=== PATIENT | female | born 1930 | race American Indian/Alaskan Native ===

== ENCOUNTER 2017-07-16 08:28 | Observation (INO) | payer OTHER ==
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
[2017-07-16] MEDS ORDERED: KETOROLAC TROMETHAMINE 30 MG/1 ML VIAL IVPUSH ONE (09:09)
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
[2017-07-16] MEDS ORDERED: ACETAMINOPHEN 1000 MG/100 ML VIAL (NON FORMULARY) IVPB ONE (09:43)
[2017-07-16] MEDS ORDERED: ACETAMINOPHEN INJECTION 100 ML IVPB ONE (09:51)
[2017-07-16 10:13] LABS: BASO % 0.8 % (0-2.0); EOS % 2.8 % (0-4.5); HEMOGLOBIN 12.3 GM/dL (10.7-15.3); LYMPH % 12.8 % (8-40); MCH 29.1 pg (25.7-33.7); MCHC 34.1 g/dl (32.0-36.0); MEAN CELL VOLUME 85.4 fl (80-96); MEAN PLT VOLUME 7.6 fl (7.5-11.1); MONO % 12.2 % (3.8-10.2); NEUT % 71.4 % (42.8-82.8); PLATELET COUNT 333 K/MM3 (134-434); RBC 4.21 M/mm3 (3.60-5.2); RDW 12.9 % (11.6-15.6); WHITE BLOOD COUNT 10.4 K/mm3 (4.0-10.0)
[2017-07-16 10:14] LABS: INR 1.06 (0.82-1.09)
[2017-07-16 10:33] LABS: N-TERMINAL BNP 2325.02 pg/ml (5-450)
[2017-07-16] MEDS ORDERED: traMADol HCL 50 MG TABLET PO ONE (10:34)
[2017-07-16 10:54] LABS: ALK PHOS 57 U/L (45-117); ANION GAP 12 (8-16); BILIRUBIN,TOTAL 0.7 mg/dL (0.2-1.0); BLOOD UREA NITROGEN 29 mg/dL (7-18); CALCIUM 9.7 mg/dL (8.5-10.1); CHLORIDE 92 mmol/L (98-107); CO2 24 mmol/L (21-32); CREATININE 1.7 mg/dL (0.55-1.02); GLUCOSE,RANDOM 174 mg/dL (74-106); POTASSIUM 4.4 mmol/L (3.5-5.1); SGOT/AST 12 U/L (15-37); SGPT/ALT 13 U/L (12-78); SODIUM 128 mmol/L (136-145); TOT PROT 7.1 g/dl (6.4-8.2); URIC ACID 6.3 mg/dL (2.6-7.2)
[2017-07-16] MEDS ORDERED: traMADol HCL 50 MG TABLET ONE (11:18)
[2017-07-16 13:09] VITALS: BMI 29.2
--- NOTE | 2017-07-16 16:19 | CON.ORTH ---
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: CVA (Residual rt sided weakness) Cardio/Vascular: Yes: CAD, CHF, HTN, Hyperlipdemia Musculoskeletal: Yes: Osteoarthritis Endocrine: Yes: Diabetes Mellitus - Alcohol/Substance Use Hx Alcohol Use: No - Smoking History Smoking history: Never smoked Have you smoked in the past 12 months: No Aproximately how many cigarettes per day: 0 - Social History Usual Living Arrangement: With Child ADL: Independent History of Recent Travel: No Home Medications - Allergies Allergies/Adverse Reactions: Allergies Allergy/AdvReac Type Severity Reaction Status Date / Time No Known Allergies Allergy Verified 07/16/17 08:34 - Home Medications Home Medications: Ambulatory Orders Linagliptin [Tradjenta] 5 mg PO DAILY 04/14/16 Metoprolol Succinate [Toprol XL -] 25 mg PO DAILY 04/14/16 Nifedipine ER [Procardia XL -] 30 mg PO DAILY 04/14/16 Olmesartan Medoxomil [Benicar -] 20 mg PO DAILY 04/14/16 Clopidogrel Bisulfate [Plavix -] 75 mg PO DAILY tablet 04/24/16 Rosuvastatin [Crestor -] 10 mg PO HS tablet 04/24/16 Physical Exam for Ortho Vital Signs: Vital Signs Temperature 98.2 F 07/16/17 08:35 Pulse Rate 81 07/16/17 13:03 Respiratory Rate 18 07/16/17 13:03 Blood Pressure 142/92 07/16/17 13:03 O2 Sat by Pulse Oximetry (%) 97 07/16/17 13:03 Labs: CBC, BMP 07/16/17 09:42 07/16/17 10:34 INR, PTT INR 1.06 (0.82-1.09) 07/16/17 09:42 - Lower Extremity Knee: Yes: Right, Limited ROM, Pain, Swelling, Tenderness, Other (2+ effusion, + ttp, ROM 0-70, able to SLR, nvi) Imaging - Results X-ray: Report Reviewed, Image Reviewed Assessment/Plan 87 YOF with h/o osteoarthritis (states [id number] right knee), CHF, CKD, DM, CVA with residual deficits, HTN, HLD, and CAD who c/o right knee pain. No specific injury or trauma. a/p- right knee djd- medial and PF Risks and benefits were d/w pt and family in detail Will aspirate and inject depo-medrol tomorrow am Family agrees will obtain consent and perform tomorrow d/w Dr. Fontana
--- NOTE | 2017-07-16 16:31 | EKG ---
Test Reason : Blood Pressure : / mmHG Vent. Rate : 086 BPM Atrial Rate : 086 BPM P-R Int : 168 ms QRS Dur : 108 ms QT Int : 380 ms P-R-T Axes : 062 -20 066 degrees QTc Int : 454 ms SINUS RHYTHM WITH FREQUENT PREMATURE VENTRICULAR COMPLEXES LOW VOLTAGE QRS BORDERLINE ECG WHEN COMPARED WITH ECG OF 14-APR-2016 11:02, VENT. RATE HAS DECREASED BY 48 BPM Confirmed by MD SARTHAK, FORREST ([id number]) on 07/16/2017 4:31:06 PM Referred By: Confirmed By:FORREST DE LEÓN MD
[2017-07-16] MEDS ORDERED: methylPREDNISolone ACET (DEPO) 80 MG/1 ML VIAL IAR ONE (17:15)
[2017-07-16] MEDS ORDERED: KETOROLAC TROMETHAMINE 15 MG/ML VIAL IVPB ONE (20:30)
[2017-07-17] MEDS: INSULIN SLIDING SCALE (NOVOLOG) 1 VIAL SQ SCH ×4 (06:07→21:13)
[2017-07-17 08:06] LABS: ALK PHOS 53 U/L (45-117); ANION GAP 9 (8-16); BILIRUBIN,TOTAL 0.4 mg/dL (0.2-1.0); BLOOD UREA NITROGEN 27 mg/dL (7-18); CALCIUM 9.1 mg/dL (8.5-10.1); CHLORIDE 95 mmol/L (98-107); CO2 25 mmol/L (21-32); CREATININE 1.6 mg/dL (0.55-1.02); GLUCOSE,RANDOM 118 mg/dL (74-106); POTASSIUM 4.7 mmol/L (3.5-5.1); SGOT/AST 10 U/L (15-37); SGPT/ALT 11 U/L (12-78); SODIUM 129 mmol/L (136-145); TOT PROT 6.5 g/dl (6.4-8.2)
[2017-07-17] MEDS ORDERED: LIDOCAINE HCL 1%, 10 MG/ML (20ML VIAL) ONE (09:31)
[2017-07-17] MEDS ORDERED: PT OWN MED DRAWER 7, Y5N ONE (09:33)
[2017-07-17] MEDS: HEPARIN NA (PORCINE) 5,000 UNITS/ML 1ML VIAL SQ SCH ×3 (09:42→21:06)
[2017-07-17] MEDS: CELECOXIB 200 MG CAPSULE PO SCH ×2 (09:42→21:06)
[2017-07-17] MEDS: metoPROLOL SUCCINATE 25 MG TAB.SR.24H (FP) PO SCH (09:42)
[2017-07-17] MEDS: VALSARTAN 160 MG TABLET (UD) PO SCH (09:42)
[2017-07-17] MEDS: PANTOPRAZOLE 40 MG TABLET (FP) PO SCH (09:42)
[2017-07-17] MEDS: NIFEdipine E.R. 30 MG TABLET (FP) PO SCH (09:42)
[2017-07-17] MEDS: CLOPIDOGREL BISULFATE 75 MG TABLET (FP) PO SCH (09:42)
[2017-07-17] MEDS ORDERED: methylPREDNISolone ACET (DEPO) 80 MG/1 ML VIAL IAR ONE (09:45)
[2017-07-17 11:28] LABS: HEMATOCRIT 33.9 % (32.4-45.2); MCH 30.3 pg (25.7-33.7); MCHC 35.3 g/dl (32.0-36.0); MEAN CELL VOLUME 85.9 fl (80-96); MEAN PLT VOLUME 7.5 fl (7.5-11.1); PLATELET COUNT 328 K/MM3 (134-434); RBC 3.95 M/mm3 (3.60-5.2); RDW 13.1 % (11.6-15.6); WHITE BLOOD COUNT 10.4 K/mm3 (4.0-10.0)
--- NOTE | 2017-07-17 11:50 | PN ---
Progress Note (short form) - Note Progress Note: I aspirated the knee and got 80cc of clear fluid. I injected 80mg depomedrol and 10cc lidocaine into the knee.
[2017-07-17 12:41] LABS: ANISOCYTOSIS 0; MACROCYTOSIS 0; PLATELET ESTIMATE NORMAL
--- NOTE | 2017-07-17 13:40 | HP ---
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: CVA (Residual rt sided weakness) Cardiovascular: Yes: CAD, CHF, HTN, Hyperlipdemia Musculoskeletal: Yes: Osteoarthritis Endocrine: Yes: Diabetes Mellitus - Smoking History Smoking history: Never smoked Have you smoked in the past 12 months: No Aproximately how many cigarettes per day: 0 - Alcohol/Substance Use Hx Alcohol Use: No - Social History ADL: Independent History of Recent Travel: No Home Medications - Allergies Allergies/Adverse Reactions: Allergies Allergy/AdvReac Type Severity Reaction Status Date / Time No Known Allergies Allergy Verified 07/16/17 08:34 - Home Medications Home Medications: Ambulatory Orders Linagliptin [Tradjenta] 5 mg PO DAILY 04/14/16 Metoprolol Succinate [Toprol XL -] 25 mg PO DAILY 04/14/16 Nifedipine ER [Procardia XL -] 30 mg PO DAILY 04/14/16 Olmesartan Medoxomil [Benicar -] 20 mg PO DAILY 04/14/16 Clopidogrel Bisulfate [Plavix -] 75 mg PO DAILY tablet 04/24/16 Rosuvastatin [Crestor -] 10 mg PO HS tablet 04/24/16 Physical Examination Vital Signs: Vital Signs Temperature 98.5 F 07/17/17 09:00 Pulse Rate 95 H 07/17/17 09:00 Respiratory Rate 18 07/17/17 09:00 Blood Pressure 157/104 07/17/17 09:00 O2 Sat by Pulse Oximetry (%) 96 07/16/17 23:30 Labs: CBC, BMP 07/17/17 07:06 07/17/17 07:06
[2017-07-17] MEDS ORDERED: INSULIN (NOVOLOG) ASPART 100 UNITS/ML 10ML VIAL ONE (21:12)
[2017-07-17] MEDS ORDERED: ROSUVASTATIN CA 10 MG TABLET (FP) PO SCH (22:00)
[2017-07-18] MEDS: INSULIN SLIDING SCALE (NOVOLOG) 1 VIAL SQ SCH ×2 (06:00→10:08)
[2017-07-18] MEDS ORDERED: PT OWN MED DRAWER 7, Y5N ONE (09:40)
[2017-07-18] MEDS: VALSARTAN 160 MG TABLET (UD) PO SCH (09:56)
[2017-07-18] MEDS: NIFEdipine E.R. 30 MG TABLET (FP) PO SCH (09:56)
[2017-07-18] MEDS: PANTOPRAZOLE 40 MG TABLET (FP) PO SCH (09:57)
[2017-07-18] MEDS: CELECOXIB 200 MG CAPSULE PO SCH (09:57)
[2017-07-18] MEDS: metoPROLOL SUCCINATE 25 MG TAB.SR.24H (FP) PO SCH (09:57)
[2017-07-18] MEDS: HEPARIN NA (PORCINE) 5,000 UNITS/ML 1ML VIAL SQ SCH (09:57)
[2017-07-18] MEDS: CLOPIDOGREL BISULFATE 75 MG TABLET (FP) PO SCH (09:57)
[2017-07-18] MEDS ORDERED: INSULIN (NOVOLOG) ASPART 100 UNITS/ML 10ML VIAL ONE (10:07)
--- NOTE | 2017-07-18 10:19 | PN ---
Progress Note (short form) - Note Progress Note: Pt's right knee doing much better after aspiration of fluid. Pt's daughter states she can walk, put some weight on her right leg. Decreased joint effusion. Right knee not hot, no erythema, no signs of infection. Good ROM Imp Pt doing well, much better. Rec WBAT, ambulate, P.T. if necessary Can DC from an ortho pov
[2017-07-18 15:31] VITALS: BP 126/65; PULSE 79; TEMP 98
== END 2017-07-18 15:55 | disposition home or self-care (01) ==
LOC: JER 08:28 → UNDOADMOB 11:56 → INTOOBSV 11:56 → JERBED 11:56 → J6S 14:59
PROVIDERS: ADMIT Internal Medicine; ATTEND Internal Medicine
PROC: 0S9C3ZZ Drainage of Right Knee Joint, Percutaneous Approach (ICD-10-PCS; principal; 2017-07-16)
PROC: 3E013VG Introduction of Insulin into Subcutaneous Tissue, Percutaneous Approach (ICD-10-PCS; 2017-07-16)
PROC: 3E013GC Introduction of Other Therapeutic Substance into Subcutaneous Tissue, Percutaneous Approach (ICD-10-PCS; 2017-07-16)
DX: M25.461 Effusion, right knee (principal); R79.82 Elevated C-reactive protein (CRP); M17.11 Unilateral primary osteoarthritis, right knee; I50.9 Heart failure, unspecified; I12.9 Hypertensive chronic kidney disease with stage 1 through stage 4 chronic kidney disease, or unspecified chronic kidney disease; E11.22 Type 2 diabetes mellitus with diabetic chronic kidney disease; N18.9 Chronic kidney disease, unspecified; E78.5 Hyperlipidemia, unspecified; I25.10 Atherosclerotic heart disease of native coronary artery without angina pectoris; Z79.01 Long term (current) use of anticoagulants; I69.351 Hemiplegia and hemiparesis following cerebral infarction affecting right dominant side
CPT/HCPCS: 36415; 73562-TC-RT-FY; 73700-TC-RT; 80053; 82962; 83880; 84550; 85025; 85610; 85651; 86140; 93005; 93010; 96372; 97116-GP; 97161-GP; 99285-25; G0378; J0131; J1644

== ENCOUNTER 2018-04-20 11:52 | Inpatient (IN) | payer OTHER ==
--- NOTE | 2018-04-20 12:08 | PDOC ---
History of Present Illness - General Stated Complaint: KNEE PAIN Time Seen by Provider: 04/20/18 11:59 - History of Present Illness Initial Comments: 04/20/18 12:01 88 yo F with h/o right knee OA, DM, HTN, CKD, CVA ( residual R sided weakness) who p/w Rt. knee pain and swelling. Patient with acute right knee pain, and swelling x 2 days. Denies trauma to knee. Typically ambulates with cane , but has been unable to bear weight on right knee beginning yesterday. Denies fall , LOC, head trauma. Seen by Dr. Fontana and admitted to [facility] ( 07/2017) with similar R knee complaint, and inability to ambulate, with R knee aspiration, and depo-solumedrol injection. CT RLE with degenerative R knee arthritis, and mod suprapatellar effusion. Has attempted Celecoxib 200 mg with no relief. Patient denies Palpitations, cough, wheezing, N/V, F/C, CP, SOB, urinary complaints, hematuira, BPR, abdominal pain, diarrhea, constipation, lightheadedness, weakness, sensory changes. PMHx: as noted above ROS: as noted SHx: Denies tobacco, Etoh, IVDA Allergies: NKDA Past History - Past Medical History Allergies/Adverse Reactions: Allergies Allergy/AdvReac Type Severity Reaction Status Date / Time No Known Allergies Allergy Verified 04/20/18 12:09 Home Medications: Ambulatory Orders Celecoxib [Celebrex] 200 mg PO BID 04/20/18 Clopidogrel Bisulfate [Plavix] 75 mg PO DAILY 04/20/18 Linagliptin [Tradjenta] 5 mg PO DAILY 04/20/18 Metoprolol Succinate [Toprol Xl] 25 mg PO DAILY 04/20/18 Nifedipine ER [Procardia Xl -] 30 mg PO DAILY 04/20/18 Olmesartan Medoxomil [Benicar] 20 mg PO DAILY 04/20/18 Rosuvastatin [Crestor -] 10 mg PO DAILY 04/20/18 Anemia: No Asthma: No Cancer: No Cardiac Disorders: Yes CVA: Yes (Pt notes balance deficit) COPD: No CHF: No Diabetes: Yes Dialysis: No (CKD) GI Disorders: Yes Disorders: Yes HTN: Yes Hypercholesterolemia: Yes Liver Disease: No Thyroid Disease: No - Surgical History Abdominal Surgery: Yes Appendectomy: No Cardiac Surgery: No Cholecystectomy: No Lung Surgery: No Neurologic Surgery: No Orthopedic Surgery: No - Suicide/Smoking/Psychosocial Hx Smoking Status: No Smoking History: Never smoked Have you smoked in the past 12 months: No Number of Cigarettes Smoked Daily: 0 Hx Alcohol Use: No Drug/Substance Use Hx: No Substance Use Type: None Hx Substance Use Treatment: No Review of Systems - Review of Systems Comments:: 04/20/18 12:09 GENERAL/CONSTITUTIONAL: No fever or chills. No weakness. HEAD, EYES, EARS, NOSE AND THROAT: No change in vision. No ear pain or discharge. No sore throat. CARDIOVASCULAR: No chest pain or shortness of breath RESPIRATORY: No cough, wheezing, or hemoptysis. GASTROINTESTINAL: No nausea, vomiting, diarrhea or constipation. GENITOURINARY: No dysuria, frequency, or change in urination. MUSCULOSKELETAL: + R knee pain and swelling. No joint or muscle swelling or pain. No neck or back pain. SKIN: No rash NEUROLOGIC: No headache, vertigo, loss of consciousness, or change in strength/ sensation. ENDOCRINE: No increased thirst. No abnormal weight change HEMATOLOGIC/LYMPHATIC: No anemia, easy bleeding, or history of blood clots. ALLERGIC/IMMUNOLOGIC: No hives or skin allergy. *Physical Exam - Physical Exam Comments: 04/20/18 12:09 GENERAL: Awake, alert, and fully oriented, in no acute distress HEAD: No signs of trauma, normocephalic, atraumatic EYES: PERRLA, EOMI, sclera anicteric, conjunctiva clear ENT: Hearing grossly normal, nares patent, oropharynx clear without exudates. Moist mucosa NECK: Normal ROM, supple, no lymphadenopathy, JVD, or masses LUNGS: No distress, speaks full sentences, clear to auscultation bilaterally HEART: Regular rate and rhythm, normal S1 and S2, no murmurs, rubs or gallops, peripheral pulses normal and equal bilaterally. ABDOMEN: Soft, nontender, normoactive bowel sounds. No guarding, no rebound. No masses EXTREMITIES : Normal inspection, Normal range of motion, no edema. No clubbing or cyanosis. R KNEE: + effusion. Neg warmth, erythema. Palpable popliteal pulse. Limited ROM/ Knee flexion d/t pain. NEUROLOGICAL: Cranial nerves II through XII grossly intact. Normal speech, normal gait, no focal sensorimotor deficits SKIN: Warm, Dry, normal turgor, no rashes or lesions noted Procedures - Arthrocentesis Indication: Septic Joint Arthrocentesis Site: right: knee Flexion: 20-30 degree Betadine Prep: Yes Sterile Dressing Applied: Yes Dry Tap: No Fluid Color: Yellow Fluid Amount mL: 15 (70 ml aspirated) Anesthesia: 1% Lidocaine Needle Size (guage): 18g Complications: No ED Treatment Course - LABORATORY CBC & Chemistry Diagram: 04/20/18 12:26 04/20/18 12:26 Medical Decision Making - Medical Decision Making 04/20/18 12:10 88 yo F with h/o right knee OA, DM, HTN, CKD, CVA ( residual R sided weakness) who p/w atraumatic right knee pain and swelling. Rectal temp 100.9, HR 109, vitals otherwise wnl. + Right knee effusion, with absent warmth or erythema. RLE neurovascularly intact. Possible d/t OA. vs. septic arthritis/bursitis. will consider osteomyelitis. No evidence of overlying cellulites. . Will provide analgesia and reassess. ED Course: 04/20/18 12:24 CBC, CMP, CARDIAC, LA, VBG, ESR, CRP, RLE U/S NS 20 CC/KG 04/20/18 13:09 EKG: Sinus tach 110, with PVCs. Absent MAN, STD. Nml interval and axis duration. Absent Q waves. Nml R wave progression. 04/20/18 15:02 BUN/Cr: 33/1.8 CRP: 18.9 Na: 128 04/20/18 15:03 R KNEE RAD: Increased R knee effusion (07/16/17), with degenerative arthritis, chondrocalcinosis 04/20/18 15:08 Joint aspirated with yellow, slightly cloudy fluid. 70 ml Sent to lab for further testing, Cell count with dif, crystals, culture. Anand/Kinjal 04/20/18 15:[address] Whitaker and admitted to med/surg. *DC/Admit/Observation/Transfer Diagnosis at time of Disposition: Swelling of knee joint, right - Discharge Dispostion Condition at time of disposition: Stable Decision to Admit order: Yes - Referrals Referrals: Rayo Alberts MD [Primary Care Provider] - - Patient Instructions Printed Discharge Instructions: DI for Knee Effusion Additional Instructions: Please return to the emergency department with any new or worsening symptoms or concerns. Please follow up with your primary care physician within 72 hours. - Post Discharge Activity - Attestations Physician Attestion: 04/20/18 12:12 I attest to the information provided in this note.
--- NOTE | 2018-04-20 12:52 | PDOC ---
Attending Attestation - Resident Resident Name: Bernard Owens - ED Attending Attestation I have performed the following: I have examined & evaluated the patient, The case was reviewed & discussed with the resident, I agree w/resident's findings & plan, Exceptions are as noted - HPI HPI: 04/20/18 12:53 The patient is a 88 year old female with a past medical history significant for OA (right knee), CHF, CKD, DM, CVA (w/ right side weakness), HTN, HLD, and CAD on plavix presents to the emergency department with right knee pain. The patient presents with progressive 2 days of right knee pain and swelling, with 1 -day difficulty bearing weight and ambulating. The patient reports the symptoms worsened today. The patient had a similar visit in July 2017, the patient presented with right knee pain with difficulty bearing weight and ambulating. The patients CT of the lower extremity showed effusion, that was drained by Dr. Sumner (ortho), then injected 80 mg of Depo-Medrol Denies recent trauma or injury to the knee, fever, chills, chest pain, SOB, recent falls, LOC, nausea, vomiting. Allergies: NKDA Social history: No tobacco, alcohol or drug use reported Surgical history: abdominal surgery. PCP: Dr. Jane Alberts - Physicial Exam PE: 04/20/18 12:54 agree with resident exam - Medical Decision Making 04/20/18 12:54 88yo F with MMP including OA presents to the ED with atraumatic progressive R sided knee pain. Vitals remarkable for tachycardia to 109, low grade temp to 100.1. DDx includes septic joint vs inflammatory effusion vs bakers cyst vs DVT. Plan: -labs -XR -US -tap -anticipate admission 04/20/18 15:49 Labs with WBC 17, elevated ESR/CRP XR with large effusion US neg for DVT/cyst Tap done with 70cc of cloudy yellow fluid. Pt covered with Vanc/Ceftriaxone Case discussed with Dr Whitaker, accepts pt for admission Case discussed in detail with admitting physician including history, physical exam and ancillary studies. Admitting physician has assumed care for the patient, will follow all pending diagnostics and will complete the evaluation and treatment. *DC/Admit/Observation/Transfer Diagnosis at time of Disposition: Swelling of knee joint, right - Discharge Dispostion Condition at time of disposition: Stable Decision to Admit order: Yes Decision to Admit order Date/Time: Decision to Admit Order Category Date Time Status Decision to Admit to Hospital Routine Admission 04/20/18 15:26 Active - Referrals Referrals: Rayo Alberts MD [Primary Care Provider] - - Patient Instructions Printed Discharge Instructions: DI for Knee Effusion Additional Instructions: Please return to the emergency department with any new or worsening symptoms or concerns. Please follow up with your primary care physician within 72 hours. - Post Discharge Activity - Attestations Physician Attestion: 04/20/18 15:52 I, Dr. Cam Hancock MD, attest that this document has been prepared under my direction and personally reviewed by me in its entirety. I further attest, that it accurately reflects all work, treatment, procedures and medical decision -making performed by me. Heart Score/ECG Review #1 04/20/18 13:37 Twelve-lead EKG was performed and reviewed by me. Sinus tachycardia, rate 110. Frequent PVCs. Normal axis. No ST elevations.
[2018-04-20 12:53] LABS: VENOUS PC02 43.2 mmHg (38-52); VENOUS PH 7.38 (7.32-7.42); VENOUS PO2 31.2 mmHg (28-48)
[2018-04-20 12:54] LABS: BASO % 0.6 % (0-2.0); EOS % 0.3 % (0-4.5); HEMATOCRIT 40.7 % (32.4-45.2); LYMPH % 5.2 % (8-40); MCH 28.8 pg (25.7-33.7); MCHC 34.5 g/dl (32.0-36.0); MEAN CELL VOLUME 83.4 fl (80-96); MEAN PLT VOLUME 7.8 fl (7.5-11.1); MONO % 10.4 % (3.8-10.2); NEUT % 83.5 % (42.8-82.8); PLATELET COUNT 371 K/MM3 (134-434); RBC 4.88 M/mm3 (3.60-5.2); RDW 13.9 % (11.6-15.6)
[2018-04-20 13:10] LABS: INR 1.14 (0.83-1.09); PROTHROMBIN TIME (PATIENT) 13.5 SEC (9.7-13.0)
[2018-04-20 13:12] LABS: ALBUMIN 2.9 g/dl (3.4-5.0); ALK PHOS 86 U/L (45-117); ANION GAP 8 MMOL/L (8-16); BILIRUBIN,TOTAL 0.8 mg/dL (0.2-1); BLOOD UREA NITROGEN 33 mg/dL (7-18); CALCIUM 9.5 mg/dL (8.5-10.1); CHLORIDE 95 mmol/L (98-107); CO2 25 mmol/L (21-32); CREATININE 1.9 mg/dL (0.55-1.3); GLUCOSE,RANDOM 205 mg/dL (74-106); POTASSIUM 4.1 mmol/L (3.5-5.1); SGOT/AST 13 U/L (15-37); SGPT/ALT 13 U/L (13-61); SODIUM 128 mmol/L (136-145); TOT PROT 7.4 g/dl (6.4-8.2)
[2018-04-20 13:13] LABS: ACTIVATED PTT 28.3 SECONDS (25.2-36.5)
[2018-04-20] MEDS ORDERED: LIDOCAINE HCL 1%, 10 MG/ML (50 mL VIAL) IO ONE (14:02)
[2018-04-20] MEDS ORDERED: LIDOCAINE HCL 1%, 10 MG/ML (20ML VIAL) ONE (14:17)
[2018-04-20] MEDS ORDERED: VANCOMYCIN 1,000 MG in DEXTROSE 5%-WATER - 250 ML IVPB ONE (15:50)
[2018-04-20] MEDS ORDERED: CEFTRIAXONE 2,000 MG in DEXTROSE 5%-WATER - 50 ML IVPB ONE (15:51)
[2018-04-20] MEDS ORDERED: CEFTRIAXONE 2 GM/100 ML BAG IVPB ONE ×2 (16:09)
[2018-04-20] MEDS ORDERED: VANCOMYCIN 1 GRAM (PRE-DOCKED) 1,000 MG/250 ML BAG IVPB ONE (16:09)
[2018-04-20 17:04] LABS: SYNOVIAL FLUID SOURCE SYNOVIAL
[2018-04-20 17:05] LABS: SYNOVIAL FLUID RBC 7720 /mm3
[2018-04-20 17:31] LABS: SYNOVIAL FLUID LYMPHOCYTES 4 %; SYNOVIAL FLUID MACROPHAGES 2 %; SYNOVIAL FLUID MONOCYTES 9 %; SYNOVIAL FLUID NEUTROPHILS 85 %
[2018-04-20 18:04] VITALS: BMI 29.0
[2018-04-20] MEDS: HEPARIN NA (PORCINE) 5,000 UNITS/ML 1ML VIAL SQ SCH (22:45)
[2018-04-20] MEDS: PIPERACILLIN/TAZOB 3.375 GM 3.375 GM in DEXTROSE 5%-WATER - 50 ML IVPB SCH (23:45)
[2018-04-21] MEDS ORDERED: DEXTROSE 5%-WATER - 50 ML IVPB ONE ×2 (03:58→11:44)
[2018-04-21] MEDS ORDERED: PIPERACILLIN/TAZOBACTAM 3.375 GM VIAL IVPB ONE (03:58)
[2018-04-21] MEDS ORDERED: VANCOMYCIN 1 GRAM (PRE-DOCKED) 1,000 MG/250 ML BAG IVPB ONE (04:00)
[2018-04-21] MEDS: PIPERACILLIN/TAZOB 3.375 GM 3.375 GM in DEXTROSE 5%-WATER - 50 ML IVPB SCH (04:07)
[2018-04-21] MEDS: sitaGLIPtin PHOSPHATE 25 MG TABLET (FP) PO SCH (06:07)
[2018-04-21] MEDS: HEPARIN NA (PORCINE) 5,000 UNITS/ML 1ML VIAL SQ SCH ×3 (06:07→21:49)
[2018-04-21] MEDS: INSULIN SLIDING SCALE (NOVOLOG) 1 VIAL SQ SCH ×4 (06:08→21:49)
[2018-04-21 07:15] LABS: BASO % 0.6 % (0-2.0); EOS % 1.5 % (0-4.5); HEMATOCRIT 37.9 % (32.4-45.2); HEMOGLOBIN 12.4 GM/dL (10.7-15.3); LYMPH % 9.2 % (8-40); MCH 27.4 pg (25.7-33.7); MCHC 32.7 g/dl (32.0-36.0); MEAN CELL VOLUME 83.6 fl (80-96); MONO % 12.2 % (3.8-10.2); NEUT % 76.5 % (42.8-82.8); PLATELET COUNT 346 K/MM3 (134-434); RBC 4.54 M/mm3 (3.60-5.2); RDW 13.7 % (11.6-15.6); WHITE BLOOD COUNT 14.8 K/mm3 (4.0-10.0)
[2018-04-21 07:34] LABS: ALBUMIN 2.3 g/dl (3.4-5.0); ALK PHOS 82 U/L (45-117); ANION GAP 7 MMOL/L (8-16); BILIRUBIN,TOTAL 0.5 mg/dL (0.2-1); BLOOD UREA NITROGEN 29 mg/dL (7-18); CALCIUM 9.2 mg/dL (8.5-10.1); CHLORIDE 95 mmol/L (98-107); CO2 23 mmol/L (21-32); CREATININE 1.9 mg/dL (0.55-1.3); GLUCOSE,RANDOM 166 mg/dL (74-106); POTASSIUM 4.2 mmol/L (3.5-5.1); SGOT/AST 15 U/L (15-37); SGPT/ALT 14 U/L (13-61); SODIUM 126 mmol/L (136-145); TOT PROT 6.2 g/dl (6.4-8.2)
--- NOTE | 2018-04-21 09:55 | EKG ---
Test Reason : Blood Pressure : / mmHG Vent. Rate : 110 BPM Atrial Rate : 110 BPM P-R Int : 160 ms QRS Dur : 106 ms QT Int : 356 ms P-R-T Axes : 056 -10 072 degrees QTc Int : 481 ms SINUS TACHYCARDIA WITH FREQUENT PREMATURE VENTRICULAR COMPLEXES OTHERWISE NORMAL ECG WHEN COMPARED WITH ECG OF 16-JUL-2017 10:14, VENT. RATE HAS INCREASED Confirmed by AINSLEY BRUNO MD ([id number]) on 04/21/2018 9:54:21 AM Referred By: Confirmed By:AINSLEY BRUNO MD
[2018-04-21] MEDS ORDERED: PATIENT'S OWN MEDICATION (NON-FORMULARY) (Olmesartan Medoxomil [Benicar] 20 MG) PO SCH (10:00)
[2018-04-21] MEDS ORDERED: PIPERACILLIN/TAZOB 3.375 GM 3.375 GM in DEXTROSE 5%-WATER - 50 ML IVPB SCH (10:00)
[2018-04-21] MEDS ORDERED: PATIENT'S OWN MEDICATION (NON-FORMULARY) (Linagliptin [Tradjenta] 5 MG) PO SCH (10:00)
[2018-04-21] MEDS: CELECOXIB 200 MG CAPSULE PO SCH ×2 (10:11→21:49)
[2018-04-21] MEDS: NIFEdipine E.R. 30 MG TABLET (FP) PO SCH (10:11)
[2018-04-21] MEDS: VALSARTAN 160 MG TABLET (UD) PO SCH (10:11)
[2018-04-21] MEDS: metoPROLOL SUCCINATE 25 MG TAB.SR.24H (FP) PO SCH (10:11)
[2018-04-21] MEDS: CLOPIDOGREL BISULFATE 75 MG TABLET (FP) PO SCH (10:11)
--- NOTE | 2018-04-21 11:24 | CON.ID ---
Consult Consult Specialty:: infectious diseases Referred by:: Reason for Consultation:: swelling of the knee joint,pain knee joint - History of Present Illness Chief Complaint: pain and swelling of the rt knee joint History of Present Illness: 88 year old female with a past medical history significant for OA , CHF, CKD, DM , CVA , HTN, HLD, and CAD on plavix presents to the emergency department with right knee pain. The patient presents with progressive 2 days of right knee pain and swelling, with 1-day difficulty bearing weight and ambulating. The patient reports the symptoms worsened today. her daughter in the room and mentions that this is the second time that the patient has had this swelling and fluid in the knee joint and also had it aspirated last time. Patient was seen by ortho and the knee joint was aspirated Denies recent trauma or injury to the knee, fever, chills, chest pain, SOB, recent falls, LOC, nausea, vomiting. 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: CVA (Residual rt sided weakness) Cardio/Vascular: Yes: CAD, CHF, HTN, Hyperlipdemia Musculoskeletal: Yes: Osteoarthritis Endocrine: Yes: Diabetes Mellitus - Alcohol/Substance Use Hx Alcohol Use: No - Smoking History Smoking history: Never smoked Have you smoked in the past 12 months: No Aproximately how many cigarettes per day: 0 - Social History Usual Living Arrangement: With Child ADL: Independent History of Recent Travel: No Home Medications - Allergies Allergies/Adverse Reactions: Allergies Allergy/AdvReac Type Severity Reaction Status Date / Time No Known Allergies Allergy Verified 04/20/18 12:09 - Home Medications Home Medications: Ambulatory Orders Celecoxib [Celebrex] 200 mg PO BID 04/20/18 Clopidogrel Bisulfate [Plavix] 75 mg PO DAILY 04/20/18 Linagliptin [Tradjenta] 5 mg PO DAILY 04/20/18 Metoprolol Succinate [Toprol Xl] 25 mg PO DAILY 04/20/18 Nifedipine ER [Procardia Xl -] 30 mg PO DAILY 04/20/18 Olmesartan Medoxomil [Benicar] 20 mg PO DAILY 04/20/18 Rosuvastatin [Crestor -] 10 mg PO DAILY 04/20/18 Review of Systems - Review of Systems Constitutional: reports: Fever Eyes: reports: No Symptoms HENT: reports: No Symptoms Neck: reports: No Symptoms Cardiovascular: reports: No Symptoms Respiratory: reports: No Symptoms Gastrointestinal: reports: No Symptoms Genitourinary: reports: No Symptoms Musculoskeletal: reports: Joint Pain, Joint Swelling Integumentary: reports: Erythema (of the rt knee joint) Neurological: reports: No Symptoms Endocrine: reports: No Symptoms Hematology/Lymphatic: reports: No Symptoms Psychiatric: reports: No Symptoms Physical Exam Vital Signs: Vital Signs Temperature 98.3 F 04/21/18 10:10 Pulse Rate 102 H 04/21/18 10:10 Respiratory Rate 20 04/21/18 10:10 Blood Pressure 138/67 04/21/18 10:10 O2 Sat by Pulse Oximetry (%) 98 04/21/18 09:00 Constitutional: Yes: Well Nourished, Calm, Mild Distress Eyes: Yes: Conjunctiva Clear HENT: Yes: Atraumatic Neck: Yes: Supple, Trachea Midline Cardiovascular: Yes: Regular Rate and Rhythm Respiratory: Yes: Regular, CTA Bilaterally Gastrointestinal: Yes: Normal Bowel Sounds, Soft Musculoskeletal: Yes: Joint Swelling (rt knee) Extremities: Yes: Other Integumentary: Yes: Erythema (rt knee) Neurological: Yes: Alert, Oriented Psychiatric: Yes: Alert, Oriented Labs: CBC, BMP 04/21/18 06:30 04/21/18 06:30
[2018-04-21] MEDS ORDERED: cefTRIAXone SODIUM 1 GM VIAL ONE (11:44)
[2018-04-21] MEDS: CEFTRIAXONE 1 GM in DEXTROSE 5%-WATER - 50 ML IVPB SCH (11:46)
--- NOTE | 2018-04-21 13:04 | HP ---
Admitting History and Physical - Admission History of Present Illness: Pt is a 88 y/o female W/ PMH significant for OA, DM, HTN, CKD and CVA ( residual R sided weakness). Pt presented to the ER w/ Rt. knee pain and swelling wc began acutely 2 days ago. Pt denies any trauma to knee. Typically ambulates with cane , but has been unable to bear weight on right knee beginning yesterday. CT RLE with degenerative R knee arthritis, and mod suprapatellar effusion. Has attempted Celecoxib 200 mg with no relief. RT knee was aspirated in ER. 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: CVA (Residual rt sided weakness) Cardiovascular: Yes: CAD, CHF, HTN, Hyperlipdemia Musculoskeletal: Yes: Osteoarthritis Rheumatology: Yes: Other (OA) Endocrine: Yes: Diabetes Mellitus - Smoking History Smoking history: Never smoked Have you smoked in the past 12 months: No Aproximately how many cigarettes per day: 0 - Alcohol/Substance Use Hx Alcohol Use: No - Social History ADL: Independent History of Recent Travel: No Home Medications - Allergies Allergies/Adverse Reactions: Allergies Allergy/AdvReac Type Severity Reaction Status Date / Time No Known Allergies Allergy Verified 04/20/18 12:09 - Home Medications Home Medications: Ambulatory Orders Celecoxib [Celebrex] 200 mg PO BID 04/20/18 Clopidogrel Bisulfate [Plavix] 75 mg PO DAILY 04/20/18 Linagliptin [Tradjenta] 5 mg PO DAILY 04/20/18 Metoprolol Succinate [Toprol Xl] 25 mg PO DAILY 04/20/18 Nifedipine ER [Procardia Xl -] 30 mg PO DAILY 04/20/18 Olmesartan Medoxomil [Benicar] 20 mg PO DAILY 04/20/18 Rosuvastatin [Crestor -] 10 mg PO DAILY 04/20/18 Family Disease History - Family Disease History Family History: Unremarkable Review of Systems - Review of Systems Constitutional: reports: No Symptoms Eyes: reports: No Symptoms HENT: reports: No Symptoms Neck: reports: No Symptoms Cardiovascular: reports: No Symptoms Respiratory: reports: No Symptoms Gastrointestinal: reports: No Symptoms Physical Examination Vital Signs: Vital Signs Temperature 98.3 F 04/21/18 10:10 Pulse Rate 102 H 04/21/18 10:10 Respiratory Rate 20 04/21/18 10:10 Blood Pressure 138/67 04/21/18 10:10 O2 Sat by Pulse Oximetry (%) 98 04/21/18 09:00 Constitutional: Yes: Well Nourished Neck: Yes: WNL, Supple Cardiovascular: Yes: WNL, Regular Rate and Rhythm Respiratory: Yes: WNL, Regular, CTA Bilaterally Gastrointestinal: Yes: WNL, Normal Bowel Sounds, Soft Musculoskeletal: Yes: Other ((+) RT knee swelling) Labs: CBC, BMP 04/21/18 06:30 04/21/18 06:30 Problem List - Problems (1) Swelling of knee joint, right Assessment/Plan: Due to degenerative changes Cont IV antibxs Follow cultures WBC is decreasing Cont celebrex As per ortho/ID Code(s): M25.461 - EFFUSION, RIGHT KNEE (2) CAD (coronary artery disease) Assessment/Plan: Pt is on plavix? Will get cardio consult to determine need for plavix Code(s): I25.10 - ATHSCL HEART DISEASE OF [place] CORONARY ARTERY W/O ANG PCTRS (3) HTN (hypertension) Assessment/Plan: Cont nifedipine/metoprolol/diovan Code(s): I10 - ESSENTIAL (PRIMARY) HYPERTENSION (4) Chronic kidney disease Assessment/Plan: Pt also w/ hyponatremia Will get renal consult Check renal US Code(s): N18.9 - CHRONIC KIDNEY DISEASE, UNSPECIFIED Qualifiers: Chronic kidney disease stage: unspecified stage Qualified Code(s): N18.9 - Chronic kidney disease, unspecified (5) Diabetes Assessment/Plan: Cont sliding scale w/ coverage Code(s): E11.9 - TYPE 2 DIABETES MELLITUS WITHOUT COMPLICATIONS (6) HLD (hyperlipidemia) Code(s): E78.5 - HYPERLIPIDEMIA, UNSPECIFIED (7) Osteoarthritis Code(s): M19.90 - UNSPECIFIED OSTEOARTHRITIS, UNSPECIFIED SITE Qualifiers: Osteoarthritis location: knee Osteoarthritis type: unspecified Laterality : right Qualified Code(s): M17.11 - Unilateral primary osteoarthritis, right knee (8) CHF (congestive heart failure) Code(s): I50.9 - HEART FAILURE, UNSPECIFIED Qualifiers: Heart failure type: unspecified Heart failure chronicity: unspecified Qualified Code(s): I50.9 - Heart failure, unspecified
--- NOTE | 2018-04-21 15:28 | PN ---
Progress Note (short form) - Note Progress Note: Ortho Full consult dictated by Dr. Marshall right knee djd
[2018-04-21] MEDS ORDERED: VANCOMYCIN 1 GRAM (PRE-DOCKED) 1,000 MG/250 ML BAG IVPB SCH (16:00)
--- NOTE | 2018-04-21 17:22 | CONS ---
DATE OF CONSULTATION: 04/21/2018 ORTHOPEDIC CONSULTATION HISTORY OF PRESENT ILLNESS: Patient is well known to our service. I have seen her in the past for severe DJD in her right knee. I have aspirated it in the past and injected cortisone. Patient has responded well in the past. Patient now presents to the hospital again with an atraumatic right knee effusion, no specific fall or trauma, no history of fever or chills. In the emergency room, they tapped her knee. The tap revealed clear yellow fluid with a cell count of approximately 13,000. She had a normal white count on her CBC and had no fever. Patient is feeling somewhat better in the bed and now orthopedic consultation has been called. PHYSICAL EXAMINATION: She has no effusion at this time. She has no ecchymosis or edema. She has a great deal of crepitus with a range of motion at the right knee, significant tenderness both medially and laterally and patellofemoral joint. Range of motion about 3 degrees to 95 degrees. Good stability. Good motion right hip ankle and toes. X-rays show severe DJD of her right knee. IMPRESSION: Severe degenerative joint disease right knee with effusion, no evidence of any septic arthritis at this time. Patient can be treated with nonsteroidals. If her pain comes back, we can give her a cortisone injection into her knee. Patient would need a knee replacement, but currently is not scheduled for that and not indicated for that. Patient can be discharged when medically cleared to follow up in my office to discuss options on an outpatient basis. BRAYAN STEWART M.D. [id number]
[2018-04-21] MEDS ORDERED: PT OWN MED DRAWER 7, Y5N ONE (21:12)
[2018-04-21] MEDS: ROSUVASTATIN CA 10 MG TABLET (FP) PO SCH (21:49)
[2018-04-22] MEDS: HEPARIN NA (PORCINE) 5,000 UNITS/ML 1ML VIAL SQ SCH ×3 (05:52→21:21)
[2018-04-22] MEDS: sitaGLIPtin PHOSPHATE 25 MG TABLET (FP) PO SCH (06:00)
[2018-04-22] MEDS: INSULIN SLIDING SCALE (NOVOLOG) 1 VIAL SQ SCH ×4 (06:00→21:21)
[2018-04-22 06:05] LABS: BASO % 0.7 % (0-2.0); HEMATOCRIT 35.8 % (32.4-45.2); HEMOGLOBIN 11.6 GM/dL (10.7-15.3); MCH 27.1 pg (25.7-33.7); MCHC 32.4 g/dl (32.0-36.0); MEAN CELL VOLUME 83.5 fl (80-96); MEAN PLT VOLUME 7.9 fl (7.5-11.1); MONO % 12.7 % (3.8-10.2); NEUT % 70.6 % (42.8-82.8); PLATELET COUNT 350 K/MM3 (134-434); RBC 4.28 M/mm3 (3.60-5.2); RDW 13.7 % (11.6-15.6); WHITE BLOOD COUNT 11.3 K/mm3 (4.0-10.0)
[2018-04-22] MEDS ORDERED: PT OWN MED DRAWER 7, Y5N ONE ×3 (06:26→21:03)
[2018-04-22] MEDS ORDERED: INSULIN (NOVOLOG) ASPART 100 UNITS/ML 10ML VIAL ONE ×2 (06:26→21:03)
[2018-04-22 07:08] LABS: ALBUMIN 2.1 g/dl (3.4-5.0); ALK PHOS 85 U/L (45-117); ANION GAP 7 MMOL/L (8-16); BILIRUBIN,TOTAL 0.3 mg/dL (0.2-1); BLOOD UREA NITROGEN 39 mg/dL (7-18); CALCIUM 8.9 mg/dL (8.5-10.1); CHLORIDE 97 mmol/L (98-107); CO2 23 mmol/L (21-32); CREATININE 2.2 mg/dL (0.55-1.3); GLUCOSE,RANDOM 110 mg/dL (74-106); POTASSIUM 4.5 mmol/L (3.5-5.1); SGOT/AST 15 U/L (15-37); SGPT/ALT 16 U/L (13-61); SODIUM 128 mmol/L (136-145); TOT PROT 5.9 g/dl (6.4-8.2)
--- NOTE | 2018-04-22 08:57 | CON.CARD ---
Consult Consult Specialty:: Cardiology Referred by:: Dr. Whitaker Reason for Consultation:: To determine need for Clopidogrel - History of Present Illness Chief Complaint: Right knee swelling History of Present Illness: 88F year-old woman with a history of hypertension, diabetes hyperlipidemia, CVA , carotid artery disease ,chronic kidney disease, peptic ulcer disease , cardiomyopathy ,history of NSVT presents to the emergency department with right knee pain. The patient presents with progressive 2 days of right knee pain and swelling, with 1-day difficulty bearing weight and ambulating. The patient reports the symptoms worsened yesterday. Her daughter in the room and mentions that this is the second time that the patient has had this swelling and fluid in the knee joint and also had it aspirated last time. Patient was seen by ortho and the knee joint was aspirated- felt to be due to chronic arthritis not septic joint. Denies recent trauma or injury to the knee, fever, chills, chest pain, SOB, recent falls, LOC, nausea, vomiting. Did have low grade fever in ER. Daughter at bedside. Further hx obtained from daughter: Amanda had a stroke years ago and is on Plavix for this; taken off ASA due to hx of bleeding peptic ulcer. No hx of Coronary or peripheral PCI. 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 sided weakness) Cardio/Vascular: Yes: CAD, CHF (chronic diastolic ), HTN, Hyperlipdemia, Other ( Carotid atheromatous disease) Gastrointestinal: Yes: Peptic Ulcer Disease Renal/: Yes: Renal Inusuff Musculoskeletal: Yes: Osteoarthritis Rheumatology: Yes: Other (OA) Endocrine: Yes: Diabetes Mellitus - Alcohol/Substance Use Hx Alcohol Use: No - Smoking History Smoking history: Never smoked Have you smoked in the past 12 months: No Aproximately how many cigarettes per day: 0 - Social History Usual Living Arrangement: With Child ADL: Independent History of Recent Travel: No Home Medications - Allergies Allergies/Adverse Reactions: Allergies Allergy/AdvReac Type Severity Reaction Status Date / Time No Known Allergies Allergy Verified 04/20/18 12:09 - Home Medications Home Medications: Ambulatory Orders Celecoxib [Celebrex] 200 mg PO BID 04/20/18 Clopidogrel Bisulfate [Plavix] 75 mg PO DAILY 04/20/18 Linagliptin [Tradjenta] 5 mg PO DAILY 04/20/18 Metoprolol Succinate [Toprol Xl] 25 mg PO DAILY 04/20/18 Nifedipine ER [Procardia Xl -] 30 mg PO DAILY 04/20/18 Olmesartan Medoxomil [Benicar] 20 mg PO DAILY 04/20/18 Rosuvastatin [Crestor -] 10 mg PO DAILY 04/20/18 Family Disease History - Family Disease History Family History: Unremarkable (not pertinent to this presentation) Review of Systems Findings/Remarks: see HPI - Review of Systems Constitutional: reports: No Symptoms Eyes: reports: No Symptoms HENT: reports: No Symptoms Neck: reports: No Symptoms Cardiovascular: reports: No Symptoms Respiratory: reports: No Symptoms Gastrointestinal: reports: No Symptoms Genitourinary: reports: No Symptoms Musculoskeletal: reports: Other (right knee swelling and pain) Integumentary: reports: No Symptoms Neurological: reports: No Symptoms Endocrine: reports: No Symptoms Hematology/Lymphatic: reports: No Symptoms Psychiatric: reports: No Symptoms - Risk Factors Known Risk Factors: Yes: Hypercholesterolemia, Hypertension, Prior CA /Emb Stroke, Other Vital Signs: Vital Signs Temperature 98.2 F 04/22/18 06:24 Pulse Rate 86 04/22/18 06:24 Respiratory Rate 20 04/22/18 06:24 Blood Pressure 146/84 04/22/18 06:24 O2 Sat by Pulse Oximetry (%) 98 04/21/18 22:00 Constitutional: Yes: Calm Eyes: Yes: Conjunctiva Clear Respiratory: Yes: CTA Bilaterally (no wheezing or rales.) Gastrointestinal: Yes: Soft JVD: No Carotid Bruit: No PMI: Non-Displaced Heart Sounds: Yes: S1, S2 (RRR, no murmurs) Edema: Yes (right knee effusion) Peripheral Pulses WNL: Yes Neurological: Yes: Alert, Oriented - Other Data Labs, Other Data: CBC, BMP 04/22/18 05:30 04/22/18 05:30 INR, PTT INR 1.14 (0.83-1.09) H 04/20/18 12:26 Microbiology 04/20/18 15:03 Aspirate Gram Stain - Final 04/20/18 15:03 Aspirate Body Fluid Culture - Preliminary NO AEROBIC GROWTH, 24 HRS 04/20/18 12:26 Blood - Peripheral Venous Blood Culture - Preliminary NO GROWTH OBTAINED AFTER 24 HOURS, INCUBATION TO CONTINUE FOR 4 DAYS. 04/20/18 12:26 Blood - Peripheral Venous Blood Culture - Preliminary NO GROWTH OBTAINED AFTER 24 HOURS, INCUBATION TO CONTINUE FOR 4 DAYS. Laboratory Tests 04/20/18 04/20/18 04/20/18 12:26 12:26 12:26 WBC 17.0 H Hgb 14.0 Plt Count 371 ESR 75 H INR 1.14 H Sodium Potassium BUN Creatinine AST ALT Alkaline Phosphatase Synovial Source Synovial WBC Synovial RBC Synovial Neutrophils Synovial Crystals 04/20/18 04/20/18 04/22/18 15:03 15:03 05:30 WBC 11.3 H Hgb 11.6 Plt Count 350 ESR INR Sodium Potassium BUN Creatinine AST ALT Alkaline Phosphatase Synovial Source Synovial Synovial WBC 77571 Synovial RBC 7720 Synovial Neutrophils 85 Synovial Crystals Negative 04/22/18 05:30 WBC Hgb Plt Count ESR INR Sodium 128 L Potassium 4.5 BUN 39 H Creatinine 2.2 H AST 15 ALT 16 Alkaline Phosphatase 85 Synovial Source Synovial WBC Synovial RBC Synovial Neutrophils Synovial Crystals Sinus tach 110bpm, VPC, IVCD Echo: Pending Imaging - Results Chest X-ray: Image Reviewed EKG: Image Reviewed (Mild sinus tach 110bpm; VPC; IVCD.) Problem List - Problems (1) Swelling of knee joint, right Code(s): M25.461 - EFFUSION, RIGHT KNEE (2) History of stroke Code(s): Z86.73 - PRSNL HX OF TIA (TIA), AND CEREB INFRC W/O RESID DEFICITS (3) Carotid artery disease Code(s): I77.9 - DISORDER OF ARTERIES AND ARTERIOLES, UNSPECIFIED Qualifiers: Laterality: unspecified laterality (4) Cardiomyopathy Code(s): I42.9 - CARDIOMYOPATHY, UNSPECIFIED Qualifiers: Cardiomyopathy type: unspecified Qualified Code(s): I42.9 - Cardiomyopathy , unspecified (5) Peptic ulcer disease Code(s): K27.9 - PEPTIC ULC, SITE UNSP, UNSP AC OR CHR, W/O HEMOR OR PERF (6) CKD (chronic kidney disease) Code(s): N18.9 - CHRONIC KIDNEY DISEASE, UNSPECIFIED Qualifiers: Chronic kidney disease stage: stage 3 (moderate) Qualified Code(s): N18.3 - Chronic kidney disease, stage 3 (moderate) (7) Diabetes Code(s): E11.9 - TYPE 2 DIABETES MELLITUS WITHOUT COMPLICATIONS Qualifiers: Diabetes mellitus type: type 2 (8) Hyponatremia Code(s): E87.1 - HYPO-OSMOLALITY AND HYPONATREMIA (9) Platelet inhibition due to Plavix Code(s): Z79.02 - MELTER CASTER (CURRENT) USE OF ANTITHROMBOTICS/ANTIPLATELETS Assessment/Plan IMP: Right knee effusion Prior CVA with hx of carotid disease on Clopidogrel Cardiomyopathy, unspecified CKD Hyponatremia REC: 1. Patient seems to be on Clopidogrel for hx CVA and carotid disease- apparently taken off ASA therapy due to hx of bleeding peptic ulcer. Clopidogrel considered less "irritating" to gastric mucosa when used in conjunction w/ PPI. 2. Add PPI 3. Obtain Carotid US to clarify degree carotid disease 4. Echo to clarify LVEF: there is hx of "cardiomyopathy" in prior office notes. 5. Further w/u and rx of knee effusion as per PMD, ID and ortho. 6. Further w/u hyponatremia as per PMD. Thank you.
[2018-04-22] MEDS ORDERED: cefTRIAXone SODIUM 1 GM VIAL ONE (09:49)
[2018-04-22] MEDS ORDERED: DEXTROSE 5%-WATER - 50 ML IVPB ONE (09:49)
[2018-04-22] MEDS: CELECOXIB 200 MG CAPSULE PO SCH ×2 (09:51→21:21)
[2018-04-22] MEDS: NIFEdipine E.R. 30 MG TABLET (FP) PO SCH (09:51)
[2018-04-22] MEDS: metoPROLOL SUCCINATE 25 MG TAB.SR.24H (FP) PO SCH (09:51)
[2018-04-22] MEDS: CLOPIDOGREL BISULFATE 75 MG TABLET (FP) PO SCH (09:51)
[2018-04-22] MEDS: PANTOPRAZOLE 40 MG TABLET (FP) PO SCH (09:51)
[2018-04-22] MEDS: VALSARTAN 160 MG TABLET (UD) PO SCH (09:51)
[2018-04-22] MEDS: CEFTRIAXONE 1 GM in DEXTROSE 5%-WATER - 50 ML IVPB SCH (09:51)
--- NOTE | 2018-04-22 14:57 | PN ---
Progress Note (short form) - Note Progress Note: Ortho Pt seen and examined- right knee djd s/p aspiration Selected Entries 04/22/18 09:00 Temperature 98.3 F Pulse Rate 90 Respiratory 20 Rate Blood Pressure 158/78 + effusion, + ttp, decr rom, nvi a/p PT eval wbat NSAIDs elevation If no improvement, cortisone inj d/w Dr. Marshall
--- NOTE | 2018-04-22 15:59 | ECHO ---
Name: ELI CIELO Exam:Adult Echocardiogram Study Date: 04/22/2018 10:57 AM Age: 88 yrs Reason For Study: HX Cardiomyopathy, EF Assessment Height: 62 in Weight: 159 lb BSA: 1.7 m2 MMode/2D Measurements & Calculations IVSd: 1.0 cm Ao root diam: 2.2 cm LVIDd: 3.1 cm ACS: 1.9 cm LVIDs: 2.8 cm LVPWd: 1.3 cm EDV(Teich): 36.9 ml LVOT diam: 1.9 cm ESV(Teich): 28.8 ml Procedure The study was technically difficult with many images being suboptimal in quality. Images were not obt ained from all of the standard acoustic windows due to the limited scope of the study. Left Ventricle The left ventricular cavity is small. Left ventricular systolic function is low normal. Due to the po or quality of the echocardiogram, an assessment of left ventricular ejection fraction cannot be made. Right Ventricle The right ventricle is not well visualized. Atria Normal left and right atrial size and function. Mitral Valve There is mild mitral annular calcification. Aortic Valve There is mild to moderate aortic sclerosis.;. Interpretation Summary The study was technically difficult with many images being suboptimal in quality. Images were not obt ained from all of the standard acoustic windows due to the limited scope of the study. The left ventricular cavity is small. Left ventricular systolic function is low normal. Due to the poor quality of the echocardiogram, an assessment of left ventricular ejection fraction ca nnot be made. The right ventricle is not well visualized. There is mild mitral annular calcification. There is mild to moderate aortic sclerosis.; MD Ciara Siddiqui 04/22/2018 03:59 PM
--- NOTE | 2018-04-22 18:02 | PN ---
Progress Note, Physician History of Present Illness: doing well swelling much better daughter in room - Current Medication List Current Medications: Active Medications Celecoxib (Celebrex -) 200 mg PO BID [facility] Last Admin: 04/22/18 09:51 Dose: 200 mg Clopidogrel Bisulfate (Plavix -) 75 mg PO DAILY [facility] Last Admin: 04/22/18 09:51 Dose: 75 mg Heparin Sodium (Porcine) (Heparin -) 5,000 unit SQ TID [facility] Last Admin: 04/22/18 14:27 Dose: 5,000 unit Ceftriaxone Sodium 1 gm/ (Dextrose) 50 mls @ 100 mls/hr IVPB DAILY [facility]; Protocol Last Admin: 04/22/18 09:51 Dose: 100 mls/hr Insulin Aspart (Novolog Vial Sliding Scale -) 1 vial SQ ACHS [facility]; Protocol Last Admin: 04/22/18 16:30 Dose: 2 units Metoprolol Succinate (Toprol Xl -) 25 mg PO DAILY [facility] Last Admin: 04/22/18 09:51 Dose: 25 mg Nifedipine (Procardia Xl -) 30 mg PO DAILY [facility] Last Admin: 04/22/18 09:51 Dose: 30 mg Pantoprazole Sodium (Protonix -) 40 mg PO DAILY [facility] Last Admin: 04/22/18 09:51 Dose: 40 mg Rosuvastatin Calcium (Crestor -) 10 mg PO HS [facility] Last Admin: 04/21/18 21:49 Dose: 10 mg Sitagliptin Phosphate (Januvia -) 25 mg PO DAILY@0700 [facility] Last Admin: 04/22/18 06:00 Dose: 25 mg Valsartan (Diovan -) 160 mg PO DAILY [facility] Last Admin: 04/22/18 09:51 Dose: 160 mg - Objective Vital Signs: Vital Signs Temperature 98.3 F 04/22/18 09:00 Pulse Rate 90 04/22/18 09:00 Respiratory Rate 20 04/22/18 09:00 Blood Pressure 158/78 04/22/18 09:00 O2 Sat by Pulse Oximetry (%) 98 04/21/18 22:00 Constitutional: Yes: No Distress, Calm Cardiovascular: Yes: Regular Rate and Rhythm Respiratory: Yes: Regular, CTA Bilaterally Gastrointestinal: Yes: Normal Bowel Sounds, Soft Musculoskeletal: Yes: Other (rt knee joint swelling) Neurological: Yes: Alert, Oriented Psychiatric: Yes: Alert, Oriented Labs: CBC, BMP 04/22/18 05:30 04/22/18 05:30 INR, PTT INR 1.14 (0.83-1.09) H 04/20/18 12:26 Assessment/Plan Problem List - Problems (1) Swelling of knee joint, right Code(s): M25.461 - EFFUSION, RIGHT KNEE (2) CAD (coronary artery disease) Code(s): I25.10 - ATHSCL HEART DISEASE OF [place] CORONARY ARTERY W/O ANG PCTRS (3) HTN (hypertension) Code(s): I10 - ESSENTIAL (PRIMARY) HYPERTENSION (4) Chronic kidney disease Code(s): N18.9 - CHRONIC KIDNEY DISEASE, UNSPECIFIED Qualifiers: Chronic kidney disease stage: unspecified stage Qualified Code(s): N18.9 - Chronic kidney disease, unspecified (5) Diabetes Code(s): E11.9 - TYPE 2 DIABETES MELLITUS WITHOUT COMPLICATIONS (6) HLD (hyperlipidemia) Code(s): E78.5 - HYPERLIPIDEMIA, UNSPECIFIED (7) Osteoarthritis Code(s): M19.90 - UNSPECIFIED OSTEOARTHRITIS, UNSPECIFIED SITE Qualifiers: Osteoarthritis location: knee Osteoarthritis type: unspecified Laterality : right Qualified Code(s): M17.11 - Unilateral primary osteoarthritis, right knee (8) CHF (congestive heart failure) Code(s): I50.9 - HEART FAILURE, UNSPECIFIED Qualifiers: Heart failure type: unspecified Heart failure chronicity: unspecified Qualified Code(s): I50.9 - Heart failure, unspecified plan continue ceftriaxone wbc decreasing swellig improved rest as per the ortho and the team
--- NOTE | 2018-04-22 20:27 | PN ---
Progress Note, Physician - Current Medication List Current Medications: Active Medications Celecoxib (Celebrex -) 200 mg PO BID [facility] Last Admin: 04/22/18 09:51 Dose: 200 mg Clopidogrel Bisulfate (Plavix -) 75 mg PO DAILY [facility] Last Admin: 04/22/18 09:51 Dose: 75 mg Heparin Sodium (Porcine) (Heparin -) 5,000 unit SQ TID [facility] Last Admin: 04/22/18 14:27 Dose: 5,000 unit Ceftriaxone Sodium 1 gm/ (Dextrose) 50 mls @ 100 mls/hr IVPB DAILY [facility]; Protocol Last Admin: 04/22/18 09:51 Dose: 100 mls/hr Insulin Aspart (Novolog Vial Sliding Scale -) 1 vial SQ ACHS [facility]; Protocol Last Admin: 04/22/18 16:30 Dose: 2 units Metoprolol Succinate (Toprol Xl -) 25 mg PO DAILY [facility] Last Admin: 04/22/18 09:51 Dose: 25 mg Nifedipine (Procardia Xl -) 30 mg PO DAILY [facility] Last Admin: 04/22/18 09:51 Dose: 30 mg Pantoprazole Sodium (Protonix -) 40 mg PO DAILY [facility] Last Admin: 04/22/18 09:51 Dose: 40 mg Rosuvastatin Calcium (Crestor -) 10 mg PO HS [facility] Last Admin: 04/21/18 21:49 Dose: 10 mg Sitagliptin Phosphate (Januvia -) 25 mg PO DAILY@0700 [facility] Last Admin: 04/22/18 06:00 Dose: 25 mg Valsartan (Diovan -) 160 mg PO DAILY [facility] Last Admin: 04/22/18 09:51 Dose: 160 mg - Objective Vital Signs: Vital Signs Temperature 98.3 F 04/22/18 09:00 Pulse Rate 90 04/22/18 09:00 Respiratory Rate 20 04/22/18 09:00 Blood Pressure 158/78 04/22/18 09:00 O2 Sat by Pulse Oximetry (%) 98 04/21/18 22:00 Labs: CBC, BMP 04/22/18 05:30 04/22/18 05:30 INR, PTT INR 1.14 (0.83-1.09) H 04/20/18 12:26 Problem List - Problems (1) Swelling of knee joint, right Code(s): M25.461 - EFFUSION, RIGHT KNEE (2) CAD (coronary artery disease) Code(s): I25.10 - ATHSCL HEART DISEASE OF [place] CORONARY ARTERY W/O ANG PCTRS (3) HTN (hypertension) Code(s): I10 - ESSENTIAL (PRIMARY) HYPERTENSION (4) Chronic kidney disease Code(s): N18.9 - CHRONIC KIDNEY DISEASE, UNSPECIFIED Qualifiers: Chronic kidney disease stage: unspecified stage Qualified Code(s): N18.9 - Chronic kidney disease, unspecified (5) Diabetes Code(s): E11.9 - TYPE 2 DIABETES MELLITUS WITHOUT COMPLICATIONS Qualifiers: Diabetes mellitus type: type 2 (6) HLD (hyperlipidemia) Code(s): E78.5 - HYPERLIPIDEMIA, UNSPECIFIED (7) Osteoarthritis Code(s): M19.90 - UNSPECIFIED OSTEOARTHRITIS, UNSPECIFIED SITE Qualifiers: Osteoarthritis location: knee Osteoarthritis type: unspecified Laterality : right Qualified Code(s): M17.11 - Unilateral primary osteoarthritis, right knee (8) CHF (congestive heart failure) Code(s): I50.9 - HEART FAILURE, UNSPECIFIED Qualifiers: Heart failure type: unspecified Heart failure chronicity: unspecified Qualified Code(s): I50.9 - Heart failure, unspecified
[2018-04-22] MEDS: ROSUVASTATIN CA 10 MG TABLET (FP) PO SCH (21:21)
[2018-04-23] MEDS: HEPARIN NA (PORCINE) 5,000 UNITS/ML 1ML VIAL SQ SCH ×3 (06:01→22:03)
[2018-04-23] MEDS: sitaGLIPtin PHOSPHATE 25 MG TABLET (FP) PO SCH (06:01)
[2018-04-23] MEDS: INSULIN SLIDING SCALE (NOVOLOG) 1 VIAL SQ SCH ×4 (06:01→22:08)
--- NOTE | 2018-04-23 09:06 | PN ---
Progress Note, Physician Chief Complaint: feeling well - Current Medication List Current Medications: Active Medications Celecoxib (Celebrex -) 200 mg PO BID [facility] Last Admin: 04/22/18 21:21 Dose: 200 mg Clopidogrel Bisulfate (Plavix -) 75 mg PO DAILY [facility] Last Admin: 04/22/18 09:51 Dose: 75 mg Heparin Sodium (Porcine) (Heparin -) 5,000 unit SQ TID [facility] Last Admin: 04/23/18 06:01 Dose: 5,000 unit Ceftriaxone Sodium 1 gm/ (Dextrose) 50 mls @ 100 mls/hr IVPB DAILY [facility]; Protocol Last Admin: 04/22/18 09:51 Dose: 100 mls/hr Insulin Aspart (Novolog Vial Sliding Scale -) 1 vial SQ ACHS [facility]; Protocol Last Admin: 04/23/18 06:01 Dose: Not Given Metoprolol Succinate (Toprol Xl -) 25 mg PO DAILY [facility] Last Admin: 04/22/18 09:51 Dose: 25 mg Nifedipine (Procardia Xl -) 30 mg PO DAILY [facility] Last Admin: 04/22/18 09:51 Dose: 30 mg Pantoprazole Sodium (Protonix -) 40 mg PO DAILY [facility] Last Admin: 04/22/18 09:51 Dose: 40 mg Rosuvastatin Calcium (Crestor -) 10 mg PO HS [facility] Last Admin: 04/22/18 21:21 Dose: 10 mg Sitagliptin Phosphate (Januvia -) 25 mg PO DAILY@0700 [facility] Last Admin: 04/23/18 06:01 Dose: 25 mg Valsartan (Diovan -) 160 mg PO DAILY [facility] Last Admin: 04/22/18 09:51 Dose: 160 mg - Objective Vital Signs: Vital Signs Temperature 98.6 F 04/23/18 07:02 Pulse Rate 84 04/23/18 07:02 Respiratory Rate 20 04/23/18 07:02 Blood Pressure 148/90 04/23/18 07:02 O2 Sat by Pulse Oximetry (%) 97 04/22/18 21:00 Constitutional: Yes: No Distress, Calm Cardiovascular: Yes: Regular Rate and Rhythm Respiratory: Yes: CTA Bilaterally Gastrointestinal: Yes: Soft Edema: No Neurological: Yes: Alert, Oriented ...Motor Strength: WNL Labs: CBC, BMP 04/22/18 05:30 04/22/18 05:30 INR, PTT INR 1.14 (0.83-1.09) H 04/20/18 12:26 Problem List - Problems (1) Swelling of knee joint, right Code(s): M25.461 - EFFUSION, RIGHT KNEE (2) History of stroke Code(s): Z86.73 - PRSNL HX OF TIA (TIA), AND CEREB INFRC W/O RESID DEFICITS (3) Carotid artery disease Code(s): I77.9 - DISORDER OF ARTERIES AND ARTERIOLES, UNSPECIFIED Qualifiers: Laterality: unspecified laterality (4) Cardiomyopathy Code(s): I42.9 - CARDIOMYOPATHY, UNSPECIFIED Qualifiers: Cardiomyopathy type: unspecified Qualified Code(s): I42.9 - Cardiomyopathy , unspecified (5) Peptic ulcer disease Code(s): K27.9 - PEPTIC ULC, SITE UNSP, UNSP AC OR CHR, W/O HEMOR OR PERF (6) CKD (chronic kidney disease) Code(s): N18.9 - CHRONIC KIDNEY DISEASE, UNSPECIFIED Qualifiers: Chronic kidney disease stage: stage 3 (moderate) Qualified Code(s): N18.3 - Chronic kidney disease, stage 3 (moderate) (7) Diabetes Code(s): E11.9 - TYPE 2 DIABETES MELLITUS WITHOUT COMPLICATIONS Qualifiers: Diabetes mellitus type: type 2 (8) Hyponatremia Code(s): E87.1 - HYPO-OSMOLALITY AND HYPONATREMIA (9) Platelet inhibition due to Plavix Code(s): Z79.02 - SENIOR LIVING (CURRENT) USE OF ANTITHROMBOTICS/ANTIPLATELETS Assessment/Plan IMP: Right knee effusion Prior CVA with hx of carotid disease on Clopidogrel Cardiomyopathy, unspecified CKD Hyponatremia REC: 1. Patient seems to be on Clopidogrel for hx CVA and carotid disease- apparently taken off ASA therapy due to hx of bleeding peptic ulcer. Clopidogrel considered less "irritating" to gastric mucosa when used in conjunction w/ PPI. 2. Add PPI 3. Carotid US mild disease/plaque 4. Echo TDS, low normal/mildly reduced LV function- outpatient f/u. On ARB- will need to follow renal fxn. 5. Further w/u and rx of knee effusion as per PMD, ID and ortho. 6. Further w/u hyponatremia as per PMD.
--- NOTE | 2018-04-23 09:22 | CON.NEP ---
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 (Residual rt sided weakness) Cardio/Vascular: Yes: CAD, CHF (chronic diastolic ), HTN, Hyperlipdemia, Other ( Carotid atheromatous disease) Gastrointestinal: Yes: Peptic Ulcer Disease Renal/: Yes: Renal Inusuff Musculoskeletal: Yes: Osteoarthritis Rheumatology: Yes: Other (OA) Endocrine: Yes: Diabetes Mellitus - Alcohol/Substance Use Hx Alcohol Use: No - Smoking History Smoking history: Never smoked Have you smoked in the past 12 months: No Aproximately how many cigarettes per day: 0 - Social History Usual Living Arrangement: With Child ADL: Independent History of Recent Travel: No Home Medications - Allergies Allergies/Adverse Reactions: Allergies Allergy/AdvReac Type Severity Reaction Status Date / Time No Known Allergies Allergy Verified 04/20/18 12:09 - Home Medications Home Medications: Ambulatory Orders Celecoxib [Celebrex] 200 mg PO BID 04/20/18 Clopidogrel Bisulfate [Plavix] 75 mg PO DAILY 04/20/18 Linagliptin [Tradjenta] 5 mg PO DAILY 04/20/18 Metoprolol Succinate [Toprol Xl] 25 mg PO DAILY 04/20/18 Nifedipine ER [Procardia Xl -] 30 mg PO DAILY 04/20/18 Olmesartan Medoxomil [Benicar] 20 mg PO DAILY 04/20/18 Rosuvastatin [Crestor -] 10 mg PO DAILY 04/20/18 Review of Systems Unable to obtain ROS, reason: rt knee pain Nephrology Consult - Height Height: 5 ft 2 in - Weight Weight: 159 lb - BMI Body Mass Index (BMI): 29.0 - Lab Results CBC,BMP: CBC, BMP 04/22/18 05:30 04/22/18 05:30 Anion Gap: Anion Gap Anion Gap 7 MMOL/L (8-16) L 04/22/18 05:30 - Physical Examination Vital Signs: Vital Signs Temperature 98.6 F 04/23/18 07:02 Pulse Rate 84 04/23/18 07:02 Respiratory Rate 20 04/23/18 07:02 Blood Pressure 148/90 04/23/18 07:02 O2 Sat by Pulse Oximetry (%) 97 04/22/18 21:00 Extremities: Yes: Other (rt knee effusion tender) Edema: No Assessment/Plan 88 with DM HTn EF mildly reduced on trajenta at home Check A1c Cr 2 CrCl 22 stage 4 CKD Sono normal sized kidneys no hydro Suggest avoid celebrex for more than a week May need a Intraarticular steroid shot so can weight bear Message sent to DR Marshall [facility] HTN BP is well controlled Check UA H/o proteinurea Na 128 Eats ok as per nurse Check TSH 8 am cortisol Fluid restrict to 1500 cc a day case d/w nurse Pt will need close out pt fup at discharge
[2018-04-23] MEDS ORDERED: methylPREDNISolone ACET (DEPO) 80 MG/1 ML VIAL IAR ONE (09:50)
[2018-04-23] MEDS ORDERED: PT OWN MED DRAWER 7, Y5N ONE ×2 (10:00→21:26)
[2018-04-23] MEDS ORDERED: cefTRIAXone SODIUM 1 GM VIAL ONE (10:01)
[2018-04-23] MEDS ORDERED: DEXTROSE 5%-WATER - 50 ML IVPB ONE (10:01)
[2018-04-23] MEDS: metoPROLOL SUCCINATE 25 MG TAB.SR.24H (FP) PO SCH (10:03)
[2018-04-23] MEDS: CEFTRIAXONE 1 GM in DEXTROSE 5%-WATER - 50 ML IVPB SCH (10:03)
[2018-04-23] MEDS: NIFEdipine E.R. 30 MG TABLET (FP) PO SCH (10:03)
[2018-04-23] MEDS: CLOPIDOGREL BISULFATE 75 MG TABLET (FP) PO SCH (10:03)
[2018-04-23] MEDS: PANTOPRAZOLE 40 MG TABLET (FP) PO SCH (10:03)
[2018-04-23] MEDS: CELECOXIB 200 MG CAPSULE PO SCH ×2 (10:03→22:03)
[2018-04-23] MEDS: VALSARTAN 160 MG TABLET (UD) PO SCH (10:03)
--- NOTE | 2018-04-23 10:28 | PN ---
Progress Note (short form) - Note Progress Note: STILL C/O SIGNIFICANT PAIN R KNEE DEPOMEDROL ORDRED TO FLOOR FOR INTRAARTICULAR INJECTION
[2018-04-23] MEDS ORDERED: LIDOCAINE HCL 1%, 10 MG/ML (20ML VIAL) ONE (13:05)
--- NOTE | 2018-04-23 13:18 | PROC ---
Arthrocentesis - Arthrocentesis Indication: Steriod Injection Arthrocentesis Site: right: knee Skin prep: Betadine Drainage, Color/Appearance: Serous Tube Drainage(ml): 70 Joint Injection of: Depo Medrol, Lidocaine 1% Remarks: consent obtained, time-out performed, right knee aspirated under sterile technique, aspiration/injection tolerated well
--- NOTE | 2018-04-23 14:06 | PN ---
Progress Note, Physician History of Present Illness: knee joint aspirated again injected with steroids comfortable - Current Medication List Current Medications: Active Medications Celecoxib (Celebrex -) 200 mg PO BID [facility] Last Admin: 04/23/18 10:03 Dose: 200 mg Clopidogrel Bisulfate (Plavix -) 75 mg PO DAILY [facility] Last Admin: 04/23/18 10:03 Dose: 75 mg Heparin Sodium (Porcine) (Heparin -) 5,000 unit SQ TID [facility] Last Admin: 04/23/18 06:01 Dose: 5,000 unit Ceftriaxone Sodium 1 gm/ (Dextrose) 50 mls @ 100 mls/hr IVPB DAILY [facility]; Protocol Last Admin: 04/23/18 10:03 Dose: 100 mls/hr Insulin Aspart (Novolog Vial Sliding Scale -) 1 vial SQ ACHS [facility]; Protocol Last Admin: 04/23/18 12:10 Dose: 2 units Metoprolol Succinate (Toprol Xl -) 25 mg PO DAILY [facility] Last Admin: 04/23/18 10:03 Dose: 25 mg Nifedipine (Procardia Xl -) 30 mg PO DAILY [facility] Last Admin: 04/23/18 10:03 Dose: 30 mg Pantoprazole Sodium (Protonix -) 40 mg PO DAILY [facility] Last Admin: 04/23/18 10:03 Dose: 40 mg Rosuvastatin Calcium (Crestor -) 10 mg PO HS [facility] Last Admin: 04/22/18 21:21 Dose: 10 mg Sitagliptin Phosphate (Januvia -) 25 mg PO DAILY@0700 [facility] Last Admin: 04/23/18 06:01 Dose: 25 mg Valsartan (Diovan -) 160 mg PO DAILY [facility] Last Admin: 04/23/18 10:03 Dose: 160 mg - Objective Vital Signs: Vital Signs Temperature 98.6 F 04/23/18 07:02 Pulse Rate 84 04/23/18 07:02 Respiratory Rate 20 04/23/18 07:02 Blood Pressure 148/90 04/23/18 07:02 O2 Sat by Pulse Oximetry (%) 95 04/23/18 10:00 Constitutional: Yes: No Distress, Calm Cardiovascular: Yes: Regular Rate and Rhythm Respiratory: Yes: Regular, CTA Bilaterally Gastrointestinal: Yes: Normal Bowel Sounds, Soft Musculoskeletal: Yes: WNL Extremities: Yes: Other Integumentary: Yes: Erythema (improved) Neurological: Yes: Alert, Oriented Psychiatric: Yes: Alert, Oriented Labs: CBC, BMP 04/22/18 05:30 04/22/18 05:30 INR, PTT INR 1.14 (0.83-1.09) H 04/20/18 12:26 Assessment/Plan Problem List - Problems (1) Swelling of knee joint, right Code(s): M25.461 - EFFUSION, RIGHT KNEE (2) CAD (coronary artery disease) Code(s): I25.10 - ATHSCL HEART DISEASE OF [place] CORONARY ARTERY W/O ANG PCTRS (3) HTN (hypertension) Code(s): I10 - ESSENTIAL (PRIMARY) HYPERTENSION (4) Chronic kidney disease Code(s): N18.9 - CHRONIC KIDNEY DISEASE, UNSPECIFIED Qualifiers: Chronic kidney disease stage: unspecified stage Qualified Code(s): N18.9 - Chronic kidney disease, unspecified (5) Diabetes Code(s): E11.9 - TYPE 2 DIABETES MELLITUS WITHOUT COMPLICATIONS (6) HLD (hyperlipidemia) Code(s): E78.5 - HYPERLIPIDEMIA, UNSPECIFIED (7) Osteoarthritis Code(s): M19.90 - UNSPECIFIED OSTEOARTHRITIS, UNSPECIFIED SITE Qualifiers: Osteoarthritis location: knee Osteoarthritis type: unspecified Laterality : right Qualified Code(s): M17.11 - Unilateral primary osteoarthritis, right knee (8) CHF (congestive heart failure) Code(s): I50.9 - HEART FAILURE, UNSPECIFIED Qualifiers: Heart failure type: unspecified Heart failure chronicity: unspecified Qualified Code(s): I50.9 - Heart failure, unspecified plan continue ceftriaxone wbc decreasing probably will deescalte abx tomorrow rest as per the team
[2018-04-23 17:46] LABS: URINE APPEARANCE SLCLOUDY; URINE BILIRUBIN NEGATIVE (<2.0 mg/dL); URINE COLOR STRAW; URINE GLUCOSE (UA) 1+ (NEGATIVE); URINE KETONE NEGATIVE (NEGATIVE); URINE LEUK ESTERASE NEGATIVE (NEGATIVE); URINE NITRITE NEGATIVE (NEGATIVE); URINE PROTEIN 2+ (NEGATIVE); URINE UROBILINOGEN NEGATIVE mg/dL (0.2-1.0)
[2018-04-23 17:54] LABS: EPI CELLS RARE /HPF (FEW)
--- NOTE | 2018-04-23 18:19 | PN ---
Progress Note (short form) - Note Progress Note: Patient seen and examined- still complains of pain on flexion of RLE and weight bearing. Screams out in pain with palpation and flexion of knee. No fever/chills/erythema/nausea/vomiting. Afebrile/Hemodynamically Stable Last Vital Signs Temp Pulse Resp BP Pulse Ox 97.9 F 90 20 147/83 95 04/23/18 10:00 04/23/18 10:00 04/23/18 10:00 04/23/18 10:00 04/23/18 10:00 HEENT -Atraumatic, Normocephalic. No pharyngeal erythema/exudate Heart - S1, S2, RRR Lungs - clear to auscultation Abdomen - soft, non-tender. Bowel Sounds normal. Extremities - R knee swelling/tenderness/decreased ROM due to pain. No calf tenderness. Laboratory Results - last 24 hr 04/22/18 04/23/18 04/23/18 21:20 05:57 10:30 POC Glucometer 165 116 163 Urine Color Urine Appearance Urine pH Ur Specific [place] Urine Protein Urine Glucose (UA) Urine Ketones Urine Blood Urine Nitrite Urine Bilirubin Urine Urobilinogen Ur Leukocyte Esterase Urine WBC (Auto) Urine RBC (Auto) Ur Epithelial Cells 04/23/18 04/23/18 15:00 16:47 POC Glucometer 142 Urine Color Straw Urine Appearance Slcloudy Urine pH 6.0 Ur Specific [place] 1.010 Urine Protein 2+ H Urine Glucose (UA) 1+ H Urine Ketones Negative Urine Blood Negative Urine Nitrite Negative Urine Bilirubin Negative Urine Urobilinogen Negative Ur Leukocyte Esterase Negative Urine WBC (Auto) 2 Urine RBC (Auto) 12 Ur Epithelial Cells Rare Current Medications Generic Name Dose Route Start Last Admin Trade Name Freq PRN Reason Stop Dose Admin Celecoxib 200 mg 04/21/18 10:00 04/23/18 10:03 Celebrex - PO 200 mg BID [facility] Administration Clopidogrel Bisulfate 75 mg 04/21/18 10:00 04/23/18 10:03 Plavix - PO 75 mg DAILY [facility] Administration Heparin Sodium (Porcine) 5,000 unit 04/20/18 22:30 04/23/18 14:10 Heparin - SQ 5,000 unit TID [facility] Administration Ceftriaxone Sodium 1 gm/ 50 mls @ 100 mls/hr 04/21/18 11:50 04/23/18 10:03 Dextrose IVPB 100 mls/hr DAILY [facility] Administration Protocol Insulin Aspart 1 vial 04/21/18 07:00 04/23/18 16:49 Novolog Vial Sliding Scale - SQ Not Given ACHS [facility] Protocol Metoprolol Succinate 25 mg 04/21/18 10:00 04/23/18 10:03 Toprol Xl - PO 25 mg DAILY [facility] Administration Nifedipine 30 mg 04/21/18 10:00 04/23/18 10:03 Procardia Xl - PO 30 mg DAILY [facility] Administration Pantoprazole Sodium 40 mg 04/22/18 10:00 04/23/18 10:03 Protonix - PO 40 mg DAILY [facility] Administration Rosuvastatin Calcium 10 mg 04/21/18 22:00 04/22/18 21:21 Crestor - PO 10 mg HS [facility] Administration Sitagliptin Phosphate 25 mg 04/21/18 07:00 04/23/18 06:01 Januvia - PO 25 mg DAILY@0700 [facility] Administration Valsartan 160 mg 04/21/18 10:00 04/23/18 10:03 Diovan - PO 160 mg DAILY [facility] Administration ASSESSMENT/PLAN 88 year old female with DM 2, HTN, Chronic Diastolic CHF, Cerebrovascular Disease, PUD, CKD, Hyponatremia, admitted with R knee swelling/tenderness/pain/ inability to weight bear. 1. R knee swelling - acute No erythema/fever/chills Aspirate s/p Arthrocentesis - negative Culture Empirically on Ceftriaxone - ID following. Underwent further arthrocentesis and Steroid injection 04/23 Will request PT 2. CKD 4 - Stable. Renal US normal. 3. Hyponatremia, appears chronic. Nephrology evaluated - continue fluid restriction. Further work up as per Nephrology. 4. HTN - Controlled on Diovan, Procardia, Metoprolol 5. CVD with some Carotid artery deposits but not hemodynamically significant - on clopidogrel and crestor. 6. DM 2 - On Januvia, SSI. DVT Px - Heparin SQ GI Px - Protonix Visit type - Emergency Visit Emergency Visit: Yes ED Registration Date: 04/20/18 Care time: The patient presented to the Emergency Department on the above date and was hospitalized for further evaluation of their emergent condition. - New Patient This patient is new to me today: Yes Date on this admission: 04/23/18 - Critical Care Critical Care patient: No - Discharge Referral Referred to [facility] Med P.C.: No
[2018-04-23] MEDS: ROSUVASTATIN CA 10 MG TABLET (FP) PO SCH (22:03)
[2018-04-24] MEDS: HEPARIN NA (PORCINE) 5,000 UNITS/ML 1ML VIAL SQ SCH ×3 (06:20→22:05)
[2018-04-24] MEDS: sitaGLIPtin PHOSPHATE 25 MG TABLET (FP) PO SCH (06:23)
[2018-04-24] MEDS: INSULIN SLIDING SCALE (NOVOLOG) 1 VIAL SQ SCH ×4 (06:24→22:05)
[2018-04-24] MEDS: CELECOXIB 200 MG CAPSULE PO SCH ×2 (10:00→22:06)
[2018-04-24] MEDS ORDERED: DEXTROSE 5%-WATER - 50 ML IVPB ONE (10:43)
[2018-04-24] MEDS ORDERED: cefTRIAXone SODIUM 1 GM VIAL ONE (10:43)
[2018-04-24] MEDS: NIFEdipine E.R. 30 MG TABLET (FP) PO SCH (10:48)
[2018-04-24] MEDS: metoPROLOL SUCCINATE 25 MG TAB.SR.24H (FP) PO SCH (10:48)
[2018-04-24] MEDS: VALSARTAN 160 MG TABLET (UD) PO SCH (10:48)
[2018-04-24] MEDS: PANTOPRAZOLE 40 MG TABLET (FP) PO SCH (10:48)
[2018-04-24] MEDS: CLOPIDOGREL BISULFATE 75 MG TABLET (FP) PO SCH (10:49)
[2018-04-24] MEDS: CEFTRIAXONE 1 GM in DEXTROSE 5%-WATER - 50 ML IVPB SCH (10:49)
--- NOTE | 2018-04-24 14:11 | PN ---
Progress Note, Physician History of Present Illness: stable doing well no issues - Current Medication List Current Medications: Active Medications Celecoxib (Celebrex -) 200 mg PO BID [facility] Last Admin: 04/24/18 10:00 Dose: Not Given Clopidogrel Bisulfate (Plavix -) 75 mg PO DAILY [facility] Last Admin: 04/24/18 10:49 Dose: 75 mg Heparin Sodium (Porcine) (Heparin -) 5,000 unit SQ TID [facility] Last Admin: 04/24/18 14:06 Dose: 5,000 unit Ceftriaxone Sodium 1 gm/ (Dextrose) 50 mls @ 100 mls/hr IVPB DAILY [facility]; Protocol Last Admin: 04/24/18 10:49 Dose: 100 mls/hr Insulin Aspart (Novolog Vial Sliding Scale -) 1 vial SQ ACHS [facility]; Protocol Last Admin: 04/24/18 12:00 Dose: Not Given Metoprolol Succinate (Toprol Xl -) 25 mg PO DAILY [facility] Last Admin: 04/24/18 10:48 Dose: 25 mg Nifedipine (Procardia Xl -) 30 mg PO DAILY [facility] Last Admin: 04/24/18 10:48 Dose: 30 mg Pantoprazole Sodium (Protonix -) 40 mg PO DAILY [facility] Last Admin: 04/24/18 10:48 Dose: 40 mg Rosuvastatin Calcium (Crestor -) 10 mg PO HS [facility] Last Admin: 04/23/18 22:03 Dose: 10 mg Sitagliptin Phosphate (Januvia -) 25 mg PO DAILY@0700 [facility] Last Admin: 04/24/18 06:23 Dose: 25 mg Valsartan (Diovan -) 160 mg PO DAILY [facility] Last Admin: 04/24/18 10:48 Dose: 160 mg - Objective Vital Signs: Vital Signs Temperature 98.6 F 04/24/18 07:10 Pulse Rate 84 04/24/18 07:10 Respiratory Rate 20 04/24/18 07:10 Blood Pressure 146/84 04/24/18 07:10 O2 Sat by Pulse Oximetry (%) 95 04/23/18 21:00 Constitutional: Yes: No Distress, Calm Cardiovascular: Yes: Regular Rate and Rhythm Respiratory: Yes: Regular, CTA Bilaterally Gastrointestinal: Yes: Normal Bowel Sounds, Soft Musculoskeletal: Yes: WNL Extremities: Yes: Other Neurological: Yes: Alert, Oriented Psychiatric: Yes: Alert, Oriented Labs: CBC, BMP 04/22/18 05:30 04/22/18 05:30 INR, PTT INR 1.14 (0.83-1.09) H 04/20/18 12:26 Assessment/Plan Problem List - Problems (1) Swelling of knee joint, right Code(s): M25.461 - EFFUSION, RIGHT KNEE (2) CAD (coronary artery disease) Code(s): I25.10 - ATHSCL HEART DISEASE OF [place] CORONARY ARTERY W/O ANG PCTRS (3) HTN (hypertension) Code(s): I10 - ESSENTIAL (PRIMARY) HYPERTENSION (4) Chronic kidney disease Code(s): N18.9 - CHRONIC KIDNEY DISEASE, UNSPECIFIED Qualifiers: Chronic kidney disease stage: unspecified stage Qualified Code(s): N18.9 - Chronic kidney disease, unspecified (5) Diabetes Code(s): E11.9 - TYPE 2 DIABETES [place]LL[place] WITHOUT COMPLICATIONS (6) HLD (hyperlipidemia) Code(s): E78.5 - HYPERLIPIDEMIA, UNSPECIFIED (7) Osteoarthritis Code(s): M19.90 - UNSPECIFIED OSTEOARTHRITIS, UNSPECIFIED SITE Qualifiers: Osteoarthritis location: knee Osteoarthritis type: unspecified Laterality : right Qualified Code(s): M17.11 - Unilateral primary osteoarthritis, right knee (8) CHF (congestive heart failure) Code(s): I50.9 - HEART FAILURE, UNSPECIFIED Qualifiers: Heart failure type: unspecified Heart failure chronicity: unspecified Qualified Code(s): I50.9 - Heart failure, unspecified plan can change to augmentin 500 mg po bid for 3 more days leg looks much better
[2018-04-24] MEDS ORDERED: INSULIN (NOVOLOG) ASPART 100 UNITS/ML 10ML VIAL ONE (21:35)
[2018-04-24] MEDS ORDERED: PT OWN MED DRAWER 7, Y5N ONE (21:35)
[2018-04-24] MEDS: ROSUVASTATIN CA 10 MG TABLET (FP) PO SCH (22:05)
--- NOTE | 2018-04-24 23:50 | PN ---
Progress Note, Physician - Current Medication List Current Medications: Active Medications Celecoxib (Celebrex -) 200 mg PO BID [facility] Last Admin: 04/24/18 22:06 Dose: Not Given Clopidogrel Bisulfate (Plavix -) 75 mg PO DAILY [facility] Last Admin: 04/24/18 10:49 Dose: 75 mg Heparin Sodium (Porcine) (Heparin -) 5,000 unit SQ TID [facility] Last Admin: 04/24/18 22:05 Dose: 5,000 unit Ceftriaxone Sodium 1 gm/ (Dextrose) 50 mls @ 100 mls/hr IVPB DAILY [facility]; Protocol Last Admin: 04/24/18 10:49 Dose: 100 mls/hr Insulin Aspart (Novolog Vial Sliding Scale -) 1 vial SQ ACHS [facility]; Protocol Last Admin: 04/24/18 22:05 Dose: 2 units Metoprolol Succinate (Toprol Xl -) 25 mg PO DAILY [facility] Last Admin: 04/24/18 10:48 Dose: 25 mg Nifedipine (Procardia Xl -) 30 mg PO DAILY [facility] Last Admin: 04/24/18 10:48 Dose: 30 mg Pantoprazole Sodium (Protonix -) 40 mg PO DAILY [facility] Last Admin: 04/24/18 10:48 Dose: 40 mg Rosuvastatin Calcium (Crestor -) 10 mg PO HS [facility] Last Admin: 04/24/18 22:05 Dose: 10 mg Sitagliptin Phosphate (Januvia -) 25 mg PO DAILY@0700 [facility] Last Admin: 04/24/18 06:23 Dose: 25 mg Valsartan (Diovan -) 160 mg PO DAILY [facility] Last Admin: 04/24/18 10:48 Dose: 160 mg - Objective Vital Signs: Vital Signs Temperature 98.6 F 04/24/18 23:23 Pulse Rate 88 04/24/18 23:23 Respiratory Rate 20 04/24/18 23:23 Blood Pressure 162/91 04/24/18 23:23 O2 Sat by Pulse Oximetry (%) 95 04/24/18 21:00 Labs: CBC, BMP 04/22/18 05:30 04/22/18 05:30 INR, PTT INR 1.14 (0.83-1.09) H 04/20/18 12:26 Problem List - Problems (1) Swelling of knee joint, right Code(s): M25.461 - EFFUSION, RIGHT KNEE (2) CAD (coronary artery disease) Code(s): I25.10 - ATHSCL HEART DISEASE OF [place] CORONARY ARTERY W/O ANG PCTRS (3) HTN (hypertension) Code(s): I10 - ESSENTIAL (PRIMARY) HYPERTENSION (4) Chronic kidney disease Code(s): N18.9 - CHRONIC KIDNEY DISEASE, UNSPECIFIED Qualifiers: Chronic kidney disease stage: unspecified stage Qualified Code(s): N18.9 - Chronic kidney disease, unspecified (5) Diabetes Code(s): E11.9 - TYPE 2 DIABETES MELLITUS WITHOUT COMPLICATIONS Qualifiers: Diabetes mellitus type: type 2 (6) HLD (hyperlipidemia) Code(s): E78.5 - HYPERLIPIDEMIA, UNSPECIFIED (7) Osteoarthritis Code(s): M19.90 - UNSPECIFIED OSTEOARTHRITIS, UNSPECIFIED SITE Qualifiers: Osteoarthritis location: knee Osteoarthritis type: unspecified Laterality : right Qualified Code(s): M17.11 - Unilateral primary osteoarthritis, right knee (8) CHF (congestive heart failure) Code(s): I50.9 - HEART FAILURE, UNSPECIFIED Qualifiers: Heart failure type: unspecified Heart failure chronicity: unspecified Qualified Code(s): I50.9 - Heart failure, unspecified
[2018-04-25] MEDS: INSULIN SLIDING SCALE (NOVOLOG) 1 VIAL SQ SCH ×4 (06:02→21:48)
[2018-04-25] MEDS: sitaGLIPtin PHOSPHATE 25 MG TABLET (FP) PO SCH (06:02)
[2018-04-25] MEDS: HEPARIN NA (PORCINE) 5,000 UNITS/ML 1ML VIAL SQ SCH ×3 (06:02→21:48)
[2018-04-25] MEDS: metoPROLOL SUCCINATE 25 MG TAB.SR.24H (FP) PO SCH (08:39)
[2018-04-25] MEDS: AMOX TR/POT CLAV 875MG/125MG TABLETS (FP) PO SCH (08:39)
[2018-04-25] MEDS: CLOPIDOGREL BISULFATE 75 MG TABLET (FP) PO SCH (08:39)
[2018-04-25] MEDS: PANTOPRAZOLE 40 MG TABLET (FP) PO SCH (08:39)
[2018-04-25] MEDS: NIFEdipine E.R. 30 MG TABLET (FP) PO SCH (08:40)
[2018-04-25] MEDS: VALSARTAN 160 MG TABLET (UD) PO SCH (08:43)
--- NOTE | 2018-04-25 10:01 | PN ---
Progress Note (short form) - Note Progress Note: Ortho Pt seen and examined- improving Selected Entries 04/24/18 04/25/18 23:23 06:00 Temperature 98.2 F Pulse Rate 84 Respiratory 20 Rate Blood Pressure 145/74 decr pain ,incr rom nvi a/p PT wbat NSAIDs elevation ok to d/c from ortho pov d/w Dr. Marshall
--- NOTE | 2018-04-25 14:25 | PN ---
Progress Note, Physician History of Present Illness: patient stable events noted from yesterday bp stabilized now - Current Medication List Current Medications: Active Medications Amoxicillin/Clavulanate Potassium (Augmentin - 875mg Tablet) 1 tab PO BID@0800, 1730 [facility] Last Admin: 04/25/18 08:39 Dose: 1 tab Clopidogrel Bisulfate (Plavix -) 75 mg PO DAILY [facility] Last Admin: 04/25/18 08:39 Dose: 75 mg Heparin Sodium (Porcine) (Heparin -) 5,000 unit SQ TID [facility] Last Admin: 04/25/18 06:02 Dose: 5,000 unit Insulin Aspart (Novolog Vial Sliding Scale -) 1 vial SQ ACHS [facility]; Protocol Last Admin: 04/25/18 11:30 Dose: Not Given Metoprolol Succinate (Toprol Xl -) 25 mg PO DAILY [facility] Last Admin: 04/25/18 08:39 Dose: 25 mg Nifedipine (Procardia Xl -) 30 mg PO DAILY [facility] Last Admin: 04/25/18 08:40 Dose: 30 mg Pantoprazole Sodium (Protonix -) 40 mg PO DAILY [facility] Last Admin: 04/25/18 08:39 Dose: 40 mg Rosuvastatin Calcium (Crestor -) 10 mg PO HS [facility] Last Admin: 04/24/18 22:05 Dose: 10 mg Sitagliptin Phosphate (Januvia -) 25 mg PO DAILY@0700 [facility] Last Admin: 04/25/18 06:02 Dose: 25 mg Valsartan (Diovan -) 160 mg PO DAILY [facility] Last Admin: 04/25/18 08:43 Dose: 160 mg - Objective Vital Signs: Vital Signs Temperature 98.2 F 04/25/18 06:00 Pulse Rate 84 04/25/18 06:00 Respiratory Rate 20 04/24/18 23:23 Blood Pressure 151/116 H 04/25/18 10:53 O2 Sat by Pulse Oximetry (%) 95 04/24/18 21:00 Constitutional: Yes: No Distress, Calm Cardiovascular: Yes: S1, S2 Respiratory: Yes: Regular, CTA Bilaterally Gastrointestinal: Yes: Normal Bowel Sounds, Soft Musculoskeletal: Yes: WNL Extremities: Yes: Other Neurological: Yes: Alert, Oriented Psychiatric: Yes: Alert, Oriented Labs: CBC, BMP 04/22/18 05:30 04/22/18 05:30 INR, PTT INR 1.14 (0.83-1.09) H 04/20/18 12:26 Assessment/Plan Problem List - Problems (1) Swelling of knee joint, right Code(s): M25.461 - EFFUSION, RIGHT KNEE (2) CAD (coronary artery disease) Code(s): I25.10 - ATHSCL HEART DISEASE OF [place] CORONARY ARTERY W/O ANG PCTRS (3) HTN (hypertension) Code(s): I10 - ESSENTIAL (PRIMARY) HYPERTENSION (4) Chronic kidney disease Code(s): N18.9 - CHRONIC KIDNEY DISEASE, UNSPECIFIED Qualifiers: Chronic kidney disease stage: unspecified stage Qualified Code(s): N18.9 - Chronic kidney disease, unspecified (5) Diabetes Code(s): E11.9 - TYPE 2 DIABETES MELLITUS WITHOUT COMPLICATIONS (6) HLD (hyperlipidemia) Code(s): E78.5 - HYPERLIPIDEMIA, UNSPECIFIED (7) Osteoarthritis Code(s): M19.90 - UNSPECIFIED OSTEOARTHRITIS, UNSPECIFIED SITE Qualifiers: Osteoarthritis location: knee Osteoarthritis type: unspecified Laterality : right Qualified Code(s): M17.11 - Unilateral primary osteoarthritis, right knee (8) CHF (congestive heart failure) Code(s): I50.9 - HEART FAILURE, UNSPECIFIED Qualifiers: Heart failure type: unspecified Heart failure chronicity: unspecified Qualified Code(s): I50.9 - Heart failure, unspecified plan continue abx for couple of days physio rest as per the team
[2018-04-25] MEDS ORDERED: amLODIPine BESYLATE 2.5 MG TABLET (FP) PO ONE (15:00)
[2018-04-25] MEDS ORDERED: INSULIN (NOVOLOG) ASPART 100 UNITS/ML 10ML VIAL ONE (21:24)
[2018-04-25] MEDS: ROSUVASTATIN CA 10 MG TABLET (FP) PO SCH (21:48)
--- NOTE | 2018-04-25 23:59 | PN ---
Progress Note, Physician - Current Medication List Current Medications: Active Medications Amoxicillin/Clavulanate Potassium (Augmentin - 875mg Tablet) 1 tab PO BID@0800, 1730 [facility] Last Admin: 04/25/18 08:39 Dose: 1 tab Clopidogrel Bisulfate (Plavix -) 75 mg PO DAILY [facility] Last Admin: 04/25/18 08:39 Dose: 75 mg Heparin Sodium (Porcine) (Heparin -) 5,000 unit SQ TID [facility] Last Admin: 04/25/18 21:48 Dose: 5,000 unit Insulin Aspart (Novolog Vial Sliding Scale -) 1 vial SQ ACHS [facility]; Protocol Last Admin: 04/25/18 21:48 Dose: 2 units Metoprolol Succinate (Toprol Xl -) 25 mg PO DAILY [facility] Last Admin: 04/25/18 08:39 Dose: 25 mg Nifedipine (Procardia Xl -) 30 mg PO DAILY [facility] Last Admin: 04/25/18 08:40 Dose: 30 mg Pantoprazole Sodium (Protonix -) 40 mg PO DAILY [facility] Last Admin: 04/25/18 08:39 Dose: 40 mg Rosuvastatin Calcium (Crestor -) 10 mg PO HS [facility] Last Admin: 04/25/18 21:48 Dose: 10 mg Sitagliptin Phosphate (Januvia -) 25 mg PO DAILY@0700 [facility] Last Admin: 04/25/18 06:02 Dose: 25 mg Valsartan (Diovan -) 160 mg PO DAILY [facility] Last Admin: 04/25/18 08:43 Dose: 160 mg - Objective Vital Signs: Vital Signs Temperature 98.2 F 04/25/18 18:00 Pulse Rate 80 04/25/18 18:00 Respiratory Rate 20 04/25/18 18:00 Blood Pressure 178/92 H 04/25/18 18:00 O2 Sat by Pulse Oximetry (%) 95 04/25/18 21:00 Labs: CBC, BMP 04/22/18 05:30 04/22/18 05:30 INR, PTT INR 1.14 (0.83-1.09) H 18 12:26 Problem List - Problems (1) Swelling of knee joint, right Code(s): M25.461 - EFFUSION, RIGHT KNEE (2) CAD (coronary artery disease) Code(s): I25.10 - ATHSCL HEART DISEASE OF [place] CORONARY ARTERY W/O ANG PCTRS (3) HTN (hypertension) Code(s): I10 - ESSENTIAL (PRIMARY) HYPERTENSION (4) Chronic kidney disease Code(s): N18.9 - CHRONIC KIDNEY DISEASE, UNSPECIFIED Qualifiers: Chronic kidney disease stage: unspecified stage Qualified Code(s): N18.9 - Chronic kidney disease, unspecified (5) Diabetes Code(s): E11.9 - TYPE 2 DIABETES MELLITUS WITHOUT COMPLICATIONS Qualifiers: Diabetes mellitus type: type 2 (6) HLD (hyperlipidemia) Code(s): E78.5 - HYPERLIPIDEMIA, UNSPECIFIED (7) Osteoarthritis Code(s): M19.90 - UNSPECIFIED OSTEOARTHRITIS, UNSPECIFIED SITE Qualifiers: Osteoarthritis location: knee Osteoarthritis type: unspecified Laterality : right Qualified Code(s): M17.11 - Unilateral primary osteoarthritis, right knee (8) CHF (congestive heart failure) Code(s): I50.9 - HEART FAILURE, UNSPECIFIED Qualifiers: Heart failure type: unspecified Heart failure chronicity: unspecified Qualified Code(s): I50.9 - Heart failure, unspecified
[2018-04-26] MEDS ORDERED: INSULIN (NOVOLOG) ASPART 100 UNITS/ML 10ML VIAL ONE ×2 (06:09→21:38)
[2018-04-26] MEDS: INSULIN SLIDING SCALE (NOVOLOG) 1 VIAL SQ SCH ×4 (06:33→22:34)
[2018-04-26] MEDS: HEPARIN NA (PORCINE) 5,000 UNITS/ML 1ML VIAL SQ SCH ×3 (06:36→22:31)
[2018-04-26] MEDS: sitaGLIPtin PHOSPHATE 25 MG TABLET (FP) PO SCH (06:36)
[2018-04-26 08:31] LABS: BASO % 1.5 % (0-2.0); EOS % 1.8 % (0-4.5); HEMATOCRIT 40.6 % (32.4-45.2); HEMOGLOBIN 13.4 GM/dL (10.7-15.3); LYMPH % 14.8 % (8-40); MCH 27.4 pg (25.7-33.7); MEAN PLT VOLUME 7.8 fl (7.5-11.1); NEUT % 70.9 % (42.8-82.8); PLATELET COUNT 462 K/MM3 (134-434); RBC 4.89 M/mm3 (3.60-5.2); RDW 13.9 % (11.6-15.6); WHITE BLOOD COUNT 15.4 K/mm3 (4.0-10.0)
[2018-04-26] MEDS: VALSARTAN 160 MG TABLET (UD) PO SCH ×2 (09:11→14:25)
[2018-04-26] MEDS: PANTOPRAZOLE 40 MG TABLET (FP) PO SCH ×2 (09:11→14:25)
[2018-04-26] MEDS: AMOX TR/POT CLAV 875MG/125MG TABLETS (FP) PO SCH ×2 (09:12→14:25)
[2018-04-26] MEDS: NIFEdipine E.R. 30 MG TABLET (FP) PO SCH (09:12)
[2018-04-26] MEDS: CLOPIDOGREL BISULFATE 75 MG TABLET (FP) PO SCH ×2 (09:12→14:25)
[2018-04-26 09:29] LABS: ALBUMIN 2.7 g/dl (3.4-5.0); ALK PHOS 92 U/L (45-117); ANION GAP 11 MMOL/L (8-16); BILIRUBIN,TOTAL 0.4 mg/dL (0.2-1); BLOOD UREA NITROGEN 46 mg/dL (7-18); CALCIUM 9.6 mg/dL (8.5-10.1); CHLORIDE 94 mmol/L (98-107); CO2 22 mmol/L (21-32); CREATININE 1.8 mg/dL (0.55-1.3); GLUCOSE,RANDOM 117 mg/dL (74-106); POTASSIUM 5.2 mmol/L (3.5-5.1); SGOT/AST 37 U/L (15-37); SGPT/ALT 37 U/L (13-61); SODIUM 126 mmol/L (136-145); TOT PROT 7.2 g/dl (6.4-8.2)
[2018-04-26 12:08] LABS: ANISOCYTOSIS 0; MACROCYTOSIS 0; PLATELET ESTIMATE NORMAL; ROULEAU 2+
--- NOTE | 2018-04-26 12:41 | CON.CARD ---
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: CVA (Residual rt sided weakness) Cardio/Vascular: Yes: CAD, CHF (chronic diastolic ), HTN, Hyperlipdemia, Other ( Carotid atheromatous disease) Gastrointestinal: Yes: Peptic Ulcer Disease Renal/: Yes: Renal Inusuff Musculoskeletal: Yes: Osteoarthritis Rheumatology: Yes: Other (OA) Endocrine: Yes: Diabetes Mellitus - Alcohol/Substance Use Hx Alcohol Use: No - Smoking History Smoking history: Never smoked Have you smoked in the past 12 months: No Aproximately how many cigarettes per day: 0 - Social History Usual Living Arrangement: With Child ADL: Independent History of Recent Travel: No Home Medications - Allergies Allergies/Adverse Reactions: Allergies Allergy/AdvReac Type Severity Reaction Status Date / Time No Known Allergies Allergy Verified 04/20/18 12:09 - Home Medications Home Medications: Ambulatory Orders Clopidogrel Bisulfate [Plavix] 75 mg PO DAILY 04/20/18 Linagliptin [Tradjenta] 5 mg PO DAILY 04/20/18 Metoprolol Succinate [Toprol Xl] 25 mg PO DAILY 04/20/18 Nifedipine ER [Procardia XL -] 30 mg PO DAILY 04/20/18 Olmesartan Medoxomil [Benicar] 20 mg PO DAILY 04/20/18 Rosuvastatin [Crestor -] 10 mg PO DAILY 04/20/18 Amoxicillin/Potassium Clav [Augmentin 875-125 Tablet] 1 each PO BID #10 tablet 04/24/18 Pantoprazole Sodium [Protonix -] 40 mg PO DAILY #30 tablet.ec 04/24/18 Vital Signs: Vital Signs Temperature 98.2 F 04/26/18 08:46 Pulse Rate 75 04/26/18 08:46 Respiratory Rate 16 04/26/18 08:46 Blood Pressure 155/95 04/26/18 08:46 O2 Sat by Pulse Oximetry (%) 95 04/26/18 08:47 - Other Data Labs, Other Data: CBC, BMP 04/26/18 07:00 04/26/18 07:00 INR, PTT INR 1.14 (0.83-1.09) H 04/20/18 12:26
[2018-04-26] MEDS ORDERED: metoPROLOL SUCCINATE 25 MG TAB.SR.24H (FP) PO ONE (12:45)
--- NOTE | 2018-04-26 12:49 | PN ---
Progress Note, Physician Chief Complaint: Pt A&Ox3; daughters at bedside. She walked slowly today; no knee pain ("better after injection"); no chest pain; easily fatigued (chronic, per daughters); sedentary at home. History of Present Illness: 88 yo woman with h/o right knee OA, DM, HTN, CKD, CVA ( residual R sided weakness) who p/w Rt. knee pain and swelling. Patient with acute right knee pain , and swelling x 2 days. Denies trauma to knee. Typically ambulates with cane , but has been unable to bear weight on right knee beginning yesterday. Denies fall ,LOC, head trauma. Seen by Dr. Fontana and admitted to [facility] ( 07/2017) with similar R knee complaint, and inability to ambulate, with R knee aspiration , and depo-solumedrol injection. CT RLE with degenerative R knee arthritis, and mod suprapatellar effusion. Has attempted Celecoxib 200 mg with no relief. - Current Medication List Current Medications: Active Medications Albuterol/Ipratropium (Duoneb -) 1 amp NEB RQID [facility] Amoxicillin/Clavulanate Potassium (Augmentin - 875mg Tablet) 1 tab PO BID@0800, 1730 [facility] Last Admin: 04/26/18 09:12 Dose: 1 tab Clopidogrel Bisulfate (Plavix -) 75 mg PO DAILY [facility] Last Admin: 04/26/18 09:12 Dose: 75 mg Heparin Sodium (Porcine) (Heparin -) 5,000 unit SQ TID [facility] Last Admin: 04/26/18 06:36 Dose: 5,000 unit Insulin Aspart (Novolog Vial Sliding Scale -) 1 vial SQ ACHS [facility]; Protocol Last Admin: 04/26/18 11:27 Dose: Not Given Metoprolol Succinate (Toprol Xl -) 25 mg PO ONCE ONE Stop: 04/26/18 12:46 Metoprolol Succinate (Toprol Xl -) 75 mg PO DAILY [facility] Nifedipine (Procardia Xl -) 60 mg PO DAILY [facility] Last Admin: 04/26/18 09:12 Dose: 60 mg Pantoprazole Sodium (Protonix -) 40 mg PO DAILY [facility] Last Admin: 04/26/18 09:11 Dose: 40 mg Rosuvastatin Calcium (Crestor -) 10 mg PO HS [facility] Last Admin: 04/25/18 21:48 Dose: 10 mg Sitagliptin Phosphate (Januvia -) 25 mg PO DAILY@0700 [facility] Last Admin: 04/26/18 06:36 Dose: 25 mg Valsartan (Diovan -) 160 mg PO DAILY [facility] Last Admin: 04/26/18 09:11 Dose: 160 mg - Objective Vital Signs: Vital Signs Temperature 98.2 F 04/26/18 08:46 Pulse Rate 75 04/26/18 08:46 Respiratory Rate 16 04/26/18 08:46 Blood Pressure 155/95 04/26/18 08:46 O2 Sat by Pulse Oximetry (%) 95 04/26/18 08:47 Constitutional: Yes: Calm Eyes: Yes: WNL HENT: Yes: WNL Neck: Yes: WNL Cardiovascular: Yes: Regular Rate and Rhythm, S1, S2 Respiratory: Yes: WNL Gastrointestinal: Yes: Soft ...Rectal Exam: Yes: Deferred Genitourinary: No: Anuria Breast(s): Yes: WNL Musculoskeletal: Yes: Joint Stiffness, Muscle Weakness Extremities: Yes: Cool Edema: No Peripheral Pulses WNL: Yes Integumentary: Yes: WNL Neurological: Yes: WNL Psychiatric: Yes: WNL Labs: CBC, BMP 04/26/18 07:00 04/26/18 07:00 INR, PTT INR 1.14 (0.83-1.09) H 04/20/18 12:26 Problem List - Problems (1) Cardiomyopathy Code(s): I42.9 - CARDIOMYOPATHY, UNSPECIFIED Qualifiers: Cardiomyopathy type: unspecified Qualified Code(s): I42.9 - Cardiomyopathy , unspecified (2) Swelling of knee joint, right Assessment/Plan: s/p aspiration. F/u pain managment, physical rehabilitation. Code(s): M25.461 - EFFUSION, RIGHT KNEE (3) CAD (coronary artery disease) Code(s): I25.10 - ATHSCL HEART DISEASE OF [place] CORONARY ARTERY W/O ANG PCTRS (4) CHF (congestive heart failure) Assessment/Plan: limited ECHO made evaluation for LVEF difficult. Code(s): I50.9 - HEART FAILURE, UNSPECIFIED Qualifiers: Heart failure type: unspecified Heart failure chronicity: unspecified Qualified Code(s): I50.9 - Heart failure, unspecified (5) CKD (chronic kidney disease) Code(s): N18.9 - CHRONIC KIDNEY DISEASE, UNSPECIFIED Qualifiers: Chronic kidney disease stage: stage 3 (moderate) Qualified Code(s): N18.3 - Chronic kidney disease, stage 3 (moderate) (6) Diabetes Code(s): E11.9 - TYPE 2 DIABETES MELLITUS WITHOUT COMPLICATIONS Qualifiers: Diabetes mellitus type: type 2 (7) HLD (hyperlipidemia) Assessment/Plan: f/u lipid panel On rosuvastatin. Code(s): E78.5 - HYPERLIPIDEMIA, UNSPECIFIED (8) HTN (hypertension) Code(s): I10 - ESSENTIAL (PRIMARY) HYPERTENSION (9) Knee effusion, right Assessment/Plan: reduced after procedure Code(s): M25.461 - EFFUSION, RIGHT KNEE (10) Hyperkalemia Assessment/Plan: 5.2 on 04/26/18; f/u level. Hold ARB until level is checked. Code(s): E87.5 - HYPERKALEMIA
[2018-04-26] MEDS: ALBUTEROL SO4 2.5/IPRATROPIUM 0.5 INH SOL 3 ML VIAL.NEB. NEB SCH ×2 (16:30→20:10)
--- NOTE | 2018-04-26 16:52 | PN ---
Progress Note, Physician History of Present Illness: Pt seen and examined. Daughter at bedside. States she is feeling better, improved knee pain. Remains afebrile but wbc increased. No shortness of breath/ cough, no chills, no dysuria, no abd pain/n/v/d. Mild rash noted on upper chest. - Current Medication List Current Medications: Active Medications Albuterol/Ipratropium (Duoneb -) 1 amp NEB RQID [facility] Last Admin: 04/26/18 16:30 Dose: 1 amp Amoxicillin/Clavulanate Potassium (Augmentin - 875mg Tablet) 1 tab PO BID@0800, 1730 [facility] Last Admin: 04/26/18 14:25 Dose: Not Given Clopidogrel Bisulfate (Plavix -) 75 mg PO DAILY [facility] Last Admin: 04/26/18 14:25 Dose: Not Given Heparin Sodium (Porcine) (Heparin -) 5,000 unit SQ TID [facility] Last Admin: 04/26/18 14:46 Dose: 5,000 unit Insulin Aspart (Novolog Vial Sliding Scale -) 1 vial SQ ACHS [facility]; Protocol Last Admin: 04/26/18 16:22 Dose: Not Given Metoprolol Succinate (Toprol Xl -) 75 mg PO DAILY [facility] Nifedipine (Procardia Xl -) 60 mg PO DAILY [facility] Last Admin: 04/26/18 09:12 Dose: 60 mg Pantoprazole Sodium (Protonix -) 40 mg PO DAILY [facility] Last Admin: 04/26/18 14:25 Dose: Not Given Rosuvastatin Calcium (Crestor -) 10 mg PO HS [facility] Last Admin: 04/25/18 21:48 Dose: 10 mg Sitagliptin Phosphate (Januvia -) 25 mg PO DAILY@0700 [facility] Last Admin: 04/26/18 06:36 Dose: 25 mg Valsartan (Diovan -) 160 mg PO DAILY [facility] Last Admin: 04/26/18 14:25 Dose: Not Given - Objective Vital Signs: Vital Signs Temperature 97.6 F 04/26/18 14:12 Pulse Rate 81 04/26/18 14:12 Respiratory Rate 16 04/26/18 08:46 Blood Pressure 159/81 04/26/18 14:12 O2 Sat by Pulse Oximetry (%) 95 04/26/18 08:47 Constitutional: Yes: No Distress, Calm Cardiovascular: Yes: Regular Rate and Rhythm Respiratory: Yes: Regular Gastrointestinal: Yes: Normal Bowel Sounds, Soft Musculoskeletal: Yes: Joint Swelling (minimal Rt knee edema, no erythema, no warmth, no tenderness) Integumentary: Yes: Rash (mild erythema upper chest, no pruritis) Neurological: Yes: Alert Labs: CBC, BMP 04/26/18 07:00 04/26/18 07:00 INR, PTT INR 1.14 (0.83-1.09) H 04/20/18 12:26 Microbiology 04/20/18 12:26 Blood - Peripheral Venous Blood Culture - Final NO GROWTH AFTER 5 DAYS INCUBATION 04/20/18 12:26 Blood - Peripheral Venous Blood Culture - Final NO GROWTH AFTER 5 DAYS INCUBATION 04/20/18 15:03 Aspirate Gram Stain - Final 04/20/18 15:03 Aspirate Body Fluid Culture - Final NO GROWTH OF AEROBIC ORGANISMS AFTER 48 HOURS INCUBATION 04/20/18 15:03 Aspirate Anaerobic Culture - Final NO ANAEROBES WERE ISOLATED 04/20/18 15:03 Knee - Right Gram Stain - Final Problem List - Problems (1) History of stroke Code(s): Z86.73 - PRSNL HX OF TIA (TIA), AND CEREB INFRC W/O RESID DEFICITS (2) Swelling of knee joint, right Code(s): M25.461 - EFFUSION, RIGHT KNEE (3) CAD (coronary artery disease) Code(s): I25.10 - ATHSCL HEART DISEASE OF [place] CORONARY ARTERY W/O ANG PCTRS (4) Diabetes Code(s): E11.9 - TYPE 2 DIABETES MELLITUS WITHOUT COMPLICATIONS Qualifiers: Diabetes mellitus type: type 2 (5) HLD (hyperlipidemia) Code(s): E78.5 - HYPERLIPIDEMIA, UNSPECIFIED (6) HTN (hypertension) Code(s): I10 - ESSENTIAL (PRIMARY) HYPERTENSION (7) Osteoarthritis Code(s): M19.90 - UNSPECIFIED OSTEOARTHRITIS, UNSPECIFIED SITE Qualifiers: Osteoarthritis location: knee Osteoarthritis type: unspecified Laterality : right Qualified Code(s): M17.11 - Unilateral primary osteoarthritis, right knee Assessment/Plan Rt knee Edema Leukocytosis DM Hx of CVA OA CAD -- Rt knee edema improved -- wbc elevated from previous, fever resolved -- mild rash noted, possibly due to Augmentin -- will switch to keflex, repeat cbc, monitor vitals closely pt appears stable at this time
[2018-04-26] MEDS: ROSUVASTATIN CA 10 MG TABLET (FP) PO SCH (22:32)
[2018-04-26] MEDS: CEPHALEXIN MONOHYDRATE 500 MG CAPSULE (UD) PO SCH (22:32)
--- NOTE | 2018-04-27 00:22 | PN ---
Progress Note (short form) - Note Progress Note: patient seen in room daughter at bedside breathing improved / cough persist Vital Signs Period Temp Pulse Resp BP Sys/Vasquez Pulse Ox Last 24 Hr 97.6 F-976 F 69-81 16-20 147-159/61-96 95-97 sitting up in bed neck supple heart s1/S2 lungs coarse wheezing abd benign CBC, BMP 04/26/18 07:00 04/26/18 07:00 Microbiology 04/20/18 12:26 Blood - Peripheral Venous Blood Culture - Final NO GROWTH AFTER 5 DAYS INCUBATION 04/20/18 12:26 Blood - Peripheral Venous Blood Culture - Final NO GROWTH AFTER 5 DAYS INCUBATION 04/20/18 15:03 Aspirate Gram Stain - Final 04/20/18 15:03 Aspirate Body Fluid Culture - Final NO GROWTH OF AEROBIC ORGANISMS AFTER 48 HOURS INCUBATION 04/20/18 15:03 Aspirate Anaerobic Culture - Final NO ANAEROBES WERE ISOLATED 04/20/18 15:03 Knee - Right Gram Stain - Final Active Medications Albuterol/Ipratropium (Duoneb -) 1 amp NEB RQID [facility] Last Admin: 04/26/18 20:10 Dose: 1 amp Cephalexin HCl (Keflex -) 500 mg PO BID [facility] Last Admin: 04/26/18 22:32 Dose: 500 mg Clopidogrel Bisulfate (Plavix -) 75 mg PO DAILY [facility] Last Admin: 04/26/18 14:25 Dose: Not Given Heparin Sodium (Porcine) (Heparin -) 5,000 unit SQ TID [facility] Last Admin: 04/26/18 22:31 Dose: 5,000 unit Insulin Aspart (Novolog Vial Sliding Scale -) 1 vial SQ ACHS [facility]; Protocol Last Admin: 04/26/18 22:34 Dose: 2 units Metoprolol Succinate (Toprol Xl -) 75 mg PO DAILY [facility] Nifedipine (Procardia Xl -) 60 mg PO DAILY [facility] Last Admin: 04/26/18 09:12 Dose: 60 mg Pantoprazole Sodium (Protonix -) 40 mg PO DAILY [facility] Last Admin: 04/26/18 14:25 Dose: Not Given Rosuvastatin Calcium (Crestor -) 10 mg PO HS [facility] Last Admin: 04/26/18 22:32 Dose: 10 mg Sitagliptin Phosphate (Januvia -) 25 mg PO DAILY@0700 [facility] Last Admin: 04/26/18 06:36 Dose: 25 mg Valsartan (Diovan -) 160 mg PO DAILY [facility] Last Admin: 04/26/18 14:25 Dose: Not Given 88 year old female with DM 2, HTN, Chronic Diastolic CHF, Cerebrovascular Disease, PUD, CKD, Hyponatremia, admitted with R knee swelling/tenderness/pain/ inability to weight bear. #R knee swelling - acute No erythema/fever/chills Aspirate s/p Arthrocentesis - negative Culture Empirically on Ceftriaxone - ID following. Underwent further arthrocentesis and Steroid injection 04/23 #hyponatremia fluid restrict # CKD4 stable #DM continue Januvia / statins sliding scale ada diet # HTN continue home meds # CAD HFpEF stable # coughing CXR nebulizer tx
[2018-04-27] MEDS: INSULIN SLIDING SCALE (NOVOLOG) 1 VIAL SQ SCH ×4 (06:12→21:01)
[2018-04-27] MEDS: HEPARIN NA (PORCINE) 5,000 UNITS/ML 1ML VIAL SQ SCH ×3 (06:13→21:01)
[2018-04-27] MEDS: sitaGLIPtin PHOSPHATE 25 MG TABLET (FP) PO SCH (06:13)
[2018-04-27] MEDS: ALBUTEROL SO4 2.5/IPRATROPIUM 0.5 INH SOL 3 ML VIAL.NEB. NEB SCH ×4 (08:15→19:40)
[2018-04-27 08:29] LABS: BASO % 0.8 % (0-2.0); EOS % 3.1 % (0-4.5); HEMATOCRIT 42.4 % (32.4-45.2); HEMOGLOBIN 13.9 GM/dL (10.7-15.3); LYMPH % 15.8 % (8-40); MCH 27.2 pg (25.7-33.7); MCHC 32.8 g/dl (32.0-36.0); MEAN PLT VOLUME 7.6 fl (7.5-11.1); MONO % 12.9 % (3.8-10.2); NEUT % 67.4 % (42.8-82.8); PLATELET COUNT 453 K/MM3 (134-434); RBC 5.11 M/mm3 (3.60-5.2)
[2018-04-27] MEDS ORDERED: PT OWN MED DRAWER 7, Y5N ONE (09:37)
[2018-04-27] MEDS: PANTOPRAZOLE 40 MG TABLET (FP) PO SCH ×2 (09:42→09:44)
[2018-04-27] MEDS: CLOPIDOGREL BISULFATE 75 MG TABLET (FP) PO SCH (09:42)
[2018-04-27] MEDS: CEPHALEXIN MONOHYDRATE 500 MG CAPSULE (UD) PO SCH ×2 (09:44→21:01)
[2018-04-27] MEDS: VALSARTAN 160 MG TABLET (UD) PO SCH (09:44)
[2018-04-27] MEDS: NIFEdipine E.R. 30 MG TABLET (FP) PO SCH (09:44)
[2018-04-27 11:18] LABS: ANISOCYTOSIS 0; MACROCYTOSIS 0; PLATELET ESTIMATE INCREASED
--- NOTE | 2018-04-27 13:36 | PN ---
Progress Note, Physician History of Present Illness: No new events. Pt had PT today. Rt knee less edematous/less pain. Rash on chest resolved. - Current Medication List Current Medications: Active Medications Albuterol/Ipratropium (Duoneb -) 1 amp NEB RQID [facility] Last Admin: 04/27/18 12:25 Dose: 1 amp Cephalexin HCl (Keflex -) 500 mg PO BID [facility] Last Admin: 04/27/18 09:44 Dose: 500 mg Clopidogrel Bisulfate (Plavix -) 75 mg PO DAILY [facility] Last Admin: 04/27/18 09:42 Dose: 75 mg Heparin Sodium (Porcine) (Heparin -) 5,000 unit SQ TID [facility] Last Admin: 04/27/18 06:13 Dose: 5,000 unit Insulin Aspart (Novolog Vial Sliding Scale -) 1 vial SQ ACHS [facility]; Protocol Last Admin: 04/27/18 11:27 Dose: Not Given Metoprolol Succinate (Toprol Xl -) 75 mg PO DAILY [facility] Last Admin: 04/27/18 09:43 Dose: 75 mg Nifedipine (Procardia Xl -) 60 mg PO DAILY [facility] Last Admin: 04/27/18 09:44 Dose: 60 mg Pantoprazole Sodium (Protonix -) 40 mg PO DAILY [facility] Last Admin: 04/27/18 09:44 Dose: 40 mg Rosuvastatin Calcium (Crestor -) 10 mg PO HS [facility] Last Admin: 04/26/18 22:32 Dose: 10 mg Sitagliptin Phosphate (Januvia -) 25 mg PO DAILY@0700 [facility] Last Admin: 04/27/18 06:13 Dose: 25 mg Valsartan (Diovan -) 160 mg PO DAILY [facility] Last Admin: 04/27/18 09:44 Dose: 160 mg - Objective Vital Signs: Vital Signs Temperature 98.4 F 04/27/18 06:57 Pulse Rate 65 04/27/18 06:57 Respiratory Rate 20 04/27/18 06:57 Blood Pressure 132/76 04/27/18 06:57 O2 Sat by Pulse Oximetry (%) 97 04/26/18 21:00 Constitutional: Yes: No Distress, Calm Cardiovascular: Yes: Regular Rate and Rhythm Respiratory: Yes: Regular Gastrointestinal: Yes: Normal Bowel Sounds, Soft Musculoskeletal: Yes: Joint Swelling (mild Rt edema) Integumentary: Yes: WNL Neurological: Yes: Alert Labs: CBC, BMP 04/27/18 07:45 04/26/18 07:00 INR, PTT INR 1.14 (0.83-1.09) H 04/20/18 12:26 Problem List - Problems (1) History of stroke Code(s): Z86.73 - PRSNL HX OF TIA (TIA), AND CEREB INFRC W/O RESID DEFICITS (2) Swelling of knee joint, right Code(s): M25.461 - EFFUSION, RIGHT KNEE (3) CAD (coronary artery disease) Code(s): I25.10 - ATHSCL HEART DISEASE OF [place] CORONARY ARTERY W/O ANG PCTRS (4) Diabetes Code(s): E11.9 - TYPE 2 DIABETES MELLITUS WITHOUT COMPLICATIONS Qualifiers: Diabetes mellitus type: type 2 (5) HLD (hyperlipidemia) Code(s): E78.5 - HYPERLIPIDEMIA, UNSPECIFIED (6) HTN (hypertension) Code(s): I10 - ESSENTIAL (PRIMARY) HYPERTENSION (7) Osteoarthritis Code(s): M19.90 - UNSPECIFIED OSTEOARTHRITIS, UNSPECIFIED SITE Qualifiers: Osteoarthritis location: knee Osteoarthritis type: unspecified Laterality : right Qualified Code(s): M17.11 - Unilateral primary osteoarthritis, right knee Assessment/Plan Rt knee Edema Leukocytosis- improved since yesterday DM Hx of CVA OA CAD Rash- antibiotics switched to keflex, resolved -- Rt knee edema improved -- continue antibiotics -- monitor wbc pt appears stable at this time
[2018-04-27] MEDS ORDERED: SODIUM CHLORIDE 1 GM TABLET PO ONE (14:23)
--- NOTE | 2018-04-27 15:41 | PN ---
Progress Note (short form) - Note Progress Note: patient seen in room daughter at bedside breathing improved / cough persist daughter report chronic hyponatremia , which has resulted in re admission in the past awaiting for tramsfere to [facility] in am was able to participate with PT earlier in the day Vital Signs Period Temp Pulse Resp BP Sys/Vasquez Pulse Ox Last 24 Hr 97.6 F-976 F 69-81 16-20 147-159/61-96 95-97 sitting up in bed neck supple heart s1/S2 lungs scatterred wheezing / improved bs abd benign ext no edema CBC, BMP 04/27/18 07:45 04/26/18 07:00 Microbiology 04/20/18 12:26 Blood - Peripheral Venous Blood Culture - Final NO GROWTH AFTER 5 DAYS INCUBATION 04/20/18 12:26 Blood - Peripheral Venous Blood Culture - Final NO GROWTH AFTER 5 DAYS INCUBATION 04/20/18 15:03 Aspirate Gram Stain - Final 04/20/18 15:03 Aspirate Body Fluid Culture - Final NO GROWTH OF AEROBIC ORGANISMS AFTER 48 HOURS INCUBATION 04/20/18 15:03 Aspirate Anaerobic Culture - Final NO ANAEROBES WERE ISOLATED 04/20/18 15:03 Knee - Right Gram Stain - Final Active Medications Albuterol/Ipratropium (Duoneb -) 1 amp NEB RQID [facility] Last Admin: 04/27/18 12:25 Dose: 1 amp Cephalexin HCl (Keflex -) 500 mg PO BID [facility] Last Admin: 04/27/18 09:44 Dose: 500 mg Clopidogrel Bisulfate (Plavix -) 75 mg PO DAILY [facility] Last Admin: 04/27/18 09:42 Dose: 75 mg Heparin Sodium (Porcine) (Heparin -) 5,000 unit SQ TID [facility] Last Admin: 04/27/18 14:14 Dose: 5,000 unit Insulin Aspart (Novolog Vial Sliding Scale -) 1 vial SQ ACHS [facility]; Protocol Last Admin: 04/27/18 11:27 Dose: Not Given Metoprolol Succinate (Toprol Xl -) 75 mg PO DAILY [facility] Last Admin: 04/27/18 09:43 Dose: 75 mg Nifedipine (Procardia Xl -) 60 mg PO DAILY [facility] Last Admin: 04/27/18 09:44 Dose: 60 mg Pantoprazole Sodium (Protonix -) 40 mg PO DAILY [facility] Last Admin: 04/27/18 09:44 Dose: 40 mg Rosuvastatin Calcium (Crestor -) 10 mg PO HS [facility] Last Admin: 04/26/18 22:32 Dose: 10 mg Sitagliptin Phosphate (Januvia -) 25 mg PO DAILY@0700 [facility] Last Admin: 04/27/18 06:13 Dose: 25 mg Sodium Chloride (Sodium Chloride Tablet -) 1 gm PO BID [facility] Valsartan (Diovan -) 160 mg PO DAILY [facility] Last Admin: 04/27/18 09:44 Dose: 160 mg 88 year old female with DM 2, HTN, Chronic Diastolic CHF, Cerebrovascular Disease, PUD, CKD, Hyponatremia, admitted with R knee swelling/tenderness/pain/ inability to weight bear. #R knee swelling - acute No erythema/fever/chills Aspirate s/p Arthrocentesis - negative Culture Empirically on Ceftriaxone - ID following. Underwent further arthrocentesis and Steroid injection 04/23 #hyponatremia fluid restrict start Na Cl tab follow up labs in am # CKD4 stable #DM continue Januvia / statins sliding scale ada diet # HTN continue home meds # CAD HFpEF stable # coughing CXR nebulizer tx
[2018-04-27] MEDS ORDERED: INSULIN (NOVOLOG) ASPART 100 UNITS/ML 10ML VIAL ONE (20:52)
[2018-04-27] MEDS: ROSUVASTATIN CA 10 MG TABLET (FP) PO SCH (21:01)
[2018-04-27] MEDS: SODIUM CHLORIDE 1 GM TABLET PO SCH (21:01)
[2018-04-28] MEDS: HEPARIN NA (PORCINE) 5,000 UNITS/ML 1ML VIAL SQ SCH (06:03)
[2018-04-28] MEDS: sitaGLIPtin PHOSPHATE 25 MG TABLET (FP) PO SCH (06:03)
[2018-04-28] MEDS: INSULIN SLIDING SCALE (NOVOLOG) 1 VIAL SQ SCH ×2 (06:05→11:21)
[2018-04-28] MEDS: ALBUTEROL SO4 2.5/IPRATROPIUM 0.5 INH SOL 3 ML VIAL.NEB. NEB SCH ×3 (07:33→15:55)
[2018-04-28 08:01] LABS: BASO % 1.3 % (0-2.0); EOS % 3.8 % (0-4.5); HEMATOCRIT 39.6 % (32.4-45.2); HEMOGLOBIN 12.8 GM/dL (10.7-15.3); LYMPH % 19.2 % (8-40); MCH 27.1 pg (25.7-33.7); MCHC 32.4 g/dl (32.0-36.0); MEAN CELL VOLUME 83.9 fl (80-96); MEAN PLT VOLUME 7.9 fl (7.5-11.1); MONO % 11.6 % (3.8-10.2); NEUT % 64.1 % (42.8-82.8); PLATELET COUNT 455 K/MM3 (134-434); RBC 4.72 M/mm3 (3.60-5.2); RDW 14.2 % (11.6-15.6); WHITE BLOOD COUNT 14.2 K/mm3 (4.0-10.0)
[2018-04-28 08:32] LABS: ANION GAP 7 MMOL/L (8-16); BLOOD UREA NITROGEN 54 mg/dL (7-18); CALCIUM 9.6 mg/dL (8.5-10.1); CHLORIDE 98 mmol/L (98-107); CO2 23 mmol/L (21-32); CREATININE 1.9 mg/dL (0.55-1.3); GLUCOSE,RANDOM 106 mg/dL (74-106); POTASSIUM 5.6 mmol/L (3.5-5.1); SODIUM 128 mmol/L (136-145)
[2018-04-28 10:42] LABS: ANISOCYTOSIS 1+; MACROCYTOSIS 0; PLATELET ESTIMATE NORMAL
[2018-04-28] MEDS ORDERED: INSULIN (NOVOLOG) ASPART 100 UNITS/ML 10ML VIAL ONE (11:06)
[2018-04-28] MEDS ORDERED: PT OWN MED DRAWER 7, Y5N ONE (11:07)
[2018-04-28] MEDS: CEPHALEXIN MONOHYDRATE 500 MG CAPSULE (UD) PO SCH (11:11)
[2018-04-28] MEDS: VALSARTAN 160 MG TABLET (UD) PO SCH ×2 (11:11→11:13)
[2018-04-28] MEDS: PANTOPRAZOLE 40 MG TABLET (FP) PO SCH (11:11)
[2018-04-28] MEDS: SODIUM CHLORIDE 1 GM TABLET PO SCH (11:12)
[2018-04-28] MEDS: CLOPIDOGREL BISULFATE 75 MG TABLET (FP) PO SCH (11:13)
[2018-04-28] MEDS: NIFEdipine E.R. 30 MG TABLET (FP) PO SCH (11:14)
[2018-04-28 13:06] LABS: CHOLESTEROL 142 mg/dL (50-200); HDL CHOLESTEROL 48 mg/dL (40-60); TRIGLYCERIDES 154 mg/dL (0-150)
--- NOTE | 2018-04-28 15:04 | PN ---
Progress Note (short form) - Note Progress Note: MUCH IMPROVED LESS PAIN AND MORE ROM INCREASED ABILITY TO AMBULATE PLAN: OK FOR DC TO SNF TODAY
--- NOTE | 2018-04-28 15:37 | PN ---
Progress Note, Physician History of Present Illness: doing well no new issues - Current Medication List Current Medications: Active Medications Albuterol/Ipratropium (Duoneb -) 1 amp NEB RQID [facility] Last Admin: 04/28/18 11:04 Dose: 1 amp Cephalexin HCl (Keflex -) 500 mg PO BID [facility] Last Admin: 04/28/18 11:11 Dose: 500 mg Clopidogrel Bisulfate (Plavix -) 75 mg PO DAILY [facility] Last Admin: 04/28/18 11:13 Dose: 75 mg Heparin Sodium (Porcine) (Heparin -) 5,000 unit SQ TID [facility] Last Admin: 04/28/18 06:03 Dose: 5,000 unit Insulin Aspart (Novolog Vial Sliding Scale -) 1 vial SQ ACHS [facility]; Protocol Last Admin: 04/28/18 11:21 Dose: Not Given Metoprolol Succinate (Toprol Xl -) 75 mg PO DAILY [facility] Last Admin: 04/28/18 11:11 Dose: 75 mg Nifedipine (Procardia Xl -) 60 mg PO DAILY [facility] Last Admin: 04/28/18 11:14 Dose: 60 mg Pantoprazole Sodium (Protonix -) 40 mg PO DAILY [facility] Last Admin: 04/28/18 11:11 Dose: 40 mg Rosuvastatin Calcium (Crestor -) 10 mg PO HS [facility] Last Admin: 04/27/18 21:01 Dose: 10 mg Sitagliptin Phosphate (Januvia -) 25 mg PO DAILY@0700 [facility] Last Admin: 04/28/18 06:03 Dose: 25 mg Sodium Chloride (Sodium Chloride Tablet -) 1 gm PO BID [facility] Last Admin: 04/28/18 11:12 Dose: 1 gm Valsartan (Diovan -) 160 mg PO DAILY [facility] Last Admin: 04/28/18 11:13 Dose: 160 mg - Objective Vital Signs: Vital Signs Temperature 98.5 F 04/28/18 06:37 Pulse Rate 67 04/28/18 06:37 Respiratory Rate 20 04/27/18 21:27 Blood Pressure 129/74 04/28/18 06:37 O2 Sat by Pulse Oximetry (%) 97 04/27/18 09:00 Constitutional: Yes: No Distress, Calm Respiratory: Yes: Regular, CTA Bilaterally Gastrointestinal: Yes: Normal Bowel Sounds, Soft Musculoskeletal: Yes: WNL Extremities: Yes: Other Neurological: Yes: Alert, Oriented Psychiatric: Yes: Alert, Oriented Labs: CBC, BMP 04/28/18 07:00 04/28/18 07:00 INR, PTT INR 1.14 (0.83-1.09) H 04/20/18 12:26 Assessment/Plan Problem List - Problems (1) Swelling of knee joint, right Code(s): M25.461 - EFFUSION, RIGHT KNEE (2) CAD (coronary artery disease) Code(s): I25.10 - ATHSCL HEART DISEASE OF [place] CORONARY ARTERY W/O ANG PCTRS (3) HTN (hypertension) Code(s): I10 - ESSENTIAL (PRIMARY) HYPERTENSION (4) Chronic kidney disease Code(s): N18.9 - CHRONIC KIDNEY DISEASE, UNSPECIFIED Qualifiers: Chronic kidney disease stage: unspecified stage Qualified Code(s): N18.9 - Chronic kidney disease, unspecified (5) Diabetes Code(s): E11.9 - TYPE 2 DIABETES MELLITUS WITHOUT COMPLICATIONS (6) HLD (hyperlipidemia) Code(s): E78.5 - HYPERLIPIDEMIA, UNSPECIFIED (7) Osteoarthritis Code(s): M19.90 - UNSPECIFIED OSTEOARTHRITIS, UNSPECIFIED SITE Qualifiers: Osteoarthritis location: knee Osteoarthritis type: unspecified Laterality : right Qualified Code(s): M17.11 - Unilateral primary osteoarthritis, right knee (8) CHF (congestive heart failure) Code(s): I50.9 - HEART FAILURE, UNSPECIFIED Qualifiers: Heart failure type: unspecified Heart failure chronicity: unspecified Qualified Code(s): I50.9 - Heart failure, unspecified plan continue current mgmt physio rest as per the team monitor bp
[2018-04-28 15:49] VITALS: BP 137/77; PULSE 73; TEMP 98.2
== END 2018-04-28 16:36 | disposition home health service (06) | DRG 565 ==
LOC: JER 11:52 → JERBED 15:52 → J6S 17:34
PROVIDERS: ADMIT Internal Medicine; ATTEND Internal Medicine
PROC: 0S9C3ZX Drainage of Right Knee Joint, Percutaneous Approach, Diagnostic (ICD-10-PCS; principal; 2018-04-20)
PROC: 3E0U33Z Introduction of Anti-inflammatory into Joints, Percutaneous Approach (ICD-10-PCS; 2018-04-23)
PROC: 3E0U3BZ Introduction of Anesthetic Agent into Joints, Percutaneous Approach (ICD-10-PCS; 2018-04-23)
DX: M25.461 Effusion, right knee (principal); I69.351 Hemiplegia and hemiparesis following cerebral infarction affecting right dominant side; I13.0 Hypertensive heart and chronic kidney disease with heart failure and stage 1 through stage 4 chronic kidney disease, or unspecified chronic kidney disease; I42.8 Other cardiomyopathies; E87.1 Hypo-osmolality and hyponatremia; N18.4 Chronic kidney disease, stage 4 (severe); M17.11 Unilateral primary osteoarthritis, right knee; E11.22 Type 2 diabetes mellitus with diabetic chronic kidney disease; E78.00 Pure hypercholesterolemia, unspecified; E87.5 Hyperkalemia; D72.829 Elevated white blood cell count, unspecified; I25.10 Atherosclerotic heart disease of native coronary artery without angina pectoris; I50.9 Heart failure, unspecified; R21 Rash and other nonspecific skin eruption; R05 Cough; Z87.11 Personal history of peptic ulcer disease; Z79.02 Long term (current) use of antithrombotics/antiplatelets
CPT/HCPCS: 36415; 71045-TC-FY; 73562-TC-RT-FY; 76775-TC; 80048; 80053; 80061; 81003; 81015; 82533; 82803; 82962; 83036; 83605; 83721; 83735; 84443; 84484; 85025; 85610; 85651; 85730; 86140; 87040; 87070; 87075; 87205; 89051; 89060; 93005; 93010; 93306-TC; 93880-TC; 93971-TC; 94640; 97116-GP; 97161-GP; 99282-25; J1644

== ENCOUNTER 2018-05-03 12:11 | Inpatient (IN) | payer OTHER ==
[2018-05-03 13:13] VITALS: BMI 27.8
--- NOTE | 2018-05-03 13:23 | PDOC ---
*Physical Exam - Vital Signs Last Vital Signs Temp Pulse Resp BP Pulse Ox 98.2 F 73 16 145/78 100 05/03/18 12:30 05/03/18 12:30 05/03/18 12:30 05/03/18 12:30 05/03/18 12:30 ED Treatment Course - LABORATORY CBC & Chemistry Diagram: 05/07/18 05:30 05/07/18 05:30 Medical Decision Making - Medical Decision Making 05/03/18 14:10 Ms Colby is an 88 yo F who presents to the ER from the custodial with two of her daughters she is s/p a fall from her bed today at 3am Pt was placed back in bed by the custodial staff Reported right side pain No nausea or vomiting Pt has severe pain with movement of any kind Will do: Labs EKG IV pain medications CT head/neck/chest/abd/pelvis Will re assess 05/03/18 14:14 Laboratory Tests 05/03/18 05/03/18 13:38 13:38 WBC 15.0 H Hgb 12.4 Hct 37.8 Plt Count 458 H INR 1.05 05/03/18 14:18 EKG - Twelve-lead EKG was performed and reviewed by me. There is normal sinus rhythm with a normal rate. The axis is normal. The intervals are normal. There are no ST or T wave abnormalities. Impression: Normal twelve-lead EKG CT pending Pt signed out to Dr Young Will admit *DC/Admit/Observation/Transfer Diagnosis at time of Disposition: Acute renal failure (ARF), Hyperkalemia, Hyponatremia, Chronic kidney disease - Discharge Dispostion Condition at time of disposition: Fair - Referrals - Patient Instructions - Post Discharge Activity
[2018-05-03] MEDS ORDERED: MORPHINE SULFATE 2 MG/ML VIAL ONE (13:47)
[2018-05-03 13:50] LABS: EOS % 2.2 % (0-4.5); HEMATOCRIT 37.8 % (32.4-45.2); HEMOGLOBIN 12.4 GM/dL (10.7-15.3); LYMPH % 14.5 % (8-40); MCH 27.6 pg (25.7-33.7); MCHC 32.8 g/dl (32.0-36.0); MONO % 11.9 % (3.8-10.2); NEUT % 70.4 % (42.8-82.8); PLATELET COUNT 458 K/MM3 (134-434); RDW 14.2 % (11.6-15.6)
[2018-05-03] MEDS ORDERED: morphine CARPU-JECT 4 MG/1 ML DISP.SYRIN IVPUSH ONE (13:59)
[2018-05-03 14:06] LABS: INR 1.05 (0.83-1.09); PROTHROMBIN TIME (PATIENT) 12.4 SEC (9.7-13.0)
[2018-05-03 14:34] LABS: ANISOCYTOSIS 0; MACROCYTOSIS 0; PLATELET ESTIMATE NORMAL
--- NOTE | 2018-05-03 15:39 | PDOC ---
History of Present Illness - General Chief Complaint: Injury Stated Complaint: FALL Time Seen by Provider: 05/03/18 12:44 History Source: Patient Exam Limitations: No Limitations - History of Present Illness Initial Comments: 05/03/18 19:03 Patient is a 88-year-old female past medical history of non-insulin dependent diabetes, hypertension, hyperlipidemia, CVA with residual right-sided weakness, coronary artery disease, who presents to the emergency department today for right hip pain that is post fall. Patient states she is getting changed at the long-term at 3 AM this morning when the nurse told her to foreign she fell out of bed. She states that on her right hip. Denies hitting her head or blacking out. She currently endorses right hip and leg pain. Denies fevers, chills, neck pain, recent illness, nausea, vomiting, diarrhea, difficulty, urgency, hematuria, weakness and lightheadedness. Past History - Travel Traveled outside of the country in the last 30 days: No Close contact w/someone who was outside of country & ill: No - Past Medical History Allergies/Adverse Reactions: Allergies Allergy/AdvReac Type Severity Reaction Status Date / Time No Known Allergies Allergy Verified 05/03/18 13:15 Home Medications: Ambulatory Orders Clopidogrel Bisulfate [Plavix] 75 mg PO DAILY 04/20/18 Linagliptin [Tradjenta] 5 mg PO DAILY 04/20/18 Metoprolol Succinate [Toprol Xl] 25 mg PO DAILY 04/20/18 Nifedipine ER [Procardia XL -] 30 mg PO DAILY 04/20/18 Olmesartan Medoxomil [Benicar] 20 mg PO DAILY 04/20/18 Rosuvastatin [Crestor -] 10 mg PO DAILY 04/20/18 Amoxicillin/Potassium Clav [Augmentin 875-125 Tablet] 1 each PO BID #10 tablet 04/24/18 Pantoprazole Sodium [Protonix -] 40 mg PO DAILY #30 tablet.ec 04/24/18 Anemia: No Asthma: No Cancer: No Cardiac Disorders: Yes CVA: Yes (right sided weakness-) COPD: No CHF: No Diabetes: Yes Dialysis: No (CKD) GI Disorders: Yes (BLEEDING GASTRIC ULCER) Disorders: Yes (CKD) HTN: Yes Hypercholesterolemia: Yes Liver Disease: No Thyroid Disease: No - Surgical History Abdominal Surgery: Yes (FOR ULCER- GASTRIC) Appendectomy: No Cardiac Surgery: No Cholecystectomy: No Lung Surgery: No Neurologic Surgery: No Orthopedic Surgery: No - Suicide/Smoking/Psychosocial Hx Smoking Status: No Smoking History: Never smoked Have you smoked in the past 12 months: No Number of Cigarettes Smoked Daily: 0 Information on smoking cessation initiated: No Hx Alcohol Use: No Drug/Substance Use Hx: No Substance Use Type: None Hx Substance Use Treatment: No Review of Systems - Review of Systems Able to Perform ROS?: Yes Comments:: 05/03/18 19:04 CONSTITUTIONAL: Absent: fever, chills, diaphoresis, generalized weakness, malaise, loss of appetite HEENT: Absent: rhinorrhea, nasal congestion, throat pain, throat swelling, difficulty swallowing, mouth swelling, ear pain, eye pain, visual Changes CARDIOVASCULAR: Absent: chest pain, loss of consciousness, palpitations, irregular heart rate, peripheral edema RESPIRATORY: Absent: cough, shortness of breath, dyspnea with exertion, orthopnea, wheezing, stridor, hemoptysis GASTROINTESTINAL: Absent: abdominal pain, abdominal distension, nausea, vomiting, diarrhea, constipation, melena, hematochezia GENITOURINARY: Absent: dysuria, frequency, urgency, hesitancy, hematuria, flank pain, genital pain MUSCULOSKELETAL: Present: R leg pain. R rib pain Absent: myalgia, arthralgia, joint swelling SKIN: Absent: rash, itching, pallor HEMATOLOGIC/IMMUNOLOGIC: Absent: easy bleeding, easy bruising, lymphadenopathy, frequent infections ENDOCRINE: Absent: unexplained weight gain, unexplained weight loss, heat intolerance, cold intolerance NEUROLOGIC: Absent: headache, focal weakness or paresthesias, dizziness, unsteady gait, seizure, mental status changes, bladder or bowel incontinence PSYCHIATRIC: Absent: anxiety, depression, suicidal or homicidal ideation, hallucinations. Is the patient limited Gambian proficient: No *Physical Exam - Vital Signs Last Vital Signs Temp Pulse Resp BP Pulse Ox 98.3 F 80 20 140/85 98 05/03/18 15:18 05/03/18 15:18 05/03/18 15:18 05/03/18 15:18 05/03/18 15:18 - Physical Exam Comments: 05/03/18 19:05 GENERAL: Well developed, well nourished. Awake and alert. No acute distress. HEENT: Normocephalic, atraumatic. PERRLA, EOMI. No conjunctival pallor. Sclera are non- icteric. Moist mucous membranes. Oropharynx is clear. NECK: Supple. Full ROM. No JVD. Carotid pulses 2+ and symmetric, without bruits. No thyromegaly. No lymphadenopathy. CARDIOVASCULAR: Regular rate and rhythm. No murmurs, rubs, or gallops. Distal pulses are 2+ and symmetric. PULMONARY: No evidence of respiratory distress. Lungs clear to auscultation bilaterally. No wheezing, rales or rhonchi. ABDOMINAL: Soft. Non-tender. Non-distended. No rebound or guarding. No organomegaly. Normoactive bowel sounds. MUSCULOSKELETAL R leg appears shortened and externally rotated. TTP of the R pelvis and R lower rips. Strength decreased 4/5 on the R side. No bony deformities or tenderness. No CVA tenderness. EXTREMITIES: No cyanosis. No clubbing. No edema. No calf tenderness. SKIN: Warm and dry. Normal capillary refill. No rashes. No jaundice. NEUROLOGICAL: Alert, awake, appropriate. Cranial nerves 2-12 intact. No deficits to light touch and temperature in face, upper extremities and lower extremities. No motor deficits in the in face, upper extremities and lower extremities. Normoreflexic in the upper and lower extremities. Normal speech. Toes are down- going bilaterally. Gait is normal without ataxia. PSYCHIATRIC: Cooperative. Good eye contact. Appropriate mood and affect. Moderate Sedation - Procedure Monitoring Vital Signs: Procedure Monitoring Vital Signs Temperature 98.3 F 05/03/18 15:18 Pulse Rate 80 05/03/18 15:18 Respiratory Rate 20 05/03/18 15:18 Blood Pressure 140/85 05/03/18 15:18 O2 Sat by Pulse Oximetry (%) 98 05/03/18 15:18 ED Treatment Course - LABORATORY CBC & Chemistry Diagram: 05/05/18 05:35 05/05/18 05:35 - ADDITIONAL ORDERS Additional order review: Laboratory Results 05/03/18 05/03/18 05/03/18 13:38 13:38 13:38 PT with INR 12.40 INR 1.05 Sodium Cancelled Potassium Cancelled Chloride Cancelled Carbon Dioxide Cancelled Anion Gap Cancelled BUN Cancelled Creatinine Cancelled Creat Clearance w eGFR Cancelled Random Glucose Cancelled Calcium Cancelled Total Bilirubin Cancelled AST Cancelled ALT Cancelled Alkaline Phosphatase Cancelled Creatine Kinase Cancelled Troponin I Cancelled Total Protein Cancelled Albumin Cancelled Blood Type Cancelled Antibody Screen Cancelled 05/03/18 13:38 RBC 4.50 MCV 84.0 MCHC 32.8 RDW 14.2 MPV 8.0 Neutrophils % 70.4 Lymphocytes % 14.5 D Monocytes % 11.9 H Eosinophils % 2.2 Basophils % 1.0 - Medications Given in the ED: ED Medications Discontinued Medications Generic Name Dose Route Start Last Admin Trade Name Jeannette PRN Reason Stop Dose Admin Morphine Sulfate 2 mg 05/03/18 13:59 05/03/18 14:00 Morphine Injection - IVPUSH 05/03/18 14:00 2 mg ONCE ONE Administration Medical Decision Making - Medical Decision Making 05/03/18 19:11 Patient is an 88-year-old female past medical history of CVA with residual right -sided weakness, hypertension, hyperlipidemia, CAD who presents to the emergency department today for a fall out of bed at the long-term. On exam patient tenderness to the right hip. Trauma panel ordered. Head CT, neck CT, abdomen and pelvis CT and chest CT showed no fractures at this time. Hip x-ray is also negative for fracture. Hip pain may be due to osteoarthritis. Reduce strength on exam may be due to old residual weakness from her CVA. Lab work is notable for hyponatremia at 125, a K I at 2.6 creatinine. Baseline creatinine 1.8. Potassium 5.9. Pending urine. Call placed to Dr. Alberts for admission. Currently pending call back. Sign out given to JAKOB Johnson. *DC/Admit/Observation/Transfer Diagnosis at time of Disposition: Hyperkalemia, Hyponatremia, Chronic kidney disease Acute renal failure (ARF) Qualifiers: Acute renal failure type: unspecified Qualified Code(s): N17.9 - Acute kidney failure, unspecified - Discharge Dispostion Condition at time of disposition: Fair - Referrals - Patient Instructions - Post Discharge Activity
[2018-05-03 16:25] LABS: ALBUMIN 2.8 g/dl (3.4-5.0); ALK PHOS 76 U/L (45-117); ANION GAP 9 MMOL/L (8-16); BILIRUBIN,TOTAL 0.5 mg/dL (0.2-1); BLOOD UREA NITROGEN 61 mg/dL (7-18); CALCIUM 9.5 mg/dL (8.5-10.1); CHLORIDE 94 mmol/L (98-107); CO2 22 mmol/L (21-32); CREATININE 2.6 mg/dL (0.55-1.3); GLUCOSE,RANDOM 107 mg/dL (74-106); POTASSIUM 5.9 mmol/L (3.5-5.1); SGOT/AST 17 U/L (15-37); SGPT/ALT 28 U/L (13-61); SODIUM 125 mmol/L (136-145); TOT PROT 6.5 g/dl (6.4-8.2)
--- NOTE | 2018-05-03 20:39 | PDOC ---
*Physical Exam - Vital Signs Last Vital Signs Temp Pulse Resp BP Pulse Ox 98.3 F 80 20 140/85 98 05/03/18 15:18 05/03/18 15:18 05/03/18 15:18 05/03/18 15:18 05/03/18 15:18 - Physical Exam Respiratory/Chest: positive: Lungs Clear, Normal Breath Sounds. negative: Respiratory Distress, Accessory Muscle Use Cardiovascular: positive: Regular Rhythm, Regular Rate, S1, S2. negative: Murmur Extremity: positive: Normal Inspection, Tender (over right hip) ED Treatment Course - LABORATORY CBC & Chemistry Diagram: 05/04/18 15:34 05/04/18 15:34 - ADDITIONAL ORDERS Additional order review: Laboratory Results 05/03/18 05/03/18 05/03/18 15:50 15:50 13:38 PT with INR INR Sodium 125 L Potassium 5.9 H Chloride 94 L Carbon Dioxide 22 Anion Gap 9 BUN 61 H Creatinine 2.6 H Creat Clearance w eGFR 17.45 Random Glucose 107 H Calcium 9.5 Total Bilirubin 0.5 AST 17 ALT 28 Alkaline Phosphatase 76 Creatine Kinase 50 Troponin I 0.04 Total Protein 6.5 Albumin 2.8 L Blood Type Cancelled Antibody Screen Cancelled 05/03/18 05/03/18 13:38 13:38 PT with INR 12.40 INR 1.05 Sodium Cancelled Potassium Cancelled Chloride Cancelled Carbon Dioxide Cancelled Anion Gap Cancelled BUN Cancelled Creatinine Cancelled Creat Clearance w eGFR Cancelled Random Glucose Cancelled Calcium Cancelled Total Bilirubin Cancelled AST Cancelled ALT Cancelled Alkaline Phosphatase Cancelled Creatine Kinase Cancelled Troponin I Cancelled Total Protein Cancelled Albumin Cancelled Blood Type Antibody Screen 05/03/18 13:38 RBC 4.50 MCV 84.0 MCHC 32.8 RDW 14.2 MPV 8.0 Neutrophils % 70.4 Lymphocytes % 14.5 D Monocytes % 11.9 H Eosinophils % 2.2 Basophils % 1.0 - Medications Given in the ED: ED Medications Discontinued Medications Generic Name Dose Route Start Last Admin Trade Name Freq PRN Reason Stop Dose Admin Morphine Sulfate 2 mg 05/03/18 13:59 05/03/18 14:00 Morphine Injection - IVPUSH 05/03/18 14:00 2 mg ONCE ONE Administration Medical Decision Making - Medical Decision Making 05/03/18 20:42 Received sign out from FRED nichols no. Briefly this is an 88-year-old woman past medical history of NIDDM, hypertension , hyperlipidemia, CAD, CVA with right-sided residual weakness was sent to the emergency department from care home facility status post fall from her bed while being changed this morning. Patient with right hip pain at time of presentation. CAT scans and x-rays revealed no acute fractures to the hip or lower extremity. Laboratory testing was notable for sodium of 125, creatinine 2.6 up from a baseline of 1.8- 6 weeks ago and potassium of 5.9. Patient is pending return call from Dr. Alberts. No return call from Dr. Alberts. Dr. Whitaker contacted for admission. Dr. Whitaker accepts patient for inpatient admission to medical surgical. *DC/Admit/Observation/Transfer Diagnosis at time of Disposition: Hyperkalemia, Hyponatremia, Chronic kidney disease Acute renal failure (ARF) Qualifiers: Acute renal failure type: unspecified Qualified Code(s): N17.9 - Acute kidney failure, unspecified - Discharge Dispostion Condition at time of disposition: Fair Decision to Admit order: Yes - Referrals - Patient Instructions - Post Discharge Activity
[2018-05-04] MEDS ORDERED: morphine CARPU-JECT 2 MG/1 ML DISP.SYRIN IVPUSH ONE (04:15)
[2018-05-04] MEDS ORDERED: MORPHINE SULFATE 2 MG/ML VIAL ONE (04:35)
--- NOTE | 2018-05-04 11:27 | EKG ---
Test Reason : Blood Pressure : / mmHG Vent. Rate : 073 BPM Atrial Rate : 073 BPM P-R Int : 162 ms QRS Dur : 100 ms QT Int : 396 ms P-R-T Axes : 059 -11 075 degrees QTc Int : 436 ms NORMAL SINUS RHYTHM NORMAL ECG WHEN COMPARED WITH ECG OF 20-APR-2018 13:06, PREMATURE VENTRICULAR COMPLEXES ARE NO LONGER PRESENT VENT. RATE HAS DECREASED BY 37 BPM Confirmed by NISA OLSON, REBECA ([id number]) on 05/04/2018 11:27:17 AM Referred By: Confirmed By:REBECA PAULA MD
[2018-05-04] MEDS ORDERED: NIFEdipine E.R. 30 MG TABLET (FP) PO SCH (14:45)
[2018-05-04] MEDS: CEFTRIAXONE 1 GM in DEXTROSE 5%-WATER - 50 ML IVPB SCH (15:05)
[2018-05-04] MEDS ORDERED: cefTRIAXone SODIUM 1 GM VIAL ONE (15:30)
[2018-05-04] MEDS ORDERED: DEXTROSE 5%-WATER - 50 ML IVPB ONE (15:30)
[2018-05-04 15:50] LABS: BASO % 0.7 % (0-2.0); HEMATOCRIT 37.7 % (32.4-45.2); HEMOGLOBIN 12.2 GM/dL (10.7-15.3); LYMPH % 12.5 % (8-40); MCH 27.2 pg (25.7-33.7); MCHC 32.3 g/dl (32.0-36.0); MEAN CELL VOLUME 84.1 fl (80-96); MEAN PLT VOLUME 7.8 fl (7.5-11.1); MONO % 10.9 % (3.8-10.2); NEUT % 72.9 % (42.8-82.8); PLATELET COUNT 437 K/MM3 (134-434); RBC 4.48 M/mm3 (3.60-5.2); RDW 14.5 % (11.6-15.6); WHITE BLOOD COUNT 13.1 K/mm3 (4.0-10.0)
[2018-05-04 16:09] LABS: ALBUMIN 2.9 g/dl (3.4-5.0); ALK PHOS 75 U/L (45-117); ANION GAP 8 MMOL/L (8-16); BILIRUBIN,TOTAL 0.7 mg/dL (0.2-1); BLOOD UREA NITROGEN 59 mg/dL (7-18); CALCIUM 9.6 mg/dL (8.5-10.1); CHLORIDE 96 mmol/L (98-107); CO2 22 mmol/L (21-32); CREATININE 2.8 mg/dL (0.55-1.3); GLUCOSE,RANDOM 149 mg/dL (74-106); POTASSIUM 5.7 mmol/L (3.5-5.1); SGOT/AST 16 U/L (15-37); SGPT/ALT 26 U/L (13-61); SODIUM 127 mmol/L (136-145); TOT PROT 6.6 g/dl (6.4-8.2)
--- NOTE | 2018-05-04 16:33 | CON.ID ---
Consult Consult Specialty:: infectious diseases Referred by:: Reason for Consultation:: r/o uti,fall,leukocytosis - History of Present Illness Chief Complaint: fall and shaking History of Present Illness: 88-year-old woman past medical history of NIDDM, hypertension, hyperlipidemia, CAD, CVA with right-sided residual weakness was sent to the emergency department from longterm facility status post fall from her bed while being changed this morning. Patient with right hip pain at time of presentation. CAT scans and x-rays revealed no acute fractures to the hip or lower extremity. 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: CVA (Residual rt sided weakness) Cardio/Vascular: Yes: CAD, CHF (chronic diastolic ), HTN, Hyperlipdemia, Other ( Carotid atheromatous disease) Gastrointestinal: Yes: Peptic Ulcer Disease Renal/: Yes: Renal Inusuff Musculoskeletal: Yes: Osteoarthritis Rheumatology: Yes: Other (OA) Endocrine: Yes: Diabetes Mellitus - Alcohol/Substance Use Hx Alcohol Use: No - Smoking History Smoking history: Never smoked Have you smoked in the past 12 months: No Aproximately how many cigarettes per day: 0 - Social History Usual Living Arrangement: With Child ADL: Independent History of Recent Travel: No Home Medications - Allergies Allergies/Adverse Reactions: Allergies Allergy/AdvReac Type Severity Reaction Status Date / Time No Known Allergies Allergy Verified 05/03/18 13:15 - Home Medications Home Medications: Ambulatory Orders Clopidogrel Bisulfate [Plavix] 75 mg PO DAILY 04/20/18 Linagliptin [Tradjenta] 5 mg PO DAILY 04/20/18 Metoprolol Succinate [Toprol Xl] 25 mg PO DAILY 04/20/18 Nifedipine ER [Procardia XL -] 30 mg PO DAILY 04/20/18 Olmesartan Medoxomil [Benicar] 20 mg PO DAILY 04/20/18 Rosuvastatin [Crestor -] 10 mg PO DAILY 04/20/18 Amoxicillin/Potassium Clav [Augmentin 875-125 Tablet] 1 each PO BID #10 tablet 04/24/18 Pantoprazole Sodium [Protonix -] 40 mg PO DAILY #30 tablet.ec 04/24/18 Review of Systems - Review of Systems Constitutional: reports: No Symptoms Eyes: reports: No Symptoms HENT: reports: No Symptoms Neck: reports: No Symptoms Cardiovascular: reports: No Symptoms Respiratory: reports: No Symptoms Gastrointestinal: reports: No Symptoms Genitourinary: reports: No Symptoms Musculoskeletal: reports: No Symptoms Integumentary: reports: No Symptoms Neurological: reports: No Symptoms Endocrine: reports: No Symptoms Hematology/Lymphatic: reports: No Symptoms Psychiatric: reports: No Symptoms Physical Exam Vital Signs: Vital Signs Temperature 97.9 F 05/04/18 11:31 Pulse Rate 81 05/04/18 11:31 Respiratory Rate 20 05/04/18 11:31 Blood Pressure 106/59 L 05/04/18 11:31 O2 Sat by Pulse Oximetry (%) 100 05/04/18 11:31 Constitutional: Yes: Well Nourished, No Distress, Calm Eyes: Yes: Conjunctiva Clear HENT: Yes: Atraumatic, Normocephalic Cardiovascular: Yes: Regular Rate and Rhythm Respiratory: Yes: Regular, CTA Bilaterally Gastrointestinal: Yes: Normal Bowel Sounds, Soft Musculoskeletal: Yes: WNL Extremities: Yes: Other Neurological: Yes: Alert, Oriented Psychiatric: Yes: Alert, Oriented Labs: CBC, BMP 05/04/18 15:34 05/04/18 15:34 Imaging - Results X-ray: Report Reviewed, Image Reviewed Cat Scan: Report Reviewed, Image Reviewed Assessment/Plan Assessment/Plan Problem List - Problems (1) leukocytosis (2) CAD (coronary artery disease) Code(s): I25.10 - ATHSCL HEART DISEASE OF [place] CORONARY ARTERY W/O ANG PCTRS (3) HTN (hypertension) Code(s): I10 - ESSENTIAL (PRIMARY) HYPERTENSION (4) Chronic kidney disease Code(s): N18.9 - CHRONIC KIDNEY DISEASE, UNSPECIFIED Qualifiers: Chronic kidney disease stage: unspecified stage Qualified Code(s): N18.9 - Chronic kidney disease, unspecified (5) Diabetes Code(s): E11.9 - TYPE 2 DIABETES MELLITUS WITHOUT COMPLICATIONS (6) HLD (hyperlipidemia) Code(s): E78.5 - HYPERLIPIDEMIA, UNSPECIFIED (7) Osteoarthritis Code(s): M19.90 - UNSPECIFIED OSTEOARTHRITIS, UNSPECIFIED SITE Qualifiers: Osteoarthritis location: knee Osteoarthritis type: unspecified Laterality : right Qualified Code(s): M17.11 - Unilateral primary osteoarthritis, right knee (8) CHF (congestive heart failure) Code(s): I50.9 - HEART FAILURE, UNSPECIFIED Qualifiers: Heart failure type: unspecified Heart failure chronicity: unspecified Qualified Code(s): I50.9 - Heart failure, unspecified 9 uti plan will await for cx results to be back patient started on ceftriaxone will continue the same monitor wbc rest as per the team
[2018-05-04] MEDS: CLOPIDOGREL BISULFATE 75 MG TABLET (FP) PO SCH (16:45)
[2018-05-04] MEDS: metoPROLOL SUCCINATE 25 MG TAB.SR.24H (FP) PO SCH (17:05)
[2018-05-04] MEDS: sitaGLIPtin PHOSPHATE 25 MG TABLET (FP) PO SCH (17:13)
[2018-05-04 17:30] LABS: URINE APPEARANCE CLEAR; URINE BILIRUBIN NEGATIVE (<2.0 mg/dL); URINE COLOR LTYELLOW; URINE GLUCOSE (UA) 1+ (NEGATIVE); URINE KETONE NEGATIVE (NEGATIVE); URINE LEUK ESTERASE NEGATIVE (NEGATIVE); URINE NITRITE NEGATIVE (NEGATIVE); URINE PROTEIN 2+ (NEGATIVE); URINE UROBILINOGEN NEGATIVE mg/dL (0.2-1.0)
[2018-05-04 17:38] LABS: EPI CELLS RARE /HPF (FEW)
--- NOTE | 2018-05-04 19:37 | HP ---
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 (Residual rt sided weakness) Cardiovascular: Yes: CAD, CHF (chronic diastolic ), HTN, Hyperlipdemia, Other ( Carotid atheromatous disease) Gastrointestinal: Yes: Peptic Ulcer Disease Renal/: Yes: Renal Inusuff Musculoskeletal: Yes: Osteoarthritis Rheumatology: Yes: Other (OA) Endocrine: Yes: Diabetes Mellitus - Smoking History Smoking history: Never smoked Have you smoked in the past 12 months: No Aproximately how many cigarettes per day: 0 - Alcohol/Substance Use Hx Alcohol Use: No - Social History ADL: Independent History of Recent Travel: No Home Medications - Allergies Allergies/Adverse Reactions: Allergies Allergy/AdvReac Type Severity Reaction Status Date / Time No Known Allergies Allergy Verified 05/03/18 13:15 - Home Medications Home Medications: Ambulatory Orders Clopidogrel Bisulfate [Plavix] 75 mg PO DAILY 04/20/18 Linagliptin [Tradjenta] 5 mg PO DAILY 04/20/18 Metoprolol Succinate [Toprol Xl] 25 mg PO DAILY 04/20/18 Nifedipine ER [Procardia XL -] 30 mg PO DAILY 04/20/18 Olmesartan Medoxomil [Benicar] 20 mg PO DAILY 04/20/18 Rosuvastatin [Crestor -] 10 mg PO DAILY 04/20/18 Amoxicillin/Potassium Clav [Augmentin 875-125 Tablet] 1 each PO BID #10 tablet 04/24/18 Pantoprazole Sodium [Protonix -] 40 mg PO DAILY #30 tablet.ec 04/24/18 Physical Examination Vital Signs: Vital Signs Temperature 97.9 F 05/04/18 15:45 Pulse Rate 96 H 05/04/18 16:05 Respiratory Rate 18 05/04/18 16:00 Blood Pressure 99/54 L 05/04/18 16:05 O2 Sat by Pulse Oximetry (%) 100 05/04/18 11:31 Labs: CBC, BMP 05/04/18 15:34 05/04/18 15:34
[2018-05-04] MEDS: ROSUVASTATIN CA 10 MG TABLET (FP) PO SCH (21:05)
[2018-05-04] MEDS: HEPARIN NA (PORCINE) 5,000 UNITS/ML 1ML VIAL SQ SCH (22:00)
[2018-05-05 06:26] LABS: BASO % 0.6 % (0-2.0); EOS % 3.5 % (0-4.5); HEMATOCRIT 36.4 % (32.4-45.2); HEMOGLOBIN 11.8 GM/dL (10.7-15.3); LYMPH % 13.2 % (8-40); MCH 27.3 pg (25.7-33.7); MCHC 32.5 g/dl (32.0-36.0); MEAN PLT VOLUME 8.2 fl (7.5-11.1); MONO % 11.7 % (3.8-10.2); PLATELET COUNT 403 K/MM3 (134-434); RBC 4.33 M/mm3 (3.60-5.2); WHITE BLOOD COUNT 11.7 K/mm3 (4.0-10.0)
[2018-05-05] MEDS: HEPARIN NA (PORCINE) 5,000 UNITS/ML 1ML VIAL SQ SCH ×3 (06:40→21:46)
[2018-05-05] MEDS: sitaGLIPtin PHOSPHATE 25 MG TABLET (FP) PO SCH (06:40)
[2018-05-05 07:08] LABS: ALBUMIN 2.7 g/dl (3.4-5.0); ALK PHOS 66 U/L (45-117); ANION GAP 8 MMOL/L (8-16); BILIRUBIN,TOTAL 0.7 mg/dL (0.2-1); BLOOD UREA NITROGEN 59 mg/dL (7-18); CHLORIDE 97 mmol/L (98-107); CO2 22 mmol/L (21-32); CREATININE 2.7 mg/dL (0.55-1.3); GLUCOSE,RANDOM 119 mg/dL (74-106); SGOT/AST 15 U/L (15-37); SGPT/ALT 23 U/L (13-61); SODIUM 127 mmol/L (136-145); TOT PROT 6.4 g/dl (6.4-8.2)
[2018-05-05] MEDS ORDERED: DEXTROSE 5%-WATER - 50 ML IVPB ONE (08:59)
[2018-05-05] MEDS ORDERED: cefTRIAXone SODIUM 1 GM VIAL ONE (08:59)
[2018-05-05] MEDS ORDERED: CALCIUM GLUCONATE 10% - 1,000 MG/10 ML VIAL IVPB ONE (09:10)
[2018-05-05] MEDS ORDERED: SODIUM POLYSTYRENE SULFONATE 15 GM/60 ML BOTTLE PO ONE (09:15)
[2018-05-05] MEDS: metoPROLOL SUCCINATE 25 MG TAB.SR.24H (FP) PO SCH (09:31)
[2018-05-05] MEDS: PANTOPRAZOLE 40 MG TABLET (FP) PO SCH (09:31)
[2018-05-05] MEDS: CEFTRIAXONE 1 GM in DEXTROSE 5%-WATER - 50 ML IVPB SCH (09:31)
[2018-05-05] MEDS: CLOPIDOGREL BISULFATE 75 MG TABLET (FP) PO SCH (09:31)
[2018-05-05] MEDS ORDERED: VALSARTAN 80 MG TABLET (UD) PO SCH (10:00)
--- NOTE | 2018-05-05 10:13 | CONSULT ---
Consult - text type - Consultation Consultation Note: Renal Consult for JACK on CKD, Hyperkalemia, Hyponatremia This is a 88 year old woman with hx of CKD (baseline Cr ~1.6), Hypertension, DM type 2, CAD, CVA who presented [facility] the [facility] with [facility] and found to have JACK with hyperkalemia and hyponatremia. Son was the bedside and provided the history. Pt had a fall from bed in the NH when she was being turned. No acute complaints today. Denies any pain, sob, abd pain, fever, chills. Reports good appetite, denies any N/V/D. Pt was on ARB as an outpatient. No flank pain. No dysuria, hematuria. Denies any NSAID use. PMhx: as above Allergies: NKDA Family Hx: NC Social Hx: No T/A/D ROS: as per HPI, all other pertinent ros negative Home Medications Medication Instructions Recorded Clopidogrel Bisulfate [Plavix] 75 mg PO DAILY 04/20/18 Linagliptin [Tradjenta] 5 mg PO DAILY 04/20/18 Metoprolol Succinate [Toprol Xl] 25 mg PO DAILY 04/20/18 Nifedipine ER [Procardia XL -] 30 mg PO DAILY 04/20/18 Olmesartan Medoxomil [Benicar] 20 mg PO DAILY 04/20/18 Rosuvastatin [Crestor -] 10 mg PO DAILY 04/20/18 Amoxicillin/Potassium Clav 1 each PO BID #10 tablet 04/24/18 [Augmentin 875-125 Tablet] Pantoprazole Sodium [Protonix -] 40 mg PO DAILY #30 tablet.ec 04/24/18 Vital Signs Temperature 98 F 05/05/18 06:39 Pulse Rate 89 05/05/18 06:39 Respiratory Rate 20 05/05/18 06:39 Blood Pressure 121/54 L 05/05/18 06:39 O2 Sat by Pulse Oximetry (%) 100 05/04/18 11:31 Intake & Output 05/02/18 05/03/18 05/04/18 05/05/18 23:59 23:59 23:59 23:59 Intake Total 300 Balance 300 Weight 68.946 kg 68.946 kg NAD awake and alert neck supple, no JVD RRR, No M/R CTA, no rales or wheeze soft NT/ND no Le edema, clubbing or cyanosis CBC, BMP 12/31/18 05:35 05/05/18 05:35 Current Medications Clopidogrel Bisulfate (Plavix -) 75 mg PO DAILY [facility] Last Admin: 05/05/18 09:31 Dose: 75 mg Heparin Sodium (Porcine) (Heparin -) 5,000 unit SQ TID [facility] Last Admin: 05/05/18 06:40 Dose: 5,000 unit Ceftriaxone Sodium 1 gm/ (Dextrose) 50 mls @ 100 mls/hr IVPB DAILY [facility]; Protocol Last Admin: 05/05/18 09:31 Dose: 100 mls/hr Metoprolol Succinate (Toprol Xl -) 25 mg PO DAILY [facility] Last Admin: 05/05/18 09:31 Dose: 25 mg Nifedipine (Procardia Xl -) 30 mg PO DAILY [facility] Last Admin: 05/04/18 17:05 Dose: Not Given Pantoprazole Sodium (Protonix -) 40 mg PO DAILY [facility] Last Admin: 05/05/18 09:31 Dose: 40 mg Rosuvastatin Calcium (Crestor -) 10 mg PO HS [facility] Last Admin: 05/04/18 21:05 Dose: 10 mg Sitagliptin Phosphate (Januvia -) 25 mg PO DAILY@0700 [facility] Last Admin: 05/05/18 06:40 Dose: 25 mg 88 year old woman with hx of CKD (baseline Cr ~1.6), Hypertension, DM type 2, CAD, CVA who presented from the [facility] with fall and found to have JACK with hyperkalemia and hyponatremia. #JACK on CKD likely due to renal hypoprofusion in setting from hypovolemia +/- ARB vs. AIN (less likely) #Hyperkalemia in setting of JACK #Susepcted Hypovolemic Hyponatremia #s/p Fall #Hypertension #DM Type 2 Check urine studies for FeNa, FeUrea Renal US to r/o obstruction in urine flow check EKG this am to access for T - wave changes Kayexlate 30g PO x 1, Calcium gluconate 1g IVPB Start NS at 100cc per hour x 24 hours hold ARB, hold CCB for now CK is WNL so unlikely rhabdomyolysis Trend BP closely continue oral DM meds Thank you will follow Javon Cota DO
[2018-05-05] MEDS ORDERED: SODIUM CHLORIDE 1,000 ML IV SCH (10:30)
[2018-05-05 10:50] LABS: ANISOCYTOSIS 2+; MACROCYTOSIS 0; PLATELET ESTIMATE NORMAL
--- NOTE | 2018-05-05 12:17 | EKG ---
Test Reason : Blood Pressure : / mmHG Vent. Rate : 092 BPM Atrial Rate : 092 BPM P-R Int : 172 ms QRS Dur : 104 ms QT Int : 362 ms P-R-T Axes : 054 -06 080 degrees QTc Int : 447 ms SINUS RHYTHM WITH OCCASIONAL PREMATURE VENTRICULAR COMPLEXES OTHERWISE NORMAL ECG WHEN COMPARED WITH ECG OF 03-MAY-2018 13:34, PREMATURE VENTRICULAR COMPLEXES ARE NOW PRESENT Confirmed by DAMION OLSON, AINSLEY ([id number]) on 05/05/2018 12:16:55 PM Referred By: Confirmed By:AINSLEY BRUNO MD
[2018-05-05 12:26] LABS: OSMOLALITY,SERUM 283 mosm/kg (278-305)
--- NOTE | 2018-05-05 17:23 | PN ---
Progress Note, Physician History of Present Illness: improving family in room shaking has stopped - Current Medication List Current Medications: Active Medications Clopidogrel Bisulfate (Plavix -) 75 mg PO DAILY [facility] Last Admin: 05/05/18 09:31 Dose: 75 mg Heparin Sodium (Porcine) (Heparin -) 5,000 unit SQ TID [facility] Last Admin: 05/05/18 14:35 Dose: 5,000 unit Ceftriaxone Sodium 1 gm/ (Dextrose) 50 mls @ 100 mls/hr IVPB DAILY [facility]; Protocol Last Admin: 05/05/18 09:31 Dose: 100 mls/hr Sodium Chloride (Normal Saline -) 1,000 mls @ 100 mls/hr IV ASDIR [facility] Stop: 05/06/18 10:29 Last Admin: 05/05/18 11:16 Dose: 100 mls/hr Metoprolol Succinate (Toprol Xl -) 25 mg PO DAILY [facility] Last Admin: 05/05/18 09:31 Dose: 25 mg Nifedipine (Procardia Xl -) 30 mg PO DAILY [facility] Last Admin: 05/04/18 17:05 Dose: Not Given Pantoprazole Sodium (Protonix -) 40 mg PO DAILY [facility] Last Admin: 05/05/18 09:31 Dose: 40 mg Rosuvastatin Calcium (Crestor -) 10 mg PO HS [facility] Last Admin: 05/04/18 21:05 Dose: 10 mg Sitagliptin Phosphate (Januvia -) 25 mg PO DAILY@0700 [facility] Last Admin: 05/05/18 06:40 Dose: 25 mg - Objective Vital Signs: Vital Signs Temperature 97.9 F 05/05/18 17:00 Pulse Rate 87 05/05/18 17:00 Respiratory Rate 20 05/05/18 17:00 Blood Pressure 158/71 05/05/18 17:00 O2 Sat by Pulse Oximetry (%) 100 05/04/18 11:31 Constitutional: Yes: No Distress, Calm, Obese Cardiovascular: Yes: S1, S2 Respiratory: Yes: Regular, CTA Bilaterally Gastrointestinal: Yes: Normal Bowel Sounds, Soft Musculoskeletal: Yes: WNL Extremities: Yes: WNL Neurological: Yes: Alert, Oriented Psychiatric: Yes: Alert, Oriented Labs: CBC, BMP 05/05/18 05:35 05/05/18 15:05 INR, PTT INR 1.05 (0.83-1.09) 12/29/18 13:38 Assessment/Plan Assessment/Plan Problem List - Problems (1) leukocytosis (2) CAD (coronary artery disease) Code(s): I25.10 - ATHSCL HEART DISEASE OF [place] CORONARY ARTERY W/O ANG PCTRS (3) HTN (hypertension) Code(s): I10 - ESSENTIAL (PRIMARY) HYPERTENSION (4) Chronic kidney disease Code(s): N18.9 - CHRONIC KIDNEY DISEASE, UNSPECIFIED Qualifiers: Chronic kidney disease stage: unspecified stage Qualified Code(s): N18.9 - Chronic kidney disease, unspecified (5) Diabetes Code(s): E11.9 - TYPE 2 DIABETES MELLITUS WITHOUT COMPLICATIONS (6) HLD (hyperlipidemia) Code(s): E78.5 - HYPERLIPIDEMIA, UNSPECIFIED (7) Osteoarthritis Code(s): M19.90 - UNSPECIFIED OSTEOARTHRITIS, UNSPECIFIED SITE Qualifiers: Osteoarthritis location: knee Osteoarthritis type: unspecified Laterality : right Qualified Code(s): M17.11 - Unilateral primary osteoarthritis, right knee (8) CHF (congestive heart failure) Code(s): I50.9 - HEART FAILURE, UNSPECIFIED Qualifiers: Heart failure type: unspecified Heart failure chronicity: unspecified Qualified Code(s): I50.9 - Heart failure, unspecified 9 uti plan awaiting for cx to be back wbc trending down monitor rest as per the team nephro on case
--- NOTE | 2018-05-05 18:01 | PN ---
Progress Note, Physician - Current Medication List Current Medications: Active Medications Clopidogrel Bisulfate (Plavix -) 75 mg PO DAILY [facility] Last Admin: 05/05/18 09:31 Dose: 75 mg Heparin Sodium (Porcine) (Heparin -) 5,000 unit SQ TID [facility] Last Admin: 05/05/18 14:35 Dose: 5,000 unit Ceftriaxone Sodium 1 gm/ (Dextrose) 50 mls @ 100 mls/hr IVPB DAILY [facility]; Protocol Last Admin: 05/05/18 09:31 Dose: 100 mls/hr Sodium Chloride (Normal Saline -) 1,000 mls @ 100 mls/hr IV ASDIR [facility] Stop: 05/06/18 10:29 Last Admin: 05/05/18 11:16 Dose: 100 mls/hr Metoprolol Succinate (Toprol Xl -) 25 mg PO DAILY [facility] Last Admin: 05/05/18 09:31 Dose: 25 mg Nifedipine (Procardia Xl -) 30 mg PO DAILY [facility] Last Admin: 05/04/18 17:05 Dose: Not Given Pantoprazole Sodium (Protonix -) 40 mg PO DAILY [facility] Last Admin: 05/05/18 09:31 Dose: 40 mg Rosuvastatin Calcium (Crestor -) 10 mg PO HS [facility] Last Admin: 05/04/18 21:05 Dose: 10 mg Sitagliptin Phosphate (Januvia -) 25 mg PO DAILY@0700 [facility] Last Admin: 05/05/18 06:40 Dose: 25 mg - Objective Vital Signs: Vital Signs Temperature 97.9 F 05/05/18 17:00 Pulse Rate 87 05/05/18 17:00 Respiratory Rate 20 05/05/18 17:00 Blood Pressure 158/71 05/05/18 17:00 O2 Sat by Pulse Oximetry (%) 100 05/05/18 09:00 Labs: CBC, BMP 05/05/18 05:35 05/05/18 15:05 INR, PTT INR 1.05 (0.83-1.09) 05/03/18 13:38
[2018-05-05 20:43] LABS: ANION GAP 9 MMOL/L (8-16); BLOOD UREA NITROGEN 54 mg/dL (7-18); CHLORIDE 98 mmol/L (98-107); CO2 20 mmol/L (21-32); CREATININE 2.5 mg/dL (0.55-1.3); GLUCOSE,RANDOM 156 mg/dL (74-106); POTASSIUM 5.2 mmol/L (3.5-5.1); SODIUM 128 mmol/L (136-145)
[2018-05-05] MEDS: ROSUVASTATIN CA 10 MG TABLET (FP) PO SCH (21:46)
[2018-05-06] MEDS: HEPARIN NA (PORCINE) 5,000 UNITS/ML 1ML VIAL SQ SCH ×3 (05:54→22:41)
[2018-05-06] MEDS: sitaGLIPtin PHOSPHATE 25 MG TABLET (FP) PO SCH (06:30)
[2018-05-06 08:30] LABS: BASO % 0.6 % (0-2.0); EOS % 5.1 % (0-4.5); HEMATOCRIT 36.4 % (32.4-45.2); HEMOGLOBIN 11.7 GM/dL (10.7-15.3); LYMPH % 13.2 % (8-40); MCHC 32.1 g/dl (32.0-36.0); MEAN CELL VOLUME 84.1 fl (80-96); MEAN PLT VOLUME 8.8 fl (7.5-11.1); MONO % 10.6 % (3.8-10.2); NEUT % 70.5 % (42.8-82.8); PLATELET COUNT 373 K/MM3 (134-434); RBC 4.33 M/mm3 (3.60-5.2); RDW 14.1 % (11.6-15.6); WHITE BLOOD COUNT 11.3 K/mm3 (4.0-10.0)
[2018-05-06 08:57] LABS: ALBUMIN 2.7 g/dl (3.4-5.0); ALK PHOS 65 U/L (45-117); ANION GAP 8 MMOL/L (8-16); BILIRUBIN,TOTAL 0.4 mg/dL (0.2-1); BLOOD UREA NITROGEN 45 mg/dL (7-18); CALCIUM 9.3 mg/dL (8.5-10.1); CHLORIDE 101 mmol/L (98-107); CO2 21 mmol/L (21-32); CREATININE 2.1 mg/dL (0.55-1.3); GLUCOSE,RANDOM 112 mg/dL (74-106); MAGNESIUM 1.5 mg/dL (1.8-2.4); PHOSPHOROUS 3.8 mg/dL (2.5-4.9); POTASSIUM 5.1 mmol/L (3.5-5.1); SGOT/AST 16 U/L (15-37); SGPT/ALT 19 U/L (13-61); SODIUM 131 mmol/L (136-145); TOT PROT 6.2 g/dl (6.4-8.2)
[2018-05-06] MEDS ORDERED: cefTRIAXone SODIUM 1 GM VIAL ONE (10:00)
[2018-05-06] MEDS ORDERED: DEXTROSE 5%-WATER - 50 ML IVPB ONE ×3 (10:01→18:15)
[2018-05-06] MEDS: metoPROLOL SUCCINATE 25 MG TAB.SR.24H (FP) PO SCH (10:35)
[2018-05-06] MEDS: PANTOPRAZOLE 40 MG TABLET (FP) PO SCH (10:36)
[2018-05-06] MEDS: CLOPIDOGREL BISULFATE 75 MG TABLET (FP) PO SCH (10:36)
[2018-05-06] MEDS: CEFTRIAXONE 1 GM in DEXTROSE 5%-WATER - 50 ML IVPB SCH (10:37)
[2018-05-06 11:12] LABS: ANISOCYTOSIS 0; MACROCYTOSIS 0; PLATELET ESTIMATE NORMAL
[2018-05-06] MEDS ORDERED: amLODIPine BESYLATE 5 MG TABLET (FP) PO SCH (11:30)
--- NOTE | 2018-05-06 11:31 | PN ---
Progress Note (short form) - Note Progress Note: Renal follow up for JACK on CKD Pt seen and examined at the bedside no acute complaints no sob, cp, abd pain son at the bedside making urine Vital Signs Temperature 98.3 F 05/06/18 06:00 Pulse Rate 90 05/06/18 06:00 Respiratory Rate 20 05/06/18 06:00 Blood Pressure 162/77 05/06/18 06:00 O2 Sat by Pulse Oximetry (%) 100 05/05/18 21:00 Intake & Output 05/03/18 05/04/18 05/05/18 05/06/18 23:59 23:59 23:59 23:59 Intake Total 300 1400 Output Total 250 Balance 300 1150 Weight 68.946 kg 68.946 kg NAD awake and alert no LE edema CBC, BMP 05/06/18 06:23 05/06/18 06:23 Current Medications Amlodipine Besylate (Norvasc -) 5 mg PO DAILY [facility] Clopidogrel Bisulfate (Plavix -) 75 mg PO DAILY [facility] Last Admin: 05/06/18 10:36 Dose: 75 mg Heparin Sodium (Porcine) (Heparin -) 5,000 unit SQ TID [facility] Last Admin: 05/06/18 05:54 Dose: 5,000 unit Piperacillin Sod/Tazobactam (Sod 2.25 gm/ Dextrose) 50 mls @ 100 mls/hr IVPB Q8H-[facility]; Protocol Sodium Chloride (Normal Saline -) 1,000 mls @ 75 mls/hr IV ASDIR [facility] Stop: 05/07/18 11:29 Metoprolol Succinate (Toprol Xl -) 25 mg PO DAILY [facility] Last Admin: 05/06/18 10:35 Dose: 25 mg Pantoprazole Sodium (Protonix -) 40 mg PO DAILY [facility] Last Admin: 05/06/18 10:36 Dose: 40 mg Rosuvastatin Calcium (Crestor -) 10 mg PO HS [facility] Last Admin: 05/05/18 21:46 Dose: 10 mg Sitagliptin Phosphate (Januvia -) 25 mg PO DAILY@0700 [facility] Last Admin: 05/06/18 06:30 Dose: 25 mg 88 year old woman with hx of CKD (baseline Cr ~1.6), Hypertension, DM type 2, CAD, CVA who presented from the [place] with fall and found to have JACK with hyperkalemia and hyponatremia. #JACK on CKD likely due to renal hypoprofusion in setting from hypovolemia +/- ARB vs. AIN (less likely) #Hyperkalemia in setting of JACK #Susepcted Hypovolemic Hyponatremia #s/p Fall #Hypertension #DM Type 2 Urine studies consistent with volume depletion renal function improving with IVF will continue NS at 75cc per hour restart nifedpine ER 30mg Daily for BP control continue low K diet supplament Mg levels Javon Cota DO
[2018-05-06] MEDS ORDERED: MAGNESIUM SULF 50% (8.12 MEQ/2 ML-1 GM VIAL) IVPB ONE (11:35)
--- NOTE | 2018-05-06 11:38 | PN ---
Progress Note, Physician History of Present Illness: patient doing well wbc trending down urine cx noted awaiting for sensitivities and identification of one organism - Current Medication List Current Medications: Active Medications Clopidogrel Bisulfate (Plavix -) 75 mg PO DAILY [facility] Last Admin: 05/06/18 10:36 Dose: 75 mg Heparin Sodium (Porcine) (Heparin -) 5,000 unit SQ TID [facility] Last Admin: 05/06/18 05:54 Dose: 5,000 unit Piperacillin Sod/Tazobactam (Sod 2.25 gm/ Dextrose) 50 mls @ 100 mls/hr IVPB Q8H-IV [facility]; Protocol Sodium Chloride (Normal Saline -) 1,000 mls @ 75 mls/hr IV ASDIR [facility] Stop: 05/07/18 11:29 Magnesium Sulfate (Magnesium Sulfate) 2 gm IVPB ONCE ONE Stop: 05/06/18 11:36 Metoprolol Succinate (Toprol Xl -) 25 mg PO DAILY [facility] Last Admin: 05/06/18 10:35 Dose: 25 mg Nifedipine (Procardia Xl -) 30 mg PO DAILY [facility] Pantoprazole Sodium (Protonix -) 40 mg PO DAILY [facility] Last Admin: 05/06/18 10:36 Dose: 40 mg Rosuvastatin Calcium (Crestor -) 10 mg PO HS [facility] Last Admin: 05/05/18 21:46 Dose: 10 mg Sitagliptin Phosphate (Januvia -) 25 mg PO DAILY@0700 [facility] Last Admin: 05/06/18 06:30 Dose: 25 mg - Objective Vital Signs: Vital Signs Temperature 98.3 F 05/06/18 06:00 Pulse Rate 90 05/06/18 06:00 Respiratory Rate 20 05/06/18 06:00 Blood Pressure 162/77 05/06/18 06:00 O2 Sat by Pulse Oximetry (%) 100 05/05/18 21:00 Constitutional: Yes: No Distress, Calm Cardiovascular: Yes: S1, S2 Respiratory: Yes: Regular, CTA Bilaterally Gastrointestinal: Yes: Normal Bowel Sounds, Soft Musculoskeletal: Yes: WNL Extremities: Yes: WNL Neurological: Yes: Alert, Oriented Psychiatric: Yes: Alert, Oriented Labs: CBC, BMP 05/06/18 06:23 05/06/18 06:23 INR, PTT INR 1.05 (0.83-1.09) 05/03/18 13:38 Assessment/Plan Assessment/Plan Problem List - Problems (1) leukocytosis (2) CAD (coronary artery disease) Code(s): I25.10 - ATHSCL HEART DISEASE OF [place] CORONARY ARTERY W/O ANG PCTRS (3) HTN (hypertension) Code(s): I10 - ESSENTIAL (PRIMARY) HYPERTENSION (4) Chronic kidney disease Code(s): N18.9 - CHRONIC KIDNEY DISEASE, UNSPECIFIED Qualifiers: Chronic kidney disease stage: unspecified stage Qualified Code(s): N18.9 - Chronic kidney disease, unspecified (5) Diabetes Code(s): E11.9 - TYPE 2 DIABETES MELLITUS WITHOUT COMPLICATIONS (6) HLD (hyperlipidemia) Code(s): E78.5 - HYPERLIPIDEMIA, UNSPECIFIED (7) Osteoarthritis Code(s): M19.90 - UNSPECIFIED OSTEOARTHRITIS, UNSPECIFIED SITE Qualifiers: Osteoarthritis location: knee Osteoarthritis type: unspecified Laterality : right Qualified Code(s): M17.11 - Unilateral primary osteoarthritis, right knee (8) CHF (congestive heart failure) Code(s): I50.9 - HEART FAILURE, UNSPECIFIED Qualifiers: Heart failure type: unspecified Heart failure chronicity: unspecified Qualified Code(s): I50.9 - Heart failure, unspecified 9 uti plan still awaiting for one cx to be back will switch abx to zosyn await for sensitivities rest as per the team wbc trending down
[2018-05-06] MEDS ORDERED: PIPERACILLIN/TAZOBACTAM 2.25 GM VIAL IVPB ONE ×2 (12:03→18:15)
[2018-05-06] MEDS: PIPERACILLIN/TAZOB 2.25 GM 2.25 GM in DEXTROSE 5%-WATER - 50 ML IVPB SCH ×2 (12:13→18:29)
[2018-05-06] MEDS: NIFEdipine E.R. 30 MG TABLET (FP) PO SCH (12:13)
[2018-05-06] MEDS: SODIUM CHLORIDE 1,000 ML IV SCH (12:14)
[2018-05-06] MEDS: ROSUVASTATIN CA 10 MG TABLET (FP) PO SCH (22:41)
--- NOTE | 2018-05-06 22:59 | PN ---
Progress Note, Physician - Current Medication List Current Medications: Active Medications Clopidogrel Bisulfate (Plavix -) 75 mg PO DAILY [facility] Last Admin: 05/06/18 10:36 Dose: 75 mg Heparin Sodium (Porcine) (Heparin -) 5,000 unit SQ TID [facility] Last Admin: 05/06/18 22:41 Dose: 5,000 unit Piperacillin Sod/Tazobactam (Sod 2.25 gm/ Dextrose) 50 mls @ 100 mls/hr IVPB Q8H-[facility]; Protocol Last Admin: 05/06/18 18:29 Dose: 100 mls/hr Sodium Chloride (Normal Saline -) 1,000 mls @ 75 mls/hr IV ASDIR [facility] Stop: 05/07/18 11:29 Last Admin: 05/06/18 12:14 Dose: 75 mls/hr Metoprolol Succinate (Toprol Xl -) 25 mg PO DAILY [facility] Last Admin: 05/06/18 10:35 Dose: 25 mg Nifedipine (Procardia Xl -) 30 mg PO DAILY [facility] Last Admin: 05/06/18 12:13 Dose: 30 mg Pantoprazole Sodium (Protonix -) 40 mg PO DAILY [facility] Last Admin: 05/06/18 10:36 Dose: 40 mg Rosuvastatin Calcium (Crestor -) 10 mg PO HS [facility] Last Admin: 05/06/18 22:41 Dose: 10 mg Sitagliptin Phosphate (Januvia -) 25 mg PO DAILY@0700 [facility] Last Admin: 05/06/18 06:30 Dose: 25 mg - Objective Vital Signs: Vital Signs Temperature 97.9 F 05/06/18 22:00 Pulse Rate 75 05/06/18 22:00 Respiratory Rate 20 05/06/18 22:00 Blood Pressure 133/67 05/06/18 22:00 O2 Sat by Pulse Oximetry (%) 100 05/06/18 09:00 Labs: CBC, BMP 05/06/18 06:23 05/06/18 06:23 INR, PTT INR 1.05 (0.83-1.09) 05/03/18 13:38
[2018-05-07] MEDS ORDERED: DEXTROSE 5%-WATER - 50 ML IVPB ONE (02:08)
[2018-05-07] MEDS ORDERED: PIPERACILLIN/TAZOBACTAM 2.25 GM VIAL IVPB ONE (02:08)
[2018-05-07] MEDS: SODIUM CHLORIDE 1,000 ML IV SCH (02:30)
[2018-05-07] MEDS: PIPERACILLIN/TAZOB 2.25 GM 2.25 GM in DEXTROSE 5%-WATER - 50 ML IVPB SCH (02:30)
[2018-05-07] MEDS: HEPARIN NA (PORCINE) 5,000 UNITS/ML 1ML VIAL SQ SCH ×3 (06:14→21:28)
[2018-05-07] MEDS: sitaGLIPtin PHOSPHATE 25 MG TABLET (FP) PO SCH (06:14)
[2018-05-07 06:19] LABS: BASO % 0.7 % (0-2.0); EOS % 5.5 % (0-4.5); HEMATOCRIT 35.4 % (32.4-45.2); HEMOGLOBIN 11.6 GM/dL (10.7-15.3); LYMPH % 13.1 % (8-40); MCH 27.6 pg (25.7-33.7); MCHC 32.8 g/dl (32.0-36.0); MEAN CELL VOLUME 84.1 fl (80-96); MEAN PLT VOLUME 8.2 fl (7.5-11.1); MONO % 10.4 % (3.8-10.2); NEUT % 70.3 % (42.8-82.8); PLATELET COUNT 369 K/MM3 (134-434); RDW 14.2 % (11.6-15.6); WHITE BLOOD COUNT 10.8 K/mm3 (4.0-10.0)
[2018-05-07 06:50] LABS: ALBUMIN 2.6 g/dl (3.4-5.0); ALK PHOS 63 U/L (45-117); ANION GAP 7 MMOL/L (8-16); BILIRUBIN,TOTAL 0.4 mg/dL (0.2-1); BLOOD UREA NITROGEN 35 mg/dL (7-18); CALCIUM 8.9 mg/dL (8.5-10.1); CHLORIDE 101 mmol/L (98-107); CO2 22 mmol/L (21-32); CREATININE 1.8 mg/dL (0.55-1.3); GLUCOSE,RANDOM 114 mg/dL (74-106); POTASSIUM 4.6 mmol/L (3.5-5.1); SGOT/AST 16 U/L (15-37); SGPT/ALT 18 U/L (13-61); SODIUM 130 mmol/L (136-145)
[2018-05-07] MEDS ORDERED: MEROPENEM 1 GM in DEXTROSE 5%-WATER 100 ML IVPB ONE (09:45)
[2018-05-07] MEDS: CLOPIDOGREL BISULFATE 75 MG TABLET (FP) PO SCH (09:45)
[2018-05-07] MEDS: metoPROLOL SUCCINATE 25 MG TAB.SR.24H (FP) PO SCH (09:45)
[2018-05-07] MEDS: PANTOPRAZOLE 40 MG TABLET (FP) PO SCH (09:45)
[2018-05-07] MEDS: NIFEdipine E.R. 30 MG TABLET (FP) PO SCH (09:45)
[2018-05-07] MEDS ORDERED: PT OWN MED DRAWER 7, Y5N ONE (10:42)
--- NOTE | 2018-05-07 12:19 | PN ---
Progress Note (short form) - Note Progress Note: Renal follow up for JACK on CKD Pt seen and examined at the bedside no acute complaints no sob, cp, abd pain son at the bedside making urine on IVF Vital Signs Temperature 98.1 F 05/07/18 06:25 Pulse Rate 78 05/07/18 06:25 Respiratory Rate 20 05/07/18 06:25 Blood Pressure 155/88 05/07/18 06:25 O2 Sat by Pulse Oximetry (%) 98 05/06/18 21:00 Intake & Output 05/04/18 05/05/18 05/06/18 05/07/18 23:59 23:59 23:59 23:59 Intake Total 300 1400 1350 1040 Output Total 250 Balance 300 1150 1350 1040 Weight 68.946 kg NAD awake and alert trace LE edema CBC, BMP 05/07/18 05:30 05/07/18 05:30 Current Medications Clopidogrel Bisulfate (Plavix -) 75 mg PO DAILY [facility] Last Admin: 05/07/18 09:45 Dose: 75 mg Heparin Sodium (Porcine) (Heparin -) 5,000 unit SQ TID [facility] Last Admin: 05/07/18 06:14 Dose: 5,000 unit Metoprolol Succinate (Toprol Xl -) 25 mg PO DAILY [facility] Last Admin: 05/07/18 09:45 Dose: 25 mg Nifedipine (Procardia Xl -) 30 mg PO DAILY [facility] Last Admin: 05/07/18 09:45 Dose: 30 mg Pantoprazole Sodium (Protonix -) 40 mg PO DAILY [facility] Last Admin: 05/07/18 09:45 Dose: 40 mg Rosuvastatin Calcium (Crestor -) 10 mg PO HS [facility] Last Admin: 05/06/18 22:41 Dose: 10 mg Sitagliptin Phosphate (Januvia -) 25 mg PO DAILY@0700 [facility] Last Admin: 05/07/18 06:14 Dose: 25 mg 88 year old woman with hx of CKD (baseline Cr ~1.6), Hypertension, DM type 2, CAD, CVA who [place] the [place] with [place] and found to have JACK with hyperkalemia and hyponatremia. #JACK on CKD likely due to renal hypoprofusion in setting from hypovolemia +/- ARB vs. AIN (less likely) #Hyperkalemia in setting of JACK #Susepcted Hypovolemic Hyponatremia #s/p Fall #Hypertension #DM Type 2 Urine studies consistent with volume depletion renal function improved to near baseline with IVF, can discontinue fluids today restart nifedpine ER 30mg Daily for BP control hold PRISCILLA/ARB for now continue low K diet serum Na stable, pt known to have chronic hyponatremia (CT of Chest and Abd negative for malignancy on prior admissions) Javon Cota DO
--- NOTE | 2018-05-07 12:25 | PN ---
Progress Note, Physician History of Present Illness: patient doing well no complaints has esbl in urine very low quantities asymptomatic - Current Medication List Current Medications: Active Medications Clopidogrel Bisulfate (Plavix -) 75 mg PO DAILY [facility] Last Admin: 05/07/18 09:45 Dose: 75 mg Heparin Sodium (Porcine) (Heparin -) 5,000 unit SQ TID [facility] Last Admin: 05/07/18 06:14 Dose: 5,000 unit Metoprolol Succinate (Toprol Xl -) 25 mg PO DAILY [facility] Last Admin: 05/07/18 09:45 Dose: 25 mg Nifedipine (Procardia Xl -) 30 mg PO DAILY [facility] Last Admin: 05/07/18 09:45 Dose: 30 mg Pantoprazole Sodium (Protonix -) 40 mg PO DAILY [facility] Last Admin: 05/07/18 09:45 Dose: 40 mg Rosuvastatin Calcium (Crestor -) 10 mg PO HS [facility] Last Admin: 05/06/18 22:41 Dose: 10 mg Sitagliptin Phosphate (Januvia -) 25 mg PO DAILY@0700 [facility] Last Admin: 05/07/18 06:14 Dose: 25 mg - Objective Vital Signs: Vital Signs Temperature 98.1 F 05/07/18 06:25 Pulse Rate 78 05/07/18 06:25 Respiratory Rate 20 05/07/18 09:00 Blood Pressure 155/88 05/07/18 06:25 O2 Sat by Pulse Oximetry (%) 98 05/07/18 09:00 Constitutional: Yes: No Distress, Calm Cardiovascular: Yes: Regular Rate and Rhythm Respiratory: Yes: Regular, CTA Bilaterally Gastrointestinal: Yes: Normal Bowel Sounds, Soft Musculoskeletal: Yes: WNL Extremities: Yes: WNL Neurological: Yes: Alert, Oriented Psychiatric: Yes: Alert, Oriented Labs: CBC, BMP 05/07/18 05:30 05/07/18 05:30 INR, PTT INR 1.05 (0.83-1.09) 05/03/18 13:38 Assessment/Plan Assessment/Plan Problem List - Problems (1) leukocytosis (2) CAD (coronary artery disease) Code(s): I25.10 - ATHSCL HEART DISEASE OF [place] CORONARY ARTERY W/O ANG PCTRS (3) HTN (hypertension) Code(s): I10 - ESSENTIAL (PRIMARY) HYPERTENSION (4) Chronic kidney disease Code(s): N18.9 - CHRONIC KIDNEY DISEASE, UNSPECIFIED Qualifiers: Chronic kidney disease stage: unspecified stage Qualified Code(s): N18.9 - Chronic kidney disease, unspecified (5) Diabetes Code(s): E11.9 - TYPE 2 DIABETES MELLITUS WITHOUT COMPLICATIONS (6) HLD (hyperlipidemia) Code(s): E78.5 - HYPERLIPIDEMIA, UNSPECIFIED (7) Osteoarthritis Code(s): M19.90 - UNSPECIFIED OSTEOARTHRITIS, UNSPECIFIED SITE Qualifiers: Osteoarthritis location: knee Osteoarthritis type: unspecified Laterality : right Qualified Code(s): M17.11 - Unilateral primary osteoarthritis, right knee (8) CHF (congestive heart failure) Code(s): I50.9 - HEART FAILURE, UNSPECIFIED Qualifiers: Heart failure type: unspecified Heart failure chronicity: unspecified Qualified Code(s): I50.9 - Heart failure, unspecified 9 uti plan all cx result noted counts low will stop all abx and monitor rest as per the team
--- NOTE | 2018-05-07 19:29 | PN ---
Progress Note, Physician History of Present Illness: No new complaints - Current Medication List Current Medications: Active Medications Clopidogrel Bisulfate (Plavix -) 75 mg PO DAILY [facility] Last Admin: 05/07/18 09:45 Dose: 75 mg Heparin Sodium (Porcine) (Heparin -) 5,000 unit SQ TID [facility] Last Admin: 05/07/18 15:04 Dose: 5,000 unit Metoprolol Succinate (Toprol Xl -) 25 mg PO DAILY [facility] Last Admin: 05/07/18 09:45 Dose: 25 mg Nifedipine (Procardia Xl -) 30 mg PO DAILY [facility] Last Admin: 05/07/18 09:45 Dose: 30 mg Pantoprazole Sodium (Protonix -) 40 mg PO DAILY [facility] Last Admin: 05/07/18 09:45 Dose: 40 mg Rosuvastatin Calcium (Crestor -) 10 mg PO HS [facility] Last Admin: 05/06/18 22:41 Dose: 10 mg Sitagliptin Phosphate (Januvia -) 25 mg PO DAILY@0700 [facility] Last Admin: 05/07/18 06:14 Dose: 25 mg - Objective Vital Signs: Vital Signs Temperature 98 F 05/07/18 16:15 Pulse Rate 86 05/07/18 16:15 Respiratory Rate 18 05/07/18 16:15 Blood Pressure 152/99 05/07/18 16:15 O2 Sat by Pulse Oximetry (%) 98 05/07/18 13:33 Neck: Yes: WNL, Supple Cardiovascular: Yes: WNL, Regular Rate and Rhythm Respiratory: Yes: WNL, Regular, CTA Bilaterally Gastrointestinal: Yes: WNL, Normal Bowel Sounds, Soft Labs: CBC, BMP 05/07/18 05:30 05/07/18 05:30 INR, PTT INR 1.05 (0.83-1.09) 05/03/18 13:38 Problem List - Problems (1) Weakness Assessment/Plan: Multifactorial Electrolyte imbalance Urine culture only showed 20,000-30,000 and 10,000 counts No antibxs needed Code(s): R53.1 - WEAKNESS (2) Acute renal failure (ARF) Assessment/Plan: BUN/creatinine improved Renal US showed atrophied kidneys Code(s): N17.9 - ACUTE KIDNEY FAILURE, UNSPECIFIED Qualifiers: Acute renal failure type: unspecified Qualified Code(s): N17.9 - Acute kidney failure, unspecified (3) Hyperkalemia Assessment/Plan: Resolved Code(s): E87.5 - HYPERKALEMIA (4) Hyponatremia Assessment/Plan: Improved Code(s): E87.1 - HYPO-OSMOLALITY AND HYPONATREMIA (5) CHF (congestive heart failure) Code(s): I50.9 - HEART FAILURE, UNSPECIFIED Qualifiers: Heart failure type: unspecified Heart failure chronicity: unspecified Qualified Code(s): I50.9 - Heart failure, unspecified (6) Diabetes Assessment/Plan: Cont sliding scale w/ coverage/januvia Code(s): E11.9 - TYPE 2 DIABETES MELLITUS WITHOUT COMPLICATIONS Qualifiers: Diabetes mellitus type: type 2 (7) HLD (hyperlipidemia) Code(s): E78.5 - HYPERLIPIDEMIA, UNSPECIFIED (8) HTN (hypertension) Assessment/Plan: Cont nifedipine/metoprolol BP stable Code(s): I10 - ESSENTIAL (PRIMARY) HYPERTENSION (9) Osteoarthritis Assessment/Plan: Start PT evall Code(s): M19.90 - UNSPECIFIED OSTEOARTHRITIS, UNSPECIFIED SITE Qualifiers: Osteoarthritis location: knee Osteoarthritis type: unspecified Laterality : right Qualified Code(s): M17.11 - Unilateral primary osteoarthritis, right knee (10) Carotid artery disease Code(s): I77.9 - DISORDER OF ARTERIES AND ARTERIOLES, UNSPECIFIED Qualifiers: Laterality: unspecified laterality (11) CAD (coronary artery disease) Assessment/Plan: Cont plavix Code(s): I25.10 - ATHSCL HEART DISEASE OF [place] CORONARY ARTERY W/O ANG PCTRS
[2018-05-07] MEDS: ROSUVASTATIN CA 10 MG TABLET (FP) PO SCH (21:27)
[2018-05-08] MEDS: HEPARIN NA (PORCINE) 5,000 UNITS/ML 1ML VIAL SQ SCH ×3 (06:16→22:05)
[2018-05-08] MEDS: sitaGLIPtin PHOSPHATE 25 MG TABLET (FP) PO SCH (06:16)
[2018-05-08 06:37] LABS: BASO % 1.1 % (0-2.0); EOS % 5.8 % (0-4.5); HEMATOCRIT 36.3 % (32.4-45.2); HEMOGLOBIN 12.1 GM/dL (10.7-15.3); LYMPH % 15.2 % (8-40); MCH 27.8 pg (25.7-33.7); MCHC 33.2 g/dl (32.0-36.0); MEAN CELL VOLUME 83.6 fl (80-96); MEAN PLT VOLUME 8.5 fl (7.5-11.1); MONO % 10.1 % (3.8-10.2); NEUT % 67.8 % (42.8-82.8); PLATELET COUNT 359 K/MM3 (134-434); RBC 4.34 M/mm3 (3.60-5.2); RDW 14.5 % (11.6-15.6); WHITE BLOOD COUNT 10.4 K/mm3 (4.0-10.0)
[2018-05-08 07:04] LABS: ANION GAP 8 MMOL/L (8-16); BLOOD UREA NITROGEN 27 mg/dL (7-18); CALCIUM 9.1 mg/dL (8.5-10.1); CHLORIDE 100 mmol/L (98-107); CO2 21 mmol/L (21-32); CREATININE 1.6 mg/dL (0.55-1.3); GLUCOSE,RANDOM 115 mg/dL (74-106); MAGNESIUM 1.7 mg/dL (1.8-2.4); PHOSPHOROUS 2.8 mg/dL (2.5-4.9); POTASSIUM 4.7 mmol/L (3.5-5.1); SODIUM 129 mmol/L (136-145)
[2018-05-08] MEDS ORDERED: PT OWN MED DRAWER 7, Y5N ONE ×2 (09:27→21:55)
[2018-05-08] MEDS: NIFEdipine E.R. 30 MG TABLET (FP) PO SCH (09:39)
[2018-05-08] MEDS: PANTOPRAZOLE 40 MG TABLET (FP) PO SCH (09:39)
[2018-05-08] MEDS: CLOPIDOGREL BISULFATE 75 MG TABLET (FP) PO SCH (09:39)
[2018-05-08] MEDS: metoPROLOL SUCCINATE 25 MG TAB.SR.24H (FP) PO SCH (09:39)
[2018-05-08] MEDS ORDERED: MAGNESIUM SULF 50% (8.12 MEQ/2 ML-1 GM VIAL) IVPB ONE (12:18)
--- NOTE | 2018-05-08 12:29 | PN ---
Progress Note (short form) - Note Progress Note: Renal follow up for JACK on CKD Pt seen and examined at the bedside no acute complaints tolerating oral diet well making urine no sob, cp, confusion or lethargy Vital Signs Temperature 97.9 F 05/08/18 10:00 Pulse Rate 88 05/08/18 10:00 Respiratory Rate 20 05/08/18 10:00 Blood Pressure 149/73 05/08/18 10:00 O2 Sat by Pulse Oximetry (%) 97 05/08/18 09:00 Intake & Output 05/05/18 05/06/18 05/07/18 05/08/18 23:59 23:59 23:59 23:59 Intake Total 1400 1350 1989 Output Total 250 Balance 1150 1350 1989 NAD awake and alert trace LE edema CBC, BMP 05/08/18 06:00 05/08/18 06:00 Current Medications Clopidogrel Bisulfate (Plavix -) 75 mg PO DAILY [facility] Last Admin: 05/08/18 09:39 Dose: 75 mg Heparin Sodium (Porcine) (Heparin -) 5,000 unit SQ TID [facility] Last Admin: 05/08/18 06:16 Dose: 5,000 unit Magnesium Chloride (Slow-Mag -) 64 mg PO DAILY [facility] Metoprolol Succinate (Toprol Xl -) 25 mg PO DAILY [facility] Last Admin: 05/08/18 09:39 Dose: 25 mg Nifedipine (Procardia Xl -) 30 mg PO DAILY [facility] Last Admin: 05/08/18 09:39 Dose: 30 mg Pantoprazole Sodium (Protonix -) 40 mg PO DAILY [facility] Last Admin: 05/08/18 09:39 Dose: 40 mg Rosuvastatin Calcium (Crestor -) 10 mg PO HS [facility] Last Admin: 05/07/18 21:27 Dose: 10 mg Sitagliptin Phosphate (Januvia -) 25 mg PO DAILY@0700 [facility] Last Admin: 05/08/18 06:16 Dose: 25 mg 88 year old woman with hx of CKD (baseline Cr ~1.6), Hypertension, DM type 2, CAD, CVA who presented from the [place] with fall and found to have JACK with hyperkalemia and hyponatremia. #JACK on CKD likely due to renal hypoprofusion in setting from hypovolemia +/- ARB vs. AIN (less likely) #Hyperkalemia in setting of JACK #Susepcted Hypovolemic Hyponatremia #s/p Fall #Hypertension #DM Type 2 Renal function improved and stable can resume Benicar today Mg levels low, will give IV again today and start oral Mg supplementation tomorrow BP above goal today discharge planing as per primary to follow up in our office in 1 month after discharge Javon Cota DO
[2018-05-08] MEDS: LOSARTAN POTASSIUM 25 MG TABLET PO SCH (13:57)
--- NOTE | 2018-05-08 14:32 | PN ---
Progress Note, Physician History of Present Illness: patient doing well no complaints - Current Medication List Current Medications: Active Medications Clopidogrel Bisulfate (Plavix -) 75 mg PO DAILY [facility] Last Admin: 05/08/18 09:39 Dose: 75 mg Heparin Sodium (Porcine) (Heparin -) 5,000 unit SQ TID [facility] Last Admin: 05/08/18 13:58 Dose: 5,000 unit Losartan Potassium (Cozaar -) 25 mg PO DAILY [facility] Last Admin: 05/08/18 13:57 Dose: 25 mg Magnesium Chloride (Slow-Mag -) 64 mg PO DAILY [facility] Metoprolol Succinate (Toprol Xl -) 25 mg PO DAILY [facility] Last Admin: 05/08/18 09:39 Dose: 25 mg Nifedipine (Procardia Xl -) 30 mg PO DAILY [facility] Last Admin: 05/08/18 09:39 Dose: 30 mg Pantoprazole Sodium (Protonix -) 40 mg PO DAILY [facility] Last Admin: 05/08/18 09:39 Dose: 40 mg Rosuvastatin Calcium (Crestor -) 10 mg PO HS [facility] Last Admin: 05/07/18 21:27 Dose: 10 mg Sitagliptin Phosphate (Januvia -) 25 mg PO DAILY@0700 [facility] Last Admin: 05/08/18 06:16 Dose: 25 mg - Objective Vital Signs: Vital Signs Temperature 97.9 F 05/08/18 10:00 Pulse Rate 83 05/08/18 13:57 Respiratory Rate 20 05/08/18 13:57 Blood Pressure 127/91 05/08/18 13:57 O2 Sat by Pulse Oximetry (%) 97 05/08/18 09:00 Constitutional: Yes: No Distress, Calm Cardiovascular: Yes: Regular Rate and Rhythm Respiratory: Yes: Regular, CTA Bilaterally Gastrointestinal: Yes: Normal Bowel Sounds, Soft Musculoskeletal: Yes: WNL Extremities: Yes: WNL Neurological: Yes: Alert, Oriented Psychiatric: Yes: Alert, Oriented Labs: CBC, BMP 05/08/18 06:00 05/08/18 06:00 INR, PTT INR 1.05 (0.83-1.09) 05/03/18 13:38 Assessment/Plan Assessment/Plan Problem List - Problems (1) leukocytosis (2) CAD (coronary artery disease) Code(s): I25.10 - ATHSCL HEART DISEASE OF [place] CORONARY ARTERY W/O ANG PCTRS (3) HTN (hypertension) Code(s): I10 - ESSENTIAL (PRIMARY) HYPERTENSION (4) Chronic kidney disease Code(s): N18.9 - CHRONIC KIDNEY DISEASE, UNSPECIFIED Qualifiers: Chronic kidney disease stage: unspecified stage Qualified Code(s): N18.9 - Chronic kidney disease, unspecified (5) Diabetes Code(s): E11.9 - TYPE 2 DIABETES MELLITUS WITHOUT COMPLICATIONS (6) HLD (hyperlipidemia) Code(s): E78.5 - HYPERLIPIDEMIA, UNSPECIFIED (7) Osteoarthritis Code(s): M19.90 - UNSPECIFIED OSTEOARTHRITIS, UNSPECIFIED SITE Qualifiers: Osteoarthritis location: knee Osteoarthritis type: unspecified Laterality : right Qualified Code(s): M17.11 - Unilateral primary osteoarthritis, right knee (8) CHF (congestive heart failure) Code(s): I50.9 - HEART FAILURE, UNSPECIFIED Qualifiers: Heart failure type: unspecified Heart failure chronicity: unspecified Qualified Code(s): I50.9 - Heart failure, unspecified 9 uti plan all cx result noted counts low continue to monitor rest as per the team
[2018-05-08] MEDS: ROSUVASTATIN CA 10 MG TABLET (FP) PO SCH (22:05)
--- NOTE | 2018-05-08 23:41 | PN ---
Progress Note, Physician - Current Medication List Current Medications: Active Medications Clopidogrel Bisulfate (Plavix -) 75 mg PO DAILY [facility] Last Admin: 05/08/18 09:39 Dose: 75 mg Heparin Sodium (Porcine) (Heparin -) 5,000 unit SQ TID [facility] Last Admin: 05/08/18 22:05 Dose: 5,000 unit Losartan Potassium (Cozaar -) 25 mg PO DAILY [facility] Last Admin: 05/08/18 13:57 Dose: 25 mg Magnesium Chloride (Slow-Mag -) 64 mg PO DAILY [facility] Metoprolol Succinate (Toprol Xl -) 25 mg PO DAILY [facility] Last Admin: 05/08/18 09:39 Dose: 25 mg Nifedipine (Procardia Xl -) 30 mg PO DAILY [facility] Last Admin: 05/08/18 09:39 Dose: 30 mg Pantoprazole Sodium (Protonix -) 40 mg PO DAILY [facility] Last Admin: 05/08/18 09:39 Dose: 40 mg Rosuvastatin Calcium (Crestor -) 10 mg PO HS [facility] Last Admin: 05/08/18 22:05 Dose: 10 mg Sitagliptin Phosphate (Januvia -) 25 mg PO DAILY@0700 [facility] Last Admin: 05/08/18 06:16 Dose: 25 mg - Objective Vital Signs: Vital Signs Temperature 98.4 F 05/08/18 16:15 Pulse Rate 81 05/08/18 16:15 Respiratory Rate 18 05/08/18 16:15 Blood Pressure 136/66 05/08/18 16:15 O2 Sat by Pulse Oximetry (%) 97 05/08/18 09:00 Labs: CBC, BMP 05/08/18 06:00 05/08/18 06:00 INR, PTT INR 1.05 (0.83-1.09) 05/03/18 13:38 Problem List - Problems (1) Weakness Code(s): R53.1 - WEAKNESS (2) Acute renal failure (ARF) Code(s): N17.9 - ACUTE KIDNEY FAILURE, UNSPECIFIED Qualifiers: Acute renal failure type: unspecified Qualified Code(s): N17.9 - Acute kidney failure, unspecified (3) Hyperkalemia Code(s): E87.5 - HYPERKALEMIA (4) Hyponatremia Code(s): E87.1 - HYPO-OSMOLALITY AND HYPONATREMIA (5) CHF (congestive heart failure) Code(s): I50.9 - HEART FAILURE, UNSPECIFIED Qualifiers: Heart failure type: unspecified Heart failure chronicity: unspecified Qualified Code(s): I50.9 - Heart failure, unspecified (6) Diabetes Code(s): E11.9 - TYPE 2 DIABETES MELLITUS WITHOUT COMPLICATIONS Qualifiers: Diabetes mellitus type: type 2 (7) HLD (hyperlipidemia) Code(s): E78.5 - HYPERLIPIDEMIA, UNSPECIFIED (8) HTN (hypertension) Code(s): I10 - ESSENTIAL (PRIMARY) HYPERTENSION (9) Osteoarthritis Code(s): M19.90 - UNSPECIFIED OSTEOARTHRITIS, UNSPECIFIED SITE Qualifiers: Osteoarthritis location: knee Osteoarthritis type: unspecified Laterality : right Qualified Code(s): M17.11 - Unilateral primary osteoarthritis, right knee (10) Carotid artery disease Code(s): I77.9 - DISORDER OF ARTERIES AND ARTERIOLES, UNSPECIFIED Qualifiers: Laterality: unspecified laterality (11) CAD (coronary artery disease) Code(s): I25.10 - ATHSCL HEART DISEASE OF [place] CORONARY ARTERY W/O ANG PCTRS
[2018-05-09] MEDS ORDERED: PT OWN MED DRAWER 7, Y5N ONE ×3 (06:03→09:14)
[2018-05-09] MEDS: HEPARIN NA (PORCINE) 5,000 UNITS/ML 1ML VIAL SQ SCH ×3 (07:21→22:27)
[2018-05-09] MEDS: sitaGLIPtin PHOSPHATE 25 MG TABLET (FP) PO SCH (07:21)
[2018-05-09 07:49] LABS: BASO % 0.5 % (0-2.0); EOS % 6.8 % (0-4.5); HEMATOCRIT 39.1 % (32.4-45.2); HEMOGLOBIN 12.7 GM/dL (10.7-15.3); LYMPH % 14.9 % (8-40); MCH 27.5 pg (25.7-33.7); MCHC 32.4 g/dl (32.0-36.0); MEAN CELL VOLUME 84.9 fl (80-96); MEAN PLT VOLUME 8.4 fl (7.5-11.1); MONO % 10.4 % (3.8-10.2); NEUT % 67.4 % (42.8-82.8); PLATELET COUNT 381 K/MM3 (134-434); RDW 14.7 % (11.6-15.6)
[2018-05-09 08:03] LABS: ALK PHOS 74 U/L (45-117); ANION GAP 8 MMOL/L (8-16); BILIRUBIN,TOTAL 0.4 mg/dL (0.2-1); BLOOD UREA NITROGEN 33 mg/dL (7-18); CALCIUM 9.8 mg/dL (8.5-10.1); CHLORIDE 97 mmol/L (98-107); CO2 23 mmol/L (21-32); CREATININE 1.8 mg/dL (0.55-1.3); GLUCOSE,RANDOM 116 mg/dL (74-106); MAGNESIUM 2.2 mg/dL (1.8-2.4); PHOSPHOROUS 3.1 mg/dL (2.5-4.9); POTASSIUM 5.3 mmol/L (3.5-5.1); SGOT/AST 22 U/L (15-37); SGPT/ALT 25 U/L (13-61); SODIUM 128 mmol/L (136-145); TOT PROT 7.1 g/dl (6.4-8.2)
[2018-05-09] MEDS: metoPROLOL SUCCINATE 25 MG TAB.SR.24H (FP) PO SCH (09:18)
[2018-05-09] MEDS: LOSARTAN POTASSIUM 25 MG TABLET PO SCH (09:18)
[2018-05-09] MEDS: NIFEdipine E.R. 30 MG TABLET (FP) PO SCH (09:18)
[2018-05-09] MEDS: PANTOPRAZOLE 40 MG TABLET (FP) PO SCH (09:18)
[2018-05-09] MEDS: CLOPIDOGREL BISULFATE 75 MG TABLET (FP) PO SCH (09:18)
[2018-05-09] MEDS: MAGNESIUM CL 64 MG TABLET.SA PO SCH (09:19)
[2018-05-09] MEDS ORDERED: SODIUM CHLORIDE 500 ML IV STA (11:02)
[2018-05-09] MEDS ORDERED: SODIUM CHLORIDE 1,000 ML IV SCH (11:15)
--- NOTE | 2018-05-09 11:52 | PN ---
Progress Note (short form) - Note Progress Note: Renal follow up for JACK on CKD Pt seen and examined at the bedside no complaints restarted on IVF this am no sob, cp, abd pain, N/V/D Vital Signs Temperature 98.0 F 05/09/18 10:00 Pulse Rate 90 05/09/18 10:00 Respiratory Rate 18 05/09/18 10:00 Blood Pressure 145/77 05/09/18 10:00 O2 Sat by Pulse Oximetry (%) 97 05/08/18 21:00 NAD awake and alert trace LE edema CBC, BMP 05/09/18 06:30 05/09/18 06:30 Current Medications Clopidogrel Bisulfate (Plavix -) 75 mg PO DAILY [facility] Last Admin: 05/09/18 09:18 Dose: 75 mg Heparin Sodium (Porcine) (Heparin -) 5,000 unit SQ TID [facility] Last Admin: 05/09/18 07:21 Dose: 5,000 unit Sodium Chloride (Normal Saline -) 500 mls @ 500 mls/hr IV ASDIR STA Stop: 05/09/18 12:01 Last Admin: 05/09/18 11:43 Dose: 500 mls/hr Sodium Chloride (Normal Saline -) 1,000 mls @ 75 mls/hr IV ASDIR LEONIE Stop: 05/09/18 23:14 Losartan Potassium (Cozaar -) 25 mg PO DAILY [facility] Last Admin: 05/09/18 09:18 Dose: 25 mg Magnesium Chloride (Slow-Mag -) 64 mg PO DAILY [facility] Last Admin: 05/09/18 09:19 Dose: 64 mg Metoprolol Succinate (Toprol Xl -) 25 mg PO DAILY [facility] Last Admin: 05/09/18 09:18 Dose: 25 mg Nifedipine (Procardia Xl -) 30 mg PO DAILY [facility] Last Admin: 05/09/18 09:18 Dose: 30 mg Pantoprazole Sodium (Protonix -) 40 mg PO DAILY [facility] Last Admin: 05/09/18 09:18 Dose: 40 mg Rosuvastatin Calcium (Crestor -) 10 mg PO HS [facility] Last Admin: 05/08/18 22:05 Dose: 10 mg Sitagliptin Phosphate (Januvia -) 25 mg PO DAILY@0700 [facility] Last Admin: 05/09/18 07:21 Dose: 25 mg 88 year old woman with hx of CKD (baseline Cr ~1.6), Hypertension, DM type 2, CAD, CV[place] [facility] [place] found to have JACK with hyperkalemia and hyponatremia. #JACK on CKD likely due to renal hypoprofusion in setting from hypovolemia +/- ARB vs. AIN (less likely) #Hyperkalemia in setting of JACK #Susepcted Hypovolemic Hyponatremia #s/p Fall #Hypertension #DM Type 2 BUN/Cr and K noted to be slightly higher today, may be due to restarting ARB Will give IVF this am and repeat labs around 2-3 pm, if Numbers are stable can be discharged with outpatient follow up no indication for 3% saline, should limit water intake at home to 1 to 1.2L Continue current antihypertensive meds including Benicar at home Mg supplement to be continued daily Thank you Javon Cota DO
--- NOTE | 2018-05-09 11:54 | PN ---
Progress Note, Physician History of Present Illness: patient stable no complaints - Current Medication List Current Medications: Active Medications Clopidogrel Bisulfate (Plavix -) 75 mg PO DAILY [facility] Last Admin: 05/09/18 09:18 Dose: 75 mg Heparin Sodium (Porcine) (Heparin -) 5,000 unit SQ TID [facility] Last Admin: 05/09/18 07:21 Dose: 5,000 unit Sodium Chloride (Normal Saline -) 500 mls @ 500 mls/hr IV ASDIR STA Stop: 05/09/18 12:01 Last Admin: 05/09/18 11:43 Dose: 500 mls/hr Sodium Chloride (Normal Saline -) 1,000 mls @ 75 mls/hr IV ASDIR [facility] Stop: 05/09/18 23:14 Losartan Potassium (Cozaar -) 25 mg PO DAILY [facility] Last Admin: 05/09/18 09:18 Dose: 25 mg Magnesium Chloride (Slow-Mag -) 64 mg PO DAILY [facility] Last Admin: 05/09/18 09:19 Dose: 64 mg Metoprolol Succinate (Toprol Xl -) 25 mg PO DAILY [facility] Last Admin: 05/09/18 09:18 Dose: 25 mg Nifedipine (Procardia Xl -) 30 mg PO DAILY [facility] Last Admin: 05/09/18 09:18 Dose: 30 mg Pantoprazole Sodium (Protonix -) 40 mg PO DAILY [facility] Last Admin: 05/09/18 09:18 Dose: 40 mg Rosuvastatin Calcium (Crestor -) 10 mg PO HS [facility] Last Admin: 05/08/18 22:05 Dose: 10 mg Sitagliptin Phosphate (Januvia -) 25 mg PO DAILY@0700 [facility] Last Admin: 05/09/18 07:21 Dose: 25 mg - Objective Vital Signs: Vital Signs Temperature 98.0 F 05/09/18 10:00 Pulse Rate 90 05/09/18 10:00 Respiratory Rate 18 05/09/18 10:00 Blood Pressure 145/77 05/09/18 10:00 O2 Sat by Pulse Oximetry (%) 97 05/08/18 21:00 Constitutional: Yes: No Distress, Calm Cardiovascular: Yes: S1, S2 Respiratory: Yes: Regular, CTA Bilaterally Gastrointestinal: Yes: Normal Bowel Sounds, Soft Musculoskeletal: Yes: WNL Extremities: Yes: WNL Neurological: Yes: Alert, Oriented Labs: CBC, BMP 05/09/18 06:30 05/09/18 06:30 INR, PTT INR 1.05 (0.83-1.09) 05/03/18 13:38 Assessment/Plan Assessment/Plan Problem List - Problems (1) leukocytosis (2) CAD (coronary artery disease) Code(s): I25.10 - ATHSCL HEART DISEASE OF [place] CORONARY ARTERY W/O ANG PCTRS (3) HTN (hypertension) Code(s): I10 - ESSENTIAL (PRIMARY) HYPERTENSION (4) Chronic kidney disease Code(s): N18.9 - CHRONIC KIDNEY DISEASE, UNSPECIFIED Qualifiers: Chronic kidney disease stage: unspecified stage Qualified Code(s): N18.9 - Chronic kidney disease, unspecified (5) Diabetes Code(s): E11.9 - TYPE 2 DIABETES MELLITUS WITHOUT COMPLICATIONS (6) HLD (hyperlipidemia) Code(s): E78.5 - HYPERLIPIDEMIA, UNSPECIFIED (7) Osteoarthritis Code(s): M19.90 - UNSPECIFIED OSTEOARTHRITIS, UNSPECIFIED SITE Qualifiers: Osteoarthritis location: knee Osteoarthritis type: unspecified Laterality : right Qualified Code(s): M17.11 - Unilateral primary osteoarthritis, right knee (8) CHF (congestive heart failure) Code(s): I50.9 - HEART FAILURE, UNSPECIFIED Qualifiers: Heart failure type: unspecified Heart failure chronicity: unspecified Qualified Code(s): I50.9 - Heart failure, unspecified 9 uti plan continue current mgmt rest as per the team
[2018-05-09 15:38] LABS: ANION GAP 8 MMOL/L (8-16); BLOOD UREA NITROGEN 35 mg/dL (7-18); CALCIUM 8.8 mg/dL (8.5-10.1); CHLORIDE 97 mmol/L (98-107); CO2 21 mmol/L (21-32); CREATININE 1.8 mg/dL (0.55-1.3); GLUCOSE,RANDOM 114 mg/dL (74-106); POTASSIUM 4.9 mmol/L (3.5-5.1); SODIUM 125 mmol/L (136-145)
--- NOTE | 2018-05-09 19:23 | PN ---
Progress Note, Physician - Current Medication List Current Medications: Active Medications Clopidogrel Bisulfate (Plavix -) 75 mg PO DAILY [facility] Last Admin: 05/09/18 09:18 Dose: 75 mg Heparin Sodium (Porcine) (Heparin -) 5,000 unit SQ TID [facility] Last Admin: 05/09/18 14:38 Dose: 5,000 unit Sodium Chloride (Normal Saline -) 1,000 mls @ 75 mls/hr IV ASDIR [facility] Stop: 05/09/18 23:14 Last Admin: 05/09/18 14:38 Dose: 75 mls/hr Losartan Potassium (Cozaar -) 25 mg PO DAILY [facility] Last Admin: 05/09/18 09:18 Dose: 25 mg Magnesium Chloride (Slow-Mag -) 64 mg PO DAILY [facility] Last Admin: 05/09/18 09:19 Dose: 64 mg Metoprolol Succinate (Toprol Xl -) 25 mg PO DAILY [facility] Last Admin: 05/09/18 09:18 Dose: 25 mg Nifedipine (Procardia Xl -) 30 mg PO DAILY [facility] Last Admin: 05/09/18 09:18 Dose: 30 mg Pantoprazole Sodium (Protonix -) 40 mg PO DAILY [facility] Last Admin: 05/09/18 09:18 Dose: 40 mg Rosuvastatin Calcium (Crestor -) 10 mg PO HS [facility] Last Admin: 05/08/18 22:05 Dose: 10 mg Sitagliptin Phosphate (Januvia -) 25 mg PO DAILY@0700 [facility] Last Admin: 05/09/18 07:21 Dose: 25 mg - Objective Vital Signs: Vital Signs Temperature 98.5 F 05/09/18 15:25 Pulse Rate 82 05/09/18 15:25 Respiratory Rate 19 05/09/18 15:25 Blood Pressure 135/79 05/09/18 15:25 O2 Sat by Pulse Oximetry (%) 99 05/09/18 09:00 Labs: CBC, BMP 05/09/18 06:30 05/09/18 15:00 INR, PTT INR 1.05 (0.83-1.09) 05/03/18 13:38 Problem List - Problems (1) Weakness Code(s): R53.1 - WEAKNESS (2) Acute renal failure (ARF) Code(s): N17.9 - ACUTE KIDNEY FAILURE, UNSPECIFIED Qualifiers: Acute renal failure type: unspecified Qualified Code(s): N17.9 - Acute kidney failure, unspecified (3) Hyperkalemia Code(s): E87.5 - HYPERKALEMIA (4) Hyponatremia Code(s): E87.1 - HYPO-OSMOLALITY AND HYPONATREMIA (5) CHF (congestive heart failure) Code(s): I50.9 - HEART FAILURE, UNSPECIFIED Qualifiers: Heart failure type: unspecified Heart failure chronicity: unspecified Qualified Code(s): I50.9 - Heart failure, unspecified (6) Diabetes Code(s): E11.9 - TYPE 2 DIABETES MELLITUS WITHOUT COMPLICATIONS Qualifiers: Diabetes mellitus type: type 2 (7) HLD (hyperlipidemia) Code(s): E78.5 - HYPERLIPIDEMIA, UNSPECIFIED (8) HTN (hypertension) Code(s): I10 - ESSENTIAL (PRIMARY) HYPERTENSION (9) Osteoarthritis Code(s): M19.90 - UNSPECIFIED OSTEOARTHRITIS, UNSPECIFIED SITE Qualifiers: Osteoarthritis location: knee Osteoarthritis type: unspecified Laterality : right Qualified Code(s): M17.11 - Unilateral primary osteoarthritis, right knee (10) Carotid artery disease Code(s): I77.9 - DISORDER OF ARTERIES AND ARTERIOLES, UNSPECIFIED Qualifiers: Laterality: unspecified laterality (11) CAD (coronary artery disease) Code(s): I25.10 - ATHSCL HEART DISEASE OF [place] CORONARY ARTERY W/O ANG PCTRS
[2018-05-09 21:20] LABS: ANION GAP 9 MMOL/L (8-16); BLOOD UREA NITROGEN 34 mg/dL (7-18); CALCIUM 8.9 mg/dL (8.5-10.1); CHLORIDE 98 mmol/L (98-107); CO2 21 mmol/L (21-32); CREATININE 1.8 mg/dL (0.55-1.3); GLUCOSE,RANDOM 165 mg/dL (74-106); POTASSIUM 5.5 mmol/L (3.5-5.1); SODIUM 127 mmol/L (136-145)
[2018-05-09] MEDS: ROSUVASTATIN CA 10 MG TABLET (FP) PO SCH (22:27)
[2018-05-10] MEDS: sitaGLIPtin PHOSPHATE 25 MG TABLET (FP) PO SCH (06:48)
[2018-05-10] MEDS: HEPARIN NA (PORCINE) 5,000 UNITS/ML 1ML VIAL SQ SCH ×3 (06:49→22:45)
[2018-05-10 06:53] LABS: BASO % 0.7 % (0-2.0); EOS % 6.1 % (0-4.5); HEMATOCRIT 38.2 % (32.4-45.2); HEMOGLOBIN 12.3 GM/dL (10.7-15.3); LYMPH % 9.6 % (8-40); MCH 26.9 pg (25.7-33.7); MCHC 32.1 g/dl (32.0-36.0); MEAN CELL VOLUME 83.8 fl (80-96); MEAN PLT VOLUME 8.5 fl (7.5-11.1); MONO % 8.9 % (3.8-10.2); NEUT % 74.7 % (42.8-82.8); PLATELET COUNT 346 K/MM3 (134-434); RBC 4.56 M/mm3 (3.60-5.2); RDW 14.7 % (11.6-15.6); WHITE BLOOD COUNT 11.3 K/mm3 (4.0-10.0)
[2018-05-10 07:54] LABS: ALBUMIN 2.8 g/dl (3.4-5.0); ALK PHOS 65 U/L (45-117); ANION GAP 8 MMOL/L (8-16); BILIRUBIN,TOTAL 0.6 mg/dL (0.2-1); BLOOD UREA NITROGEN 28 mg/dL (7-18); CALCIUM 9.3 mg/dL (8.5-10.1); CHLORIDE 100 mmol/L (98-107); CO2 20 mmol/L (21-32); CREATININE 1.5 mg/dL (0.55-1.3); GLUCOSE,RANDOM 111 mg/dL (74-106); POTASSIUM 4.9 mmol/L (3.5-5.1); SGOT/AST 22 U/L (15-37); SGPT/ALT 28 U/L (13-61); SODIUM 129 mmol/L (136-145); TOT PROT 6.5 g/dl (6.4-8.2)
[2018-05-10] MEDS ORDERED: PT OWN MED DRAWER 7, Y5N ONE (09:07)
[2018-05-10] MEDS: MAGNESIUM CL 64 MG TABLET.SA PO SCH (09:15)
[2018-05-10] MEDS: PANTOPRAZOLE 40 MG TABLET (FP) PO SCH (09:15)
[2018-05-10] MEDS: metoPROLOL SUCCINATE 25 MG TAB.SR.24H (FP) PO SCH (09:15)
[2018-05-10] MEDS: CLOPIDOGREL BISULFATE 75 MG TABLET (FP) PO SCH (09:15)
[2018-05-10] MEDS: NIFEdipine E.R. 30 MG TABLET (FP) PO SCH (09:16)
--- NOTE | 2018-05-10 14:01 | PN ---
Progress Note, Physician Chief Complaint: The patient seen in her room. Sitting on the chair. Family visiting. Coughing, with minimal expectoration. No SOB. . IV fluids infusing, and well tolerated. History of Present Illness: 88 year old female with hx of CKD (baseline Cr ~1.6), Hypertension, DM type 2, CAD, CVA who [place] the [place] with h/o fall and found to have JACK with hyperkalemia and hyponatremia. - Current Medication List Current Medications: Active Medications Clopidogrel Bisulfate (Plavix -) 75 mg PO DAILY [facility] Last Admin: 05/10/18 09:15 Dose: 75 mg Guaifenesin (Diabetic Tussin Dm -) 10 ml PO Q4H PRN PRN Reason: COUGH Heparin Sodium (Porcine) (Heparin -) 5,000 unit SQ TID [facility] Last Admin: 05/10/18 13:50 Dose: 5,000 unit Magnesium Chloride (Slow-Mag -) 64 mg PO DAILY [facility] Last Admin: 05/10/18 09:15 Dose: 64 mg Metoprolol Succinate (Toprol Xl -) 25 mg PO DAILY [facility] Last Admin: 05/10/18 09:15 Dose: 25 mg Nifedipine (Procardia Xl -) 30 mg PO DAILY [facility] Last Admin: 05/10/18 09:16 Dose: 30 mg Pantoprazole Sodium (Protonix -) 40 mg PO DAILY [facility] Last Admin: 05/10/18 09:15 Dose: 40 mg Rosuvastatin Calcium (Crestor -) 10 mg PO HS [facility] Last Admin: 05/09/18 22:27 Dose: 10 mg Sitagliptin Phosphate (Januvia -) 25 mg PO DAILY@0700 [facility] Last Admin: 05/10/18 06:48 Dose: 25 mg - Objective Vital Signs: Vital Signs Temperature 98.4 F 05/10/18 10:00 Pulse Rate 91 H 05/10/18 10:00 Respiratory Rate 20 05/10/18 10:00 Blood Pressure 162/81 05/10/18 10:00 O2 Sat by Pulse Oximetry (%) 99 05/10/18 09:00 Constitutional: Yes: Well Nourished, Calm Eyes: Yes: Conjunctiva Clear HENT: Yes: Normocephalic Neck: Yes: Trachea Midline Cardiovascular: Yes: Regular Rate and Rhythm, S1, S2 Respiratory: Yes: CTA Bilaterally, Diminished Gastrointestinal: Yes: Normal Bowel Sounds, Abdomen, Obese Genitourinary: No: Bladder Distention, CVA Tenderness - Left, CVA Tenderness - Right Labs: CBC, BMP 05/10/18 06:30 05/10/18 06:30 INR, PTT INR 1.05 (0.83-1.09) 05/03/18 13:38 Problem List - Problems (1) Acute renal failure (ARF) Code(s): N17.9 - ACUTE KIDNEY FAILURE, UNSPECIFIED Qualifiers: Acute renal failure type: unspecified Qualified Code(s): N17.9 - Acute kidney failure, unspecified (2) CKD (chronic kidney disease) Code(s): N18.9 - CHRONIC KIDNEY DISEASE, UNSPECIFIED Qualifiers: (3) Hyperkalemia Code(s): E87.5 - HYPERKALEMIA (4) Hyponatremia Code(s): E87.1 - HYPO-OSMOLALITY AND HYPONATREMIA (5) Weakness Code(s): R53.1 - WEAKNESS (6) CAD (coronary artery disease) Code(s): I25.10 - ATHSCL HEART DISEASE OF [place] CORONARY ARTERY W/O ANG PCTRS (7) CHF (congestive heart failure) Code(s): I50.9 - HEART FAILURE, UNSPECIFIED Qualifiers: Heart failure type: unspecified Heart failure chronicity: unspecified Qualified Code(s): I50.9 - Heart failure, unspecified (8) Chronic kidney disease Code(s): N18.9 - CHRONIC KIDNEY DISEASE, UNSPECIFIED Qualifiers: Chronic kidney disease stage: unspecified stage Qualified Code(s): N18.9 - Chronic kidney disease, unspecified (9) HLD (hyperlipidemia) Code(s): E78.5 - HYPERLIPIDEMIA, UNSPECIFIED (10) HTN (hypertension) Code(s): I10 - ESSENTIAL (PRIMARY) HYPERTENSION (11) History of stroke Code(s): Z86.73 - PRSNL HX OF TIA (TIA), AND CEREB INFRC W/O RESID DEFICITS Assessment/Plan 88 year old woman with hx of CKD (baseline Cr ~1.6), Hypertension, DM type 2, CAD, CVA who [place] the [place] with fall and found to have JACK with hyperkalemia and hyponatremia. JACK on CKD likely due to renal hypoprofusion in setting from hypovolemia. Hyperkalemia in setting of JACK. Corrected now. Hypovolemic Hyponatremia . Normal saline well tolerated. Has a hacking cough. No fever. will give Robitussin. s/p Fall Will monitor the Renal/ Electrolyte profile closely. IV fluids to continue for now. Kandy Gomez MD
--- NOTE | 2018-05-10 18:14 | PN ---
Progress Note, Physician - Current Medication List Current Medications: Active Medications Clopidogrel Bisulfate (Plavix -) 75 mg PO DAILY [facility] Last Admin: 05/10/18 09:15 Dose: 75 mg Guaifenesin (Diabetic Tussin Dm -) 10 ml PO Q4H PRN PRN Reason: COUGH Heparin Sodium (Porcine) (Heparin -) 5,000 unit SQ TID [facility] Last Admin: 05/10/18 13:50 Dose: 5,000 unit Magnesium Chloride (Slow-Mag -) 64 mg PO DAILY [facility] Last Admin: 05/10/18 09:15 Dose: 64 mg Metoprolol Succinate (Toprol Xl -) 25 mg PO DAILY [facility] Last Admin: 05/10/18 09:15 Dose: 25 mg Nifedipine (Procardia Xl -) 30 mg PO DAILY [facility] Last Admin: 05/10/18 09:16 Dose: 30 mg Pantoprazole Sodium (Protonix -) 40 mg PO DAILY [facility] Last Admin: 05/10/18 09:15 Dose: 40 mg Rosuvastatin Calcium (Crestor -) 10 mg PO HS [facility] Last Admin: 05/09/18 22:27 Dose: 10 mg Sitagliptin Phosphate (Januvia -) 25 mg PO DAILY@0700 [facility] Last Admin: 05/10/18 06:48 Dose: 25 mg - Objective Vital Signs: Vital Signs Temperature 98.3 F 05/10/18 15:12 Pulse Rate 85 05/10/18 15:12 Respiratory Rate 18 05/10/18 15:12 Blood Pressure 157/78 05/10/18 15:12 O2 Sat by Pulse Oximetry (%) 99 05/10/18 09:00 Labs: CBC, BMP 05/10/18 06:30 05/10/18 06:30 INR, PTT INR 1.05 (0.83-1.09) 05/03/18 13:38 Problem List - Problems (1) Weakness Code(s): R53.1 - WEAKNESS (2) Acute renal failure (ARF) Code(s): N17.9 - ACUTE KIDNEY FAILURE, UNSPECIFIED Qualifiers: Acute renal failure type: unspecified Qualified Code(s): N17.9 - Acute kidney failure, unspecified (3) Hyperkalemia Code(s): E87.5 - HYPERKALEMIA (4) Hyponatremia Code(s): E87.1 - HYPO-OSMOLALITY AND HYPONATREMIA (5) CHF (congestive heart failure) Code(s): I50.9 - HEART FAILURE, UNSPECIFIED Qualifiers: Heart failure type: unspecified Heart failure chronicity: unspecified Qualified Code(s): I50.9 - Heart failure, unspecified (6) Diabetes Code(s): E11.9 - TYPE 2 DIABETES MELLITUS WITHOUT COMPLICATIONS Qualifiers: Diabetes mellitus type: type 2 (7) HLD (hyperlipidemia) Code(s): E78.5 - HYPERLIPIDEMIA, UNSPECIFIED (8) HTN (hypertension) Code(s): I10 - ESSENTIAL (PRIMARY) HYPERTENSION (9) Osteoarthritis Code(s): M19.90 - UNSPECIFIED OSTEOARTHRITIS, UNSPECIFIED SITE Qualifiers: Osteoarthritis location: knee Osteoarthritis type: unspecified Laterality : right Qualified Code(s): M17.11 - Unilateral primary osteoarthritis, right knee (10) Carotid artery disease Code(s): I77.9 - DISORDER OF ARTERIES AND ARTERIOLES, UNSPECIFIED Qualifiers: Laterality: unspecified laterality (11) CAD (coronary artery disease) Code(s): I25.10 - ATHSCL HEART DISEASE OF [place] CORONARY ARTERY W/O ANG PCTRS
--- NOTE | 2018-05-10 19:58 | PN ---
Progress Note, Physician - Current Medication List Current Medications: Active Medications Clopidogrel Bisulfate (Plavix -) 75 mg PO DAILY [facility] Last Admin: 05/10/18 09:15 Dose: 75 mg Guaifenesin (Diabetic Tussin Dm -) 10 ml PO Q4H PRN PRN Reason: COUGH Heparin Sodium (Porcine) (Heparin -) 5,000 unit SQ TID [facility] Last Admin: 05/10/18 13:50 Dose: 5,000 unit Magnesium Chloride (Slow-Mag -) 64 mg PO DAILY [facility] Last Admin: 05/10/18 09:15 Dose: 64 mg Metoprolol Succinate (Toprol Xl -) 25 mg PO DAILY [facility] Last Admin: 05/10/18 09:15 Dose: 25 mg Nifedipine (Procardia Xl -) 30 mg PO DAILY [facility] Last Admin: 05/10/18 09:16 Dose: 30 mg Pantoprazole Sodium (Protonix -) 40 mg PO DAILY [facility] Last Admin: 05/10/18 09:15 Dose: 40 mg Rosuvastatin Calcium (Crestor -) 10 mg PO HS [facility] Last Admin: 05/09/18 22:27 Dose: 10 mg Sitagliptin Phosphate (Januvia -) 25 mg PO DAILY@0700 [facility] Last Admin: 05/10/18 06:48 Dose: 25 mg - Objective Vital Signs: Vital Signs Temperature 98.3 F 05/10/18 15:12 Pulse Rate 85 05/10/18 15:12 Respiratory Rate 18 05/10/18 15:12 Blood Pressure 157/78 05/10/18 15:12 O2 Sat by Pulse Oximetry (%) 99 05/10/18 09:00 Labs: CBC, BMP 05/10/18 06:30 05/10/18 06:30 INR, PTT INR 1.05 (0.83-1.09) 05/03/18 13:38
[2018-05-10] MEDS: ROSUVASTATIN CA 10 MG TABLET (FP) PO SCH (22:45)
[2018-05-10] MEDS: guaiFENesin/D-M SUGAR-FREE/ACLHOL-FREE 118 ML BOTTLE PO PRN (22:45)
[2018-05-11] MEDS: sitaGLIPtin PHOSPHATE 25 MG TABLET (FP) PO SCH (06:27)
[2018-05-11] MEDS: HEPARIN NA (PORCINE) 5,000 UNITS/ML 1ML VIAL SQ SCH ×2 (06:27→14:37)
[2018-05-11] MEDS ORDERED: PT OWN MED DRAWER 7, Y5N ONE ×2 (06:33→09:20)
[2018-05-11] MEDS: metoPROLOL SUCCINATE 25 MG TAB.SR.24H (FP) PO SCH (09:30)
[2018-05-11] MEDS: MAGNESIUM CL 64 MG TABLET.SA PO SCH (09:30)
[2018-05-11] MEDS: NIFEdipine E.R. 30 MG TABLET (FP) PO SCH (09:30)
[2018-05-11] MEDS: CLOPIDOGREL BISULFATE 75 MG TABLET (FP) PO SCH (09:30)
[2018-05-11] MEDS: PANTOPRAZOLE 40 MG TABLET (FP) PO SCH (09:30)
--- NOTE | 2018-05-11 10:49 | PN ---
Progress Note, Physician Chief Complaint: The patient seen ad examined in her room. Family visiting. Still with some cough. Had CXR done. No infiltrate, No CHF. IV fluids infusing, and well tolerated. History of Present Illness: 88 year old female with hx of CKD ,Hypertension, DM type 2, CAD, CVA who [place] the [place] h/o fall and found to have JACK with hyperkalemia and hyponatremia. - Current Medication List Current Medications: Active Medications Clopidogrel Bisulfate (Plavix -) 75 mg PO DAILY [facility] Last Admin: 05/11/18 09:30 Dose: 75 mg Guaifenesin (Diabetic Tussin Dm -) 10 ml PO Q4H PRN PRN Reason: COUGH Last Admin: 05/10/18 22:45 Dose: 10 ml Heparin Sodium (Porcine) (Heparin -) 5,000 unit SQ TID [facility] Last Admin: 05/11/18 06:27 Dose: 5,000 unit Magnesium Chloride (Slow-Mag -) 64 mg PO DAILY [facility] Last Admin: 05/11/18 09:30 Dose: 64 mg Metoprolol Succinate (Toprol Xl -) 25 mg PO DAILY [facility] Last Admin: 05/11/18 09:30 Dose: 25 mg Nifedipine (Procardia Xl -) 30 mg PO DAILY [facility] Last Admin: 05/11/18 09:30 Dose: 30 mg Pantoprazole Sodium (Protonix -) 40 mg PO DAILY [facility] Last Admin: 05/11/18 09:30 Dose: 40 mg Rosuvastatin Calcium (Crestor -) 10 mg PO HS [facility] Last Admin: 05/10/18 22:45 Dose: 10 mg Sitagliptin Phosphate (Januvia -) 25 mg PO DAILY@0700 [facility] Last Admin: 05/11/18 06:27 Dose: 25 mg - Objective Vital Signs: Vital Signs Temperature 98.1 F 05/11/18 06:41 Pulse Rate 87 05/11/18 06:41 Respiratory Rate 20 05/11/18 06:41 Blood Pressure 147/98 05/11/18 06:41 O2 Sat by Pulse Oximetry (%) 99 05/10/18 21:00 Constitutional: Yes: Well Nourished, Anxious Eyes: Yes: Conjunctiva Clear HENT: Yes: Atraumatic Neck: Yes: Supple Cardiovascular: Yes: Regular Rate and Rhythm, S1, S2 Respiratory: Yes: Regular, Cough, Diminished Gastrointestinal: Yes: Normal Bowel Sounds, Soft, Abdomen, Obese Genitourinary: No: CVA Tenderness - Left, CVA Tenderness - Right, Hematuria Edema: No Labs: CBC, BMP 05/10/18 06:30 INR, PTT INR 1.05 (0.83-1.09) 05/03/18 13:38 Problem List - Problems (1) Acute renal failure (ARF) Code(s): N17.9 - ACUTE KIDNEY FAILURE, UNSPECIFIED Qualifiers: Acute renal failure type: unspecified Qualified Code(s): N17.9 - Acute kidney failure, unspecified (2) CKD (chronic kidney disease) Code(s): N18.9 - CHRONIC KIDNEY DISEASE, UNSPECIFIED Qualifiers: (3) Hyperkalemia Code(s): E87.5 - HYPERKALEMIA (4) Hyponatremia Code(s): E87.1 - HYPO-OSMOLALITY AND HYPONATREMIA (5) Weakness Code(s): R53.1 - WEAKNESS (6) CAD (coronary artery disease) Code(s): I25.10 - ATHSCL HEART DISEASE OF [place] CORONARY ARTERY W/O ANG PCTRS (7) CHF (congestive heart failure) Code(s): I50.9 - HEART FAILURE, UNSPECIFIED Qualifiers: Heart failure type: unspecified Heart failure chronicity: unspecified Qualified Code(s): I50.9 - Heart failure, unspecified (8) Chronic kidney disease Code(s): N18.9 - CHRONIC KIDNEY DISEASE, UNSPECIFIED Qualifiers: Chronic kidney disease stage: unspecified stage Qualified Code(s): N18.9 - Chronic kidney disease, unspecified (9) HLD (hyperlipidemia) Code(s): E78.5 - HYPERLIPIDEMIA, UNSPECIFIED (10) HTN (hypertension) Code(s): I10 - ESSENTIAL (PRIMARY) HYPERTENSION (11) History of stroke Code(s): Z86.73 - PRSNL HX OF TIA (TIA), AND CEREB INFRC W/O RESID DEFICITS Assessment/Plan 88 year old woman with hx of CKD (baseline Cr ~1.6), Hypertension, DM type 2, CAD, CVA who [place] and found to have JACK with hyperkalemia and hyponatremia. JACK on CKD likely due to renal hypoprofusion in setting from hypovolemia. Hyperkalemia ..Corrected Hypovolemic Hyponatremia . Normal saline well tolerated. Cough...Possibly laryngeal. CXR clear. s/p Fall Will monitor the Renal/ Electrolyte profile closely. Will C/C IV fluids. Kandy Gomez MD
[2018-05-11 12:32] LABS: ALBUMIN 2.8 g/dl (3.4-5.0); ALK PHOS 63 U/L (45-117); ANION GAP 8 MMOL/L (8-16); BILIRUBIN,TOTAL 0.5 mg/dL (0.2-1); BLOOD UREA NITROGEN 26 mg/dL (7-18); CALCIUM 9.4 mg/dL (8.5-10.1); CHLORIDE 100 mmol/L (98-107); CO2 19 mmol/L (21-32); CREATININE 1.4 mg/dL (0.55-1.3); GLUCOSE,RANDOM 114 mg/dL (74-106); POTASSIUM 4.9 mmol/L (3.5-5.1); SGOT/AST 18 U/L (15-37); SGPT/ALT 28 U/L (13-61); SODIUM 127 mmol/L (136-145); TOT PROT 6.4 g/dl (6.4-8.2)
[2018-05-11] MEDS ORDERED: FUROSEMIDE 40 MG/4 ML INJECTABLE VIAL IVPUSH SCH (12:39)
[2018-05-11 16:28] LABS: BASO % 0.8 % (0-2.0); EOS % 6.5 % (0-4.5); HEMATOCRIT 33.9 % (32.4-45.2); HEMOGLOBIN 11.8 GM/dL (10.7-15.3); LYMPH % 15.3 % (8-40); MCHC 34.8 g/dl (32.0-36.0); MEAN CELL VOLUME 83.4 fl (80-96); MEAN PLT VOLUME 8.7 fl (7.5-11.1); NEUT % 63.4 % (42.8-82.8); PLATELET COUNT 323 K/MM3 (134-434); RBC 4.07 M/mm3 (3.60-5.2); RDW 14.9 % (11.6-15.6); WHITE BLOOD COUNT 8.6 K/mm3 (4.0-10.0)
[2018-05-11] MEDS: ROSUVASTATIN CA 10 MG TABLET (FP) PO SCH (21:21)
--- NOTE | 2018-05-11 23:06 | PN ---
Progress Note, Physician History of Present Illness: Pt complaining of some sob - Current Medication List Current Medications: Active Medications Clopidogrel Bisulfate (Plavix -) 75 mg PO DAILY [facility] Last Admin: 05/11/18 09:30 Dose: 75 mg Furosemide (Lasix Injection -) 40 mg IVPUSH DAILY [facility] Last Admin: 05/11/18 14:37 Dose: 40 mg Guaifenesin (Diabetic Tussin Dm -) 10 ml PO Q4H PRN PRN Reason: COUGH Last Admin: 05/10/18 22:45 Dose: 10 ml Magnesium Chloride (Slow-Mag -) 64 mg PO DAILY [facility] Last Admin: 05/11/18 09:30 Dose: 64 mg Metoprolol Succinate (Toprol Xl -) 25 mg PO DAILY [facility] Last Admin: 05/11/18 09:30 Dose: 25 mg Nifedipine (Procardia Xl -) 30 mg PO DAILY [facility] Last Admin: 05/11/18 09:30 Dose: 30 mg Pantoprazole Sodium (Protonix -) 40 mg PO DAILY [facility] Last Admin: 05/11/18 09:30 Dose: 40 mg Rosuvastatin Calcium (Crestor -) 10 mg PO HS [facility] Last Admin: 05/11/18 21:21 Dose: 10 mg Sitagliptin Phosphate (Januvia -) 25 mg PO DAILY@0700 [facility] Last Admin: 05/11/18 06:27 Dose: 25 mg - Objective Vital Signs: Vital Signs Temperature 98.1 F 05/11/18 21:00 Pulse Rate 79 05/11/18 21:00 Respiratory Rate 20 05/11/18 21:00 Blood Pressure 146/74 05/11/18 21:00 O2 Sat by Pulse Oximetry (%) 99 05/11/18 21:00 Constitutional: Yes: Well Nourished Neck: Yes: WNL, Supple Cardiovascular: Yes: WNL, Regular Rate and Rhythm Respiratory: Yes: Diminished Gastrointestinal: Yes: WNL, Normal Bowel Sounds, Soft Labs: CBC, BMP 05/11/18 14:45 05/11/18 06:00 INR, PTT INR 1.05 (0.83-1.09) 05/03/18 13:38 Problem List - Problems (1) CHF (congestive heart failure) Assessment/Plan: BNP elevated to > 6000 Will give dose of IV lasix Cardio consult Check echo Code(s): I50.9 - HEART FAILURE, UNSPECIFIED Qualifiers: Heart failure type: unspecified Heart failure chronicity: unspecified Qualified Code(s): I50.9 - Heart failure, unspecified (2) Weakness Assessment/Plan: Multifactorial Electrolyte imbalance Urine culture only showed 20,000-30,000 and 10,000 counts No antibxs needed Code(s): R53.1 - WEAKNESS (3) Acute renal failure (ARF) Assessment/Plan: BUN/creatinine improved Renal US showed atrophied kidneys Code(s): N17.9 - ACUTE KIDNEY FAILURE, UNSPECIFIED Qualifiers: Acute renal failure type: unspecified Qualified Code(s): N17.9 - Acute kidney failure, unspecified (4) Hyperkalemia Assessment/Plan: Resolved Code(s): E87.5 - HYPERKALEMIA (5) Hyponatremia Assessment/Plan: Improved Code(s): E87.1 - HYPO-OSMOLALITY AND HYPONATREMIA (6) Diabetes Code(s): E11.9 - TYPE 2 DIABETES MELLITUS WITHOUT COMPLICATIONS Qualifiers: Diabetes mellitus type: type 2 (7) HLD (hyperlipidemia) Code(s): E78.5 - HYPERLIPIDEMIA, UNSPECIFIED (8) HTN (hypertension) Code(s): I10 - ESSENTIAL (PRIMARY) HYPERTENSION (9) Osteoarthritis Code(s): M19.90 - UNSPECIFIED OSTEOARTHRITIS, UNSPECIFIED SITE Qualifiers: Osteoarthritis location: knee Osteoarthritis type: unspecified Laterality : right Qualified Code(s): M17.11 - Unilateral primary osteoarthritis, right knee (10) Carotid artery disease Code(s): I77.9 - DISORDER OF ARTERIES AND ARTERIOLES, UNSPECIFIED Qualifiers: Laterality: unspecified laterality (11) CAD (coronary artery disease) Code(s): I25.10 - ATHSCL HEART DISEASE OF [place] CORONARY ARTERY W/O ANG PCTRS
[2018-05-12] MEDS: sitaGLIPtin PHOSPHATE 25 MG TABLET (FP) PO SCH (06:31)
[2018-05-12 08:29] LABS: ALBUMIN 2.8 g/dl (3.4-5.0); ALK PHOS 63 U/L (45-117); ANION GAP 9 MMOL/L (8-16); BILIRUBIN,TOTAL 0.6 mg/dL (0.2-1); BLOOD UREA NITROGEN 37 mg/dL (7-18); CALCIUM 9.8 mg/dL (8.5-10.1); CHLORIDE 97 mmol/L (98-107); CO2 22 mmol/L (21-32); CREATININE 1.9 mg/dL (0.55-1.3); GLUCOSE,RANDOM 99 mg/dL (74-106); POTASSIUM 5.1 mmol/L (3.5-5.1); SGOT/AST 19 U/L (15-37); SGPT/ALT 28 U/L (13-61); SODIUM 128 mmol/L (136-145); TOT PROT 6.5 g/dl (6.4-8.2)
[2018-05-12 08:44] LABS: BASO % 0.9 % (0-2.0); EOS % 8.6 % (0-4.5); HEMATOCRIT 34.4 % (32.4-45.2); HEMOGLOBIN 12.3 GM/dL (10.7-15.3); LYMPH % 17.5 % (8-40); MCH 29.6 pg (25.7-33.7); MCHC 35.6 g/dl (32.0-36.0); MEAN CELL VOLUME 83.1 fl (80-96); MEAN PLT VOLUME 8.6 fl (7.5-11.1); MONO % 12.9 % (3.8-10.2); NEUT % 60.1 % (42.8-82.8); PLATELET COUNT 327 K/MM3 (134-434); RBC 4.14 M/mm3 (3.60-5.2); RDW 14.8 % (11.6-15.6); WHITE BLOOD COUNT 8.4 K/mm3 (4.0-10.0)
[2018-05-12] MEDS ORDERED: PT OWN MED DRAWER 7, Y5N ONE (09:25)
[2018-05-12] MEDS: PANTOPRAZOLE 40 MG TABLET (FP) PO SCH (09:29)
[2018-05-12] MEDS: NIFEdipine E.R. 30 MG TABLET (FP) PO SCH (09:29)
[2018-05-12] MEDS: CLOPIDOGREL BISULFATE 75 MG TABLET (FP) PO SCH (09:29)
[2018-05-12] MEDS: MAGNESIUM CL 64 MG TABLET.SA PO SCH (09:29)
[2018-05-12] MEDS: metoPROLOL SUCCINATE 25 MG TAB.SR.24H (FP) PO SCH (09:30)
--- NOTE | 2018-05-12 12:23 | PN ---
Progress Note (short form) - Note Progress Note: Renal follow up for JACK on CKD No acute complaints. no sob, cp, abd pain making urine s/p Lasix yesterday for sob Vital Signs Temperature 98.2 F 05/12/18 09:00 Pulse Rate 79 05/12/18 09:00 Respiratory Rate 20 05/12/18 09:00 Blood Pressure 142/78 05/12/18 09:00 O2 Sat by Pulse Oximetry (%) 99 05/11/18 21:00 Intake & Output 05/09/18 05/10/18 05/11/18 05/12/18 23:59 23:59 23:59 23:59 Intake Total 2290 1665 540 300 Balance 2290 1665 540 300 Weight 68.946 kg NAD awake and alert neck supple RRR CTA, no rales or wheeze CBC, BMP 05/12/18 06:00 05/12/18 06:00 Laboratory Tests 05/09/18 05/10/18 05/11/18 19:30 06:30 06:00 Creatinine 1.8 H 1.5 H 1.4 H Creat Clearance w eGFR Calcium Albumin 05/12/18 06:00 Creatinine 1.9 H Creat Clearance w eGFR 25.06 Calcium 9.8 Albumin 2.8 L Current Medications Clopidogrel Bisulfate (Plavix -) 75 mg PO DAILY [facility] Last Admin: 05/12/18 09:29 Dose: 75 mg Guaifenesin (Diabetic Tussin Dm -) 10 ml PO Q4H PRN PRN Reason: COUGH Last Admin: 05/10/18 22:45 Dose: 10 ml Magnesium Chloride (Slow-Mag -) 64 mg PO DAILY [facility] Last Admin: 05/12/18 09:29 Dose: 64 mg Metoprolol Succinate (Toprol Xl -) 25 mg PO DAILY [facility] Last Admin: 05/12/18 09:30 Dose: 25 mg Nifedipine (Procardia Xl -) 30 mg PO DAILY [facility] Last Admin: 05/12/18 09:29 Dose: 30 mg Pantoprazole Sodium (Protonix -) 40 mg PO DAILY [facility] Last Admin: 05/12/18 09:29 Dose: 40 mg Rosuvastatin Calcium (Crestor -) 10 mg PO HS [facility] Last Admin: 05/11/18 21:21 Dose: 10 mg Sitagliptin Phosphate (Januvia -) 25 mg PO DAILY@0700 [facility] Last Admin: 05/12/18 06:31 Dose: 25 mg 88 year old woman with hx of CKD (baseline Cr ~1.6), Hypertension, DM type 2, CAD, CVA who presented from the [place] with fall and found to have JACK with hyperkalemia and hyponatremia. #JACK on CKD likely due to renal hypoprofusion in setting from hypovolemia +/- ARB #Hyperkalemia in setting of JACK #Susepcted Hypovolemic Hyponatremia #s/p Fall #Hypertension #DM Type 2 Renal function improved the weekend to Cr of 1.4 but lg to 1.9 today likely due to fluid shifts from Lasix At this time given fluid shifts would withhold ARB if renal function stable can be discharged with outpatient follow up Serum Na stable, no indication for 3% saline ECHO pending Thank you Javon Cota DO
--- NOTE | 2018-05-12 12:33 | PN ---
Progress Note, Physician History of Present Illness: stable no new issues nephro following - Current Medication List Current Medications: Active Medications Clopidogrel Bisulfate (Plavix -) 75 mg PO DAILY [facility] Last Admin: 05/12/18 09:29 Dose: 75 mg Guaifenesin (Diabetic Tussin Dm -) 10 ml PO Q4H PRN PRN Reason: COUGH Last Admin: 05/10/18 22:45 Dose: 10 ml Magnesium Chloride (Slow-Mag -) 64 mg PO DAILY [facility] Last Admin: 05/12/18 09:29 Dose: 64 mg Metoprolol Succinate (Toprol Xl -) 25 mg PO DAILY [facility] Last Admin: 05/12/18 09:30 Dose: 25 mg Nifedipine (Procardia Xl -) 30 mg PO DAILY [facility] Last Admin: 05/12/18 09:29 Dose: 30 mg Pantoprazole Sodium (Protonix -) 40 mg PO DAILY [facility] Last Admin: 05/12/18 09:29 Dose: 40 mg Rosuvastatin Calcium (Crestor -) 10 mg PO HS [facility] Last Admin: 05/11/18 21:21 Dose: 10 mg Sitagliptin Phosphate (Januvia -) 25 mg PO DAILY@0700 [facility] Last Admin: 05/12/18 06:31 Dose: 25 mg - Objective Vital Signs: Vital Signs Temperature 98.2 F 05/12/18 09:00 Pulse Rate 79 05/12/18 09:00 Respiratory Rate 20 05/12/18 09:00 Blood Pressure 142/78 05/12/18 09:00 O2 Sat by Pulse Oximetry (%) 99 05/11/18 21:00 Constitutional: Yes: No Distress, Calm Cardiovascular: Yes: S1, S2 Respiratory: Yes: Regular, CTA Bilaterally Gastrointestinal: Yes: Normal Bowel Sounds, Soft Musculoskeletal: Yes: WNL Extremities: Yes: Other Edema: LLE: 1+, RLE: 1+ Neurological: Yes: Alert, Oriented Psychiatric: Yes: Alert, Oriented Labs: CBC, BMP 05/12/18 06:00 05/12/18 06:00 INR, PTT INR 1.05 (0.83-1.09) 05/03/18 13:38 Assessment/Plan Assessment/Plan Problem List - Problems (1) leukocytosis (2) CAD (coronary artery disease) Code(s): I25.10 - ATHSCL HEART DISEASE OF [place] CORONARY ARTERY W/O ANG PCTRS (3) HTN (hypertension) Code(s): I10 - ESSENTIAL (PRIMARY) HYPERTENSION (4) Chronic kidney disease Code(s): N18.9 - CHRONIC KIDNEY DISEASE, UNSPECIFIED Qualifiers: Chronic kidney disease stage: unspecified stage Qualified Code(s): N18.9 - Chronic kidney disease, unspecified (5) Diabetes Code(s): E11.9 - TYPE 2 DIABETES MELLITUS WITHOUT COMPLICATIONS (6) HLD (hyperlipidemia) Code(s): E78.5 - HYPERLIPIDEMIA, UNSPECIFIED (7) Osteoarthritis Code(s): M19.90 - UNSPECIFIED OSTEOARTHRITIS, UNSPECIFIED SITE Qualifiers: Osteoarthritis location: knee Osteoarthritis type: unspecified Laterality : right Qualified Code(s): M17.11 - Unilateral primary osteoarthritis, right knee (8) CHF (congestive heart failure) Code(s): I50.9 - HEART FAILURE, UNSPECIFIED Qualifiers: Heart failure type: unspecified Heart failure chronicity: unspecified Qualified Code(s): I50.9 - Heart failure, unspecified 9 uti plan continue current mgmt rest as per the team stable off of abx plan to diures
[2018-05-12] MEDS: ROSUVASTATIN CA 10 MG TABLET (FP) PO SCH (22:06)
--- NOTE | 2018-05-12 23:34 | PN ---
Progress Note, Physician History of Present Illness: No new complaints - Current Medication List Current Medications: Active Medications Clopidogrel Bisulfate (Plavix -) 75 mg PO DAILY [facility] Last Admin: 05/12/18 09:29 Dose: 75 mg Guaifenesin (Diabetic Tussin Dm -) 10 ml PO Q4H PRN PRN Reason: COUGH Last Admin: 05/10/18 22:45 Dose: 10 ml Magnesium Chloride (Slow-Mag -) 64 mg PO DAILY [facility] Last Admin: 05/12/18 09:29 Dose: 64 mg Metoprolol Succinate (Toprol Xl -) 25 mg PO DAILY [facility] Last Admin: 05/12/18 09:30 Dose: 25 mg Nifedipine (Procardia Xl -) 30 mg PO DAILY [facility] Last Admin: 05/12/18 09:29 Dose: 30 mg Pantoprazole Sodium (Protonix -) 40 mg PO DAILY [facility] Last Admin: 05/12/18 09:29 Dose: 40 mg Rosuvastatin Calcium (Crestor -) 10 mg PO HS [facility] Last Admin: 05/12/18 22:06 Dose: 10 mg Sitagliptin Phosphate (Januvia -) 25 mg PO DAILY@0700 [facility] Last Admin: 05/12/18 06:31 Dose: 25 mg - Objective Vital Signs: Vital Signs Temperature 97.6 F 05/12/18 18:00 Pulse Rate 73 05/12/18 18:00 Respiratory Rate 20 05/12/18 18:00 Blood Pressure 150/82 05/12/18 18:00 O2 Sat by Pulse Oximetry (%) 99 05/11/18 21:00 Neck: Yes: WNL, Supple Cardiovascular: Yes: WNL, Regular Rate and Rhythm Respiratory: Yes: WNL, Regular, CTA Bilaterally Gastrointestinal: Yes: WNL, Normal Bowel Sounds, Soft Edema: No Labs: CBC, BMP 05/12/18 06:00 05/12/18 06:00 INR, PTT INR 1.05 (0.83-1.09) 05/03/18 13:38 Problem List - Problems (1) CHF (congestive heart failure) Assessment/Plan: BNP elevated to > 6000 Pt given dose of IV lasix yesterday Will hold diuretic for now due to ARF Code(s): I50.9 - HEART FAILURE, UNSPECIFIED Qualifiers: Heart failure type: unspecified Heart failure chronicity: unspecified Qualified Code(s): I50.9 - Heart failure, unspecified (2) Weakness Assessment/Plan: Multifactorial Electrolyte imbalance Urine culture only showed 20,000-30,000 and 10,000 counts No antibxs needed Code(s): R53.1 - WEAKNESS (3) Acute renal failure (ARF) Assessment/Plan: BUN/creatinine improved DC planning for am Renal US showed atrophied kidneys Code(s): N17.9 - ACUTE KIDNEY FAILURE, UNSPECIFIED Qualifiers: Acute renal failure type: unspecified Qualified Code(s): N17.9 - Acute kidney failure, unspecified (4) Hyperkalemia Assessment/Plan: Resolved Code(s): E87.5 - HYPERKALEMIA (5) Hyponatremia Assessment/Plan: Improved Code(s): E87.1 - HYPO-OSMOLALITY AND HYPONATREMIA (6) Diabetes Assessment/Plan: Cont sliding scale w/ coverage/januvia Code(s): E11.9 - TYPE 2 DIABETES MELLITUS WITHOUT COMPLICATIONS Qualifiers: Diabetes mellitus type: type 2 (7) HLD (hyperlipidemia) Code(s): E78.5 - HYPERLIPIDEMIA, UNSPECIFIED (8) HTN (hypertension) Code(s): I10 - ESSENTIAL (PRIMARY) HYPERTENSION (9) Osteoarthritis Code(s): M19.90 - UNSPECIFIED OSTEOARTHRITIS, UNSPECIFIED SITE Qualifiers: Osteoarthritis location: knee Osteoarthritis type: unspecified Laterality : right Qualified Code(s): M17.11 - Unilateral primary osteoarthritis, right knee (10) Carotid artery disease Code(s): I77.9 - DISORDER OF ARTERIES AND ARTERIOLES, UNSPECIFIED Qualifiers: Laterality: unspecified laterality (11) CAD (coronary artery disease) Code(s): I25.10 - ATHSCL HEART DISEASE OF [place] CORONARY ARTERY W/O ANG PCTRS
[2018-05-13] MEDS: sitaGLIPtin PHOSPHATE 25 MG TABLET (FP) PO SCH (06:40)
[2018-05-13 07:17] LABS: BASO % 0.8 % (0-2.0); EOS % 8.7 % (0-4.5); HEMATOCRIT 37.1 % (32.4-45.2); HEMOGLOBIN 12.1 GM/dL (10.7-15.3); LYMPH % 15.5 % (8-40); MCH 27.4 pg (25.7-33.7); MCHC 32.5 g/dl (32.0-36.0); MEAN CELL VOLUME 84.2 fl (80-96); MEAN PLT VOLUME 8.2 fl (7.5-11.1); MONO % 11.4 % (3.8-10.2); NEUT % 63.6 % (42.8-82.8); PLATELET COUNT 305 K/MM3 (134-434); RDW 14.4 % (11.6-15.6); WHITE BLOOD COUNT 8.7 K/mm3 (4.0-10.0)
[2018-05-13 07:52] LABS: ALBUMIN 2.7 g/dl (3.4-5.0); ALK PHOS 61 U/L (45-117); ANION GAP 7 MMOL/L (8-16); BILIRUBIN,TOTAL 0.5 mg/dL (0.2-1); BLOOD UREA NITROGEN 42 mg/dL (7-18); CALCIUM 9.8 mg/dL (8.5-10.1); CHLORIDE 97 mmol/L (98-107); CO2 23 mmol/L (21-32); CREATININE 1.9 mg/dL (0.55-1.3); GLUCOSE,RANDOM 104 mg/dL (74-106); POTASSIUM 5.1 mmol/L (3.5-5.1); SGOT/AST 16 U/L (15-37); SGPT/ALT 25 U/L (13-61); SODIUM 127 mmol/L (136-145); TOT PROT 6.4 g/dl (6.4-8.2)
[2018-05-13] MEDS: NIFEdipine E.R. 30 MG TABLET (FP) PO SCH (10:28)
[2018-05-13] MEDS: metoPROLOL SUCCINATE 25 MG TAB.SR.24H (FP) PO SCH (10:29)
[2018-05-13] MEDS: CLOPIDOGREL BISULFATE 75 MG TABLET (FP) PO SCH (10:29)
[2018-05-13] MEDS: PANTOPRAZOLE 40 MG TABLET (FP) PO SCH (10:29)
[2018-05-13] MEDS: MAGNESIUM CL 64 MG TABLET.SA PO SCH (10:31)
--- NOTE | 2018-05-13 11:50 | PN ---
Progress Note, Physician History of Present Illness: stable doing well no issues being diuresed - Current Medication List Current Medications: Active Medications Clopidogrel Bisulfate (Plavix -) 75 mg PO DAILY [facility] Last Admin: 05/13/18 10:29 Dose: 75 mg Guaifenesin (Diabetic Tussin Dm -) 10 ml PO Q4H PRN PRN Reason: COUGH Last Admin: 05/10/18 22:45 Dose: 10 ml Magnesium Chloride (Slow-Mag -) 64 mg PO DAILY [facility] Last Admin: 05/13/18 10:31 Dose: 64 mg Metoprolol Succinate (Toprol Xl -) 25 mg PO DAILY [facility] Last Admin: 05/13/18 10:29 Dose: 25 mg Nifedipine (Procardia Xl -) 30 mg PO DAILY [facility] Last Admin: 05/13/18 10:28 Dose: 30 mg Pantoprazole Sodium (Protonix -) 40 mg PO DAILY [facility] Last Admin: 05/13/18 10:29 Dose: 40 mg Rosuvastatin Calcium (Crestor -) 10 mg PO HS [facility] Last Admin: 05/12/18 22:06 Dose: 10 mg Sitagliptin Phosphate (Januvia -) 25 mg PO DAILY@0700 [facility] Last Admin: 05/13/18 06:40 Dose: 25 mg - Objective Vital Signs: Vital Signs Temperature 98.2 F 05/13/18 06:47 Pulse Rate 82 05/13/18 06:47 Respiratory Rate 20 05/13/18 06:47 Blood Pressure 167/75 05/13/18 06:47 O2 Sat by Pulse Oximetry (%) 99 05/11/18 21:00 Constitutional: Yes: No Distress, Calm Cardiovascular: Yes: S1, S2 Respiratory: Yes: Regular, CTA Bilaterally Gastrointestinal: Yes: Normal Bowel Sounds, Soft Musculoskeletal: Yes: WNL Extremities: Yes: WNL Edema: LLE: 1+, RLE: 1+ Neurological: Yes: Alert, Oriented Labs: CBC, BMP 05/13/18 06:45 05/13/18 06:45 INR, PTT INR 1.05 (0.83-1.09) 05/03/18 13:38 Assessment/Plan Assessment/Plan Problem List - Problems (1) leukocytosis (2) CAD (coronary artery disease) Code(s): I25.10 - ATHSCL HEART DISEASE OF [place] CORONARY ARTERY W/O ANG PCTRS (3) HTN (hypertension) Code(s): I10 - ESSENTIAL (PRIMARY) HYPERTENSION (4) Chronic kidney disease Code(s): N18.9 - CHRONIC KIDNEY DISEASE, UNSPECIFIED Qualifiers: Chronic kidney disease stage: unspecified stage Qualified Code(s): N18.9 - Chronic kidney disease, unspecified (5) Diabetes Code(s): E11.9 - TYPE 2 DIABETES MELLITUS WITHOUT COMPLICATIONS (6) HLD (hyperlipidemia) Code(s): E78.5 - HYPERLIPIDEMIA, UNSPECIFIED (7) Osteoarthritis Code(s): M19.90 - UNSPECIFIED OSTEOARTHRITIS, UNSPECIFIED SITE Qualifiers: Osteoarthritis location: knee Osteoarthritis type: unspecified Laterality : right Qualified Code(s): M17.11 - Unilateral primary osteoarthritis, right knee (8) CHF (congestive heart failure) Code(s): I50.9 - HEART FAILURE, UNSPECIFIED Qualifiers: Heart failure type: unspecified Heart failure chronicity: unspecified Qualified Code(s): I50.9 - Heart failure, unspecified 9 uti plan continue current mgmt rest as per the team stable off of abx rest as per nephrology
--- NOTE | 2018-05-13 12:27 | ECHO ---
Name: CIELO BENITEZ Exam:Adult Echocardiogram Study Date: 05/13/2018 09:33 AM Age: 88 yrs Reason For Study: CHF Height: 62 in Weight: 152 lb BSA: 1.7 m2 Doppler Measurements & Calculations Med Peak E' Ra: 10.1 cm/sec Lat Peak E' Ra: 9.2 cm/sec Procedure A complete two-dimensional transthoracic echocardiogram was performed (2D, M-mode, Doppler and color flow Doppler). The study was technically difficult with many images being suboptimal in quality. Left Ventricle Left ventricular systolic function is severely reduced. Ejection Fraction = 25%. There is severe glob al hypokinesis of the left ventricle. Right Ventricle The right ventricle is normal in size and function. Mitral Valve The mitral valve is not well visualized. Tricuspid Valve The tricuspid valve is not well visualized. Aortic Valve The aortic valve is not well visualized. Pulmonic Valve The pulmonic valve is not well visualized. Great Vessels The aortic root is not well visualized. Pericardium/Pleura There is no pericardial effusion. There is no pleural effusion. Interpretation Summary The study was technically difficult with many images being suboptimal in quality. Ejection Fraction = 25%. Left ventricular systolic function is severely reduced. There is severe global hypokinesis of the left ventricle. MD Stevenson Harmon 05/13/2018 12:26 PM
--- NOTE | 2018-05-13 16:57 | PN ---
Progress Note (short form) - Note Progress Note: Renal follow up for JACK on CKD No acute complaints. no sob, chest pain, abd pain, N/V/D able to ambulate w/o dyspnea as per family making urine Vital Signs Temperature 98.0 F 05/13/18 14:30 Pulse Rate 81 05/13/18 14:30 Respiratory Rate 16 05/13/18 14:30 Blood Pressure 130/72 05/13/18 14:30 O2 Sat by Pulse Oximetry (%) 99 05/13/18 09:00 Intake & Output 05/10/18 05/11/18 05/12/18 05/13/18 23:59 23:59 23:59 23:59 Intake Total 1665 540 300 Balance 1665 540 300 Weight 68.946 kg NAD awake and alert neck supple RRR CTA, no rales or wheeze CBC, BMP 05/13/18 06:45 05/13/18 06:45 Current Medications Clopidogrel Bisulfate (Plavix -) 75 mg PO DAILY [facility] Last Admin: 05/13/18 10:29 Dose: 75 mg Guaifenesin (Diabetic Tussin Dm -) 10 ml PO Q4H PRN PRN Reason: COUGH Last Admin: 05/10/18 22:45 Dose: 10 ml Magnesium Chloride (Slow-Mag -) 64 mg PO DAILY [facility] Last Admin: 05/13/18 10:31 Dose: 64 mg Metoprolol Succinate (Toprol Xl -) 25 mg PO DAILY [facility] Last Admin: 05/13/18 10:29 Dose: 25 mg Nifedipine (Procardia Xl -) 30 mg PO DAILY [facility] Last Admin: 05/13/18 10:28 Dose: 30 mg Pantoprazole Sodium (Protonix -) 40 mg PO DAILY [facility] Last Admin: 05/13/18 10:29 Dose: 40 mg Rosuvastatin Calcium (Crestor -) 10 mg PO HS [facility] Last Admin: 05/12/18 22:06 Dose: 10 mg Sitagliptin Phosphate (Januvia -) 25 mg PO DAILY@0700 [facility] Last Admin: 05/13/18 06:40 Dose: 25 mg 88 year old woman with hx of CKD (baseline Cr ~1.6), Hypertension, DM type 2, CAD, CVA who presented from the [place] with fall and found to have JACK with hyperkalemia and hyponatremia. #JACK on CKD likely due to renal hypoprofusion in setting from hypovolemia +/- ARB #Hyperkalemia in setting of JACK now resolved #Chronic Hyponatremia #s/p Fall #Hypertension #DM Type 2 Renal function stable as of today and pt is w/o any overt electrolyte abnormality would maintain off PRISCILLA or ARB for now no indication for IVF at this time ECHO showed LVEF of 25% which was done from prior echo done in april, may be related to acute fluid overload pt had on Saturday can consider cardiology evaluation serum Na stable at this time, no indication for 3% saline Thank you Javon Cota DO
[2018-05-13] MEDS ORDERED: PT OWN MED DRAWER 7, Y5N ONE ×3 (17:56→18:17)
[2018-05-13] MEDS: guaiFENesin/D-M SUGAR-FREE/ACLHOL-FREE 118 ML BOTTLE PO PRN (18:13)
--- NOTE | 2018-05-13 21:46 | PN ---
Progress Note, Physician History of Present Illness: No new complaints No dyspnea - Current Medication List Current Medications: Active Medications Clopidogrel Bisulfate (Plavix -) 75 mg PO DAILY [facility] Last Admin: 05/13/18 10:29 Dose: 75 mg Guaifenesin (Diabetic Tussin Dm -) 10 ml PO Q4H PRN PRN Reason: COUGH Last Admin: 05/13/18 18:13 Dose: 10 ml Magnesium Chloride (Slow-Mag -) 64 mg PO DAILY [facility] Last Admin: 05/13/18 10:31 Dose: 64 mg Metoprolol Succinate (Toprol Xl -) 25 mg PO DAILY [facility] Last Admin: 05/13/18 10:29 Dose: 25 mg Nifedipine (Procardia Xl -) 30 mg PO DAILY [facility] Last Admin: 05/13/18 10:28 Dose: 30 mg Pantoprazole Sodium (Protonix -) 40 mg PO DAILY [facility] Last Admin: 05/13/18 10:29 Dose: 40 mg Rosuvastatin Calcium (Crestor -) 10 mg PO HS [facility] Last Admin: 05/12/18 22:06 Dose: 10 mg Sitagliptin Phosphate (Januvia -) 25 mg PO DAILY@0700 [facility] Last Admin: 05/13/18 06:40 Dose: 25 mg - Objective Vital Signs: Vital Signs Temperature 98.0 F 05/13/18 14:30 Pulse Rate 81 05/13/18 14:30 Respiratory Rate 16 05/13/18 14:30 Blood Pressure 130/72 05/13/18 14:30 O2 Sat by Pulse Oximetry (%) 99 05/13/18 09:00 Neck: Yes: WNL, Supple Cardiovascular: Yes: WNL, Regular Rate and Rhythm Respiratory: Yes: WNL, Regular, CTA Bilaterally Gastrointestinal: Yes: WNL, Normal Bowel Sounds, Soft Labs: CBC, BMP 05/13/18 06:45 05/13/18 06:45 INR, PTT INR 1.05 (0.83-1.09) 05/03/18 13:38 Problem List - Problems (1) CHF (congestive heart failure) Assessment/Plan: BNP elevated to > 6000 Pt given dose of IV lasix 05/11/18 Echo showed EF of 25% Will get cardio consult Possible dc planning for tomorrow Code(s): I50.9 - HEART FAILURE, UNSPECIFIED Qualifiers: Heart failure type: unspecified Heart failure chronicity: unspecified Qualified Code(s): I50.9 - Heart failure, unspecified (2) Weakness Assessment/Plan: Multifactorial Electrolyte imbalance Urine culture only showed 20,000-30,000 and 10,000 counts No antibxs needed Code(s): R53.1 - WEAKNESS (3) Acute renal failure (ARF) Assessment/Plan: BUN/creatinine improved Renal US showed atrophied kidneys Code(s): N17.9 - ACUTE KIDNEY FAILURE, UNSPECIFIED Qualifiers: Acute renal failure type: unspecified Qualified Code(s): N17.9 - Acute kidney failure, unspecified (4) Hyperkalemia Assessment/Plan: Resolved Code(s): E87.5 - HYPERKALEMIA (5) Hyponatremia Code(s): E87.1 - HYPO-OSMOLALITY AND HYPONATREMIA (6) Diabetes Code(s): E11.9 - TYPE 2 DIABETES MELLITUS WITHOUT COMPLICATIONS Qualifiers: Diabetes mellitus type: type 2 (7) HLD (hyperlipidemia) Code(s): E78.5 - HYPERLIPIDEMIA, UNSPECIFIED (8) HTN (hypertension) Assessment/Plan: Cont nifedipine/metoprolol BP stable Code(s): I10 - ESSENTIAL (PRIMARY) HYPERTENSION (9) Osteoarthritis Code(s): M19.90 - UNSPECIFIED OSTEOARTHRITIS, UNSPECIFIED SITE Qualifiers: Osteoarthritis location: knee Osteoarthritis type: unspecified Laterality : right Qualified Code(s): M17.11 - Unilateral primary osteoarthritis, right knee (10) Carotid artery disease Code(s): I77.9 - DISORDER OF ARTERIES AND ARTERIOLES, UNSPECIFIED Qualifiers: Laterality: unspecified laterality (11) CAD (coronary artery disease) Assessment/Plan: Cont plavix Code(s): I25.10 - ATHSCL HEART DISEASE OF [place] CORONARY ARTERY W/O ANG PCTRS
[2018-05-13] MEDS: ROSUVASTATIN CA 10 MG TABLET (FP) PO SCH (22:22)
[2018-05-14] MEDS: sitaGLIPtin PHOSPHATE 25 MG TABLET (FP) PO SCH (06:36)
[2018-05-14 08:43] LABS: ANION GAP 9 MMOL/L (8-16); BLOOD UREA NITROGEN 44 mg/dL (7-18); CALCIUM 9.9 mg/dL (8.5-10.1); CHLORIDE 99 mmol/L (98-107); CO2 21 mmol/L (21-32); GLUCOSE,RANDOM 112 mg/dL (74-106); POTASSIUM 5.2 mmol/L (3.5-5.1); SODIUM 128 mmol/L (136-145)
--- NOTE | 2018-05-14 08:56 | PN ---
Progress Note, Physician Chief Complaint: Patient recently admitted for right knee effusion in early April. 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 Has been seen by renal. Asked to f/u as repeat echo this admission shows EF of 25% with global HK, which is changed from echo on 04/22 which showed low normal EF. Of note, both studies were technically difficult. She denies chest pain, SOB, palpitations. History of Present Illness: Over weekend, required Lasix for SOB and what was clinically thought to be CHF. BNP is also elevated - Current Medication List Current Medications: Active Medications Clopidogrel Bisulfate (Plavix -) 75 mg PO DAILY [facility] Last Admin: 05/13/18 10:29 Dose: 75 mg Guaifenesin (Diabetic Tussin Dm -) 10 ml PO Q4H PRN PRN Reason: COUGH Last Admin: 05/13/18 18:13 Dose: 10 ml Magnesium Chloride (Slow-Mag -) 64 mg PO DAILY [facility] Last Admin: 05/13/18 10:31 Dose: 64 mg Metoprolol Succinate (Toprol Xl -) 25 mg PO DAILY [facility] Last Admin: 05/13/18 10:29 Dose: 25 mg Nifedipine (Procardia Xl -) 30 mg PO DAILY [facility] Last Admin: 05/13/18 10:28 Dose: 30 mg Pantoprazole Sodium (Protonix -) 40 mg PO DAILY [facility] Last Admin: 05/13/18 10:29 Dose: 40 mg Rosuvastatin Calcium (Crestor -) 10 mg PO HS [facility] Last Admin: 05/13/18 22:22 Dose: 10 mg Sitagliptin Phosphate (Januvia -) 25 mg PO DAILY@0700 [facility] Last Admin: 05/14/18 06:36 Dose: 25 mg - Objective Vital Signs: Vital Signs Temperature 98.1 F 05/14/18 06:53 Pulse Rate 73 05/14/18 06:53 Respiratory Rate 20 05/14/18 06:53 Blood Pressure 126/72 05/14/18 06:53 O2 Sat by Pulse Oximetry (%) 98 05/13/18 21:00 Constitutional: Yes: Calm Cardiovascular: Yes: Regular Rate and Rhythm Respiratory: Yes: CTA Bilaterally Gastrointestinal: Yes: Soft Edema: No Neurological: Yes: Alert Labs: CBC, BMP 05/13/18 06:45 05/14/18 08:05 INR, PTT INR 1.05 (0.83-1.09) 05/03/18 13:38 Laboratory Tests 05/03/18 05/11/18 05/13/18 15:50 06:00 06:45 WBC 8.7 Hgb 12.1 Plt Count 305 Sodium Potassium BUN Creatinine Troponin I 0.04 B-Natriuretic Peptide 6165.3 H 05/14/18 08:05 WBC Hgb Plt Count Sodium 128 L Potassium 5.2 H BUN 44 H Creatinine 2.0 H Troponin I B-Natriuretic Peptide - ....Imaging EKG: Image Reviewed (NSR 92bpm, PVC2 and ICD) Assessment/Plan IMP: ARF Prior CVA Worsened EF- porgressively since 06/2017 REC: Long discussion with family at bedside. Currently, patient is not a candidate for invasive coronary eval (due to ARF). Recommend medical therapy with beta jefferson, lasix with close eye on renal fxn and PRISCILLA/ARB if GFR improves. If BP becomes issue or if develops volume overload again can consider nitrate/ hydral combo. To continue Plavix for prior TIA and presumed underlying CAD. Family to decide re outpt stress test, however unclear that we would plant changer if stress was abnl. Needs close outpt f/u
[2018-05-14] MEDS ORDERED: PT OWN MED DRAWER 7, Y5N ONE (09:03)
[2018-05-14] MEDS: CLOPIDOGREL BISULFATE 75 MG TABLET (FP) PO SCH (09:09)
[2018-05-14] MEDS: NIFEdipine E.R. 30 MG TABLET (FP) PO SCH (09:12)
[2018-05-14] MEDS: PANTOPRAZOLE 40 MG TABLET (FP) PO SCH (09:12)
[2018-05-14] MEDS: MAGNESIUM CL 64 MG TABLET.SA PO SCH (09:12)
[2018-05-14] MEDS: metoPROLOL SUCCINATE 25 MG TAB.SR.24H (FP) PO SCH (09:13)
--- NOTE | 2018-05-14 11:55 | PN ---
Progress Note, Physician History of Present Illness: stable no new issues nephro following - Current Medication List Current Medications: Active Medications Clopidogrel Bisulfate (Plavix -) 75 mg PO DAILY [facility] Last Admin: 05/14/18 09:09 Dose: 75 mg Guaifenesin (Diabetic Tussin Dm -) 10 ml PO Q4H PRN PRN Reason: COUGH Last Admin: 05/13/18 18:13 Dose: 10 ml Magnesium Chloride (Slow-Mag -) 64 mg PO DAILY [facility] Last Admin: 05/14/18 09:12 Dose: 64 mg Metoprolol Succinate (Toprol Xl -) 25 mg PO DAILY [facility] Last Admin: 05/14/18 09:13 Dose: 25 mg Nifedipine (Procardia Xl -) 30 mg PO DAILY [facility] Last Admin: 05/14/18 09:12 Dose: 30 mg Pantoprazole Sodium (Protonix -) 40 mg PO DAILY [facility] Last Admin: 05/14/18 09:12 Dose: 40 mg Rosuvastatin Calcium (Crestor -) 10 mg PO HS [facility] Last Admin: 05/13/18 22:22 Dose: 10 mg Sitagliptin Phosphate (Januvia -) 25 mg PO DAILY@0700 [facility] Last Admin: 05/14/18 06:36 Dose: 25 mg - Objective Vital Signs: Vital Signs Temperature 97.6 F 05/14/18 08:40 Pulse Rate 81 05/14/18 08:40 Respiratory Rate 20 05/14/18 08:40 Blood Pressure 155/76 05/14/18 08:40 O2 Sat by Pulse Oximetry (%) 98 05/13/18 21:00 Constitutional: Yes: No Distress, Calm Cardiovascular: Yes: Regular Rate and Rhythm Respiratory: Yes: Regular, CTA Bilaterally Gastrointestinal: Yes: Normal Bowel Sounds, Soft Musculoskeletal: Yes: WNL Extremities: Yes: Other Neurological: Yes: Alert, Oriented Psychiatric: Yes: Alert, Oriented Labs: CBC, BMP 05/13/18 06:45 05/14/18 08:05 INR, PTT INR 1.05 (0.83-1.09) 05/03/18 13:38 Assessment/Plan Assessment/Plan Problem List - Problems (1) leukocytosis (2) CAD (coronary artery disease) Code(s): I25.10 - ATHSCL HEART DISEASE OF [place] CORONARY ARTERY W/O ANG PCTRS (3) HTN (hypertension) Code(s): I10 - ESSENTIAL (PRIMARY) HYPERTENSION (4) Chronic kidney disease Code(s): N18.9 - CHRONIC KIDNEY DISEASE, UNSPECIFIED Qualifiers: Chronic kidney disease stage: unspecified stage Qualified Code(s): N18.9 - Chronic kidney disease, unspecified (5) Diabetes Code(s): E11.9 - TYPE 2 DIABETES MELLITUS WITHOUT COMPLICATIONS (6) HLD (hyperlipidemia) Code(s): E78.5 - HYPERLIPIDEMIA, UNSPECIFIED (7) Osteoarthritis Code(s): M19.90 - UNSPECIFIED OSTEOARTHRITIS, UNSPECIFIED SITE Qualifiers: Osteoarthritis location: knee Osteoarthritis type: unspecified Laterality : right Qualified Code(s): M17.11 - Unilateral primary osteoarthritis, right knee (8) CHF (congestive heart failure) Code(s): I50.9 - HEART FAILURE, UNSPECIFIED Qualifiers: Heart failure type: unspecified Heart failure chronicity: unspecified Qualified Code(s): I50.9 - Heart failure, unspecified 9 uti plan continue current mgmt rest as per the team stable off of abx as per nephro
[2018-05-14] MEDS ORDERED: FUROSEMIDE 40 MG TABLET (FP) PO SCH (13:45)
--- NOTE | 2018-05-14 15:42 | PN ---
Progress Note (short form) - Note Progress Note: Renal follow up for JACK on CKD No acute complaints. making urine no sob, cp, abd pain Vital Signs Temperature 98.0 F 05/14/18 15:24 Pulse Rate 88 05/14/18 15:24 Respiratory Rate 18 05/14/18 15:24 Blood Pressure 123/80 05/14/18 15:24 O2 Sat by Pulse Oximetry (%) 98 05/13/18 21:00 NAD awake and alert neck supple RRR CTA, no rales or wheeze CBC, BMP 05/13/18 06:45 05/14/18 08:05 Current Medications Clopidogrel Bisulfate (Plavix -) 75 mg PO DAILY [facility] Last Admin: 05/14/18 09:09 Dose: 75 mg Furosemide (Lasix -) 40 mg PO DAILY [facility] Last Admin: 05/14/18 13:48 Dose: 40 mg Guaifenesin (Diabetic Tussin Dm -) 10 ml PO Q4H PRN PRN Reason: COUGH Last Admin: 05/13/18 18:13 Dose: 10 ml Magnesium Chloride (Slow-Mag -) 64 mg PO DAILY [facility] Last Admin: 05/14/18 09:12 Dose: 64 mg Metoprolol Succinate (Toprol Xl -) 25 mg PO DAILY [facility] Last Admin: 05/14/18 09:13 Dose: 25 mg Nifedipine (Procardia Xl -) 30 mg PO DAILY [facility] Last Admin: 05/14/18 09:12 Dose: 30 mg Pantoprazole Sodium (Protonix -) 40 mg PO DAILY [facility] Last Admin: 05/14/18 09:12 Dose: 40 mg Rosuvastatin Calcium (Crestor -) 10 mg PO HS [facility] Last Admin: 05/13/18 22:22 Dose: 10 mg Sitagliptin Phosphate (Januvia -) 25 mg PO DAILY@0700 [facility] Last Admin: 05/14/18 06:36 Dose: 25 mg 88 year old woman with hx of CKD (baseline Cr ~1.6), Hypertension, DM type 2, CAD, CVA who presented from the [place] with fall and found to have JACK with hyperkalemia and hyponatremia. #JACK on CKD likely due to renal hypoprofusion in setting from hypovolemia +/- ARB #Hyperkalemia in setting of JACK now resolved #Chronic Hyponatremia #s/p Fall #Hypertension #DM Type 2 #Cardiomyopathy (eGFR 25%) Renal function stable Cardiology input appreciated, started on Lasix 40mg Daily holding PRISCILLA/ARB for now stable for discharge with outpatient follow up Thank you Javon Cota DO
[2018-05-14 17:13] VITALS: BP 142/74; PULSE 74; TEMP 98.2
== END 2018-05-14 19:46 | disposition home health service (06) | DRG 682 ==
LOC: JER 12:11 → JERBED 20:42 → UNDOADMIN 22:10 → J8W 05-04 11:51
PROVIDERS: ADMIT Internal Medicine; ATTEND Internal Medicine
DX: N17.9 Acute kidney failure, unspecified (principal); I50.21 Acute systolic (congestive) heart failure; I69.351 Hemiplegia and hemiparesis following cerebral infarction affecting right dominant side; N39.0 Urinary tract infection, site not specified; E87.1 Hypo-osmolality and hyponatremia; I13.0 Hypertensive heart and chronic kidney disease with heart failure and stage 1 through stage 4 chronic kidney disease, or unspecified chronic kidney disease; I50.32 Chronic diastolic (congestive) heart failure; I42.9 Cardiomyopathy, unspecified; E87.5 Hyperkalemia; E78.5 Hyperlipidemia, unspecified; E11.22 Type 2 diabetes mellitus with diabetic chronic kidney disease; I12.9 Hypertensive chronic kidney disease with stage 1 through stage 4 chronic kidney disease, or unspecified chronic kidney disease; N18.9 Chronic kidney disease, unspecified; E86.1 Hypovolemia; E87.8 Other disorders of electrolyte and fluid balance, not elsewhere classified; D72.829 Elevated white blood cell count, unspecified; Z79.84 Long term (current) use of oral hypoglycemic drugs
CPT/HCPCS: 36415; 70450-TC; 71046-TC-FY; 71250-TC; 72125-TC; 73523-TC-FY; 74176-TC; 76775-TC; 80048; 80053; 81003; 81015; 82550; 82570; 82962; 83735; 83880; 83930; 83935; 84100; 84156; 84300; 84484; 84540; 85025; 85610; 87086; 87186; 87205; 93005; 93010; 93306-TC; 97116-GP; 97161-GP; 99284-25; J1644; J7030

== ENCOUNTER 2018-10-02 10:56 | Inpatient (IN) | payer OTHER ==
--- NOTE | 2018-10-02 11:59 | PDOC ---
History of Present Illness - General Chief Complaint: Respiratory Stated Complaint: SOB Time Seen by Provider: 10/02/18 11:37 History Source: Patient Exam Limitations: No Limitations - History of Present Illness Initial Comments: 10/02/18 11:53 88 yo female pmh CHF (on O2 3L NC at home, never required bipap or intubation), HTN, HLD, DM and CKD (baseline Cr ~1.6), CAD, CVA presents to the ED from PCP office (Dr. Rayo Alberts) for CHF exacerbation. Pt states over the last 7 days she has had worsening SOB with mild exertion. PCP gave 80 lasix (on 20 po daily ) due to noted SOB with bilateral pitting edema. Daughter at bedside states pt becomes very OB with minimal activity and requires up right position for sleeping. Pt denies recent illness, sick contacts, recent travel, CP, abdominal pain, changes in bowel or bladder habits. Past History - Past Medical History Allergies/Adverse Reactions: Allergies Allergy/AdvReac Type Severity Reaction Status Date / Time No Known Allergies Allergy Verified 05/03/18 13:15 Home Medications: Ambulatory Orders Clopidogrel Bisulfate [Plavix] 75 mg PO DAILY 04/20/18 Linagliptin [Tradjenta] 5 mg PO DAILY 04/20/18 Metoprolol Succinate [Toprol Xl] 25 mg PO DAILY 04/20/18 Nifedipine ER [Procardia XL -] 30 mg PO DAILY 04/20/18 Rosuvastatin [Crestor -] 10 mg PO HS #30 tablet 05/09/18 Olmesartan Medoxomil [Benicar] 20 mg PO DAILY #30 tablet 05/10/18 Escitalopram Oxalate [Lexapro -] 10 mg PO DAILY 10/02/18 Anemia: No Cardiac Disorders: Yes CVA: Yes (right sided weakness) COPD: No Diabetes: Yes Dialysis: No (CKD) GI Disorders: Yes (BLEEDING GASTRIC ULCER) Disorders: Yes (CKD) HTN: Yes Hypercholesterolemia: Yes Liver Disease: No - Surgical History Abdominal Surgery: Yes (FOR ULCER- GASTRIC) Orthopedic Surgery: No - Suicide/Smoking/Psychosocial Hx Smoking Status: No Smoking History: Never smoked Have you smoked in the past 12 months: No Number of Cigarettes Smoked Daily: 0 Hx Alcohol Use: No Drug/Substance Use Hx: No Substance Use Type: None Hx Substance Use Treatment: No *Physical Exam - Vital Signs Last Vital Signs Temp Pulse Resp BP Pulse Ox 97.8 F 109 H 24 H 142/60 99 10/02/18 11:02 10/02/18 11:33 10/02/18 11:02 10/02/18 11:02 10/02/18 11:33 ED Treatment Course - LABORATORY CBC & Chemistry Diagram: 10/02/18 11:45 10/02/18 11:45 - RADIOLOGY Radiology Studies Ordered: Category Date Time Status CHEST X-RAY PORTABLE* [RAD] Stat Radiology 10/02/18 11:43 Ordered Medical Decision Making - Medical Decision Making 10/02/18 13:[address] Whitaker Agrees to have pt admitted for CHF exacerbation tele obs Pt noted to have WBC 16, elevated from baseline of 8. WIll treat as possible CAP at this time with ceftriaxone and azithro *DC/Admit/Observation/Transfer Diagnosis at time of Disposition: CHF exacerbation - Discharge Dispostion Condition at time of disposition: Stable Decision to Admit order: Yes - Referrals - Patient Instructions - Post Discharge Activity
--- NOTE | 2018-10-02 12:00 | PDOC ---
Documentation entered by Radha Caba SCRIBE, acting as scribe for Leighton Linda MD. Leighton Linda MD: This documentation has been prepared by the Gertrudis blanco Daisy, SCRIBE, under my direction and personally reviewed by me in its entirety. I confirm that the documentation accurately reflects all work, treatment, procedures, and medical decision making performed by me. Attending Attestation - Resident Resident Name: Rico Yañez - ED Attending Attestation I have performed the following: I have examined & evaluated the patient, The case was reviewed & discussed with the resident, I agree w/resident's findings & plan - HPI HPI: 10/02/18 12:52 The patient is a 88 YOF with a PMH of CHF (on O2 3L NC at home, never required bipap or intubation), HTN, HLD, DM and CKD (baseline Cr ~1.6), CAD, and CVA who was sent in by Dr. Rayo Alberts for CHF exacerbation. Patient is complaining of worsening shortness of breath and lower extremity edema for the past few days. Dr. Alberts gave the patient 80 of lasix prior to being sent to the ED. Denies any sick contact or recent travel. Denies cp, abd pain, fever, chills, N/V/D/C, or urinary symptoms. Allergies: NKDA Social Hx: Denies toxic habits. PCP: Dr. Alberts - Physicial Exam PE: 10/02/18 12:57 Vitals: Triage vital signs reviewed General Appearance: No acute distress, well nourished, well developed Cardiac: Regular rate and rhythm, no murmurs, no rubs, no gallops Lungs: (+) Crackles bilaterally about two thirds up her lungs. No wheezes or rales. Abdomen: Soft, nondistended, normal bowel sounds, nontender to palpation Extremities: Full range of motion to all extremities. (+) Bilateral 3+ pitting edema. Skin: Warm and dry, no rashes or lesions, no rash, no petechiae Neuro: AOX3; Cranial Nerves 2-12 grossly intact, Strength intact to all extremities, Sensation intact to all extremities, gait normal Psych: Normal mood, normal affect - Medical Decision Making 10/02/18 16:17 Moderate CHF exacerbation elevated white blood cell count chest x-ray request she will infiltrate in addition to admission for CHF exacerbation will treat for community acquired pneumonia with ceftriaxone and azithromycin We'll do to medicine for further management. Heart Score/ECG Review - ECG Impressions Comment:: 10/02/18 16:18 EKG performed at 1054 demonstrates sinus rhythm with occasional PVCs incomplete right bundle-branch block no ST elevations no T-wave inversions. Interpreted by me.
[2018-10-02 12:04] LABS: BASO % 1.3 % (0-2.0); EOS % 0.3 % (0-4.5); HEMATOCRIT 33.1 % (32.4-45.2); HEMOGLOBIN 10.8 GM/dL (10.7-15.3); LYMPH % 5.2 % (8-40); MCH 27.5 pg (25.7-33.7); MCHC 32.8 g/dl (32.0-36.0); MEAN PLT VOLUME 8.1 fl (7.5-11.1); NEUT % 80.2 % (42.8-82.8); PLATELET COUNT 490 K/MM3 (134-434); RBC 3.94 M/mm3 (3.60-5.2); RDW 14.2 % (11.6-15.6); WHITE BLOOD COUNT 16.3 K/mm3 (4.0-10.0)
--- NOTE | 2018-10-02 12:12 | PDOC ---
History of Present Illness - General Chief Complaint: Respiratory Stated Complaint: SOB Time Seen by Provider: 10/02/18 11:37 History Source: Patient Exam Limitations: No Limitations - History of Present Illness Initial Comments: 10/02/18 12:11 88 yo female hx of CKD (baseline Cr ~1.6), Hypertension, DM type 2, CAD, CHF ( last reported EF 46% 2015) CVA prese This is a 88 year old woman with hx of CKD (baseline Cr ~1.6), Hypertension, DM type 2, CAD, CVA who presented from the [place] with fall and found to have JACK with hyperkalemia and hyponatremia. Son was the bedside and provided the history. Pt had a fall from bed in the NH when she was being turned. No acute complaints today. Denies any pain, sob, abd pain, fever, chills. Reports good appetite, denies any N/V/D. Pt was on ARB as an outpatient. No flank pain. No dysuria, hematuria. Denies any NSAID use. Past History - Past Medical History Allergies/Adverse Reactions: Allergies Allergy/AdvReac Type Severity Reaction Status Date / Time No Known Allergies Allergy Verified 05/03/18 13:15 Home Medications: Ambulatory Orders Clopidogrel Bisulfate [Plavix] 75 mg PO DAILY 04/20/18 Linagliptin [Tradjenta] 5 mg PO DAILY 04/20/18 Metoprolol Succinate [Toprol Xl] 25 mg PO DAILY 04/20/18 Nifedipine ER [Procardia XL -] 30 mg PO DAILY 04/20/18 Rosuvastatin [Crestor -] 10 mg PO HS #30 tablet 05/09/18 Olmesartan Medoxomil [Benicar] 20 mg PO DAILY #30 tablet 05/10/18 Escitalopram Oxalate [Lexapro -] 10 mg PO DAILY 10/02/18 Anemia: No Cardiac Disorders: Yes CVA: Yes (right sided weakness) COPD: No Diabetes: Yes Dialysis: No (CKD) GI Disorders: Yes (BLEEDING GASTRIC ULCER) Disorders: Yes (CKD) HTN: Yes Hypercholesterolemia: Yes Liver Disease: No - Surgical History Abdominal Surgery: Yes (FOR ULCER- GASTRIC) Orthopedic Surgery: No - Suicide/Smoking/Psychosocial Hx Smoking Status: No Smoking History: Never smoked Have you smoked in the past 12 months: No Number of Cigarettes Smoked Daily: 0 Hx Alcohol Use: No Drug/Substance Use Hx: No Substance Use Type: None Hx Substance Use Treatment: No *Physical Exam - Vital Signs Last Vital Signs Temp Pulse Resp BP Pulse Ox 97.8 F 109 H 22 H 142/60 99 10/02/18 11:02 10/02/18 11:33 10/02/18 12:01 10/02/18 11:02 10/02/18 11:33 ED Treatment Course - LABORATORY CBC & Chemistry Diagram: 10/02/18 11:45 10/02/18 11:45 - ADDITIONAL ORDERS Additional order review: 10/02/18 11:45 RBC 3.94 MCV 84.0 MCHC 32.8 RDW 14.2 MPV 8.1 Neutrophils % 80.2 D Lymphocytes % 5.2 L D Monocytes % 13.0 H Eosinophils % 0.3 D Basophils % 1.3 - RADIOLOGY Radiology Studies Ordered: Category Date Time Status CHEST X-RAY PORTABLE* [RAD] Stat Radiology 10/02/18 11:43 Ordered
[2018-10-02 12:39] LABS: ALBUMIN 2.6 g/dl (3.4-5.0); BILIRUBIN,TOTAL 0.4 mg/dL (0.2-1); CALCIUM 10.2 mg/dL (8.5-10.1); CREATININE 1.8 mg/dL (0.55-1.3); MAGNESIUM 2.1 mg/dL (1.8-2.4); PHOSPHOROUS 2.9 mg/dL (2.5-4.9); POTASSIUM 4.8 mmol/L (3.5-5.1); TOT PROT 7.9 g/dl (6.4-8.2)
--- NOTE | 2018-10-02 12:50 | EKG ---
Test Reason : Blood Pressure : / mmHG Vent. Rate : 108 BPM Atrial Rate : 107 BPM P-R Int : 156 ms QRS Dur : 098 ms QT Int : 364 ms P-R-T Axes : 058 -02 074 degrees QTc Int : 487 ms SINUS TACHYCARDIA PREMATURE VENTRICULAR COMPLEXES OTHERWISE NORMAL ECG Confirmed by REBECA PAULA MD ([id number]) on 10/02/2018 12:49:47 PM Referred By: Confirmed By:REBECA PAULA MD
[2018-10-02] MEDS ORDERED: AZITHROMYCIN IVPB 500 MG in DEXTROSE 5%-WATER - 250 ML IVPB ONE (13:35)
[2018-10-02] MEDS ORDERED: CEFTRIAXONE 1,000 MG in DEXTROSE 5%-WATER - 50 ML IVPB ONE (13:35)
[2018-10-02] MEDS ORDERED: AZITHROMYCIN IVPB 500 MG/250 ML BAG IVPB ONE (13:36)
[2018-10-02] MEDS ORDERED: CEFTRIAXONE 1 GM/50 ML BAG ONE (13:36)
[2018-10-02] MEDS ORDERED: NIFEdipine E.R. 30 MG TABLET (FP) PO SCH (17:00)
--- NOTE | 2018-10-02 17:31 | CON.CARD ---
Consult Consult Specialty:: cardiology Reason for Consultation:: shortness of breath; hx systolic CHF - History of Present Illness Chief Complaint: Pt A&Ox3; mildly SOB (head of bed angled at 60 degrees), but feels much better than when first entering the ER. Legs mildly swollen, but much improved, per pt's daughter and son, who are at the bedside. History of Present Illness: Ms. Colby is an 88 yr old woman with a PMH of severe systolic CHF (on O2 3L NC at home, never required bipap or intubation), HTN, HLD, DM and CKD (baseline Cr ~1.6), CAD, and CVA who was sent in by Dr. Rayo Alberts for CHF exacerbation. Patient is complaining of worsening shortness of breath and lower extremity edema for the past few days. Dr. Alberts gave the patient 80 of lasix prior to being sent to the ED. Denies any sick contact or recent travel. Denies cp, abd pain, fever, chills, N/V/D/C, or urinary symptoms. Allergies: NKDA Social Hx: Denies toxic habits. PCP: Dr. 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 (Residual rt sided weakness) Cardio/Vascular: Yes: CAD, CHF, HTN, Hyperlipdemia, Other Gastrointestinal: Yes: Peptic Ulcer Disease Renal/: Yes: Renal Inusuff Reproductive: Yes: Postmenopausal ...: No Musculoskeletal: Yes: Osteoarthritis Rheumatology: Yes: Other (OA) Endocrine: Yes: Diabetes Mellitus - Alcohol/Substance Use Hx Alcohol Use: No - Smoking History Smoking history: Never smoked Have you smoked in the past 12 months: No Aproximately how many cigarettes per day: 0 - Social History Usual Living Arrangement: With Child ADL: Independent History of Recent Travel: No Home Medications - Allergies Allergies/Adverse Reactions: Allergies Allergy/AdvReac Type Severity Reaction Status Date / Time No Known Allergies Allergy Verified 05/03/18 13:15 - Home Medications Home Medications: Ambulatory Orders Clopidogrel Bisulfate [Plavix] 75 mg PO DAILY 04/20/18 Linagliptin [Tradjenta] 5 mg PO DAILY 04/20/18 Metoprolol Succinate [Toprol Xl] 25 mg PO DAILY 04/20/18 Nifedipine ER [Procardia XL -] 30 mg PO DAILY 04/20/18 Rosuvastatin [Crestor -] 10 mg PO HS #30 tablet 05/09/18 Olmesartan Medoxomil [Benicar] 20 mg PO DAILY #30 tablet 05/10/18 Escitalopram Oxalate [Lexapro -] 10 mg PO DAILY 10/02/18 Family Disease History - Family Disease History Family History: Denies Review of Systems - Review of Systems Constitutional: reports: Weakness Eyes: reports: No Symptoms HENT: reports: No Symptoms Neck: reports: No Symptoms Cardiovascular: reports: Shortness of Breath Respiratory: reports: SOB. denies: Exercise Intolerance Gastrointestinal: reports: Nausea Genitourinary: reports: No Symptoms Breasts: reports: No Symptoms Reported Musculoskeletal: reports: Muscle Weakness Integumentary: reports: No Symptoms Neurological: reports: Unsteady Gait (hx residual right-sided weakness after CVA ; able to get to the bathroom with walker and assistance), Weakness Endocrine: reports: No Symptoms Hematology/Lymphatic: reports: No Symptoms Psychiatric: reports: No Symptoms - Risk Factors Known Risk Factors: Yes: Age, Hypercholesterolemia, Hypertension, Physical Inactivity, Prior MA /Emb Stroke Vital Signs: Vital Signs Temperature 97.8 F 10/02/18 13:57 Pulse Rate 90 10/02/18 13:57 Respiratory Rate 24 H 10/02/18 13:57 Blood Pressure 119/98 10/02/18 13:57 O2 Sat by Pulse Oximetry (%) 97 10/02/18 13:57 Constitutional: Yes: Calm Eyes: Yes: WNL HENT: Yes: WNL Neck: Yes: WNL Respiratory: Yes: Orthopnea, Rales, SOB Gastrointestinal: Yes: Soft Renal/: No: Anuria Cardiovascular: Yes: Tachycardia JVD: Yes Carotid Bruit: No PMI: Displaced Heart Sounds: Yes: S1 Murmur: Yes: Systolic Murmur, Grade 2 Musculoskeletal: Yes: Joint Stiffness, Muscle Weakness (right-sided weakness ( chronic; since CVA)) Extremities: Yes: Cool Edema: Yes Edema: LLE: 1+, RLE: 1+ Peripheral Pulses WNL: Yes Integumentary: Yes: Venous Stasis Changes Neurological: Yes: Alert, Oriented, Paresthesia Psychiatric: Yes: WNL - Other Data Labs, Other Data: CBC, BMP 05/30/19 11:45 10/02/18 11:45 Troponin, BNP 10/02/18 11:45 Troponin I 0.02 B-Natriuretic Peptide 77194.0 H Troponin, BNP 10/02/18 11:45 Troponin I 0.02 B-Natriuretic Peptide 69813.0 H Abnormal Lab Results 10/02/18 10/02/18 10/03/18 11:45 11:45 06:00 WBC 16.3 H 12.8 H Hgb 10.2 L Hct 30.6 L Plt Count 490 H D 465 H Absolute Neuts (auto) 13.1 H 9.6 H Lymphocytes % 5.2 L D 7.2 L D Monocytes % 13.0 H 15.0 H Sodium 127 L Chloride 92 L BUN 46 H Creatinine 1.8 H Random Glucose 144 H Calcium 10.2 H AST B-Natriuretic Peptide 13394.0 H Albumin 2.6 L 10/03/18 06:00 WBC Hgb Hct Plt Count Absolute Neuts (auto) Lymphocytes % Monocytes % Sodium 128 L Chloride 95 L BUN 43 H Creatinine 1.7 H Random Glucose 134 H Calcium AST 12 L B-Natriuretic Peptide Albumin 2.3 L Echo: Report Reviewed Ejection Fraction %: LVEF < 40 % Imaging - Results Chest X-ray: Image Reviewed (CHF; ? PNA) EKG: Image Reviewed (sinus tachycardia) Problem List - Problems (1) Acute on chronic systolic (congestive) heart failure Assessment/Plan: Severe systolic LV dysfunction. +JVP; extensive vasular changes, ?;pleural effusions on CXR. TNI < 0.02; f/u serially. Continue carvedilol. Discontinue nifedipine. Start lisinopril 2.5 mg daily; follow BUN/cr and electrolytes carefully, and increase dose as tolerated. Once lisinopril is optimized, consider spironolactone in the future, if BUN/Cr and K+ allow.. On IV furosemide; follow electrolytes carefully (hyponatremic). BUN/Cr, electrolytes, daily weight, Is and Os. Code(s): I50.23 - ACUTE ON CHRONIC SYSTOLIC (CONGESTIVE) HEART FAILURE (2) HTN (hypertension) Assessment/Plan: see "CHF" Code(s): I10 - ESSENTIAL (PRIMARY) HYPERTENSION (3) Pneumonia Assessment/Plan: on Rocephin. F/u c/s. Code(s): J18.9 - PNEUMONIA, UNSPECIFIED ORGANISM (4) Weakness Code(s): R53.1 - WEAKNESS (5) Leukocytosis Code(s): D72.829 - ELEVATED WHITE BLOOD CELL COUNT, UNSPECIFIED (6) Hyponatremia Code(s): E87.1 - HYPO-OSMOLALITY AND HYPONATREMIA (7) CVA (cerebral vascular accident) Assessment/Plan: old CVA; residual right-sided weakness Code(s): I63.9 - CEREBRAL INFARCTION, UNSPECIFIED
[2018-10-02] MEDS ORDERED: LISINOPRIL 5 MG TABLET (FP) PO ONE (17:44)
--- NOTE | 2018-10-02 20:30 | HP ---
Admitting History and Physical - Admission History of Present Illness: Pt is a 88 y/o female w/ PMH significant for CHF (on O2 3L NC at home, never required bipap or intubation), HTN, HLD, DM and CKD, CAD and CVA . Pt presented to the ER from PCP office (Dr. Rayo Alberts) for CHF exacerbation. Pt's family states that over the last 7 days she has had worsening SOB with mild exertion. PCP gave 80mg lasix (on 20 po daily) due to noted SOB with bilateral pitting edema. Daughter at bedside states pt becomes very SOB with minimal activity and requires up right position for sleeping. In the ER pt found to have vascular congestion on CXR and elevated BNP to >11,000. 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 (Residual rt sided weakness) Cardiovascular: Yes: CAD, CHF, HTN, Hyperlipdemia, Other Gastrointestinal: Yes: Peptic Ulcer Disease Renal/: Yes: Renal Inusuff Musculoskeletal: Yes: Osteoarthritis Rheumatology: Yes: Other (OA) Endocrine: Yes: Diabetes Mellitus - Past Surgical History Past Surgical History: Yes: None - Smoking History Smoking history: Never smoked Have you smoked in the past 12 months: No Aproximately how many cigarettes per day: 0 - Alcohol/Substance Use Hx Alcohol Use: No - Social History ADL: Independent History of Recent Travel: No Home Medications - Allergies Allergies/Adverse Reactions: Allergies Allergy/AdvReac Type Severity Reaction Status Date / Time No Known Allergies Allergy Verified 05/03/18 13:15 - Home Medications Home Medications: Ambulatory Orders Clopidogrel Bisulfate [Plavix] 75 mg PO DAILY 04/20/18 Linagliptin [Tradjenta] 5 mg PO DAILY 04/20/18 Metoprolol Succinate [Toprol Xl] 25 mg PO DAILY 04/20/18 Nifedipine ER [Procardia XL -] 30 mg PO DAILY 04/20/18 Rosuvastatin [Crestor -] 10 mg PO HS #30 tablet 05/09/18 Olmesartan Medoxomil [Benicar] 20 mg PO DAILY #30 tablet 05/10/18 Escitalopram Oxalate [Lexapro -] 10 mg PO DAILY 10/02/18 Family Disease History - Family Disease History Family History: Unable to Obtain Review of Systems Unable to obtain ROS, reason: Pt w/ dementia Physical Examination Vital Signs: Vital Signs Temperature 98.3 F 10/02/18 18:03 Pulse Rate 99 H 10/02/18 18:03 Respiratory Rate 20 10/02/18 18:03 Blood Pressure 126/75 10/02/18 18:03 O2 Sat by Pulse Oximetry (%) 94 L 10/02/18 18:03 HENT: Yes: WNL Neck: Yes: WNL, Supple Cardiovascular: Yes: WNL, Regular Rate and Rhythm Respiratory: Yes: Rales, Rhonchi Gastrointestinal: Yes: WNL, Normal Bowel Sounds, Soft Edema: LLE: 1+, RLE: 1+ Neurological: Yes: WNL, Alert, Oriented ...Motor Strength: WNL Labs: CBC, BMP 10/02/18 11:45 10/02/18 11:45 Problem List - Problems (1) Acute on chronic systolic (congestive) heart failure Assessment/Plan: Cont IV lasix Check echo Check serial cpk/troponin Cardio consult Monitor electrolytes Code(s): I50.23 - ACUTE ON CHRONIC SYSTOLIC (CONGESTIVE) HEART FAILURE (2) Leukocytosis Assessment/Plan: ?Underlying pneumonia Cont IV ceftriaxone/zithro Cont nebulizers May need repeat CXR Follow WBC Code(s): D72.829 - ELEVATED WHITE BLOOD CELL COUNT, UNSPECIFIED (3) CKD (chronic kidney disease) Assessment/Plan: Renal consult Code(s): N18.9 - CHRONIC KIDNEY DISEASE, UNSPECIFIED Qualifiers: (4) HTN (hypertension) Assessment/Plan: BP stable Cont metoprolol/lisinopril Code(s): I10 - ESSENTIAL (PRIMARY) HYPERTENSION (5) HLD (hyperlipidemia) Assessment/Plan: Cont crestor Code(s): E78.5 - HYPERLIPIDEMIA, UNSPECIFIED (6) Osteoarthritis Code(s): M19.90 - UNSPECIFIED OSTEOARTHRITIS, UNSPECIFIED SITE Qualifiers: Osteoarthritis location: knee Osteoarthritis type: unspecified Laterality : right Qualified Code(s): M17.11 - Unilateral primary osteoarthritis, right knee (7) CAD (coronary artery disease) Assessment/Plan: Cont plavix Code(s): I25.10 - ATHSCL HEART DISEASE OF [place] CORONARY ARTERY W/O ANG PCTRS
[2018-10-02] MEDS: ROSUVASTATIN CA 10 MG TABLET (FP) PO SCH (22:27)
[2018-10-02] MEDS: HEPARIN NA (PORCINE) 5,000 UNITS/ML 1ML VIAL SQ SCH (22:28)
[2018-10-03 06:34] LABS: BASO % 0.7 % (0-2.0); HEMATOCRIT 30.6 % (32.4-45.2); HEMOGLOBIN 10.2 GM/dL (10.7-15.3); LYMPH % 7.2 % (8-40); MCH 27.7 pg (25.7-33.7); MCHC 33.2 g/dl (32.0-36.0); MEAN CELL VOLUME 83.4 fl (80-96); MEAN PLT VOLUME 7.6 fl (7.5-11.1); NEUT % 75.1 % (42.8-82.8); PLATELET COUNT 465 K/MM3 (134-434); RBC 3.67 M/mm3 (3.60-5.2); WHITE BLOOD COUNT 12.8 K/mm3 (4.0-10.0)
[2018-10-03 07:05] LABS: ALBUMIN 2.3 g/dl (3.4-5.0); BILIRUBIN,TOTAL 0.3 mg/dL (0.2-1); CALCIUM 9.5 mg/dL (8.5-10.1); CREATININE 1.7 mg/dL (0.55-1.3); POTASSIUM 4.4 mmol/L (3.5-5.1); TOT PROT 6.8 g/dl (6.4-8.2)
--- NOTE | 2018-10-03 09:19 | CON.CARD ---
Consult Consult Specialty:: Cardiology Referred by:: Dr. 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 Ischemic eval deferred by family due to concerns over renal fxn and the possibility of worsening renal fx with cath. Has been very stable over last 3 months on med Rx now returns with SOB, visibly labored breathing as per family. BNP markedly elevated. No CP, palps, edema. No fevers. 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) Cardio/Vascular: Yes: CAD, CHF, HTN, Hyperlipdemia, Other Gastrointestinal: Yes: Peptic Ulcer Disease Renal/: Yes: Renal Inusuff ...: No Musculoskeletal: Yes: Osteoarthritis Rheumatology: Yes: Other (OA) Endocrine: Yes: Diabetes Mellitus - Past Surgical History Past Surgical History: Yes: None - Alcohol/Substance Use Hx Alcohol Use: No - Smoking History Smoking history: Never smoked Have you smoked in the past 12 months: No Aproximately how many cigarettes per day: 0 - Social History Usual Living Arrangement: With Child ADL: Independent History of Recent Travel: No Home Medications - Allergies Allergies/Adverse Reactions: Allergies Allergy/AdvReac Type Severity Reaction Status Date / Time No Known Allergies Allergy Verified 05/03/18 13:15 - Home Medications Home Medications: Ambulatory Orders Clopidogrel Bisulfate [Plavix] 75 mg PO DAILY 04/20/18 Linagliptin [Tradjenta] 5 mg PO DAILY 04/20/18 Metoprolol Succinate [Toprol Xl] 25 mg PO DAILY 04/20/18 Nifedipine ER [Procardia XL -] 30 mg PO DAILY 04/20/18 Rosuvastatin [Crestor -] 10 mg PO HS #30 tablet 05/09/18 Olmesartan Medoxomil [Benicar] 20 mg PO DAILY #30 tablet 05/10/18 Escitalopram Oxalate [Lexapro -] 10 mg PO DAILY 10/02/18 Family Disease History - Family Disease History Family History: Unremarkable (not pertinent to this presentation) Review of Systems - Review of Systems Constitutional: reports: No Symptoms Eyes: reports: No Symptoms HENT: reports: No Symptoms Cardiovascular: reports: Shortness of Breath Respiratory: reports: Exercise Intolerance, SOB on Exertion Gastrointestinal: reports: No Symptoms Genitourinary: reports: No Symptoms - Risk Factors Known Risk Factors: Yes: Hypertension Vital Signs: Vital Signs Temperature 98.6 F 10/03/18 06:00 Pulse Rate 105 H 10/03/18 06:00 Respiratory Rate 10/03/18 06:00 Blood Pressure 119/61 10/03/18 06:00 O2 Sat by Pulse Oximetry (%) 99 10/02/18 21:00 Constitutional: Yes: Calm Eyes: Yes: Conjunctiva Clear Respiratory: Yes: Other (bilateral rales) Gastrointestinal: Yes: Soft Cardiovascular: Yes: Regular Rate and Rhythm JVD: Yes Heart Sounds: Yes: S1, S2 Edema: No Neurological: Yes: Alert - Other Data Labs, Other Data: CBC, BMP 10/03/18 06:00 10/03/18 06:00 Troponin, BNP 10/02/18 10/02/18 11:45 20:30 Troponin I 0.02 0.02 B-Natriuretic Peptide 82159.0 H Troponin, BNP 10/02/18 10/02/18 11:45 20:30 Troponin I 0.02 0.02 B-Natriuretic Peptide 72338.0 H Laboratory Tests 10/02/18 10/02/18 10/03/18 11:45 20:30 06:00 WBC 12.8 H Hgb 10.2 L Plt Count 465 H Sodium Potassium BUN Creatinine Troponin I 0.02 0.02 B-Natriuretic Peptide 14629.0 H 10/03/18 06:00 WBC Hgb Plt Count Sodium 128 L Potassium 4.4 BUN 43 H Creatinine 1.7 H Troponin I B-Natriuretic Peptide ST 108, PVCs Imaging - Results Chest X-ray: Image Reviewed EKG: Image Reviewed Assessment/Plan IMP: 1. Acute on chronic systolic CHF 2. Suspected underlying CAD 3. CKD REC: 1. Tele 2. IV Lasix, daily weights and daily BMP to monitor renal fx 3. Cont home dose Lisinopril, Toprol 4. For repeat echo.
[2018-10-03] MEDS ORDERED: DEXTROSE 5%-WATER - 50 ML IVPB ONE (09:46)
[2018-10-03] MEDS ORDERED: cefTRIAXone SODIUM 1 GM VIAL ONE (09:46)
[2018-10-03] MEDS: LISINOPRIL 5 MG TABLET (FP) PO SCH (10:00)
[2018-10-03] MEDS: FUROSEMIDE 40 MG/4 ML INJECTABLE VIAL IVPUSH SCH (10:00)
[2018-10-03] MEDS: HEPARIN NA (PORCINE) 5,000 UNITS/ML 1ML VIAL SQ SCH ×2 (10:00→21:31)
[2018-10-03] MEDS: metoPROLOL SUCCINATE 25 MG TAB.SR.24H (FP) PO SCH (10:01)
[2018-10-03] MEDS: ESCITALOPRAM OXALATE 10 MG TABLET (FP) PO SCH (10:02)
[2018-10-03] MEDS: CEFTRIAXONE 1 GM in DEXTROSE 5%-WATER - 50 ML IVPB SCH (10:02)
[2018-10-03] MEDS: CLOPIDOGREL BISULFATE 75 MG TABLET (FP) PO SCH (10:02)
[2018-10-03] MEDS: AZITHROMYCIN IVPB 250 MG in DEXTROSE 5%-WATER - 250 ML IVPB SCH (10:03)
--- NOTE | 2018-10-03 11:09 | ECHO ---
Name: CIELO BENITEZ Exam:Adult Echocardiogram Study Date: 10/03/2018 10:11 AM Age: 88 yrs Reason For Study: CHF Height: 62 in Weight: 146 lb BSA: 1.7 m2 MMode/2D Measurements & Calculations Ao root diam: 2.8 cm LVOT diam: 1.8 cm LA dimension: 2.6 cm Doppler Measurements & Calculations Ao V2 max: 147.2 cm/sec LV V1 max P.9 mmHg Ao max P.7 mmHg LV V1 max: 69.6 cm/sec ALICIA(V,D): 1.2 cm2 Med Peak E' Ra: 3.4 cm/sec Procedure The study was technically difficult with many images being suboptimal in quality. Left Ventricle Ejection Fraction = 40-45%. Although wall motion is not well seen, overall left ventricular systolic function appears mildly reduced. The transmitral spectral Doppler flow pattern is suggestive of impaired LV re laxation. Right Ventricle The right ventricle is normal in size and function. Atria Normal left and right atrial size and function. Mitral Valve The mitral valve is normal in structure and function. There is no mitral valve stenosis. There is mil d mitral regurgitation. Tricuspid Valve The tricuspid valve is normal in structure and function. Aortic Valve There is moderate aortic sclerosis.;. No hemodynamically significant valvular aortic stenosis. Pulmonic Valve The pulmonic valve is not well seen, but is grossly normal. There is no pulmonic valvular stenosis. Great Vessels The aortic root is normal size. Pericardium/Pleura Prominent epicardial fat pad. Interpretation Summary The study was technically difficult with many images being suboptimal in quality. Ejection Fraction = 40-45%. Although wall motion is not well seen, overall left ventricular systolic function appears mildly redu katarina. The right ventricle is normal in size and function. There is mild mitral regurgitation. There is moderate aortic sclerosis.; MD Meyers *Cody 10/03/2018 11:09 AM
--- NOTE | 2018-10-03 20:35 | PN ---
Progress Note, Physician History of Present Illness: Pt still w/ SOB - Current Medication List Current Medications: Active Medications Albuterol/Ipratropium (Duoneb -) 1 amp NEB Q6H PRN PRN Reason: SHORTNESS OF BREATH Clopidogrel Bisulfate (Plavix -) 75 mg PO DAILY [facility] Last Admin: 10/03/18 10:02 Dose: 75 mg Escitalopram Oxalate (Lexapro -) 10 mg PO DAILY [facility] Last Admin: 10/03/18 10:02 Dose: 10 mg Furosemide (Lasix Injection -) 40 mg IVPUSH DAILY [facility] Last Admin: 10/03/18 10:00 Dose: 40 mg Heparin Sodium (Porcine) (Heparin -) 5,000 unit SQ BID [facility] Last Admin: 10/03/18 10:00 Dose: 5,000 unit Azithromycin 250 mg/ Dextrose 250 mls @ 250 mls/hr IVPB DAILY [facility] Last Admin: 10/03/18 10:03 Dose: 250 mls/hr Ceftriaxone Sodium 1 gm/ (Dextrose) 50 mls @ 100 mls/hr IVPB DAILY [facility]; Protocol Last Admin: 10/03/18 10:02 Dose: 100 mls/hr Lisinopril (Prinivil) 2.5 mg PO DAILY [facility] Last Admin: 10/03/18 10:00 Dose: 2.5 mg Metoprolol Succinate (Toprol Xl -) 25 mg PO DAILY [facility] Last Admin: 10/03/18 10:01 Dose: 25 mg Rosuvastatin Calcium (Crestor -) 10 mg PO HS [facility] Last Admin: 10/02/18 22:27 Dose: 10 mg - Objective Vital Signs: Vital Signs Temperature 97.7 F 10/03/18 17:39 Pulse Rate 99 H 10/03/18 17:39 Respiratory Rate 18 10/03/18 17:39 Blood Pressure 132/61 10/03/18 17:39 O2 Sat by Pulse Oximetry (%) 99 10/03/18 10:00 Neck: Yes: WNL, Supple Cardiovascular: Yes: WNL, Regular Rate and Rhythm Respiratory: Yes: Rhonchi, Wheezes Gastrointestinal: Yes: WNL, Normal Bowel Sounds, Soft Edema: LLE: Trace, RLE: Trace Labs: CBC, BMP 10/03/18 06:00 10/03/18 06:00 Problem List - Problems (1) Acute on chronic systolic (congestive) heart failure Assessment/Plan: Cont IV lasix Check echo Monitor electrolytes Code(s): I50.23 - ACUTE ON CHRONIC SYSTOLIC (CONGESTIVE) HEART FAILURE (2) Leukocytosis Assessment/Plan: ?Underlying pneumonia Pulmonary consult Cont IV ceftriaxone/zithro Cont nebulizers May need repeat CXR Follow WBC Code(s): D72.829 - ELEVATED WHITE BLOOD CELL COUNT, UNSPECIFIED (3) CKD (chronic kidney disease) Assessment/Plan: Renal consult Code(s): N18.9 - CHRONIC KIDNEY DISEASE, UNSPECIFIED Qualifiers: (4) HTN (hypertension) Assessment/Plan: BP stable Cont metoprolol/lisinopril Code(s): I10 - ESSENTIAL (PRIMARY) HYPERTENSION (5) HLD (hyperlipidemia) Assessment/Plan: Cont crestor Code(s): E78.5 - HYPERLIPIDEMIA, UNSPECIFIED (6) Osteoarthritis Code(s): M19.90 - UNSPECIFIED OSTEOARTHRITIS, UNSPECIFIED SITE Qualifiers: Osteoarthritis location: knee Osteoarthritis type: unspecified Laterality : right Qualified Code(s): M17.11 - Unilateral primary osteoarthritis, right knee (7) CAD (coronary artery disease) Assessment/Plan: Cont plavix Code(s): I25.10 - ATHSCL HEART DISEASE OF [place] CORONARY ARTERY W/O ANG PCTRS
[2018-10-03] MEDS: ROSUVASTATIN CA 10 MG TABLET (FP) PO SCH (21:32)
[2018-10-04 08:13] LABS: BASO % 0.8 % (0-2.0); EOS % 0.9 % (0-4.5); HEMATOCRIT 31.2 % (32.4-45.2); HEMOGLOBIN 10.4 GM/dL (10.7-15.3); LYMPH % 7.6 % (8-40); MCH 27.7 pg (25.7-33.7); MCHC 33.3 g/dl (32.0-36.0); MEAN CELL VOLUME 83.4 fl (80-96); MEAN PLT VOLUME 8.1 fl (7.5-11.1); MONO % 12.9 % (3.8-10.2); NEUT % 77.8 % (42.8-82.8); PLATELET COUNT 468 K/MM3 (134-434); RBC 3.74 M/mm3 (3.60-5.2); RDW 13.7 % (11.6-15.6); WHITE BLOOD COUNT 12.9 K/mm3 (4.0-10.0)
[2018-10-04 08:54] LABS: ALBUMIN 2.2 g/dl (3.4-5.0); BILIRUBIN,TOTAL 0.4 mg/dL (0.2-1); CALCIUM 9.7 mg/dL (8.5-10.1); CREATININE 1.8 mg/dL (0.55-1.3); POTASSIUM 4.7 mmol/L (3.5-5.1); TOT PROT 7.1 g/dl (6.4-8.2)
[2018-10-04] MEDS ORDERED: cefTRIAXone SODIUM 1 GM VIAL ONE (09:16)
[2018-10-04] MEDS ORDERED: DEXTROSE 5%-WATER - 50 ML IVPB ONE (09:16)
[2018-10-04] MEDS: ESCITALOPRAM OXALATE 10 MG TABLET (FP) PO SCH ×2 (09:36→09:38)
[2018-10-04] MEDS: metoPROLOL SUCCINATE 25 MG TAB.SR.24H (FP) PO SCH ×2 (09:37→09:38)
[2018-10-04] MEDS: CLOPIDOGREL BISULFATE 75 MG TABLET (FP) PO SCH ×2 (09:37→09:38)
[2018-10-04] MEDS: HEPARIN NA (PORCINE) 5,000 UNITS/ML 1ML VIAL SQ SCH ×2 (09:38→21:53)
[2018-10-04] MEDS: FUROSEMIDE 40 MG/4 ML INJECTABLE VIAL IVPUSH SCH (09:38)
[2018-10-04] MEDS: CEFTRIAXONE 1 GM in DEXTROSE 5%-WATER - 50 ML IVPB SCH (09:39)
[2018-10-04] MEDS: LISINOPRIL 5 MG TABLET (FP) PO SCH (09:39)
--- NOTE | 2018-10-04 10:24 | PN ---
Progress Note, Physician History of Present Illness: Breathing better No events overnight Tele: NSR with PVC and triplets - Current Medication List Current Medications: Active Medications Albuterol/Ipratropium (Duoneb -) 1 amp NEB Q6H PRN PRN Reason: SHORTNESS OF BREATH Clopidogrel Bisulfate (Plavix -) 75 mg PO DAILY [facility] Last Admin: 10/04/18 09:38 Dose: 75 mg Escitalopram Oxalate (Lexapro -) 10 mg PO DAILY [facility] Last Admin: 10/04/18 09:38 Dose: 10 mg Furosemide (Lasix Injection -) 40 mg IVPUSH DAILY [facility] Last Admin: 10/04/18 09:38 Dose: 40 mg Heparin Sodium (Porcine) (Heparin -) 5,000 unit SQ BID [facility] Last Admin: 10/04/18 09:38 Dose: 5,000 unit Azithromycin 250 mg/ Dextrose 250 mls @ 250 mls/hr IVPB DAILY [facility] Last Admin: 10/03/18 10:03 Dose: 250 mls/hr Ceftriaxone Sodium 1 gm/ (Dextrose) 50 mls @ 100 mls/hr IVPB DAILY [facility]; Protocol Last Admin: 10/04/18 09:39 Dose: 100 mls/hr Lisinopril (Prinivil) 2.5 mg PO DAILY [facility] Last Admin: 10/04/18 09:39 Dose: 2.5 mg Metoprolol Succinate (Toprol Xl -) 25 mg PO DAILY [facility] Last Admin: 10/04/18 09:38 Dose: 25 mg Rosuvastatin Calcium (Crestor -) 10 mg PO HS [facility] Last Admin: 10/03/18 21:32 Dose: 10 mg - Objective Vital Signs: Vital Signs Temperature 98.1 F 10/04/18 06:52 Pulse Rate 104 H 10/04/18 06:52 Respiratory Rate 18 10/04/18 06:52 Blood Pressure 148/78 10/04/18 06:52 O2 Sat by Pulse Oximetry (%) 96 10/03/18 21:00 Constitutional: Yes: No Distress Neck: Yes: WNL Cardiovascular: Yes: Regular Rate and Rhythm Respiratory: Yes: Rales Edema: Yes Labs: CBC, BMP 10/04/18 06:00 10/04/18 06:00 Assessment/Plan IMP: 1. Acute on chronic systolic CHF 2. Suspected underlying CAD 3. CKD REC: 1. Tele 2. Continue IV Lasix 40mg daily, Creat stable at 1.8, weight 150. 3. Cont home dose Lisinopril, Toprol .
--- NOTE | 2018-10-04 10:29 | PN ---
Progress Note, Physician Chief Complaint: shortness of breath with minimal exertion. ventolin at home, but does not have home oxygen History of Present Illness: patient is an 88 year old female with a significant past medical history of congestive heart failure (not on any home oxygen per her daughter), HTN, HLD, DM and CKD, CAD and CVA . Pt presented to the ER from PCP office (Dr. Rayo Alberts) for CHF exacerbation. Daughter at bedside states pt becomes very SOB with minimal activity and requires up right position for sleeping. In the ER pt found to have vascular congestion on CXR and elevated BNP to >11,000. Her WBC was also elevated on admission, now trending down. On exam, she was noted to have shortness of breath at rest with conversational dyspnea. will put her on solumderol and consult pulmonary as there may be a concern over a possible superimposed pneumonia. She also had wheezing on exam with course lulng sounds. - Current Medication List Current Medications: Active Medications Albuterol/Ipratropium (Duoneb -) 1 amp NEB Q6H PRN PRN Reason: SHORTNESS OF BREATH Clopidogrel Bisulfate (Plavix -) 75 mg PO DAILY [facility] Last Admin: 10/04/18 09:38 Dose: 75 mg Escitalopram Oxalate (Lexapro -) 10 mg PO DAILY [facility] Last Admin: 10/04/18 09:38 Dose: 10 mg Furosemide (Lasix Injection -) 40 mg IVPUSH DAILY [facility] Last Admin: 10/04/18 09:38 Dose: 40 mg Heparin Sodium (Porcine) (Heparin -) 5,000 unit SQ BID [facility] Last Admin: 10/04/18 09:38 Dose: 5,000 unit Azithromycin 250 mg/ Dextrose 250 mls @ 250 mls/hr IVPB DAILY [facility] Last Admin: 10/03/18 10:03 Dose: 250 mls/hr Ceftriaxone Sodium 1 gm/ (Dextrose) 50 mls @ 100 mls/hr IVPB DAILY [facility]; Protocol Last Admin: 10/04/18 09:39 Dose: 100 mls/hr Lisinopril (Prinivil) 2.5 mg PO DAILY [facility] Last Admin: 10/04/18 09:39 Dose: 2.5 mg Metoprolol Succinate (Toprol Xl -) 25 mg PO DAILY [facility] Last Admin: 10/04/18 09:38 Dose: 25 mg Rosuvastatin Calcium (Crestor -) 10 mg PO HS [facility] Last Admin: 10/03/18 21:32 Dose: 10 mg - Objective Vital Signs: Vital Signs Temperature 98.1 F 10/04/18 06:52 Pulse Rate 104 H 10/04/18 06:52 Respiratory Rate 18 10/04/18 06:52 Blood Pressure 148/78 10/04/18 06:52 O2 Sat by Pulse Oximetry (%) 96 10/03/18 21:00 Constitutional: Yes: Anxious, Mild Distress Eyes: Yes: WNL HENT: Yes: WNL Neck: Yes: WNL Cardiovascular: Yes: Regular Rate and Rhythm Respiratory: Yes: Accessory Muscle Use, On Nasal O2, Poor Air Entry, SOB on Exertion, Tachypnea Gastrointestinal: Yes: WNL ...Rectal Exam: Yes: Deferred Genitourinary: Yes: WNL Musculoskeletal: Yes: Muscle Weakness Psychiatric: Yes: WNL, Alert, Oriented Labs: CBC, BMP 10/04/18 06:00 10/04/18 06:00 Problem List - Problems (1) Acute on chronic systolic (congestive) heart failure Assessment/Plan: Cont IV lasix, currently daily dosing, may need BID dosing since weights are increasing slightly. Will not increase at this time as she is hyponatremic. Cardiology consulted and following. monitor electrolytes including magnesium daily. Code(s): I50.23 - ACUTE ON CHRONIC SYSTOLIC (CONGESTIVE) HEART FAILURE (2) Acute renal failure (ARF) Assessment/Plan: as per renal, notes reviewed. Monitor kidney function in presence of diuretics. Code(s): N17.9 - ACUTE KIDNEY FAILURE, UNSPECIFIED Qualifiers: Acute renal failure type: unspecified Qualified Code(s): N17.9 - Acute kidney failure, unspecified (3) Diabetes Assessment/Plan: BGMs with meals. cover with novolog. hmga1c in a.m. Code(s): E11.9 - TYPE 2 DIABETES MELLITUS WITHOUT COMPLICATIONS Qualifiers: Diabetes mellitus type: type 2 (4) Leukocytosis Assessment/Plan: Leukocytosis trending down, however may have underlying pneumonia monitor labs, and vitals signs on IV antibiotics (azithromycin and ceftriaxone) Code(s): D72.829 - ELEVATED WHITE BLOOD CELL COUNT, UNSPECIFIED (5) Pneumonia Assessment/Plan: Unsure if patient has underlying pneumonia. on Azithromycin and ceftriaxone. monitor for fevers pulmonary consult Code(s): J18.9 - PNEUMONIA, UNSPECIFIED ORGANISM (6) CKD (chronic kidney disease) Assessment/Plan: followed by nephrology Code(s): N18.9 - CHRONIC KIDNEY DISEASE, UNSPECIFIED (7) Carotid artery disease Assessment/Plan: on plavix, crestor. Code(s): I77.9 - DISORDER OF ARTERIES AND ARTERIOLES, UNSPECIFIED Qualifiers: Laterality: unspecified laterality (8) Chronic kidney disease Code(s): N18.9 - CHRONIC KIDNEY DISEASE, UNSPECIFIED Qualifiers: Chronic kidney disease stage: unspecified stage Qualified Code(s): N18.9 - Chronic kidney disease, unspecified (9) Diabetes type 2 with atherosclerosis of arteries of extremities Code(s): E11.59 - TYPE 2 DIABETES MELLITUS WITH OTH CIRCULATORY COMPLICATIONS; I70.209 - UNSP ATHSCL CIRCLE ARTERIES OF EXTREMITIES, UNSP EXTREMITY (10) Elevated troponin I level Code(s): R79.89 - OTHER SPECIFIED ABNORMAL FINDINGS OF BLOOD CHEMISTRY (11) HLD (hyperlipidemia) Code(s): E78.5 - HYPERLIPIDEMIA, UNSPECIFIED (12) HTN (hypertension) Assessment/Plan: controlled bp, monitor. Code(s): I10 - ESSENTIAL (PRIMARY) HYPERTENSION Visit type - Emergency Visit Emergency Visit: Yes ED Registration Date: 10/02/18 Care time: The patient presented to the Emergency Department on the above date and was hospitalized for further evaluation of their emergent condition. - New Patient This patient is new to me today: Yes Date on this admission: 10/04/18 - Critical Care Critical Care patient: No - Discharge Referral Referred to [facility] Med P.C.: No
[2018-10-04] MEDS: AZITHROMYCIN IVPB 250 MG in DEXTROSE 5%-WATER - 250 ML IVPB SCH (11:51)
--- NOTE | 2018-10-04 13:31 | CON.NEP ---
Consult Consult Specialty:: nephrology Reason for Consultation:: ckd - History of Present Illness Chief Complaint: dyspnea History of Present Illness: Pt is a 88 y/o female w/ PMH significant for CHF (on O2 3L NC at home, never required bipap or intubation), HTN, HLD, DM and CKD, CAD and CVA . Pt presented to the ER from PCP office (Dr. Rayo Alberts) for CHF exacerbation. Pt's family states that over the last 7 days she has had worsening SOB with mild exertion. PCP gave 80mg lasix (on 20 po daily) due to noted SOB with bilateral pitting edema. Daughter at bedside states pt becomes very SOB with minimal activity and requires up right position for sleeping. In the ER pt found to have vascular congestion on CXR and elevated BNP to >11,000. She is followed by Dr Gomez for nephrology as an outpatient. 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: CVA (Residual rt sided weakness) Cardio/Vascular: Yes: CAD, CHF, HTN, Hyperlipdemia, Other Gastrointestinal: Yes: Peptic Ulcer Disease Renal/: Yes: Renal Inusuff ...: No Musculoskeletal: Yes: Osteoarthritis Rheumatology: Yes: Other (OA) Endocrine: Yes: Diabetes Mellitus - Past Surgical History Past Surgical History: Yes: None - Alcohol/Substance Use Hx Alcohol Use: No - Smoking History Smoking history: Never smoked Have you smoked in the past 12 months: No Aproximately how many cigarettes per day: 0 - Social History Usual Living Arrangement: With Child ADL: Independent History of Recent Travel: No Home Medications - Allergies Allergies/Adverse Reactions: Allergies Allergy/AdvReac Type Severity Reaction Status Date / Time No Known Allergies Allergy Verified 05/03/18 13:15 - Home Medications Home Medications: Ambulatory Orders Clopidogrel Bisulfate [Plavix] 75 mg PO DAILY 04/20/18 Linagliptin [Tradjenta] 5 mg PO DAILY 04/20/18 Metoprolol Succinate [Toprol Xl] 25 mg PO DAILY 04/20/18 Nifedipine ER [Procardia XL -] 30 mg PO DAILY 04/20/18 Rosuvastatin [Crestor -] 10 mg PO HS #30 tablet 05/09/18 Olmesartan Medoxomil [Benicar] 20 mg PO DAILY #30 tablet 05/10/18 Escitalopram Oxalate [Lexapro -] 10 mg PO DAILY 10/02/18 Review of Systems - Review of Systems Constitutional: reports: Weakness Eyes: reports: No Symptoms HENT: reports: No Symptoms Neck: reports: No Symptoms Cardiovascular: reports: No Symptoms, Shortness of Breath Respiratory: reports: Exercise Intolerance Gastrointestinal: reports: No Symptoms Genitourinary: reports: No Symptoms Breasts: reports: No Symptoms Reported Musculoskeletal: reports: No Symptoms Integumentary: reports: No Symptoms Neurological: reports: No Symptoms Endocrine: reports: No Symptoms Hematology/Lymphatic: reports: No Symptoms Psychiatric: reports: No Symptoms Nephrology Consult - Height Height: 5 ft 2 in - Weight Weight: 150 lb 3.2 oz - BMI Body Mass Index (BMI): 27.4 - Lab Results CBC,BMP: CBC, BMP 10/04/18 06:00 10/04/18 06:00 Anion Gap: Anion Gap Anion Gap 11 MMOL/L (8-16) 10/04/18 06:00 - Imaging Chest X-ray: Report Reviewed (possible bilateral pleural effusions) - Physical Examination Vital Signs: Vital Signs Temperature 98.1 F 10/04/18 11:00 Pulse Rate 101 H 10/04/18 11:00 Respiratory Rate 18 10/04/18 11:00 Blood Pressure 140/85 10/04/18 11:00 O2 Sat by Pulse Oximetry (%) 96 10/04/18 11:00 Constitutional: Yes: Well Nourished, No Distress Eyes: Yes: Conjunctiva Clear HENT: Yes: Atraumatic, Normocephalic, Other (some periorbital edema) Neck: Yes: WNL Cardiovascular: Yes: Regular Rate and Rhythm Respiratory: Yes: Rales (both bases) Gastrointestinal: Yes: Normal Bowel Sounds, Soft Renal/: Yes: WNL Musculoskeletal: Yes: WNL Edema: Yes Edema: LLE: Trace, RLE: Trace Wound/Incision: Yes: Clean/Dry Neurological: Yes: Alert, Oriented Psychiatric: Yes: Alert, Oriented Assessment/Plan IMPRESSION This is an 88 year old woman with history ckd and chf who presents with dyspnea and is found to have chf and pneumonia. She seems to have chronic hyponatremia and is close to her baseline creatinine. Interestingly, she also has hypercalcemia probably from hyperparathyroidism PLAN would continue diuretics not sure I would do a major renal work up would check pth however and urine protein and creat monitor electrolytes am cortisol since previous cortisol was low will follow MV
[2018-10-04] MEDS: methylPREDNISolone NA SUCC 40 MG/1 ML VIAL IVPUSH SCH ×2 (17:33→21:53)
[2018-10-04] MEDS: INSULIN SLIDING SCALE (NOVOLOG) 1 VIAL SQ SCH (17:33)
[2018-10-04] MEDS: PANTOPRAZOLE 40 MG TABLET (FP) PO SCH (17:33)
[2018-10-04] MEDS: ALBUTEROL SO4 2.5/IPRATROPIUM 0.5 INH SOL 3 ML VIAL.NEB. NEB PRN (21:13)
[2018-10-04] MEDS: ROSUVASTATIN CA 10 MG TABLET (FP) PO SCH (21:53)
[2018-10-05] MEDS: methylPREDNISolone NA SUCC 40 MG/1 ML VIAL IVPUSH SCH ×4 (02:28→21:57)
[2018-10-05] MEDS: INSULIN SLIDING SCALE (NOVOLOG) 1 VIAL SQ SCH ×3 (06:16→17:38)
[2018-10-05 08:27] LABS: BASO % 0.1 % (0-2.0); HEMATOCRIT 33.7 % (32.4-45.2); HEMOGLOBIN 11.3 GM/dL (10.7-15.3); LYMPH % 4.5 % (8-40); MCH 28.4 pg (25.7-33.7); MCHC 33.6 g/dl (32.0-36.0); MEAN CELL VOLUME 84.5 fl (80-96); MEAN PLT VOLUME 8.4 fl (7.5-11.1); MONO % 2.4 % (3.8-10.2); PLATELET COUNT 514 K/MM3 (134-434); RBC 3.99 M/mm3 (3.60-5.2); RDW 13.8 % (11.6-15.6); WHITE BLOOD COUNT 9.2 K/mm3 (4.0-10.0)
[2018-10-05 08:41] LABS: ALBUMIN 2.3 g/dl (3.4-5.0); BILIRUBIN,TOTAL 0.2 mg/dL (0.2-1); CALCIUM 9.7 mg/dL (8.5-10.1); MAGNESIUM 2.1 mg/dL (1.8-2.4); POTASSIUM 5.4 mmol/L (3.5-5.1); TOT PROT 7.6 g/dl (6.4-8.2)
[2018-10-05] MEDS ORDERED: DEXTROSE 5%-WATER - 50 ML IVPB ONE (09:54)
[2018-10-05] MEDS ORDERED: cefTRIAXone SODIUM 1 GM VIAL ONE (09:54)
[2018-10-05] MEDS: CEFTRIAXONE 1 GM in DEXTROSE 5%-WATER - 50 ML IVPB SCH (09:59)
[2018-10-05] MEDS: FUROSEMIDE 40 MG/4 ML INJECTABLE VIAL IVPUSH SCH (10:00)
[2018-10-05] MEDS: metoPROLOL SUCCINATE 25 MG TAB.SR.24H (FP) PO SCH (10:00)
[2018-10-05] MEDS: HEPARIN NA (PORCINE) 5,000 UNITS/ML 1ML VIAL SQ SCH ×2 (10:00→22:06)
[2018-10-05] MEDS: ESCITALOPRAM OXALATE 10 MG TABLET (FP) PO SCH (10:00)
[2018-10-05] MEDS: LISINOPRIL 5 MG TABLET (FP) PO SCH (10:00)
[2018-10-05] MEDS: PANTOPRAZOLE 40 MG TABLET (FP) PO SCH (10:02)
[2018-10-05] MEDS: CLOPIDOGREL BISULFATE 75 MG TABLET (FP) PO SCH (10:02)
[2018-10-05] MEDS: AZITHROMYCIN IVPB 250 MG in DEXTROSE 5%-WATER - 250 ML IVPB SCH (10:09)
--- NOTE | 2018-10-05 10:12 | PN ---
Progress Note, Physician History of Present Illness: Breathing unchanged but coughing more (productive) Tele: NSR with PVCs - Current Medication List Current Medications: Active Medications Albuterol/Ipratropium (Duoneb -) 1 amp NEB Q6H PRN PRN Reason: SHORTNESS OF BREATH Last Admin: 10/04/18 21:13 Dose: 1 amp Clopidogrel Bisulfate (Plavix -) 75 mg PO DAILY [facility] Last Admin: 10/04/18 09:38 Dose: 75 mg Escitalopram Oxalate (Lexapro -) 10 mg PO DAILY [facility] Last Admin: 10/04/18 09:38 Dose: 10 mg Furosemide (Lasix Injection -) 40 mg IVPUSH DAILY [facility] Last Admin: 10/04/18 09:38 Dose: 40 mg Heparin Sodium (Porcine) (Heparin -) 5,000 unit SQ BID [facility] Last Admin: 10/04/18 21:53 Dose: 5,000 unit Azithromycin 250 mg/ Dextrose 250 mls @ 250 mls/hr IVPB DAILY [facility] Last Admin: 10/04/18 11:51 Dose: 250 mls/hr Ceftriaxone Sodium 1 gm/ (Dextrose) 50 mls @ 100 mls/hr IVPB DAILY [facility]; Protocol Last Admin: 10/04/18 09:39 Dose: 100 mls/hr Insulin Aspart (Novolog Vial Sliding Scale -) 1 vial SQ TIDAC [facility]; Protocol Last Admin: 10/05/18 06:16 Dose: 4 units Lisinopril (Prinivil) 2.5 mg PO DAILY [facility] Last Admin: 10/04/18 09:39 Dose: 2.5 mg Methylprednisolone Sodium Succinate (Solu-Medrol -) 40 mg IVPUSH Q6H-IV [facility] Last Admin: 10/05/18 02:28 Dose: 40 mg Metoprolol Succinate (Toprol Xl -) 25 mg PO DAILY [facility] Last Admin: 10/04/18 09:38 Dose: 25 mg Pantoprazole Sodium (Protonix -) 40 mg PO DAILY [facility] Last Admin: 10/04/18 17:33 Dose: 40 mg Rosuvastatin Calcium (Crestor -) 10 mg PO HS [facility] Last Admin: 10/04/18 21:53 Dose: 10 mg - Objective Vital Signs: Vital Signs Temperature 97.8 F 10/05/18 06:00 Pulse Rate 102 H 10/05/18 06:00 Respiratory Rate 22 H 10/05/18 08:51 Blood Pressure 140/81 10/05/18 06:00 O2 Sat by Pulse Oximetry (%) 95 10/05/18 08:51 Constitutional: Yes: No Distress Eyes: Yes: WNL HENT: Yes: WNL Neck: Yes: Supple Cardiovascular: Yes: Regular Rate and Rhythm Respiratory: Yes: Rales, Rhonchi Edema: No Labs: CBC, BMP 10/05/18 06:00 10/05/18 06:00 Assessment/Plan IMP: 1. Acute on chronic systolic CHF, slowly improving, still crackles in lungs. 2. Suspected underlying CAD 3. CKD REC: 1. Continue IV Lasix 40mg daily, Creat stable at 2.0. May need to hold tomorrow 3. Cont home dose Lisinopril, Toprol
--- NOTE | 2018-10-05 11:36 | PN ---
Progress Note (short form) - Note Progress Note: RENAL Pt is awake and alert daughter by bedside comfortable Last Vital Signs Temp Pulse Resp BP Pulse Ox 98.1 F 105 H 22 H 125/72 95 10/05/18 10:00 10/05/18 10:00 10/05/18 10:00 10/05/18 10:00 10/05/18 08:51 lungs crackles at bases cvs s1s2 rr abd soft, no suprapubic fullness ext no edema neuro a+ox3 Current Medications Generic Name Dose Route Start Last Admin Trade Name Freq PRN Reason Stop Dose Admin Albuterol/Ipratropium 1 amp 10/02/18 16:51 10/04/18 21:13 Duoneb - NEB 1 amp Q6H PRN Administration SHORTNESS OF BREATH Clopidogrel Bisulfate 75 mg 10/02/18 16:45 10/05/18 10:02 Plavix - PO 75 mg DAILY [facility] Administration Escitalopram Oxalate 10 mg 10/02/18 17:00 10/05/18 10:00 Lexapro - PO 10 mg DAILY [facility] Administration Furosemide 40 mg 10/03/18 10:00 10/05/18 10:00 Lasix Injection - IVPUSH 40 mg DAILY [facility] Administration Heparin Sodium (Porcine) 5,000 unit 10/02/18 22:00 10/05/18 10:00 Heparin - SQ 5,000 unit BID [facility] Administration Azithromycin 250 mg/ Dextrose 250 mls @ 250 mls/hr 10/03/18 10:00 10/05/18 10 :09 IVPB 250 mls/hr DAILY [facility] Administration Ceftriaxone Sodium 1 gm/ 50 mls @ 100 mls/hr 10/03/18 10:00 10/05/18 09:59 Dextrose IVPB 100 mls/hr DAILY [facility] Administration Protocol Insulin Aspart 1 vial 10/04/18 17:15 10/05/18 06:16 Novolog Vial Sliding Scale - SQ 4 units TIDAC [facility] Administration Protocol Lisinopril 2.5 mg 10/03/18 10:00 10/05/18 10:00 Prinivil PO 2.5 mg DAILY [facility] Administration Methylprednisolone Sodium Succinate 40 mg 10/04/18 16:45 10/05/18 10:00 Solu-Medrol - IVPUSH 40 mg Q6H-IV [facility] Administration Metoprolol Succinate 25 mg 10/02/18 17:00 10/05/18 10:00 Toprol Xl - PO 25 mg DAILY [facility] Administration Pantoprazole Sodium 40 mg 10/04/18 17:00 10/05/18 10:02 Protonix - PO 40 mg DAILY [facility] Administration Rosuvastatin Calcium 10 mg 10/02/18 22:00 10/04/18 21:53 Crestor - PO 10 mg HS [facility] Administration CBC, BMP 10/05/18 06:00 10/05/18 06:00 IMPRESSION This is an 88 year old woman with history ckd and chf who presents with dyspnea and is found to have chf and pneumonia. She seems to have chronic hyponatremia and is close to her baseline creatinine. Interestingly, she also has hypercalcemia probably from hyperparathyroidism. Her sodium is worsening while on diuretics. She is also hyperkalemic which could suggest adrenal insuff but melvin be from the ckd and marjan inhibito PLAN will need to hold diuretics for now and monitor sodium await pth level kayexalate or veltassa am cortisol since previous cortisol was low, but pt on steroids escitalopram can cause hyponatremia and would consider holding MV
[2018-10-05] MEDS ORDERED: SODIUM POLYSTYRENE SULFONATE 15 GM/60 ML BOTTLE PO ONE (11:47)
--- NOTE | 2018-10-05 11:57 | PN ---
Progress Note (short form) - Note Progress Note: PULMONARY CONSULTATION DICTATED 10/05/18 IMP DYSPNEA ACUTE ON CHRONIC CHF ACUTE ON CHRONIC KIDNEY DISEASE ? ASHD HTN DM HLD H/O CVA PLAN IV LASIX DAILY WT SUPPLEMENTAL O2 INHALED BRONCHODILATORS ORN MONITOR LYTES,RENAL FUNCTION F/U CHEST X-RAYS CHEST CT TAPER STEROIDS CONSIDER D/C ABX AFTER CHEST CT REVIEWED DR RENEE
[2018-10-05 12:14] LABS: ANISOCYTOSIS 0; MACROCYTOSIS 0; PLATELET ESTIMATE INCREASED
--- NOTE | 2018-10-05 12:45 | CONS ---
DATE OF CONSULTATION: 10/05/2018 REFERRING PROVIDER: JESSE Gracia The patient is an 88-year-old female with a past medical history of chronic systolic heart failure, with moderate to severe LV dysfunction, worsening over the past 2 years, possibly ischemic chronic kidney disease, history of CVA, residual right-sided weakness, hypertension, ASHD, hyperlipidemia, diabetes, osteoarthritis, nonsmoker, admitted to [facility] with complaint of increasing shortness of breath and chest congestion over the past 7 days. The patient, for the past 7 days has increasing shortness of breath and dyspnea on exertion and a cough which is nonproductive. She went to see a PMD in the office, at which time she was provided Lasix 80 mg, without any improvement. She started noticing increasing lower extremity edema. After the PMD, she became very short of breath with minimal exertion, at which time she was transferred to [facility] ER and subsequently admitted for acute congestive heart failure. The patient is a nonsmoker. There is no history of occupational exposure to chemicals or fumes. She is not currently on home O2. There is no history of recent travel. There is no history of DVT or PE in the past. On admission, she was evaluated by renal as well as cardiology consult. She was placed on IV Lasix, with good clinical response. She was also placed on antibiotic therapy. Past medical history, again, includes chronic congestive heart failure, moderate to severe LV dysfunction, hypertension, hyperlipidemia, diabetes, chronic kidney disease, likely ASHD, history of CVA, residual right-sided weakness. REVIEW OF SYSTEMS: Positive orthopnea, positive cough. No sputum. No fever, no chills. No weight loss, no night sweats, no hemoptysis, no abdominal pain. Positive increasing lower extremity edema. Current medications include Solu-Medrol 40 q.6, Prinivil, Zithromax, ceftriaxone , heparin, Lexapro, DuoNeb, metoprolol, Crestor, NovoLog, Plavix, Protonix. PHYSICAL EXAMINATION: General: The patient is an elderly female, awake, alert, in no acute distress. Vital Signs: She is currently afebrile. Blood pressure 125/72. Heart rate is 105. Respiratory rate is 22. O2 saturation is 96% on 2 L. HEENT: Normocephalic, atraumatic. Neck: Supple. Heart: Regular, S1, S2. Chest: Diffuse bilateral crackles. Abdomen: Soft. Bowel sounds are positive. Extremities: Bilateral lower extremity edema. LABORATORY DATA: WBC is 9.2, hemoglobin 11.3, hematocrit 33.7, platelet count of 514,000. INR is 1.05. Blood gas not performed. Chemistries: BUN 50, creatinine 2.0. BNP is 11,130. Chest x-ray: Bilateral pulmonary vascular congestion. IMPRESSION: 1. Shortness of breath, dyspnea, secondary to acute on chronic congestive heart failure. 2. Acute on chronic kidney disease. 3. Likely arteriosclerotic heart disease. 4. Hypertension. 5. Diabetes. 6. Hyperlipidemia. 7. History of cerebrovascular accident with residual right-sided weakness. PLAN: IV Lasix, supplemental O2. Daily weights, monitor electrolytes, follow renal function, follow up chest x-ray. Chest ct. Steroid taper. Abx pending results of chest ct. Daily wt Verenice FRANCO/[id number] MTDD
[2018-10-05] MEDS: ALBUTEROL SO4 2.5/IPRATROPIUM 0.5 INH SOL 3 ML VIAL.NEB. NEB PRN (20:05)
[2018-10-05] MEDS: ROSUVASTATIN CA 10 MG TABLET (FP) PO SCH (21:57)
--- NOTE | 2018-10-05 22:44 | PN ---
Progress Note, Physician History of Present Illness: No new complaints - Current Medication List Current Medications: Active Medications Albuterol/Ipratropium (Duoneb -) 1 amp NEB Q6H PRN PRN Reason: SHORTNESS OF BREATH Last Admin: 10/05/18 20:05 Dose: 1 amp Clopidogrel Bisulfate (Plavix -) 75 mg PO DAILY [facility] Last Admin: 10/05/18 10:02 Dose: 75 mg Escitalopram Oxalate (Lexapro -) 10 mg PO DAILY [facility] Last Admin: 10/05/18 10:00 Dose: 10 mg Heparin Sodium (Porcine) (Heparin -) 5,000 unit SQ BID [facility] Last Admin: 10/05/18 22:06 Dose: 5,000 unit Azithromycin 250 mg/ Dextrose 250 mls @ 250 mls/hr IVPB DAILY [facility] Last Admin: 10/05/18 10:09 Dose: 250 mls/hr Ceftriaxone Sodium 1 gm/ (Dextrose) 50 mls @ 100 mls/hr IVPB DAILY [facility]; Protocol Last Admin: 10/05/18 09:59 Dose: 100 mls/hr Insulin Aspart (Novolog Vial Sliding Scale -) 1 vial SQ TIDAC [facility]; Protocol Last Admin: 10/05/18 17:38 Dose: 6 units Lisinopril (Prinivil) 2.5 mg PO DAILY [facility] Last Admin: 10/05/18 10:00 Dose: 2.5 mg Methylprednisolone Sodium Succinate (Solu-Medrol -) 40 mg IVPUSH Q6H-IV [facility] Last Admin: 10/05/18 21:57 Dose: 40 mg Metoprolol Succinate (Toprol Xl -) 25 mg PO DAILY [facility] Last Admin: 10/05/18 10:00 Dose: 25 mg Pantoprazole Sodium (Protonix -) 40 mg PO DAILY [facility] Last Admin: 10/05/18 10:02 Dose: 40 mg Rosuvastatin Calcium (Crestor -) 10 mg PO HS [facility] Last Admin: 10/05/18 21:57 Dose: 10 mg - Objective Vital Signs: Vital Signs Temperature 98.6 F 10/05/18 18:00 Pulse Rate 97 H 10/05/18 18:00 Respiratory Rate 19 10/05/18 21:00 Blood Pressure 163/72 10/05/18 18:00 O2 Sat by Pulse Oximetry (%) 97 10/05/18 21:00 Neck: Yes: WNL, Supple Cardiovascular: Yes: WNL, Regular Rate and Rhythm Respiratory: Yes: Rhonchi, Wheezes Gastrointestinal: Yes: WNL, Normal Bowel Sounds, Soft Labs: CBC, BMP 10/05/18 06:00 10/05/18 06:00 Problem List - Problems (1) Dyspnea Assessment/Plan: CXR shows some inmprovement CT scan chest pending Cont nebulizers/IV atnibxs/IV steroids Code(s): R06.00 - DYSPNEA, UNSPECIFIED (2) Acute on chronic systolic (congestive) heart failure Assessment/Plan: Cont IV lasix Monitor electrolytes Code(s): I50.23 - ACUTE ON CHRONIC SYSTOLIC (CONGESTIVE) HEART FAILURE (3) Leukocytosis Assessment/Plan: ?Underlying pneumonia Pulmonary consult Cont IV ceftriaxone/zithro Cont nebulizers May need repeat CXR Follow WBC Code(s): D72.829 - ELEVATED WHITE BLOOD CELL COUNT, UNSPECIFIED (4) CKD (chronic kidney disease) Assessment/Plan: Renal consult Code(s): N18.9 - CHRONIC KIDNEY DISEASE, UNSPECIFIED (5) HTN (hypertension) Assessment/Plan: BP stable Cont metoprolol/lisinopril Code(s): I10 - ESSENTIAL (PRIMARY) HYPERTENSION (6) HLD (hyperlipidemia) Assessment/Plan: Cont crestor Code(s): E78.5 - HYPERLIPIDEMIA, UNSPECIFIED (7) Osteoarthritis Code(s): M19.90 - UNSPECIFIED OSTEOARTHRITIS, UNSPECIFIED SITE Qualifiers: Osteoarthritis location: knee Osteoarthritis type: unspecified Laterality : right Qualified Code(s): M17.11 - Unilateral primary osteoarthritis, right knee (8) CAD (coronary artery disease) Assessment/Plan: Cont plavix Code(s): I25.10 - ATHSCL HEART DISEASE OF [place] CORONARY ARTERY W/O ANG PCTRS
[2018-10-06] MEDS: methylPREDNISolone NA SUCC 40 MG/1 ML VIAL IVPUSH SCH ×3 (02:54→22:56)
[2018-10-06] MEDS: INSULIN SLIDING SCALE (NOVOLOG) 1 VIAL SQ SCH ×3 (06:28→16:16)
[2018-10-06 06:52] LABS: BASO % 0.1 % (0-2.0); HEMATOCRIT 29.3 % (32.4-45.2); HEMOGLOBIN 9.7 GM/dL (10.7-15.3); LYMPH % 3.1 % (8-40); MCH 27.5 pg (25.7-33.7); MCHC 33.2 g/dl (32.0-36.0); MEAN CELL VOLUME 82.8 fl (80-96); MONO % 5.2 % (3.8-10.2); NEUT % 91.6 % (42.8-82.8); PLATELET COUNT 580 K/MM3 (134-434); RBC 3.54 M/mm3 (3.60-5.2); RDW 13.8 % (11.6-15.6); WHITE BLOOD COUNT 15.4 K/mm3 (4.0-10.0)
[2018-10-06 07:16] LABS: ALBUMIN 2.2 g/dl (3.4-5.0); BILIRUBIN,TOTAL 0.2 mg/dL (0.2-1); CALCIUM 9.2 mg/dL (8.5-10.1); CREATININE 2.1 mg/dL (0.55-1.3); POTASSIUM 4.6 mmol/L (3.5-5.1)
[2018-10-06] MEDS ORDERED: cefTRIAXone SODIUM 1 GM VIAL ONE (09:42)
[2018-10-06] MEDS ORDERED: DEXTROSE 5%-WATER - 50 ML IVPB ONE ×3 (09:42→16:37)
[2018-10-06] MEDS: ESCITALOPRAM OXALATE 10 MG TABLET (FP) PO SCH (10:24)
[2018-10-06] MEDS: CLOPIDOGREL BISULFATE 75 MG TABLET (FP) PO SCH (10:25)
[2018-10-06] MEDS: HEPARIN NA (PORCINE) 5,000 UNITS/ML 1ML VIAL SQ SCH ×2 (10:25→22:55)
[2018-10-06] MEDS: LISINOPRIL 5 MG TABLET (FP) PO SCH (10:25)
[2018-10-06] MEDS: PANTOPRAZOLE 40 MG TABLET (FP) PO SCH (10:25)
[2018-10-06] MEDS: metoPROLOL SUCCINATE 25 MG TAB.SR.24H (FP) PO SCH (10:25)
--- NOTE | 2018-10-06 10:29 | PN ---
Progress Note, Physician Chief Complaint: sob History of Present Illness: breathing much better--in fact denies any sob on leg swelling no cp, palp no cigs - Current Medication List Current Medications: Active Medications Albuterol/Ipratropium (Duoneb -) 1 amp NEB Q6H PRN PRN Reason: SHORTNESS OF BREATH Last Admin: 10/05/18 20:05 Dose: 1 amp Clopidogrel Bisulfate (Plavix -) 75 mg PO DAILY [facility] Last Admin: 10/05/18 10:02 Dose: 75 mg Escitalopram Oxalate (Lexapro -) 10 mg PO DAILY [facility] Last Admin: 10/05/18 10:00 Dose: 10 mg Heparin Sodium (Porcine) (Heparin -) 5,000 unit SQ BID [facility] Last Admin: 10/05/18 22:06 Dose: 5,000 unit Azithromycin 250 mg/ Dextrose 250 mls @ 250 mls/hr IVPB DAILY [facility] Last Admin: 10/05/18 10:09 Dose: 250 mls/hr Ceftriaxone Sodium 1 gm/ (Dextrose) 50 mls @ 100 mls/hr IVPB DAILY [facility]; Protocol Last Admin: 10/05/18 09:59 Dose: 100 mls/hr Insulin Aspart (Novolog Vial Sliding Scale -) 1 vial SQ TIDAC [facility]; Protocol Last Admin: 10/06/18 06:28 Dose: 6 units Lisinopril (Prinivil) 2.5 mg PO DAILY [facility] Last Admin: 10/05/18 10:00 Dose: 2.5 mg Methylprednisolone Sodium Succinate (Solu-Medrol -) 40 mg IVPUSH Q6H-IV [facility] Last Admin: 10/06/18 02:54 Dose: 40 mg Metoprolol Succinate (Toprol Xl -) 25 mg PO DAILY [facility] Last Admin: 10/05/18 10:00 Dose: 25 mg Pantoprazole Sodium (Protonix -) 40 mg PO DAILY [facility] Last Admin: 10/05/18 10:02 Dose: 40 mg Rosuvastatin Calcium (Crestor -) 10 mg PO HS [facility] Last Admin: 10/05/18 21:57 Dose: 10 mg - Objective Vital Signs: Vital Signs Temperature 98.1 F 10/06/18 08:56 Pulse Rate 118 H 10/06/18 08:56 Respiratory Rate 20 10/06/18 08:56 Blood Pressure 150/83 10/06/18 08:56 O2 Sat by Pulse Oximetry (%) 97 10/06/18 08:51 Constitutional: Yes: No Distress, Calm Eyes: No: Sclera Icterus HENT: No: Nasal Congestion Cardiovascular: Yes: Regular Rate and Rhythm, JVD, S1, S2, Other (PMI non diplaced). No: Gallop, Murmur Respiratory: Yes: Rales (diffuse crackles), Wheezes. No: Accessory Muscle Use Gastrointestinal: Yes: Normal Bowel Sounds, Soft. No: Tenderness Musculoskeletal: Yes: Other (No kyphosis) Extremities: No: Cold, Cyanosis Edema: No Integumentary: No: Jaundice Neurological: Yes: Alert, Oriented (x3) Psychiatric: No: Agitated Labs: CBC, BMP 10/06/18 06:05 10/06/18 06:05 Assessment/Plan echo: LVSF appears mldly reduced, 40-45%. nl RV. mild MR. tele: sinus with s.t., PVCs. NSVT x 4 b IMP: 1. Acute on chronic systolic CHF. no weights here--ordered. + mild JVD, ++ extensive crackles and wheezes on exam. CXR slightly improved bases, but extensive congestive changes persist (images reviewed: + extensive intra- alveolar infiltrates with cephalization pattern). BUN/Creat worsening, hyponatremia worsening--? overdiuresis (do not expect pt with EF 40-45% range to have diuresis-limiting low cardiac output). 2. Suspected underlying CAD--pt/family have declined cath due to MIKE risks (see dr welsh notes) 3. JACK on CKD, r/o cardiorenal syndrome 4. NSVT REC: -followup CT chest. Xray findings new vs 05/24--hence suspect sec to CHF but pt becoming prerenal with diuresis here. ? acute inflammatory/infectious findings ( normal temp curve with elevated PLTs, mild leukocytosis)--continued pulm f/u -cont present metoprolol, Lisinopril at home doses (will not incr BB given diffuse wheezing) -Cont tele monitoring for VT (24 hrs more) in light of NSVT run. K/Mag good-- usual repletion targets -outpt cardio f/u
[2018-10-06] MEDS: CEFTRIAXONE 1 GM in DEXTROSE 5%-WATER - 50 ML IVPB SCH (10:39)
[2018-10-06] MEDS: AZITHROMYCIN IVPB 250 MG in DEXTROSE 5%-WATER - 250 ML IVPB SCH (10:40)
[2018-10-06 10:59] LABS: ANISOCYTOSIS 0; MACROCYTOSIS 0; PLATELET ESTIMATE INCREASED
--- NOTE | 2018-10-06 12:11 | PN ---
Progress Note (short form) - Note Progress Note: Renal follow up for JACK/Fluid overload Pt seen and examined at the bedside awake and alert no acute complaints denies any sob, cp, abd pain on NC O2 appears mildly uncomfortable reports making urine daughter at the bedside Vital Signs Temperature 98.1 F 10/06/18 08:56 Pulse Rate 118 H 10/06/18 08:56 Respiratory Rate 20 10/06/18 08:56 Blood Pressure 150/83 10/06/18 08:56 O2 Sat by Pulse Oximetry (%) 97 10/06/18 08:51 Intake & Output 10/03/18 10/04/18 10/05/18 10/06/18 23:59 23:59 23:59 23:59 Intake Total 120 640 120 370 Balance 120 640 120 370 Weight 68.13 kg NAD on NC O2 RRR + rales at bilateral lung bases soft NT/ND no LE or sacral edema CBC, BMP 10/06/18 06:05 10/06/18 06:05 Current Medications Albuterol/Ipratropium (Duoneb -) 1 amp NEB Q6H PRN PRN Reason: SHORTNESS OF BREATH Last Admin: 10/05/18 20:05 Dose: 1 amp Clopidogrel Bisulfate (Plavix -) 75 mg PO DAILY [facility] Last Admin: 10/06/18 10:25 Dose: 75 mg Escitalopram Oxalate (Lexapro -) 10 mg PO DAILY [facility] Last Admin: 10/06/18 10:24 Dose: 10 mg Heparin Sodium (Porcine) (Heparin -) 5,000 unit SQ BID [facility] Last Admin: 10/06/18 10:25 Dose: 5,000 unit Insulin Aspart (Novolog Vial Sliding Scale -) 1 vial SQ TIDAC [facility]; Protocol Last Admin: 10/06/18 06:28 Dose: 6 units Lisinopril (Prinivil) 2.5 mg PO DAILY [facility] Last Admin: 10/06/18 10:25 Dose: 2.5 mg Methylprednisolone Sodium Succinate (Solu-Medrol -) 40 mg IVPUSH Q6H-IV [facility] Last Admin: 10/06/18 10:39 Dose: 40 mg Metoprolol Succinate (Toprol Xl -) 25 mg PO DAILY [facility] Pantoprazole Sodium (Protonix -) 40 mg PO DAILY [facility] Last Admin: 10/06/18 10:25 Dose: 40 mg Rosuvastatin Calcium (Crestor -) 10 mg PO HS [facility] Last Admin: 10/05/18 21:57 Dose: 10 mg 88 yr old woman with a PMH of severe systolic CHF (on O2 3L NC at home, never required bipap or intubation), HTN, HLD, DM and CKD (baseline Cr ~1.6), CAD, and CVA who was sent in by Dr. Rayo Alberts for CHF exacerbation. 88 year old woman with hx of CKD stage 3 (baseline Cr 1.4-1.6), CHF, HTN, HLD, DM, CAD who presented with sob and admitted for CHF exacerbation wit JCAK on CKD. #JACK on CKD r/o Cardio-renal syndrome vs. ATN #Hyponatremia (hypervolemic) #CHF exacerbation #Hypertension #CAD #DM BUN/Cr higher then baseline and serum Na remains essentially unchanged Fludi restriction of 1L daily for now given low Na level Low salt diet CT of the chest done this AM, offical read pending but appears to have b/l effusions if official read is consistent with CHF would resume diuretics hold ACEi for now given rising BUN/Cr and to allow for aggressive diuresis if needed BP goal < 140/90 for now Cardiology following Thank you Javon Cota DO
--- NOTE | 2018-10-06 12:40 | PN ---
Progress Note, Physician History of Present Illness: PULMONARY ALERT FEELING BETTER,STILL VERY CONGESTED ,+ NON-PRODUCTIVE COUGH - Current Medication List Current Medications: Active Medications Albuterol/Ipratropium (Duoneb -) 1 amp NEB Q6H PRN PRN Reason: SHORTNESS OF BREATH Last Admin: 10/05/18 20:05 Dose: 1 amp Clopidogrel Bisulfate (Plavix -) 75 mg PO DAILY [facility] Last Admin: 10/06/18 10:25 Dose: 75 mg Escitalopram Oxalate (Lexapro -) 10 mg PO DAILY [facility] Last Admin: 10/06/18 10:24 Dose: 10 mg Heparin Sodium (Porcine) (Heparin -) 5,000 unit SQ BID [facility] Last Admin: 10/06/18 10:25 Dose: 5,000 unit Insulin Aspart (Novolog Vial Sliding Scale -) 1 vial SQ TIDAC [facility]; Protocol Last Admin: 10/06/18 12:14 Dose: 6 units Lisinopril (Prinivil) 2.5 mg PO DAILY [facility] Last Admin: 10/06/18 10:25 Dose: 2.5 mg Methylprednisolone Sodium Succinate (Solu-Medrol -) 40 mg IVPUSH Q6H-IV [facility] Last Admin: 10/06/18 10:39 Dose: 40 mg Metoprolol Succinate (Toprol Xl -) 25 mg PO DAILY [facility] Pantoprazole Sodium (Protonix -) 40 mg PO DAILY [facility] Last Admin: 10/06/18 10:25 Dose: 40 mg Rosuvastatin Calcium (Crestor -) 10 mg PO HS [facility] Last Admin: 10/05/18 21:57 Dose: 10 mg - Objective Vital Signs: Vital Signs Temperature 98.1 F 10/06/18 08:56 Pulse Rate 118 H 10/06/18 08:56 Respiratory Rate 20 10/06/18 08:56 Blood Pressure 150/83 10/06/18 08:56 O2 Sat by Pulse Oximetry (%) 97 10/06/18 08:51 Constitutional: Yes: Well Nourished, Calm Eyes: Yes: WNL HENT: Yes: WNL Neck: Yes: WNL Cardiovascular: Yes: Regular Rate and Rhythm, S1, S2 Respiratory: Yes: Rales, Rhonchi (DIFFUSE CONCEPCION RHONCHI AND RALES) Gastrointestinal: Yes: Normal Bowel Sounds, Soft Extremities: Yes: WNL Edema: No Labs: CBC, BMP 10/06/18 06:05 10/06/18 06:05 - ....Imaging Cat Scan: Report Reviewed, Image Reviewed (BILATERAL AIRSPACE OPACITIES,CONCEPCION PLEURAL EFFUSIONS) Problem List - Problems (1) Acute on chronic systolic (congestive) heart failure Code(s): I50.23 - ACUTE ON CHRONIC SYSTOLIC (CONGESTIVE) HEART FAILURE (2) CHF exacerbation Code(s): I50.9 - HEART FAILURE, UNSPECIFIED (3) CVA (cerebral vascular accident) Code(s): I63.9 - CEREBRAL INFARCTION, UNSPECIFIED (4) Dyspnea Code(s): R06.00 - DYSPNEA, UNSPECIFIED (5) Leukocytosis Code(s): D72.829 - ELEVATED WHITE BLOOD CELL COUNT, UNSPECIFIED (6) Acute renal failure (ARF) Code(s): N17.9 - ACUTE KIDNEY FAILURE, UNSPECIFIED Qualifiers: Acute renal failure type: unspecified Qualified Code(s): N17.9 - Acute kidney failure, unspecified (7) CAD (coronary artery disease) Code(s): I25.10 - ATHSCL HEART DISEASE OF [place] CORONARY ARTERY W/O ANG PCTRS (8) Cardiomyopathy Code(s): I42.9 - CARDIOMYOPATHY, UNSPECIFIED Qualifiers: Cardiomyopathy type: unspecified Qualified Code(s): I42.9 - Cardiomyopathy , unspecified (9) Diabetes Code(s): E11.9 - TYPE 2 DIABETES MELLITUS WITHOUT COMPLICATIONS Qualifiers: Diabetes mellitus type: type 2 (10) HLD (hyperlipidemia) Code(s): E78.5 - HYPERLIPIDEMIA, UNSPECIFIED (11) History of stroke Code(s): Z86.73 - PRSNL HX OF TIA (TIA), AND CEREB INFRC W/O RESID DEFICITS Assessment/Plan IMP DYSPNEA IMPROVING ACUTE ON CHRONIC CHF ACUTE ON CHRONIC KIDNEY DISEASE ? ASHD HTN DM HLD H/O CVA ? PNEUMONIA HYPONATREMIA PLAN IV LASIX DAILY WT SUPPLEMENTAL O2 INHALED BRONCHODILATORS ORN MONITOR LYTES,RENAL FUNCTION F/U CHEST X-RAYS TAPER STEROIDS ABX DR RENEE
--- NOTE | 2018-10-06 15:33 | PN ---
Progress Note (short form) - Note Progress Note: ID CONSULT DICTATED CHF R/O PNEUMONIA HYPONATREMIA CKD DM OBTAIN BC, SPUTUM C/S, LEGIONELLA/PNEUMOCOCCAL AG EMPIRIC ZOSYN/ ZITHROMAX DISCUSSED WITH DAUGHTER AT BEDSIDE
[2018-10-06] MEDS ORDERED: PIPERACILLIN/TAZOBACTAM 2.25 GM VIAL IVPB ONE ×2 (15:49→16:37)
[2018-10-06] MEDS: PIPERACILLIN/TAZOB 2.25 GM 2.25 GM in DEXTROSE 5%-WATER - 50 ML IVPB SCH ×2 (16:11→18:47)
--- NOTE | 2018-10-06 17:27 | CONS ---
DATE OF CONSULTATION: DATE OF DICTATION: 10/06/2018 INFECTIOUS DISEASE CONSULTATION HISTORY OF PRESENT ILLNESS: The patient is an 88-year-old female evaluated for pneumonia. History was obtained from the chart as well as the patient and the patient's daughter who was present at the time of the examination. She was admitted to the hospital on October 02, 2018, with worsening shortness of breath and lower extremity edema. She was diagnosed with congestive heart failure. She was treated with Lasix prior to admission. In the emergency room, patient had rales both lung [place]. She was treated for decompensated CHF and possible superimposed pneumonia with Zithromax and ceftriaxone. A CAT scan of the chest was done and showed bilateral pleural effusion right greater than left with patchy infiltrates bilaterally. Her course has been complicated by elevated white blood cell count. The patient is awake and alert in bed. She is noted to have a cough. Daughter reports that the cough is nonproductive. She denies any chest pain or hemoptysis. She is afebrile. Patient lives at home with her daughter and granddaughter. She is a nonsmoker, no history of tobacco exposure, secondhand smoke, no ill contacts, no recent hospitalizations. Last hospitalization was in May 2018. No recent travel or significant pet exposure. He did not receive influenza and pneumococcal vaccines by choice. PAST MEDICAL HISTORY: Positive for congestive heart failure, coronary artery disease, hypertension, stroke, hyperlipidemia, diabetes mellitus, chronic kidney disease. ALLERGIES: No known allergies. MEDICATION: Plavix, Tradjenta, Toprol, Procardia, Crestor, Benicar, Lexapro, methylprednisolone. SOCIAL HISTORY: As per HPI. SYSTEMS REVIEW: Neurologic: Positive for stroke. No loss of consciousness, seizure activity. Cardiac: Negative for chest pain or palpitations. Respiratory: As per HPI. Gastrointestinal: Negative vomiting or diarrhea. Genitourinary: Negative for urinary tract infection. LABORATORY DATA: White count 15.4, hematocrit 29.3, platelets 380, BUN 55, creatinine 2.1. Sodium 125. PHYSICAL EXAMINATION: General: On exam, the patient is awake and alert, seated in bed. Morbidly obese. Vital signs: Temperature 99, blood pressure 151/80, pulse 114, respirations 18 per minute. HEENT: Sclerae anicteric. Cardiovascular: Heart sounds S1, S2. Lungs: Crepitations bases bilaterally. Abdomen: Obese. Soft, nontender. Extremities: 1+ edema. IMPRESSION: 1. Decompensated congestive heart failure. 2. Rule out superimposed pneumonia. 3. Hyponatremia. 4. Azotemia. 5. Diabetes mellitus. Obtain blood cultures, sputum cultures, urine legionella and pneumococcal antigens. Continue empiric Zithromax and Zosyn. Hyponatremia may reflect an atypical pneumonia such as legionella versus congestive heart failure. Case discussed with daughter, present at the time of examination. Thank you for the kind referral. AVA QUESADA M.D. [id number]
--- NOTE | 2018-10-06 22:28 | PN ---
Progress Note, Physician History of Present Illness: No new complaints - Current Medication List Current Medications: Active Medications Albuterol/Ipratropium (Duoneb -) 1 amp NEB Q6H PRN PRN Reason: SHORTNESS OF BREATH Last Admin: 10/05/18 20:05 Dose: 1 amp Clopidogrel Bisulfate (Plavix -) 75 mg PO DAILY [facility] Last Admin: 10/06/18 10:25 Dose: 75 mg Escitalopram Oxalate (Lexapro -) 10 mg PO DAILY [facility] Last Admin: 10/06/18 10:24 Dose: 10 mg Heparin Sodium (Porcine) (Heparin -) 5,000 unit SQ BID [facility] Last Admin: 10/06/18 10:25 Dose: 5,000 unit Piperacillin Sod/Tazobactam (Sod 2.25 gm/ Dextrose) 50 mls @ 100 mls/hr IVPB Q8H-IV [facility]; Protocol Last Admin: 10/06/18 18:47 Dose: 100 mls/hr Azithromycin (Zithromax 500mg Ivpb (Pre-Docked)) 500 mg in 250 mls @ 250 mls/ hr IVPB DAILY [facility] Insulin Aspart (Novolog Vial Sliding Scale -) 1 vial SQ TIDAC [facility]; Protocol Last Admin: 10/06/18 16:16 Dose: 6 units Lisinopril (Prinivil) 2.5 mg PO DAILY [facility] Last Admin: 10/06/18 10:25 Dose: 2.5 mg Methylprednisolone Sodium Succinate (Solu-Medrol -) 40 mg IVPUSH BID [facility] Metoprolol Succinate (Toprol Xl -) 25 mg PO DAILY [facility] Pantoprazole Sodium (Protonix -) 40 mg PO DAILY [facility] Last Admin: 10/06/18 10:25 Dose: 40 mg Rosuvastatin Calcium (Crestor -) 10 mg PO HS [facility] Last Admin: 10/05/18 21:57 Dose: 10 mg - Objective Vital Signs: Vital Signs Temperature 98.5 F 10/06/18 18:27 Pulse Rate 105 H 10/06/18 18:27 Respiratory Rate 18 10/06/18 18:27 Blood Pressure 160/112 H 10/06/18 18:27 O2 Sat by Pulse Oximetry (%) 97 10/06/18 08:51 Cardiovascular: Yes: WNL, Regular Rate and Rhythm Respiratory: Yes: Diminished, Rhonchi Gastrointestinal: Yes: WNL, Normal Bowel Sounds, Soft, Abdomen, Obese Edema: LLE: Trace, RLE: Trace Labs: CBC, BMP 10/06/18 06:05 10/06/18 06:05 Problem List - Problems (1) Pneumonia Assessment/Plan: IV antibxs changed Cont nebulizers/IV steroids Code(s): J18.9 - PNEUMONIA, UNSPECIFIED ORGANISM (2) Acute on chronic systolic (congestive) heart failure Assessment/Plan: Lasix on hold due to increasing creatinine and decreasing sodium As per cardio Code(s): I50.23 - ACUTE ON CHRONIC SYSTOLIC (CONGESTIVE) HEART FAILURE (3) CKD (chronic kidney disease) Assessment/Plan: Renal consult Code(s): N18.9 - CHRONIC KIDNEY DISEASE, UNSPECIFIED (4) HTN (hypertension) Assessment/Plan: BP stable Cont metoprolol/lisinopril Code(s): I10 - ESSENTIAL (PRIMARY) HYPERTENSION (5) HLD (hyperlipidemia) Assessment/Plan: Cont crestor Code(s): E78.5 - HYPERLIPIDEMIA, UNSPECIFIED (6) Osteoarthritis Code(s): M19.90 - UNSPECIFIED OSTEOARTHRITIS, UNSPECIFIED SITE Qualifiers: Osteoarthritis location: knee Osteoarthritis type: unspecified Laterality : right Qualified Code(s): M17.11 - Unilateral primary osteoarthritis, right knee (7) CAD (coronary artery disease) Assessment/Plan: Cont plavix Code(s): I25.10 - ATHSCL HEART DISEASE OF [place] CORONARY ARTERY W/O ANG PCTRS
[2018-10-06] MEDS: ROSUVASTATIN CA 10 MG TABLET (FP) PO SCH (22:56)
[2018-10-07] MEDS ORDERED: PIPERACILLIN/TAZOBACTAM 2.25 GM VIAL IVPB ONE ×3 (01:16→17:27)
[2018-10-07] MEDS ORDERED: DEXTROSE 5%-WATER - 50 ML IVPB ONE ×3 (01:17→17:27)
[2018-10-07] MEDS: PIPERACILLIN/TAZOB 2.25 GM 2.25 GM in DEXTROSE 5%-WATER - 50 ML IVPB SCH ×3 (01:55→17:31)
[2018-10-07] MEDS: INSULIN SLIDING SCALE (NOVOLOG) 1 VIAL SQ SCH ×3 (06:32→17:37)
[2018-10-07 07:40] LABS: BASO % 0.2 % (0-2.0); HEMATOCRIT 32.1 % (32.4-45.2); HEMOGLOBIN 10.6 GM/dL (10.7-15.3); LYMPH % 2.9 % (8-40); MCH 27.3 pg (25.7-33.7); MCHC 32.9 g/dl (32.0-36.0); MEAN CELL VOLUME 83.1 fl (80-96); MEAN PLT VOLUME 7.8 fl (7.5-11.1); NEUT % 88.9 % (42.8-82.8); PLATELET COUNT 693 K/MM3 (134-434); RBC 3.87 M/mm3 (3.60-5.2); RDW 14.1 % (11.6-15.6); WHITE BLOOD COUNT 20.5 K/mm3 (4.0-10.0)
[2018-10-07 08:09] LABS: ALBUMIN 2.4 g/dl (3.4-5.0); BILIRUBIN,TOTAL 0.2 mg/dL (0.2-1); CALCIUM 9.4 mg/dL (8.5-10.1); CREATININE 2.3 mg/dL (0.55-1.3); POTASSIUM 3.7 mmol/L (3.5-5.1); TOT PROT 7.2 g/dl (6.4-8.2)
[2018-10-07] MEDS: CLOPIDOGREL BISULFATE 75 MG TABLET (FP) PO SCH (09:14)
[2018-10-07] MEDS: PANTOPRAZOLE 40 MG TABLET (FP) PO SCH (09:14)
[2018-10-07] MEDS: ESCITALOPRAM OXALATE 10 MG TABLET (FP) PO SCH (09:14)
[2018-10-07] MEDS: LISINOPRIL 5 MG TABLET (FP) PO SCH (09:15)
[2018-10-07] MEDS: metoPROLOL SUCCINATE 25 MG TAB.SR.24H (FP) PO SCH (09:15)
[2018-10-07] MEDS: HEPARIN NA (PORCINE) 5,000 UNITS/ML 1ML VIAL SQ SCH ×2 (09:15→21:39)
[2018-10-07] MEDS: methylPREDNISolone NA SUCC 40 MG/1 ML VIAL IVPUSH SCH (09:15)
[2018-10-07] MEDS: AZITHROMYCIN IVPB 500 MG/250 ML BAG IVPB SCH (09:16)
[2018-10-07] MEDS ORDERED: CEFTRIAXONE 1 GM in DEXTROSE 5%-WATER - 50 ML IVPB SCH (10:00)
--- NOTE | 2018-10-07 11:09 | PN ---
Progress Note (short form) - Note Progress Note: s: feels tired. no chest pain, edema, dizziness, lightheadedness Current Medications Albuterol/Ipratropium (Duoneb -) 1 amp NEB Q6H PRN PRN Reason: SHORTNESS OF BREATH Last Admin: 10/05/18 20:05 Dose: 1 amp Clopidogrel Bisulfate (Plavix -) 75 mg PO DAILY [facility] Last Admin: 10/07/18 09:14 Dose: 75 mg Escitalopram Oxalate (Lexapro -) 10 mg PO DAILY [facility] Last Admin: 10/07/18 09:14 Dose: 10 mg Heparin Sodium (Porcine) (Heparin -) 5,000 unit SQ BID [facility] Last Admin: 10/07/18 09:15 Dose: 5,000 unit Piperacillin Sod/Tazobactam (Sod 2.25 gm/ Dextrose) 50 mls @ 100 mls/hr IVPB Q8H-IV [facility]; Protocol Last Admin: 10/07/18 09:16 Dose: 100 mls/hr Azithromycin (Zithromax 500mg Ivpb (Pre-Docked)) 500 mg in 250 mls @ 250 mls/ hr IVPB DAILY [facility] Last Admin: 10/07/18 09:16 Dose: 250 mls/hr Insulin Aspart (Novolog Vial Sliding Scale -) 1 vial SQ TIDAC [facility]; Protocol Last Admin: 10/07/18 06:32 Dose: 6 units Lisinopril (Prinivil) 2.5 mg PO DAILY [facility] Last Admin: 10/07/18 09:15 Dose: 2.5 mg Methylprednisolone Sodium Succinate (Solu-Medrol -) 40 mg IVPUSH BID [facility] Last Admin: 10/07/18 09:15 Dose: 40 mg Metoprolol Succinate (Toprol Xl -) 25 mg PO DAILY [facility] Last Admin: 10/07/18 09:15 Dose: 25 mg Pantoprazole Sodium (Protonix -) 40 mg PO DAILY [facility] Last Admin: 10/07/18 09:14 Dose: 40 mg Rosuvastatin Calcium (Crestor -) 10 mg PO HS [facility] Last Admin: 10/06/18 22:56 Dose: 10 mg Vital Signs Period Temp Pulse Resp BP Sys/Vasquez Pulse Ox Last 24 Hr 97.4 F-99.0 F 60-128 18-20 139-160/80-112 94-99 Constitutional: Yes: No Distress, Calm Eyes: No: Sclera Icterus HENT: No: Nasal Congestion Cardiovascular: Yes: Regular Rate and Rhythm, JVD, S1, S2, Other (PMI non diplaced). No: Gallop, Murmur Respiratory: Yes: Rales (diffuse crackles) No: Accessory Muscle Use Gastrointestinal: Yes: Normal Bowel Sounds, Soft. No: Tenderness Musculoskeletal: Yes: Other (No kyphosis) Extremities: No: Cold, Cyanosis Edema: No Integumentary: No: Jaundice Neurological: Yes: Alert, Oriented (x3) Psychiatric: No: Agitated Assessment/Plan echo: LVSF appears mldly reduced, 40-45%. nl RV. mild MR. tele: sinus tachy, PVCs IMP: 1. Acute on chronic systolic CHF. no weights here--ordered. + mild JVD, ++ extensive crackles and wheezes on exam. CXR slightly improved bases, but extensive congestive changes persist (images reviewed: + extensive intra- alveolar infiltrates with cephalization pattern). BUN/Creat worsening, hyponatremia worsening--? overdiuresis (do not expect pt with EF 40-45% range to have diuresis-limiting low cardiac output). 2. Suspected underlying CAD--pt/family have declined cath due to MIKE risks (see dr welsh notes) 3. JACK on CKD, r/o cardiorenal syndrome 4. NSVT REC: -CT chest c/w PNA, Cr rising - holding diuretics, renal following -cont present metoprolol, Lisinopril at home doses (will not incr BB given diffuse wheezing) - sinus tachycardia noted on tele - likely in setting of PNA, cont current bb dose, holding diuretics -Cont tele monitoring for VT in light of NSVT run. K/Mag good--usual repletion targets -outpt cardio f/u
[2018-10-07 11:41] LABS: ANISOCYTOSIS 0; MACROCYTOSIS 0; PLATELET ESTIMATE INCREASED
--- NOTE | 2018-10-07 12:08 | PN ---
Progress Note (short form) - Note Progress Note: PULMONARY States breathing is better today. Less cough and wheezing. No fevers or chills. Vital Signs Period Temp Pulse Resp BP Sys/Vasquez Pulse Ox Last 24 Hr 97.4 F-99.0 F 60-128 18-20 139-160/80-112 94-99 Gen: NAD at rest Heart: RRR Lung: basilar rales Abd: soft, nontender Ext: no edema CBC, BMP 10/07/18 07:05 10/07/18 07:05 Active Medications Albuterol/Ipratropium (Duoneb -) 1 amp NEB Q6H PRN PRN Reason: SHORTNESS OF BREATH Last Admin: 10/05/18 20:05 Dose: 1 amp Clopidogrel Bisulfate (Plavix -) 75 mg PO DAILY [facility] Last Admin: 10/07/18 09:14 Dose: 75 mg Escitalopram Oxalate (Lexapro -) 10 mg PO DAILY [facility] Last Admin: 10/07/18 09:14 Dose: 10 mg Heparin Sodium (Porcine) (Heparin -) 5,000 unit SQ BID [facility] Last Admin: 10/07/18 09:15 Dose: 5,000 unit Piperacillin Sod/Tazobactam (Sod 2.25 gm/ Dextrose) 50 mls @ 100 mls/hr IVPB Q8H-IV [facility]; Protocol Last Admin: 10/07/18 09:16 Dose: 100 mls/hr Azithromycin (Zithromax 500mg Ivpb (Pre-Docked)) 500 mg in 250 mls @ 250 mls/ hr IVPB DAILY [facility] Last Admin: 10/07/18 09:16 Dose: 250 mls/hr Insulin Aspart (Novolog Vial Sliding Scale -) 1 vial SQ TIDAC [facility]; Protocol Last Admin: 10/07/18 11:22 Dose: 10 units Methylprednisolone Sodium Succinate (Solu-Medrol -) 40 mg IVPUSH BID [facility] Last Admin: 10/07/18 09:15 Dose: 40 mg Metoprolol Succinate (Toprol Xl -) 25 mg PO DAILY [facility] Last Admin: 10/07/18 09:15 Dose: 25 mg Pantoprazole Sodium (Protonix -) 40 mg PO DAILY [facility] Last Admin: 10/07/18 09:14 Dose: 40 mg Rosuvastatin Calcium (Crestor -) 10 mg PO HS [facility] Last Admin: 10/06/18 22:56 Dose: 10 mg A/P Acute on Chronic Systolic Heart Failure r/o Pneumonia Acute on Chronic Renal Failure HTN DM Hyperlipidemia h/o CVA - continue empiric antibiotics - decrease medrol to daily - inhaled bronchodilators - O2 to keep spO2 >90% - cardiac work up in progress
--- NOTE | 2018-10-07 12:36 | PN ---
Progress Note (short form) - Note Progress Note: Renal follow up for JACK/Fluid overload Pt seen and examined at the bedside awake and alert no acute complaints feels better today daughter at the bedside reports less wheezing no cp, abd pain + cough Vital Signs Temperature 98.7 F 10/07/18 10:00 Pulse Rate 128 H 10/07/18 10:00 Respiratory Rate 20 10/07/18 10:00 Blood Pressure 156/90 10/07/18 10:00 O2 Sat by Pulse Oximetry (%) 94 L 10/07/18 10:00 Intake & Output 10/04/18 10/05/18 10/06/18 10/07/18 23:59 23:59 23:59 23:59 Intake Total 772 243 9009 440 Balance 712 652 1086 440 Weight 68.13 kg NAD on NC O2 RRR + rales at bilateral lung bases soft NT/ND no LE or sacral edema CBC, BMP 10/07/18 07:05 10/07/18 07:05 Current Medications Albuterol/Ipratropium (Duoneb -) 1 amp NEB Q6H PRN PRN Reason: SHORTNESS OF BREATH Last Admin: 10/05/18 20:05 Dose: 1 amp Clopidogrel Bisulfate (Plavix -) 75 mg PO DAILY [facility] Last Admin: 10/07/18 09:14 Dose: 75 mg Escitalopram Oxalate (Lexapro -) 10 mg PO DAILY [facility] Last Admin: 10/07/18 09:14 Dose: 10 mg Heparin Sodium (Porcine) (Heparin -) 5,000 unit SQ BID [facility] Last Admin: 10/07/18 09:15 Dose: 5,000 unit Piperacillin Sod/Tazobactam (Sod 2.25 gm/ Dextrose) 50 mls @ 100 mls/hr IVPB Q8H-IV [facility]; Protocol Last Admin: 10/07/18 09:16 Dose: 100 mls/hr Azithromycin (Zithromax 500mg Ivpb (Pre-Docked)) 500 mg in 250 mls @ 250 mls/ hr IVPB DAILY [facility] Last Admin: 10/07/18 09:16 Dose: 250 mls/hr Insulin Aspart (Novolog Vial Sliding Scale -) 1 vial SQ TIDAC [facility]; Protocol Last Admin: 10/07/18 11:22 Dose: 10 units Methylprednisolone Sodium Succinate (Solu-Medrol -) 40 mg IVPUSH DAILY [facility] Metoprolol Succinate (Toprol Xl -) 25 mg PO DAILY [facility] Last Admin: 10/07/18 09:15 Dose: 25 mg Pantoprazole Sodium (Protonix -) 40 mg PO DAILY [facility] Last Admin: 10/07/18 09:14 Dose: 40 mg Rosuvastatin Calcium (Crestor -) 10 mg PO HS [facility] Last Admin: 10/06/18 22:56 Dose: 10 mg 88 yr old woman with a PMH of severe systolic CHF (on O2 3L NC at home, never required bipap or intubation), HTN, HLD, DM and CKD (baseline Cr ~1.6), CAD, and CVA who was sent in by Dr. Rayo Alberts for CHF exacerbation. 88 year old woman with hx of CKD stage 3 (baseline Cr 1.4-1.6), CHF, HTN, HLD, DM, CAD who presented with sob and admitted for CHF exacerbation witih JACK on CKD. #JACK on CKD r/o Cardio-renal syndrome vs. ATN #Hyponatremia (hypervolemic) #CHF exacerbation #Hypertension #CAD #DM Renal function and sodium levels stable holding diuretics as BUN/Cr up trending with lasix in setting of PNA hold ACEi for now Fluid restriction of 1L daily for now given low Na level Low salt diet Continue empiric antibiotics and follow up cultures supportive care Cardiology following Thank you Javon Cota DO
--- NOTE | 2018-10-07 13:28 | PN ---
Progress Note, Physician History of Present Illness: AWAKE, ALERT IN BED REPORTS LESS COUGH NO C/O CHEST PAIN / DYSPNEA NO FEVER/ CHILLS - Current Medication List Current Medications: Active Medications Albuterol/Ipratropium (Duoneb -) 1 amp NEB Q6H PRN PRN Reason: SHORTNESS OF BREATH Last Admin: 10/05/18 20:05 Dose: 1 amp Clopidogrel Bisulfate (Plavix -) 75 mg PO DAILY [facility] Last Admin: 10/07/18 09:14 Dose: 75 mg Escitalopram Oxalate (Lexapro -) 10 mg PO DAILY [facility] Last Admin: 10/07/18 09:14 Dose: 10 mg Heparin Sodium (Porcine) (Heparin -) 5,000 unit SQ BID [facility] Last Admin: 10/07/18 09:15 Dose: 5,000 unit Piperacillin Sod/Tazobactam (Sod 2.25 gm/ Dextrose) 50 mls @ 100 mls/hr IVPB Q8H-IV [facility]; Protocol Last Admin: 10/07/18 09:16 Dose: 100 mls/hr Azithromycin (Zithromax 500mg Ivpb (Pre-Docked)) 500 mg in 250 mls @ 250 mls/ hr IVPB DAILY [facility] Last Admin: 10/07/18 09:16 Dose: 250 mls/hr Insulin Aspart (Novolog Vial Sliding Scale -) 1 vial SQ TIDAC [facility]; Protocol Last Admin: 10/07/18 11:22 Dose: 10 units Methylprednisolone Sodium Succinate (Solu-Medrol -) 40 mg IVPUSH DAILY [facility] Metoprolol Succinate (Toprol Xl -) 25 mg PO DAILY [facility] Last Admin: 10/07/18 09:15 Dose: 25 mg Pantoprazole Sodium (Protonix -) 40 mg PO DAILY [facility] Last Admin: 10/07/18 09:14 Dose: 40 mg Rosuvastatin Calcium (Crestor -) 10 mg PO HS [facility] Last Admin: 10/06/18 22:56 Dose: 10 mg - Objective Vital Signs: Vital Signs Temperature 98.7 F 10/07/18 10:00 Pulse Rate 128 H 10/07/18 10:00 Respiratory Rate 20 10/07/18 10:00 Blood Pressure 156/90 10/07/18 10:00 O2 Sat by Pulse Oximetry (%) 94 L 10/07/18 10:00 Constitutional: Yes: No Distress, Obese Cardiovascular: Yes: Regular Rate and Rhythm, S1, S2 Respiratory: Yes: Rhonchi, Other (+ CREPITATIONS AT BASES) Gastrointestinal: Yes: Normal Bowel Sounds, Soft, Abdomen, Obese. No: Tenderness Edema: LLE: 1+, RLE: 1+ Labs: CBC, BMP 10/07/18 07:05 10/07/18 07:05 Assessment/Plan CHF R/O PNEUMONIA HYPONATREMIA CKD DM AWAIT C/S CONTINUE ZITHROMAX/ ZOSYN
[2018-10-07] MEDS: ALBUTEROL SO4 2.5/IPRATROPIUM 0.5 INH SOL 3 ML VIAL.NEB. NEB PRN (19:40)
[2018-10-07] MEDS: ROSUVASTATIN CA 10 MG TABLET (FP) PO SCH (21:39)
--- NOTE | 2018-10-07 22:28 | PN ---
Progress Note, Physician History of Present Illness: No new complaints - Current Medication List Current Medications: Active Medications Albuterol/Ipratropium (Duoneb -) 1 amp NEB Q6H PRN PRN Reason: SHORTNESS OF BREATH Last Admin: 10/07/18 19:40 Dose: 1 amp Clopidogrel Bisulfate (Plavix -) 75 mg PO DAILY [facility] Last Admin: 10/07/18 09:14 Dose: 75 mg Escitalopram Oxalate (Lexapro -) 10 mg PO DAILY [facility] Last Admin: 10/07/18 09:14 Dose: 10 mg Heparin Sodium (Porcine) (Heparin -) 5,000 unit SQ BID [facility] Last Admin: 10/07/18 21:39 Dose: 5,000 unit Piperacillin Sod/Tazobactam (Sod 2.25 gm/ Dextrose) 50 mls @ 100 mls/hr IVPB Q8H-IV [facility]; Protocol Last Admin: 10/07/18 17:31 Dose: 100 mls/hr Azithromycin (Zithromax 500mg Ivpb (Pre-Docked)) 500 mg in 250 mls @ 250 mls/ hr IVPB DAILY [facility] Last Admin: 10/07/18 09:16 Dose: 250 mls/hr Insulin Aspart (Novolog Vial Sliding Scale -) 1 vial SQ TIDAC [facility]; Protocol Last Admin: 10/07/18 17:37 Dose: 10 units Methylprednisolone Sodium Succinate (Solu-Medrol -) 40 mg IVPUSH DAILY [facility] Metoprolol Succinate (Toprol Xl -) 25 mg PO DAILY [facility] Last Admin: 10/07/18 09:15 Dose: 25 mg Pantoprazole Sodium (Protonix -) 40 mg PO DAILY [facility] Last Admin: 10/07/18 09:14 Dose: 40 mg Rosuvastatin Calcium (Crestor -) 10 mg PO HS [facility] Last Admin: 10/07/18 21:39 Dose: 10 mg - Objective Vital Signs: Vital Signs Temperature 97.8 F 10/07/18 21:00 Pulse Rate 114 H 10/07/18 21:00 Respiratory Rate 18 10/07/18 21:00 Blood Pressure 153/68 10/07/18 21:00 O2 Sat by Pulse Oximetry (%) 97 10/07/18 21:00 Neck: Yes: WNL, Supple Cardiovascular: Yes: WNL, Regular Rate and Rhythm Respiratory: Yes: Diminished Gastrointestinal: Yes: WNL, Normal Bowel Sounds, Soft Edema: No Labs: CBC, BMP 10/07/18 07:05 10/07/18 07:05 Problem List - Problems (1) Pneumonia Assessment/Plan: IV antibxs Cont nebulizers/IV steroids Increased WBC could be secondary to steroids Code(s): J18.9 - PNEUMONIA, UNSPECIFIED ORGANISM (2) Acute on chronic systolic (congestive) heart failure Assessment/Plan: Lasix on hold due to increasing creatinine and decreasing sodium As per cardio Code(s): I50.23 - ACUTE ON CHRONIC SYSTOLIC (CONGESTIVE) HEART FAILURE (3) CKD (chronic kidney disease) Assessment/Plan: Renal consult Code(s): N18.9 - CHRONIC KIDNEY DISEASE, UNSPECIFIED (4) HTN (hypertension) Assessment/Plan: BP stable Cont metoprolol/lisinopril Code(s): I10 - ESSENTIAL (PRIMARY) HYPERTENSION (5) HLD (hyperlipidemia) Assessment/Plan: Cont crestor Code(s): E78.5 - HYPERLIPIDEMIA, UNSPECIFIED (6) Osteoarthritis Code(s): M19.90 - UNSPECIFIED OSTEOARTHRITIS, UNSPECIFIED SITE Qualifiers: Osteoarthritis location: knee Osteoarthritis type: unspecified Laterality : right Qualified Code(s): M17.11 - Unilateral primary osteoarthritis, right knee (7) CAD (coronary artery disease) Assessment/Plan: Cont plavix Code(s): I25.10 - ATHSCL HEART DISEASE OF [place] CORONARY ARTERY W/O ANG PCTRS
[2018-10-08] MEDS ORDERED: PIPERACILLIN/TAZOBACTAM 2.25 GM VIAL IVPB ONE ×3 (01:41→16:25)
[2018-10-08] MEDS ORDERED: DEXTROSE 5%-WATER - 50 ML IVPB ONE ×3 (01:42→16:25)
[2018-10-08] MEDS: PIPERACILLIN/TAZOB 2.25 GM 2.25 GM in DEXTROSE 5%-WATER - 50 ML IVPB SCH ×3 (02:05→17:10)
[2018-10-08] MEDS: ALBUTEROL SO4 2.5/IPRATROPIUM 0.5 INH SOL 3 ML VIAL.NEB. NEB PRN (03:30)
[2018-10-08] MEDS: INSULIN SLIDING SCALE (NOVOLOG) 1 VIAL SQ SCH ×3 (06:45→16:36)
[2018-10-08 07:28] LABS: BASO % 0.1 % (0-2.0); HEMATOCRIT 30.9 % (32.4-45.2); HEMOGLOBIN 10.2 GM/dL (10.7-15.3); LYMPH % 6.2 % (8-40); MCH 27.2 pg (25.7-33.7); MCHC 32.9 g/dl (32.0-36.0); MEAN CELL VOLUME 82.7 fl (80-96); MEAN PLT VOLUME 7.5 fl (7.5-11.1); NEUT % 77.7 % (42.8-82.8); PLATELET COUNT 587 K/MM3 (134-434); RBC 3.74 M/mm3 (3.60-5.2); WHITE BLOOD COUNT 19.5 K/mm3 (4.0-10.0)
[2018-10-08 07:53] LABS: CALCIUM 8.9 mg/dL (8.5-10.1); CREATININE 2.5 mg/dL (0.55-1.3); MAGNESIUM 1.9 mg/dL (1.8-2.4); PHOSPHOROUS 4.1 mg/dL (2.5-4.9); POTASSIUM 4.1 mmol/L (3.5-5.1)
[2018-10-08] MEDS: PANTOPRAZOLE 40 MG TABLET (FP) PO SCH (09:17)
[2018-10-08] MEDS: ESCITALOPRAM OXALATE 10 MG TABLET (FP) PO SCH (09:17)
[2018-10-08] MEDS: HEPARIN NA (PORCINE) 5,000 UNITS/ML 1ML VIAL SQ SCH ×2 (09:17→21:41)
[2018-10-08] MEDS: CLOPIDOGREL BISULFATE 75 MG TABLET (FP) PO SCH (09:17)
[2018-10-08] MEDS: metoPROLOL SUCCINATE 25 MG TAB.SR.24H (FP) PO SCH (09:17)
[2018-10-08] MEDS: AZITHROMYCIN IVPB 500 MG/250 ML BAG IVPB SCH (09:18)
[2018-10-08] MEDS ORDERED: methylPREDNISolone NA SUCC 40 MG/1 ML VIAL IVPUSH SCH (10:00)
--- NOTE | 2018-10-08 10:59 | PN ---
Progress Note (short form) - Note Progress Note: s: feels tired. no chest pain, edema, dizziness, lightheadedness Current Medications Albuterol/Ipratropium (Duoneb -) 1 amp NEB Q6H PRN PRN Reason: SHORTNESS OF BREATH Last Admin: 10/08/18 03:30 Dose: 1 amp Clopidogrel Bisulfate (Plavix -) 75 mg PO DAILY [facility] Last Admin: 10/08/18 09:17 Dose: 75 mg Escitalopram Oxalate (Lexapro -) 10 mg PO DAILY [facility] Last Admin: 10/08/18 09:17 Dose: 10 mg Heparin Sodium (Porcine) (Heparin -) 5,000 unit SQ BID [facility] Last Admin: 10/08/18 09:17 Dose: 5,000 unit Piperacillin Sod/Tazobactam (Sod 2.25 gm/ Dextrose) 50 mls @ 100 mls/hr IVPB Q8H-IV [facility]; Protocol Last Admin: 10/08/18 09:18 Dose: 100 mls/hr Azithromycin (Zithromax 500mg Ivpb (Pre-Docked)) 500 mg in 250 mls @ 250 mls/ hr IVPB DAILY [facility] Last Admin: 10/08/18 09:18 Dose: 250 mls/hr Insulin Aspart (Novolog Vial Sliding Scale -) 1 vial SQ TIDAC [facility]; Protocol Last Admin: 10/08/18 06:45 Dose: 4 units Methylprednisolone Sodium Succinate (Solu-Medrol -) 40 mg IVPUSH DAILY [facility] Last Admin: 10/08/18 09:17 Dose: 40 mg Metoprolol Succinate (Toprol Xl -) 25 mg PO DAILY [facility] Last Admin: 10/08/18 09:17 Dose: 25 mg Pantoprazole Sodium (Protonix -) 40 mg PO DAILY [facility] Last Admin: 10/08/18 09:17 Dose: 40 mg Rosuvastatin Calcium (Crestor -) 10 mg PO HS [facility] Last Admin: 10/07/18 21:39 Dose: 10 mg Vital Signs Period Temp Pulse Resp BP Sys/Vasquez Pulse Ox Last 24 Hr 97.8 F-98.4 F 109-120 18-20 144-164/67-94 97 Constitutional: Yes: No Distress, Calm Eyes: No: Sclera Icterus HENT: No: Nasal Congestion Cardiovascular: Yes: Regular Rate and Rhythm, JVD, S1, S2, Other (PMI non diplaced). No: Gallop, Murmur Respiratory: Yes: Rales (diffuse crackles) No: Accessory Muscle Use Gastrointestinal: Yes: Normal Bowel Sounds, Soft. No: Tenderness Musculoskeletal: Yes: Other (No kyphosis) Extremities: No: Cold, Cyanosis Edema: No Integumentary: No: Jaundice Neurological: Yes: Alert, Oriented (x3) Psychiatric: No: Agitated Assessment/Plan echo: LVSF appears mldly reduced, 40-45%. nl RV. mild MR. tele: sinus tachy IMP: 1. Acute on chronic systolic CHF. no weights here--ordered. + mild JVD, ++ extensive crackles and wheezes on exam. CXR slightly improved bases, but extensive congestive changes persist (images reviewed: + extensive intra- alveolar infiltrates with cephalization pattern). BUN/Creat worsening, hyponatremia worsening--? overdiuresis (do not expect pt with EF 40-45% range to have diuresis-limiting low cardiac output). 2. Suspected underlying CAD--pt/family have declined cath due to MIKE risks (see dr welsh notes) 3. JACK on CKD, r/o cardiorenal syndrome 4. NSVT REC: -CT chest c/w PNA, Cr rising - holding diuretics, renal following -cont present metoprolol, Lisinopril at home doses (will not incr BB given diffuse wheezing) - sinus tachycardia noted on tele - likely in setting of PNA, cont current bb dose, holding diuretics -Cont tele monitoring for VT in light of NSVT run. K/Mag good--usual repletion targets -outpt cardio f/u
--- NOTE | 2018-10-08 11:15 | PN ---
Progress Note, Physician History of Present Illness: pulmonary awake,c/o cough,increased congestion ,sob. - Current Medication List Current Medications: Active Medications Albuterol/Ipratropium (Duoneb -) 1 amp NEB Q6H PRN PRN Reason: SHORTNESS OF BREATH Last Admin: 10/08/18 03:30 Dose: 1 amp Clopidogrel Bisulfate (Plavix -) 75 mg PO DAILY [facility] Last Admin: 10/08/18 09:17 Dose: 75 mg Escitalopram Oxalate (Lexapro -) 10 mg PO DAILY [facility] Last Admin: 10/08/18 09:17 Dose: 10 mg Heparin Sodium (Porcine) (Heparin -) 5,000 unit SQ BID [facility] Last Admin: 10/08/18 09:17 Dose: 5,000 unit Piperacillin Sod/Tazobactam (Sod 2.25 gm/ Dextrose) 50 mls @ 100 mls/hr IVPB Q8H-IV [facility]; Protocol Last Admin: 10/08/18 09:18 Dose: 100 mls/hr Azithromycin (Zithromax 500mg Ivpb (Pre-Docked)) 500 mg in 250 mls @ 250 mls/ hr IVPB DAILY [facility] Last Admin: 10/08/18 09:18 Dose: 250 mls/hr Insulin Aspart (Novolog Vial Sliding Scale -) 1 vial SQ TIDAC [facility]; Protocol Last Admin: 10/08/18 06:45 Dose: 4 units Methylprednisolone Sodium Succinate (Solu-Medrol -) 40 mg IVPUSH DAILY [facility] Last Admin: 10/08/18 09:17 Dose: 40 mg Metoprolol Succinate (Toprol Xl -) 25 mg PO DAILY [facility] Last Admin: 10/08/18 09:17 Dose: 25 mg Pantoprazole Sodium (Protonix -) 40 mg PO DAILY [facility] Last Admin: 10/08/18 09:17 Dose: 40 mg Rosuvastatin Calcium (Crestor -) 10 mg PO HS [facility] Last Admin: 10/07/18 21:39 Dose: 10 mg - Objective Vital Signs: Vital Signs Temperature 98.4 F 10/08/18 06:41 Pulse Rate 120 H 10/08/18 06:41 Respiratory Rate 18 10/08/18 06:41 Blood Pressure 155/92 10/08/18 06:41 O2 Sat by Pulse Oximetry (%) 97 10/07/18 21:00 Constitutional: Yes: Well Nourished, Calm Eyes: Yes: Occular Prosthesis HENT: Yes: WNL Neck: Yes: WNL Cardiovascular: Yes: Tachycardia, S1, S2 Respiratory: Yes: Rales, Wheezes (bilateral rales and wheezes) Gastrointestinal: Yes: Normal Bowel Sounds, Soft Extremities: Yes: WNL Edema: No Labs: CBC, BMP 10/08/18 07:05 10/08/18 07:05 Assessment/Plan IMP DYSPNEA ACUTE ON CHRONIC CHF ACUTE ON CHRONIC KIDNEY DISEASE ? ASHD HTN DM HLD H/O CVA ? PNEUMONIA HYPONATREMIA PLAN IV LASIX DAILY WT SUPPLEMENTAL O2 INHALED BRONCHODILATORS PRN MONITOR LYTES,RENAL FUNCTION,NA F/U CHEST X-RAY TODAY STEROIDS ABX DR RENEE
[2018-10-08] MEDS: methylPREDNISolone NA SUCC 40 MG/1 ML VIAL IVPUSH SCH ×2 (11:34→23:30)
[2018-10-08] MEDS: guaiFENesin 200 MG/10 ML 10 ML UNIT-DOSE CUPS PO PRN ×2 (11:54→17:10)
[2018-10-08 12:52] LABS: ANISOCYTOSIS 1+; MACROCYTOSIS 0; PLATELET ESTIMATE INCREASED
--- NOTE | 2018-10-08 14:20 | PN ---
Progress Note (short form) - Note Progress Note: Renal follow up for JACK/Fluid overload Pt seen and examined at the bedside awake and alert daughter at the bedside reports she is still short of breath no chest pain, abd pain, N/V/D making urine no fevers Vital Signs Temperature 98.4 F 10/08/18 10:00 Pulse Rate 120 H 10/08/18 10:00 Respiratory Rate 18 10/08/18 10:00 Blood Pressure 151/87 10/08/18 10:00 O2 Sat by Pulse Oximetry (%) 95 10/08/18 10:00 Intake & Output 10/05/18 10/06/18 10/07/18 10/08/18 23:59 23:59 23:59 23:59 Intake Total 120 1080 1410 520 Balance 120 1080 1410 520 Weight 72.348 kg NAD on NC O2 RRR + rales at bilateral lung bases soft NT/ND no LE or sacral edema CBC, BMP 10/08/18 07:05 10/08/18 07:05 Current Medications Albuterol/Ipratropium (Duoneb -) 1 amp NEB Q6H PRN PRN Reason: SHORTNESS OF BREATH Last Admin: 10/08/18 03:30 Dose: 1 amp Clopidogrel Bisulfate (Plavix -) 75 mg PO DAILY [facility] Last Admin: 10/08/18 09:17 Dose: 75 mg Escitalopram Oxalate (Lexapro -) 10 mg PO DAILY [facility] Last Admin: 10/08/18 09:17 Dose: 10 mg Guaifenesin (Robitussin -) 10 ml PO Q6H PRN PRN Reason: COUGH Last Admin: 10/08/18 11:54 Dose: 10 ml Heparin Sodium (Porcine) (Heparin -) 5,000 unit SQ BID [facility] Last Admin: 10/08/18 09:17 Dose: 5,000 unit Piperacillin Sod/Tazobactam (Sod 2.25 gm/ Dextrose) 50 mls @ 100 mls/hr IVPB Q8H-IV [facility]; Protocol Last Admin: 10/08/18 09:18 Dose: 100 mls/hr Azithromycin (Zithromax 500mg Ivpb (Pre-Docked)) 500 mg in 250 mls @ 250 mls/ hr IVPB DAILY [facility] Last Admin: 10/08/18 09:18 Dose: 250 mls/hr Insulin Aspart (Novolog Vial Sliding Scale -) 1 vial SQ TIDAC [facility]; Protocol Last Admin: 10/08/18 11:54 Dose: 8 units Methylprednisolone Sodium Succinate (Solu-Medrol -) 40 mg IVPUSH Q12H [facility] Last Admin: 10/08/18 11:34 Dose: Not Given Metoprolol Succinate (Toprol Xl -) 25 mg PO DAILY [facility] Last Admin: 10/08/18 09:17 Dose: 25 mg Pantoprazole Sodium (Protonix -) 40 mg PO DAILY [facility] Last Admin: 10/08/18 09:17 Dose: 40 mg Rosuvastatin Calcium (Crestor -) 10 mg PO HS [facility] Last Admin: 10/07/18 21:39 Dose: 10 mg 88 yr old woman with a PMH of severe systolic CHF (on O2 3L NC at home, never required bipap or intubation), HTN, HLD, DM and CKD (baseline Cr ~1.6), CAD, and CVA who was sent in by Dr. Rayo Alberts for CHF exacerbation. 88 year old woman with hx of CKD stage 3 (baseline Cr 1.4-1.6), CHF, HTN, HLD, DM, CAD who presented with sob and admitted for CHF exacerbation witih JACK on CKD. #JACK on CKD r/o Cardio-renal syndrome vs. ATN #Hyponatremia (hypervolemic) #CHF exacerbation #Hypertension #CAD #DM Renal function w/o improvement thus far holding standing diuretics as BUN/Cr up trending with lasix in setting of PNA hold PRISCILLA for now as BUN/Cr significantly above baseline Fluid restriction of 1L daily for now given low Na level Can give PRN IVP Laisx if SOB worsens however CXR and CT chest more indicative of PNA Low salt diet Continue empiric antibiotics and follow up cultures supportive care Cardiology following Thank you Javon Cota DO
[2018-10-08] MEDS: ROSUVASTATIN CA 10 MG TABLET (FP) PO SCH (21:40)
--- NOTE | 2018-10-08 22:40 | PN ---
Progress Note, Physician - Current Medication List Current Medications: Active Medications Albuterol/Ipratropium (Duoneb -) 1 amp NEB Q6H PRN PRN Reason: SHORTNESS OF BREATH Last Admin: 10/08/18 03:30 Dose: 1 amp Clopidogrel Bisulfate (Plavix -) 75 mg PO DAILY [facility] Last Admin: 10/08/18 09:17 Dose: 75 mg Escitalopram Oxalate (Lexapro -) 10 mg PO DAILY [facility] Last Admin: 10/08/18 09:17 Dose: 10 mg Guaifenesin (Robitussin -) 10 ml PO Q6H PRN PRN Reason: COUGH Last Admin: 10/08/18 17:10 Dose: 10 ml Heparin Sodium (Porcine) (Heparin -) 5,000 unit SQ BID [facility] Last Admin: 10/08/18 21:41 Dose: 5,000 unit Piperacillin Sod/Tazobactam (Sod 2.25 gm/ Dextrose) 50 mls @ 100 mls/hr IVPB Q8H-IV [facility]; Protocol Last Admin: 10/08/18 17:10 Dose: 100 mls/hr Azithromycin (Zithromax 500mg Ivpb (Pre-Docked)) 500 mg in 250 mls @ 250 mls/ hr IVPB DAILY [facility] Last Admin: 10/08/18 09:18 Dose: 250 mls/hr Insulin Aspart (Novolog Vial Sliding Scale -) 1 vial SQ TIDAC [facility]; Protocol Last Admin: 10/08/18 16:36 Dose: 8 units Methylprednisolone Sodium Succinate (Solu-Medrol -) 40 mg IVPUSH Q12H [facility] Last Admin: 10/08/18 11:34 Dose: Not Given Metoprolol Succinate (Toprol Xl -) 25 mg PO DAILY [facility] Last Admin: 10/08/18 09:17 Dose: 25 mg Pantoprazole Sodium (Protonix -) 40 mg PO DAILY [facility] Last Admin: 10/08/18 09:17 Dose: 40 mg Rosuvastatin Calcium (Crestor -) 10 mg PO HS [facility] Last Admin: 10/08/18 21:40 Dose: 10 mg - Objective Vital Signs: Vital Signs Temperature 98.2 F 10/08/18 18:00 Pulse Rate 106 H 10/08/18 18:00 Respiratory Rate 18 10/08/18 18:00 Blood Pressure 174/69 H 06/05/19 18:00 O2 Sat by Pulse Oximetry (%) 95 10/08/18 10:00 Cardiovascular: Yes: WNL, Regular Rate and Rhythm Respiratory: Yes: WNL, CTA Bilaterally Gastrointestinal: Yes: WNL, Soft Labs: CBC, BMP 10/08/18 07:05 10/08/18 07:05 Problem List - Problems (1) Pneumonia Code(s): J18.9 - PNEUMONIA, UNSPECIFIED ORGANISM (2) Acute on chronic systolic (congestive) heart failure Code(s): I50.23 - ACUTE ON CHRONIC SYSTOLIC (CONGESTIVE) HEART FAILURE (3) CKD (chronic kidney disease) Code(s): N18.9 - CHRONIC KIDNEY DISEASE, UNSPECIFIED (4) HTN (hypertension) Code(s): I10 - ESSENTIAL (PRIMARY) HYPERTENSION (5) HLD (hyperlipidemia) Code(s): E78.5 - HYPERLIPIDEMIA, UNSPECIFIED (6) Osteoarthritis Code(s): M19.90 - UNSPECIFIED OSTEOARTHRITIS, UNSPECIFIED SITE Qualifiers: Osteoarthritis location: knee Osteoarthritis type: unspecified Laterality : right Qualified Code(s): M17.11 - Unilateral primary osteoarthritis, right knee (7) CAD (coronary artery disease) Code(s): I25.10 - ATHSCL HEART DISEASE OF [place] CORONARY ARTERY W/O ANG PCTRS
[2018-10-09] MEDS: ALBUTEROL SO4 2.5/IPRATROPIUM 0.5 INH SOL 3 ML VIAL.NEB. NEB PRN (00:40)
[2018-10-09] MEDS ORDERED: DEXTROSE 5%-WATER - 50 ML IVPB ONE ×3 (02:24→16:03)
[2018-10-09] MEDS ORDERED: PIPERACILLIN/TAZOBACTAM 2.25 GM VIAL IVPB ONE ×3 (02:24→16:03)
[2018-10-09] MEDS: PIPERACILLIN/TAZOB 2.25 GM 2.25 GM in DEXTROSE 5%-WATER - 50 ML IVPB SCH ×3 (02:42→17:07)
[2018-10-09] MEDS ORDERED: FUROSEMIDE 40 MG/4 ML INJECTABLE VIAL ONE (02:51)
[2018-10-09] MEDS ORDERED: FUROSEMIDE 40 MG/4 ML INJECTABLE VIAL IVPUSH ONE (03:00)
[2018-10-09 04:22] LABS: ARTERIAL BLD GAS O2 SATURATION 94.6 % (95-98); ARTERIAL BLOOD GAS BASE EXCESS -0.3 meq/l (-2-2); ARTERIAL BLOOD GAS PCO2 47.4 mmHg (35-45); ARTERIAL BLOOD GAS PO2 71.9 mmHg (80-105); ARTERIAL BLOOD GAS pH 7.34 (7.35-7.45)
[2018-10-09 04:29] LABS: ALLENS TEST POSITIVE
[2018-10-09] MEDS: INSULIN SLIDING SCALE (NOVOLOG) 1 VIAL SQ SCH ×3 (06:03→17:11)
[2018-10-09 08:03] LABS: HEMATOCRIT 30.2 % (32.4-45.2); LYMPH % 4.5 % (8-40); MCH 27.1 pg (25.7-33.7); MCHC 33.1 g/dl (32.0-36.0); MEAN CELL VOLUME 81.9 fl (80-96); MEAN PLT VOLUME 7.7 fl (7.5-11.1); MONO % 9.1 % (3.8-10.2); NEUT % 86.4 % (42.8-82.8); PLATELET COUNT 592 K/MM3 (134-434); RBC 3.68 M/mm3 (3.60-5.2); RDW 14.1 % (11.6-15.6); WHITE BLOOD COUNT 18.5 K/mm3 (4.0-10.0)
[2018-10-09 08:31] LABS: ALBUMIN 2.4 g/dl (3.4-5.0); BILIRUBIN,TOTAL 0.3 mg/dL (0.2-1); CALCIUM 9.3 mg/dL (8.5-10.1); CREATININE 2.4 mg/dL (0.55-1.3); POTASSIUM 4.4 mmol/L (3.5-5.1); TOT PROT 6.9 g/dl (6.4-8.2)
[2018-10-09] MEDS: AZITHROMYCIN IVPB 500 MG/250 ML BAG IVPB SCH (10:25)
[2018-10-09] MEDS: ESCITALOPRAM OXALATE 10 MG TABLET (FP) PO SCH (10:26)
[2018-10-09] MEDS: guaiFENesin 200 MG/10 ML 10 ML UNIT-DOSE CUPS PO PRN (10:26)
[2018-10-09] MEDS: HEPARIN NA (PORCINE) 5,000 UNITS/ML 1ML VIAL SQ SCH (10:26)
[2018-10-09] MEDS: metoPROLOL SUCCINATE 25 MG TAB.SR.24H (FP) PO SCH (10:26)
[2018-10-09] MEDS: PANTOPRAZOLE 40 MG TABLET (FP) PO SCH (10:26)
[2018-10-09] MEDS: CLOPIDOGREL BISULFATE 75 MG TABLET (FP) PO SCH (10:26)
[2018-10-09 10:31] LABS: ANISOCYTOSIS 0; MACROCYTOSIS 0; PLATELET ESTIMATE INCREASED
[2018-10-09] MEDS: methylPREDNISolone NA SUCC 40 MG/1 ML VIAL IVPUSH SCH (11:57)
--- NOTE | 2018-10-09 12:00 | PN ---
Progress Note (short form) - Note Progress Note: s: feels tired. no chest pain, edema, dizziness, lightheadedness Current Medications Generic Name Dose Route Start Last Admin Trade Name Freq PRN Reason Stop Dose Admin Albuterol/Ipratropium 1 amp 10/02/18 16:51 10/09/18 00:40 Duoneb - NEB 1 amp Q6H PRN Administration SHORTNESS OF BREATH Clopidogrel Bisulfate 75 mg 10/02/18 16:45 10/09/18 10:26 Plavix - PO 75 mg DAILY [facility] Administration Escitalopram Oxalate 10 mg 10/02/18 17:00 10/09/18 10:26 Lexapro - PO 10 mg DAILY [facility] Administration Guaifenesin 10 ml 10/08/18 11:16 10/09/18 10:26 Robitussin - PO 10 ml Q6H PRN Administration COUGH Heparin Sodium (Porcine) 5,000 unit 10/02/18 22:00 10/09/18 10:26 Heparin - SQ 5,000 unit BID [facility] Administration Piperacillin Sod/Tazobactam 50 mls @ 100 mls/hr 10/06/18 15:30 10/09/18 10:25 Sod 2.25 gm/ Dextrose IVPB 100 mls/hr Q8H-IV [facility] Administration Protocol Azithromycin 500 mg in 250 mls @ 250 mls/hr 10/07/18 10:00 10/09/18 10:25 Zithromax 500mg Ivpb (Pre-Docked) IVPB 250 mls/hr DAILY [facility] Administration Insulin Aspart 1 vial 10/04/18 17:15 10/09/18 06:03 Novolog Vial Sliding Scale - SQ 6 units TIDAC [facility] Administration Protocol Methylprednisolone Sodium Succinate 40 mg 10/08/18 11:30 10/08/18 23:30 Solu-Medrol - IVPUSH 40 mg Q12H [facility] Administration Metoprolol Succinate 50 mg 10/09/18 09:21 10/09/18 10:26 Toprol Xl - PO 50 mg DAILY [facility] Administration Pantoprazole Sodium 40 mg 10/04/18 17:00 10/09/18 10:26 Protonix - PO 40 mg DAILY [facility] Administration Rosuvastatin Calcium 10 mg 10/02/18 22:00 10/08/18 21:40 Crestor - PO 10 mg HS [facility] Administration Vital Signs Period Temp Pulse Resp BP Sys/Vasquez Pulse Ox Last 24 Hr 98.2 F-98.9 F 106-126 18-32 155-180/69-106 97 Constitutional: Yes: No Distress, Calm Eyes: No: Sclera Icterus HENT: No: Nasal Congestion Cardiovascular: Yes: Regular Rate and Rhythm, JVD, S1, S2, Other (PMI non diplaced). No: Gallop, Murmur Respiratory: Yes: Rales (diffuse crackles) No: Accessory Muscle Use Gastrointestinal: Yes: Normal Bowel Sounds, Soft. No: Tenderness Extremities: No: Cold, Cyanosis Edema: No Integumentary: No: Jaundice Neurological: Yes: Alert, Oriented (x3) Psychiatric: No: Agitated CBC, BMP 10/09/18 07:20 10/09/18 07:25 echo: LVSF appears mldly reduced, 40-45%. nl RV. mild MR. tele: sinus tachy, occ pvcs Assessment/Plan Acute on chronic systolic CHF: -after diuresis BUN/Creat worsening, hyponatremia worsening. Thus lasix stopped as it does not appear she is vol overloaded. More likely her pulm findings are pna related. -cont bb. marjan held for jack. Suspected underlying CAD: -no signs acs -pt/family have declined cath due to MIKE risks (see prior dr welsh notes) JACK on CKD: -likely due to diuresis, cont to hold lasix and monitor cr trend htn: -elevated here. -marjan held due to jack. will increase bb. NSVT: -cont bb -sinus tachycardia noted on tele - likely in setting of PNA
[2018-10-09] MEDS ORDERED: ALBUTEROL SO4 0.083% IH SOL 2.5 MG/3 ML VIAL.NEB. NEB PRN (13:13)
--- NOTE | 2018-10-09 13:13 | PN ---
Progress Note (short form) - Note Progress Note: PULMONARY Still with some shortness of breath, cough and wheezing. No fevers or chills. Vital Signs Period Temp Pulse Resp BP Sys/Vasquez Pulse Ox Last 24 Hr 98.2 F-98.9 F 106-126 18-32 155-180/69-106 95-97 Gen: NAD at rest Heart: RRR Lung: scattered rhonchi, wheezes Abd: soft, nontender Ext: no edema CBC, BMP 10/09/18 07:20 10/09/18 07:25 Active Medications Albuterol/Ipratropium (Duoneb -) 1 amp NEB Q6H PRN PRN Reason: SHORTNESS OF BREATH Last Admin: 10/09/18 00:40 Dose: 1 amp Clopidogrel Bisulfate (Plavix -) 75 mg PO DAILY [facility] Last Admin: 10/09/18 10:26 Dose: 75 mg Escitalopram Oxalate (Lexapro -) 10 mg PO DAILY [facility] Last Admin: 10/09/18 10:26 Dose: 10 mg Guaifenesin (Robitussin -) 10 ml PO Q6H PRN PRN Reason: COUGH Last Admin: 10/09/18 10:26 Dose: 10 ml Heparin Sodium (Porcine) (Heparin -) 5,000 unit SQ BID [facility] Last Admin: 10/09/18 10:26 Dose: 5,000 unit Piperacillin Sod/Tazobactam (Sod 2.25 gm/ Dextrose) 50 mls @ 100 mls/hr IVPB Q8H-IV [facility]; Protocol Last Admin: 10/09/18 10:25 Dose: 100 mls/hr Azithromycin (Zithromax 500mg Ivpb (Pre-Docked)) 500 mg in 250 mls @ 250 mls/ hr IVPB DAILY [facility] Last Admin: 10/09/18 10:25 Dose: 250 mls/hr Insulin Aspart (Novolog Vial Sliding Scale -) 1 vial SQ TIDAC [facility]; Protocol Last Admin: 10/09/18 12:01 Dose: 4 units Methylprednisolone Sodium Succinate (Solu-Medrol -) 40 mg IVPUSH Q12H [facility] Last Admin: 10/09/18 11:57 Dose: 40 mg Metoprolol Succinate (Toprol Xl -) 50 mg PO DAILY [facility] Last Admin: 10/09/18 10:26 Dose: 50 mg Pantoprazole Sodium (Protonix -) 40 mg PO DAILY [facility] Last Admin: 10/09/18 10:26 Dose: 40 mg Rosuvastatin Calcium (Crestor -) 10 mg PO [facility] Last Admin: 10/08/18 21:40 Dose: 10 mg A/P Acute on Chronic Systolic Heart Failure r/o Pneumonia Acute on Chronic Renal Failure HTN DM Hyperlipidemia h/o CVA - continue empiric antibiotics - continue medrol at current dose - inhaled bronchodilators - O2 to keep spO2 >90% - cardiac work up in progress
--- NOTE | 2018-10-09 15:28 | PN ---
Progress Note (short form) - Note Progress Note: Renal follow up for JACK/Fluid overload Pt seen and examined at the bedside awake and alert daughter at the bedside sob, cough improved making urine via bermudez no fever, chills no chest pain Vital Signs Temperature 98.2 F 10/09/18 14:11 Pulse Rate 106 H 10/09/18 14:11 Respiratory Rate 28 H 10/09/18 14:11 Blood Pressure 145/94 10/09/18 14:11 O2 Sat by Pulse Oximetry (%) 95 10/09/18 09:00 Intake & Output 10/06/18 10/07/18 10/08/18 10/09/18 23:59 23:59 23:59 23:59 Intake Total 1080 1410 1480 520 Output Total 1100 Balance 1080 1410 1480 -580 Weight 72.348 kg 72.121 kg NAD on NC O2 RRR + rales at bilateral lung bases soft NT/ND no LE or sacral edema CBC, BMP 10/09/18 07:20 10/09/18 07:25 Current Medications Albuterol Sulfate (Ventolin 0.083% Nebulizer Soln -) 1 amp NEB Q4H [facility] Albuterol/Ipratropium (Duoneb -) 1 amp NEB RQID [facility] Clopidogrel Bisulfate (Plavix -) 75 mg PO DAILY [facility] Last Admin: 10/09/18 10:26 Dose: 75 mg Escitalopram Oxalate (Lexapro -) 10 mg PO DAILY [facility] Last Admin: 10/09/18 10:26 Dose: 10 mg Guaifenesin (Robitussin -) 10 ml PO Q6H PRN PRN Reason: COUGH Last Admin: 10/09/18 10:26 Dose: 10 ml Heparin Sodium (Porcine) (Heparin -) 5,000 unit SQ BID [facility] Last Admin: 10/09/18 10:26 Dose: 5,000 unit Piperacillin Sod/Tazobactam (Sod 2.25 gm/ Dextrose) 50 mls @ 100 mls/hr IVPB Q8H-IV [facility]; Protocol Last Admin: 10/09/18 10:25 Dose: 100 mls/hr Azithromycin (Zithromax 500mg Ivpb (Pre-Docked)) 500 mg in 250 mls @ 250 mls/ hr IVPB DAILY [facility] Last Admin: 10/09/18 10:25 Dose: 250 mls/hr Insulin Aspart (Novolog Vial Sliding Scale -) 1 vial SQ TIDAC [facility]; Protocol Last Admin: 10/09/18 12:01 Dose: 4 units Methylprednisolone Sodium Succinate (Solu-Medrol -) 40 mg IVPUSH Q12H [facility] Last Admin: 10/09/18 11:57 Dose: 40 mg Metoprolol Succinate (Toprol Xl -) 50 mg PO DAILY [facility] Last Admin: 10/09/18 10:26 Dose: 50 mg Pantoprazole Sodium (Protonix -) 40 mg PO DAILY [facility] Last Admin: 10/09/18 10:26 Dose: 40 mg Rosuvastatin Calcium (Crestor -) 10 mg PO HS [facility] Last Admin: 10/08/18 21:40 Dose: 10 mg 88 yr old woman with a PMH of severe systolic CHF (on O2 3L NC at home, never required bipap or intubation), HTN, HLD, DM and CKD (baseline Cr ~1.6), CAD, and CVA who was sent in by Dr. Rayo Alberts for CHF exacerbation. 88 year old woman with hx of CKD stage 3 (baseline Cr 1.4-1.6), CHF, HTN, HLD, DM, CAD who presented with sob and admitted for CHF exacerbation witih JACK on CKD. #JACK on CKD r/o Cardio-renal syndrome vs. ATN #Hyponatremia (hypervolemic) #CHF exacerbation #Hypertension #CAD #DM Renal function unchanged, no acidosis or hyperkalemia pt is non-oliguric and voiding via catheter holding diuretics for now given worsening renal function in setting of diuretics and PNA Fluid restriction of 1L daily for now given low Na level Can give PRN IVP Laisx if SOB worsens however CXR and CT chest more indicative of PNA Low salt diet Continue empiric antibiotics and follow up cultures supportive care Cardiology following Thank you Javon Cota DO
[2018-10-09] MEDS: ALBUTEROL SO4 2.5/IPRATROPIUM 0.5 INH SOL 3 ML VIAL.NEB. NEB SCH ×2 (15:30→20:11)
[2018-10-09] MEDS ORDERED: ALBUTEROL SO4 0.083% IH SOL 2.5 MG/3 ML VIAL.NEB. NEB SCH (15:30)
[2018-10-09] MEDS: ROSUVASTATIN CA 10 MG TABLET (FP) PO SCH (22:35)
--- NOTE | 2018-10-09 23:47 | PN ---
Progress Note, Physician History of Present Illness: No new complaints - Current Medication List Current Medications: Active Medications Albuterol/Ipratropium (Duoneb -) 1 amp NEB RQID [facility] Last Admin: 10/09/18 20:11 Dose: 1 amp Clopidogrel Bisulfate (Plavix -) 75 mg PO DAILY [facility] Last Admin: 10/09/18 10:26 Dose: 75 mg Escitalopram Oxalate (Lexapro -) 10 mg PO DAILY [facility] Last Admin: 10/09/18 10:26 Dose: 10 mg Guaifenesin (Robitussin -) 10 ml PO Q6H PRN PRN Reason: COUGH Last Admin: 10/09/18 10:26 Dose: 10 ml Piperacillin Sod/Tazobactam (Sod 2.25 gm/ Dextrose) 50 mls @ 100 mls/hr IVPB Q8H-IV [facility]; Protocol Last Admin: 10/09/18 17:07 Dose: 100 mls/hr Azithromycin (Zithromax 500mg Ivpb (Pre-Docked)) 500 mg in 250 mls @ 250 mls/ hr IVPB DAILY [facility] Last Admin: 10/09/18 10:25 Dose: 250 mls/hr Insulin Aspart (Novolog Vial Sliding Scale -) 1 vial SQ TIDAC [facility]; Protocol Last Admin: 10/09/18 17:11 Dose: 4 units Methylprednisolone Sodium Succinate (Solu-Medrol -) 40 mg IVPUSH Q12H [facility] Last Admin: 10/09/18 11:57 Dose: 40 mg Metoprolol Succinate (Toprol Xl -) 50 mg PO DAILY [facility] Last Admin: 10/09/18 10:26 Dose: 50 mg Pantoprazole Sodium (Protonix -) 40 mg PO DAILY [facility] Last Admin: 10/09/18 10:26 Dose: 40 mg Rosuvastatin Calcium (Crestor -) 10 mg PO HS [facility] Last Admin: 10/09/18 22:35 Dose: 10 mg - Objective Vital Signs: Vital Signs Temperature 98.4 F 10/09/18 22:00 Pulse Rate 105 H 10/09/18 22:00 Respiratory Rate 22 H 10/09/18 22:00 Blood Pressure 168/94 10/09/18 22:00 O2 Sat by Pulse Oximetry (%) 100 10/09/18 21:00 Neck: Yes: WNL, Supple Cardiovascular: Yes: WNL, Regular Rate and Rhythm Respiratory: Yes: Rhonchi Gastrointestinal: Yes: WNL, Normal Bowel Sounds, Soft Labs: CBC, BMP 10/09/18 07:20 10/09/18 07:25 Problem List - Problems (1) Pneumonia Assessment/Plan: CXR showed b/l pleural effusions and increased b/l airspace opacities IV antibxs Cont nebulizers/IV steroids Code(s): J18.9 - PNEUMONIA, UNSPECIFIED ORGANISM (2) Acute on chronic systolic (congestive) heart failure Assessment/Plan: Lasix on hold due to increasing creatinine and decreasing sodium As per cardio Code(s): I50.23 - ACUTE ON CHRONIC SYSTOLIC (CONGESTIVE) HEART FAILURE (3) CKD (chronic kidney disease) Assessment/Plan: Renal consult Code(s): N18.9 - CHRONIC KIDNEY DISEASE, UNSPECIFIED (4) HTN (hypertension) Assessment/Plan: BP stable Cont metoprolol/lisinopril Code(s): I10 - ESSENTIAL (PRIMARY) HYPERTENSION (5) HLD (hyperlipidemia) Assessment/Plan: Cont crestor Code(s): E78.5 - HYPERLIPIDEMIA, UNSPECIFIED (6) Osteoarthritis Code(s): M19.90 - UNSPECIFIED OSTEOARTHRITIS, UNSPECIFIED SITE Qualifiers: Osteoarthritis location: knee Osteoarthritis type: unspecified Laterality : right Qualified Code(s): M17.11 - Unilateral primary osteoarthritis, right knee (7) CAD (coronary artery disease) Assessment/Plan: Cont plavix Code(s): I25.10 - ATHSCL HEART DISEASE OF [place] CORONARY ARTERY W/O ANG PCTRS
[2018-10-10] MEDS: methylPREDNISolone NA SUCC 40 MG/1 ML VIAL IVPUSH SCH ×3 (00:52→23:24)
[2018-10-10] MEDS ORDERED: PIPERACILLIN/TAZOBACTAM 2.25 GM VIAL IVPB ONE ×3 (02:01→17:49)
[2018-10-10] MEDS ORDERED: DEXTROSE 5%-WATER - 50 ML IVPB ONE ×3 (02:02→17:49)
[2018-10-10] MEDS ORDERED: LORazepam 2 MG/ML SDV VIAL IVPUSH ONE (02:45)
[2018-10-10] MEDS: PIPERACILLIN/TAZOB 2.25 GM 2.25 GM in DEXTROSE 5%-WATER - 50 ML IVPB SCH ×3 (03:03→17:53)
[2018-10-10] MEDS: ALBUTEROL SO4 2.5/IPRATROPIUM 0.5 INH SOL 3 ML VIAL.NEB. NEB SCH ×4 (07:35→20:49)
[2018-10-10 07:49] LABS: BASO % 0.1 % (0-2.0); HEMATOCRIT 30.4 % (32.4-45.2); HEMOGLOBIN 10.1 GM/dL (10.7-15.3); MCH 27.4 pg (25.7-33.7); MCHC 33.1 g/dl (32.0-36.0); MEAN CELL VOLUME 82.5 fl (80-96); MEAN PLT VOLUME 7.7 fl (7.5-11.1); MONO % 11.9 % (3.8-10.2); RBC 3.69 M/mm3 (3.60-5.2); RDW 14.1 % (11.6-15.6); WHITE BLOOD COUNT 19.7 K/mm3 (4.0-10.0)
[2018-10-10] MEDS: INSULIN SLIDING SCALE (NOVOLOG) 1 VIAL SQ SCH ×3 (08:45→16:25)
[2018-10-10 09:11] LABS: ALBUMIN 2.4 g/dl (3.4-5.0); BILIRUBIN,TOTAL 0.4 mg/dL (0.2-1); CALCIUM 9.5 mg/dL (8.5-10.1); CREATININE 2.6 mg/dL (0.55-1.3); MAGNESIUM 2.3 mg/dL (1.8-2.4); PHOSPHOROUS 6.4 mg/dL (2.5-4.9); POTASSIUM 4.8 mmol/L (3.5-5.1); TOT PROT 6.9 g/dl (6.4-8.2)
--- NOTE | 2018-10-10 09:42 | PN ---
Progress Note, Physician Chief Complaint: seen and examined, daughter at bedside Reported agitation overnight, received Ativan around 3 am Patient now sleepy, but opens eyes TELE: ST, IVCD, PVCs History of Present Illness: BP has been elevated - Current Medication List Current Medications: Active Medications Albuterol/Ipratropium (Duoneb -) 1 amp NEB RQID [facility] Last Admin: 10/10/18 07:35 Dose: 1 amp Clopidogrel Bisulfate (Plavix -) 75 mg PO DAILY [facility] Last Admin: 10/09/18 10:26 Dose: 75 mg Escitalopram Oxalate (Lexapro -) 10 mg PO DAILY [facility] Last Admin: 10/09/18 10:26 Dose: 10 mg Guaifenesin (Robitussin -) 10 ml PO Q6H PRN PRN Reason: COUGH Last Admin: 10/09/18 10:26 Dose: 10 ml Piperacillin Sod/Tazobactam (Sod 2.25 gm/ Dextrose) 50 mls @ 100 mls/hr IVPB Q8H-IV [facility]; Protocol Last Admin: 10/10/18 03:03 Dose: 100 mls/hr Azithromycin (Zithromax 500mg Ivpb (Pre-Docked)) 500 mg in 250 mls @ 250 mls/ hr IVPB DAILY [facility] Last Admin: 10/09/18 10:25 Dose: 250 mls/hr Insulin Aspart (Novolog Vial Sliding Scale -) 1 vial SQ TIDAC [facility]; Protocol Last Admin: 10/10/18 08:45 Dose: 4 units Methylprednisolone Sodium Succinate (Solu-Medrol -) 40 mg IVPUSH Q12H [facility] Last Admin: 10/10/18 00:52 Dose: 40 mg Metoprolol Succinate (Toprol Xl -) 50 mg PO DAILY [facility] Last Admin: 10/09/18 10:26 Dose: 50 mg Pantoprazole Sodium (Protonix -) 40 mg PO DAILY [facility] Last Admin: 10/09/18 10:26 Dose: 40 mg Rosuvastatin Calcium (Crestor -) 10 mg PO HS [facility] Last Admin: 10/09/18 22:35 Dose: 10 mg - Objective Vital Signs: Vital Signs Temperature 98.9 F 10/10/18 09:00 Pulse Rate 119 H 10/10/18 09:00 Respiratory Rate 20 10/10/18 09:00 Blood Pressure 186/90 H 10/10/18 09:00 O2 Sat by Pulse Oximetry (%) 100 10/09/18 21:00 Eyes: Yes: Conjunctiva Clear Cardiovascular: Yes: Regular Rate and Rhythm Respiratory: Yes: Rhonchi Gastrointestinal: Yes: Soft Edema: No (warm) Labs: CBC, BMP 10/10/18 07:00 10/10/18 07:00 - ....Imaging EKG: Image Reviewed Assessment/Plan echo: LVSF appears mldly reduced, 40-45%. nl RV. mild MR. tele: sinus tachy, occ pvcs Assessment/Plan Acute on chronic systolic CHF: -after diuresis BUN/Creat worsening, hyponatremia worsening. Thus lasix stopped as it does not appear she is vol overloaded. More likely her pulm findings are pna related. -cont bb. marjan held for jack. Suspected underlying CAD: -no signs acs -pt/family have declined cath due to MIKE risks (see prior dr welsh notes) JACK on CKD: -likely due to diuresis, cont to hold lasix and monitor cr trend- remains essentially stable. htn: -elevated: can add low dose Amlodipine. Cautious not to drop BP acutely in setting CKD, with acute component. -marjan held due to jack. NSVT: -cont bb -sinus tachycardia noted on tele - likely in setting of PNA Altered MS: -Likely due to Ativan -Plan to move patient to ICU for closer observation -Suppl O2 as needed. -If MS does not improve, check head CT
[2018-10-10] MEDS: AZITHROMYCIN IVPB 500 MG/250 ML BAG IVPB SCH (11:07)
[2018-10-10] MEDS: PANTOPRAZOLE 40 MG TABLET (FP) PO SCH (11:09)
[2018-10-10] MEDS: amLODIPine BESYLATE 2.5 MG TABLET (FP) PO SCH (11:09)
[2018-10-10] MEDS: metoPROLOL SUCCINATE 25 MG TAB.SR.24H (FP) PO SCH (11:10)
[2018-10-10] MEDS: ESCITALOPRAM OXALATE 10 MG TABLET (FP) PO SCH (11:10)
[2018-10-10] MEDS: CLOPIDOGREL BISULFATE 75 MG TABLET (FP) PO SCH (11:10)
[2018-10-10 12:23] LABS: ANISOCYTOSIS 3+; MACROCYTOSIS 0; PLATELET ESTIMATE INCREASED
[2018-10-10 12:25] LABS: PLATELET COUNT 603 K/MM3 (134-434)
--- NOTE | 2018-10-10 12:49 | CONSULT ---
Consultation: REQUESTING PROVIDER: dr. Whitaker CONSULT REQUEST: We have been asked to medically evaluate this patient for ( specify). HISTORY OF PRESENT ILLNESS: 88 y/o female with PMH of HTN, CHF, CKD, HLD, CAD presented to the ED aboutn one week ago with complaints of shortness of breath and worsening lower extremity edema, patient was found to have B/L pleural effusions, CHF exacerbation as well as a pneumonia. As of last night patient was found to be saturating in the mid 80's on 3lNC, and also received ativan for agitation overnight- this AM patient has been lethargic yet arousable and has been saturating in the low 90's ; we were asked to evaluate for hypoxemia and change in mental status. REVIEW OF SYSTEMS: (unbobtained as patient is lethargic) CONSTITUTIONAL: Absent: fever, chills, diaphoresis, generalized weakness, malaise, loss of appetite, weight change HEENT: Absent: rhinorrhea, nasal congestion, throat pain, throat swelling, difficulty swallowing, mouth swelling, ear pain, eye pain, visual changes CARDIOVASCULAR: Absent: chest pain, syncope, palpitations, irregular heart rate, lightheadedness , peripheral edema RESPIRATORY: Absent: cough, shortness of breath, dyspnea with exertion, orthopnea, wheezing, stridor, hemoptysis GASTROINTESTINAL: Absent: abdominal pain, abdominal distension, nausea, vomiting, diarrhea, constipation, melena, hematochezia GENITOURINARY: Absent: dysuria, frequency, urgency, hesitancy, hematuria, flank pain, genital pain MUSCULOSKELETAL: Absent: myalgia, arthralgia, joint swelling, back pain, neck pain SKIN: Absent: rash, itching, pallor HEMATOLOGIC/IMMUNOLOGIC: Absent: easy bleeding, easy bruising, lymphadenopathy, frequent infections ENDOCRINE: Absent: unexplained weight gain, unexplained weight loss, heat intolerance, cold intolerance NEUROLOGIC: Absent: headache, focal weakness or paresthesias, dizziness, unsteady gait, seizure, mental status changes, bladder or bowel incontinence PSYCHIATRIC: Absent: anxiety, depression, suicidal or homicidal ideation, hallucinations. PHYSICAL EXAMINATION Vital Signs - 24 hr 10/09/18 10/09/18 10/09/18 14:11 18:00 21:00 Temperature 98.2 F 98.5 F Pulse Rate 106 H 112 H Respiratory 28 H 25 H 25 H Rate Blood Pressure 145/94 162/104 H O2 Sat by Pulse 100 Oximetry (%) 10/09/18 10/10/18 10/10/18 22:00 02:00 05:24 Temperature 98.4 F 98.3 F 97.8 F Pulse Rate 105 H 113 H 99 H Respiratory 22 H 22 H 18 Rate Blood Pressure 168/94 187/11 H 128/76 O2 Sat by Pulse Oximetry (%) 10/10/18 10/10/18 10/10/18 09:00 09:58 11:16 Temperature 98.9 F Pulse Rate 119 H 111 H 95 H Respiratory 20 18 19 Rate Blood Pressure 186/90 H 160/102 H 156/105 H O2 Sat by Pulse Oximetry (%) GENERAL: lethargic but arousable; follows commands EYES: PEERLA: EOMI no scleral icterus NECK: no JVD; no lymphadenopathy LUNGS: scattered rhonchi B/L HEART: Regular rate and rhythm, normal S1 and S2 without murmur, rub or gallop. ABDOMEN: Soft, nontender, not distended, normoactive bowel sounds, no guarding, no rebound, no masses. No hepatomegaly or splenomegaly. MUSCULOSKELETAL: Normal range of motion at all joints. No bony deformities or tenderness. No CVA tenderness. EXTREMITIES; warm; well-perfused no clubbing ; trace edema NEUROLOGICAL: follows commands but lethargic PSYCHIATRIC: Cooperative. Good eye contact. Appropriate mood and affect. SKIN: Warm, dry, normal turgor, no rashes or lesions noted. Laboratory Results - last 24 hr 10/09/18 10/10/18 10/10/18 17:08 07:00 07:00 WBC 19.7 H RBC 3.69 Hgb 10.1 L Hct 30.4 L MCV 82.5 MCH 27.4 MCHC 33.1 RDW 14.1 Plt Count 603 H MPV 7.7 Absolute Neuts (auto) 16.5 H Neutrophils % 84.0 H Neutrophils % (Manual) 86.0 H Band Neutrophils % 0.0 Lymphocytes % 4.0 L Lymphocytes % (Manual) 6.0 L D Monocytes % 11.9 H Monocytes % (Manual) 8 Eosinophils % 0.0 Eosinophils % (Manual) 0.0 Basophils % 0.1 D Basophils % (Manual) 0.0 Myelocytes % (Man) 0 Promyelocytes % (Man) 0 Blast Cells % (Manual) 0 Nucleated RBC % 0 Metamyelocytes 0 Hypochromia 0 Platelet Estimate Increased Polychromasia 1+ Poikilocytosis 0 Anisocytosis 3+ Microcytosis 3+ Macrocytosis 0 Sodium 125 L Potassium 4.8 Chloride 88 L Carbon Dioxide 28 Anion Gap 9 BUN 67 H Creatinine 2.6 H Est GFR (CKD-EPI)AfAm 18.61 Est GFR (CKD-EPI)NonAf 16.06 POC Glucometer 241 Random Glucose 228 H Calcium 9.5 Phosphorus 6.4 H Magnesium 2.3 Total Bilirubin 0.4 AST 25 ALT 47 Alkaline Phosphatase 100 Total Protein 6.9 Albumin 2.4 L 10/10/18 10/10/18 08:40 11:59 WBC RBC Hgb Hct MCV MCH MCHC RDW Plt Count MPV Absolute Neuts (auto) Neutrophils % Neutrophils % (Manual) Band Neutrophils % Lymphocytes % Lymphocytes % (Manual) Monocytes % Monocytes % (Manual) Eosinophils % Eosinophils % (Manual) Basophils % Basophils % (Manual) Myelocytes % (Man) Promyelocytes % (Man) Blast Cells % (Manual) Nucleated RBC % Metamyelocytes Hypochromia Platelet Estimate Polychromasia Poikilocytosis Anisocytosis Microcytosis Macrocytosis Sodium Potassium Chloride Carbon Dioxide Anion Gap BUN Creatinine Est GFR (CKD-EPI)AfAm Est GFR (CKD-EPI)NonAf POC Glucometer 210 237 Random Glucose Calcium Phosphorus Magnesium Total Bilirubin AST ALT Alkaline Phosphatase Total Protein Albumin Active Medications Generic Name Dose Route Start Last Admin Trade Name Freq PRN Reason Stop Dose Admin Albuterol/Ipratropium 1 amp 10/09/18 16:00 10/10/18 11:07 Duoneb - NEB 1 amp RQID [facility] Administration Amlodipine Besylate 2.5 mg 10/10/18 10:00 10/10/18 11:09 Norvasc - PO 2.5 mg DAILY [facility] Administration Clopidogrel Bisulfate 75 mg 10/02/18 16:45 10/10/18 11:10 Plavix - PO 75 mg DAILY [facility] Administration Escitalopram Oxalate 10 mg 10/02/18 17:00 10/10/18 11:10 Lexapro - PO 10 mg DAILY [facility] Administration Guaifenesin 10 ml 10/08/18 11:16 10/09/18 10:26 Robitussin - PO 10 ml Q6H PRN Administration COUGH Piperacillin Sod/Tazobactam 50 mls @ 100 mls/hr 10/06/18 15:30 10/10/18 09:50 Sod 2.25 gm/ Dextrose IVPB 100 mls/hr Q8H-IV [facility] Administration Protocol Azithromycin 500 mg in 250 mls @ 250 mls/hr 10/07/18 10:00 10/10/18 11:07 Zithromax 500mg Ivpb (Pre-Docked) IVPB 250 mls/hr DAILY [facility] Administration Insulin Aspart 1 vial 10/04/18 17:15 10/10/18 12:01 Novolog Vial Sliding Scale - SQ 4 units TIDAC [facility] Administration Protocol Methylprednisolone Sodium Succinate 40 mg 10/08/18 11:30 10/10/18 11:07 Solu-Medrol - IVPUSH 40 mg Q12H [facility] Administration Metoprolol Succinate 50 mg 10/09/18 09:21 10/10/18 11:10 Toprol Xl - PO 50 mg DAILY [facility] Administration Pantoprazole Sodium 40 mg 10/04/18 17:00 10/10/18 11:09 Protonix - PO 40 mg DAILY [facility] Administration Rosuvastatin Calcium 10 mg 10/02/18 22:00 10/09/18 22:35 Crestor - PO 10 mg HS [facility] Administration ASSESSMENT/PLAN: 88 y/o female with PMH of HTN. HLD, CHF, CKD, DM presents to the ED with worsening shortness of breath and LE edema found to have B/L pleural effusions and pneumonia Currently patient is saturating at 92% on 3.5L NC and does not appear in respiratory distress; she is not using accessory muscles etc. Her decreased saturations is likely due to her pleural effusions and pnuemonia. In terms of mental status, likely 2/2 ativan use. Currently we do not think that patient needs ICU level of care. Will reevaluate in a few hours, if patients respiratory status changes/worsens or if her mental status does not improve then can reevaluate and will take patient. Will continue to follow Dispo: We will continue to follow the patient. Thank you for this consultative opportunity.
--- NOTE | 2018-10-10 13:58 | PN ---
Progress Note, Physician History of Present Illness: pulmonary awake,confused,less congested - Current Medication List Current Medications: Active Medications Albuterol/Ipratropium (Duoneb -) 1 amp NEB RQID [facility] Last Admin: 10/10/18 11:07 Dose: 1 amp Amlodipine Besylate (Norvasc -) 2.5 mg PO DAILY [facility] Last Admin: 10/10/18 11:09 Dose: 2.5 mg Clopidogrel Bisulfate (Plavix -) 75 mg PO DAILY [facility] Last Admin: 10/10/18 11:10 Dose: 75 mg Escitalopram Oxalate (Lexapro -) 10 mg PO DAILY [facility] Last Admin: 10/10/18 11:10 Dose: 10 mg Guaifenesin (Robitussin -) 10 ml PO Q6H PRN PRN Reason: COUGH Last Admin: 10/09/18 10:26 Dose: 10 ml Piperacillin Sod/Tazobactam (Sod 2.25 gm/ Dextrose) 50 mls @ 100 mls/hr IVPB Q8H-IV [facility]; Protocol Last Admin: 10/10/18 09:50 Dose: 100 mls/hr Azithromycin (Zithromax 500mg Ivpb (Pre-Docked)) 500 mg in 250 mls @ 250 mls/ hr IVPB DAILY [facility] Last Admin: 10/10/18 11:07 Dose: 250 mls/hr Insulin Aspart (Novolog Vial Sliding Scale -) 1 vial SQ TIDAC [facility]; Protocol Last Admin: 10/10/18 12:01 Dose: 4 units Methylprednisolone Sodium Succinate (Solu-Medrol -) 40 mg IVPUSH Q12H [facility] Last Admin: 10/10/18 11:07 Dose: 40 mg Metoprolol Succinate (Toprol Xl -) 50 mg PO DAILY [facility] Last Admin: 10/10/18 11:10 Dose: 50 mg Pantoprazole Sodium (Protonix -) 40 mg PO DAILY [facility] Last Admin: 10/10/18 11:09 Dose: 40 mg Rosuvastatin Calcium (Crestor -) 10 mg PO HS [facility] Last Admin: 10/09/18 22:35 Dose: 10 mg - Objective Vital Signs: Vital Signs Temperature 98.9 F 10/10/18 09:00 Pulse Rate 95 H 10/10/18 11:16 Respiratory Rate 10/10/18 11:16 Blood Pressure 156/105 H 10/10/18 11:16 O2 Sat by Pulse Oximetry (%) 100 10/09/18 21:00 Constitutional: Yes: Well Nourished, Calm, Other (confused) Eyes: Yes: WNL HENT: Yes: WNL Neck: Yes: WNL Cardiovascular: Yes: Pulse Irregular, S1, S2 Respiratory: Yes: Rales (bilateral crackles) Gastrointestinal: Yes: Normal Bowel Sounds, Soft Extremities: Yes: WNL Edema: No Labs: CBC, BMP 10/10/18 07:00 10/10/18 07:00 Assessment/Plan IMP DYSPNEA ACUTE ON CHRONIC CHF ACUTE ON CHRONIC KIDNEY DISEASE ? ASHD HTN DM HLD H/O CVA PNEUMONIA HYPONATREMIA PLAN LASIX PER CARDIOLOGY DAILY WT SUPPLEMENTAL O2 INHALED BRONCHODILATORS PRN MONITOR LYTES,RENAL FUNCTION,NA F/U CHEST X-RAYs STEROID TAPER ABX DR RENEE
[2018-10-10] MEDS ORDERED: FUROSEMIDE 40 MG/4 ML INJECTABLE VIAL IVPUSH ONE (14:39)
--- NOTE | 2018-10-10 15:05 | PN ---
Progress Note (short form) - Note Progress Note: Renal follow up for JACK/Fluid overload Pt seen and examined at the bedside awake but appears unconfortable was agigated overnight O2 sat is low oral intake is poor no chest pain, fever or chills Vital Signs Temperature 98.9 F 10/10/18 14:57 Pulse Rate 113 H 10/10/18 14:57 Respiratory Rate 18 10/10/18 14:57 Blood Pressure 156/115 H 10/10/18 14:57 O2 Sat by Pulse Oximetry (%) 100 10/09/18 21:00 Intake & Output 10/07/18 10/08/18 10/09/18 10/10/18 23:59 23:59 23:59 23:59 Intake Total 1410 1480 720 50 Output Total 1600 400 Balance 1410 1480 -880 -350 Weight 72.348 kg 72.121 kg 71.838 kg NAD on NC O2 RRR + rales at bilateral lung bases soft NT/ND no LE or sacral edema CBC, BMP 10/10/18 07:00 10/10/18 07:00 Current Medications Albuterol/Ipratropium (Duoneb -) 1 amp NEB RQID [facility] Last Admin: 10/10/18 11:07 Dose: 1 amp Amlodipine Besylate (Norvasc -) 2.5 mg PO DAILY [facility] Last Admin: 10/10/18 11:09 Dose: 2.5 mg Clopidogrel Bisulfate (Plavix -) 75 mg PO DAILY [facility] Last Admin: 10/10/18 11:10 Dose: 75 mg Escitalopram Oxalate (Lexapro -) 10 mg PO DAILY [facility] Last Admin: 10/10/18 11:10 Dose: 10 mg Guaifenesin (Robitussin -) 10 ml PO Q6H PRN PRN Reason: COUGH Last Admin: 10/09/18 10:26 Dose: 10 ml Piperacillin Sod/Tazobactam (Sod 2.25 gm/ Dextrose) 50 mls @ 100 mls/hr IVPB Q8H-IV [facility]; Protocol Last Admin: 10/10/18 09:50 Dose: 100 mls/hr Azithromycin (Zithromax 500mg Ivpb (Pre-Docked)) 500 mg in 250 mls @ 250 mls/ hr IVPB DAILY [facility] Last Admin: 10/10/18 11:07 Dose: 250 mls/hr Insulin Aspart (Novolog Vial Sliding Scale -) 1 vial SQ TIDAC [facility]; Protocol Last Admin: 10/10/18 12:01 Dose: 4 units Methylprednisolone Sodium Succinate (Solu-Medrol -) 40 mg IVPUSH Q12H [facility] Last Admin: 10/10/18 11:07 Dose: 40 mg Metoprolol Succinate (Toprol Xl -) 50 mg PO DAILY [facility] Last Admin: 10/10/18 11:10 Dose: 50 mg Pantoprazole Sodium (Protonix -) 40 mg PO DAILY [facility] Last Admin: 10/10/18 11:09 Dose: 40 mg Rosuvastatin Calcium (Crestor -) 10 mg PO HS [facility] Last Admin: 10/09/18 22:35 Dose: 10 mg 88 yr old woman with a PMH of severe systolic CHF (on O2 3L NC at home, never required bipap or intubation), HTN, HLD, DM and CKD (baseline Cr ~1.6), CAD, and CVA who was sent in by Dr. Rayo Alberts for CHF exacerbation. 88 year old woman with hx of CKD stage 3 (baseline Cr 1.4-1.6), CHF, HTN, HLD, DM, CAD who presented with sob and admitted for CHF exacerbation wit JACK on CKD. #JACK on CKD r/o Cardio-renal syndrome vs. ATN #Hyponatremia (hypervolemic) #CHF exacerbation #Hypertension #CAD #DM Renal function unchanged but pt appears to be clinically worsening given hypoxia, congestion on CXR reasonable to give trial of IV diuresis (can give once dose now and then repeat in 6-8 hours if clinical status not improved) continue supplemental O2 to have CT head done to r/o acute acute ischemic changes ABG as per pulmonary Fluid restriction of 1L daily Low salt diet Continue empiric antibiotics and follow up cultures supportive care case discussed with Cardiology Thank you Javon Cota DO
[2018-10-10 15:36] LABS: ARTERIAL BLD GAS O2 SATURATION 92.2 % (95-98); ARTERIAL BLOOD GAS BASE EXCESS 0.7 meq/l (-2-2); ARTERIAL BLOOD GAS PO2 67.1 mmHg (80-105)
[2018-10-10 15:38] LABS: ALLENS TEST POSITIVE
--- NOTE | 2018-10-10 16:44 | PN ---
Progress Note, Physician History of Present Illness: LETHARGIC TODAY IN BED BREATHING NON LABORED AFEBRILE - Current Medication List Current Medications: Active Medications Albuterol/Ipratropium (Duoneb -) 1 amp NEB RQID [facility] Last Admin: 10/10/18 15:32 Dose: 1 amp Amlodipine Besylate (Norvasc -) 2.5 mg PO DAILY [facility] Last Admin: 10/10/18 11:09 Dose: 2.5 mg Clopidogrel Bisulfate (Plavix -) 75 mg PO DAILY [facility] Last Admin: 10/10/18 11:10 Dose: 75 mg Escitalopram Oxalate (Lexapro -) 10 mg PO DAILY [facility] Last Admin: 10/10/18 11:10 Dose: 10 mg Guaifenesin (Robitussin -) 10 ml PO Q6H PRN PRN Reason: COUGH Last Admin: 10/09/18 10:26 Dose: 10 ml Piperacillin Sod/Tazobactam (Sod 2.25 gm/ Dextrose) 50 mls @ 100 mls/hr IVPB Q8H-IV [facility]; Protocol Last Admin: 10/10/18 09:50 Dose: 100 mls/hr Azithromycin (Zithromax 500mg Ivpb (Pre-Docked)) 500 mg in 250 mls @ 250 mls/ hr IVPB DAILY [facility] Last Admin: 10/10/18 11:07 Dose: 250 mls/hr Insulin Aspart (Novolog Vial Sliding Scale -) 1 vial SQ TIDAC [facility]; Protocol Last Admin: 10/10/18 16:25 Dose: Not Given Methylprednisolone Sodium Succinate (Solu-Medrol -) 40 mg IVPUSH Q12H [facility] Last Admin: 10/10/18 11:07 Dose: 40 mg Metoprolol Succinate (Toprol Xl -) 50 mg PO DAILY [facility] Last Admin: 10/10/18 11:10 Dose: 50 mg Pantoprazole Sodium (Protonix -) 40 mg PO DAILY [facility] Last Admin: 10/10/18 11:09 Dose: 40 mg Rosuvastatin Calcium (Crestor -) 10 mg PO HS [facility] Last Admin: 10/09/18 22:35 Dose: 10 mg - Objective Vital Signs: Vital Signs Temperature 98.9 F 10/10/18 14:57 Pulse Rate 113 H 10/10/18 14:57 Respiratory Rate 18 10/10/18 14:57 Blood Pressure 156/115 H 10/10/18 14:57 O2 Sat by Pulse Oximetry (%) 91 L 10/10/18 09:00 Constitutional: Yes: No Distress, Obese Cardiovascular: Yes: Regular Rate and Rhythm, S1, S2 Respiratory: Yes: Other (+ CREPITATIONS AT BASES) Gastrointestinal: Yes: Normal Bowel Sounds, Soft. No: Tenderness Edema: LLE: 1+, RLE: 1+ Labs: CBC, BMP 10/10/18 07:00 10/10/18 07:00 Assessment/Plan CHF R/O PNEUMONIA HYPONATREMIA CKD DM CONTINUE ZITHROMAX/ ZOSYN
[2018-10-10] MEDS: ROSUVASTATIN CA 10 MG TABLET (FP) PO SCH (21:04)
--- NOTE | 2018-10-10 22:23 | PN ---
Progress Note, Physician History of Present Illness: Pt has been lethargic all day Pt did receive ativan last pm due to agitation Pt is wearing BIPAP - Current Medication List Current Medications: Active Medications Albuterol/Ipratropium (Duoneb -) 1 amp NEB RQID [facility] Last Admin: 10/10/18 20:49 Dose: 1 amp Amlodipine Besylate (Norvasc -) 2.5 mg PO DAILY [facility] Last Admin: 10/10/18 11:09 Dose: 2.5 mg Clopidogrel Bisulfate (Plavix -) 75 mg PO DAILY [facility] Last Admin: 10/10/18 11:10 Dose: 75 mg Escitalopram Oxalate (Lexapro -) 10 mg PO DAILY [facility] Last Admin: 10/10/18 11:10 Dose: 10 mg Guaifenesin (Robitussin -) 10 ml PO Q6H PRN PRN Reason: COUGH Last Admin: 10/09/18 10:26 Dose: 10 ml Piperacillin Sod/Tazobactam (Sod 2.25 gm/ Dextrose) 50 mls @ 100 mls/hr IVPB Q8H-IV [facility]; Protocol Last Admin: 10/10/18 17:53 Dose: 100 mls/hr Azithromycin (Zithromax 500mg Ivpb (Pre-Docked)) 500 mg in 250 mls @ 250 mls/ hr IVPB DAILY [facility] Last Admin: 10/10/18 11:07 Dose: 250 mls/hr Insulin Aspart (Novolog Vial Sliding Scale -) 1 vial SQ TIDAC [facility]; Protocol Last Admin: 10/10/18 16:25 Dose: Not Given Methylprednisolone Sodium Succinate (Solu-Medrol -) 40 mg IVPUSH Q12H [facility] Last Admin: 10/10/18 11:07 Dose: 40 mg Metoprolol Succinate (Toprol Xl -) 50 mg PO DAILY [facility] Last Admin: 10/10/18 11:10 Dose: 50 mg Pantoprazole Sodium (Protonix -) 40 mg PO DAILY [facility] Last Admin: 10/10/18 11:09 Dose: 40 mg Rosuvastatin Calcium (Crestor -) 10 mg PO HS [facility] Last Admin: 10/10/18 21:04 Dose: Not Given - Objective Vital Signs: Vital Signs Temperature 98.4 F 10/10/18 18:00 Pulse Rate 104 H 10/10/18 18:00 Respiratory Rate 18 10/10/18 18:00 Blood Pressure 130/78 10/10/18 18:00 O2 Sat by Pulse Oximetry (%) 97 10/10/18 20:48 Neck: Yes: WNL, Supple Cardiovascular: Yes: Tachycardia Respiratory: Yes: Diminished Gastrointestinal: Yes: WNL, Normal Bowel Sounds, Soft Edema: No Labs: CBC, BMP 10/10/18 07:00 10/10/18 07:00 Problem List - Problems (1) Pneumonia Assessment/Plan: CXR showed b/l pleural effusions and increased b/l airspace opacities Cont IV antibxs Cont nebulizers Cont IV steroids wc are being tapered Cont BIPAP Code(s): J18.9 - PNEUMONIA, UNSPECIFIED ORGANISM (2) Acute on chronic systolic (congestive) heart failure Assessment/Plan: Lasix on hold due to increasing creatinine and decreasing sodium As per cardio Code(s): I50.23 - ACUTE ON CHRONIC SYSTOLIC (CONGESTIVE) HEART FAILURE (3) CKD (chronic kidney disease) Assessment/Plan: Renal consult Code(s): N18.9 - CHRONIC KIDNEY DISEASE, UNSPECIFIED (4) HTN (hypertension) Assessment/Plan: BP stable Cont metoprolol/lisinopril Code(s): I10 - ESSENTIAL (PRIMARY) HYPERTENSION (5) HLD (hyperlipidemia) Assessment/Plan: Cont crestor Code(s): E78.5 - HYPERLIPIDEMIA, UNSPECIFIED (6) Osteoarthritis Code(s): M19.90 - UNSPECIFIED OSTEOARTHRITIS, UNSPECIFIED SITE Qualifiers: Osteoarthritis location: knee Osteoarthritis type: unspecified Laterality : right Qualified Code(s): M17.11 - Unilateral primary osteoarthritis, right knee (7) CAD (coronary artery disease) Code(s): I25.10 - ATHSCL HEART DISEASE OF [place] CORONARY ARTERY W/O ANG PCTRS
[2018-10-11] MEDS ORDERED: PIPERACILLIN/TAZOBACTAM 2.25 GM VIAL IVPB ONE ×3 (01:30→18:42)
[2018-10-11] MEDS ORDERED: DEXTROSE 5%-WATER - 50 ML IVPB ONE ×3 (01:30→18:42)
[2018-10-11] MEDS: PIPERACILLIN/TAZOB 2.25 GM 2.25 GM in DEXTROSE 5%-WATER - 50 ML IVPB SCH ×3 (01:58→18:46)
[2018-10-11 07:10] LABS: BASO % 0.2 % (0-2.0); HEMATOCRIT 29.4 % (32.4-45.2); HEMOGLOBIN 9.6 GM/dL (10.7-15.3); LYMPH % 3.2 % (8-40); MCH 27.2 pg (25.7-33.7); MCHC 32.7 g/dl (32.0-36.0); MEAN CELL VOLUME 83.2 fl (80-96); NEUT % 91.6 % (42.8-82.8); RBC 3.54 M/mm3 (3.60-5.2); RDW 14.4 % (11.6-15.6)
[2018-10-11] MEDS: INSULIN SLIDING SCALE (NOVOLOG) 1 VIAL SQ SCH ×3 (07:13→16:42)
[2018-10-11 07:38] LABS: ALBUMIN 2.2 g/dl (3.4-5.0); BILIRUBIN,TOTAL 0.3 mg/dL (0.2-1); BLOOD UREA NITROGEN 70.5 mg/dL (7-18); CALCIUM 9.3 mg/dL (8.5-10.1); CREATININE 2.8 mg/dL (0.55-1.3); MAGNESIUM 2.2 mg/dL (1.8-2.4); PHOSPHOROUS 6.8 mg/dL (2.5-4.9); POTASSIUM 5.1 mmol/L (3.5-5.1); TOT PROT 6.7 g/dl (6.4-8.2)
[2018-10-11] MEDS: ALBUTEROL SO4 2.5/IPRATROPIUM 0.5 INH SOL 3 ML VIAL.NEB. NEB SCH ×4 (07:40→20:15)
[2018-10-11] MEDS ORDERED: FUROSEMIDE 40 MG/4 ML INJECTABLE VIAL IVPUSH ONE ×2 (11:01)
--- NOTE | 2018-10-11 11:01 | PN ---
Progress Note, Physician History of Present Illness: Pt seen and examined at bedside. She is more awake and alert today. She feels that her breathing is improved. Her son is at bedside and care was discussed with him. - Current Medication List Current Medications: Active Medications Albuterol/Ipratropium (Duoneb -) 1 amp NEB RQID [facility] Last Admin: 10/11/18 07:40 Dose: 1 amp Amlodipine Besylate (Norvasc -) 2.5 mg PO DAILY [facility] Last Admin: 10/10/18 11:09 Dose: 2.5 mg Clopidogrel Bisulfate (Plavix -) 75 mg PO DAILY [facility] Last Admin: 10/10/18 11:10 Dose: 75 mg Escitalopram Oxalate (Lexapro -) 10 mg PO DAILY [facility] Last Admin: 10/10/18 11:10 Dose: 10 mg Guaifenesin (Robitussin -) 10 ml PO Q6H PRN PRN Reason: COUGH Last Admin: 10/09/18 10:26 Dose: 10 ml Piperacillin Sod/Tazobactam (Sod 2.25 gm/ Dextrose) 50 mls @ 100 mls/hr IVPB Q8H-IV [facility]; Protocol Last Admin: 10/11/18 01:58 Dose: 100 mls/hr Azithromycin (Zithromax 500mg Ivpb (Pre-Docked)) 500 mg in 250 mls @ 250 mls/ hr IVPB DAILY [facility] Last Admin: 10/10/18 11:07 Dose: 250 mls/hr Insulin Aspart (Novolog Vial Sliding Scale -) 1 vial SQ TIDAC [facility]; Protocol Last Admin: 10/11/18 07:13 Dose: 4 units Methylprednisolone Sodium Succinate (Solu-Medrol -) 40 mg IVPUSH Q12H [facility] Last Admin: 10/10/18 23:24 Dose: 40 mg Metoprolol Succinate (Toprol Xl -) 50 mg PO DAILY [facility] Last Admin: 10/10/18 11:10 Dose: 50 mg Pantoprazole Sodium (Protonix -) 40 mg PO DAILY [facility] Last Admin: 10/10/18 11:09 Dose: 40 mg Rosuvastatin Calcium (Crestor -) 10 mg PO HS [facility] Last Admin: 10/10/18 21:04 Dose: Not Given - Objective Vital Signs: Vital Signs Temperature 98.6 F 10/11/18 06:00 Pulse Rate 100 H 10/11/18 06:00 Respiratory Rate 18 10/11/18 06:00 Blood Pressure 147/94 10/11/18 06:00 O2 Sat by Pulse Oximetry (%) 98 10/11/18 06:34 Constitutional: Yes: Calm Eyes: Yes: Conjunctiva Clear HENT: Yes: Atraumatic Cardiovascular: Yes: S1, S2 Respiratory: Yes: On Nasal O2, Rhonchi Gastrointestinal: Yes: Soft Genitourinary: Yes: Hernandez Present Edema: Yes Edema: LUE: Trace, RUE: Trace, LLE: 1+, RLE: 1+ Neurological: Yes: Oriented Psychiatric: Yes: Oriented Labs: CBC, BMP 10/11/18 06:05 10/11/18 06:05 Problem List - Problems (1) Acute on chronic systolic (congestive) heart failure Code(s): I50.23 - ACUTE ON CHRONIC SYSTOLIC (CONGESTIVE) HEART FAILURE (2) CHF exacerbation Code(s): I50.9 - HEART FAILURE, UNSPECIFIED (3) CHF (congestive heart failure) Code(s): I50.9 - HEART FAILURE, UNSPECIFIED Qualifiers: Heart failure type: unspecified Heart failure chronicity: unspecified Qualified Code(s): I50.9 - Heart failure, unspecified (4) CKD (chronic kidney disease) Code(s): N18.9 - CHRONIC KIDNEY DISEASE, UNSPECIFIED Assessment/Plan Current Medications Generic Name Dose Route Start Last Admin Trade Name Freq PRN Reason Stop Dose Admin Albuterol/Ipratropium 1 amp 10/09/18 16:00 10/11/18 07:40 Duoneb - NEB 1 amp RQID [facility] Administration Amlodipine Besylate 2.5 mg 10/10/18 10:00 10/10/18 11:09 Norvasc - PO 2.5 mg DAILY [facility] Administration Clopidogrel Bisulfate 75 mg 10/02/18 16:45 10/10/18 11:10 Plavix - PO 75 mg DAILY [facility] Administration Escitalopram Oxalate 10 mg 10/02/18 17:00 10/10/18 11:10 Lexapro - PO 10 mg DAILY [facility] Administration Guaifenesin 10 ml 10/08/18 11:16 10/09/18 10:26 Robitussin - PO 10 ml Q6H PRN Administration COUGH Piperacillin Sod/Tazobactam 50 mls @ 100 mls/hr 10/06/18 15:30 10/11/18 01:58 Sod 2.25 gm/ Dextrose IVPB 100 mls/hr Q8H-IV [facility] Administration Protocol Azithromycin 500 mg in 250 mls @ 250 mls/hr 10/07/18 10:00 10/10/18 11:07 Zithromax 500mg Ivpb (Pre-Docked) IVPB 250 mls/hr DAILY [facility] Administration Insulin Aspart 1 vial 10/04/18 17:15 10/11/18 07:13 Novolog Vial Sliding Scale - SQ 4 units TIDAC [facility] Administration Protocol Methylprednisolone Sodium Succinate 40 mg 10/08/18 11:30 10/10/18 23:24 Solu-Medrol - IVPUSH 40 mg Q12H [facility] Administration Metoprolol Succinate 50 mg 10/09/18 09:21 10/10/18 11:10 Toprol Xl - PO 50 mg DAILY [facility] Administration Pantoprazole Sodium 40 mg 10/04/18 17:00 10/10/18 11:09 Protonix - PO 40 mg DAILY [facility] Administration Rosuvastatin Calcium 10 mg 10/02/18 22:00 10/10/18 21:04 Crestor - PO Not Given HS [facility] #JACK #CKD #Hyponatremia (hypervolemic) #CHF exacerbation #Hypertension #CAD #DM Plan - will give another dose of lasix today - cont with bipap - sodium improving - cont to monitor renal function - Fluid restriction of 1L daily - Low salt diet
--- NOTE | 2018-10-11 11:08 | PN ---
Progress Note (short form) - Note Progress Note: s: no chest pain, edema, dizziness, lightheadedness Current Medications Generic Name Dose Route Start Last Admin Trade Name Freq PRN Reason Stop Dose Admin Albuterol/Ipratropium 1 amp 10/09/18 16:00 10/11/18 07:40 Duoneb - NEB 1 amp RQID LEONIE Administration Amlodipine Besylate 2.5 mg 10/10/18 10:00 10/10/18 11:09 Norvasc - PO 2.5 mg DAILY LEONIE Administration Clopidogrel Bisulfate 75 mg 10/02/18 16:45 10/10/18 11:10 Plavix - PO 75 mg DAILY LEONIE Administration Escitalopram Oxalate 10 mg 10/02/18 17:00 10/10/18 11:10 Lexapro - PO 10 mg DAILY LEONIE Administration Guaifenesin 10 ml 10/08/18 11:16 10/09/18 10:26 Robitussin - PO 10 ml Q6H PRN Administration COUGH Piperacillin Sod/Tazobactam 50 mls @ 100 mls/hr 10/06/18 15:30 10/11/18 01:58 Sod 2.25 gm/ Dextrose IVPB 100 mls/hr Q8H-IV LEONIE Administration Protocol Azithromycin 500 mg in 250 mls @ 250 mls/hr 10/07/18 10:00 10/10/18 11:07 Zithromax 500mg Ivpb (Pre-Docked) IVPB 250 mls/hr DAILY LEONIE Administration Insulin Aspart 1 vial 10/04/18 17:15 10/11/18 07:13 Novolog Vial Sliding Scale - SQ 4 units TIDAC LEONIE Administration Protocol Methylprednisolone Sodium Succinate 40 mg 10/08/18 11:30 10/10/18 23:24 Solu-Medrol - IVPUSH 40 mg Q12H LEONIE Administration Metoprolol Succinate 50 mg 10/09/18 09:21 10/10/18 11:10 Toprol Xl - PO 50 mg DAILY LEONIE Administration Pantoprazole Sodium 40 mg 10/04/18 17:00 10/10/18 11:09 Protonix - PO 40 mg DAILY LEONIE Administration Rosuvastatin Calcium 10 mg 10/02/18 22:00 10/10/18 21:04 Crestor - PO Not Given HS LEONIE Sevelamer Carbonate 800 mg 10/11/18 12:00 Renvela - PO TIDCM LEONIE Vital Signs Period Temp Pulse Resp BP Sys/Vasquez Pulse Ox Last 24 Hr 97.5 F-98.9 F 95-113 18-20 125-159/69-115 96-98 Constitutional: Yes: No Distress, Calm Eyes: No: Sclera Icterus HENT: No: Nasal Congestion Cardiovascular: Yes: Regular Rate and Rhythm, JVD, S1, S2, Other (PMI non diplaced). No: Gallop, Murmur Respiratory: Yes: Rales (diffuse crackles) No: Accessory Muscle Use Gastrointestinal: Yes: Normal Bowel Sounds, Soft. No: Tenderness Extremities: No: Cold, Cyanosis Edema: No Integumentary: No: Jaundice Neurological: Yes: Alert, Oriented (x3) Psychiatric: No: Agitated CBC, BMP 10/11/18 06:05 10/11/18 06:05 echo: LVSF appears mldly reduced, 40-45%. nl RV. mild MR. tele: sinus tachy, occ pvcs Assessment/Plan Acute on chronic systolic CHF: -after diuresis BUN/Creat worsening, hyponatremia worsening. Thus lasix stopped as it does not appear she is vol overloaded. More likely her pulm findings are pna related. -cont bb. marjan held for jack. -had another trial dose of iv lasix 10/10 and today her bun/cr up, cont to hold diuresis for now. Suspected underlying CAD: -no signs acs -pt/family have declined cath due to MIKE risks (see prior dr welsh notes) JACK on CKD: -likely due to diuresis, cont to hold lasix and monitor cr trend htn: -cont current meds NSVT: -cont bb -sinus tachycardia noted on tele - likely in setting of PNA Altered MS: -head ct w/o acute changes -Likely due to Ativan, improved today
[2018-10-11] MEDS: methylPREDNISolone NA SUCC 40 MG/1 ML VIAL IVPUSH SCH ×2 (11:23→23:02)
[2018-10-11] MEDS: metoPROLOL SUCCINATE 25 MG TAB.SR.24H (FP) PO SCH (11:24)
[2018-10-11] MEDS: amLODIPine BESYLATE 2.5 MG TABLET (FP) PO SCH (11:24)
[2018-10-11] MEDS: PANTOPRAZOLE 40 MG TABLET (FP) PO SCH (11:24)
[2018-10-11] MEDS: ESCITALOPRAM OXALATE 10 MG TABLET (FP) PO SCH (11:24)
[2018-10-11] MEDS: CLOPIDOGREL BISULFATE 75 MG TABLET (FP) PO SCH (11:24)
--- NOTE | 2018-10-11 12:11 | PN ---
Progress Note (short form) - Note Progress Note: covering for Dr gaytan patient seen and examined in bed family at bedside POC discussed with family patient alert / oriented / answers questions appropriately faimly states much improved from yesterday Vital Signs Period Temp Pulse Resp BP Sys/Vasquez Pulse Ox Last 24 Hr 97.5 F-98.9 F 96-113 18-20 130-159/70-115 96-98 in bed HOB elevated NAD neck -JVD heart S1/S2 lung clear bilat with decreased BS at bases abd soft non tender Ext no edema CBC, BMP 10/11/18 06:05 10/11/18 06:05 Microbiology 10/06/18 16:10 Blood - Peripheral Venous Blood Culture - Preliminary NO GROWTH OBTAINED AFTER 96 HOURS, INCUBATION TO CONTINUE FOR 1 DAYS. 10/06/18 16:30 Blood - Peripheral Venous Blood Culture - Preliminary NO GROWTH OBTAINED AFTER 96 HOURS, INCUBATION TO CONTINUE FOR 1 DAYS. 10/07/18 18:00 Urine - Urine Clean Catch Urine Culture - Final Enterococcus Faecium 10/07/18 18:00 Sputum - Expectorated Gram Stain - Final 10/07/18 18:00 Sputum - Expectorated Sputum Culture - Final NORMAL RESPIRATORY ANDERS 10/07/18 18:00 Urine For Antigen Detection Legionella Antigen - Final 10/07/18 18:00 Urine For Antigen Detection Streptococcus pneumoniae Antigen (M - Final Active Medications Albuterol/Ipratropium (Duoneb -) 1 amp NEB RQID [facility] Last Admin: 10/11/18 07:40 Dose: 1 amp Amlodipine Besylate (Norvasc -) 2.5 mg PO DAILY [facility] Last Admin: 10/11/18 11:24 Dose: 2.5 mg Clopidogrel Bisulfate (Plavix -) 75 mg PO DAILY [facility] Last Admin: 10/11/18 11:24 Dose: 75 mg Escitalopram Oxalate (Lexapro -) 10 mg PO DAILY [facility] Last Admin: 10/11/18 11:24 Dose: 10 mg Guaifenesin (Robitussin -) 10 ml PO Q6H PRN PRN Reason: COUGH Last Admin: 10/09/18 10:26 Dose: 10 ml Piperacillin Sod/Tazobactam (Sod 2.25 gm/ Dextrose) 50 mls @ 100 mls/hr IVPB Q8H-IV LEONIE; Protocol Last Admin: 10/11/18 11:23 Dose: 100 mls/hr Azithromycin (Zithromax 500mg Ivpb (Pre-Docked)) 500 mg in 250 mls @ 250 mls/ hr IVPB DAILY [facility] Last Admin: 10/10/18 11:07 Dose: 250 mls/hr Insulin Aspart (Novolog Vial Sliding Scale -) 1 vial SQ TIDAC [facility]; Protocol Last Admin: 10/11/18 11:39 Dose: 4 units Methylprednisolone Sodium Succinate (Solu-Medrol -) 40 mg IVPUSH Q12H [facility] Last Admin: 10/11/18 11:23 Dose: 40 mg Metoprolol Succinate (Toprol Xl -) 50 mg PO DAILY [facility] Last Admin: 10/11/18 11:24 Dose: 50 mg Pantoprazole Sodium (Protonix -) 40 mg PO DAILY [facility] Last Admin: 10/11/18 11:24 Dose: 40 mg Rosuvastatin Calcium (Crestor -) 10 mg PO HS [facility] Last Admin: 10/10/18 21:04 Dose: Not Given Sevelamer Carbonate (Renvela -) 800 mg PO TIDCM [facility] Assessment/Plan # Acute on chronic systolic CHF: after diuresis BUN/Creat worsening, hyponatremia worsening. Thus lasix stopped as it does not appear she is vol overloaded. marjan held for jack. Lasix on hold -- given PRN per Renal # CAD - probable pt/family have declined cath in the past - per Cardio note # JACK on CKD: aggravated by IV lasix cont to hold lasix and monitor cr trend # HTN cont home meds # Altered MS: per family back to baseline probably diue to ativan - Problem List - Problems (1) Acute on chronic systolic (congestive) heart failure Code(s): I50.23 - ACUTE ON CHRONIC SYSTOLIC (CONGESTIVE) HEART FAILURE (2) CVA (cerebral vascular accident) Code(s): I63.9 - CEREBRAL INFARCTION, UNSPECIFIED (3) Pneumonia Code(s): J18.9 - PNEUMONIA, UNSPECIFIED ORGANISM (4) Acute renal failure (ARF) Code(s): N17.9 - ACUTE KIDNEY FAILURE, UNSPECIFIED Qualifiers: Acute renal failure type: unspecified Qualified Code(s): N17.9 - Acute kidney failure, unspecified (5) CAD (coronary artery disease) Code(s): I25.10 - ATHSCL HEART DISEASE OF [place] CORONARY ARTERY W/O ANG PCTRS (6) CKD (chronic kidney disease) Code(s): N18.9 - CHRONIC KIDNEY DISEASE, UNSPECIFIED (7) Chronic kidney disease Code(s): N18.9 - CHRONIC KIDNEY DISEASE, UNSPECIFIED Qualifiers: Chronic kidney disease stage: unspecified stage Qualified Code(s): N18.9 - Chronic kidney disease, unspecified (8) HLD (hyperlipidemia) Code(s): E78.5 - HYPERLIPIDEMIA, UNSPECIFIED (9) HTN (hypertension) Code(s): I10 - ESSENTIAL (PRIMARY) HYPERTENSION (10) Hyponatremia Code(s): E87.1 - HYPO-OSMOLALITY AND HYPONATREMIA (11) Osteoarthritis Code(s): M19.90 - UNSPECIFIED OSTEOARTHRITIS, UNSPECIFIED SITE Qualifiers: Osteoarthritis location: knee Osteoarthritis type: unspecified Laterality : right Qualified Code(s): M17.11 - Unilateral primary osteoarthritis, right knee (12) Pneumonia Code(s): J18.9 - PNEUMONIA, UNSPECIFIED ORGANISM
[2018-10-11] MEDS: AZITHROMYCIN IVPB 500 MG/250 ML BAG IVPB SCH (12:28)
[2018-10-11] MEDS: SEVELAMER CARBONATE 800 MG TAB (FP) PO SCH ×2 (12:28→17:04)
--- NOTE | 2018-10-11 13:40 | PN ---
Progress Note (short form) - Note Progress Note: PULMONARY Still with some shortness of breath, cough and wheezing but feeling better. No fevers or chills. Vital Signs Period Temp Pulse Resp BP Sys/Vasquez Pulse Ox Last 24 Hr 97.5 F-98.9 F 96-113 18-20 130-159/70-115 96-98 Gen: NAD at rest Heart: RRR Lung: scattered rhonchi, wheezes Abd: soft, nontender Ext: no edema CBC, BMP 10/11/18 06:05 10/11/18 06:05 Active Medications Albuterol/Ipratropium (Duoneb -) 1 amp NEB RQID [facility] Last Admin: 10/11/18 11:15 Dose: 1 amp Amlodipine Besylate (Norvasc -) 2.5 mg PO DAILY [facility] Last Admin: 10/11/18 11:24 Dose: 2.5 mg Clopidogrel Bisulfate (Plavix -) 75 mg PO DAILY [facility] Last Admin: 10/11/18 11:24 Dose: 75 mg Escitalopram Oxalate (Lexapro -) 10 mg PO DAILY [facility] Last Admin: 10/11/18 11:24 Dose: 10 mg Guaifenesin (Robitussin -) 10 ml PO Q6H PRN PRN Reason: COUGH Last Admin: 10/09/18 10:26 Dose: 10 ml Piperacillin Sod/Tazobactam (Sod 2.25 gm/ Dextrose) 50 mls @ 100 mls/hr IVPB Q8H-IV [facility]; Protocol Last Admin: 10/11/18 11:23 Dose: 100 mls/hr Azithromycin (Zithromax 500mg Ivpb (Pre-Docked)) 500 mg in 250 mls @ 250 mls/ hr IVPB DAILY [facility] Last Admin: 10/11/18 12:28 Dose: 250 mls/hr Insulin Aspart (Novolog Vial Sliding Scale -) 1 vial SQ TIDAC [facility]; Protocol Last Admin: 10/11/18 11:39 Dose: 4 units Methylprednisolone Sodium Succinate (Solu-Medrol -) 40 mg IVPUSH Q12H [facility] Last Admin: 10/11/18 11:23 Dose: 40 mg Metoprolol Succinate (Toprol Xl -) 50 mg PO DAILY [facility] Last Admin: 10/11/18 11:24 Dose: 50 mg Pantoprazole Sodium (Protonix -) 40 mg PO DAILY [facility] Last Admin: 10/11/18 11:24 Dose: 40 mg Rosuvastatin Calcium (Crestor -) 10 mg PO HS [facility] Last Admin: 10/10/18 21:04 Dose: Not Given Sevelamer Carbonate (Renvela -) 800 mg PO TIDCM [facility] Last Admin: 10/11/18 12:28 Dose: 800 mg A/P Acute on Chronic Systolic Heart Failure r/o Pneumonia Acute on Chronic Renal Failure HTN DM Hyperlipidemia h/o CVA - continue empiric antibiotics - continue medrol at current dose - inhaled bronchodilators - BiPAP as needed - O2 to keep spO2 >90% - DVT prophylaxis
[2018-10-11 16:54] LABS: ANISOCYTOSIS 0; MACROCYTOSIS 0; PLATELET ESTIMATE INCREASED
[2018-10-11 16:55] LABS: PLATELET COUNT 705 K/MM3 (134-434)
[2018-10-11] MEDS ORDERED: PT OWN MED DRAWER 7, Y5N ONE (18:53)
[2018-10-11] MEDS: ROSUVASTATIN CA 10 MG TABLET (FP) PO SCH (21:07)
[2018-10-12] MEDS ORDERED: PIPERACILLIN/TAZOBACTAM 2.25 GM VIAL IVPB ONE ×3 (01:21→17:08)
[2018-10-12] MEDS ORDERED: DEXTROSE 5%-WATER - 50 ML IVPB ONE ×3 (01:21→17:08)
[2018-10-12] MEDS: PIPERACILLIN/TAZOB 2.25 GM 2.25 GM in DEXTROSE 5%-WATER - 50 ML IVPB SCH ×3 (01:52→17:21)
[2018-10-12] MEDS: INSULIN SLIDING SCALE (NOVOLOG) 1 VIAL SQ SCH ×3 (06:35→17:20)
[2018-10-12] MEDS: ALBUTEROL SO4 2.5/IPRATROPIUM 0.5 INH SOL 3 ML VIAL.NEB. NEB SCH ×4 (07:45→21:11)
[2018-10-12] MEDS: PANTOPRAZOLE 40 MG TABLET (FP) PO SCH (10:16)
[2018-10-12] MEDS: ESCITALOPRAM OXALATE 10 MG TABLET (FP) PO SCH (10:16)
[2018-10-12] MEDS: CLOPIDOGREL BISULFATE 75 MG TABLET (FP) PO SCH (10:16)
[2018-10-12] MEDS: metoPROLOL SUCCINATE 25 MG TAB.SR.24H (FP) PO SCH (10:17)
[2018-10-12] MEDS: amLODIPine BESYLATE 2.5 MG TABLET (FP) PO SCH (10:17)
[2018-10-12] MEDS: SEVELAMER CARBONATE 800 MG TAB (FP) PO SCH ×3 (10:17→17:20)
[2018-10-12] MEDS: AZITHROMYCIN IVPB 500 MG/250 ML BAG IVPB SCH (10:18)
--- NOTE | 2018-10-12 10:28 | PN ---
Progress Note (short form) - Note Progress Note: s: no chest pain, edema, dizziness, lightheadedness Current Medications Generic Name Dose Route Start Last Admin Trade Name Freq PRN Reason Stop Dose Admin Albuterol/Ipratropium 1 amp 10/09/18 16:00 10/12/18 07:45 Duoneb - NEB 1 amp RQID LEONIE Administration Amlodipine Besylate 5 mg 10/12/18 10:00 10/12/18 10:17 Norvasc - PO 5 mg DAILY LEONIE Administration Clopidogrel Bisulfate 75 mg 10/02/18 16:45 10/12/18 10:16 Plavix - PO 75 mg DAILY LEONIE Administration Escitalopram Oxalate 10 mg 10/02/18 17:00 10/12/18 10:16 Lexapro - PO 10 mg DAILY LEONIE Administration Guaifenesin 10 ml 10/08/18 11:16 10/09/18 10:26 Robitussin - PO 10 ml Q6H PRN Administration COUGH Piperacillin Sod/Tazobactam 50 mls @ 100 mls/hr 10/06/18 15:30 10/12/18 10:17 Sod 2.25 gm/ Dextrose IVPB 100 mls/hr Q8H-IV LEONIE Administration Protocol Azithromycin 500 mg in 250 mls @ 250 mls/hr 10/07/18 10:00 10/12/18 10:18 Zithromax 500mg Ivpb (Pre-Docked) IVPB 250 mls/hr DAILY LEONIE Administration Insulin Aspart 1 vial 10/04/18 17:15 10/12/18 06:35 Novolog Vial Sliding Scale - SQ 4 units TIDAC LEONIE Administration Protocol Methylprednisolone Sodium Succinate 40 mg 10/08/18 11:30 10/11/18 23:02 Solu-Medrol - IVPUSH 40 mg Q12H LEONIE Administration Metoprolol Succinate 50 mg 10/09/18 09:21 10/12/18 10:17 Toprol Xl - PO 50 mg DAILY LEONIE Administration Pantoprazole Sodium 40 mg 10/04/18 17:00 10/12/18 10:16 Protonix - PO 40 mg DAILY LEONIE Administration Rosuvastatin Calcium 10 mg 10/02/18 22:00 10/11/18 21:07 Crestor - PO 10 mg HS LEONIE Administration Sevelamer Carbonate 800 mg 10/11/18 12:00 10/12/18 10:17 Renvela - PO 800 mg TIDCM LEONIE Administration Vital Signs Period Temp Pulse Resp BP Sys/Vasquez Pulse Ox Last 24 Hr 97.8 F-98.2 F 97-108 19-20 132-170/89-95 94 Constitutional: Yes: No Distress, Calm Eyes: No: Sclera Icterus HENT: No: Nasal Congestion Cardiovascular: Yes: Regular Rate and Rhythm, JVD, S1, S2, Other (PMI non diplaced). No: Gallop, Murmur Respiratory: Yes: scattered rhonchi No: Accessory Muscle Use Gastrointestinal: Yes: Normal Bowel Sounds, Soft. No: Tenderness Extremities: No: Cold, Cyanosis Edema: No Integumentary: No: Jaundice Neurological: Yes: Alert, Oriented (x3) Psychiatric: No: Agitated CBC, BMP 10/11/18 06:05 10/11/18 06:05 echo: LVSF appears mldly reduced, 40-45%. nl RV. mild MR. tele: sr, sinus tachy, occ pvcs Assessment/Plan Acute on chronic systolic CHF: -after diuresis BUN/Creat worsening, hyponatremia worsening. Thus lasix stopped as it does not appear she is vol overloaded. More likely her pulm findings are pna related. -cont bb. marjan held for jack. -had another trial dose of iv lasix 10/10 and today her bun/cr up, cont to hold diuresis for now. Suspected underlying CAD: -no signs acs -pt/family have declined cath due to MIKE risks (see prior dr welsh notes) JACK on CKD: -likely due to diuresis, cont to hold lasix and monitor cr trend htn: -elevated, will increase norvasc dose to 5 NSVT: -cont bb -sinus tachycardia noted on tele - likely in setting of PNA Altered MS: -head ct w/o acute changes -Likely due to Ativan, improved today
--- NOTE | 2018-10-12 12:06 | PN ---
Progress Note, Physician History of Present Illness: Pt seen and examined at bedside. She is out of bed to chair. She appears comfortable. She feels that her breathing is improved. - Current Medication List Current Medications: Active Medications Albuterol/Ipratropium (Duoneb -) 1 amp NEB RQID [facility] Last Admin: 10/12/18 07:45 Dose: 1 amp Amlodipine Besylate (Norvasc -) 5 mg PO DAILY [facility] Last Admin: 10/12/18 10:17 Dose: 5 mg Clopidogrel Bisulfate (Plavix -) 75 mg PO DAILY [facility] Last Admin: 10/12/18 10:16 Dose: 75 mg Escitalopram Oxalate (Lexapro -) 10 mg PO DAILY [facility] Last Admin: 10/12/18 10:16 Dose: 10 mg Guaifenesin (Robitussin -) 10 ml PO Q6H PRN PRN Reason: COUGH Last Admin: 10/09/18 10:26 Dose: 10 ml Piperacillin Sod/Tazobactam (Sod 2.25 gm/ Dextrose) 50 mls @ 100 mls/hr IVPB Q8H-IV [facility]; Protocol Last Admin: 10/12/18 10:17 Dose: 100 mls/hr Azithromycin (Zithromax 500mg Ivpb (Pre-Docked)) 500 mg in 250 mls @ 250 mls/ hr IVPB DAILY [facility] Last Admin: 10/12/18 10:18 Dose: 250 mls/hr Insulin Aspart (Novolog Vial Sliding Scale -) 1 vial SQ TIDAC [facility]; Protocol Last Admin: 10/12/18 11:53 Dose: 4 units Methylprednisolone Sodium Succinate (Solu-Medrol -) 40 mg IVPUSH Q12H [facility] Last Admin: 10/11/18 23:02 Dose: 40 mg Metoprolol Succinate (Toprol Xl -) 50 mg PO DAILY [facility] Last Admin: 10/12/18 10:17 Dose: 50 mg Pantoprazole Sodium (Protonix -) 40 mg PO DAILY [facility] Last Admin: 10/12/18 10:16 Dose: 40 mg Rosuvastatin Calcium (Crestor -) 10 mg PO HS [facility] Last Admin: 10/11/18 21:07 Dose: 10 mg Sevelamer Carbonate (Renvela -) 800 mg PO TIDCM [facility] Last Admin: 10/12/18 10:17 Dose: 800 mg - Objective Vital Signs: Vital Signs Temperature 98.0 F 10/12/18 06:00 Pulse Rate 102 H 10/12/18 06:00 Respiratory Rate 20 10/12/18 06:00 Blood Pressure 170/90 10/12/18 06:00 O2 Sat by Pulse Oximetry (%) 94 L 10/11/18 20:31 Constitutional: Yes: Calm Eyes: Yes: Conjunctiva Clear HENT: Yes: Atraumatic Cardiovascular: Yes: S1, S2 Respiratory: Yes: On Nasal O2, Wheezes Gastrointestinal: Yes: Soft Genitourinary: Yes: Hernandez Present Extremities: Yes: WNL Edema: No Neurological: Yes: Oriented Psychiatric: Yes: Oriented Labs: CBC, BMP 10/11/18 06:05 10/11/18 06:05 Problem List - Problems (1) Acute on chronic systolic (congestive) heart failure Code(s): I50.23 - ACUTE ON CHRONIC SYSTOLIC (CONGESTIVE) HEART FAILURE (2) CHF exacerbation Code(s): I50.9 - HEART FAILURE, UNSPECIFIED (3) CHF (congestive heart failure) Code(s): I50.9 - HEART FAILURE, UNSPECIFIED Qualifiers: Heart failure type: unspecified Heart failure chronicity: unspecified Qualified Code(s): I50.9 - Heart failure, unspecified (4) CKD (chronic kidney disease) Code(s): N18.9 - CHRONIC KIDNEY DISEASE, UNSPECIFIED Assessment/Plan Current Medications Generic Name Dose Route Start Last Admin Trade Name Freq PRN Reason Stop Dose Admin Albuterol/Ipratropium 1 amp 10/09/18 16:00 10/12/18 07:45 Duoneb - NEB 1 amp RQID LEONIE Administration Amlodipine Besylate 5 mg 10/12/18 10:00 10/12/18 10:17 Norvasc - PO 5 mg DAILY [facility] Administration Clopidogrel Bisulfate 75 mg 10/02/18 16:45 10/12/18 10:16 Plavix - PO 75 mg DAILY [facility] Administration Escitalopram Oxalate 10 mg 10/02/18 17:00 10/12/18 10:16 Lexapro - PO 10 mg DAILY [facility] Administration Guaifenesin 10 ml 10/08/18 11:16 10/09/18 10:26 Robitussin - PO 10 ml Q6H PRN Administration COUGH Piperacillin Sod/Tazobactam 50 mls @ 100 mls/hr 10/06/18 15:30 10/12/18 10:17 Sod 2.25 gm/ Dextrose IVPB 100 mls/hr Q8H-IV [facility]ONIE Administration Protocol Azithromycin 500 mg in 250 mls @ 250 mls/hr 10/07/18 10:00 10/12/18 10:18 Zithromax 500mg Ivpb (Pre-Docked) IVPB 250 mls/hr DAILY [facility] Administration Insulin Aspart 1 vial 10/04/18 17:15 10/12/18 11:53 Novolog Vial Sliding Scale - SQ 4 units TIDAC LEONIE Administration Protocol Methylprednisolone Sodium Succinate 40 mg 10/08/18 11:30 10/11/18 23:02 Solu-Medrol - IVPUSH 40 mg Q12H [facility]ONIE Administration Metoprolol Succinate 50 mg 10/09/18 09:21 10/12/18 10:17 Toprol Xl - PO 50 mg DAILY [facility] Administration Pantoprazole Sodium 40 mg 10/04/18 17:00 10/12/18 10:16 Protonix - PO 40 mg DAILY [facility] Administration Rosuvastatin Calcium 10 mg 10/02/18 22:00 10/11/18 21:07 Crestor - PO 10 mg HS LEONIE Administration Sevelamer Carbonate 800 mg 10/11/18 12:00 10/12/18 10:17 Renvela - PO 800 mg TIDCM LEONIE Administration #JACK #CKD #Hyponatremia (hypervolemic) #CHF exacerbation #Hypertension #CAD #DM #PNA Plan - check bmp, ordered labs, nurse will call me with results - volume status appears stable - cont with bipap - sodium improving - cont to monitor renal function - Fluid restriction of 1L daily - Low salt diet - discussed with family
[2018-10-12] MEDS: methylPREDNISolone NA SUCC 40 MG/1 ML VIAL IVPUSH SCH (13:05)
[2018-10-12 13:30] LABS: BLOOD UREA NITROGEN 75.8 mg/dL (7-18); CALCIUM 9.2 mg/dL (8.5-10.1); CREATININE 2.9 mg/dL (0.55-1.3); POTASSIUM 4.9 mmol/L (3.5-5.1)
--- NOTE | 2018-10-12 13:51 | PN ---
Progress Note (short form) - Note Progress Note: PULMONARY Breathing and cough improving. No fevers or chills. Vital Signs Period Temp Pulse Resp BP Sys/Vasquez Pulse Ox Last 24 Hr 97.8 F-98.2 F 95-102 20-20 144-170/77-95 94 Gen: NAD at rest Heart: RRR Lung: less rhonchi, wheezes Abd: soft, nontender Ext: no edema CBC, BMP 10/11/18 06:05 10/12/18 12:45 Active Medications Albuterol/Ipratropium (Duoneb -) 1 amp NEB RQID [facility] Last Admin: 10/12/18 07:45 Dose: 1 amp Amlodipine Besylate (Norvasc -) 5 mg PO DAILY [facility] Last Admin: 10/12/18 10:17 Dose: 5 mg Clopidogrel Bisulfate (Plavix -) 75 mg PO DAILY [facility] Last Admin: 10/12/18 10:16 Dose: 75 mg Escitalopram Oxalate (Lexapro -) 10 mg PO DAILY [facility] Last Admin: 10/12/18 10:16 Dose: 10 mg Guaifenesin (Robitussin -) 10 ml PO Q6H PRN PRN Reason: COUGH Last Admin: 10/09/18 10:26 Dose: 10 ml Piperacillin Sod/Tazobactam (Sod 2.25 gm/ Dextrose) 50 mls @ 100 mls/hr IVPB Q8H-IV [facility]; Protocol Last Admin: 10/12/18 10:17 Dose: 100 mls/hr Azithromycin (Zithromax 500mg Ivpb (Pre-Docked)) 500 mg in 250 mls @ 250 mls/ hr IVPB DAILY [facility] Last Admin: 10/12/18 10:18 Dose: 250 mls/hr Insulin Aspart (Novolog Vial Sliding Scale -) 1 vial SQ TIDAC [facility]; Protocol Last Admin: 10/12/18 11:53 Dose: 4 units Methylprednisolone Sodium Succinate (Solu-Medrol -) 40 mg IVPUSH Q12H [facility] Last Admin: 10/12/18 13:05 Dose: 40 mg Metoprolol Succinate (Toprol Xl -) 50 mg PO DAILY [facility] Last Admin: 10/12/18 10:17 Dose: 50 mg Pantoprazole Sodium (Protonix -) 40 mg PO DAILY [facility] Last Admin: 10/12/18 10:16 Dose: 40 mg Rosuvastatin Calcium (Crestor -) 10 mg PO HS [facility] Last Admin: 10/11/18 21:07 Dose: 10 mg Sevelamer Carbonate (Renvela -) 800 mg PO TIDCM [facility] Last Admin: 10/12/18 13:04 Dose: 800 mg Sodium Chloride (Sodium Chloride Tablet -) 1 gm PO ONCE ONE Stop: 10/12/18 14:01 A/P Acute on Chronic Systolic Heart Failure r/o Pneumonia Acute on Chronic Renal Failure HTN DM Hyperlipidemia h/o CVA - continue empiric antibiotics - will change steroids to PO prednisone - inhaled bronchodilators - BiPAP as needed - O2 to keep spO2 >90% - DVT prophylaxis
[2018-10-12] MEDS ORDERED: SODIUM CHLORIDE 1 GM TABLET PO ONE (14:00)
[2018-10-12] MEDS: guaiFENesin 200 MG/10 ML 10 ML UNIT-DOSE CUPS PO PRN (17:20)
--- NOTE | 2018-10-12 20:54 | PN ---
Progress Note, Physician History of Present Illness: Pt sitting up in chair Awake and back to baseline - Current Medication List Current Medications: Active Medications Albuterol/Ipratropium (Duoneb -) 1 amp NEB RQID [facility] Last Admin: 10/12/18 16:20 Dose: 1 amp Amlodipine Besylate (Norvasc -) 5 mg PO DAILY [facility] Last Admin: 10/12/18 10:17 Dose: 5 mg Clopidogrel Bisulfate (Plavix -) 75 mg PO DAILY [facility] Last Admin: 10/12/18 10:16 Dose: 75 mg Escitalopram Oxalate (Lexapro -) 10 mg PO DAILY [facility] Last Admin: 10/12/18 10:16 Dose: 10 mg Guaifenesin (Robitussin -) 10 ml PO Q6H PRN PRN Reason: COUGH Last Admin: 10/12/18 17:20 Dose: 10 ml Piperacillin Sod/Tazobactam (Sod 2.25 gm/ Dextrose) 50 mls @ 100 mls/hr IVPB Q8H-IV [facility]; Protocol Last Admin: 10/12/18 17:21 Dose: 100 mls/hr Azithromycin (Zithromax 500mg Ivpb (Pre-Docked)) 500 mg in 250 mls @ 250 mls/ hr IVPB DAILY [facility] Last Admin: 10/12/18 10:18 Dose: 250 mls/hr Insulin Aspart (Novolog Vial Sliding Scale -) 1 vial SQ TIDAC [facility]; Protocol Last Admin: 10/12/18 17:20 Dose: 4 units Metoprolol Succinate (Toprol Xl -) 50 mg PO DAILY [facility] Last Admin: 10/12/18 10:17 Dose: 50 mg Pantoprazole Sodium (Protonix -) 40 mg PO DAILY [facility] Last Admin: 10/12/18 10:16 Dose: 40 mg Prednisone (Deltasone -) 40 mg PO DAILY [facility] Rosuvastatin Calcium (Crestor -) 10 mg PO HS [facility] Last Admin: 10/11/18 21:07 Dose: 10 mg Sevelamer Carbonate (Renvela -) 800 mg PO TIDCM [facility] Last Admin: 10/12/18 17:20 Dose: 800 mg - Objective Vital Signs: Vital Signs Temperature 98.2 F 10/12/18 20:41 Pulse Rate 94 H 10/12/18 20:41 Respiratory Rate 20 10/12/18 20:41 Blood Pressure 162/98 10/12/18 20:41 O2 Sat by Pulse Oximetry (%) 93 L 10/12/18 20:41 Neck: Yes: WNL, Supple Cardiovascular: Yes: Tachycardia Respiratory: Yes: Rhonchi Gastrointestinal: Yes: WNL, Normal Bowel Sounds, Soft Edema: LLE: Trace, RLE: Trace Labs: CBC, BMP 10/11/18 06:05 10/12/18 12:45 Problem List - Problems (1) Pneumonia Assessment/Plan: CXR showed b/l pleural effusions and increased b/l airspace opacities Cont IV antibxs/IV steeroids Cont nebulizers Cont BIPAP Code(s): J18.9 - PNEUMONIA, UNSPECIFIED ORGANISM (2) Acute on chronic systolic (congestive) heart failure Assessment/Plan: Lasix on hold due to increasing creatinine and decreasing sodium As per cardio Code(s): I50.23 - ACUTE ON CHRONIC SYSTOLIC (CONGESTIVE) HEART FAILURE (3) CKD (chronic kidney disease) Assessment/Plan: Renal consult Code(s): N18.9 - CHRONIC KIDNEY DISEASE, UNSPECIFIED (4) HTN (hypertension) Assessment/Plan: BP stable Cont metoprolol/lisinopril Code(s): I10 - ESSENTIAL (PRIMARY) HYPERTENSION (5) HLD (hyperlipidemia) Assessment/Plan: Cont crestor Code(s): E78.5 - HYPERLIPIDEMIA, UNSPECIFIED (6) Osteoarthritis Code(s): M19.90 - UNSPECIFIED OSTEOARTHRITIS, UNSPECIFIED SITE Qualifiers: Osteoarthritis location: knee Osteoarthritis type: unspecified Laterality : right Qualified Code(s): M17.11 - Unilateral primary osteoarthritis, right knee (7) CAD (coronary artery disease) Assessment/Plan: Cont plavix Code(s): I25.10 - ATHSCL HEART DISEASE OF [place] CORONARY ARTERY W/O ANG PCTRS
[2018-10-12] MEDS: ROSUVASTATIN CA 10 MG TABLET (FP) PO SCH (21:04)
[2018-10-13 01:15] LABS: EPI CELLS 1.2 /HPF (0-5/HPF); HYALINE CASTS 1 /lpf (0-8); PH,URINE 5.5 (5.0-8.0); URINE APPEARANCE CLEAR; URINE BILIRUBIN NEGATIVE (NEGATIVE); URINE COLOR YELLOW; URINE GLUCOSE (UA) 2+ (NEGATIVE); URINE KETONE NEGATIVE (NEGATIVE); URINE LEUK ESTERASE NEGATIVE (NEGATIVE); URINE NITRITE NEGATIVE (NEGATIVE); URINE PROTEIN 3+ (NEGATIVE); URINE RBC 18 /hpf (0-4); URINE UROBILINOGEN 0.2 mg/dL (0.2-1.0); URINE WBC 1 /hpf (0-5)
[2018-10-13] MEDS ORDERED: PIPERACILLIN/TAZOBACTAM 2.25 GM VIAL IVPB ONE ×3 (01:38→17:04)
[2018-10-13] MEDS ORDERED: DEXTROSE 5%-WATER - 50 ML IVPB ONE ×3 (01:39→17:05)
[2018-10-13] MEDS: PIPERACILLIN/TAZOB 2.25 GM 2.25 GM in DEXTROSE 5%-WATER - 50 ML IVPB SCH ×3 (01:57→17:13)
[2018-10-13 05:19] LABS: RATIO URIN PROTEIN/URIN CREAT 5.89 MG/DL
[2018-10-13] MEDS: INSULIN SLIDING SCALE (NOVOLOG) 1 VIAL SQ SCH ×3 (06:42→17:13)
[2018-10-13 06:59] LABS: BLOOD UREA NITROGEN 70.3 mg/dL (7-18); CALCIUM 9.8 mg/dL (8.5-10.1); CREATININE 2.7 mg/dL (0.55-1.3)
[2018-10-13] MEDS: ALBUTEROL SO4 2.5/IPRATROPIUM 0.5 INH SOL 3 ML VIAL.NEB. NEB SCH ×4 (07:47→21:00)
[2018-10-13] MEDS: predniSONE 20 MG TABLET (UD) PO SCH (09:02)
[2018-10-13] MEDS: amLODIPine BESYLATE 2.5 MG TABLET (FP) PO SCH (09:02)
[2018-10-13] MEDS: metoPROLOL SUCCINATE 25 MG TAB.SR.24H (FP) PO SCH (09:02)
[2018-10-13] MEDS: SEVELAMER CARBONATE 800 MG TAB (FP) PO SCH ×3 (09:03→17:13)
[2018-10-13] MEDS: CLOPIDOGREL BISULFATE 75 MG TABLET (FP) PO SCH (09:03)
[2018-10-13] MEDS: PANTOPRAZOLE 40 MG TABLET (FP) PO SCH (09:03)
[2018-10-13] MEDS: ESCITALOPRAM OXALATE 10 MG TABLET (FP) PO SCH (09:03)
--- NOTE | 2018-10-13 09:03 | PN ---
Progress Note, Physician Chief Complaint: More alert No acute distress TELE: NSR w rare PVCs, occ V couplets History of Present Illness: remains hypertensive - Current Medication List Current Medications: Active Medications Albuterol/Ipratropium (Duoneb -) 1 amp NEB RQID [facility] Last Admin: 10/13/18 07:47 Dose: 1 amp Amlodipine Besylate (Norvasc -) 5 mg PO DAILY [facility] Last Admin: 10/12/18 10:17 Dose: 5 mg Clopidogrel Bisulfate (Plavix -) 75 mg PO DAILY [facility] Last Admin: 10/12/18 10:16 Dose: 75 mg Escitalopram Oxalate (Lexapro -) 10 mg PO DAILY [facility] Last Admin: 10/12/18 10:16 Dose: 10 mg Guaifenesin (Robitussin -) 10 ml PO Q6H PRN PRN Reason: COUGH Last Admin: 10/12/18 17:20 Dose: 10 ml Piperacillin Sod/Tazobactam (Sod 2.25 gm/ Dextrose) 50 mls @ 100 mls/hr IVPB Q8H-IV [facility]; Protocol Last Admin: 10/13/18 01:57 Dose: 100 mls/hr Azithromycin (Zithromax 500mg Ivpb (Pre-Docked)) 500 mg in 250 mls @ 250 mls/ hr IVPB DAILY [facility] Last Admin: 10/12/18 10:18 Dose: 250 mls/hr Insulin Aspart (Novolog Vial Sliding Scale -) 1 vial SQ TIDAC [facility]; Protocol Last Admin: 10/13/18 06:42 Dose: 2 units Metoprolol Succinate (Toprol Xl -) 50 mg PO DAILY [facility] Last Admin: 10/12/18 10:17 Dose: 50 mg Pantoprazole Sodium (Protonix -) 40 mg PO DAILY [facility] Last Admin: 10/12/18 10:16 Dose: 40 mg Prednisone (Deltasone -) 40 mg PO DAILY [facility] Rosuvastatin Calcium (Crestor -) 10 mg PO HS [facility] Last Admin: 10/12/18 21:04 Dose: 10 mg Sevelamer Carbonate (Renvela -) 800 mg PO TIDCM [facility] Last Admin: 10/12/18 17:20 Dose: 800 mg - Objective Vital Signs: Vital Signs Temperature 97.7 F 10/13/18 06:00 Pulse Rate 91 H 10/13/18 06:00 Respiratory Rate 20 10/13/18 06:00 Blood Pressure 173/75 H 10/13/18 06:00 O2 Sat by Pulse Oximetry (%) 97 10/13/18 07:47 Constitutional: Yes: No Distress Cardiovascular: Yes: Regular Rate and Rhythm Respiratory: Yes: Other (scattered rhonchi, decreased basilar breath sounds) Gastrointestinal: Yes: Soft Edema: No Labs: CBC, BMP 10/11/18 06:05 10/13/18 05:40 Laboratory Tests 10/10/18 10/10/18 10/11/18 07:00 07:00 06:05 WBC 19.7 H 15.0 H Hgb 10.1 L 9.6 L Plt Count Pending 705 H Sodium 125 L Potassium 4.8 BUN 67 H Creatinine 2.6 H Calcium 10/13/18 05:40 WBC Hgb Plt Count Sodium 126 L Potassium 5.0 BUN 70.3 H Creatinine 2.7 H Calcium 9.8 - ....Imaging EKG: Image Reviewed Assessment/Plan Assessment/Plan 1. Acute on chronic systolic CHF: -after diuresis BUN/Creat worsening, hyponatremia worsening. Thus lasix stopped as it does not appear she is vol overloaded. More likely her pulm findings are pna related. -cont bb. marjan held for ruth. 2. Suspected underlying CAD: -no signs acs -pt/family have declined cath due to MIKE risks (see prior dr welsh notes) 3. RUTH on CKD: -likely due to diuresis, cont to hold lasix and monitor cr trend 4. HTN: -Remains elevate, increase Amlodipine to 10mg daily 5.NSVT: -cont bb -sinus tachycardia noted on tele - likely in setting of PNA 6. Altered MS: -head ct w/o acute changes -Possibly due to Ativan, improved.
[2018-10-13] MEDS ORDERED: amLODIPine BESYLATE 5 MG TABLET (FP) PO ONE (09:30)
[2018-10-13] MEDS: AZITHROMYCIN IVPB 500 MG/250 ML BAG IVPB SCH (09:50)
[2018-10-13 10:58] LABS: MAGNESIUM 2.2 mg/dL (1.8-2.4)
--- NOTE | 2018-10-13 11:07 | PN ---
Progress Note, Physician History of Present Illness: pulmonary alert,comfortable,-resp distrress on nasal cannula - Current Medication List Current Medications: Active Medications Albuterol/Ipratropium (Duoneb -) 1 amp NEB RQID [facility] Last Admin: 10/13/18 07:47 Dose: 1 amp Amlodipine Besylate (Norvasc -) 10 mg PO DAILY [facility] Clopidogrel Bisulfate (Plavix -) 75 mg PO DAILY [facility] Last Admin: 10/13/18 09:03 Dose: 75 mg Escitalopram Oxalate (Lexapro -) 10 mg PO DAILY [facility] Last Admin: 10/13/18 09:03 Dose: 10 mg Guaifenesin (Robitussin -) 10 ml PO Q6H PRN PRN Reason: COUGH Last Admin: 10/12/18 17:20 Dose: 10 ml Piperacillin Sod/Tazobactam (Sod 2.25 gm/ Dextrose) 50 mls @ 100 mls/hr IVPB Q8H-IV [facility]; Protocol Last Admin: 10/13/18 09:03 Dose: 100 mls/hr Azithromycin (Zithromax 500mg Ivpb (Pre-Docked)) 500 mg in 250 mls @ 250 mls/ hr IVPB DAILY [facility] Last Admin: 10/13/18 09:50 Dose: 250 mls/hr Insulin Aspart (Novolog Vial Sliding Scale -) 1 vial SQ TIDAC [facility]; Protocol Last Admin: 10/13/18 06:42 Dose: 2 units Metoprolol Succinate (Toprol Xl -) 50 mg PO DAILY [facility] Last Admin: 10/13/18 09:02 Dose: 50 mg Pantoprazole Sodium (Protonix -) 40 mg PO DAILY [facility] Last Admin: 10/13/18 09:03 Dose: 40 mg Prednisone (Deltasone -) 40 mg PO DAILY [facility] Last Admin: 10/13/18 09:02 Dose: 40 mg Rosuvastatin Calcium (Crestor -) 10 mg PO HS [facility] Last Admin: 10/12/18 21:04 Dose: 10 mg Sevelamer Carbonate (Renvela -) 800 mg PO TIDCM [facility] Last Admin: 10/13/18 09:03 Dose: 800 mg - Objective Vital Signs: Vital Signs Temperature 98.1 F 10/13/18 09:18 Pulse Rate 100 H 10/13/18 09:18 Respiratory Rate 20 10/13/18 09:18 Blood Pressure 178/96 H 06/10/19 09:18 O2 Sat by Pulse Oximetry (%) 97 10/13/18 07:47 Constitutional: Yes: Well Nourished, Calm Eyes: Yes: WNL HENT: Yes: WNL Neck: Yes: WNL Cardiovascular: Yes: Regular Rate and Rhythm, S1, S2 Respiratory: Yes: Rhonchi (few scattered rhonchi and wheezes), Wheezes Gastrointestinal: Yes: Normal Bowel Sounds, Soft Extremities: Yes: WNL Edema: No Labs: CBC, BMP 10/11/18 06:05 10/13/18 05:40 Assessment/Plan IMP DYSPNEA ACUTE ON CHRONIC CHF ACUTE ON CHRONIC KIDNEY DISEASE ? ASHD HTN DM HLD H/O CVA PNEUMONIA HYPONATREMIA PLAN LASIX PER CARDIOLOGY DAILY WT SUPPLEMENTAL O2 INHALED BRONCHODILATORS PRN MONITOR LYTES,RENAL FUNCTION,NA PREDNISONE ABX PER ID CHEST X-RAY AM DR RENEE
--- NOTE | 2018-10-13 12:18 | PN ---
Progress Note (short form) - Note Progress Note: Renal follow up for JACK/Fluid overload Pt seen and examined at the bedside awake and alert daughter at the bedside reports pt being confused overnight making urine no cp, fever, chills Vital Signs Temperature 98.1 F 10/13/18 09:18 Pulse Rate 100 H 10/13/18 09:18 Respiratory Rate 20 10/13/18 09:18 Blood Pressure 178/96 H 10/13/18 09:18 O2 Sat by Pulse Oximetry (%) 97 10/13/18 07:47 Intake & Output 10/10/18 10/11/18 10/12/18 10/13/18 23:59 23:59 23:59 23:59 Intake Total 350 400 920 Output Total 7081 171 7629 400 Balance -950 -200 -680 -400 Weight 71.838 kg 71.214 kg 68.946 kg NAD on NC O2 RRR course BS soft NT/ND no LE or sacral edema CBC, BMP 10/11/18 06:05 10/13/18 05:40 Current Medications Albuterol/Ipratropium (Duoneb -) 1 amp NEB RQID [facility] Last Admin: 10/13/18 11:22 Dose: 1 amp Amlodipine Besylate (Norvasc -) 10 mg PO DAILY [facility] Clopidogrel Bisulfate (Plavix -) 75 mg PO DAILY [facility] Last Admin: 10/13/18 09:03 Dose: 75 mg Escitalopram Oxalate (Lexapro -) 10 mg PO DAILY [facility] Last Admin: 10/13/18 09:03 Dose: 10 mg Guaifenesin (Robitussin -) 10 ml PO Q6H PRN PRN Reason: COUGH Last Admin: 10/12/18 17:20 Dose: 10 ml Piperacillin Sod/Tazobactam (Sod 2.25 gm/ Dextrose) 50 mls @ 100 mls/hr IVPB Q8H-IV [facility]; Protocol Last Admin: 10/13/18 09:03 Dose: 100 mls/hr Azithromycin (Zithromax 500mg Ivpb (Pre-Docked)) 500 mg in 250 mls @ 250 mls/ hr IVPB DAILY [facility] Last Admin: 10/13/18 09:50 Dose: 250 mls/hr Insulin Aspart (Novolog Vial Sliding Scale -) 1 vial SQ TIDAC [facility]; Protocol Last Admin: 10/13/18 11:43 Dose: 4 units Metoprolol Succinate (Toprol Xl -) 50 mg PO DAILY [facility] Last Admin: 10/13/18 09:02 Dose: 50 mg Pantoprazole Sodium (Protonix -) 40 mg PO DAILY [facility] Last Admin: 10/13/18 09:03 Dose: 40 mg Prednisone (Deltasone -) 40 mg PO DAILY [facility] Last Admin: 10/13/18 09:02 Dose: 40 mg Rosuvastatin Calcium (Crestor -) 10 mg PO HS [facility] Last Admin: 10/12/18 21:04 Dose: 10 mg Sevelamer Carbonate (Renvela -) 800 mg PO TIDCM [facility] Last Admin: 10/13/18 09:03 Dose: 800 mg 88 yr old woman with a PMH of severe systolic CHF (on O2 3L NC at home, never required bipap or intubation), HTN, HLD, DM and CKD (baseline Cr ~1.6), CAD, and CVA who was sent in by Dr. Rayo Alberts for CHF exacerbation. 88 year old woman with hx of CKD stage 3 (baseline Cr 1.4-1.6), CHF, HTN, HLD, DM, CAD who presented with sob and admitted for CHF exacerbation witih JACK on CKD. #JACK on CKD r/o Cardio-renal syndrome vs. ATN #Hyponatremia #CHF exacerbation #Hypertension #CAD #DM #Anemia Cr worsened over the weekend to peak of 2.9 with diuretics, but now improving with withholding of diuretics Serum Na stable, continue fluid restriction continue Abx as per ID/Pulmonary continue Nebs Trend renal function and electrolytes Trend H/H Thank you Javon Cota DO
[2018-10-13] MEDS: guaiFENesin 200 MG/10 ML 10 ML UNIT-DOSE CUPS PO PRN (13:15)
[2018-10-13] MEDS ORDERED: INSULIN SLIDING SCALE (NOVOLOG) 1 VIAL SQ ONE (19:59)
[2018-10-13] MEDS: ROSUVASTATIN CA 10 MG TABLET (FP) PO SCH (21:02)
--- NOTE | 2018-10-13 22:09 | PN ---
Progress Note, Physician History of Present Illness: Pt agitated at times - Current Medication List Current Medications: Active Medications Albuterol/Ipratropium (Duoneb -) 1 amp NEB RQID [facility] Last Admin: 10/13/18 21:00 Dose: 1 amp Amlodipine Besylate (Norvasc -) 10 mg PO DAILY [facility] Clopidogrel Bisulfate (Plavix -) 75 mg PO DAILY [facility] Last Admin: 10/13/18 09:03 Dose: 75 mg Escitalopram Oxalate (Lexapro -) 10 mg PO DAILY [facility] Last Admin: 10/13/18 09:03 Dose: 10 mg Guaifenesin (Robitussin -) 10 ml PO Q6H PRN PRN Reason: COUGH Last Admin: 10/13/18 13:15 Dose: 10 ml Piperacillin Sod/Tazobactam (Sod 2.25 gm/ Dextrose) 50 mls @ 100 mls/hr IVPB Q8H-IV [facility]; Protocol Last Admin: 10/13/18 17:13 Dose: 100 mls/hr Insulin Aspart (Novolog Vial Sliding Scale -) 1 vial SQ TIDAC [facility]; Protocol Last Admin: 10/13/18 17:13 Dose: 4 units Metoprolol Succinate (Toprol Xl -) 50 mg PO DAILY [facility] Last Admin: 10/13/18 09:02 Dose: 50 mg Pantoprazole Sodium (Protonix -) 40 mg PO DAILY [facility] Last Admin: 10/13/18 09:03 Dose: 40 mg Prednisone (Deltasone -) 40 mg PO DAILY [facility] Last Admin: 10/13/18 09:02 Dose: 40 mg Rosuvastatin Calcium (Crestor -) 10 mg PO HS [facility] Last Admin: 10/13/18 21:02 Dose: 10 mg Sevelamer Carbonate (Renvela -) 800 mg PO TIDCM [facility] Last Admin: 10/13/18 17:13 Dose: 800 mg - Objective Vital Signs: Vital Signs Temperature 98.3 F 10/13/18 14:00 Pulse Rate 89 10/13/18 14:00 Respiratory Rate 18 10/13/18 14:00 Blood Pressure 140/89 10/13/18 14:00 O2 Sat by Pulse Oximetry (%) 94 L 10/13/18 09:00 Neck: Yes: WNL, Supple Cardiovascular: Yes: WNL, Regular Rate and Rhythm Respiratory: Yes: Rhonchi Gastrointestinal: Yes: WNL, Normal Bowel Sounds, Soft Labs: CBC, BMP 10/11/18 06:05 10/13/18 05:40 Problem List - Problems (1) Pneumonia Assessment/Plan: CXR showed b/l pleural effusions and increased b/l airspace opacities Cont IV zosyn and po prednisone Cont nebulizers Cont BIPAP Code(s): J18.9 - PNEUMONIA, UNSPECIFIED ORGANISM (2) Acute on chronic systolic (congestive) heart failure Assessment/Plan: Lasix on hold due to increasing creatinine and decreasing sodium As per cardio Code(s): I50.23 - ACUTE ON CHRONIC SYSTOLIC (CONGESTIVE) HEART FAILURE (3) CKD (chronic kidney disease) Assessment/Plan: Renal consult Code(s): N18.9 - CHRONIC KIDNEY DISEASE, UNSPECIFIED (4) HTN (hypertension) Assessment/Plan: BP stable Cont metoprolol/lisinopril Code(s): I10 - ESSENTIAL (PRIMARY) HYPERTENSION (5) HLD (hyperlipidemia) Assessment/Plan: Cont crestor Code(s): E78.5 - HYPERLIPIDEMIA, UNSPECIFIED (6) Osteoarthritis Code(s): M19.90 - UNSPECIFIED OSTEOARTHRITIS, UNSPECIFIED SITE Qualifiers: Osteoarthritis location: knee Osteoarthritis type: unspecified Laterality : right Qualified Code(s): M17.11 - Unilateral primary osteoarthritis, right knee (7) CAD (coronary artery disease) Assessment/Plan: Cont plavix Code(s): I25.10 - ATHSCL HEART DISEASE OF [place] CORONARY ARTERY W/O ANG PCTRS
[2018-10-14] MEDS ORDERED: DEXTROSE 5%-WATER - 50 ML IVPB ONE ×3 (01:33→16:11)
[2018-10-14] MEDS ORDERED: PIPERACILLIN/TAZOBACTAM 2.25 GM VIAL IVPB ONE ×3 (01:33→16:10)
[2018-10-14] MEDS: PIPERACILLIN/TAZOB 2.25 GM 2.25 GM in DEXTROSE 5%-WATER - 50 ML IVPB SCH ×3 (02:15→17:01)
[2018-10-14] MEDS: INSULIN SLIDING SCALE (NOVOLOG) 1 VIAL SQ SCH ×3 (06:27→16:50)
[2018-10-14] MEDS: ALBUTEROL SO4 2.5/IPRATROPIUM 0.5 INH SOL 3 ML VIAL.NEB. NEB SCH ×4 (08:07→20:40)
[2018-10-14] MEDS: metoPROLOL SUCCINATE 25 MG TAB.SR.24H (FP) PO SCH (09:30)
[2018-10-14] MEDS: predniSONE 20 MG TABLET (UD) PO SCH (09:30)
[2018-10-14] MEDS: SEVELAMER CARBONATE 800 MG TAB (FP) PO SCH ×3 (09:30→16:50)
[2018-10-14] MEDS: CLOPIDOGREL BISULFATE 75 MG TABLET (FP) PO SCH (09:30)
[2018-10-14] MEDS: amLODIPine BESYLATE 10 MG TABLET (FP) PO SCH (09:30)
[2018-10-14] MEDS: ESCITALOPRAM OXALATE 10 MG TABLET (FP) PO SCH (09:30)
[2018-10-14] MEDS: PANTOPRAZOLE 40 MG TABLET (FP) PO SCH (09:30)
--- NOTE | 2018-10-14 10:36 | PN ---
Progress Note (short form) - Note Progress Note: s: no chest pain, palps, dyspnea, dizziness TELE: sinus, PVCs, NSVT 7 beats Current Medications Albuterol/Ipratropium (Duoneb -) 1 amp NEB RQID [facility] Last Admin: 10/14/18 08:07 Dose: 1 amp Amlodipine Besylate (Norvasc -) 10 mg PO DAILY [facility] Last Admin: 10/14/18 09:30 Dose: 10 mg Clopidogrel Bisulfate (Plavix -) 75 mg PO DAILY [facility] Last Admin: 10/14/18 09:30 Dose: 75 mg Escitalopram Oxalate (Lexapro -) 10 mg PO DAILY [facility] Last Admin: 10/14/18 09:30 Dose: 10 mg Guaifenesin (Robitussin -) 10 ml PO Q6H PRN PRN Reason: COUGH Last Admin: 10/13/18 13:15 Dose: 10 ml Piperacillin Sod/Tazobactam (Sod 2.25 gm/ Dextrose) 50 mls @ 100 mls/hr IVPB Q8H-IV [facility]; Protocol Last Admin: 10/14/18 09:32 Dose: 100 mls/hr Insulin Aspart (Novolog Vial Sliding Scale -) 1 vial SQ TIDAC [facility]; Protocol Last Admin: 10/14/18 06:27 Dose: 2 units Metoprolol Succinate (Toprol Xl -) 50 mg PO DAILY [facility] Last Admin: 10/14/18 09:30 Dose: 50 mg Pantoprazole Sodium (Protonix -) 40 mg PO DAILY [facility] Last Admin: 10/14/18 09:30 Dose: 40 mg Prednisone (Deltasone -) 40 mg PO DAILY [facility] Last Admin: 10/14/18 09:30 Dose: 40 mg Rosuvastatin Calcium (Crestor -) 10 mg PO HS [facility] Last Admin: 10/13/18 21:02 Dose: 10 mg Sevelamer Carbonate (Renvela -) 800 mg PO TIDCM [facility] Last Admin: 10/14/18 09:30 Dose: 800 mg Vital Signs Period Temp Pulse Resp BP Sys/Vasquez Pulse Ox Last 24 Hr 97.4 F-98.3 F 89-93 18-22 140-170/81-96 97-97 Constitutional: Yes: No Distress Neck: no JVD HEENT: NCAT, PEERL Cardiovascular: Yes: Regular Rate and Rhythm Respiratory: Yes: Other (scattered rhonchi, decreased basilar breath sounds) Gastrointestinal: Yes: Soft Edema: No no jaundice, diaphoresis not agitated - ....Imaging EKG: Image Reviewed Assessment/Plan 1. Acute on chronic systolic CHF: - holding lasix for JACK, hyponatremia - appears euvolemic - sob likely 2/2 PNA, manage per primary -cont bb. marjan held for jack. 2. Suspected underlying CAD: -no signs acs -pt/family have declined cath due to MIKE risks (see prior dr welsh notes) 3. JACK on CKD: -likely due to diuresis, cont to hold lasix and monitor cr trend 4. HTN: - amlodipine increased to 10 mg daily - cont metoprolol - holding ACEI for JACK 5.NSVT: -cont bb -sinus tachycardia noted on tele - likely in setting of PNA 6. Altered MS: -head ct w/o acute changes -Possibly due to Ativan, improved.
--- NOTE | 2018-10-14 13:10 | PN ---
Progress Note, Physician History of Present Illness: pulmonary alert,feeling better,hypoxic off o2,-resp distress,less cough - Current Medication List Current Medications: Active Medications Albuterol/Ipratropium (Duoneb -) 1 amp NEB RQID [facility] Last Admin: 10/14/18 11:42 Dose: 1 amp Amlodipine Besylate (Norvasc -) 10 mg PO DAILY [facility] Last Admin: 10/14/18 09:30 Dose: 10 mg Clopidogrel Bisulfate (Plavix -) 75 mg PO DAILY [facility] Last Admin: 10/14/18 09:30 Dose: 75 mg Escitalopram Oxalate (Lexapro -) 10 mg PO DAILY [facility] Last Admin: 10/14/18 09:30 Dose: 10 mg Guaifenesin (Robitussin -) 10 ml PO Q6H PRN PRN Reason: COUGH Last Admin: 10/13/18 13:15 Dose: 10 ml Piperacillin Sod/Tazobactam (Sod 2.25 gm/ Dextrose) 50 mls @ 100 mls/hr IVPB Q8H-IV [facility]; Protocol Last Admin: 10/14/18 09:32 Dose: 100 mls/hr Insulin Aspart (Novolog Vial Sliding Scale -) 1 vial SQ TIDAC [facility]; Protocol Last Admin: 10/14/18 11:40 Dose: 4 units Metoprolol Succinate (Toprol Xl -) 50 mg PO DAILY [facility] Last Admin: 10/14/18 09:30 Dose: 50 mg Pantoprazole Sodium (Protonix -) 40 mg PO DAILY [facility] Last Admin: 10/14/18 09:30 Dose: 40 mg Prednisone (Deltasone -) 40 mg PO DAILY [facility] Last Admin: 10/14/18 09:30 Dose: 40 mg Rosuvastatin Calcium (Crestor -) 10 mg PO HS [facility] Last Admin: 10/13/18 21:02 Dose: 10 mg Sevelamer Carbonate (Renvela -) 800 mg PO TIDCM [facility] Last Admin: 10/14/18 09:30 Dose: 800 mg - Objective Vital Signs: Vital Signs Temperature 97.8 F 10/14/18 07:22 Pulse Rate 99 H 10/14/18 11:43 Respiratory Rate 22 H 10/14/18 09:00 Blood Pressure 151/81 10/14/18 07:22 O2 Sat by Pulse Oximetry (%) 77 L 10/14/18 11:43 Constitutional: Yes: Well Nourished, Calm Eyes: Yes: WNL HENT: Yes: WNL Neck: Yes: WNL Cardiovascular: Yes: Regular Rate and Rhythm, S1, S2 Respiratory: Yes: Diminished Gastrointestinal: Yes: Normal Bowel Sounds, Soft Extremities: Yes: WNL Edema: No Labs: CBC, BMP Assessment/Plan IMP DYSPNEA IMPROVING ACUTE ON CHRONIC CHF ACUTE ON CHRONIC KIDNEY DISEASE ? ASHD HTN DM HLD H/O CVA PNEUMONIA HYPONATREMIA PLAN LASIX PER CARDIOLOGY DAILY WT SUPPLEMENTAL O2 INHALED BRONCHODILATORS PRN MONITOR LYTES,RENAL FUNCTION,NA PREDNISONE ABX PER ID CHEST X-RAY AM DR RENEE
[2018-10-14 13:55] LABS: ALBUMIN 2.4 g/dl (3.4-5.0); BILIRUBIN,TOTAL 0.4 mg/dL (0.2-1); BLOOD UREA NITROGEN 61.8 mg/dL (7-18); CALCIUM 9.7 mg/dL (8.5-10.1); CREATININE 2.4 mg/dL (0.55-1.3); MAGNESIUM 2.2 mg/dL (1.8-2.4); POTASSIUM 4.9 mmol/L (3.5-5.1); TOT PROT 6.8 g/dl (6.4-8.2)
--- NOTE | 2018-10-14 15:37 | PN ---
Progress Note (short form) - Note Progress Note: Renal follow up for JACK/Fluid overload Pt seen and examined at the bedside awake and alert more comfortable today family at the bedside reports oral solute intake is poor no chest pain, no coughing today no fevers making urine Vital Signs Temperature 98.0 F 10/14/18 13:26 Pulse Rate 96 H 10/14/18 13:26 Respiratory Rate 22 H 10/14/18 13:26 Blood Pressure 144/77 10/14/18 13:26 O2 Sat by Pulse Oximetry (%) 77 L 10/14/18 11:43 Intake & Output 10/11/18 10/12/18 10/13/18 10/14/18 23:59 23:59 23:59 23:59 Intake Total 400 920 200 400 Output Total 600 1600 1700 Balance -200 -680 -1500 400 Weight 71.214 kg 68.946 kg 72.212 kg NAD on NC O2 RRR course BS soft NT/ND no LE or sacral edema CBC, BMP 10/11/18 06:05 10/14/18 12:52 Current Medications Albuterol/Ipratropium (Duoneb -) 1 amp NEB RQID [facility] Last Admin: 10/14/18 15:16 Dose: 1 amp Amlodipine Besylate (Norvasc -) 10 mg PO DAILY [facility] Last Admin: 10/14/18 09:30 Dose: 10 mg Clopidogrel Bisulfate (Plavix -) 75 mg PO DAILY [facility] Last Admin: 10/14/18 09:30 Dose: 75 mg Escitalopram Oxalate (Lexapro -) 10 mg PO DAILY [facility] Last Admin: 10/14/18 09:30 Dose: 10 mg Guaifenesin (Robitussin -) 10 ml PO Q6H PRN PRN Reason: COUGH Last Admin: 10/13/18 13:15 Dose: 10 ml Piperacillin Sod/Tazobactam (Sod 2.25 gm/ Dextrose) 50 mls @ 100 mls/hr IVPB Q8H-IV [facility]; Protocol Last Admin: 10/14/18 09:32 Dose: 100 mls/hr Insulin Aspart (Novolog Vial Sliding Scale -) 1 vial SQ TIDAC [facility]; Protocol Last Admin: 10/14/18 11:40 Dose: 4 units Metoprolol Succinate (Toprol Xl -) 50 mg PO DAILY [facility] Last Admin: 10/14/18 09:30 Dose: 50 mg Pantoprazole Sodium (Protonix -) 40 mg PO DAILY [facility] Last Admin: 10/14/18 09:30 Dose: 40 mg Prednisone (Deltasone -) 40 mg PO DAILY [facility] Last Admin: 10/14/18 09:30 Dose: 40 mg Rosuvastatin Calcium (Crestor -) 10 mg PO HS [facility] Last Admin: 10/13/18 21:02 Dose: 10 mg Sevelamer Carbonate (Renvela -) 800 mg PO TIDCM [facility] Last Admin: 10/14/18 14:06 Dose: 800 mg 88 yr old woman with a PMH of severe systolic CHF (on O2 3L NC at home, never required bipap or intubation), HTN, HLD, DM and CKD (baseline Cr ~1.6), CAD, and CVA who was sent in by Dr. Rayo Alberts for CHF exacerbation. 88 year old woman with hx of CKD stage 3 (baseline Cr 1.4-1.6), CHF, HTN, HLD, DM, CAD who presented with sob and admitted for CHF exacerbation wit JACK on CKD. #JACK on CKD r/o Cardio-renal syndrome vs. ATN #Hyponatremia #CHF exacerbation vs. acute PNA #Hypertension #CAD #DM #Anemia Renal function stable, BUN/Cr slightly improving off diuretics Serum Na unchanged, no acute neurologic deficit to warrant hyperteonic saline given BUN/Cr worsen and serum na worsen with IV diuretics it is unlikely that pt is total body volume overloaded or in overt HF and SOB/Cough likley due to PNA continue antibiotics as per pulmonary/ID continue to hold diuretics encouraged oral solute intake maintain on fluid restriction of 1L daily (discussed with family at the bedside) Trend renal function and electrolytes daily Thank you Javon Cota DO
--- NOTE | 2018-10-14 21:11 | PN ---
Progress Note, Physician History of Present Illness: Pt is awake but still hypoxic at times - Current Medication List Current Medications: Active Medications Albuterol/Ipratropium (Duoneb -) 1 amp NEB RQID [facility] Last Admin: 10/14/18 15:16 Dose: 1 amp Amlodipine Besylate (Norvasc -) 10 mg PO DAILY [facility] Last Admin: 10/14/18 09:30 Dose: 10 mg Clopidogrel Bisulfate (Plavix -) 75 mg PO DAILY [facility] Last Admin: 10/14/18 09:30 Dose: 75 mg Escitalopram Oxalate (Lexapro -) 10 mg PO DAILY [facility] Last Admin: 10/14/18 09:30 Dose: 10 mg Guaifenesin (Robitussin -) 10 ml PO Q6H PRN PRN Reason: COUGH Last Admin: 10/13/18 13:15 Dose: 10 ml Piperacillin Sod/Tazobactam (Sod 2.25 gm/ Dextrose) 50 mls @ 100 mls/hr IVPB Q8H-IV [facility]; Protocol Last Admin: 10/14/18 17:01 Dose: 100 mls/hr Insulin Aspart (Novolog Vial Sliding Scale -) 1 vial SQ TIDAC [facility]; Protocol Last Admin: 10/14/18 16:50 Dose: 6 units Metoprolol Succinate (Toprol Xl -) 50 mg PO DAILY [facility] Last Admin: 10/14/18 09:30 Dose: 50 mg Pantoprazole Sodium (Protonix -) 40 mg PO DAILY [facility] Last Admin: 10/14/18 09:30 Dose: 40 mg Prednisone (Deltasone -) 40 mg PO DAILY [facility] Last Admin: 10/14/18 09:30 Dose: 40 mg Rosuvastatin Calcium (Crestor -) 10 mg PO HS [facility] Last Admin: 10/13/18 21:02 Dose: 10 mg Sevelamer Carbonate (Renvela -) 800 mg PO TIDCM [facility] Last Admin: 10/14/18 16:50 Dose: 800 mg - Objective Vital Signs: Vital Signs Temperature 98.0 F 10/14/18 18:00 Pulse Rate 94 H 10/14/18 18:00 Respiratory Rate 20 10/14/18 18:00 Blood Pressure 163/86 10/14/18 18:00 O2 Sat by Pulse Oximetry (%) 77 L 10/14/18 11:43 Neck: Yes: WNL, Supple Cardiovascular: Yes: Tachycardia Respiratory: Yes: Rhonchi Gastrointestinal: Yes: WNL, Normal Bowel Sounds, Soft, Abdomen, Obese Labs: CBC, BMP 10/11/18 06:05 10/14/18 12:52 Problem List - Problems (1) Pneumonia Assessment/Plan: CXR 10/12/18 did not show much improvement Cont IV zosyn and po prednisone Cont nebulizers Cont BIPAP Code(s): J18.9 - PNEUMONIA, UNSPECIFIED ORGANISM (2) Acute on chronic systolic (congestive) heart failure Assessment/Plan: Lasix on hold due to increasing creatinine and decreasing sodium As per cardio Code(s): I50.23 - ACUTE ON CHRONIC SYSTOLIC (CONGESTIVE) HEART FAILURE (3) CKD (chronic kidney disease) Assessment/Plan: Renal consult Code(s): N18.9 - CHRONIC KIDNEY DISEASE, UNSPECIFIED (4) HTN (hypertension) Assessment/Plan: BP stable Cont metoprolol/lisinopril Code(s): I10 - ESSENTIAL (PRIMARY) HYPERTENSION (5) HLD (hyperlipidemia) Assessment/Plan: Cont crestor Code(s): E78.5 - HYPERLIPIDEMIA, UNSPECIFIED (6) Osteoarthritis Code(s): M19.90 - UNSPECIFIED OSTEOARTHRITIS, UNSPECIFIED SITE Qualifiers: Osteoarthritis location: knee Osteoarthritis type: unspecified Laterality : right Qualified Code(s): M17.11 - Unilateral primary osteoarthritis, right knee (7) CAD (coronary artery disease) Assessment/Plan: Cont plavix Code(s): I25.10 - ATHSCL HEART DISEASE OF [place] CORONARY ARTERY W/O ANG PCTRS
[2018-10-14] MEDS: ROSUVASTATIN CA 10 MG TABLET (FP) PO SCH (22:36)
[2018-10-15] MEDS ORDERED: PIPERACILLIN/TAZOBACTAM 2.25 GM VIAL IVPB ONE ×2 (00:54→10:08)
[2018-10-15] MEDS ORDERED: DEXTROSE 5%-WATER - 50 ML IVPB ONE ×2 (00:54→10:08)
[2018-10-15] MEDS: PIPERACILLIN/TAZOB 2.25 GM 2.25 GM in DEXTROSE 5%-WATER - 50 ML IVPB SCH ×3 (01:00→20:24)
[2018-10-15 06:36] LABS: BASO % 0.2 % (0-2.0); EOS % 0.1 % (0-4.5); HEMATOCRIT 32.1 % (32.4-45.2); HEMOGLOBIN 10.7 GM/dL (10.7-15.3); LYMPH % 5.5 % (8-40); MCH 27.5 pg (25.7-33.7); MCHC 33.4 g/dl (32.0-36.0); MEAN CELL VOLUME 82.2 fl (80-96); MEAN PLT VOLUME 7.6 fl (7.5-11.1); MONO % 9.5 % (3.8-10.2); NEUT % 84.7 % (42.8-82.8); RDW 14.2 % (11.6-15.6); WHITE BLOOD COUNT 18.2 K/mm3 (4.0-10.0)
[2018-10-15] MEDS: INSULIN SLIDING SCALE (NOVOLOG) 1 VIAL SQ SCH ×3 (06:38→17:14)
[2018-10-15 06:54] LABS: ALBUMIN 2.5 g/dl (3.4-5.0); BILIRUBIN,TOTAL 0.4 mg/dL (0.2-1); BLOOD UREA NITROGEN 55.2 mg/dL (7-18); CREATININE 2.3 mg/dL (0.55-1.3); MAGNESIUM 2.1 mg/dL (1.8-2.4); PHOSPHOROUS 3.8 mg/dL (2.5-4.9); POTASSIUM 4.8 mmol/L (3.5-5.1); TOT PROT 6.8 g/dl (6.4-8.2)
[2018-10-15] MEDS: ALBUTEROL SO4 2.5/IPRATROPIUM 0.5 INH SOL 3 ML VIAL.NEB. NEB SCH ×2 (07:51→11:27)
[2018-10-15] MEDS: SEVELAMER CARBONATE 800 MG TAB (FP) PO SCH ×3 (08:45→17:15)
[2018-10-15 09:13] LABS: ANISOCYTOSIS 0; MACROCYTOSIS 0; PLATELET ESTIMATE INCREASED
--- NOTE | 2018-10-15 10:13 | PN ---
Progress Note (short form) - Note Progress Note: s: confused, not answering questions appropriately TELE: sinus tach Current Medications Albuterol/Ipratropium (Duoneb -) 1 amp NEB RQID [facility] Last Admin: 10/15/18 07:51 Dose: 1 amp Amlodipine Besylate (Norvasc -) 10 mg PO DAILY [facility] Last Admin: 10/14/18 09:30 Dose: 10 mg Clopidogrel Bisulfate (Plavix -) 75 mg PO DAILY [facility] Last Admin: 10/14/18 09:30 Dose: 75 mg Escitalopram Oxalate (Lexapro -) 10 mg PO DAILY [facility] Last Admin: 10/14/18 09:30 Dose: 10 mg Guaifenesin (Robitussin -) 10 ml PO Q6H PRN PRN Reason: COUGH Last Admin: 10/13/18 13:15 Dose: 10 ml Piperacillin Sod/Tazobactam (Sod 2.25 gm/ Dextrose) 50 mls @ 100 mls/hr IVPB Q8H-IV [facility]; Protocol Last Admin: 10/15/18 01:00 Dose: 100 mls/hr Insulin Aspart (Novolog Vial Sliding Scale -) 1 vial SQ TIDAC [facility]; Protocol Last Admin: 10/15/18 06:38 Dose: 2 units Metoprolol Succinate (Toprol Xl -) 50 mg PO DAILY [facility] Last Admin: 10/14/18 09:30 Dose: 50 mg Pantoprazole Sodium (Protonix -) 40 mg PO DAILY [facility] Last Admin: 10/14/18 09:30 Dose: 40 mg Prednisone (Deltasone -) 40 mg PO DAILY [facility] Last Admin: 10/14/18 09:30 Dose: 40 mg Rosuvastatin Calcium (Crestor -) 10 mg PO HS [facility] Last Admin: 10/14/18 22:36 Dose: 10 mg Sevelamer Carbonate (Renvela -) 800 mg PO TIDCM [facility] Last Admin: 10/14/18 16:50 Dose: 800 mg Vital Signs Period Temp Pulse Resp BP Sys/Vasquez Pulse Ox Last 24 Hr 97.6 F-98.0 F 94-99 15-22 144-168/77-96 77-99 Constitutional: Yes: No Distress Neck: no JVD HEENT: NCAT, PEERL Cardiovascular: Yes: Regular Rate and Rhythm Respiratory: Yes: Other (scattered rhonchi, decreased basilar breath sounds) Gastrointestinal: Yes: Soft Edema: No no jaundice, diaphoresis not agitated - ....Imaging EKG: Image Reviewed Assessment/Plan 1. Acute on chronic systolic CHF: - holding lasix for JACK, hyponatremia - appears euvolemic - sob likely 2/2 PNA - pulm following - cont bb. marjan held for jack - would continue holding diuretics 2. Suspected underlying CAD: -no signs acs -pt/family have declined cath due to MIKE risks (see prior dr welsh notes) 3. JACK on CKD: -likely due to diuresis, cont to hold lasix and monitor cr trend 4. HTN: - amlodipine increased to 10 mg daily - cont metoprolol - holding ACEI for JACK 5.NSVT: -cont bb -sinus tachycardia noted on tele - likely in setting of PNA 6. Altered MS: -head ct w/o acute changes -Possibly due to Ativan, improved.
[2018-10-15] MEDS: PANTOPRAZOLE 40 MG TABLET (FP) PO SCH (10:20)
[2018-10-15] MEDS: metoPROLOL SUCCINATE 25 MG TAB.SR.24H (FP) PO SCH (10:20)
[2018-10-15] MEDS: CLOPIDOGREL BISULFATE 75 MG TABLET (FP) PO SCH (10:21)
[2018-10-15] MEDS: predniSONE 20 MG TABLET (UD) PO SCH (10:21)
[2018-10-15] MEDS: ESCITALOPRAM OXALATE 10 MG TABLET (FP) PO SCH (10:21)
[2018-10-15] MEDS: amLODIPine BESYLATE 10 MG TABLET (FP) PO SCH (10:21)
[2018-10-15 10:49] LABS: PLATELET COUNT 717 K/MM3 (134-434)
[2018-10-15 11:26] LABS: ARTERIAL BLD GAS O2 SATURATION 92.1 % (95-98); ARTERIAL BLOOD GAS BASE EXCESS 5.7 meq/l (-2-2); ARTERIAL BLOOD GAS PO2 65.5 mmHg (80-105); ARTERIAL BLOOD GAS pH 7.33 (7.35-7.45)
[2018-10-15 11:27] LABS: ALLENS TEST POSITIVE
--- NOTE | 2018-10-15 12:27 | PN ---
Progress Note, Physician History of Present Illness: pulmonary sleepy,more confused today,-resp distress. chest x-ray complete opacification left hemithorax - Current Medication List Current Medications: Active Medications Albuterol/Ipratropium (Duoneb -) 1 amp NEB RQID [facility] Last Admin: 10/15/18 11:27 Dose: 1 amp Amlodipine Besylate (Norvasc -) 10 mg PO DAILY [facility] Last Admin: 10/15/18 10:21 Dose: 10 mg Clopidogrel Bisulfate (Plavix -) 75 mg PO DAILY [facility] Last Admin: 10/15/18 10:21 Dose: 75 mg Escitalopram Oxalate (Lexapro -) 10 mg PO DAILY [facility] Last Admin: 10/15/18 10:21 Dose: 10 mg Guaifenesin (Robitussin -) 10 ml PO Q6H PRN PRN Reason: COUGH Last Admin: 10/13/18 13:15 Dose: 10 ml Piperacillin Sod/Tazobactam (Sod 2.25 gm/ Dextrose) 50 mls @ 100 mls/hr IVPB Q8H-IV [facility]; Protocol Last Admin: 10/15/18 10:21 Dose: 100 mls/hr Insulin Aspart (Novolog Vial Sliding Scale -) 1 vial SQ TIDAC [facility]; Protocol Last Admin: 10/15/18 11:52 Dose: 2 units Metoprolol Succinate (Toprol Xl -) 50 mg PO DAILY [facility] Last Admin: 10/15/18 10:20 Dose: 50 mg Pantoprazole Sodium (Protonix -) 40 mg PO DAILY [facility] Last Admin: 10/15/18 10:20 Dose: 40 mg Prednisone (Deltasone -) 40 mg PO DAILY [facility] Last Admin: 10/15/18 10:21 Dose: 40 mg Rosuvastatin Calcium (Crestor -) 10 mg PO HS [facility] Last Admin: 10/14/18 22:36 Dose: 10 mg Sevelamer Carbonate (Renvela -) 800 mg PO TIDCM [facility] Last Admin: 10/15/18 11:54 Dose: 800 mg - Objective Vital Signs: Vital Signs Temperature 97.6 F 10/15/18 05:28 Pulse Rate 96 H 10/15/18 05:28 Respiratory Rate 15 10/15/18 08:10 Blood Pressure 161/82 10/15/18 05:28 O2 Sat by Pulse Oximetry (%) 98 10/15/18 08:10 Constitutional: Yes: Well Nourished, Calm Eyes: Yes: WNL HENT: Yes: WNL Neck: Yes: WNL Cardiovascular: Yes: Regular Rate and Rhythm, S1, S2 Respiratory: Yes: Diminished (poor inspiratory effort ,diminished bs on left) Gastrointestinal: Yes: Normal Bowel Sounds, Soft Extremities: Yes: WNL Edema: No Labs: CBC, BMP 10/15/18 05:35 10/15/18 05:35 Laboratory Tests 10/15/18 10:33 ABG pH 7.33 L ABG pCO2 at Pt Temp 62.0 H ABG pO2 at Pt Temp 65.5 L ABG HCO3 32.4 H ABG O2 Sat (Measured) 92.1 L - ....Imaging Chest X-ray: Report Reviewed, Image Reviewed Assessment/Plan IMP DYSPNEA ACUTE ON CHRONIC CHF ACUTE ON CHRONIC KIDNEY DISEASE ? ASHD HTN DM HLD H/O CVA PNEUMONIA HYPONATREMIA OPACIFICATION LEFT HEMITHORAX ATELECTASIS/EFFUSION PLAN LASIX PER CARDIOLOGY DAILY WT SUPPLEMENTAL O2 INHALED BRONCHODILATORS PRN MONITOR LYTES,RENAL FUNCTION,NA PREDNISONE ABX PER ID CHEST CT BIPAP CHEST PT THORACENTESIS IF SIGNIFICANT PLEURAL EFFUSION DR RENEE
[2018-10-15] MEDS ORDERED: ALBUTEROL SO4 0.083% IH SOL 2.5 MG/3 ML VIAL.NEB. NEB STA (15:49)
[2018-10-15] MEDS: ACETYLCYSTEINE 20% 200MG/ML 4 ML VIAL *FOR ORAL / INH USE ONLY NEB SCH ×2 (16:40→20:55)
[2018-10-15] MEDS: ALBUTEROL SO4 0.083% IH SOL 2.5 MG/3 ML VIAL.NEB. NEB SCH ×2 (16:40→20:56)
--- NOTE | 2018-10-15 17:57 | PN ---
Progress Note (short form) - Note Progress Note: Renal follow up for JACK/Fluid overload Pt seen and examined at the bedside awake and alert on BIPAP no overnight events making urine not eating much as per family Vital Signs Temperature 97.6 F 10/15/18 17:29 Pulse Rate 94 H 10/15/18 17:29 Respiratory Rate 18 10/15/18 17:29 Blood Pressure 183/103 H 10/15/18 17:29 O2 Sat by Pulse Oximetry (%) 95 10/15/18 12:36 Intake & Output 10/12/18 10/13/18 10/14/18 10/15/18 23:59 23:59 23:59 23:59 Intake Total 920 200 500 500 Output Total 1600 1700 Balance -680 -1500 500 500 Weight 71.214 kg 68.946 kg 72.212 kg NAD on BIPAP RRR course BS soft NT/ND no LE or sacral edema CBC, BMP 10/15/18 05:35 10/15/18 05:35 Current Medications Acetylcysteine (Mucomyst 20 Oral / Inh Use Only*) 200 mg NEB RQID [facility] Albuterol Sulfate (Ventolin 0.083% Nebulizer Soln -) 1 amp NEB RQID [facility] Last Admin: 10/15/18 16:40 Dose: Not Given Amlodipine Besylate (Norvasc -) 10 mg PO DAILY [facility] Last Admin: 10/15/18 10:21 Dose: 10 mg Clopidogrel Bisulfate (Plavix -) 75 mg PO DAILY [facility] Last Admin: 10/15/18 10:21 Dose: 75 mg Escitalopram Oxalate (Lexapro -) 10 mg PO DAILY [facility] Last Admin: 10/15/18 10:21 Dose: 10 mg Guaifenesin (Robitussin -) 10 ml PO Q6H PRN PRN Reason: COUGH Last Admin: 10/13/18 13:15 Dose: 10 ml Piperacillin Sod/Tazobactam (Sod 2.25 gm/ Dextrose) 50 mls @ 100 mls/hr IVPB Q8H-IV [facility]; Protocol Last Admin: 10/15/18 10:21 Dose: 100 mls/hr Insulin Aspart (Novolog Vial Sliding Scale -) 1 vial SQ TIDAC [facility]; Protocol Last Admin: 10/15/18 17:14 Dose: 4 units Metoprolol Succinate (Toprol Xl -) 50 mg PO DAILY [facility] Last Admin: 10/15/18 10:20 Dose: 50 mg Pantoprazole Sodium (Protonix -) 40 mg PO DAILY [facility] Last Admin: 10/15/18 10:20 Dose: 40 mg Prednisone (Deltasone -) 40 mg PO DAILY [facility] Last Admin: 10/15/18 10:21 Dose: 40 mg Rosuvastatin Calcium (Crestor -) 10 mg PO HS [facility] Last Admin: 10/14/18 22:36 Dose: 10 mg Sevelamer Carbonate (Renvela -) 800 mg PO TIDCM [facility] Last Admin: 10/15/18 17:15 Dose: 800 mg 88 yr old woman with a PMH of severe systolic CHF (on O2 3L NC at home, never required bipap or intubation), HTN, HLD, DM and CKD (baseline Cr ~1.6), CAD, and CVA who was sent in by Dr. Rayo Alberts for CHF exacerbation. 88 year old woman with hx of CKD stage 3 (baseline Cr 1.4-1.6), CHF, HTN, HLD, DM, CAD who presented with sob and admitted for CHF exacerbation witih JACK on CKD. #JACK on CKD r/o Cardio-renal syndrome vs. ATN #Hyponatremia #CHF exacerbation vs. acute PNA #Hypertension #CAD #DM #Anemia Renal function and serum Na with modest improvement continue to hold diuretics pending results of CT lung continue antibiotics as per pulmonary/ID encouraged oral solute intake maintain on fluid restriction of 1L daily Trend renal function and electrolytes daily Thank you Javon Cota DO
[2018-10-15 21:22] LABS: ARTERIAL BLD GAS O2 SATURATION 96.2 % (95-98); ARTERIAL BLOOD GAS BASE EXCESS 7.1 meq/l (-2-2); ARTERIAL BLOOD GAS PO2 77.5 mmHg (80-105); ARTERIAL BLOOD GAS pH 7.41 (7.35-7.45)
[2018-10-15 21:33] LABS: ALLENS TEST POSITIVE
[2018-10-15] MEDS: hydrALAZINE HCL 25 MG TABLET (FP) PO SCH (21:47)
[2018-10-15] MEDS: ROSUVASTATIN CA 10 MG TABLET (FP) PO SCH (21:47)
--- NOTE | 2018-10-15 22:46 | PN ---
Progress Note, Physician - Current Medication List Current Medications: Active Medications Acetylcysteine (Mucomyst 20 Oral / Inh Use Only*) 200 mg NEB RQID [facility] Last Admin: 10/15/18 20:55 Dose: 200 mg Albuterol Sulfate (Ventolin 0.083% Nebulizer Soln -) 1 amp NEB RQID [facility] Last Admin: 10/15/18 20:56 Dose: 1 amp Amlodipine Besylate (Norvasc -) 10 mg PO DAILY [facility] Last Admin: 10/15/18 10:21 Dose: 10 mg Clopidogrel Bisulfate (Plavix -) 75 mg PO DAILY [facility] Last Admin: 10/15/18 10:21 Dose: 75 mg Escitalopram Oxalate (Lexapro -) 10 mg PO DAILY [facility] Last Admin: 10/15/18 10:21 Dose: 10 mg Guaifenesin (Robitussin -) 10 ml PO Q6H PRN PRN Reason: COUGH Last Admin: 10/13/18 13:15 Dose: 10 ml Hydralazine HCl (Apresoline -) 25 mg PO BID [facility] Last Admin: 10/15/18 21:47 Dose: 25 mg Piperacillin Sod/Tazobactam (Sod 2.25 gm/ Dextrose) 50 mls @ 100 mls/hr IVPB Q8H-IV [facility]; Protocol Last Admin: 10/15/18 20:24 Dose: 100 mls/hr Insulin Aspart (Novolog Vial Sliding Scale -) 1 vial SQ TIDAC [facility]; Protocol Last Admin: 10/15/18 17:14 Dose: 4 units Metoprolol Succinate (Toprol Xl -) 50 mg PO DAILY [facility] Last Admin: 10/15/18 10:20 Dose: 50 mg Pantoprazole Sodium (Protonix -) 40 mg PO DAILY [facility] Last Admin: 10/15/18 10:20 Dose: 40 mg Prednisone (Deltasone -) 40 mg PO DAILY [facility] Last Admin: 10/15/18 10:21 Dose: 40 mg Rosuvastatin Calcium (Crestor -) 10 mg PO HS [facility] Last Admin: 10/15/18 21:47 Dose: 10 mg Sevelamer Carbonate (Renvela -) 800 mg PO TIDCM [facility] Last Admin: 10/15/18 17:15 Dose: 800 mg - Objective Vital Signs: Vital Signs Temperature 97.6 F 10/15/18 17:29 Pulse Rate 94 H 10/15/18 17:29 Respiratory Rate 18 10/15/18 17:29 Blood Pressure 183/103 H 10/15/18 17:29 O2 Sat by Pulse Oximetry (%) 95 10/15/18 22:04 Cardiovascular: Yes: WNL, Regular Rate and Rhythm Respiratory: Yes: WNL, Regular, CTA Bilaterally Gastrointestinal: Yes: WNL, Normal Bowel Sounds, Soft Labs: CBC, BMP 10/15/18 05:35 10/15/18 05:35 Problem List - Problems (1) Pneumonia Code(s): J18.9 - PNEUMONIA, UNSPECIFIED ORGANISM (2) Acute on chronic systolic (congestive) heart failure Code(s): I50.23 - ACUTE ON CHRONIC SYSTOLIC (CONGESTIVE) HEART FAILURE (3) CKD (chronic kidney disease) Code(s): N18.9 - CHRONIC KIDNEY DISEASE, UNSPECIFIED (4) HTN (hypertension) Code(s): I10 - ESSENTIAL (PRIMARY) HYPERTENSION (5) HLD (hyperlipidemia) Code(s): E78.5 - HYPERLIPIDEMIA, UNSPECIFIED (6) Osteoarthritis Code(s): M19.90 - UNSPECIFIED OSTEOARTHRITIS, UNSPECIFIED SITE Qualifiers: Osteoarthritis location: knee Osteoarthritis type: unspecified Laterality : right Qualified Code(s): M17.11 - Unilateral primary osteoarthritis, right knee (7) CAD (coronary artery disease) Code(s): I25.10 - ATHSCL HEART DISEASE OF [place] CORONARY ARTERY W/O ANG PCTRS
[2018-10-16] MEDS ORDERED: PIPERACILLIN/TAZOBACTAM 2.25 GM VIAL IVPB ONE ×3 (01:40→17:12)
[2018-10-16] MEDS ORDERED: DEXTROSE 5%-WATER - 50 ML IVPB ONE ×3 (01:40→17:12)
[2018-10-16] MEDS ORDERED: hydrALAZINE HCL 25 MG TABLET (FP) PO ONE (01:45)
[2018-10-16] MEDS: PIPERACILLIN/TAZOB 2.25 GM 2.25 GM in DEXTROSE 5%-WATER - 50 ML IVPB SCH ×3 (02:35→17:21)
[2018-10-16] MEDS: amLODIPine BESYLATE 10 MG TABLET (FP) PO SCH ×2 (07:04→09:18)
[2018-10-16] MEDS: INSULIN SLIDING SCALE (NOVOLOG) 1 VIAL SQ SCH ×3 (07:08→17:22)
[2018-10-16] MEDS: metoPROLOL SUCCINATE 25 MG TAB.SR.24H (FP) PO SCH ×2 (07:09→09:18)
[2018-10-16 07:25] LABS: ARTERIAL BLD GAS O2 SATURATION 96.3 % (95-98); ARTERIAL BLOOD GAS BASE EXCESS 7.8 meq/l (-2-2); ARTERIAL BLOOD GAS PCO2 51.6 mmHg (35-45); ARTERIAL BLOOD GAS PO2 75.8 mmHg (80-105); ARTERIAL BLOOD GAS pH 7.42 (7.35-7.45)
[2018-10-16 07:32] LABS: ALLENS TEST POSITIVE
[2018-10-16 07:42] LABS: ALBUMIN 2.5 g/dl (3.4-5.0); BILIRUBIN,TOTAL 0.6 mg/dL (0.2-1); BLOOD UREA NITROGEN 47.3 mg/dL (7-18); CALCIUM 9.7 mg/dL (8.5-10.1); CREATININE 2.1 mg/dL (0.55-1.3); POTASSIUM 4.4 mmol/L (3.5-5.1); TOT PROT 6.6 g/dl (6.4-8.2)
[2018-10-16] MEDS: ACETYLCYSTEINE 20% 200MG/ML 4 ML VIAL *FOR ORAL / INH USE ONLY NEB SCH ×4 (08:01→20:07)
[2018-10-16] MEDS: ALBUTEROL SO4 0.083% IH SOL 2.5 MG/3 ML VIAL.NEB. NEB SCH ×4 (08:01→20:07)
[2018-10-16] MEDS: CLOPIDOGREL BISULFATE 75 MG TABLET (FP) PO SCH (09:19)
[2018-10-16] MEDS: PANTOPRAZOLE 40 MG TABLET (FP) PO SCH (09:19)
[2018-10-16] MEDS: predniSONE 20 MG TABLET (UD) PO SCH (09:19)
[2018-10-16] MEDS: SEVELAMER CARBONATE 800 MG TAB (FP) PO SCH ×3 (09:20→17:22)
[2018-10-16] MEDS: hydrALAZINE HCL 25 MG TABLET (FP) PO SCH ×2 (09:20→21:25)
[2018-10-16] MEDS: ESCITALOPRAM OXALATE 10 MG TABLET (FP) PO SCH (09:20)
[2018-10-16 10:05] LABS: BASO % 0.3 % (0-2.0); EOS % 0.3 % (0-4.5); LYMPH % 4.6 % (8-40); MCH 27.3 pg (25.7-33.7); MCHC 32.5 g/dl (32.0-36.0); MEAN CELL VOLUME 84.2 fl (80-96); MONO % 8.1 % (3.8-10.2); NEUT % 86.7 % (42.8-82.8); RBC 4.04 M/mm3 (3.60-5.2); RDW 14.6 % (11.6-15.6)
--- NOTE | 2018-10-16 10:38 | PN ---
Progress Note (short form) - Note Progress Note: s: no chest pain, edema, dizziness, lightheadedness Current Medications Generic Name Dose Route Start Last Admin Trade Name Freq PRN Reason Stop Dose Admin Acetylcysteine 200 mg 10/15/18 17:00 10/16/18 08:01 Mucomyst 20 Oral / Inh Use Only* NEB 200 mg RQID [facility] Administration Albuterol Sulfate 1 amp 10/15/18 16:00 10/16/18 08:01 Ventolin 0.083% Nebulizer Soln - NEB 1 amp RQID [facility] Administration Amlodipine Besylate 10 mg 10/14/18 10:00 10/16/18 09:18 Norvasc - PO Not Given DAILY [facility] Clopidogrel Bisulfate 75 mg 10/02/18 16:45 10/16/18 09:19 Plavix - PO 75 mg DAILY [facility] Administration Escitalopram Oxalate 10 mg 10/02/18 17:00 10/16/18 09:20 Lexapro - PO 10 mg DAILY [facility] Administration Guaifenesin 10 ml 10/08/18 11:16 10/13/18 13:15 Robitussin - PO 10 ml Q6H PRN Administration COUGH Hydralazine HCl 25 mg 10/15/18 22:00 10/16/18 09:20 Apresoline - PO 25 mg BID [facility] Administration Piperacillin Sod/Tazobactam 50 mls @ 100 mls/hr 10/06/18 15:30 10/16/18 09:19 Sod 2.25 gm/ Dextrose IVPB 100 mls/hr Q8H-IV [facility] Administration Protocol Insulin Aspart 1 vial 10/04/18 17:15 10/16/18 07:08 Novolog Vial Sliding Scale - SQ 2 units TIDAC [facility] Administration Protocol Metoprolol Succinate 50 mg 10/09/18 09:21 10/16/18 09:18 Toprol Xl - PO Not Given DAILY [facility] Pantoprazole Sodium 40 mg 10/04/18 17:00 10/16/18 09:19 Protonix - PO 40 mg DAILY [facility] Administration Prednisone 40 mg 10/13/18 10:00 10/16/18 09:19 Deltasone - PO 40 mg DAILY [facility] Administration Rosuvastatin Calcium 10 mg 10/02/18 22:00 10/15/18 21:47 Crestor - PO 10 mg HS [facility] Administration Sevelamer Carbonate 800 mg 10/11/18 12:00 10/16/18 09:20 Renvela - PO 800 mg TIDCM [facility] Administration Vital Signs Period Temp Pulse Resp BP Sys/Vasquez Pulse Ox Last 24 Hr 97 F-98.2 F 92-98 16-20 154-189/84-109 95-99 Constitutional: Yes: No Distress, Calm Eyes: No: Sclera Icterus HENT: No: Nasal Congestion Cardiovascular: Yes: Regular Rate and Rhythm, JVD, S1, S2, Other (PMI non diplaced). No: Gallop, Murmur Respiratory: Yes: scattered rhonchi No: Accessory Muscle Use Gastrointestinal: Yes: Normal Bowel Sounds, Soft. No: Tenderness Extremities: No: Cold, Cyanosis Edema: No Integumentary: No: Jaundice Neurological: Yes: Alert, Oriented (x3) Psychiatric: No: Agitated CBC, BMP 10/16/18 06:40 10/16/18 06:40 echo: LVSF appears mldly reduced, 40-45%. nl RV. mild MR. tele: sr, sinus tachy, occ pvcs Assessment/Plan Acute on chronic systolic CHF: -after diuresis BUN/Creat worsening, hyponatremia worsening. Thus lasix stopped as it seemed more likely her pulm findings are pna related. -cont bb. marjan held for jack. Suspected underlying CAD: -no signs acs -pt/family have declined cath due to MIKE risks (see prior dr welsh notes) JACK on CKD: -likely due to diuresis, cont to hold lasix and monitor cr trend--has been improving htn: -elevated, now started on hydralazine as well. cont bb, ccb. NSVT: -cont bb -sinus tachycardia noted on tele - likely in setting of PNA Altered MS: -head ct w/o acute changes -Likely due to Ativan, improved.
--- NOTE | 2018-10-16 11:11 | PN ---
Progress Note (short form) - Note Progress Note: Awake and responsive. Son at the bedside. She was on NIPPV overnight but was uncomfortable and restless. Now on NC O2 and mildly tachypneic but in NAD. Intake & Output 10/13/18 10/14/18 10/15/18 10/16/18 23:59 23:59 23:59 23:59 Intake Total 200 500 670 Output Total 1700 Balance -1500 500 670 Weight 152 lb 159 lb 3.2 oz 152 lb 3.2 oz Last Vital Signs Temp Pulse Resp BP Pulse Ox 98.2 F 92 H 20 166/86 96 10/16/18 08:59 10/16/18 08:59 10/16/18 08:59 10/16/18 08:59 10/16/18 09:55 Active Medications Acetylcysteine (Mucomyst 20 Oral / Inh Use Only*) 200 mg NEB RQID [facility] Last Admin: 10/16/18 08:01 Dose: 200 mg Albuterol Sulfate (Ventolin 0.083% Nebulizer Soln -) 1 amp NEB RQID [facility] Last Admin: 10/16/18 08:01 Dose: 1 amp Amlodipine Besylate (Norvasc -) 10 mg PO DAILY [facility] Last Admin: 10/16/18 09:18 Dose: Not Given Clopidogrel Bisulfate (Plavix -) 75 mg PO DAILY [facility] Last Admin: 10/16/18 09:19 Dose: 75 mg Escitalopram Oxalate (Lexapro -) 10 mg PO DAILY [facility] Last Admin: 10/16/18 09:20 Dose: 10 mg Guaifenesin (Robitussin -) 10 ml PO Q6H PRN PRN Reason: COUGH Last Admin: 10/13/18 13:15 Dose: 10 ml Hydralazine HCl (Apresoline -) 25 mg PO BID [facility] Last Admin: 10/16/18 09:20 Dose: 25 mg Piperacillin Sod/Tazobactam (Sod 2.25 gm/ Dextrose) 50 mls @ 100 mls/hr IVPB Q8H-IV [facility]; Protocol Last Admin: 10/16/18 09:19 Dose: 100 mls/hr Insulin Aspart (Novolog Vial Sliding Scale -) 1 vial SQ TIDAC [facility]; Protocol Last Admin: 10/16/18 07:08 Dose: 2 units Metoprolol Succinate (Toprol Xl -) 50 mg PO DAILY [facility] Last Admin: 10/16/18 09:18 Dose: Not Given Pantoprazole Sodium (Protonix -) 40 mg PO DAILY [facility] Last Admin: 10/16/18 09:19 Dose: 40 mg Prednisone (Deltasone -) 40 mg PO DAILY [facility] Last Admin: 10/16/18 09:19 Dose: 40 mg Rosuvastatin Calcium (Crestor -) 10 mg PO HS [facility] Last Admin: 10/15/18 21:47 Dose: 10 mg Sevelamer Carbonate (Renvela -) 800 mg PO TIDCM [facility] Last Admin: 10/16/18 09:20 Dose: 800 mg Constitutional: Yes: Mildly tachypneic on NC O2 Eyes: Yes: WNL HENT: Yes: WNL Neck: Yes: WNL Cardiovascular: Yes: Regular Rate and Rhythm, S1, S2 Respiratory: Yes: Diminished Left > Right, bilateral scattered rhonchi Gastrointestinal: Yes: Normal Bowel Sounds, Soft Extremities: Yes: WNL Edema: No Labs: Laboratory Results - last 24 hr 10/15/18 10/15/18 10/15/18 10:33 11:49 11:51 WBC RBC Hgb Hct MCV MCH MCHC RDW Absolute Neuts (auto) Neutrophils % Lymphocytes % Monocytes % Eosinophils % Basophils % Nucleated RBC % Anticoagulation Therapy Puncture Site Left radial ABG pH 7.33 L ABG pCO2 at Pt Temp 62.0 H ABG pO2 at Pt Temp 65.5 L ABG HCO3 32.4 H ABG O2 Sat (Measured) 92.1 L ABG O2 Content 13.7 L ABG Base Excess 5.7 H Gary Test Positive O2 Delivery Device Oxygen Flow Rate Yes Vent Mode Vent Rate Mechanical Rate Pressure Support Vent Sodium Potassium Chloride Carbon Dioxide Anion Gap BUN Creatinine Est GFR (CKD-EPI)AfAm Est GFR (CKD-EPI)NonAf POC Glucometer 190 188 Random Glucose Calcium Total Bilirubin AST ALT Alkaline Phosphatase Total Protein Albumin 10/15/18 10/15/18 10/16/18 16:20 21:10 06:04 WBC RBC Hgb Hct MCV MCH MCHC RDW Absolute Neuts (auto) Neutrophils % Lymphocytes % Monocytes % Eosinophils % Basophils % Nucleated RBC % Anticoagulation Therapy Puncture Site Right radial ABG pH 7.41 ABG pCO2 at Pt Temp 53.0 H ABG pO2 at Pt Temp 77.5 L ABG HCO3 32.5 H ABG O2 Sat (Measured) 96.2 ABG O2 Content 14.4 L ABG Base Excess 7.1 H Gary Test Positive O2 Delivery Device Oxygen Flow Rate Yes Vent Mode Vent Rate Mechanical Rate Pressure Support Vent Sodium Potassium Chloride Carbon Dioxide Anion Gap BUN Creatinine Est GFR (CKD-EPI)AfAm Est GFR (CKD-EPI)NonAf POC Glucometer 201 176 Random Glucose Calcium Total Bilirubin AST ALT Alkaline Phosphatase Total Protein Albumin 10/16/18 10/16/18 10/16/18 06:40 06:40 07:05 WBC 20.0 H RBC 4.04 Hgb 11.0 Hct 34.0 MCV 84.2 MCH 27.3 MCHC 32.5 RDW 14.6 Absolute Neuts (auto) 17.3 H Neutrophils % 86.7 H Lymphocytes % 4.6 L Monocytes % 8.1 Eosinophils % 0.3 D Basophils % 0.3 Nucleated RBC % 0 Anticoagulation Therapy No Result Required. Puncture Site Right radial ABG pH 7.42 ABG pCO2 at Pt Temp 51.6 H ABG pO2 at Pt Temp 75.8 L ABG HCO3 33.0 H ABG O2 Sat (Measured) 96.3 ABG O2 Content 14.2 L ABG Base Excess 7.8 H Gary Test Positive O2 Delivery Device No Result Required. Oxygen Flow Rate 40% Vent Mode S/t Vent Rate 14 Mechanical Rate Bipap Pressure Support Vent 10/5 Sodium 130 L Potassium 4.4 Chloride 89 L Carbon Dioxide 33 H Anion Gap 8 BUN 47.3 H Creatinine 2.1 H Est GFR (CKD-EPI)AfAm 24.09 Est GFR (CKD-EPI)NonAf 20.79 POC Glucometer Random Glucose 176 H Calcium 9.7 Total Bilirubin 0.6 AST 21 ALT 33 Alkaline Phosphatase 77 Total Protein 6.6 Albumin 2.5 L Assessment/Plan IMP DYSPNEA ACUTE ON CHRONIC CHF ACUTE ON CHRONIC KIDNEY DISEASE ? ASHD HTN DM HLD H/O CVA PNEUMONIA HYPONATREMIA OPACIFICATION LEFT HEMITHORAX ATELECTASIS/EFFUSION PLAN LASIX PER CARDIOLOGY DAILY WT SUPPLEMENTAL O2 INHALED BRONCHODILATORS PRN MONITOR LYTES,RENAL FUNCTION,NA PREDNISONE ABX PER ID NIPPV NEEDED CHEST PT D/W SON: WILL ARRANGE FOR THORACENTESIS AFTER ANTI-PLATELETS ARE HELD DR RYAN
--- NOTE | 2018-10-16 11:29 | PN ---
Progress Note, Physician History of Present Illness: AWAKE, ALERT IN BED BREATHING SL LABORED ON MASK AFEBRILE, ELEVATED WBC ON PREDNISONE CT/ CXR COMPLETE OPACIFICATION L LUNG, R PLEURAL EFFUSION/ PATCHY INFILTRATES - Current Medication List Current Medications: Active Medications Acetylcysteine (Mucomyst 20 Oral / Inh Use Only*) 200 mg NEB RQID [facility] Last Admin: 10/16/18 11:16 Dose: 200 mg Albuterol Sulfate (Ventolin 0.083% Nebulizer Soln -) 1 amp NEB RQID [facility] Last Admin: 10/16/18 11:16 Dose: 1 amp Amlodipine Besylate (Norvasc -) 10 mg PO DAILY [facility] Last Admin: 10/16/18 09:18 Dose: Not Given Escitalopram Oxalate (Lexapro -) 10 mg PO DAILY [facility] Last Admin: 10/16/18 09:20 Dose: 10 mg Guaifenesin (Robitussin -) 10 ml PO Q6H PRN PRN Reason: COUGH Last Admin: 10/13/18 13:15 Dose: 10 ml Hydralazine HCl (Apresoline -) 25 mg PO BID [facility] Last Admin: 10/16/18 09:20 Dose: 25 mg Piperacillin Sod/Tazobactam (Sod 2.25 gm/ Dextrose) 50 mls @ 100 mls/hr IVPB Q8H-IV [facility]; Protocol Last Admin: 10/16/18 09:19 Dose: 100 mls/hr Insulin Aspart (Novolog Vial Sliding Scale -) 1 vial SQ TIDAC [facility]; Protocol Last Admin: 10/16/18 07:08 Dose: 2 units Metoprolol Succinate (Toprol Xl -) 50 mg PO DAILY [facility] Last Admin: 10/16/18 09:18 Dose: Not Given Pantoprazole Sodium (Protonix -) 40 mg PO DAILY [facility] Last Admin: 10/16/18 09:19 Dose: 40 mg Prednisone (Deltasone -) 40 mg PO DAILY [facility] Last Admin: 10/16/18 09:19 Dose: 40 mg Rosuvastatin Calcium (Crestor -) 10 mg PO HS [facility] Last Admin: 10/15/18 21:47 Dose: 10 mg Sevelamer Carbonate (Renvela -) 800 mg PO TIDCM [facility] Last Admin: 10/16/18 09:20 Dose: 800 mg - Objective Vital Signs: Vital Signs Temperature 98.2 F 10/16/18 08:59 Pulse Rate 92 H 10/16/18 08:59 Respiratory Rate 20 10/16/18 08:59 Blood Pressure 166/86 10/16/18 08:59 O2 Sat by Pulse Oximetry (%) 96 10/16/18 09:55 Constitutional: Yes: No Distress, Obese Eyes: Yes: Conjunctiva Clear Cardiovascular: Yes: Regular Rate and Rhythm, S1, S2 Respiratory: Yes: Rhonchi Gastrointestinal: Yes: Normal Bowel Sounds, Soft, Abdomen, Obese. No: Tenderness Labs: CBC, BMP 10/16/18 06:40 10/16/18 06:40 Assessment/Plan CHF /PNEUMONIA OPACIFIED L HEMITHORAX R PLEURAL EFFUSION/ PATCHY INFILTRATES HYPONATREMIA CKD DM CONTINUE ZOSYN FOR THORACENTESIS
[2018-10-16 11:39] LABS: ANISOCYTOSIS 2+; MACROCYTOSIS 0; OVALOCYTE 1+; PLATELET ESTIMATE INCREASED; TEAR DROP CELLS 1+
[2018-10-16 11:54] LABS: PLATELET COUNT 620 K/MM3 (134-434)
--- NOTE | 2018-10-16 15:57 | PN ---
Progress Note (short form) - Note Progress Note: Renal follow up for JACK/Fluid overload Pt seen and examined at the bedside on NC O2 awake and alert appears uncomfortable no chest pain making urine no eating much as per family at the bedside Vital Signs Temperature 98.3 F 10/16/18 14:28 Pulse Rate 94 H 10/16/18 14:28 Respiratory Rate 20 10/16/18 14:28 Blood Pressure 145/78 10/16/18 14:28 O2 Sat by Pulse Oximetry (%) 96 10/16/18 09:55 Intake & Output 10/13/18 10/14/18 10/15/18 10/16/18 23:59 23:59 23:59 23:59 Intake Total 200 500 670 Output Total 1700 Balance -1500 500 670 Weight 68.946 kg 72.212 kg 69.037 kg NAD on BIPAP RRR course BS soft NT/ND no LE or sacral edema CBC, BMP 10/16/18 06:40 10/16/18 06:40 Current Medications Acetylcysteine (Mucomyst 20 Oral / Inh Use Only*) 200 mg NEB RQID [facility] Last Admin: 10/16/18 11:16 Dose: 200 mg Albuterol Sulfate (Ventolin 0.083% Nebulizer Soln -) 1 amp NEB RQID [facility] Last Admin: 10/16/18 11:16 Dose: 1 amp Amlodipine Besylate (Norvasc -) 10 mg PO DAILY [facility] Last Admin: 10/16/18 09:18 Dose: Not Given Escitalopram Oxalate (Lexapro -) 10 mg PO DAILY [facility] Last Admin: 10/16/18 09:20 Dose: 10 mg Guaifenesin (Robitussin -) 10 ml PO Q6H PRN PRN Reason: COUGH Last Admin: 10/13/18 13:15 Dose: 10 ml Hydralazine HCl (Apresoline -) 25 mg PO BID [facility] Last Admin: 10/16/18 09:20 Dose: 25 mg Piperacillin Sod/Tazobactam (Sod 2.25 gm/ Dextrose) 50 mls @ 100 mls/hr IVPB Q8H-IV [facility]; Protocol Last Admin: 10/16/18 09:19 Dose: 100 mls/hr Insulin Aspart (Novolog Vial Sliding Scale -) 1 vial SQ TIDAC [facility]; Protocol Last Admin: 10/16/18 12:07 Dose: 4 units Metoprolol Succinate (Toprol Xl -) 50 mg PO DAILY [facility] Last Admin: 10/16/18 09:18 Dose: Not Given Pantoprazole Sodium (Protonix -) 40 mg PO DAILY [facility] Last Admin: 10/16/18 09:19 Dose: 40 mg Prednisone (Deltasone -) 40 mg PO DAILY [facility] Last Admin: 10/16/18 09:19 Dose: 40 mg Rosuvastatin Calcium (Crestor -) 10 mg PO HS [facility] Last Admin: 10/15/18 21:47 Dose: 10 mg Sevelamer Carbonate (Renvela -) 800 mg PO TIDCM [facility] Last Admin: 10/16/18 12:08 Dose: 800 mg 88 yr old woman with a PMH of severe systolic CHF (on O2 3L NC at home, never required bipap or intubation), HTN, HLD, DM and CKD (baseline Cr ~1.6), CAD, and CVA who was sent in by Dr. Rayo Alberts for CHF exacerbation. 88 year old woman with hx of CKD stage 3 (baseline Cr 1.4-1.6), CHF, HTN, HLD, DM, CAD who presented with sob and admitted for CHF exacerbation witih JACK on CKD. #JACK on CKD r/o Cardio-renal syndrome vs. ATN #Hyponatremia #CHF exacerbation vs. acute PNA #Hypertension #CAD #DM #Anemia Renal function and serum Na improving CT lungs showed R> L effusion (etiology of effusion unclear, related to HF/CKD vs. PNA related) for possible thoracentesis (diagnostic and therapeutic) can give IVP diuretics as needed to mange respiratory status suspect that pt develops intravascular volume depletion (low albumin) in setting of diuretic use and thats why the BUN/Cr rise with diuretics unlikely to mobilize all off the effusion with diuretics alone maintain on fluid restriction of 1L daily Trend renal function and electrolytes daily Thank you Javon Cota DO
[2018-10-16] MEDS: ROSUVASTATIN CA 10 MG TABLET (FP) PO SCH (21:25)
--- NOTE | 2018-10-16 21:31 | PN ---
Progress Note, Physician - Current Medication List Current Medications: Active Medications Acetylcysteine (Mucomyst 20 Oral / Inh Use Only*) 200 mg NEB RQID [facility] Last Admin: 10/16/18 20:07 Dose: 200 mg Albuterol Sulfate (Ventolin 0.083% Nebulizer Soln -) 1 amp NEB RQID [facility] Last Admin: 10/16/18 20:07 Dose: 1 amp Amlodipine Besylate (Norvasc -) 10 mg PO DAILY [facility] Last Admin: 10/16/18 09:18 Dose: Not Given Escitalopram Oxalate (Lexapro -) 10 mg PO DAILY [facility] Last Admin: 10/16/18 09:20 Dose: 10 mg Guaifenesin (Robitussin -) 10 ml PO Q6H PRN PRN Reason: COUGH Last Admin: 10/13/18 13:15 Dose: 10 ml Hydralazine HCl (Apresoline -) 25 mg PO BID [facility] Last Admin: 10/16/18 21:25 Dose: 25 mg Piperacillin Sod/Tazobactam (Sod 2.25 gm/ Dextrose) 50 mls @ 100 mls/hr IVPB Q8H-IV [facility]; Protocol Last Admin: 10/16/18 17:21 Dose: 100 mls/hr Insulin Aspart (Novolog Vial Sliding Scale -) 1 vial SQ TIDAC [facility]; Protocol Last Admin: 10/16/18 17:22 Dose: 6 units Metoprolol Succinate (Toprol Xl -) 50 mg PO DAILY [facility] Last Admin: 10/16/18 09:18 Dose: Not Given Pantoprazole Sodium (Protonix -) 40 mg PO DAILY [facility] Last Admin: 10/16/18 09:19 Dose: 40 mg Prednisone (Deltasone -) 40 mg PO DAILY [facility] Last Admin: 10/16/18 09:19 Dose: 40 mg Rosuvastatin Calcium (Crestor -) 10 mg PO HS [facility] Last Admin: 10/16/18 21:25 Dose: 10 mg Sevelamer Carbonate (Renvela -) 800 mg PO TIDCM [facility] Last Admin: 10/16/18 17:22 Dose: 800 mg - Objective Vital Signs: Vital Signs Temperature 98 F 10/16/18 17:16 Pulse Rate 98 H 10/16/18 17:32 Respiratory Rate 20 10/16/18 17:16 Blood Pressure 158/83 10/16/18 17:32 O2 Sat by Pulse Oximetry (%) 95 10/16/18 16:10 Cardiovascular: Yes: WNL, Regular Rate and Rhythm Respiratory: Yes: WNL, Regular, CTA Bilaterally Gastrointestinal: Yes: WNL, Normal Bowel Sounds, Soft Labs: CBC, BMP 10/16/18 06:40 10/16/18 06:40 Problem List - Problems (1) Pneumonia Code(s): J18.9 - PNEUMONIA, UNSPECIFIED ORGANISM (2) Acute on chronic systolic (congestive) heart failure Code(s): I50.23 - ACUTE ON CHRONIC SYSTOLIC (CONGESTIVE) HEART FAILURE (3) CKD (chronic kidney disease) Code(s): N18.9 - CHRONIC KIDNEY DISEASE, UNSPECIFIED (4) HTN (hypertension) Code(s): I10 - ESSENTIAL (PRIMARY) HYPERTENSION (5) HLD (hyperlipidemia) Code(s): E78.5 - HYPERLIPIDEMIA, UNSPECIFIED (6) Osteoarthritis Code(s): M19.90 - UNSPECIFIED OSTEOARTHRITIS, UNSPECIFIED SITE Qualifiers: Osteoarthritis location: knee Osteoarthritis type: unspecified Laterality : right Qualified Code(s): M17.11 - Unilateral primary osteoarthritis, right knee (7) CAD (coronary artery disease) Code(s): I25.10 - ATHSCL HEART DISEASE OF [place] CORONARY ARTERY W/O ANG PCTRS
[2018-10-17] MEDS ORDERED: DEXTROSE 5%-WATER - 50 ML IVPB ONE ×3 (01:36→17:17)
[2018-10-17] MEDS ORDERED: PIPERACILLIN/TAZOBACTAM 2.25 GM VIAL IVPB ONE ×3 (01:36→17:17)
[2018-10-17] MEDS: PIPERACILLIN/TAZOB 2.25 GM 2.25 GM in DEXTROSE 5%-WATER - 50 ML IVPB SCH ×3 (01:49→18:42)
[2018-10-17] MEDS: INSULIN SLIDING SCALE (NOVOLOG) 1 VIAL SQ SCH ×3 (06:30→17:12)
[2018-10-17] MEDS: ACETYLCYSTEINE 20% 200MG/ML 4 ML VIAL *FOR ORAL / INH USE ONLY NEB SCH ×4 (07:35→20:46)
[2018-10-17] MEDS: ALBUTEROL SO4 0.083% IH SOL 2.5 MG/3 ML VIAL.NEB. NEB SCH ×4 (07:35→20:46)
[2018-10-17 08:08] LABS: ALBUMIN 2.7 g/dl (3.4-5.0); BILIRUBIN,TOTAL 0.5 mg/dL (0.2-1); BLOOD UREA NITROGEN 44.6 mg/dL (7-18); CALCIUM 9.9 mg/dL (8.5-10.1); CREATININE 2.1 mg/dL (0.55-1.3); MAGNESIUM 2.1 mg/dL (1.8-2.4); PHOSPHOROUS 3.5 mg/dL (2.5-4.9); POTASSIUM 4.6 mmol/L (3.5-5.1); TOT PROT 6.9 g/dl (6.4-8.2)
[2018-10-17 08:36] LABS: BASO % 0.1 % (0-2.0); EOS % 0.4 % (0-4.5); HEMATOCRIT 33.1 % (32.4-45.2); HEMOGLOBIN 10.8 GM/dL (10.7-15.3); LYMPH % 6.3 % (8-40); MCH 27.3 pg (25.7-33.7); MCHC 32.7 g/dl (32.0-36.0); MEAN CELL VOLUME 83.4 fl (80-96); MEAN PLT VOLUME 7.6 fl (7.5-11.1); MONO % 7.2 % (3.8-10.2); PLATELET COUNT 556 K/MM3 (134-434); RBC 3.97 M/mm3 (3.60-5.2); RDW 14.7 % (11.6-15.6); WHITE BLOOD COUNT 21.2 K/mm3 (4.0-10.0)
--- NOTE | 2018-10-17 10:12 | PN ---
Progress Note, Physician Chief Complaint: stable, no distress TELE: NSR - Current Medication List Current Medications: Active Medications Acetylcysteine (Mucomyst 20 Oral / Inh Use Only*) 200 mg NEB RQID [facility] Last Admin: 10/17/18 07:35 Dose: 200 mg Albuterol Sulfate (Ventolin 0.083% Nebulizer Soln -) 1 amp NEB RQID [facility] Last Admin: 10/17/18 07:35 Dose: 1 amp Amlodipine Besylate (Norvasc -) 10 mg PO DAILY [facility] Last Admin: 10/16/18 09:18 Dose: Not Given Escitalopram Oxalate (Lexapro -) 10 mg PO DAILY [facility] Last Admin: 10/16/18 09:20 Dose: 10 mg Guaifenesin (Robitussin -) 10 ml PO Q6H PRN PRN Reason: COUGH Last Admin: 10/13/18 13:15 Dose: 10 ml Hydralazine HCl (Apresoline -) 25 mg PO BID [facility] Last Admin: 10/16/18 21:25 Dose: 25 mg Piperacillin Sod/Tazobactam (Sod 2.25 gm/ Dextrose) 50 mls @ 100 mls/hr IVPB Q8H-IV [facility]; Protocol Last Admin: 10/17/18 01:49 Dose: 100 mls/hr Insulin Aspart (Novolog Vial Sliding Scale -) 1 vial SQ TIDAC [facility]; Protocol Last Admin: 10/17/18 06:30 Dose: 2 units Metoprolol Succinate (Toprol Xl -) 50 mg PO DAILY [facility] Last Admin: 10/16/18 09:18 Dose: Not Given Pantoprazole Sodium (Protonix -) 40 mg PO DAILY [facility] Last Admin: 10/16/18 09:19 Dose: 40 mg Prednisone (Deltasone -) 40 mg PO DAILY [facility] Last Admin: 10/16/18 09:19 Dose: 40 mg Rosuvastatin Calcium (Crestor -) 10 mg PO HS [facility] Last Admin: 10/16/18 21:25 Dose: 10 mg Sevelamer Carbonate (Renvela -) 800 mg PO TIDCM [facility] Last Admin: 10/16/18 17:22 Dose: 800 mg - Objective Vital Signs: Vital Signs Temperature 97.9 F 10/17/18 06:31 Pulse Rate 87 10/17/18 06:31 Respiratory Rate 20 06/14/19 06:31 Blood Pressure 152/90 06/14/19 06:31 O2 Sat by Pulse Oximetry (%) 95 10/17/18 09:56 Constitutional: Yes: No Distress Cardiovascular: Yes: Regular Rate and Rhythm Respiratory: Yes: Other (decreased breath sounds left base) Gastrointestinal: Yes: Soft Edema: No Neurological: Yes: Alert Labs: CBC, BMP 10/17/18 06:23 10/17/18 06:23 Laboratory Tests 10/17/18 10/17/18 06:23 06:23 WBC 21.2 H Hgb 10.8 Plt Count 556 H Sodium 129 L Potassium 4.6 BUN 44.6 H Creatinine 2.1 H - ....Imaging EKG: Image Reviewed Assessment/Plan Assessment/Plan Acute on chronic systolic CHF: -after diuresis BUN/Creat worsening, hyponatremia worsening. Thus lasix stopped as it seemed more likely her pulm findings are pna related. -cont bb. marjan held for ruth. -thoracentesis for pleural effusion planned early next week Suspected underlying CAD: -no signs acs -pt/family have declined cath due to MIKE risks (see prior dr welsh notes) RUTH on CKD: -likely due to diuresis, cont to hold lasix and monitor cr trend--has been improving htn: -elevated, now started on hydralazine as well. cont bb, ccb. NSVT: -cont bb -sinus tachycardia noted on tele - likely in setting of PNA Altered MS: -head ct w/o acute changes -Likely due to Ativan, improved.
--- NOTE | 2018-10-17 10:34 | PN ---
Progress Note (short form) - Note Progress Note: PULMONARY VSS/AFEBRILE FAMILY PRESENT PATIENT APPEARS MILDLY DYSPNEIC AT REST ON NASAL O2 PRESENTLY Constitutional: Yes: Well Nourished, Calm Eyes: Yes: WNL HENT: Yes: WNL Neck: Yes: WNL Cardiovascular: Yes: Regular Rate and Rhythm, S1, S2 Respiratory: Yes: Diminished (poor inspiratory effort ,diminished bs on left) Gastrointestinal: Yes: Normal Bowel Sounds, Soft Extremities: Yes: WNL Edema: No Labs: noted CT chest reviewed IMP DYSPNEA ACUTE ON CHRONIC CHF ACUTE ON CHRONIC KIDNEY DISEASE ? ASHD HTN DM HLD H/O CVA PNEUMONIA HYPONATREMIA OPACIFICATION LEFT HEMITHORAX ATELECTASIS/EFFUSION PLAN LASIX PER CARDIOLOGY DAILY WT SUPPLEMENTAL O2 INHALED BRONCHODILATORS PRN MONITOR LYTES,RENAL FUNCTION,NA PREDNISONE ABX PER ID BIPAP PRN CHEST PT THORACENTESIS SATURDAY Tarah PEREZ MD
[2018-10-17 11:16] LABS: ANISOCYTOSIS 0; MACROCYTOSIS 0; PLATELET ESTIMATE INCREASED
[2018-10-17] MEDS: SEVELAMER CARBONATE 800 MG TAB (FP) PO SCH ×2 (12:00→18:42)
[2018-10-17] MEDS: ESCITALOPRAM OXALATE 10 MG TABLET (FP) PO SCH (12:00)
[2018-10-17] MEDS: hydrALAZINE HCL 25 MG TABLET (FP) PO SCH ×2 (12:00→22:49)
[2018-10-17] MEDS: PANTOPRAZOLE 40 MG TABLET (FP) PO SCH (12:01)
[2018-10-17] MEDS: amLODIPine BESYLATE 10 MG TABLET (FP) PO SCH (12:01)
[2018-10-17] MEDS: predniSONE 20 MG TABLET (UD) PO SCH (12:01)
[2018-10-17] MEDS: metoPROLOL SUCCINATE 25 MG TAB.SR.24H (FP) PO SCH (12:03)
[2018-10-17] MEDS ORDERED: INSULIN SLIDING SCALE (NOVOLOG) 1 VIAL SQ ONE (12:18)
--- NOTE | 2018-10-17 13:26 | PN ---
Progress Note (short form) - Note Progress Note: Renal follow up for JACK/Fluid overload Pt seen and examined at the bedside comfortable on 3L NC no overnight events eating a little as per family making urine Vital Signs Temperature 97.9 F 10/17/18 12:00 Pulse Rate 102 H 10/17/18 12:00 Respiratory Rate 22 H 10/17/18 12:00 Blood Pressure 162/99 10/17/18 12:00 O2 Sat by Pulse Oximetry (%) 95 10/17/18 09:56 Intake & Output 10/14/18 10/15/18 10/16/18 10/17/18 23:59 23:59 23:59 23:59 Intake Total 500 670 200 150 Balance 500 670 200 150 Weight 72.212 kg 69.037 kg 69.031 kg NAD on BIPAP RRR course BS soft NT/ND no LE or sacral edema CBC, BMP 10/17/18 06:23 10/17/18 06:23 Current Medications Acetylcysteine (Mucomyst 20 Oral / Inh Use Only*) 200 mg NEB RQID [facility] Last Admin: 10/17/18 11:20 Dose: 200 mg Albuterol Sulfate (Ventolin 0.083% Nebulizer Soln -) 1 amp NEB RQID [facility] Last Admin: 10/17/18 11:20 Dose: 1 amp Amlodipine Besylate (Norvasc -) 10 mg PO DAILY [facility] Last Admin: 10/17/18 12:01 Dose: 10 mg Escitalopram Oxalate (Lexapro -) 10 mg PO DAILY [facility] Last Admin: 10/17/18 12:00 Dose: 10 mg Guaifenesin (Robitussin -) 10 ml PO Q6H PRN PRN Reason: COUGH Last Admin: 10/13/18 13:15 Dose: 10 ml Hydralazine HCl (Apresoline -) 25 mg PO BID [facility] Last Admin: 10/17/18 12:00 Dose: 25 mg Piperacillin Sod/Tazobactam (Sod 2.25 gm/ Dextrose) 50 mls @ 100 mls/hr IVPB Q8H-IV [facility]; Protocol Last Admin: 10/17/18 12:01 Dose: 100 mls/hr Insulin Aspart (Novolog Vial Sliding Scale -) 1 vial SQ TIDAC [facility]; Protocol Last Admin: 10/17/18 12:13 Dose: 4 units Metoprolol Succinate (Toprol Xl -) 50 mg PO DAILY [facility] Last Admin: 10/17/18 12:03 Dose: 50 mg Pantoprazole Sodium (Protonix -) 40 mg PO DAILY [facility] Last Admin: 10/17/18 12:01 Dose: 40 mg Prednisone (Deltasone -) 40 mg PO DAILY [facility] Last Admin: 10/17/18 12:01 Dose: 40 mg Rosuvastatin Calcium (Crestor -) 10 mg PO HS [facility] Last Admin: 10/16/18 21:25 Dose: 10 mg Sevelamer Carbonate (Renvela -) 800 mg PO TIDCM [facility] Last Admin: 10/17/18 12:00 Dose: 800 mg 88 yr old woman with a PMH of severe systolic CHF (on O2 3L NC at home, never required bipap or intubation), HTN, HLD, DM and CKD (baseline Cr ~1.6), CAD, and CVA who was sent in by Dr. Rayo Alberts for CHF exacerbation. 88 year old woman with hx of CKD stage 3 (baseline Cr 1.4-1.6), CHF, HTN, HLD, DM, CAD who presented with sob and admitted for CHF exacerbation wit JACK on CKD. #JACK on CKD #Hyponatremia #CHF exacerbation vs. acute PNA #Hypertension #CAD #DM #Anemia Renal function improving, serum na improved no overt hyperkalemia, acidosis to warrant dialysis urine output not documented as pt is incontinent CT lungs showed R> L effusion (etiology of effusion unclear, related to HF/CKD vs. PNA related) for possible thoracentesis (diagnostic and therapeutic) Saturday if any change in respiratory status can give IV Lasix as needed suspect that pt develops intravascular volume depletion (low albumin) in setting of diuretic use and thats why the BUN/Cr rise with diuretics unlikely to mobilize all off the effusion with diuretics alone maintain on fluid restriction of 1L daily Trend renal function and electrolytes daily Thank you Javon Cota DO
[2018-10-17 16:36] VITALS: BMI 27.8
--- NOTE | 2018-10-17 22:00 | PN ---
Progress Note, Physician - Current Medication List Current Medications: Active Medications Acetylcysteine (Mucomyst 20 Oral / Inh Use Only*) 200 mg NEB RQID [facility] Last Admin: 10/17/18 20:46 Dose: 200 mg Albuterol Sulfate (Ventolin 0.083% Nebulizer Soln -) 1 amp NEB RQID [facility] Last Admin: 10/17/18 20:46 Dose: 1 amp Amlodipine Besylate (Norvasc -) 10 mg PO DAILY [facility] Last Admin: 10/17/18 12:01 Dose: 10 mg Escitalopram Oxalate (Lexapro -) 10 mg PO DAILY [facility] Last Admin: 10/17/18 12:00 Dose: 10 mg Guaifenesin (Robitussin -) 10 ml PO Q6H PRN PRN Reason: COUGH Last Admin: 10/13/18 13:15 Dose: 10 ml Hydralazine HCl (Apresoline -) 25 mg PO BID [facility] Last Admin: 10/17/18 12:00 Dose: 25 mg Piperacillin Sod/Tazobactam (Sod 2.25 gm/ Dextrose) 50 mls @ 100 mls/hr IVPB Q8H-IV [facility]; Protocol Last Admin: 10/17/18 18:42 Dose: 100 mls/hr Insulin Aspart (Novolog Vial Sliding Scale -) 1 vial SQ TIDAC [facility]; Protocol Last Admin: 10/17/18 17:12 Dose: 4 units Metoprolol Succinate (Toprol Xl -) 50 mg PO DAILY [facility] Last Admin: 10/17/18 12:03 Dose: 50 mg Pantoprazole Sodium (Protonix -) 40 mg PO DAILY [facility] Last Admin: 10/17/18 12:01 Dose: 40 mg Prednisone (Deltasone -) 40 mg PO DAILY [facility] Last Admin: 10/17/18 12:01 Dose: 40 mg Rosuvastatin Calcium (Crestor -) 10 mg PO HS [facility] Last Admin: 10/16/18 21:25 Dose: 10 mg Sevelamer Carbonate (Renvela -) 800 mg PO TIDCM [facility] Last Admin: 10/17/18 18:42 Dose: 800 mg - Objective Vital Signs: Vital Signs Temperature 98 F 10/17/18 18:40 Pulse Rate 89 10/17/18 18:40 Respiratory Rate 20 10/17/18 18:40 Blood Pressure 174/78 H 10/17/18 18:40 O2 Sat by Pulse Oximetry (%) 98 10/17/18 20:45 Cardiovascular: Yes: WNL, Regular Rate and Rhythm Respiratory: Yes: WNL, Regular, CTA Bilaterally Gastrointestinal: Yes: WNL, Normal Bowel Sounds, Soft Labs: CBC, BMP 10/17/18 06:23 10/17/18 06:23 Problem List - Problems (1) Pneumonia Code(s): J18.9 - PNEUMONIA, UNSPECIFIED ORGANISM (2) Acute on chronic systolic (congestive) heart failure Code(s): I50.23 - ACUTE ON CHRONIC SYSTOLIC (CONGESTIVE) HEART FAILURE (3) CKD (chronic kidney disease) Code(s): N18.9 - CHRONIC KIDNEY DISEASE, UNSPECIFIED (4) HTN (hypertension) Code(s): I10 - ESSENTIAL (PRIMARY) HYPERTENSION (5) HLD (hyperlipidemia) Code(s): E78.5 - HYPERLIPIDEMIA, UNSPECIFIED (6) Osteoarthritis Code(s): M19.90 - UNSPECIFIED OSTEOARTHRITIS, UNSPECIFIED SITE Qualifiers: Osteoarthritis location: knee Osteoarthritis type: unspecified Laterality : right Qualified Code(s): M17.11 - Unilateral primary osteoarthritis, right knee (7) CAD (coronary artery disease) Code(s): I25.10 - ATHSCL HEART DISEASE OF [place] CORONARY ARTERY W/O ANG PCTRS
[2018-10-17] MEDS: ROSUVASTATIN CA 10 MG TABLET (FP) PO SCH (22:48)
[2018-10-18] MEDS ORDERED: PIPERACILLIN/TAZOBACTAM 2.25 GM VIAL IVPB ONE ×3 (01:28→17:01)
[2018-10-18] MEDS ORDERED: DEXTROSE 5%-WATER - 50 ML IVPB ONE ×3 (01:29→17:02)
[2018-10-18] MEDS: PIPERACILLIN/TAZOB 2.25 GM 2.25 GM in DEXTROSE 5%-WATER - 50 ML IVPB SCH ×3 (02:04→17:18)
[2018-10-18 06:18] LABS: BASO % 0.2 % (0-2.0); EOS % 0.2 % (0-4.5); HEMATOCRIT 30.4 % (32.4-45.2); HEMOGLOBIN 10.3 GM/dL (10.7-15.3); LYMPH % 4.6 % (8-40); MCH 28.1 pg (25.7-33.7); MCHC 33.9 g/dl (32.0-36.0); MEAN CELL VOLUME 82.9 fl (80-96); MEAN PLT VOLUME 7.5 fl (7.5-11.1); MONO % 7.2 % (3.8-10.2); NEUT % 87.8 % (42.8-82.8); PLATELET COUNT 451 K/MM3 (134-434); RBC 3.67 M/mm3 (3.60-5.2); RDW 14.2 % (11.6-15.6); WHITE BLOOD COUNT 17.2 K/mm3 (4.0-10.0)
[2018-10-18] MEDS: INSULIN SLIDING SCALE (NOVOLOG) 1 VIAL SQ SCH ×3 (06:22→16:49)
[2018-10-18 06:36] LABS: BLOOD UREA NITROGEN 45.3 mg/dL (7-18); CALCIUM 9.4 mg/dL (8.5-10.1); CREATININE 2.2 mg/dL (0.55-1.3); PHOSPHOROUS 4.2 mg/dL (2.5-4.9); POTASSIUM 4.5 mmol/L (3.5-5.1)
[2018-10-18] MEDS ORDERED: INSULIN SLIDING SCALE (NOVOLOG) 1 VIAL SQ ONE (07:50)
[2018-10-18] MEDS: ALBUTEROL SO4 0.083% IH SOL 2.5 MG/3 ML VIAL.NEB. NEB SCH ×4 (08:12→20:09)
[2018-10-18] MEDS: ACETYLCYSTEINE 20% 200MG/ML 4 ML VIAL *FOR ORAL / INH USE ONLY NEB SCH ×4 (08:12→20:09)
[2018-10-18] MEDS: SEVELAMER CARBONATE 800 MG TAB (FP) PO SCH ×3 (08:39→17:19)
[2018-10-18] MEDS ORDERED: PT OWN MED DRAWER 7, Y5N ONE (09:48)
[2018-10-18] MEDS: metoPROLOL SUCCINATE 25 MG TAB.SR.24H (FP) PO SCH (09:51)
[2018-10-18] MEDS: hydrALAZINE HCL 25 MG TABLET (FP) PO SCH ×2 (09:51→21:57)
[2018-10-18] MEDS: amLODIPine BESYLATE 10 MG TABLET (FP) PO SCH (09:51)
[2018-10-18] MEDS: predniSONE 20 MG TABLET (UD) PO SCH (09:51)
[2018-10-18] MEDS: PANTOPRAZOLE 40 MG TABLET (FP) PO SCH (09:51)
[2018-10-18] MEDS: ESCITALOPRAM OXALATE 10 MG TABLET (FP) PO SCH (09:51)
--- NOTE | 2018-10-18 10:41 | PN ---
Progress Note (short form) - Note Progress Note: PULMONARY VSS/AFEBRILE FAMILY PRESENT SUBJECTIVE IMPROVEMENT ON NASAL O2 PRESENTLY Constitutional: Yes: Well Nourished, Calm Eyes: Yes: WNL HENT: Yes: WNL Neck: Yes: WNL Cardiovascular: Yes: Regular Rate and Rhythm, S1, S2 Respiratory: Yes: Diminished (poor inspiratory effort ,diminished bs on left) Gastrointestinal: Yes: Normal Bowel Sounds, Soft Extremities: Yes: WNL Edema: No Labs: noted CT chest reviewed IMP DYSPNEA ACUTE ON CHRONIC CHF ACUTE ON CHRONIC KIDNEY DISEASE HTN DM HLD H/O CVA PNEUMONIA HYPONATREMIA OPACIFICATION LEFT HEMITHORAX ATELECTASIS/EFFUSION PLAN LASIX PER CARDIOLOGY DAILY WT SUPPLEMENTAL O2 INHALED BRONCHODILATORS PRN MONITOR LYTES,RENAL FUNCTION,NA PREDNISONE ABX PER ID BIPAP PRN CHEST PT THORACENTESIS SATURDAY Tarah PEREZ MD
--- NOTE | 2018-10-18 10:54 | PN ---
Progress Note (short form) - Note Progress Note: s: no chest pain, palps, dizziness tele: sinus, PVCs Current Medications Acetylcysteine (Mucomyst 20 Oral / Inh Use Only*) 200 mg NEB RQID [facility] Last Admin: 10/18/18 08:12 Dose: 200 mg Albuterol Sulfate (Ventolin 0.083% Nebulizer Soln -) 1 amp NEB RQID [facility] Last Admin: 10/18/18 08:12 Dose: 1 amp Amlodipine Besylate (Norvasc -) 10 mg PO DAILY [facility] Last Admin: 10/18/18 09:51 Dose: 10 mg Escitalopram Oxalate (Lexapro -) 10 mg PO DAILY [facility] Last Admin: 10/18/18 09:51 Dose: 10 mg Guaifenesin (Robitussin -) 10 ml PO Q6H PRN PRN Reason: COUGH Last Admin: 10/13/18 13:15 Dose: 10 ml Hydralazine HCl (Apresoline -) 25 mg PO BID [facility] Last Admin: 10/18/18 09:51 Dose: 25 mg Piperacillin Sod/Tazobactam (Sod 2.25 gm/ Dextrose) 50 mls @ 100 mls/hr IVPB Q8H-IV [facility]; Protocol Last Admin: 10/18/18 09:49 Dose: 100 mls/hr Insulin Aspart (Novolog Vial Sliding Scale -) 1 vial SQ TIDAC [facility]; Protocol Last Admin: 10/18/18 06:22 Dose: 2 units Metoprolol Succinate (Toprol Xl -) 50 mg PO DAILY [facility] Last Admin: 10/18/18 09:51 Dose: 50 mg Pantoprazole Sodium (Protonix -) 40 mg PO DAILY [facility] Last Admin: 10/18/18 09:51 Dose: 40 mg Prednisone (Deltasone -) 40 mg PO DAILY [facility] Last Admin: 10/18/18 09:51 Dose: 40 mg Rosuvastatin Calcium (Crestor -) 10 mg PO HS [facility] Last Admin: 10/17/18 22:48 Dose: 10 mg Sevelamer Carbonate (Renvela -) 800 mg PO TIDCM [facility] Last Admin: 10/18/18 08:39 Dose: 800 mg Vital Signs Period Temp Pulse Resp BP Sys/Vasquez Pulse Ox Last 24 Hr 97.9 F-98.7 F 84-102 18-22 145-174/77-99 98 Constitutional: Yes: No Distress Cardiovascular: Yes: Regular Rate and Rhythm Respiratory: Yes: Other (decreased breath sounds left base) Gastrointestinal: Yes: Soft Edema: No Neurological: Yes: Alert no jaundice, diaphoresis not agitated - ....Imaging EKG: Image Reviewed Assessment/Plan Assessment/Plan Acute on chronic systolic CHF: -after diuresis BUN/Creat worsening, hyponatremia worsening. Thus lasix stopped as it seemed more likely her pulm findings are pna related, cont holding lasix -cont bb. marjan held for ruth. -thoracentesis for pleural effusion planned early next week Suspected underlying CAD: -no signs acs -pt/family have declined cath due to MIKE risks (see prior dr welsh notes) RUTH on CKD: -likely due to diuresis, cont to hold lasix and monitor cr trend--stable htn: -elevated, increase hydralazine to 50 mg BID - cont bb, ccb. NSVT: -cont bb -sinus tachycardia noted on tele - likely in setting of PNA Altered MS: -head ct w/o acute changes -Likely due to Ativan, improved.
--- NOTE | 2018-10-18 11:31 | PN ---
Progress Note (short form) - Note Progress Note: ruth hyponatremia pna/pleural effusions on prn lasix Current Medications Acetylcysteine (Mucomyst 20 Oral / Inh Use Only*) 200 mg NEB RQID [facility] Last Admin: 10/18/18 08:12 Dose: 200 mg Albuterol Sulfate (Ventolin 0.083% Nebulizer Soln -) 1 amp NEB RQID [facility] Last Admin: 10/18/18 08:12 Dose: 1 amp Amlodipine Besylate (Norvasc -) 10 mg PO DAILY [facility] Last Admin: 10/18/18 09:51 Dose: 10 mg Escitalopram Oxalate (Lexapro -) 10 mg PO DAILY [facility] Last Admin: 10/18/18 09:51 Dose: 10 mg Guaifenesin (Robitussin -) 10 ml PO Q6H PRN PRN Reason: COUGH Last Admin: 10/13/18 13:15 Dose: 10 ml Hydralazine HCl (Apresoline -) 50 mg PO BID [facility] Piperacillin Sod/Tazobactam (Sod 2.25 gm/ Dextrose) 50 mls @ 100 mls/hr IVPB Q8H-IV [facility]; Protocol Last Admin: 10/18/18 09:49 Dose: 100 mls/hr Insulin Aspart (Novolog Vial Sliding Scale -) 1 vial SQ TIDAC [facility]; Protocol Last Admin: 10/18/18 11:29 Dose: 2 units Metoprolol Succinate (Toprol Xl -) 50 mg PO DAILY [facility] Last Admin: 10/18/18 09:51 Dose: 50 mg Pantoprazole Sodium (Protonix -) 40 mg PO DAILY [facility] Last Admin: 10/18/18 09:51 Dose: 40 mg Prednisone (Deltasone -) 40 mg PO DAILY [facility] Last Admin: 10/18/18 09:51 Dose: 40 mg Rosuvastatin Calcium (Crestor -) 10 mg PO HS [facility] Last Admin: 10/17/18 22:48 Dose: 10 mg Sevelamer Carbonate (Renvela -) 800 mg PO TIDCM [facility] Last Admin: 10/18/18 08:39 Dose: 800 mg Last Vital Signs Temp Pulse Resp BP Pulse Ox 98.7 F 90 19 145/89 98 10/18/18 09:30 10/18/18 09:30 10/18/18 09:30 10/18/18 09:30 10/17/18 20:45 alert, incoherent speech in no distress lungs clear heart reg ext no edema CBC, BMP 10/18/18 05:45 10/18/18 05:45
[2018-10-18] MEDS: ROSUVASTATIN CA 10 MG TABLET (FP) PO SCH (21:57)
[2018-10-18] MEDS: ACETAMINOPHEN 325 MG TABLET (FP) PO PRN (21:57)
--- NOTE | 2018-10-18 23:52 | PN ---
Progress Note, Physician - Current Medication List Current Medications: Active Medications Acetaminophen (Tylenol -) 650 mg PO Q6H PRN PRN Reason: FEVER Last Admin: 10/18/18 21:57 Dose: 650 mg Acetylcysteine (Mucomyst 20 Oral / Inh Use Only*) 200 mg NEB RQID [facility] Last Admin: 10/18/18 20:09 Dose: 200 mg Albuterol Sulfate (Ventolin 0.083% Nebulizer Soln -) 1 amp NEB RQID [facility] Last Admin: 10/18/18 20:09 Dose: 1 amp Amlodipine Besylate (Norvasc -) 10 mg PO DAILY [facility] Last Admin: 10/18/18 09:51 Dose: 10 mg Escitalopram Oxalate (Lexapro -) 10 mg PO DAILY [facility] Last Admin: 10/18/18 09:51 Dose: 10 mg Guaifenesin (Robitussin -) 10 ml PO Q6H PRN PRN Reason: COUGH Last Admin: 10/13/18 13:15 Dose: 10 ml Hydralazine HCl (Apresoline -) 50 mg PO BID [facility] Last Admin: 10/18/18 21:57 Dose: 50 mg Piperacillin Sod/Tazobactam (Sod 2.25 gm/ Dextrose) 50 mls @ 100 mls/hr IVPB Q8H-IV [facility]; Protocol Last Admin: 10/18/18 17:18 Dose: 100 mls/hr Insulin Aspart (Novolog Vial Sliding Scale -) 1 vial SQ TIDAC [facility]; Protocol Last Admin: 10/18/18 16:49 Dose: 4 units Metoprolol Succinate (Toprol Xl -) 50 mg PO DAILY [facility] Last Admin: 10/18/18 09:51 Dose: 50 mg Pantoprazole Sodium (Protonix -) 40 mg PO DAILY [facility] Last Admin: 10/18/18 09:51 Dose: 40 mg Prednisone (Deltasone -) 40 mg PO DAILY [facility] Last Admin: 10/18/18 09:51 Dose: 40 mg Rosuvastatin Calcium (Crestor -) 10 mg PO HS [facility] Last Admin: 10/18/18 21:57 Dose: 10 mg Sevelamer Carbonate (Renvela -) 800 mg PO TIDCM [facility] Last Admin: 10/18/18 17:19 Dose: 800 mg - Objective Vital Signs: Vital Signs Temperature 97.9 F 10/18/18 18:00 Pulse Rate 86 06/15/19 18:00 Respiratory Rate 18 10/18/18 18:00 Blood Pressure 165/90 10/18/18 18:00 O2 Sat by Pulse Oximetry (%) 99 10/18/18 21:00 Cardiovascular: Yes: WNL, Regular Rate and Rhythm Respiratory: Yes: WNL, Regular, CTA Bilaterally Gastrointestinal: Yes: WNL, Normal Bowel Sounds, Soft Labs: CBC, BMP 10/18/18 05:45 10/18/18 05:45 Problem List - Problems (1) Pneumonia Code(s): J18.9 - PNEUMONIA, UNSPECIFIED ORGANISM (2) Acute on chronic systolic (congestive) heart failure Code(s): I50.23 - ACUTE ON CHRONIC SYSTOLIC (CONGESTIVE) HEART FAILURE (3) CKD (chronic kidney disease) Code(s): N18.9 - CHRONIC KIDNEY DISEASE, UNSPECIFIED (4) HTN (hypertension) Code(s): I10 - ESSENTIAL (PRIMARY) HYPERTENSION (5) HLD (hyperlipidemia) Code(s): E78.5 - HYPERLIPIDEMIA, UNSPECIFIED (6) Osteoarthritis Code(s): M19.90 - UNSPECIFIED OSTEOARTHRITIS, UNSPECIFIED SITE Qualifiers: Osteoarthritis location: knee Osteoarthritis type: unspecified Laterality : right Qualified Code(s): M17.11 - Unilateral primary osteoarthritis, right knee (7) CAD (coronary artery disease) Code(s): I25.10 - ATHSCL HEART DISEASE OF [place] CORONARY ARTERY W/O ANG PCTRS
[2018-10-19] MEDS ORDERED: PIPERACILLIN/TAZOBACTAM 2.25 GM VIAL IVPB ONE ×3 (01:03→17:13)
[2018-10-19] MEDS ORDERED: DEXTROSE 5%-WATER - 50 ML IVPB ONE ×3 (01:03→17:13)
[2018-10-19] MEDS: PIPERACILLIN/TAZOB 2.25 GM 2.25 GM in DEXTROSE 5%-WATER - 50 ML IVPB SCH ×3 (01:08→17:32)
[2018-10-19] MEDS: INSULIN SLIDING SCALE (NOVOLOG) 1 VIAL SQ SCH ×3 (06:00→17:32)
[2018-10-19] MEDS: ACETYLCYSTEINE 20% 200MG/ML 4 ML VIAL *FOR ORAL / INH USE ONLY NEB SCH ×4 (08:26→19:32)
[2018-10-19] MEDS: ALBUTEROL SO4 0.083% IH SOL 2.5 MG/3 ML VIAL.NEB. NEB SCH ×4 (08:26→19:32)
[2018-10-19] MEDS: SEVELAMER CARBONATE 800 MG TAB (FP) PO SCH ×4 (08:28→17:32)
--- NOTE | 2018-10-19 08:56 | PN ---
Progress Note (short form) - Note Progress Note: PULMONARY VSS/AFEBRILE FAMILY PRESENT SUBJECTIVE IMPROVEMENT ON NASAL O2 PRESENTLY Constitutional: Yes: Well Nourished, Calm Eyes: Yes: WNL HENT: Yes: WNL Neck: Yes: WNL Cardiovascular: Yes: Regular Rate and Rhythm, S1, S2 Respiratory: Yes: Diminished (poor inspiratory effort ,diminished bs on left) Gastrointestinal: Yes: Normal Bowel Sounds, Soft Extremities: Yes: WNL Edema: No Labs: noted CT chest reviewed CXR reviewed IMP DYSPNEA ACUTE ON CHRONIC CHF ACUTE ON CHRONIC KIDNEY DISEASE HTN DM HLD H/O CVA PNEUMONIA HYPONATREMIA OPACIFICATION LEFT HEMITHORAX ATELECTASIS/EFFUSION PLAN LASIX PER CARDIOLOGY DAILY WT SUPPLEMENTAL O2 INHALED BRONCHODILATORS PRN MONITOR LYTES,RENAL FUNCTION,NA PREDNISONE ABX PER ID BIPAP PRN CHEST PT THORACENTESIS SATURDAY R CHRIS OLSON
[2018-10-19] MEDS: metoPROLOL SUCCINATE 25 MG TAB.SR.24H (FP) PO SCH (10:07)
[2018-10-19] MEDS: amLODIPine BESYLATE 10 MG TABLET (FP) PO SCH (10:07)
[2018-10-19] MEDS: predniSONE 20 MG TABLET (UD) PO SCH (10:07)
[2018-10-19] MEDS: ESCITALOPRAM OXALATE 10 MG TABLET (FP) PO SCH (10:07)
[2018-10-19] MEDS: PANTOPRAZOLE 40 MG TABLET (FP) PO SCH (10:07)
[2018-10-19] MEDS: hydrALAZINE HCL 25 MG TABLET (FP) PO SCH ×2 (10:07→21:53)
--- NOTE | 2018-10-19 10:47 | PN ---
Progress Note (short form) - Note Progress Note: s: no chest pain, palps, dizziness tele: sinus, PVCs Current Medications Acetaminophen (Tylenol -) 650 mg PO Q6H PRN PRN Reason: FEVER Last Admin: 10/18/18 21:57 Dose: 650 mg Acetylcysteine (Mucomyst 20 Oral / Inh Use Only*) 200 mg NEB RQID [facility] Last Admin: 10/19/18 08:26 Dose: 200 mg Albuterol Sulfate (Ventolin 0.083% Nebulizer Soln -) 1 amp NEB RQID [facility] Last Admin: 10/19/18 08:26 Dose: 1 amp Amlodipine Besylate (Norvasc -) 10 mg PO DAILY [facility] Last Admin: 10/19/18 10:07 Dose: 10 mg Escitalopram Oxalate (Lexapro -) 10 mg PO DAILY [facility] Last Admin: 10/19/18 10:07 Dose: 10 mg Guaifenesin (Robitussin -) 10 ml PO Q6H PRN PRN Reason: COUGH Last Admin: 10/13/18 13:15 Dose: 10 ml Hydralazine HCl (Apresoline -) 50 mg PO BID [facility] Last Admin: 10/19/18 10:07 Dose: 50 mg Piperacillin Sod/Tazobactam (Sod 2.25 gm/ Dextrose) 50 mls @ 100 mls/hr IVPB Q8H-IV [facility]; Protocol Last Admin: 10/19/18 10:08 Dose: 100 mls/hr Insulin Aspart (Novolog Vial Sliding Scale -) 1 vial SQ TIDAC [facility]; Protocol Last Admin: 10/19/18 06:00 Dose: Not Given Metoprolol Succinate (Toprol Xl -) 50 mg PO DAILY [facility] Last Admin: 10/19/18 10:07 Dose: 50 mg Pantoprazole Sodium (Protonix -) 40 mg PO DAILY [facility] Last Admin: 10/19/18 10:07 Dose: 40 mg Prednisone (Deltasone -) 40 mg PO DAILY [facility] Last Admin: 10/19/18 10:07 Dose: 40 mg Rosuvastatin Calcium (Crestor -) 10 mg PO HS [facility] Last Admin: 10/18/18 21:57 Dose: 10 mg Sevelamer Carbonate (Renvela -) 800 mg PO TIDCM [facility] Last Admin: 10/19/18 08:52 Dose: Not Given Vital Signs Period Temp Pulse Resp BP Sys/Vasquez Pulse Ox Last 24 Hr 97.6 F-98.3 F 81-86 18-20 144-165/80-90 99 Constitutional: Yes: No Distress Cardiovascular: Yes: Regular Rate and Rhythm Respiratory: Yes: Other (decreased breath sounds left base) Gastrointestinal: Yes: Soft Edema: No Neurological: Yes: Alert no jaundice, diaphoresis not agitated - ....Imaging EKG: Image Reviewed Assessment/Plan Acute on chronic systolic CHF: -after diuresis BUN/Creat worsening, hyponatremia worsening. Thus lasix stopped as it seemed more likely her pulm findings are pna related, cont holding lasix -cont bb. marjan held for ruth -thoracentesis for pleural effusion planned for Saturday Suspected underlying CAD: -no signs acs -pt/family have declined cath due to MIKE risks (see prior dr welsh notes) RUTH on CKD: -likely due to diuresis, cont to hold lasix and monitor cr trend--stable htn: -elevated, increase hydralazine to 50 mg BID - cont bb, ccb. NSVT: -cont bb -sinus tachycardia noted on tele - likely in setting of PNA Altered MS: -head ct w/o acute changes -Likely due to Ativan, improved.
--- NOTE | 2018-10-19 18:27 | PN ---
Progress Note (short form) - Note Progress Note: ruth hyponatremia pna/pleural effusions on prn lasix Current Medications Acetaminophen (Tylenol -) 650 mg PO Q6H PRN PRN Reason: FEVER Last Admin: 10/18/18 21:57 Dose: 650 mg Acetylcysteine (Mucomyst 20 Oral / Inh Use Only*) 200 mg NEB RQID [facility] Last Admin: 10/19/18 15:28 Dose: 200 mg Albuterol Sulfate (Ventolin 0.083% Nebulizer Soln -) 1 amp NEB RQID [facility] Last Admin: 10/19/18 15:28 Dose: 1 amp Amlodipine Besylate (Norvasc -) 10 mg PO DAILY [facility] Last Admin: 10/19/18 10:07 Dose: 10 mg Escitalopram Oxalate (Lexapro -) 10 mg PO DAILY [facility] Last Admin: 10/19/18 10:07 Dose: 10 mg Guaifenesin (Robitussin -) 10 ml PO Q6H PRN PRN Reason: COUGH Last Admin: 10/13/18 13:15 Dose: 10 ml Hydralazine HCl (Apresoline -) 50 mg PO BID [facility] Last Admin: 10/19/18 10:07 Dose: 50 mg Piperacillin Sod/Tazobactam (Sod 2.25 gm/ Dextrose) 50 mls @ 100 mls/hr IVPB Q8H-IV [facility]; Protocol Last Admin: 10/19/18 17:32 Dose: 100 mls/hr Insulin Aspart (Novolog Vial Sliding Scale -) 1 vial SQ TIDAC [facility]; Protocol Last Admin: 10/19/18 17:32 Dose: 6 units Metoprolol Succinate (Toprol Xl -) 50 mg PO DAILY [facility] Last Admin: 10/19/18 10:07 Dose: 50 mg Pantoprazole Sodium (Protonix -) 40 mg PO DAILY [facility] Last Admin: 10/19/18 10:07 Dose: 40 mg Prednisone (Deltasone -) 40 mg PO DAILY [facility] Last Admin: 10/19/18 10:07 Dose: 40 mg Rosuvastatin Calcium (Crestor -) 10 mg PO HS [facility] Last Admin: 10/18/18 21:57 Dose: 10 mg Sevelamer Carbonate (Renvela -) 800 mg PO TIDCM [facility] Last Admin: 10/19/18 17:32 Dose: 800 mg Last Vital Signs Temp Pulse Resp BP Pulse Ox 98.1 F 81 20 144/90 100 10/19/18 06:00 10/19/18 06:00 10/19/18 10:00 10/19/18 06:00 10/19/18 10:00 alert, incoherent speech in no distress lungs clear heart reg ext no edema no labs today F/u labs tomorrow
--- NOTE | 2018-10-19 20:39 | PN ---
Progress Note, Physician History of Present Illness: Pt agitated today - Current Medication List Current Medications: Active Medications Acetaminophen (Tylenol -) 650 mg PO Q6H PRN PRN Reason: FEVER Last Admin: 10/18/18 21:57 Dose: 650 mg Acetylcysteine (Mucomyst 20 Oral / Inh Use Only*) 200 mg NEB RQID [facility] Last Admin: 10/19/18 19:32 Dose: 200 mg Albuterol Sulfate (Ventolin 0.083% Nebulizer Soln -) 1 amp NEB RQID [facility] Last Admin: 10/19/18 19:32 Dose: 1 amp Amlodipine Besylate (Norvasc -) 10 mg PO DAILY [facility] Last Admin: 10/19/18 10:07 Dose: 10 mg Escitalopram Oxalate (Lexapro -) 10 mg PO DAILY [facility] Last Admin: 10/19/18 10:07 Dose: 10 mg Guaifenesin (Robitussin -) 10 ml PO Q6H PRN PRN Reason: COUGH Last Admin: 10/13/18 13:15 Dose: 10 ml Hydralazine HCl (Apresoline -) 50 mg PO BID [facility] Last Admin: 10/19/18 10:07 Dose: 50 mg Piperacillin Sod/Tazobactam (Sod 2.25 gm/ Dextrose) 50 mls @ 100 mls/hr IVPB Q8H-IV [facility]; Protocol Last Admin: 10/19/18 17:32 Dose: 100 mls/hr Insulin Aspart (Novolog Vial Sliding Scale -) 1 vial SQ TIDAC [facility]; Protocol Last Admin: 10/19/18 17:32 Dose: 6 units Metoprolol Succinate (Toprol Xl -) 50 mg PO DAILY [facility] Last Admin: 10/19/18 10:07 Dose: 50 mg Pantoprazole Sodium (Protonix -) 40 mg PO DAILY [facility] Last Admin: 10/19/18 10:07 Dose: 40 mg Prednisone (Deltasone -) 40 mg PO DAILY [facility] Last Admin: 10/19/18 10:07 Dose: 40 mg Rosuvastatin Calcium (Crestor -) 10 mg PO HS [facility] Last Admin: 10/18/18 21:57 Dose: 10 mg Sevelamer Carbonate (Renvela -) 800 mg PO TIDCM [facility] Last Admin: 10/19/18 17:32 Dose: 800 mg - Objective Vital Signs: Vital Signs Temperature 98.1 F 10/19/18 06:00 Pulse Rate 81 10/19/18 06:00 Respiratory Rate 20 10/19/18 10:00 Blood Pressure 144/90 10/19/18 06:00 O2 Sat by Pulse Oximetry (%) 100 10/19/18 10:00 Neck: Yes: WNL, Supple Cardiovascular: Yes: Tachycardia Respiratory: Yes: Rhonchi Gastrointestinal: Yes: WNL, Normal Bowel Sounds, Soft Labs: CBC, BMP 10/18/18 05:45 10/18/18 05:45 Problem List - Problems (1) Pneumonia Assessment/Plan: CXR 10/12/18 did not show much improvement Cont IV zosyn and po prednisone Cont nebulizers Cont BIPAP CY scan chest showed b/p pleural effsuions Pt for throacentesis in am Code(s): J18.9 - PNEUMONIA, UNSPECIFIED ORGANISM (2) Acute on chronic systolic (congestive) heart failure Assessment/Plan: Lasix on hold due to increasing creatinine and decreasing sodium As per cardio Code(s): I50.23 - ACUTE ON CHRONIC SYSTOLIC (CONGESTIVE) HEART FAILURE (3) CKD (chronic kidney disease) Assessment/Plan: Renal consult Code(s): N18.9 - CHRONIC KIDNEY DISEASE, UNSPECIFIED (4) HTN (hypertension) Assessment/Plan: BP stable Cont metoprolol/lisinopril Code(s): I10 - ESSENTIAL (PRIMARY) HYPERTENSION (5) HLD (hyperlipidemia) Assessment/Plan: Cont crestor Code(s): E78.5 - HYPERLIPIDEMIA, UNSPECIFIED (6) Osteoarthritis Code(s): M19.90 - UNSPECIFIED OSTEOARTHRITIS, UNSPECIFIED SITE Qualifiers: Osteoarthritis location: knee Osteoarthritis type: unspecified Laterality : right Qualified Code(s): M17.11 - Unilateral primary osteoarthritis, right knee (7) CAD (coronary artery disease) Assessment/Plan: Cont plavix Code(s): I25.10 - ATHSCL HEART DISEASE OF [place] CORONARY ARTERY W/O ANG PCTRS
[2018-10-19] MEDS: ROSUVASTATIN CA 10 MG TABLET (FP) PO SCH (21:53)
[2018-10-20] MEDS ORDERED: DEXTROSE 5%-WATER - 50 ML IVPB ONE ×3 (01:17→17:04)
[2018-10-20] MEDS ORDERED: PIPERACILLIN/TAZOBACTAM 2.25 GM VIAL IVPB ONE ×3 (01:17→17:03)
[2018-10-20] MEDS: PIPERACILLIN/TAZOB 2.25 GM 2.25 GM in DEXTROSE 5%-WATER - 50 ML IVPB SCH ×3 (01:58→17:12)
[2018-10-20] MEDS: INSULIN SLIDING SCALE (NOVOLOG) 1 VIAL SQ SCH ×3 (06:17→17:10)
[2018-10-20 06:58] LABS: HEMATOCRIT 32.1 % (32.4-45.2); HEMOGLOBIN 10.3 GM/dL (10.7-15.3); MCHC 32.2 g/dl (32.0-36.0); MEAN CELL VOLUME 83.8 fl (80-96); MEAN PLT VOLUME 7.5 fl (7.5-11.1); RBC 3.83 M/mm3 (3.60-5.2); RDW 14.1 % (11.6-15.6); WHITE BLOOD COUNT 17.8 K/mm3 (4.0-10.0)
[2018-10-20 07:23] LABS: ALBUMIN 2.6 g/dl (3.4-5.0); BILIRUBIN,TOTAL 0.5 mg/dL (0.2-1); BLOOD UREA NITROGEN 49.7 mg/dL (7-18); CALCIUM 9.5 mg/dL (8.5-10.1); CREATININE 2.3 mg/dL (0.55-1.3); POTASSIUM 4.7 mmol/L (3.5-5.1); TOT PROT 6.4 g/dl (6.4-8.2)
[2018-10-20] MEDS: ALBUTEROL SO4 0.083% IH SOL 2.5 MG/3 ML VIAL.NEB. NEB SCH ×4 (08:18→20:50)
[2018-10-20] MEDS: ACETYLCYSTEINE 20% 200MG/ML 4 ML VIAL *FOR ORAL / INH USE ONLY NEB SCH ×4 (08:19→20:50)
[2018-10-20 08:26] LABS: PLATELET COUNT 388 K/MM3 (134-434)
[2018-10-20] MEDS ORDERED: PT OWN MED DRAWER 7, Y5N ONE (09:44)
--- NOTE | 2018-10-20 09:49 | PN ---
Progress Note, Physician Chief Complaint: sob History of Present Illness: pt denies sob. family notes intermittent mild prolonged inspiration/expiration. denies cp, palpit, leg swelling - Current Medication List Current Medications: Active Medications Acetaminophen (Tylenol -) 650 mg PO Q6H PRN PRN Reason: FEVER Last Admin: 10/18/18 21:57 Dose: 650 mg Acetylcysteine (Mucomyst 20 Oral / Inh Use Only*) 200 mg NEB RQID [facility] Last Admin: 10/20/18 08:19 Dose: 200 mg Albuterol Sulfate (Ventolin 0.083% Nebulizer Soln -) 1 amp NEB RQID [facility] Last Admin: 10/20/18 08:18 Dose: 1 amp Amlodipine Besylate (Norvasc -) 10 mg PO DAILY [facility] Last Admin: 10/19/18 10:07 Dose: 10 mg Escitalopram Oxalate (Lexapro -) 10 mg PO DAILY [facility] Last Admin: 10/19/18 10:07 Dose: 10 mg Guaifenesin (Robitussin -) 10 ml PO Q6H PRN PRN Reason: COUGH Last Admin: 10/13/18 13:15 Dose: 10 ml Hydralazine HCl (Apresoline -) 50 mg PO BID [facility] Last Admin: 10/19/18 21:53 Dose: 50 mg Piperacillin Sod/Tazobactam (Sod 2.25 gm/ Dextrose) 50 mls @ 100 mls/hr IVPB Q8H-IV [facility]; Protocol Last Admin: 10/20/18 01:58 Dose: 100 mls/hr Insulin Aspart (Novolog Vial Sliding Scale -) 1 vial SQ TIDAC [facility]; Protocol Last Admin: 10/20/18 06:17 Dose: 2 units Metoprolol Succinate (Toprol Xl -) 50 mg PO DAILY [facility] Last Admin: 10/19/18 10:07 Dose: 50 mg Pantoprazole Sodium (Protonix -) 40 mg PO DAILY [facility] Last Admin: 10/19/18 10:07 Dose: 40 mg Prednisone (Deltasone -) 40 mg PO DAILY [facility] Last Admin: 10/19/18 10:07 Dose: 40 mg Rosuvastatin Calcium (Crestor -) 10 mg PO HS [facility] Last Admin: 10/19/18 21:53 Dose: 10 mg Sevelamer Carbonate (Renvela -) 800 mg PO TIDCM [facility] Last Admin: 10/19/18 17:32 Dose: 800 mg - Objective Vital Signs: Vital Signs Temperature 97.6 F 10/20/18 05:34 Pulse Rate 83 10/20/18 05:34 Respiratory Rate 18 10/20/18 05:34 Blood Pressure 148/63 10/20/18 05:34 O2 Sat by Pulse Oximetry (%) 96 10/19/18 21:00 Constitutional: Yes: No Distress, Calm, Obese Cardiovascular: Yes: Regular Rate and Rhythm, S1, S2. No: JVD (tds habitus), Gallop, Murmur Respiratory: Yes: CTA Bilaterally, Diminished (L base). No: Rales, Wheezes Extremities: No: Cold Edema: No Neurological: Yes: Alert. No: Seizure Psychiatric: No: Agitated Labs: CBC, BMP 10/20/18 06:05 10/20/18 06:05 Assessment/Plan Echo: LVSF appears mldly reduced, 40-45%. nl RV. mild MR. Acute on chronic systolic CHF, pleural effusion, ? PNA/parapneumonic effusion: -after diuresis BUN/Creat worsening, hyponatremia worsening. Thus lasix stopped as it seemed more likely her pulm findings are pna related, cont holding lasix -cont bb. marjan held for ruth -thoracentesis (diagnostic and therapeutic) possibly today--timing per IR (last dose plavix 10/16) Suspected underlying CAD: -no signs acs -pt/family have declined cath due to MIKE risks (see prior dr welsh notes) RUTH on CKD: -baseline creat 1.5-2.0 -renal fxn worsened here, likely due to diuresis -renal fxn essentially stable today vs yest--cont to hold lasix and monitor cr trend--stable htn: -was running elevated, increased hydralazine to 50 mg BID -cont bb, ccb. -reasonably controlled now NSVT: -cont bb -sinus tachycardia noted on tele - likely in setting of PNA Altered MS: -head ct w/o acute changes -Likely due to Ativan, improved.
[2018-10-20] MEDS: hydrALAZINE HCL 25 MG TABLET (FP) PO SCH ×2 (09:58→22:04)
[2018-10-20] MEDS: ESCITALOPRAM OXALATE 10 MG TABLET (FP) PO SCH (09:58)
[2018-10-20] MEDS: predniSONE 20 MG TABLET (UD) PO SCH (09:58)
[2018-10-20] MEDS: amLODIPine BESYLATE 10 MG TABLET (FP) PO SCH (09:58)
[2018-10-20] MEDS: PANTOPRAZOLE 40 MG TABLET (FP) PO SCH (09:59)
[2018-10-20] MEDS: metoPROLOL SUCCINATE 25 MG TAB.SR.24H (FP) PO SCH (09:59)
[2018-10-20] MEDS: SEVELAMER CARBONATE 800 MG TAB (FP) PO SCH ×3 (09:59→17:11)
--- NOTE | 2018-10-20 12:07 | PN ---
Progress Note (short form) - Note Progress Note: PULMONARY Breathing and cough improving. No fevers or chills. Vital Signs Period Temp Pulse Resp BP Sys/Vasquez Pulse Ox Last 24 Hr 97.5 F-97.6 F 78-84 18-22 141-155/63-78 96 Intake & Output 10/17/18 10/18/18 10/19/18 10/20/18 23:59 23:59 23:59 23:59 Intake Total 550 300 800 70 Balance 550 300 800 70 Weight 69.031 kg Gen: mildly tachypneic at rest Heart: RRR Lung: scattered rhonchi, wheezes Abd: soft, nontender Ext: no edema CBC, BMP 10/20/18 06:05 10/20/18 06:05 Active Medications Acetaminophen (Tylenol -) 650 mg PO Q6H PRN PRN Reason: FEVER Last Admin: 10/18/18 21:57 Dose: 650 mg Acetylcysteine (Mucomyst 20 Oral / Inh Use Only*) 200 mg NEB RQID [facility] Last Admin: 10/20/18 11:49 Dose: 200 mg Albuterol Sulfate (Ventolin 0.083% Nebulizer Soln -) 1 amp NEB RQID [facility] Last Admin: 10/20/18 11:48 Dose: 1 amp Amlodipine Besylate (Norvasc -) 10 mg PO DAILY [facility] Last Admin: 10/20/18 09:58 Dose: 10 mg Escitalopram Oxalate (Lexapro -) 10 mg PO DAILY [facility] Last Admin: 10/20/18 09:58 Dose: 10 mg Guaifenesin (Robitussin -) 10 ml PO Q6H PRN PRN Reason: COUGH Last Admin: 10/13/18 13:15 Dose: 10 ml Hydralazine HCl (Apresoline -) 50 mg PO BID [facility] Last Admin: 10/20/18 09:58 Dose: 50 mg Piperacillin Sod/Tazobactam (Sod 2.25 gm/ Dextrose) 50 mls @ 100 mls/hr IVPB Q8H-IV [facility]; Protocol Last Admin: 10/20/18 09:57 Dose: 100 mls/hr Insulin Aspart (Novolog Vial Sliding Scale -) 1 vial SQ TIDAC [facility]; Protocol Last Admin: 10/20/18 12:05 Dose: 6 units Metoprolol Succinate (Toprol Xl -) 50 mg PO DAILY [facility] Last Admin: 10/20/18 09:59 Dose: 50 mg Pantoprazole Sodium (Protonix -) 40 mg PO DAILY [facility] Last Admin: 10/20/18 09:59 Dose: 40 mg Prednisone (Deltasone -) 40 mg PO DAILY [facility] Last Admin: 10/20/18 09:58 Dose: 40 mg Rosuvastatin Calcium (Crestor -) 10 mg PO HS [facility] Last Admin: 10/19/18 21:53 Dose: 10 mg Sevelamer Carbonate (Renvela -) 800 mg PO TIDCM [facility] Last Admin: 10/20/18 12:04 Dose: 800 mg A/P Acute on Chronic Systolic Heart Failure Pneumonia Pleural Effusions Acute on Chronic Renal Failure HTN DM Hyperlipidemia h/o CVA - for diagnostic/therapeutic thoracentesis - continue antibiotics - prednisone taper - inhaled bronchodilators - BiPAP as needed - O2 to keep spO2 >90% - DVT prophylaxis
--- NOTE | 2018-10-20 17:04 | PN ---
Progress Note (short form) - Note Progress Note: Renal follow up for JACK/Fluid overload Pt seen and examined at the bedside awake and alert, confused no overnight events on NC O2 Vital Signs Temperature 98 F 10/20/18 14:00 Pulse Rate 88 10/20/18 14:00 Respiratory Rate 18 10/20/18 14:00 Blood Pressure 152/76 10/20/18 14:00 O2 Sat by Pulse Oximetry (%) 98 10/20/18 15:20 Intake & Output 10/17/18 10/18/18 10/19/18 10/20/18 23:59 23:59 23:59 23:59 Intake Total 550 300 800 590 Balance 550 300 800 590 Weight 69.031 kg NAD on BIPAP RRR course BS soft NT/ND no LE or sacral edema CBC, BMP 10/20/18 06:05 10/20/18 06:05 Current Medications Acetaminophen (Tylenol -) 650 mg PO Q6H PRN PRN Reason: FEVER Last Admin: 10/18/18 21:57 Dose: 650 mg Acetylcysteine (Mucomyst 20 Oral / Inh Use Only*) 200 mg NEB RQID [facility] Last Admin: 10/20/18 15:20 Dose: 200 mg Albuterol Sulfate (Ventolin 0.083% Nebulizer Soln -) 1 amp NEB RQID [facility] Last Admin: 10/20/18 15:20 Dose: 1 amp Amlodipine Besylate (Norvasc -) 10 mg PO DAILY [facility] Last Admin: 10/20/18 09:58 Dose: 10 mg Escitalopram Oxalate (Lexapro -) 10 mg PO DAILY [facility] Last Admin: 10/20/18 09:58 Dose: 10 mg Guaifenesin (Robitussin -) 10 ml PO Q6H PRN PRN Reason: COUGH Last Admin: 10/13/18 13:15 Dose: 10 ml Hydralazine HCl (Apresoline -) 50 mg PO BID [facility] Last Admin: 10/20/18 09:58 Dose: 50 mg Piperacillin Sod/Tazobactam (Sod 2.25 gm/ Dextrose) 50 mls @ 100 mls/hr IVPB Q8H-IV [facility]; Protocol Insulin Aspart (Novolog Vial Sliding Scale -) 1 vial SQ TIDAC [facility]; Protocol Last Admin: 10/20/18 12:05 Dose: 6 units Metoprolol Succinate (Toprol Xl -) 50 mg PO DAILY [facility] Last Admin: 10/20/18 09:59 Dose: 50 mg Pantoprazole Sodium (Protonix -) 40 mg PO DAILY [facility] Last Admin: 10/20/18 09:59 Dose: 40 mg Prednisone (Deltasone -) 30 mg PO DAILY [facility] Rosuvastatin Calcium (Crestor -) 10 mg PO HS [facility] Last Admin: 10/19/18 21:53 Dose: 10 mg Sevelamer Carbonate (Renvela -) 800 mg PO TIDCM [facility] Last Admin: 10/20/18 12:04 Dose: 800 mg 88 year old woman with hx of CKD stage 3 (baseline Cr 1.4-1.6), CHF, HTN, HLD, DM, CAD who presented with sob and admitted for CHF exacerbation witih JACK on CKD. #JACK on CKD #Hyponatremia #CHF exacerbation vs. acute PNA #Hypertension #CAD #DM #Anemia Renal function essentially stable no overt hyperkalemia, acidosis to warrant dialysis urine output not documented as pt is incontinent CT lungs showed R> L effusion (etiology of effusion unclear, related to HF/CKD vs. PNA related) for thoracentesis (diagnostic and therapeutic) if any change in respiratory status can give IV Lasix as needed suspect that pt develops intravascular volume depletion (low albumin) in setting of diuretic use and thats why the BUN/Cr rise with diuretics unlikely to mobilize all off the effusion with diuretics alone maintain on fluid restriction of 1L daily Trend renal function and electrolytes daily Thank you Javon Cota DO
--- NOTE | 2018-10-20 18:18 | PN ---
Progress Note (short form) - Note Progress Note: Patient chart reviewed, medications reviewed Hx also obtained from daughter who was present at bedside. According to daughter, Ms. Colby gets a little agitated at nights only and her sleep is fragmented . Daughter, attributes her behavior to long stay at the hospital and to steriods . She is here, q night at her mother's bedside to calm her mother down during the nights when she has these episodes. Patient's daughter does not want her mother to have any benzo, or any increase in medications for behavior/ sleep or depression. After talking to patient and family, it was agreed that she is already on an antidepressant and will continue escitaloprom 10 mgs daily. Patient denies ongong depressive symptoms but does admit that she is fed up of being here for so long. No Patient was awake, and fully oriented,Kiswahili speakin only Mood was calm affect was congruent. Speech was logical coherent Thought process/content nl No suicidal/homicidal ideation A/P Paient will continue Escitalopram at 10 mgs Defer any meds for sleep at this time - family is objecting
--- NOTE | 2018-10-20 20:54 | PN ---
Progress Note, Physician History of Present Illness: awake son at bedside - Current Medication List Current Medications: Active Medications Acetaminophen (Tylenol -) 650 mg PO Q6H PRN PRN Reason: FEVER Last Admin: 10/18/18 21:57 Dose: 650 mg Acetylcysteine (Mucomyst 20 Oral / Inh Use Only*) 200 mg NEB RQID [facility] Last Admin: 10/20/18 15:20 Dose: 200 mg Albuterol Sulfate (Ventolin 0.083% Nebulizer Soln -) 1 amp NEB RQID [facility] Last Admin: 10/20/18 15:20 Dose: 1 amp Amlodipine Besylate (Norvasc -) 10 mg PO DAILY [facility] Last Admin: 10/20/18 09:58 Dose: 10 mg Escitalopram Oxalate (Lexapro -) 10 mg PO DAILY [facility] Last Admin: 10/20/18 09:58 Dose: 10 mg Guaifenesin (Robitussin -) 10 ml PO Q6H PRN PRN Reason: COUGH Last Admin: 10/13/18 13:15 Dose: 10 ml Hydralazine HCl (Apresoline -) 50 mg PO BID [facility] Last Admin: 10/20/18 09:58 Dose: 50 mg Piperacillin Sod/Tazobactam (Sod 2.25 gm/ Dextrose) 50 mls @ 100 mls/hr IVPB Q8H-IV [facility]; Protocol Last Admin: 10/20/18 17:12 Dose: 100 mls/hr Insulin Aspart (Novolog Vial Sliding Scale -) 1 vial SQ TIDAC [facility]; Protocol Last Admin: 10/20/18 17:10 Dose: 4 units Metoprolol Succinate (Toprol Xl -) 50 mg PO DAILY [facility] Last Admin: 10/20/18 09:59 Dose: 50 mg Pantoprazole Sodium (Protonix -) 40 mg PO DAILY [facility] Last Admin: 10/20/18 09:59 Dose: 40 mg Prednisone (Deltasone -) 30 mg PO DAILY [facility] Rosuvastatin Calcium (Crestor -) 10 mg PO HS [facility] Last Admin: 10/19/18 21:53 Dose: 10 mg Sevelamer Carbonate (Renvela -) 800 mg PO TIDCM [facility] Last Admin: 10/20/18 17:11 Dose: 800 mg - Objective Vital Signs: Vital Signs Temperature 97.7 F 10/20/18 18:20 Pulse Rate 79 10/20/18 18:20 Respiratory Rate 18 10/20/18 18:20 Blood Pressure 139/77 10/20/18 18:20 O2 Sat by Pulse Oximetry (%) 98 10/20/18 15:20 Constitutional: Yes: No Distress HENT: Yes: Atraumatic Neck: Yes: Supple Cardiovascular: Yes: Regular Rate and Rhythm Respiratory: Yes: Rhonchi Gastrointestinal: Yes: Normal Bowel Sounds Extremities: Yes: WNL Neurological: Yes: Alert, Oriented Labs: CBC, BMP 10/20/18 06:05 10/20/18 06:05 Problem List - Problems (1) Acute on chronic systolic (congestive) heart failure Code(s): I50.23 - ACUTE ON CHRONIC SYSTOLIC (CONGESTIVE) HEART FAILURE (2) Pneumonia Code(s): J18.9 - PNEUMONIA, UNSPECIFIED ORGANISM (3) Acute renal failure (ARF) Code(s): N17.9 - ACUTE KIDNEY FAILURE, UNSPECIFIED Qualifiers: Acute renal failure type: unspecified Qualified Code(s): N17.9 - Acute kidney failure, unspecified (4) CAD (coronary artery disease) Code(s): I25.10 - ATHSCL HEART DISEASE OF [place] CORONARY ARTERY W/O ANG PCTRS (5) Chronic kidney disease Code(s): N18.9 - CHRONIC KIDNEY DISEASE, UNSPECIFIED Qualifiers: Chronic kidney disease stage: unspecified stage Qualified Code(s): N18.9 - Chronic kidney disease, unspecified (6) Diabetes Code(s): E11.9 - TYPE 2 DIABETES MELLITUS WITHOUT COMPLICATIONS Qualifiers: Diabetes mellitus type: type 2 (7) HLD (hyperlipidemia) Code(s): E78.5 - HYPERLIPIDEMIA, UNSPECIFIED (8) HTN (hypertension) Code(s): I10 - ESSENTIAL (PRIMARY) HYPERTENSION Assessment/Plan A/P Acute on Chronic Systolic Heart Failure Pneumonia Pleural Effusions Acute on Chronic Renal Failure HTN DM Hyperlipidemia h/o CVA - for diagnostic/therapeutic thoracentesis - continue antibiotics - prednisone taper - inhaled bronchodilators - BiPAP as needed - O2 to keep spO2 >90% - DVT prophylaxis COVERING FOR DR MEJIA
[2018-10-20] MEDS: ROSUVASTATIN CA 10 MG TABLET (FP) PO SCH (22:04)
[2018-10-21] MEDS ORDERED: PIPERACILLIN/TAZOBACTAM 2.25 GM VIAL IVPB ONE ×3 (01:19→16:35)
[2018-10-21] MEDS ORDERED: DEXTROSE 5%-WATER - 50 ML IVPB ONE ×3 (01:19→16:36)
[2018-10-21] MEDS: PIPERACILLIN/TAZOB 2.25 GM 2.25 GM in DEXTROSE 5%-WATER - 50 ML IVPB SCH ×3 (01:27→16:59)
[2018-10-21] MEDS: INSULIN SLIDING SCALE (NOVOLOG) 1 VIAL SQ SCH ×3 (06:34→16:45)
[2018-10-21] MEDS: ACETYLCYSTEINE 20% 200MG/ML 4 ML VIAL *FOR ORAL / INH USE ONLY NEB SCH ×4 (08:18→20:30)
[2018-10-21] MEDS: ALBUTEROL SO4 0.083% IH SOL 2.5 MG/3 ML VIAL.NEB. NEB SCH ×4 (08:19→20:31)
[2018-10-21] MEDS: metoPROLOL SUCCINATE 25 MG TAB.SR.24H (FP) PO SCH (09:50)
[2018-10-21] MEDS: SEVELAMER CARBONATE 800 MG TAB (FP) PO SCH ×3 (09:50→16:54)
[2018-10-21] MEDS: PANTOPRAZOLE 40 MG TABLET (FP) PO SCH (09:51)
[2018-10-21] MEDS: predniSONE 20 MG TABLET (UD) PO SCH (09:51)
[2018-10-21] MEDS: ESCITALOPRAM OXALATE 10 MG TABLET (FP) PO SCH (09:51)
[2018-10-21] MEDS: amLODIPine BESYLATE 10 MG TABLET (FP) PO SCH (09:51)
[2018-10-21] MEDS: hydrALAZINE HCL 25 MG TABLET (FP) PO SCH ×2 (09:54→22:21)
--- NOTE | 2018-10-21 11:12 | PN ---
Progress Note (short form) - Note Progress Note: s: family notes intermittent confusion, complains of abd pain. No palps, dizziness. Current Medications Acetaminophen (Tylenol -) 650 mg PO Q6H PRN PRN Reason: FEVER Last Admin: 10/18/18 21:57 Dose: 650 mg Acetylcysteine (Mucomyst 20 Oral / Inh Use Only*) 200 mg NEB RQID [facility] Last Admin: 10/21/18 08:18 Dose: 200 mg Albuterol Sulfate (Ventolin 0.083% Nebulizer Soln -) 1 amp NEB RQID [facility] Last Admin: 10/21/18 08:19 Dose: 1 amp Amlodipine Besylate (Norvasc -) 10 mg PO DAILY [facility] Last Admin: 10/21/18 09:51 Dose: 10 mg Escitalopram Oxalate (Lexapro -) 10 mg PO DAILY [facility] Last Admin: 10/21/18 09:51 Dose: 10 mg Guaifenesin (Robitussin -) 10 ml PO Q6H PRN PRN Reason: COUGH Last Admin: 10/13/18 13:15 Dose: 10 ml Hydralazine HCl (Apresoline -) 50 mg PO BID [facility] Last Admin: 10/21/18 09:54 Dose: 50 mg Piperacillin Sod/Tazobactam (Sod 2.25 gm/ Dextrose) 50 mls @ 100 mls/hr IVPB Q8H-IV [facility]; Protocol Last Admin: 10/21/18 09:49 Dose: 100 mls/hr Insulin Aspart (Novolog Vial Sliding Scale -) 1 vial SQ TIDAC [facility]; Protocol Last Admin: 10/21/18 06:34 Dose: 2 units Metoprolol Succinate (Toprol Xl -) 50 mg PO DAILY [facility] Last Admin: 10/21/18 09:50 Dose: 50 mg Pantoprazole Sodium (Protonix -) 40 mg PO DAILY [facility] Last Admin: 10/21/18 09:51 Dose: 40 mg Prednisone (Deltasone -) 30 mg PO DAILY [facility] Last Admin: 10/21/18 09:51 Dose: 30 mg Rosuvastatin Calcium (Crestor -) 10 mg PO HS [facility] Last Admin: 10/20/18 22:04 Dose: 10 mg Sevelamer Carbonate (Renvela -) 800 mg PO TIDCM [facility] Last Admin: 10/21/18 09:50 Dose: 800 mg Vital Signs Period Temp Pulse Resp BP Sys/Vasquez Pulse Ox Last 24 Hr 97.6 F-98.0 F 79-88 18-18 139-165/76-86 98-99 Constitutional: Yes: No Distress, Calm, Obese Cardiovascular: Yes: Regular Rate and Rhythm, S1, S2. No: JVD (tds habitus), Gallop, Murmur Respiratory: Yes: CTA Bilaterally, Diminished (L base). No: Rales, Wheezes Extremities: No: Cold Edema: No Neurological: Yes: Alert. No: Seizure Psychiatric: No: Agitated Assessment/Plan Echo: LVSF appears mldly reduced, 40-45%. nl RV. mild MR. Acute on chronic systolic CHF, pleural effusion, ? PNA/parapneumonic effusion: -after diuresis BUN/Creat worsening, hyponatremia worsening. Thus lasix stopped as it seemed more likely her pulm findings are pna related, cont holding lasix -cont bb. marjan held for ruth -thoracentesis (diagnostic and therapeutic) - timing per IR (last dose plavix ) Suspected underlying CAD: -no signs acs -pt/family have declined cath due to MIKE risks (see prior dr welsh notes) RUTH on CKD: -baseline creat 1.5-2.0 -renal fxn worsened here, likely due to diuresis -renal fxn essentially stable today vs yest--cont to hold lasix and monitor cr trend--stable htn: -was running elevated, increased hydralazine to 50 mg BID -cont bb, ccb. -reasonably controlled now NSVT: -cont bb -sinus tachycardia noted on tele - likely in setting of PNA Altered MS: -head ct w/o acute changes -Likely due to Ativan, improved.
--- NOTE | 2018-10-21 12:23 | PN ---
Progress Note, Physician History of Present Illness: pulmonary DROWSY,CONFUSED -RESP DISTRESS - Current Medication List Current Medications: Active Medications Acetaminophen (Tylenol -) 650 mg PO Q6H PRN PRN Reason: FEVER Last Admin: 10/18/18 21:57 Dose: 650 mg Acetylcysteine (Mucomyst 20 Oral / Inh Use Only*) 200 mg NEB RQID [facility] Last Admin: 10/21/18 12:12 Dose: 200 mg Albuterol Sulfate (Ventolin 0.083% Nebulizer Soln -) 1 amp NEB RQID [facility] Last Admin: 10/21/18 12:11 Dose: 1 amp Amlodipine Besylate (Norvasc -) 10 mg PO DAILY [facility] Last Admin: 10/21/18 09:51 Dose: 10 mg Escitalopram Oxalate (Lexapro -) 10 mg PO DAILY [facility] Last Admin: 10/21/18 09:51 Dose: 10 mg Guaifenesin (Robitussin -) 10 ml PO Q6H PRN PRN Reason: COUGH Last Admin: 10/13/18 13:15 Dose: 10 ml Hydralazine HCl (Apresoline -) 50 mg PO BID [facility] Last Admin: 10/21/18 09:54 Dose: 50 mg Piperacillin Sod/Tazobactam (Sod 2.25 gm/ Dextrose) 50 mls @ 100 mls/hr IVPB Q8H-IV [facility]; Protocol Last Admin: 10/21/18 09:49 Dose: 100 mls/hr Insulin Aspart (Novolog Vial Sliding Scale -) 1 vial SQ TIDAC [facility]; Protocol Last Admin: 10/21/18 06:34 Dose: 2 units Metoprolol Succinate (Toprol Xl -) 50 mg PO DAILY [facility] Last Admin: 10/21/18 09:50 Dose: 50 mg Pantoprazole Sodium (Protonix -) 40 mg PO DAILY [facility] Last Admin: 10/21/18 09:51 Dose: 40 mg Prednisone (Deltasone -) 30 mg PO DAILY [facility] Last Admin: 10/21/18 09:51 Dose: 30 mg Rosuvastatin Calcium (Crestor -) 10 mg PO HS [facility] Last Admin: 10/20/18 22:04 Dose: 10 mg Sevelamer Carbonate (Renvela -) 800 mg PO TIDCM [facility] Last Admin: 10/21/18 09:50 Dose: 800 mg - Objective Vital Signs: Vital Signs Temperature 97.9 F 10/21/18 08:59 Pulse Rate 83 10/21/18 08:59 Respiratory Rate 18 10/21/18 08:59 Blood Pressure 165/79 10/21/18 08:59 O2 Sat by Pulse Oximetry (%) 97 10/21/18 12:11 Constitutional: Yes: Well Nourished, Other (DROWSY) Eyes: Yes: WNL HENT: Yes: WNL Neck: Yes: WNL Cardiovascular: Yes: Regular Rate and Rhythm, S1 Respiratory: Yes: Rhonchi (SCATTERED CONCEPCION RHONCHI) Gastrointestinal: Yes: Normal Bowel Sounds, Soft Extremities: Yes: WNL Edema: No Labs: CBC, BMP 10/20/18 06:05 Assessment/Plan IMP DYSPNEA ACUTE ON CHRONIC CHF ACUTE ON CHRONIC KIDNEY DISEASE ? ASHD HTN DM HLD H/O CVA PNEUMONIA HYPONATREMIA OPACIFICATION LEFT HEMITHORAX ATELECTASIS/EFFUSION PLAN LASIX PER CARDIOLOGY DAILY WT SUPPLEMENTAL O2 INHALED BRONCHODILATORS PRN MONITOR LYTES,RENAL FUNCTION,NA PREDNISONE ABX PER ID BIPAP NEEDED CHEST PT THORACENTESIS/PIGTAIL CATH AM F/U CHEST X-RAY DR RENEE
[2018-10-21] MEDS: ROSUVASTATIN CA 10 MG TABLET (FP) PO SCH (22:21)
[2018-10-22] MEDS ORDERED: DEXTROSE 5%-WATER - 50 ML IVPB ONE ×3 (02:22→16:15)
[2018-10-22] MEDS ORDERED: PIPERACILLIN/TAZOBACTAM 2.25 GM VIAL IVPB ONE ×3 (02:22→16:14)
[2018-10-22] MEDS: PIPERACILLIN/TAZOB 2.25 GM 2.25 GM in DEXTROSE 5%-WATER - 50 ML IVPB SCH ×3 (02:25→17:11)
--- NOTE | 2018-10-22 02:31 | PN ---
Progress Note, Physician History of Present Illness: Pt was seen and examined on 10/21/18 however note is being entered now - Current Medication List Current Medications: Active Medications Acetaminophen (Tylenol -) 650 mg PO Q6H PRN PRN Reason: FEVER Last Admin: 10/18/18 21:57 Dose: 650 mg Acetylcysteine (Mucomyst 20 Oral / Inh Use Only*) 200 mg NEB RQID [facility] Last Admin: 10/21/18 20:30 Dose: 200 mg Albuterol Sulfate (Ventolin 0.083% Nebulizer Soln -) 1 amp NEB RQID [facility] Last Admin: 10/21/18 20:31 Dose: 1 amp Amlodipine Besylate (Norvasc -) [address] [facility] Last Admin: 10/21/18 09:51 Dose: 10 mg Escitalopram Oxalate (Lexapro -) 10 mg PO DAILY [facility] Last Admin: 10/21/18 09:51 Dose: 10 mg Guaifenesin (Robitussin -) 10 ml PO Q6H PRN PRN Reason: COUGH Last Admin: 10/13/18 13:15 Dose: 10 ml Hydralazine HCl (Apresoline -) 50 mg PO BID [facility] Last Admin: 10/21/18 22:21 Dose: 50 mg Piperacillin Sod/Tazobactam (Sod 2.25 gm/ Dextrose) 50 mls @ 100 mls/hr IVPB Q8H-IV [facility]; Protocol Last Admin: 10/22/18 02:25 Dose: 100 mls/hr Insulin Aspart (Novolog Vial Sliding Scale -) [address] [facility]; Protocol Last Admin: 10/21/18 16:45 Dose: 4 units Metoprolol Succinate (Toprol Xl -) 50 mg PO DAILY [facility] Last Admin: 10/21/18 09:50 Dose: 50 mg Pantoprazole Sodium (Protonix -) 40 mg PO DAILY [facility] Last Admin: 10/21/18 09:51 Dose: 40 mg Prednisone (Deltasone -) 30 mg PO DAILY [facility] Last Admin: 10/21/18 09:51 Dose: 30 mg Rosuvastatin Calcium (Crestor -) 10 mg PO HS [facility] Last Admin: 10/21/18 22:21 Dose: 10 mg Sevelamer Carbonate (Renvela -) 800 mg PO TIDCM [facility] Last Admin: 10/21/18 16:54 Dose: 800 mg - Objective Vital Signs: Vital Signs Temperature 97.5 F L 10/21/18 17:50 Pulse Rate 78 10/21/18 17:50 Respiratory Rate 18 10/21/18 21:00 Blood Pressure 148/65 10/21/18 17:50 O2 Sat by Pulse Oximetry (%) 95 10/22/18 00:17 Neck: Yes: WNL, Supple Cardiovascular: Yes: WNL, Regular Rate and Rhythm Respiratory: Yes: Rhonchi Gastrointestinal: Yes: WNL, Normal Bowel Sounds, Soft Edema: No Labs: CBC, BMP 10/20/18 06:05 10/20/18 06:05 Problem List - Problems (1) Pneumonia Assessment/Plan: CXR 10/12/18 did not show much improvement Cont IV zosyn and po prednisone Cont nebulizers Cont BIPAP CT scan chest showed b/p pleural effsuions Pt for throacentesis in am Code(s): J18.9 - PNEUMONIA, UNSPECIFIED ORGANISM (2) Acute on chronic systolic (congestive) heart failure Assessment/Plan: Lasix on hold due to increasing creatinine and decreasing sodium As per cardio Code(s): I50.23 - ACUTE ON CHRONIC SYSTOLIC (CONGESTIVE) HEART FAILURE (3) CKD (chronic kidney disease) Assessment/Plan: Renal consult Code(s): N18.9 - CHRONIC KIDNEY DISEASE, UNSPECIFIED (4) HTN (hypertension) Assessment/Plan: BP stable Cont metoprolol/lisinopril Code(s): I10 - ESSENTIAL (PRIMARY) HYPERTENSION (5) HLD (hyperlipidemia) Assessment/Plan: Cont crestor Code(s): E78.5 - HYPERLIPIDEMIA, UNSPECIFIED (6) Osteoarthritis Code(s): M19.90 - UNSPECIFIED OSTEOARTHRITIS, UNSPECIFIED SITE Qualifiers: Osteoarthritis location: knee Osteoarthritis type: unspecified Laterality : right Qualified Code(s): M17.11 - Unilateral primary osteoarthritis, right knee (7) CAD (coronary artery disease) Code(s): I25.10 - ATHSCL HEART DISEASE OF [place] CORONARY ARTERY W/O ANG PCTRS
[2018-10-22] MEDS: INSULIN SLIDING SCALE (NOVOLOG) 1 VIAL SQ SCH ×3 (06:34→17:11)
[2018-10-22 06:51] LABS: ALBUMIN 2.7 g/dl (3.4-5.0); BILIRUBIN,TOTAL 0.4 mg/dL (0.2-1); BLOOD UREA NITROGEN 53.1 mg/dL (7-18); CALCIUM 9.5 mg/dL (8.5-10.1); CREATININE 2.5 mg/dL (0.55-1.3); MAGNESIUM 2.6 mg/dL (1.8-2.4); PHOSPHOROUS 4.2 mg/dL (2.5-4.9); POTASSIUM 4.8 mmol/L (3.5-5.1); TOT PROT 6.7 g/dl (6.4-8.2)
[2018-10-22 07:34] LABS: BASO % 0.2 % (0-2.0); EOS % 0.3 % (0-4.5); HEMATOCRIT 31.5 % (32.4-45.2); HEMOGLOBIN 10.2 GM/dL (10.7-15.3); LYMPH % 4.3 % (8-40); MCH 27.3 pg (25.7-33.7); MCHC 32.5 g/dl (32.0-36.0); MEAN CELL VOLUME 83.8 fl (80-96); MEAN PLT VOLUME 7.8 fl (7.5-11.1); NEUT % 88.2 % (42.8-82.8); PLATELET COUNT 329 K/MM3 (134-434); RBC 3.76 M/mm3 (3.60-5.2); RDW 14.5 % (11.6-15.6); WHITE BLOOD COUNT 15.1 K/mm3 (4.0-10.0)
[2018-10-22] MEDS: SEVELAMER CARBONATE 800 MG TAB (FP) PO SCH ×3 (08:16→17:10)
[2018-10-22] MEDS: ALBUTEROL SO4 0.083% IH SOL 2.5 MG/3 ML VIAL.NEB. NEB SCH ×4 (08:42→20:31)
[2018-10-22] MEDS: ACETYLCYSTEINE 20% 200MG/ML 4 ML VIAL *FOR ORAL / INH USE ONLY NEB SCH ×4 (08:44→20:31)
[2018-10-22] MEDS: predniSONE 20 MG TABLET (UD) PO SCH (09:16)
[2018-10-22] MEDS: metoPROLOL SUCCINATE 25 MG TAB.SR.24H (FP) PO SCH (09:17)
[2018-10-22] MEDS: amLODIPine BESYLATE 10 MG TABLET (FP) PO SCH (09:17)
[2018-10-22] MEDS: PANTOPRAZOLE 40 MG TABLET (FP) PO SCH (09:18)
[2018-10-22] MEDS: ESCITALOPRAM OXALATE 10 MG TABLET (FP) PO SCH (09:18)
[2018-10-22] MEDS: hydrALAZINE HCL 25 MG TABLET (FP) PO SCH ×2 (09:18→22:14)
[2018-10-22 10:15] LABS: INR 0.95 (0.83-1.09); PROTHROMBIN TIME (PATIENT) 11.2 SEC (9.7-13.0)
--- NOTE | 2018-10-22 10:44 | PN ---
Progress Note, Physician History of Present Illness: pulmonary alert,still congested ,s/p left thoracentesis - Current Medication List Current Medications: Active Medications Acetaminophen (Tylenol -) 650 mg PO Q6H PRN PRN Reason: FEVER Last Admin: 10/18/18 21:57 Dose: 650 mg Acetylcysteine (Mucomyst 20 Oral / Inh Use Only*) 200 mg NEB RQID [facility] Last Admin: 10/22/18 08:44 Dose: 200 mg Albuterol Sulfate (Ventolin 0.083% Nebulizer Soln -) 1 amp NEB RQID [facility] Last Admin: 10/22/18 08:42 Dose: 1 amp Amlodipine Besylate (Norvasc -) 10 mg PO DAILY [facility] Last Admin: 10/22/18 09:17 Dose: 10 mg Escitalopram Oxalate (Lexapro -) 10 mg PO DAILY [facility] Last Admin: 10/22/18 09:18 Dose: 10 mg Guaifenesin (Robitussin -) 10 ml PO Q6H PRN PRN Reason: COUGH Last Admin: 10/13/18 13:15 Dose: 10 ml Hydralazine HCl (Apresoline -) 50 mg PO BID [facility] Last Admin: 10/22/18 09:18 Dose: 50 mg Piperacillin Sod/Tazobactam (Sod 2.25 gm/ Dextrose) 50 mls @ 100 mls/hr IVPB Q8H-IV [facility]; Protocol Last Admin: 10/22/18 09:19 Dose: 100 mls/hr Insulin Aspart (Novolog Vial Sliding Scale -) 1 vial SQ TIDAC [facility]; Protocol Last Admin: 10/22/18 06:34 Dose: 2 units Metoprolol Succinate (Toprol Xl -) 50 mg PO DAILY [facility] Last Admin: 10/22/18 09:17 Dose: 50 mg Pantoprazole Sodium (Protonix -) 40 mg PO DAILY [facility] Last Admin: 10/22/18 09:18 Dose: 40 mg Prednisone (Deltasone -) 30 mg PO DAILY [facility] Last Admin: 10/22/18 09:16 Dose: 30 mg Rosuvastatin Calcium (Crestor -) 10 mg PO HS [facility] Last Admin: 10/21/18 22:21 Dose: 10 mg Sevelamer Carbonate (Renvela -) 800 mg PO TIDCM [facility] Last Admin: 10/22/18 08:16 Dose: 800 mg - Objective Vital Signs: Vital Signs Temperature 97.8 F 10/22/18 06:00 Pulse Rate 81 10/22/18 06:00 Respiratory Rate 20 10/22/18 09:00 Blood Pressure 156/77 10/22/18 06:00 O2 Sat by Pulse Oximetry (%) 97 10/22/18 09:00 Constitutional: Yes: Well Nourished, Calm Eyes: Yes: WNL HENT: Yes: WNL Neck: Yes: WNL Cardiovascular: Yes: Regular Rate and Rhythm, S1, S2 Respiratory: Yes: Rhonchi (scattered kyle rhonchi) Gastrointestinal: Yes: Normal Bowel Sounds, Soft Extremities: Yes: WNL Edema: No Labs: CBC, BMP 10/22/18 05:50 10/22/18 05:50 INR, PTT INR 0.95 (0.83-1.09) 10/22/18 09:48 - ....Imaging Chest X-ray: Report Reviewed, Image Reviewed Assessment/Plan IMP DYSPNEA ACUTE ON CHRONIC CHF ACUTE ON CHRONIC KIDNEY DISEASE ? ASHD HTN DM HLD H/O CVA PNEUMONIA HYPONATREMIA OPACIFICATION LEFT HEMITHORAX ATELECTASIS/EFFUSION PLAN LASIX PER CARDIOLOGY DAILY WT SUPPLEMENTAL O2 INHALED BRONCHODILATORS PRN MONITOR LYTES,RENAL FUNCTION,NA PREDNISONE BIPAP NEEDED CHEST PT F/U CHEST X-RAY CHECK PLEURAL FLUID CHEMISTRIES/CYTOLOGY DR RENEE
--- NOTE | 2018-10-22 13:17 | PN ---
Progress Note, Physician Chief Complaint: S/p thoracentesis, post procedure CXR w/ small left apical PTX Patient seen and examined, no distress Still little groggy from sedation but seems to be wearing off - Current Medication List Current Medications: Active Medications Acetaminophen (Tylenol -) 650 mg PO Q6H PRN PRN Reason: FEVER Last Admin: 10/18/18 21:57 Dose: 650 mg Acetylcysteine (Mucomyst 20 Oral / Inh Use Only*) 200 mg NEB RQID [facility] Last Admin: 10/22/18 08:44 Dose: 200 mg Albuterol Sulfate (Ventolin 0.083% Nebulizer Soln -) 1 amp NEB RQID [facility] Last Admin: 10/22/18 08:42 Dose: 1 amp Amlodipine Besylate (Norvasc -) 10 mg PO DAILY [facility] Last Admin: 10/22/18 09:17 Dose: 10 mg Escitalopram Oxalate (Lexapro -) 10 mg PO DAILY [facility] Last Admin: 10/22/18 09:18 Dose: 10 mg Guaifenesin (Robitussin -) 10 ml PO Q6H PRN PRN Reason: COUGH Last Admin: 10/13/18 13:15 Dose: 10 ml Hydralazine HCl (Apresoline -) 50 mg PO BID [facility] Last Admin: 10/22/18 09:18 Dose: 50 mg Piperacillin Sod/Tazobactam (Sod 2.25 gm/ Dextrose) 50 mls @ 100 mls/hr IVPB Q8H-IV [facility]; Protocol Last Admin: 10/22/18 09:19 Dose: 100 mls/hr Insulin Aspart (Novolog Vial Sliding Scale -) 1 vial SQ TIDAC [facility]; Protocol Last Admin: 10/22/18 12:26 Dose: 4 units Metoprolol Succinate (Toprol Xl -) 50 mg PO DAILY [facility] Last Admin: 10/22/18 09:17 Dose: 50 mg Pantoprazole Sodium (Protonix -) 40 mg PO DAILY [facility] Last Admin: 10/22/18 09:18 Dose: 40 mg Prednisone (Deltasone -) 30 mg PO DAILY [facility] Last Admin: 10/22/18 09:16 Dose: 30 mg Rosuvastatin Calcium (Crestor -) 10 mg PO HS [facility] Last Admin: 10/21/18 22:21 Dose: 10 mg Sevelamer Carbonate (Renvela -) 800 mg PO TIDCM [facility] Last Admin: 10/22/18 12:25 Dose: 800 mg - Objective Vital Signs: Vital Signs Temperature 97.8 F 10/22/18 06:00 Pulse Rate 81 10/22/18 06:00 Respiratory Rate 20 10/22/18 09:00 Blood Pressure 156/77 10/22/18 06:00 O2 Sat by Pulse Oximetry (%) 97 10/22/18 09:00 Constitutional: Yes: No Distress Cardiovascular: Yes: Regular Rate and Rhythm Respiratory: Yes: Other (improved air movement b/l No wheezing) Gastrointestinal: Yes: Soft Edema: No Neurological: Yes: Alert, Oriented ...Motor Strength: WNL Labs: CBC, BMP 10/22/18 05:50 10/22/18 05:50 INR, PTT INR 0.95 (0.83-1.09) 10/22/18 09:48 Laboratory Tests 10/22/18 10/22/18 05:50 05:50 WBC 15.1 H Hgb 10.2 L Plt Count 329 Sodium 130 L BUN 53.1 H Creatinine 2.5 H Calcium 9.5 Phosphorus 4.2 Magnesium 2.6 H Total Bilirubin 0.4 AST 15 - ....Imaging EKG: Image Reviewed Assessment/Plan Assessment/Plan Echo: LVSF appears mldly reduced, 40-45%. nl RV. mild MR. Acute on chronic systolic CHF, pleural effusion, ? PNA/parapneumonic effusion: -after diuresis BUN/Creat worsening, hyponatremia worsening. Thus lasix stopped as it seemed more likely her pulm findings are pna related, cont holding lasix -cont bb. marjan held for jack -thoracentesis done, CXR improved but with small left apical PTX -Cont supp O2, close clinical monitoring -F/u CXR in AM Suspected underlying CAD: -no signs acs -pt/family have declined cath due to MIKE risks (see prior dr welsh notes) -Resume Plavix when feasible. JACK on CKD: -baseline creat 1.5-2.0 -renal fxn worsened here, likely due to diuresis -Renal following HTN: -was running elevated, increased hydralazine to 50 mg BID -cont bb, ccb. -reasonably controlled now NSVT: -cont bb -sinus tachycardia noted on tele - likely in setting of PNA Altered MS: -head ct w/o acute changes -Likely due to Ativan, improved.
[2018-10-22 14:00] LABS: BF WBC & OTHER NUCLEATED CELLS 145 /mm3
[2018-10-22 16:11] LABS: BODY FLUID MESOTHELIAL 98 %
--- NOTE | 2018-10-22 17:30 | PN ---
Progress Note (short form) - Note Progress Note: Renal follow up for JACK/Fluid overload Pt seen and examined at the bedside s/p thoracentesis today CXR showed signifincat improvement in effusion pt still confused but comfortable breathing family at the bedside Vital Signs Temperature 97.5 F L 10/22/18 14:00 Pulse Rate 74 10/22/18 14:00 Respiratory Rate 20 10/22/18 14:00 Blood Pressure 128/59 L 10/22/18 14:00 O2 Sat by Pulse Oximetry (%) 97 10/22/18 09:00 Intake & Output 10/19/18 10/20/18 10/21/18 10/22/18 23:59 23:59 23:59 23:59 Intake Total 800 590 120 Balance 800 590 120 NAD on NC O2 RRR improved breath sounds soft NT/ND no LE or sacral edema CBC, BMP 10/22/18 05:50 10/22/18 05:50 Current Medications Acetaminophen (Tylenol -) 650 mg PO Q6H PRN PRN Reason: FEVER Last Admin: 10/18/18 21:57 Dose: 650 mg Acetylcysteine (Mucomyst 20 Oral / Inh Use Only*) 200 mg NEB RQID [facility] Last Admin: 10/22/18 16:30 Dose: 200 mg Albuterol Sulfate (Ventolin 0.083% Nebulizer Soln -) 1 amp NEB RQID [facility] Last Admin: 10/22/18 16:30 Dose: 1 amp Amlodipine Besylate (Norvasc -) 10 mg PO DAILY [facility] Last Admin: 10/22/18 09:17 Dose: 10 mg Escitalopram Oxalate (Lexapro -) 10 mg PO DAILY [facility] Last Admin: 10/22/18 09:18 Dose: 10 mg Guaifenesin (Robitussin -) 10 ml PO Q6H PRN PRN Reason: COUGH Last Admin: 10/13/18 13:15 Dose: 10 ml Hydralazine HCl (Apresoline -) 50 mg PO BID [facility] Last Admin: 10/22/18 09:18 Dose: 50 mg Piperacillin Sod/Tazobactam (Sod 2.25 gm/ Dextrose) 50 mls @ 100 mls/hr IVPB Q8H-IV [facility]; Protocol Last Admin: 10/22/18 17:11 Dose: 100 mls/hr Insulin Aspart (Novolog Vial Sliding Scale -) 1 vial SQ TIDAC [facility]; Protocol Last Admin: 10/22/18 17:11 Dose: Not Given Metoprolol Succinate (Toprol Xl -) 50 mg PO DAILY [facility] Last Admin: 10/22/18 09:17 Dose: 50 mg Pantoprazole Sodium (Protonix -) 40 mg PO DAILY [facility] Last Admin: 10/22/18 09:18 Dose: 40 mg Prednisone (Deltasone -) 30 mg PO DAILY [facility] Last Admin: 10/22/18 09:16 Dose: 30 mg Rosuvastatin Calcium (Crestor -) 10 mg PO HS [facility] Last Admin: 10/21/18 22:21 Dose: 10 mg Sevelamer Carbonate (Renvela -) 800 mg PO TIDCM [facility] Last Admin: 10/22/18 17:10 Dose: 800 mg 88 year old woman with hx of CKD stage 3 (baseline Cr 1.4-1.6), CHF, HTN, HLD, DM, CAD who presented with sob and admitted for CHF exacerbation witih JACK on CKD. #JACK on CKD #Hyponatremia #CHF exacerbation vs. acute PNA #Hypertension #CAD #DM #Anemia Renal function essentially stable Serum na stable s/p thoracentesis Serial CXR to monitor for reacumlation of effusion if any change in respiratory status can give IV Lasix as needed suspect that pt develops intravascular volume depletion (low albumin) in setting of diuretic use and thats why the BUN/Cr rise with diuretics maintain on fluid restriction of 1L daily Trend renal function and electrolytes daily Thank you Javon Cota DO
--- NOTE | 2018-10-22 21:47 | PN ---
Progress Note, Physician History of Present Illness: Pt agitated and restless S/P thoracentesis - Current Medication List Current Medications: Active Medications Acetaminophen (Tylenol -) 650 mg PO Q6H PRN PRN Reason: FEVER Last Admin: 10/18/18 21:57 Dose: 650 mg Acetylcysteine (Mucomyst 20 Oral / Inh Use Only*) 200 mg NEB RQID [facility] Last Admin: 10/22/18 20:31 Dose: 200 mg Albuterol Sulfate (Ventolin 0.083% Nebulizer Soln -) 1 amp NEB RQID [facility] Last Admin: 10/22/18 20:31 Dose: 1 amp Amlodipine Besylate (Norvasc -) 10 mg PO DAILY [facility] Last Admin: 10/22/18 09:17 Dose: 10 mg Escitalopram Oxalate (Lexapro -) 10 mg PO DAILY [facility] Last Admin: 10/22/18 09:18 Dose: 10 mg Guaifenesin (Robitussin -) 10 ml PO Q6H PRN PRN Reason: COUGH Last Admin: 10/13/18 13:15 Dose: 10 ml Hydralazine HCl (Apresoline -) 50 mg PO BID [facility] Last Admin: 10/22/18 09:18 Dose: 50 mg Piperacillin Sod/Tazobactam (Sod 2.25 gm/ Dextrose) 50 mls @ 100 mls/hr IVPB Q8H-IV [facility]; Protocol Last Admin: 10/22/18 17:11 Dose: 100 mls/hr Insulin Aspart (Novolog Vial Sliding Scale -) 1 vial SQ TIDAC [facility]; Protocol Last Admin: 10/22/18 17:11 Dose: Not Given Metoprolol Succinate (Toprol Xl -) 50 mg PO DAILY [facility] Last Admin: 10/22/18 09:17 Dose: 50 mg Pantoprazole Sodium (Protonix -) 40 mg PO DAILY [facility] Last Admin: 10/22/18 09:18 Dose: 40 mg Prednisone (Deltasone -) 30 mg PO DAILY [facility] Last Admin: 10/22/18 09:16 Dose: 30 mg Rosuvastatin Calcium (Crestor -) 10 mg PO HS [facility] Last Admin: 10/21/18 22:21 Dose: 10 mg Sevelamer Carbonate (Renvela -) 800 mg PO TIDCM [facility] Last Admin: 10/22/18 17:10 Dose: 800 mg - Objective Vital Signs: Vital Signs Temperature 98.1 F 10/22/18 18:00 Pulse Rate 78 10/22/18 18:00 Respiratory Rate 18 10/22/18 18:00 Blood Pressure 120/61 10/22/18 18:00 O2 Sat by Pulse Oximetry (%) 97 10/22/18 09:00 Constitutional: Yes: Well Nourished Neck: Yes: WNL, Supple Cardiovascular: Yes: WNL, Regular Rate and Rhythm Respiratory: Yes: Rhonchi Gastrointestinal: Yes: WNL, Normal Bowel Sounds, Soft, Abdomen, Obese Edema: No Labs: CBC, BMP 10/22/18 05:50 10/22/18 05:50 INR, PTT INR 0.95 (0.83-1.09) 10/22/18 09:48 Problem List - Problems (1) Pneumonia Assessment/Plan: S/P thoracentesis Follow cytology/cultures Initial CXR showed small apical pneumothorax however repeat CXR showed improvement Check CXR in am Cont IV zosyn and po prednisone Cont nebulizers Cont BIPAP CT scan chest showed b/p pleural effsuions Code(s): J18.9 - PNEUMONIA, UNSPECIFIED ORGANISM (2) Acute on chronic systolic (congestive) heart failure Assessment/Plan: Lasix on hold due to increasing creatinine and decreasing sodium As per cardio Code(s): I50.23 - ACUTE ON CHRONIC SYSTOLIC (CONGESTIVE) HEART FAILURE (3) CKD (chronic kidney disease) Assessment/Plan: Creatinine increasing again Code(s): N18.9 - CHRONIC KIDNEY DISEASE, UNSPECIFIED (4) HTN (hypertension) Assessment/Plan: BP stable Cont metoprolol/lisinopril Code(s): I10 - ESSENTIAL (PRIMARY) HYPERTENSION (5) HLD (hyperlipidemia) Assessment/Plan: Cont crestor Code(s): E78.5 - HYPERLIPIDEMIA, UNSPECIFIED (6) Osteoarthritis Code(s): M19.90 - UNSPECIFIED OSTEOARTHRITIS, UNSPECIFIED SITE Qualifiers: Osteoarthritis location: knee Osteoarthritis type: unspecified Laterality : right Qualified Code(s): M17.11 - Unilateral primary osteoarthritis, right knee (7) CAD (coronary artery disease) Assessment/Plan: Cont plavix Code(s): I25.10 - ATHSCL HEART DISEASE OF [place] CORONARY ARTERY W/O ANG PCTRS
[2018-10-22] MEDS: ROSUVASTATIN CA 10 MG TABLET (FP) PO SCH (22:14)
[2018-10-23] MEDS ORDERED: PIPERACILLIN/TAZOBACTAM 2.25 GM VIAL IVPB ONE ×3 (01:37→17:03)
[2018-10-23] MEDS ORDERED: DEXTROSE 5%-WATER - 50 ML IVPB ONE ×3 (01:37→17:03)
[2018-10-23] MEDS: PIPERACILLIN/TAZOB 2.25 GM 2.25 GM in DEXTROSE 5%-WATER - 50 ML IVPB SCH ×3 (02:25→17:05)
[2018-10-23] MEDS: INSULIN SLIDING SCALE (NOVOLOG) 1 VIAL SQ SCH ×3 (06:02→16:50)
[2018-10-23 06:11] LABS: BASO % 0.2 % (0-2.0); EOS % 0.2 % (0-4.5); HEMATOCRIT 34.2 % (32.4-45.2); HEMOGLOBIN 11.1 GM/dL (10.7-15.3); LYMPH % 3.7 % (8-40); MCH 27.3 pg (25.7-33.7); MCHC 32.5 g/dl (32.0-36.0); MEAN PLT VOLUME 7.8 fl (7.5-11.1); MONO % 6.6 % (3.8-10.2); NEUT % 89.3 % (42.8-82.8); PLATELET COUNT 322 K/MM3 (134-434); RBC 4.07 M/mm3 (3.60-5.2); RDW 14.5 % (11.6-15.6); WHITE BLOOD COUNT 19.7 K/mm3 (4.0-10.0)
[2018-10-23 06:45] LABS: ALBUMIN 2.7 g/dl (3.4-5.0); BILIRUBIN,TOTAL 0.6 mg/dL (0.2-1); BLOOD UREA NITROGEN 55.5 mg/dL (7-18); CALCIUM 10.1 mg/dL (8.5-10.1); CREATININE 2.5 mg/dL (0.55-1.3); MAGNESIUM 2.6 mg/dL (1.8-2.4); PHOSPHOROUS 3.7 mg/dL (2.5-4.9); POTASSIUM 4.9 mmol/L (3.5-5.1); TOT PROT 6.8 g/dl (6.4-8.2)
[2018-10-23] MEDS: ACETYLCYSTEINE 20% 200MG/ML 4 ML VIAL *FOR ORAL / INH USE ONLY NEB SCH ×4 (07:45→20:10)
[2018-10-23] MEDS: ALBUTEROL SO4 0.083% IH SOL 2.5 MG/3 ML VIAL.NEB. NEB SCH ×4 (07:45→20:10)
[2018-10-23] MEDS: SEVELAMER CARBONATE 800 MG TAB (FP) PO SCH ×3 (08:20→17:05)
[2018-10-23 10:09] LABS: BODY FLUID ALBUMIN 0.8 g/dL (.)
[2018-10-23] MEDS: hydrALAZINE HCL 25 MG TABLET (FP) PO SCH ×2 (10:20→21:50)
[2018-10-23] MEDS: predniSONE 20 MG TABLET (UD) PO SCH (10:20)
[2018-10-23] MEDS: PANTOPRAZOLE 40 MG TABLET (FP) PO SCH (10:22)
[2018-10-23] MEDS: metoPROLOL SUCCINATE 25 MG TAB.SR.24H (FP) PO SCH (10:22)
[2018-10-23] MEDS: ESCITALOPRAM OXALATE 10 MG TABLET (FP) PO SCH (10:22)
[2018-10-23] MEDS: amLODIPine BESYLATE 10 MG TABLET (FP) PO SCH (10:22)
--- NOTE | 2018-10-23 10:40 | PN ---
Progress Note (short form) - Note Progress Note: s: no chest pain, edema, dizziness, lightheadedness Current Medications Generic Name Dose Route Start Last Admin Trade Name Freq PRN Reason Stop Dose Admin Acetaminophen 650 mg 10/18/18 21:54 10/18/18 21:57 Tylenol - PO 650 mg Q6H PRN Administration FEVER Acetylcysteine 200 mg 10/15/18 17:00 10/23/18 07:45 Mucomyst 20 Oral / Inh Use Only* NEB 200 mg RQID [facility] Administration Albuterol Sulfate 1 amp 10/15/18 16:00 10/23/18 07:45 Ventolin 0.083% Nebulizer Soln - NEB 1 amp RQID [facility] Administration Amlodipine Besylate 10 mg 10/14/18 10:00 10/23/18 10:22 Norvasc - PO 10 mg DAILY [facility] Administration Escitalopram Oxalate 10 mg 10/02/18 17:00 10/23/18 10:22 Lexapro - PO 10 mg DAILY [facility] Administration Guaifenesin 10 ml 10/08/18 11:16 10/13/18 13:15 Robitussin - PO 10 ml Q6H PRN Administration COUGH Hydralazine HCl 50 mg 10/18/18 10:53 10/23/18 10:20 Apresoline - PO 50 mg BID [facility] Administration Piperacillin Sod/Tazobactam 50 mls @ 100 mls/hr 10/20/18 18:00 10/23/18 10:19 Sod 2.25 gm/ Dextrose IVPB 100 mls/hr Q8H-IV [facility] Administration Protocol Insulin Aspart 1 vial 10/04/18 17:15 10/23/18 06:02 Novolog Vial Sliding Scale - SQ Not Given TIDAC [facility] Protocol Metoprolol Succinate 50 mg 10/09/18 09:21 10/23/18 10:22 Toprol Xl - PO 50 mg DAILY [facility] Administration Pantoprazole Sodium 40 mg 10/04/18 17:00 10/23/18 10:22 Protonix - PO 40 mg DAILY [facility] Administration Prednisone 30 mg 10/20/18 12:07 10/23/18 10:20 Deltasone - PO 30 mg DAILY [facility] Administration Rosuvastatin Calcium 10 mg 10/02/18 22:00 10/22/18 22:14 Crestor - PO 10 mg HS [facility] Administration Sevelamer Carbonate 800 mg 10/11/18 12:00 10/23/18 08:20 Renvela - PO 800 mg TIDCM [facility] Administration Vital Signs Period Temp Pulse Resp BP Sys/Vasquez Pulse Ox Last 24 Hr 97.5 F-98.3 F 74-92 18-20 120-158/57-84 93-93 Constitutional: Yes: No Distress, Calm Eyes: No: Sclera Icterus HENT: No: Nasal Congestion Cardiovascular: Yes: Regular Rate and Rhythm, JVD, S1, S2, Other (PMI non diplaced). No: Gallop, Murmur Respiratory: Yes: scattered rhonchi No: Accessory Muscle Use Gastrointestinal: Yes: Normal Bowel Sounds, Soft. No: Tenderness Extremities: No: Cold, Cyanosis Edema: No Integumentary: No: Jaundice Neurological: Yes: Alert, Oriented (x3) Psychiatric: No: Agitated CBC, BMP 10/23/18 05:20 10/23/18 05:20 echo: LVSF appears mldly reduced, 40-45%. nl RV. mild MR. Assessment/Plan Acute on chronic systolic CHF, pleural effusion, ? PNA/parapneumonic effusion: -after diuresis BUN/Creat worsening, hyponatremia worsening. Thus lasix stopped as it seemed more likely her pulm findings are pna related, cont holding lasix -cont bb. marjan held for jack -thoracentesis done, CXR improved -Cont supp O2, close clinical monitoring Suspected underlying CAD: -no signs acs -pt/family have declined cath due to MIKE risks (see prior dr welsh notes) -Resume Plavix when feasible. JACK on CKD: -baseline creat 1.5-2.0 -renal fxn worsened here, likely due to diuresis -Renal following HTN: -was running elevated, increased hydralazine to 50 mg BID -cont bb, ccb. -reasonably controlled now NSVT: -cont bb -sinus tachycardia noted on tele - likely in setting of PNA Altered MS: -head ct w/o acute changes -Likely due to Ativan, improved.
--- NOTE | 2018-10-23 11:23 | PATH ---
Cytology Non-Gynecological Report Patient Name: CIELO BENITEZ [facility]. Rec. #: [id number] /Age/Gender: 1930 (Age: 88) / F Account: [id number] Location: [address] [place] [address]/ADOL Taken: 10/22/2018 Received: 10/22/2018 Reported: 10/23/2018 Physicians: Dolly Whitaker M.D. Specimen(s) Received A: LEFT PLEURAL FLUID B: LEFT PLEURAL FLUID Clinical History Pleural effusion, Congestive heart failure, pneumonia Final Diagnosis A-B. PLEURAL FLUID, LEFT, THORACENTESIS: SATISFACTORY FOR EVALUATION NO MALIGNANT CELLS IDENTIFIED. RARE MESOTHELIAL CELLS, FEW MACROPHAGES, AND RARE LYMPHOCYTES PRESENT. Electronically Signed Malena Dooley M.D. Gross Description A. Approximately 50 cc of yellow fluid received fixed in 50% alcohol. One cytofunnel prepared and Pap stained. One cellblock prepared. B. Approximately 1000 cc of yellow fluid received fresh. One cytofunnel prepared and Pap stained. One cellblock prepared.
--- NOTE | 2018-10-23 12:05 | PN ---
Progress Note (short form) - Note Progress Note: PULMONARY s/p left thoracentesis. Pleural fluid studies pending. Daughter states breathing better. Vital Signs Period Temp Pulse Resp BP Sys/Vasquez Pulse Ox Last 24 Hr 97.5 F-98.3 F 74-92 18-20 120-158/57-84 91-93 Gen: less tachypneic at rest Heart: RRR Lung: scattered rhonchi Abd: soft, nontender Ext: no edema CBC, BMP 10/23/18 05:20 10/23/18 05:20 Active Medications Acetaminophen (Tylenol -) 650 mg PO Q6H PRN PRN Reason: FEVER Last Admin: 10/18/18 21:57 Dose: 650 mg Acetylcysteine (Mucomyst 20 Oral / Inh Use Only*) 200 mg NEB RQID [facility] Last Admin: 10/23/18 12:03 Dose: 200 mg Albuterol Sulfate (Ventolin 0.083% Nebulizer Soln -) 1 amp NEB RQID [facility] Last Admin: 10/23/18 12:04 Dose: 1 amp Amlodipine Besylate (Norvasc -) 10 mg PO DAILY [facility] Last Admin: 10/23/18 10:22 Dose: 10 mg Escitalopram Oxalate (Lexapro -) 10 mg PO DAILY [facility] Last Admin: 10/23/18 10:22 Dose: 10 mg Guaifenesin (Robitussin -) 10 ml PO Q6H PRN PRN Reason: COUGH Last Admin: 10/13/18 13:15 Dose: 10 ml Hydralazine HCl (Apresoline -) 50 mg PO BID [facility] Last Admin: 10/23/18 10:20 Dose: 50 mg Piperacillin Sod/Tazobactam (Sod 2.25 gm/ Dextrose) 50 mls @ 100 mls/hr IVPB Q8H-IV [facility]; Protocol Last Admin: 10/23/18 10:19 Dose: 100 mls/hr Insulin Aspart (Novolog Vial Sliding Scale -) 1 vial SQ TIDAC [facility]; Protocol Last Admin: 10/23/18 11:43 Dose: 6 units Metoprolol Succinate (Toprol Xl -) 50 mg PO DAILY [facility] Last Admin: 10/23/18 10:22 Dose: 50 mg Pantoprazole Sodium (Protonix -) 40 mg PO DAILY [facility] Last Admin: 06/20/19 10:22 Dose: 40 mg Prednisone (Deltasone -) 30 mg PO DAILY [facility] Last Admin: 10/23/18 10:20 Dose: 30 mg Rosuvastatin Calcium (Crestor -) 10 mg PO HS [facility] Last Admin: 10/22/18 22:14 Dose: 10 mg Sevelamer Carbonate (Renvela -) 800 mg PO TIDCM [facility] Last Admin: 10/23/18 08:20 Dose: 800 mg A/P Acute on Chronic Systolic Heart Failure Pneumonia Pleural Effusions Acute on Chronic Renal Failure HTN DM Hyperlipidemia h/o CVA - f/u pleural fluid studies - continue antibiotics - prednisone taper - inhaled bronchodilators - BiPAP as needed - O2 to keep spO2 >90% - DVT prophylaxis
--- NOTE | 2018-10-23 15:33 | PN ---
Progress Note (short form) - Note Progress Note: Renal follow up for JACK/Fluid overload Pt seen and examined at the bedside family reports she is doing better ate her breakfast and lunch no worsening SOB Vital Signs Temperature 98.3 F 10/23/18 14:25 Pulse Rate 85 10/23/18 14:25 Respiratory Rate 18 10/23/18 14:25 Blood Pressure 126/68 10/23/18 14:25 O2 Sat by Pulse Oximetry (%) 91 L 10/23/18 12:02 Intake & Output 10/20/18 10/21/18 10/22/18 10/23/18 23:59 23:59 23:59 23:59 Intake Total 590 120 230 70 Balance 590 120 230 70 NAD on NC O2 RRR improved breath sounds soft NT/ND no LE or sacral edema CBC, BMP 10/23/18 05:20 10/23/18 05:20 Current Medications Acetaminophen (Tylenol -) 650 mg PO Q6H PRN PRN Reason: FEVER Last Admin: 10/18/18 21:57 Dose: 650 mg Acetylcysteine (Mucomyst 20 Oral / Inh Use Only*) 200 mg NEB RQID [facility] Last Admin: 10/23/18 12:03 Dose: 200 mg Albuterol Sulfate (Ventolin 0.083% Nebulizer Soln -) 1 amp NEB RQID [facility] Last Admin: 10/23/18 12:04 Dose: 1 amp Amlodipine Besylate (Norvasc -) 10 mg PO DAILY [facility] Last Admin: 10/23/18 10:22 Dose: 10 mg Escitalopram Oxalate (Lexapro -) 10 mg PO DAILY [facility] Last Admin: 10/23/18 10:22 Dose: 10 mg Guaifenesin (Robitussin -) 10 ml PO Q6H PRN PRN Reason: COUGH Last Admin: 10/13/18 13:15 Dose: 10 ml Hydralazine HCl (Apresoline -) 50 mg PO BID [facility] Last Admin: 10/23/18 10:20 Dose: 50 mg Piperacillin Sod/Tazobactam (Sod 2.25 gm/ Dextrose) 50 mls @ 100 mls/hr IVPB Q8H-IV [facility]; Protocol Last Admin: 10/23/18 10:19 Dose: 100 mls/hr Insulin Aspart (Novolog Vial Sliding Scale -) 1 vial SQ TIDAC [facility]; Protocol Last Admin: 10/23/18 11:43 Dose: 6 units Metoprolol Succinate (Toprol Xl -) 50 mg PO DAILY [facility] Last Admin: 10/23/18 10:22 Dose: 50 mg Pantoprazole Sodium (Protonix -) 40 mg PO DAILY [facility] Last Admin: 10/23/18 10:22 Dose: 40 mg Prednisone (Deltasone -) 20 mg PO DAILY [facility] Rosuvastatin Calcium (Crestor -) 10 mg PO HS [facility] Last Admin: 10/22/18 22:14 Dose: 10 mg Sevelamer Carbonate (Renvela -) 800 mg PO TIDCM [facility] Last Admin: 10/23/18 12:05 Dose: 800 mg 88 year old woman with hx of CKD stage 3 (baseline Cr 1.4-1.6), CHF, HTN, HLD, DM, CAD who presented with sob and admitted for CHF exacerbation witih JACK on CKD. #JACK on CKD #Hyponatremia #CHF exacerbation vs. acute PNA #Hypertension #CAD #DM #Anemia Renal function essentially stable Serum na stable s/p thoracentesis with improvement in clinical statsu maintain on fluid restriction of 1L daily Trend renal function and electrolytes daily Thank you Javon Cota DO
--- NOTE | 2018-10-23 20:05 | PN ---
Progress Note, Physician - Current Medication List Current Medications: Active Medications Acetaminophen (Tylenol -) 650 mg PO Q6H PRN PRN Reason: FEVER Last Admin: 10/18/18 21:57 Dose: 650 mg Acetylcysteine (Mucomyst 20 Oral / Inh Use Only*) 200 mg NEB RQID [facility] Last Admin: 10/23/18 16:08 Dose: 200 mg Albuterol Sulfate (Ventolin 0.083% Nebulizer Soln -) 1 amp NEB RQID [facility] Last Admin: 10/23/18 16:08 Dose: 1 amp Amlodipine Besylate (Norvasc -) 10 mg PO DAILY [facility] Last Admin: 10/23/18 10:22 Dose: 10 mg Escitalopram Oxalate (Lexapro -) 10 mg PO DAILY [facility] Last Admin: 10/23/18 10:22 Dose: 10 mg Guaifenesin (Robitussin -) 10 ml PO Q6H PRN PRN Reason: COUGH Last Admin: 10/13/18 13:15 Dose: 10 ml Hydralazine HCl (Apresoline -) 50 mg PO BID [facility] Last Admin: 10/23/18 10:20 Dose: 50 mg Piperacillin Sod/Tazobactam (Sod 2.25 gm/ Dextrose) 50 mls @ 100 mls/hr IVPB Q8H-IV [facility]; Protocol Last Admin: 10/23/18 17:05 Dose: 100 mls/hr Insulin Aspart (Novolog Vial Sliding Scale -) 1 vial SQ TIDAC [facility]; Protocol Last Admin: 10/23/18 16:50 Dose: 4 units Metoprolol Succinate (Toprol Xl -) 50 mg PO DAILY [facility] Last Admin: 10/23/18 10:22 Dose: 50 mg Pantoprazole Sodium (Protonix -) 40 mg PO DAILY [facility] Last Admin: 10/23/18 10:22 Dose: 40 mg Prednisone (Deltasone -) 20 mg PO DAILY [facility] Rosuvastatin Calcium (Crestor -) 10 mg PO HS [facility] Last Admin: 10/22/18 22:14 Dose: 10 mg Sevelamer Carbonate (Renvela -) 800 mg PO TIDCM [facility] Last Admin: 10/23/18 17:05 Dose: 800 mg - Objective Vital Signs: Vital Signs Temperature 98.3 F 10/23/18 14:25 Pulse Rate 85 10/23/18 14:25 Respiratory Rate 18 10/23/18 14:25 Blood Pressure 126/68 10/23/18 14:25 O2 Sat by Pulse Oximetry (%) 91 L 10/23/18 12:02 Cardiovascular: Yes: WNL, Regular Rate and Rhythm Respiratory: Yes: WNL, Regular, CTA Bilaterally Gastrointestinal: Yes: WNL, Normal Bowel Sounds, Soft Labs: CBC, BMP 10/23/18 05:20 10/23/18 05:20 INR, PTT INR 0.95 (0.83-1.09) 10/22/18 09:48 Problem List - Problems (1) Pneumonia Code(s): J18.9 - PNEUMONIA, UNSPECIFIED ORGANISM (2) Acute on chronic systolic (congestive) heart failure Code(s): I50.23 - ACUTE ON CHRONIC SYSTOLIC (CONGESTIVE) HEART FAILURE (3) CKD (chronic kidney disease) Code(s): N18.9 - CHRONIC KIDNEY DISEASE, UNSPECIFIED (4) HTN (hypertension) Code(s): I10 - ESSENTIAL (PRIMARY) HYPERTENSION (5) HLD (hyperlipidemia) Code(s): E78.5 - HYPERLIPIDEMIA, UNSPECIFIED (6) Osteoarthritis Code(s): M19.90 - UNSPECIFIED OSTEOARTHRITIS, UNSPECIFIED SITE Qualifiers: Osteoarthritis location: knee Osteoarthritis type: unspecified Laterality : right Qualified Code(s): M17.11 - Unilateral primary osteoarthritis, right knee (7) CAD (coronary artery disease) Code(s): I25.10 - ATHSCL HEART DISEASE OF [place] CORONARY ARTERY W/O ANG PCTRS
[2018-10-23] MEDS: ROSUVASTATIN CA 10 MG TABLET (FP) PO SCH (21:50)
[2018-10-24] MEDS ORDERED: PIPERACILLIN/TAZOBACTAM 2.25 GM VIAL IVPB ONE ×3 (01:05→17:19)
[2018-10-24] MEDS ORDERED: DEXTROSE 5%-WATER - 50 ML IVPB ONE ×3 (01:05→17:19)
[2018-10-24] MEDS: PIPERACILLIN/TAZOB 2.25 GM 2.25 GM in DEXTROSE 5%-WATER - 50 ML IVPB SCH ×3 (01:41→17:23)
[2018-10-24 06:14] LABS: BASO % 0.2 % (0-2.0); EOS % 0.1 % (0-4.5); HEMOGLOBIN 10.1 GM/dL (10.7-15.3); LYMPH % 3.2 % (8-40); MCH 27.6 pg (25.7-33.7); MCHC 32.6 g/dl (32.0-36.0); MEAN CELL VOLUME 84.8 fl (80-96); MEAN PLT VOLUME 7.8 fl (7.5-11.1); MONO % 6.7 % (3.8-10.2); NEUT % 89.8 % (42.8-82.8); PLATELET COUNT 234 K/MM3 (134-434); RBC 3.66 M/mm3 (3.60-5.2); RDW 14.4 % (11.6-15.6); WHITE BLOOD COUNT 18.9 K/mm3 (4.0-10.0)
[2018-10-24] MEDS: INSULIN SLIDING SCALE (NOVOLOG) 1 VIAL SQ SCH ×3 (06:36→17:22)
[2018-10-24 06:48] LABS: BLOOD UREA NITROGEN 60.1 mg/dL (7-18); CREATININE 2.6 mg/dL (0.55-1.3); MAGNESIUM 2.6 mg/dL (1.8-2.4); PHOSPHOROUS 3.5 mg/dL (2.5-4.9); POTASSIUM 4.5 mmol/L (3.5-5.1)
[2018-10-24] MEDS: ALBUTEROL SO4 0.083% IH SOL 2.5 MG/3 ML VIAL.NEB. NEB SCH ×4 (07:15→20:25)
[2018-10-24] MEDS: ACETYLCYSTEINE 20% 200MG/ML 4 ML VIAL *FOR ORAL / INH USE ONLY NEB SCH ×4 (07:15→20:25)
--- NOTE | 2018-10-24 09:08 | PN ---
Progress Note, Physician Chief Complaint: seen, examined, daughter at bedside She is sitting in chair Suspect some sundowning effect Repeat CXR yest- no PTX - Current Medication List Current Medications: Active Medications Acetaminophen (Tylenol -) 650 mg PO Q6H PRN PRN Reason: FEVER Last Admin: 10/18/18 21:57 Dose: 650 mg Acetylcysteine (Mucomyst 20 Oral / Inh Use Only*) 200 mg NEB RQID [facility] Last Admin: 10/23/18 20:10 Dose: 200 mg Albuterol Sulfate (Ventolin 0.083% Nebulizer Soln -) 1 amp NEB RQID [facility] Last Admin: 10/23/18 20:10 Dose: 1 amp Amlodipine Besylate (Norvasc -) 10 mg PO DAILY [facility] Last Admin: 10/23/18 10:22 Dose: 10 mg Escitalopram Oxalate (Lexapro -) 10 mg PO DAILY [facility] Last Admin: 10/23/18 10:22 Dose: 10 mg Guaifenesin (Robitussin -) 10 ml PO Q6H PRN PRN Reason: COUGH Last Admin: 10/13/18 13:15 Dose: 10 ml Hydralazine HCl (Apresoline -) 50 mg PO BID [facility] Last Admin: 10/23/18 21:50 Dose: 50 mg Piperacillin Sod/Tazobactam (Sod 2.25 gm/ Dextrose) 50 mls @ 100 mls/hr IVPB Q8H-IV [facility]; Protocol Last Admin: 10/24/18 01:41 Dose: 100 mls/hr Insulin Aspart (Novolog Vial Sliding Scale -) 1 vial SQ TIDAC [facility]; Protocol Last Admin: 10/24/18 06:36 Dose: Not Given Metoprolol Succinate (Toprol Xl -) 50 mg PO DAILY [facility] Last Admin: 10/23/18 10:22 Dose: 50 mg Pantoprazole Sodium (Protonix -) 40 mg PO DAILY [facility] Last Admin: 10/23/18 10:22 Dose: 40 mg Prednisone (Deltasone -) 20 mg PO DAILY [facility] Rosuvastatin Calcium (Crestor -) 10 mg PO HS [facility] Last Admin: 10/23/18 21:50 Dose: 10 mg Sevelamer Carbonate (Renvela -) 800 mg PO TIDCM [facility] Last Admin: 10/23/18 17:05 Dose: 800 mg - Objective Vital Signs: Vital Signs Temperature 98.6 F 10/24/18 06:00 Pulse Rate 81 10/24/18 06:00 Respiratory Rate 18 10/24/18 06:00 Blood Pressure 142/72 10/24/18 06:00 O2 Sat by Pulse Oximetry (%) 94 L 10/23/18 21:00 Constitutional: Yes: Calm Cardiovascular: Yes: Regular Rate and Rhythm Respiratory: Yes: Rhonchi, Other (decreased breath sounds at bases) Gastrointestinal: Yes: Soft, Abdomen, Obese Edema: No Neurological: Yes: Alert, Oriented Labs: CBC, BMP 10/24/18 05:45 10/24/18 05:45 INR, PTT INR 0.95 (0.83-1.09) 10/22/18 09:48 Laboratory Tests 10/24/18 10/24/18 05:45 05:45 WBC 18.9 H Hgb 10.1 L Plt Count 234 D Sodium 130 L Potassium 4.5 Creatinine 2.6 H Magnesium 2.6 H - ....Imaging EKG: Pending, Image Reviewed, Other Assessment/Plan Assessment/Plan Acute on chronic systolic CHF, pleural effusion, ? PNA/parapneumonic effusion: -after diuresis BUN/Creat worsening, hyponatremia worsening. Thus lasix stopped as it seemed more likely her pulm findings are pna related, cont holding lasix -cont bb. marjan held for urth -thoracentesis done, CXR improved -Cont supp O2, close clinical monitoring Suspected underlying CAD: -no signs acs -pt/family have declined cath due to MIKE risks (see prior dr welsh notes) -Resume Plavix when feasible. RUTH on CKD: -baseline creat 1.5-2.0 -renal fxn worsened here -Renal following HTN: -was running elevated, increased hydralazine to 50 mg BID -cont bb, ccb. -reasonably controlled now NSVT: -cont bb -sinus tachycardia noted on tele - likely in setting of PNA Altered MS: -head ct w/o acute changes -Likely due to Ativan, improved.
[2018-10-24] MEDS ORDERED: PT OWN MED DRAWER 7, Y5N ONE (09:59)
[2018-10-24] MEDS: metoPROLOL SUCCINATE 25 MG TAB.SR.24H (FP) PO SCH (10:03)
[2018-10-24] MEDS: hydrALAZINE HCL 25 MG TABLET (FP) PO SCH ×2 (10:03→21:55)
[2018-10-24] MEDS: PANTOPRAZOLE 40 MG TABLET (FP) PO SCH (10:03)
[2018-10-24] MEDS: SEVELAMER CARBONATE 800 MG TAB (FP) PO SCH ×3 (10:03→17:23)
[2018-10-24] MEDS: predniSONE 20 MG TABLET (UD) PO SCH (10:03)
[2018-10-24] MEDS: amLODIPine BESYLATE 10 MG TABLET (FP) PO SCH (10:04)
[2018-10-24] MEDS: ESCITALOPRAM OXALATE 10 MG TABLET (FP) PO SCH (10:04)
--- NOTE | 2018-10-24 13:54 | PN ---
Progress Note (short form) - Note Progress Note: Renal follow up for JACK/Fluid overload Pt seen and examined at the bedside awake and alert was agitated overnight eating very little as per family no respiratory distress Vital Signs Temperature 98.3 F 10/24/18 10:00 Pulse Rate 92 H 10/24/18 10:00 Respiratory Rate 18 10/24/18 10:00 Blood Pressure 132/72 10/24/18 10:00 O2 Sat by Pulse Oximetry (%) 93 L 10/24/18 09:00 Intake & Output 10/21/18 10/22/18 10/23/18 10/24/18 23:59 23:59 23:59 23:59 Intake Total 120 230 170 Balance 120 230 170 NAD on NC O2 RRR improved breath sounds, scattered rales soft NT/ND no LE or sacral edema CBC, BMP 10/24/18 05:45 10/24/18 05:45 Current Medications Acetaminophen (Tylenol -) 650 mg PO Q6H PRN PRN Reason: FEVER Last Admin: 10/18/18 21:57 Dose: 650 mg Acetylcysteine (Mucomyst 20 Oral / Inh Use Only*) 200 mg NEB RQID [facility] Last Admin: 10/24/18 11:49 Dose: 200 mg Albuterol Sulfate (Ventolin 0.083% Nebulizer Soln -) 1 amp NEB RQID [facility] Last Admin: 10/24/18 11:48 Dose: 1 amp Amlodipine Besylate (Norvasc -) 10 mg PO DAILY [facility] Last Admin: 10/24/18 10:04 Dose: 10 mg Escitalopram Oxalate (Lexapro -) 10 mg PO DAILY [facility] Last Admin: 10/24/18 10:04 Dose: 10 mg Guaifenesin (Robitussin -) 10 ml PO Q6H PRN PRN Reason: COUGH Last Admin: 10/13/18 13:15 Dose: 10 ml Hydralazine HCl (Apresoline -) 50 mg PO BID [facility] Last Admin: 10/24/18 10:03 Dose: 50 mg Piperacillin Sod/Tazobactam (Sod 2.25 gm/ Dextrose) 50 mls @ 100 mls/hr IVPB Q8H-IV [facility]; Protocol Last Admin: 10/24/18 10:04 Dose: 100 mls/hr Insulin Aspart (Novolog Vial Sliding Scale -) 1 vial SQ TIDAC [facility]; Protocol Last Admin: 10/24/18 11:44 Dose: 4 units Metoprolol Succinate (Toprol Xl -) 50 mg PO DAILY [facility] Last Admin: 10/24/18 10:03 Dose: 50 mg Pantoprazole Sodium (Protonix -) 40 mg PO DAILY [facility] Last Admin: 10/24/18 10:03 Dose: 40 mg Prednisone (Deltasone -) 20 mg PO DAILY [facility] Last Admin: 10/24/18 10:03 Dose: 20 mg Rosuvastatin Calcium (Crestor -) 10 mg PO HS [facility] Last Admin: 10/23/18 21:50 Dose: 10 mg Sevelamer Carbonate (Renvela -) 800 mg PO TIDCM [facility] Last Admin: 10/24/18 11:46 Dose: 800 mg 88 year old woman with hx of CKD stage 3 (baseline Cr 1.4-1.6), CHF, HTN, HLD, DM, CAD who presented with sob and admitted for CHF exacerbation witih JACK on CKD. #JACK on CKD #Hyponatremia #CHF exacerbation vs. acute PNA #Hypertension #CAD #DM #Anemia Renal function stable Serum Na stable but low likely due to hypervolemia CXR shows resolution of large effusion but persistent congestive changes s/p thoracentesis maintain on fluid restriction of 1L daily can consider addition of low dose diuretic if pt is able to maintain good oral intake Trend renal function and electrolytes daily Thank you Javon Cota DO
--- NOTE | 2018-10-24 14:45 | PN ---
Progress Note (short form) - Note Progress Note: Awake and responsive. Breathing is non-labored. Appears clinically better. Insomnia and sun-downing have been issues. CXR: some improvement in Left effusion / minimal gross change in bilateral airspace opacities Intake & Output 10/21/18 10/22/18 10/23/18 10/24/18 23:59 23:59 23:59 23:59 Intake Total 120 230 170 Balance 120 230 170 Last Vital Signs Temp Pulse Resp BP Pulse Ox 98.3 F 92 H 18 132/72 93 L 10/24/18 10:00 10/24/18 10:00 10/24/18 10:00 10/24/18 10:00 10/24/18 09:00 Active Medications Acetaminophen (Tylenol -) 650 mg PO Q6H PRN PRN Reason: FEVER Last Admin: 10/18/18 21:57 Dose: 650 mg Acetylcysteine (Mucomyst 20 Oral / Inh Use Only*) 200 mg NEB RQID [facility] Last Admin: 10/24/18 11:49 Dose: 200 mg Albuterol Sulfate (Ventolin 0.083% Nebulizer Soln -) 1 amp NEB RQID [facility] Last Admin: 10/24/18 11:48 Dose: 1 amp Amlodipine Besylate (Norvasc -) 10 mg PO DAILY [facility] Last Admin: 10/24/18 10:04 Dose: 10 mg Escitalopram Oxalate (Lexapro -) 10 mg PO DAILY [facility] Last Admin: 10/24/18 10:04 Dose: 10 mg Guaifenesin (Robitussin -) 10 ml PO Q6H PRN PRN Reason: COUGH Last Admin: 10/13/18 13:15 Dose: 10 ml Hydralazine HCl (Apresoline -) 50 mg PO BID [facility] Last Admin: 10/24/18 10:03 Dose: 50 mg Piperacillin Sod/Tazobactam (Sod 2.25 gm/ Dextrose) 50 mls @ 100 mls/hr IVPB Q8H-IV [facility]; Protocol Last Admin: 10/24/18 10:04 Dose: 100 mls/hr Insulin Aspart (Novolog Vial Sliding Scale -) 1 vial SQ TIDAC [facility]; Protocol Last Admin: 10/24/18 11:44 Dose: 4 units Metoprolol Succinate (Toprol Xl -) 50 mg PO DAILY [facility] Last Admin: 10/24/18 10:03 Dose: 50 mg Pantoprazole Sodium (Protonix -) 40 mg PO DAILY [facility] Last Admin: 10/24/18 10:03 Dose: 40 mg Prednisone (Deltasone -) 20 mg PO DAILY [facility] Last Admin: 10/24/18 10:03 Dose: 20 mg Rosuvastatin Calcium (Crestor -) 10 mg PO HS [facility] Last Admin: 10/23/18 21:50 Dose: 10 mg Sevelamer Carbonate (Renvela -) 800 mg PO TIDCM [facility] Last Admin: 10/24/18 11:46 Dose: 800 mg Constitutional: Yes: NAD on NC O2 Eyes: Yes: WNL HENT: Yes: WNL Neck: Yes: WNL Cardiovascular: Yes: Regular Rate and Rhythm, S1, S2 Respiratory: Yes: Diminished at the bases, bilateral rhonchi Gastrointestinal: Yes: Normal Bowel Sounds, Soft Extremities: Yes: WNL Edema: No Labs: Laboratory Results - last 24 hr 10/22/18 10/23/18 10/24/18 11:00 16:49 05:45 WBC 18.9 H RBC 3.66 Hgb 10.1 L Hct 31.0 L MCV 84.8 MCH 27.6 MCHC 32.6 RDW 14.4 Plt Count 234 D MPV 7.8 Absolute Neuts (auto) 16.9 H Neutrophils % 89.8 H Lymphocytes % 3.2 L Monocytes % 6.7 Eosinophils % 0.1 Basophils % 0.2 Nucleated RBC % 0 Sodium Potassium Chloride Carbon Dioxide Anion Gap BUN Creatinine Est GFR (CKD-EPI)AfAm Est GFR (CKD-EPI)NonAf POC Glucometer 247 Random Glucose Calcium Phosphorus Magnesium POC Fluid pH 7.6 10/24/18 10/24/18 10/24/18 05:45 05:55 11:29 WBC RBC Hgb Hct MCV MCH MCHC RDW Plt Count MPV Absolute Neuts (auto) Neutrophils % Lymphocytes % Monocytes % Eosinophils % Basophils % Nucleated RBC % Sodium 130 L Potassium 4.5 Chloride 88 L Carbon Dioxide 37 H Anion Gap 5 L BUN 60.1 H Creatinine 2.6 H Est GFR (CKD-EPI)AfAm 18.61 Est GFR (CKD-EPI)NonAf 16.06 POC Glucometer 145 242 Random Glucose 150 H Calcium 10.0 Phosphorus 3.5 Magnesium 2.6 H POC Fluid pH Assessment/Plan IMP DYSPNEA ACUTE ON CHRONIC CHF ACUTE ON CHRONIC KIDNEY DISEASE ? ASHD HTN DM HLD H/O CVA PNEUMONIA HYPONATREMIA OPACIFICATION LEFT HEMITHORAX ATELECTASIS/EFFUSION PLAN LASIX PRN SUPPLEMENTAL O2 INHALED BRONCHODILATORS MONITOR LYTES,RENAL FUNCTION PREDNISONE ABX PER ID CHEST PT FOLLOW FINAL PLEURAL STUDIES DR RYAN
--- NOTE | 2018-10-24 21:30 | PN ---
Progress Note, Physician - Current Medication List Current Medications: Active Medications Acetaminophen (Tylenol -) 650 mg PO Q6H PRN PRN Reason: FEVER Last Admin: 10/18/18 21:57 Dose: 650 mg Acetylcysteine (Mucomyst 20 Oral / Inh Use Only*) 200 mg NEB RQID [facility] Last Admin: 10/24/18 20:25 Dose: 200 mg Albuterol Sulfate (Ventolin 0.083% Nebulizer Soln -) 1 amp NEB RQID [facility] Last Admin: 10/24/18 20:25 Dose: 1 amp Amlodipine Besylate (Norvasc -) 10 mg PO DAILY [facility] Last Admin: 10/24/18 10:04 Dose: 10 mg Escitalopram Oxalate (Lexapro -) 10 mg PO DAILY [facility] Last Admin: 10/24/18 10:04 Dose: 10 mg Guaifenesin (Robitussin -) 10 ml PO Q6H PRN PRN Reason: COUGH Last Admin: 10/13/18 13:15 Dose: 10 ml Hydralazine HCl (Apresoline -) 50 mg PO BID [facility] Last Admin: 10/24/18 10:03 Dose: 50 mg Piperacillin Sod/Tazobactam (Sod 2.25 gm/ Dextrose) 50 mls @ 100 mls/hr IVPB Q8H-IV [facility]; Protocol Last Admin: 10/24/18 17:23 Dose: 100 mls/hr Insulin Aspart (Novolog Vial Sliding Scale -) 1 vial SQ TIDAC [facility]; Protocol Last Admin: 10/24/18 17:22 Dose: 4 units Metoprolol Succinate (Toprol Xl -) 50 mg PO DAILY [facility] Last Admin: 10/24/18 10:03 Dose: 50 mg Pantoprazole Sodium (Protonix -) 40 mg PO DAILY [facility] Last Admin: 10/24/18 10:03 Dose: 40 mg Prednisone (Deltasone -) 20 mg PO DAILY [facility] Last Admin: 10/24/18 10:03 Dose: 20 mg Quetiapine Fumarate (Seroquel -) 12.5 mg PO HS [facility] Rosuvastatin Calcium (Crestor -) 10 mg PO HS [facility] Last Admin: 10/23/18 21:50 Dose: 10 mg Sevelamer Carbonate (Renvela -) 800 mg PO TIDCM [facility] Last Admin: 10/24/18 17:23 Dose: 800 mg - Objective Vital Signs: Vital Signs Temperature 98.8 F 10/24/18 14:00 Pulse Rate 84 10/24/18 14:00 Respiratory Rate 18 10/24/18 14:00 Blood Pressure 112/55 L 10/24/18 14:00 O2 Sat by Pulse Oximetry (%) 93 L 10/24/18 09:00 Cardiovascular: Yes: WNL, Regular Rate and Rhythm Respiratory: Yes: WNL, Regular, CTA Bilaterally Gastrointestinal: Yes: WNL, Normal Bowel Sounds, Soft Labs: CBC, BMP 10/24/18 05:45 10/24/18 05:45 INR, PTT INR 0.95 (0.83-1.09) 10/22/18 09:48 Problem List - Problems (1) Pneumonia Code(s): J18.9 - PNEUMONIA, UNSPECIFIED ORGANISM (2) Acute on chronic systolic (congestive) heart failure Code(s): I50.23 - ACUTE ON CHRONIC SYSTOLIC (CONGESTIVE) HEART FAILURE (3) CKD (chronic kidney disease) Code(s): N18.9 - CHRONIC KIDNEY DISEASE, UNSPECIFIED (4) HTN (hypertension) Code(s): I10 - ESSENTIAL (PRIMARY) HYPERTENSION (5) HLD (hyperlipidemia) Code(s): E78.5 - HYPERLIPIDEMIA, UNSPECIFIED (6) Osteoarthritis Code(s): M19.90 - UNSPECIFIED OSTEOARTHRITIS, UNSPECIFIED SITE Qualifiers: Osteoarthritis location: knee Osteoarthritis type: unspecified Laterality : right Qualified Code(s): M17.11 - Unilateral primary osteoarthritis, right knee (7) CAD (coronary artery disease) Code(s): I25.10 - ATHSCL HEART DISEASE OF [place] CORONARY ARTERY W/O ANG PCTRS
[2018-10-24] MEDS: ROSUVASTATIN CA 10 MG TABLET (FP) PO SCH (21:55)
[2018-10-24] MEDS ORDERED: QUEtiapine FUMARATE 25 MG TABLET (FP) PO SCH (22:00)
[2018-10-25] MEDS ORDERED: PIPERACILLIN/TAZOBACTAM 2.25 GM VIAL IVPB ONE ×3 (01:39→17:26)
[2018-10-25] MEDS ORDERED: DEXTROSE 5%-WATER - 50 ML IVPB ONE ×3 (01:39→17:26)
[2018-10-25] MEDS: PIPERACILLIN/TAZOB 2.25 GM 2.25 GM in DEXTROSE 5%-WATER - 50 ML IVPB SCH ×3 (01:47→17:41)
[2018-10-25] MEDS: INSULIN SLIDING SCALE (NOVOLOG) 1 VIAL SQ SCH ×3 (06:03→18:20)
[2018-10-25 07:50] LABS: BASO % 0.2 % (0-2.0); EOS % 0.7 % (0-4.5); HEMATOCRIT 28.7 % (32.4-45.2); HEMOGLOBIN 9.4 GM/dL (10.7-15.3); LYMPH % 4.9 % (8-40); MCH 27.8 pg (25.7-33.7); MCHC 32.7 g/dl (32.0-36.0); MEAN CELL VOLUME 84.9 fl (80-96); MEAN PLT VOLUME 8.3 fl (7.5-11.1); MONO % 6.3 % (3.8-10.2); NEUT % 87.9 % (42.8-82.8); PLATELET COUNT 202 K/MM3 (134-434); RBC 3.39 M/mm3 (3.60-5.2); RDW 14.8 % (11.6-15.6)
[2018-10-25 08:10] LABS: ALBUMIN 2.4 g/dl (3.4-5.0); BILIRUBIN,TOTAL 0.5 mg/dL (0.2-1); BLOOD UREA NITROGEN 66.8 mg/dL (7-18); CALCIUM 9.8 mg/dL (8.5-10.1); CREATININE 2.7 mg/dL (0.55-1.3); MAGNESIUM 2.7 mg/dL (1.8-2.4); PHOSPHOROUS 3.7 mg/dL (2.5-4.9); TOT PROT 6.2 g/dl (6.4-8.2)
[2018-10-25] MEDS: ACETYLCYSTEINE 20% 200MG/ML 4 ML VIAL *FOR ORAL / INH USE ONLY NEB SCH ×4 (08:50→20:56)
[2018-10-25] MEDS: ALBUTEROL SO4 0.083% IH SOL 2.5 MG/3 ML VIAL.NEB. NEB SCH ×4 (08:50→20:56)
--- NOTE | 2018-10-25 09:18 | PN ---
Progress Note (short form) - Note Progress Note: Renal follow up for JACK/Fluid overload Pt seen and examined at the bedside awake and alert but agitated did not sleep well last night per daugther did not eat breakfast this am on NC O2 Vital Signs Temperature 98.3 F 10/24/18 10:00 Pulse Rate 92 H 10/24/18 10:00 Respiratory Rate 18 10/24/18 10:00 Blood Pressure 132/72 10/24/18 10:00 O2 Sat by Pulse Oximetry (%) 93 L 10/24/18 09:00 Intake & Output 10/21/18 10/22/18 10/23/18 10/24/18 23:59 23:59 23:59 23:59 Intake Total 120 230 170 Balance 120 230 170 NAD on NC O2 RRR scattered rales soft NT/ND no LE or sacral edema CBC, BMP 10/25/18 06:35 10/25/18 06:35 Current Medications Acetaminophen (Tylenol -) 650 mg PO Q6H PRN PRN Reason: FEVER Last Admin: 10/18/18 21:57 Dose: 650 mg Acetylcysteine (Mucomyst 20 Oral / Inh Use Only*) 200 mg NEB RQID [facility] Last Admin: 10/24/18 20:25 Dose: 200 mg Albuterol Sulfate (Ventolin 0.083% Nebulizer Soln -) 1 amp NEB RQID [facility] Last Admin: 10/24/18 20:25 Dose: 1 amp Amlodipine Besylate (Norvasc -) 10 mg PO DAILY [facility] Last Admin: 10/24/18 10:04 Dose: 10 mg Escitalopram Oxalate (Lexapro -) 10 mg PO DAILY [facility] Last Admin: 10/24/18 10:04 Dose: 10 mg Guaifenesin (Robitussin -) 10 ml PO Q6H PRN PRN Reason: COUGH Last Admin: 10/13/18 13:15 Dose: 10 ml Hydralazine HCl (Apresoline -) 50 mg PO BID [facility] Last Admin: 10/24/18 21:55 Dose: 50 mg Piperacillin Sod/Tazobactam (Sod 2.25 gm/ Dextrose) 50 mls @ 100 mls/hr IVPB Q8H-IV [facility]; Protocol Last Admin: 10/25/18 01:47 Dose: 100 mls/hr Insulin Aspart (Novolog Vial Sliding Scale -) 1 vial SQ TIDAC [facility]; Protocol Last Admin: 10/25/18 06:03 Dose: Not Given Metoprolol Succinate (Toprol Xl -) 50 mg PO DAILY [facility] Last Admin: 10/24/18 10:03 Dose: 50 mg Pantoprazole Sodium (Protonix -) 40 mg PO DAILY [facility] Last Admin: 10/24/18 10:03 Dose: 40 mg Prednisone (Deltasone -) 20 mg PO DAILY [facility] Last Admin: 10/24/18 10:03 Dose: 20 mg Quetiapine Fumarate (Seroquel -) 12.5 mg PO HS [facility] Last Admin: 10/24/18 21:55 Dose: 12.5 mg Rosuvastatin Calcium (Crestor -) 10 mg PO HS [facility] Last Admin: 10/24/18 21:55 Dose: 10 mg Sevelamer Carbonate (Renvela -) 800 mg PO TIDCM [facility] Last Admin: 10/24/18 17:23 Dose: 800 mg 88 year old woman with hx of CKD stage 3 (baseline Cr 1.4-1.6), CHF, HTN, HLD, DM, CAD who presented with sob and admitted for CHF exacerbation witih JACK on CKD. #JACK on CKD #Hyponatremia #CHF exacerbation vs. acute PNA #Hypertension #CAD #DM #Anemia BUN/Cr stable but remain elevated above baseline Serum Na improving encourged oral intake as tolerated CXR with congestive changes but resolution of effusion s/p thoracentesis maintain on fluid restriction of 1L daily defer diuretics given pt has poor oral intake Trend renal function and electrolytes daily Thank you Javon Cota DO
--- NOTE | 2018-10-25 09:19 | PN ---
Progress Note, Physician Chief Complaint: TELE: not attached Family at bedside No distress Continues to demonstrate sundowning behavior - Current Medication List Current Medications: Active Medications Acetaminophen (Tylenol -) 650 mg PO Q6H PRN PRN Reason: FEVER Last Admin: 10/18/18 21:57 Dose: 650 mg Acetylcysteine (Mucomyst 20 Oral / Inh Use Only*) 200 mg NEB RQID [facility] Last Admin: 10/24/18 20:25 Dose: 200 mg Albuterol Sulfate (Ventolin 0.083% Nebulizer Soln -) 1 amp NEB RQID [facility] Last Admin: 10/24/18 20:25 Dose: 1 amp Amlodipine Besylate (Norvasc -) 10 mg PO DAILY [facility] Last Admin: 10/24/18 10:04 Dose: 10 mg Escitalopram Oxalate (Lexapro -) 10 mg PO DAILY [facility] Last Admin: 10/24/18 10:04 Dose: 10 mg Guaifenesin (Robitussin -) 10 ml PO Q6H PRN PRN Reason: COUGH Last Admin: 10/13/18 13:15 Dose: 10 ml Hydralazine HCl (Apresoline -) 50 mg PO BID [facility] Last Admin: 10/24/18 21:55 Dose: 50 mg Piperacillin Sod/Tazobactam (Sod 2.25 gm/ Dextrose) 50 mls @ 100 mls/hr IVPB Q8H-IV [facility]; Protocol Last Admin: 10/25/18 01:47 Dose: 100 mls/hr Insulin Aspart (Novolog Vial Sliding Scale -) 1 vial SQ TIDAC [facility]; Protocol Last Admin: 10/25/18 06:03 Dose: Not Given Metoprolol Succinate (Toprol Xl -) 50 mg PO DAILY [facility] Last Admin: 10/24/18 10:03 Dose: 50 mg Pantoprazole Sodium (Protonix -) 40 mg PO DAILY [facility] Last Admin: 10/24/18 10:03 Dose: 40 mg Prednisone (Deltasone -) 20 mg PO DAILY [facility] Last Admin: 10/24/18 10:03 Dose: 20 mg Quetiapine Fumarate (Seroquel -) 12.5 mg PO HS [facility] Last Admin: 10/24/18 21:55 Dose: 12.5 mg Rosuvastatin Calcium (Crestor -) 10 mg PO HS [facility] Last Admin: 10/24/18 21:55 Dose: 10 mg Sevelamer Carbonate (Renvela -) 800 mg PO TIDCM [facility] Last Admin: 10/24/18 17:23 Dose: 800 mg - Objective Vital Signs: Vital Signs Temperature 98.4 F 10/25/18 06:00 Pulse Rate 88 10/25/18 06:00 Respiratory Rate 18 10/25/18 06:00 Blood Pressure 119/59 L 10/25/18 06:00 O2 Sat by Pulse Oximetry (%) 93 L 10/24/18 21:00 Constitutional: Yes: No Distress Cardiovascular: Yes: Regular Rate and Rhythm Respiratory: Yes: Rhonchi Gastrointestinal: Yes: Soft Edema: Yes Edema: LLE: 1+, RLE: 1+ Labs: CBC, BMP 10/25/18 06:35 10/25/18 06:35 INR, PTT INR 0.95 (0.83-1.09) 10/22/18 09:48 Assessment/Plan Assessment/Plan Acute on chronic systolic CHF, pleural effusion, ? PNA/parapneumonic effusion: -cont bb. marjan held for jack -thoracentesis done, CXR improved -Cont supp O2, close clinical monitoring Suspected underlying CAD: -no signs acs -pt/family have declined cath due to MIKE risks (see prior dr welsh notes) -Resume Plavix when feasible. JACK on CKD: -baseline creat 1.5-2.0 -renal fxn worsened here -Renal following HTN: -was running elevated, increased hydralazine to 50 mg BID -cont bb, ccb. -reasonably controlled now NSVT: -cont bb -sinus tachycardia noted on tele - likely in setting of PNA Altered MS: -head ct w/o acute changes -Likely due to Ativan, improved.
[2018-10-25] MEDS: amLODIPine BESYLATE 10 MG TABLET (FP) PO SCH ×2 (10:28→13:50)
[2018-10-25] MEDS: ESCITALOPRAM OXALATE 10 MG TABLET (FP) PO SCH ×2 (10:29→13:50)
[2018-10-25] MEDS: hydrALAZINE HCL 25 MG TABLET (FP) PO SCH ×3 (10:29→21:26)
[2018-10-25] MEDS: metoPROLOL SUCCINATE 25 MG TAB.SR.24H (FP) PO SCH ×2 (10:29→13:49)
[2018-10-25] MEDS: SEVELAMER CARBONATE 800 MG TAB (FP) PO SCH ×4 (10:30→18:47)
[2018-10-25] MEDS: PANTOPRAZOLE 40 MG TABLET (FP) PO SCH ×2 (10:53→13:49)
[2018-10-25] MEDS: predniSONE 20 MG TABLET (UD) PO SCH (13:45)
--- NOTE | 2018-10-25 14:22 | PN ---
Progress Note (short form) - Note Progress Note: Awake but slightly agitated. Continued issues with insomnia. Breathing is non-labored. Overall appears clinically better. Intake & Output 10/22/18 10/23/18 10/24/18 10/25/18 23:59 23:59 23:59 23:59 Intake Total 230 170 150 Balance 230 170 150 Last Vital Signs Temp Pulse Resp BP Pulse Ox 98.4 F 88 18 119/59 L 93 L 10/25/18 06:00 10/25/18 06:00 10/25/18 06:00 10/25/18 06:00 10/24/18 21:00 Active Medications Acetaminophen (Tylenol -) 650 mg PO Q6H PRN PRN Reason: FEVER Last Admin: 10/18/18 21:57 Dose: 650 mg Acetylcysteine (Mucomyst 20 Oral / Inh Use Only*) 200 mg NEB RQID [facility] Last Admin: 10/25/18 12:40 Dose: 200 mg Albuterol Sulfate (Ventolin 0.083% Nebulizer Soln -) 1 amp NEB RQID [facility] Last Admin: 10/25/18 12:40 Dose: 1 amp Amlodipine Besylate (Norvasc -) 10 mg PO DAILY [facility] Last Admin: 10/25/18 13:50 Dose: Not Given Escitalopram Oxalate (Lexapro -) 10 mg PO DAILY [facility] Last Admin: 10/25/18 13:50 Dose: Not Given Guaifenesin (Robitussin -) 10 ml PO Q6H PRN PRN Reason: COUGH Last Admin: 10/13/18 13:15 Dose: 10 ml Hydralazine HCl (Apresoline -) 50 mg PO BID [facility] Last Admin: 10/25/18 13:50 Dose: Not Given Piperacillin Sod/Tazobactam (Sod 2.25 gm/ Dextrose) 50 mls @ 100 mls/hr IVPB Q8H-IV [facility]; Protocol Last Admin: 10/25/18 10:53 Dose: 100 mls/hr Insulin Aspart (Novolog Vial Sliding Scale -) 1 vial SQ TIDAC [facility]; Protocol Last Admin: 10/25/18 13:48 Dose: Not Given Metoprolol Succinate (Toprol Xl -) 50 mg PO DAILY [facility] Last Admin: 10/25/18 13:49 Dose: Not Given Pantoprazole Sodium (Protonix -) 40 mg PO DAILY [facility] Last Admin: 10/25/18 13:49 Dose: Not Given Prednisone (Deltasone -) 20 mg PO DAILY [facility] Last Admin: 10/25/18 13:45 Dose: Not Given Quetiapine Fumarate (Seroquel -) 12.5 mg PO [facility] Last Admin: 10/24/18 21:55 Dose: 12.5 mg Rosuvastatin Calcium (Crestor -) 10 mg PO [facility] Last Admin: 10/24/18 21:55 Dose: 10 mg Sevelamer Carbonate (Renvela -) 800 mg PO TIDCM [facility] Last Admin: 10/25/18 13:51 Dose: Not Given Constitutional: Yes: NAD on NC O2 Eyes: Yes: WNL HENT: Yes: WNL Neck: Yes: WNL Cardiovascular: Yes: Regular Rate and Rhythm, S1, S2 Respiratory: Yes: Diminished at the bases, bilateral rhonchi Gastrointestinal: Yes: Normal Bowel Sounds, Soft Extremities: Yes: WNL Edema: No Labs: Laboratory Results - last 24 hr 10/24/18 10/25/18 10/25/18 16:46 05:31 06:35 WBC RBC Hgb Hct MCV MCH MCHC RDW Plt Count MPV Absolute Neuts (auto) Neutrophils % Lymphocytes % Monocytes % Eosinophils % Basophils % Nucleated RBC % Sodium 132 L Potassium 5.0 Chloride 89 L Carbon Dioxide 38 H Anion Gap 4 L BUN 66.8 H Creatinine 2.7 H Est GFR (CKD-EPI)AfAm 17.78 Est GFR (CKD-EPI)NonAf 15.34 POC Glucometer 210 106 Random Glucose 95 Calcium 9.8 Phosphorus 3.7 Magnesium 2.7 H Total Bilirubin 0.5 AST 16 ALT 25 Alkaline Phosphatase 57 Total Protein 6.2 L Albumin 2.4 L 10/25/18 10/25/18 06:35 11:59 WBC 15.0 H RBC 3.39 L Hgb 9.4 L Hct 28.7 L MCV 84.9 MCH 27.8 MCHC 32.7 RDW 14.8 Plt Count 202 MPV 8.3 Absolute Neuts (auto) 13.2 H Neutrophils % 87.9 H Lymphocytes % 4.9 L D Monocytes % 6.3 Eosinophils % 0.7 D Basophils % 0.2 Nucleated RBC % 0 Sodium Potassium Chloride Carbon Dioxide Anion Gap BUN Creatinine Est GFR (CKD-EPI)AfAm Est GFR (CKD-EPI)NonAf POC Glucometer 107 Random Glucose Calcium Phosphorus Magnesium Total Bilirubin AST ALT Alkaline Phosphatase Total Protein Albumin Assessment/Plan IMP DYSPNEA ACUTE ON CHRONIC CHF ACUTE ON CHRONIC KIDNEY DISEASE ? ASHD HTN DM HLD H/O CVA PNEUMONIA HYPONATREMIA OPACIFICATION LEFT HEMITHORAX ATELECTASIS/EFFUSION PLAN LASIX PRN SUPPLEMENTAL O2 INHALED BRONCHODILATORS MONITOR LYTES,RENAL FUNCTION PREDNISONE ABX PER ID CHEST PT FOLLOW FINAL PLEURAL STUDIES TRIAL OF SEROQUEL HS DR RYAN
--- NOTE | 2018-10-25 19:27 | PN ---
Progress Note, Physician History of Present Illness: LETHARGIC IN BED BREATHING SL LABORED AFEBRILE - Current Medication List Current Medications: Active Medications Acetaminophen (Tylenol -) 650 mg PO Q6H PRN PRN Reason: FEVER Last Admin: 10/18/18 21:57 Dose: 650 mg Acetylcysteine (Mucomyst 20 Oral / Inh Use Only*) 200 mg NEB RQID [facility] Last Admin: 10/25/18 16:30 Dose: 200 mg Albuterol Sulfate (Ventolin 0.083% Nebulizer Soln -) 1 amp NEB RQID [facility] Last Admin: 10/25/18 16:30 Dose: 1 amp Amlodipine Besylate (Norvasc -) 10 mg PO DAILY [facility] Last Admin: 10/25/18 13:50 Dose: Not Given Escitalopram Oxalate (Lexapro -) 10 mg PO DAILY [facility] Last Admin: 10/25/18 13:50 Dose: Not Given Guaifenesin (Robitussin -) 10 ml PO Q6H PRN PRN Reason: COUGH Last Admin: 10/13/18 13:15 Dose: 10 ml Hydralazine HCl (Apresoline -) 50 mg PO BID [facility] Last Admin: 10/25/18 13:50 Dose: Not Given Piperacillin Sod/Tazobactam (Sod 2.25 gm/ Dextrose) 50 mls @ 100 mls/hr IVPB Q8H-IV [facility]; Protocol Last Admin: 10/25/18 17:41 Dose: 100 mls/hr Insulin Aspart (Novolog Vial Sliding Scale -) 1 vial SQ TIDAC [facility]; Protocol Last Admin: 10/25/18 18:20 Dose: Not Given Metoprolol Succinate (Toprol Xl -) 50 mg PO DAILY [facility] Last Admin: 10/25/18 13:49 Dose: Not Given Pantoprazole Sodium (Protonix -) 40 mg PO DAILY [facility] Last Admin: 10/25/18 13:49 Dose: Not Given Prednisone (Deltasone -) 20 mg PO DAILY [facility] Last Admin: 10/25/18 13:45 Dose: Not Given Rosuvastatin Calcium (Crestor -) 10 mg PO HS [facility] Last Admin: 10/24/18 21:55 Dose: 10 mg Sevelamer Carbonate (Renvela -) 800 mg PO TIDCM [facility] Last Admin: 10/25/18 18:47 Dose: Not Given - Objective Vital Signs: Vital Signs Temperature 98.9 F 10/25/18 17:24 Pulse Rate 99 H 10/25/18 17:24 Respiratory Rate 18 10/25/18 17:24 Blood Pressure 114/87 10/25/18 17:24 O2 Sat by Pulse Oximetry (%) 100 10/25/18 09:00 Constitutional: Yes: No Distress, Obese Cardiovascular: Yes: Regular Rate and Rhythm, S1, S2 Respiratory: Yes: Diminished Gastrointestinal: Yes: Normal Bowel Sounds, Soft Labs: CBC, BMP 10/25/18 06:35 10/25/18 06:35 INR, PTT INR 0.95 (0.83-1.09) 10/22/18 09:48 Assessment/Plan CHF /PNEUMONIA R PLEURAL EFFUSION/ PATCHY INFILTRATES CKD DM CONTINUE ZOSYN
[2018-10-25] MEDS: ROSUVASTATIN CA 10 MG TABLET (FP) PO SCH (21:26)
--- NOTE | 2018-10-25 22:15 | PN ---
Progress Note, Physician History of Present Illness: Pt remains agitated Had dose of seroquel last pm However pt today not taking PO and hasn't taken any meds BP slightly on low side - Current Medication List Current Medications: Active Medications Acetaminophen (Tylenol -) 650 mg PO Q6H PRN PRN Reason: FEVER Last Admin: 10/18/18 21:57 Dose: 650 mg Acetylcysteine (Mucomyst 20 Oral / Inh Use Only*) 200 mg NEB RQID [facility] Last Admin: 10/25/18 20:56 Dose: 200 mg Albuterol Sulfate (Ventolin 0.083% Nebulizer Soln -) 1 amp NEB RQID [facility] Last Admin: 10/25/18 20:56 Dose: 1 amp Amlodipine Besylate (Norvasc -) 10 mg PO DAILY [facility] Last Admin: 10/25/18 13:50 Dose: Not Given Escitalopram Oxalate (Lexapro -) 10 mg PO DAILY [facility] Last Admin: 10/25/18 13:50 Dose: Not Given Guaifenesin (Robitussin -) 10 ml PO Q6H PRN PRN Reason: COUGH Last Admin: 10/13/18 13:15 Dose: 10 ml Hydralazine HCl (Apresoline -) 50 mg PO BID [facility] Last Admin: 10/25/18 21:26 Dose: 50 mg Piperacillin Sod/Tazobactam (Sod 2.25 gm/ Dextrose) 50 mls @ 100 mls/hr IVPB Q8H-IV [facility]; Protocol Last Admin: 10/25/18 17:41 Dose: 100 mls/hr Insulin Aspart (Novolog Vial Sliding Scale -) 1 vial SQ TIDAC [facility]; Protocol Last Admin: 10/25/18 18:20 Dose: Not Given Metoprolol Succinate (Toprol Xl -) 50 mg PO DAILY [facility] Last Admin: 10/25/18 13:49 Dose: Not Given Pantoprazole Sodium (Protonix -) 40 mg PO DAILY [facility] Last Admin: 10/25/18 13:49 Dose: Not Given Prednisone (Deltasone -) 20 mg PO DAILY [facility] Last Admin: 10/25/18 13:45 Dose: Not Given Rosuvastatin Calcium (Crestor -) 10 mg PO HS [facility] Last Admin: 10/25/18 21:26 Dose: 10 mg Sevelamer Carbonate (Renvela -) 800 mg PO TIDCM [facility] Last Admin: 10/25/18 18:47 Dose: Not Given - Objective Vital Signs: Vital Signs Temperature 98.9 F 10/25/18 17:24 Pulse Rate 99 H 10/25/18 17:24 Respiratory Rate 18 10/25/18 17:24 Blood Pressure 114/87 10/25/18 17:24 O2 Sat by Pulse Oximetry (%) 100 10/25/18 09:00 Neck: Yes: WNL, Supple Cardiovascular: Yes: WNL, Regular Rate and Rhythm Respiratory: Yes: Diminished Gastrointestinal: Yes: WNL, Normal Bowel Sounds, Soft Edema: No Labs: CBC, BMP 10/25/18 06:35 10/25/18 06:35 INR, PTT INR 0.95 (0.83-1.09) 10/22/18 09:48 Problem List - Problems (1) Metabolic encephalopathy Assessment/Plan: Pt more agitated and lethargic ?Slightly dehydrated Will hold seroquel tonny Michel d/w family about clinical status Encourage PO intake Worsening creatinine Code(s): G93.41 - METABOLIC ENCEPHALOPATHY (2) Pneumonia Assessment/Plan: S/P thoracentesis Follow cytology/cultures Repeat CXR Cont IV zosyn and po prednisone Cont nebulizers Cont BIPAP Code(s): J18.9 - PNEUMONIA, UNSPECIFIED ORGANISM (3) Acute on chronic systolic (congestive) heart failure Assessment/Plan: Lasix on hold due to increasing creatinine As per cardio Code(s): I50.23 - ACUTE ON CHRONIC SYSTOLIC (CONGESTIVE) HEART FAILURE (4) CKD (chronic kidney disease) Assessment/Plan: Creatinine increasing again Code(s): N18.9 - CHRONIC KIDNEY DISEASE, UNSPECIFIED (5) HTN (hypertension) Assessment/Plan: BP stable Cont metoprolol/lisinopril Code(s): I10 - ESSENTIAL (PRIMARY) HYPERTENSION (6) HLD (hyperlipidemia) Assessment/Plan: Cont crestor Code(s): E78.5 - HYPERLIPIDEMIA, UNSPECIFIED (7) Osteoarthritis Code(s): M19.90 - UNSPECIFIED OSTEOARTHRITIS, UNSPECIFIED SITE Qualifiers: Osteoarthritis location: knee Osteoarthritis type: unspecified Laterality : right Qualified Code(s): M17.11 - Unilateral primary osteoarthritis, right knee (8) CAD (coronary artery disease) Assessment/Plan: Cont plavix Code(s): I25.10 - ATHSCL HEART DISEASE OF [place] CORONARY ARTERY W/O ANG PCTRS
[2018-10-26] MEDS ORDERED: DEXTROSE 5%-WATER - 50 ML IVPB ONE ×3 (01:40→17:21)
[2018-10-26] MEDS ORDERED: PIPERACILLIN/TAZOBACTAM 2.25 GM VIAL IVPB ONE ×3 (01:40→17:21)
[2018-10-26] MEDS: PIPERACILLIN/TAZOB 2.25 GM 2.25 GM in DEXTROSE 5%-WATER - 50 ML IVPB SCH ×3 (01:48→17:46)
[2018-10-26] MEDS: INSULIN SLIDING SCALE (NOVOLOG) 1 VIAL SQ SCH ×3 (06:04→17:46)
[2018-10-26 07:33] LABS: BASO % 0.2 % (0-2.0); EOS % 2.9 % (0-4.5); HEMATOCRIT 29.8 % (32.4-45.2); HEMOGLOBIN 9.6 GM/dL (10.7-15.3); LYMPH % 5.2 % (8-40); MCH 27.7 pg (25.7-33.7); MCHC 32.2 g/dl (32.0-36.0); MEAN CELL VOLUME 86.1 fl (80-96); MEAN PLT VOLUME 8.3 fl (7.5-11.1); MONO % 6.1 % (3.8-10.2); NEUT % 85.6 % (42.8-82.8); PLATELET COUNT 198 K/MM3 (134-434); RBC 3.46 M/mm3 (3.60-5.2); RDW 14.5 % (11.6-15.6); WHITE BLOOD COUNT 12.8 K/mm3 (4.0-10.0)
[2018-10-26] MEDS: ACETYLCYSTEINE 20% 200MG/ML 4 ML VIAL *FOR ORAL / INH USE ONLY NEB SCH ×4 (08:14→20:00)
[2018-10-26] MEDS: ALBUTEROL SO4 0.083% IH SOL 2.5 MG/3 ML VIAL.NEB. NEB SCH ×4 (08:15→20:00)
[2018-10-26 08:22] LABS: BLOOD UREA NITROGEN 72.1 mg/dL (7-18); CALCIUM 10.1 mg/dL (8.5-10.1); CREATININE 2.9 mg/dL (0.55-1.3); MAGNESIUM 2.9 mg/dL (1.8-2.4); PHOSPHOROUS 4.6 mg/dL (2.5-4.9)
--- NOTE | 2018-10-26 09:50 | PN ---
Progress Note, Physician Chief Complaint: seen and examined No sig clinical change History of Present Illness: BP stable - Current Medication List Current Medications: Active Medications Acetaminophen (Tylenol -) 650 mg PO Q6H PRN PRN Reason: FEVER Last Admin: 10/18/18 21:57 Dose: 650 mg Acetylcysteine (Mucomyst 20 Oral / Inh Use Only*) 200 mg NEB RQID [facility] Last Admin: 10/26/18 08:14 Dose: 200 mg Albuterol Sulfate (Ventolin 0.083% Nebulizer Soln -) 1 amp NEB RQID [facility] Last Admin: 10/26/18 08:15 Dose: 1 amp Amlodipine Besylate (Norvasc -) 10 mg PO DAILY [facility] Last Admin: 10/25/18 13:50 Dose: Not Given Escitalopram Oxalate (Lexapro -) 10 mg PO DAILY [facility] Last Admin: 10/25/18 13:50 Dose: Not Given Guaifenesin (Robitussin -) 10 ml PO Q6H PRN PRN Reason: COUGH Last Admin: 10/13/18 13:15 Dose: 10 ml Hydralazine HCl (Apresoline -) 50 mg PO BID [facility] Last Admin: 10/25/18 21:26 Dose: 50 mg Piperacillin Sod/Tazobactam (Sod 2.25 gm/ Dextrose) 50 mls @ 100 mls/hr IVPB Q8H-IV [facility]; Protocol Last Admin: 10/26/18 01:48 Dose: 100 mls/hr Insulin Aspart (Novolog Vial Sliding Scale -) 1 vial SQ TIDAC [facility]; Protocol Last Admin: 10/26/18 06:04 Dose: Not Given Metoprolol Succinate (Toprol Xl -) 50 mg PO DAILY [facility] Last Admin: 10/25/18 13:49 Dose: Not Given Pantoprazole Sodium (Protonix -) 40 mg PO DAILY [facility] Last Admin: 10/25/18 13:49 Dose: Not Given Prednisone (Deltasone -) 20 mg PO DAILY [facility] Last Admin: 10/25/18 13:45 Dose: Not Given Rosuvastatin Calcium (Crestor -) 10 mg PO HS [facility] Last Admin: 10/25/18 21:26 Dose: 10 mg Sevelamer Carbonate (Renvela -) 800 mg PO TIDCM [facility] Last Admin: 10/25/18 18:47 Dose: Not Given - Objective Vital Signs: Vital Signs Temperature 98.3 F 10/26/18 06:03 Pulse Rate 100 H 10/26/18 06:03 Respiratory Rate 20 10/26/18 06:03 Blood Pressure 132/56 L 10/26/18 06:03 O2 Sat by Pulse Oximetry (%) 97 10/25/18 21:00 Constitutional: Yes: No Distress Cardiovascular: Yes: Regular Rate and Rhythm Respiratory: Yes: Rhonchi Gastrointestinal: Yes: Soft, Abdomen, Obese Edema: No Neurological: Yes: Alert Labs: CBC, BMP 10/26/18 06:32 10/26/18 06:32 INR, PTT INR 0.95 (0.83-1.09) 10/22/18 09:48 Laboratory Tests 10/26/18 10/26/18 06:32 06:32 WBC 12.8 H Hgb 9.6 L Plt Count 198 Sodium 136 Potassium 5.0 BUN 72.1 H Creatinine 2.9 H Magnesium 2.9 H Assessment/Plan Assessment/Plan Acute on chronic systolic CHF, pleural effusion, ? PNA/parapneumonic effusion: -cont bb. marjan held for ruth -thoracentesis done, CXR improved -Cont supp O2, close clinical monitoring Suspected underlying CAD: -no signs acs -pt/family have declined cath due to MIKE risks (see prior dr welsh notes) -Resume Plavix when feasible. RUTH on CKD: -baseline creat 1.5-2.0 -renal fxn worsened here -Renal following HTN: -Stable -cont current Rx NSVT: -cont bb -sinus tachycardia noted on tele - likely in setting of PNA Altered MS: component of sundowning -head ct w/o acute changes -Likely due to Ativan, improved.
[2018-10-26] MEDS: SEVELAMER CARBONATE 800 MG TAB (FP) PO SCH ×3 (09:55→17:46)
[2018-10-26] MEDS: hydrALAZINE HCL 25 MG TABLET (FP) PO SCH ×2 (09:56→21:23)
[2018-10-26] MEDS: ESCITALOPRAM OXALATE 10 MG TABLET (FP) PO SCH (09:56)
[2018-10-26] MEDS: predniSONE 20 MG TABLET (UD) PO SCH (09:56)
[2018-10-26] MEDS: metoPROLOL SUCCINATE 25 MG TAB.SR.24H (FP) PO SCH (09:57)
[2018-10-26] MEDS: PANTOPRAZOLE 40 MG TABLET (FP) PO SCH (09:57)
[2018-10-26] MEDS: amLODIPine BESYLATE 10 MG TABLET (FP) PO SCH (09:57)
--- NOTE | 2018-10-26 10:41 | PN ---
Progress Note (short form) - Note Progress Note: Renal follow up for JACK/Fluid overload Pt seen and examined at the bedside awake and alert daughter reports better oral intake this morning no chest pain, abd pain, fever or chills on NC O2 Vital Signs Temperature 98.3 F 10/26/18 06:03 Pulse Rate 100 H 10/26/18 06:03 Respiratory Rate 20 10/26/18 06:03 Blood Pressure 132/56 L 10/26/18 06:03 O2 Sat by Pulse Oximetry (%) 97 10/25/18 21:00 Intake & Output 10/23/18 10/24/18 10/25/18 10/26/18 23:59 23:59 23:59 23:59 Intake Total 170 150 70 50 Balance 170 150 70 50 Weight 68.039 kg NAD on NC O2 RRR scattered rales soft NT/ND no LE or sacral edema CBC, BMP 10/26/18 06:32 10/26/18 06:32 Laboratory Tests 10/24/18 10/26/18 05:45 06:32 Calcium 10.0 10.1 Phosphorus 3.5 4.6 Magnesium 2.6 H 2.9 H Current Medications Acetaminophen (Tylenol -) 650 mg PO Q6H PRN PRN Reason: FEVER Last Admin: 10/18/18 21:57 Dose: 650 mg Acetylcysteine (Mucomyst 20 Oral / Inh Use Only*) 200 mg NEB RQID [facility] Last Admin: 10/26/18 08:14 Dose: 200 mg Albuterol Sulfate (Ventolin 0.083% Nebulizer Soln -) 1 amp NEB RQID [facility] Last Admin: 10/26/18 08:15 Dose: 1 amp Amlodipine Besylate (Norvasc -) 10 mg PO DAILY [facility] Last Admin: 10/26/18 09:57 Dose: 10 mg Escitalopram Oxalate (Lexapro -) 10 mg PO DAILY [facility] Last Admin: 10/26/18 09:56 Dose: 10 mg Guaifenesin (Robitussin -) 10 ml PO Q6H PRN PRN Reason: COUGH Last Admin: 10/13/18 13:15 Dose: 10 ml Hydralazine HCl (Apresoline -) 50 mg PO BID [facility] Last Admin: 10/26/18 09:56 Dose: 50 mg Piperacillin Sod/Tazobactam (Sod 2.25 gm/ Dextrose) 50 mls @ 100 mls/hr IVPB Q8H-IV [facility]; Protocol Last Admin: 10/26/18 09:57 Dose: 100 mls/hr Insulin Aspart (Novolog Vial Sliding Scale -) 1 vial SQ TIDAC [facility]; Protocol Last Admin: 10/26/18 06:04 Dose: Not Given Metoprolol Succinate (Toprol Xl -) 50 mg PO DAILY [facility] Last Admin: 10/26/18 09:57 Dose: 50 mg Pantoprazole Sodium (Protonix -) 40 mg PO DAILY [facility] Last Admin: 10/26/18 09:57 Dose: 40 mg Prednisone (Deltasone -) 20 mg PO DAILY [facility] Last Admin: 10/26/18 09:56 Dose: 20 mg Rosuvastatin Calcium (Crestor -) 10 mg PO HS [facility] Last Admin: 10/25/18 21:26 Dose: 10 mg Sevelamer Carbonate (Renvela -) 800 mg PO TIDCM [facility] Last Admin: 10/26/18 09:55 Dose: 800 mg 88 year old woman with hx of CKD stage 3 (baseline Cr 1.4-1.6), CHF, HTN, HLD, DM, CAD who presented with sob and admitted for CHF exacerbation witih JACK on CKD. #JACK on CKD #Hyponatremia #CHF exacerbation vs. acute PNA #Hypertension #CAD #DM #Anemia BUN/Cr gradually increasing, given she is not on diuretics suspect mild intravascular volume depletion in setting of poor oral intake encourged solute intake check urine studies and bladder scan today CXR with congestive changes but resolution of effusion s/p thoracentesis can liberalize fluid intake Trend renal function and electrolytes daily Thank you Javon Cota DO
[2018-10-26 13:17] LABS: EPI CELLS 6.6 /HPF (0-5/HPF); HYALINE CASTS 17 /lpf (0-8); URINE APPEARANCE CLOUDY; URINE BACTERIA 0.7 /hpf (NEGATIVE); URINE BILIRUBIN NEGATIVE (NEGATIVE); URINE COLOR YELLOW; URINE GLUCOSE (UA) TRACE (NEGATIVE); URINE KETONE TRACE (NEGATIVE); URINE LEUK ESTERASE NEGATIVE (NEGATIVE); URINE NITRITE NEGATIVE (NEGATIVE); URINE PROTEIN 3+ (NEGATIVE); URINE RBC 3 /hpf (0-4); URINE UROBILINOGEN 0.2 mg/dL (0.2-1.0); URINE WBC 4 /hpf (0-5)
--- NOTE | 2018-10-26 13:18 | PN ---
Progress Note (short form) - Note Progress Note: Resting in NAD. Continued issues with insomnia/confusion. Breathing is non-labored. Overall appears clinically better. Intake & Output 10/23/18 10/24/18 10/25/18 10/26/18 23:59 23:59 23:59 23:59 Intake Total 170 150 70 300 Output Total 100 Balance 170 150 70 200 Weight 150 lb Last Vital Signs Temp Pulse Resp BP Pulse Ox 98.3 F 100 H 20 132/56 L 98 10/26/18 06:03 10/26/18 06:03 10/26/18 06:03 10/26/18 06:03 10/26/18 09:00 Active Medications Acetaminophen (Tylenol -) 650 mg PO Q6H PRN PRN Reason: FEVER Last Admin: 10/18/18 21:57 Dose: 650 mg Acetylcysteine (Mucomyst 20 Oral / Inh Use Only*) 200 mg NEB RQID [facility] Last Admin: 10/26/18 11:42 Dose: 200 mg Albuterol Sulfate (Ventolin 0.083% Nebulizer Soln -) 1 amp NEB RQID [facility] Last Admin: 10/26/18 11:42 Dose: 1 amp Amlodipine Besylate (Norvasc -) 10 mg PO DAILY [facility] Last Admin: 10/26/18 09:57 Dose: 10 mg Escitalopram Oxalate (Lexapro -) 10 mg PO DAILY [facility] Last Admin: 10/26/18 09:56 Dose: 10 mg Guaifenesin (Robitussin -) 10 ml PO Q6H PRN PRN Reason: COUGH Last Admin: 10/13/18 13:15 Dose: 10 ml Hydralazine HCl (Apresoline -) 50 mg PO BID [facility] Last Admin: 10/26/18 09:56 Dose: 50 mg Piperacillin Sod/Tazobactam (Sod 2.25 gm/ Dextrose) 50 mls @ 100 mls/hr IVPB Q8H-IV [facility]; Protocol Last Admin: 10/26/18 09:57 Dose: 100 mls/hr Insulin Aspart (Novolog Vial Sliding Scale -) 1 vial SQ TIDAC [facility]; Protocol Last Admin: 10/26/18 12:01 Dose: Not Given Metoprolol Succinate (Toprol Xl -) 50 mg PO DAILY [facility] Last Admin: 10/26/18 09:57 Dose: 50 mg Pantoprazole Sodium (Protonix -) 40 mg PO DAILY [facility] Last Admin: 10/26/18 09:57 Dose: 40 mg Prednisone (Deltasone -) 20 mg PO DAILY [facility] Last Admin: 10/26/18 09:56 Dose: 20 mg Rosuvastatin Calcium (Crestor -) 10 mg PO HS [facility] Last Admin: 10/25/18 21:26 Dose: 10 mg Sevelamer Carbonate (Renvela -) 800 mg PO TIDCM [facility] Last Admin: 10/26/18 12:02 Dose: Not Given Constitutional: Yes: NAD on NC O2 Eyes: Yes: WNL HENT: Yes: WNL Neck: Yes: WNL Cardiovascular: Yes: Regular Rate and Rhythm, S1, S2 Respiratory: Yes: Diminished at the bases, bilateral rhonchi Gastrointestinal: Yes: Normal Bowel Sounds, Soft Extremities: Yes: WNL Edema: No Labs: Laboratory Results - last 24 hr 10/25/18 10/26/18 10/26/18 17:35 05:53 06:32 WBC 12.8 H RBC 3.46 L Hgb 9.6 L Hct 29.8 L MCV 86.1 MCH 27.7 MCHC 32.2 RDW 14.5 Plt Count 198 MPV 8.3 Absolute Neuts (auto) 11.0 H Neutrophils % 85.6 H Lymphocytes % 5.2 L Monocytes % 6.1 Eosinophils % 2.9 D Basophils % 0.2 Nucleated RBC % 0 Sodium Potassium Chloride Carbon Dioxide Anion Gap BUN Creatinine Est GFR (CKD-EPI)AfAm Est GFR (CKD-EPI)NonAf POC Glucometer 95 112 Random Glucose Calcium Phosphorus Magnesium U Random Total Protein Ur Random Sodium Ur Random Chloride 10/26/18 10/26/18 10/26/18 06:32 11:58 12:36 WBC RBC Hgb Hct MCV MCH MCHC RDW Plt Count MPV Absolute Neuts (auto) Neutrophils % Lymphocytes % Monocytes % Eosinophils % Basophils % Nucleated RBC % Sodium 136 Potassium 5.0 Chloride 90 L Carbon Dioxide 36 H Anion Gap 9 BUN 72.1 H Creatinine 2.9 H Est GFR (CKD-EPI)AfAm 16.31 Est GFR (CKD-EPI)NonAf 14.07 POC Glucometer 149 Random Glucose 102 Calcium 10.1 Phosphorus 4.6 Magnesium 2.9 H U Random Total Protein Ur Random Sodium < 18 L Ur Random Chloride < 11 L 10/26/18 10/26/18 12:36 12:36 WBC RBC Hgb Hct MCV MCH MCHC RDW Plt Count MPV Absolute Neuts (auto) Neutrophils % Lymphocytes % Monocytes % Eosinophils % Basophils % Nucleated RBC % Sodium Potassium Chloride Carbon Dioxide Anion Gap BUN Creatinine Est GFR (CKD-EPI)AfAm Est GFR (CKD-EPI)NonAf POC Glucometer Random Glucose Calcium Phosphorus Magnesium U Random Total Protein 222.1 H Ur Random Sodium < 18 L Ur Random Chloride Assessment/Plan IMP DYSPNEA ACUTE ON CHRONIC CHF ACUTE ON CHRONIC KIDNEY DISEASE ? ASHD HTN DM HLD H/O CVA PNEUMONIA HYPONATREMIA OPACIFICATION LEFT HEMITHORAX ATELECTASIS/EFFUSION PLAN LASIX ON HOLD SUPPLEMENTAL O2 NEEDED INHALED BRONCHODILATORS PRN MONITOR LYTES,RENAL FUNCTION PREDNISONE ABX PER ID CHEST PT FOLLOW FINAL PLEURAL STUDIES SEROQUEL HS DR RYAN
--- NOTE | 2018-10-26 18:52 | PN ---
Progress Note, Physician History of Present Illness: Pt more awake today and less agitated Pt tolerating some PO - Current Medication List Current Medications: Active Medications Acetaminophen (Tylenol -) 650 mg PO Q6H PRN PRN Reason: FEVER Last Admin: 10/18/18 21:57 Dose: 650 mg Acetylcysteine (Mucomyst 20 Oral / Inh Use Only*) 200 mg NEB RQID [facility] [place] Last Admin: 10/26/18 16:17 Dose: 200 mg Albuterol Sulfate (Ventolin 0.083% Nebulizer Soln -) 1 amp NEB RQID [facility] [place] Last Admin: 10/26/18 16:17 Dose: 1 amp Amlodipine Besylate (Norvasc -) 10 mg PO DAILY [facility] [place] Last Admin: 10/26/18 09:57 Dose: 10 mg Escitalopram Oxalate (Lexapro -) 10 mg PO DAILY [facility] [place] Last Admin: 10/26/18 09:56 Dose: 10 mg Guaifenesin (Robitussin -) 10 ml PO Q6H PRN PRN Reason: COUGH Last Admin: 10/13/18 13:15 Dose: 10 ml Hydralazine HCl (Apresoline -) 50 mg PO BID [facility] [place] Last Admin: 10/26/18 09:56 Dose: 50 mg Piperacillin Sod/Tazobactam (Sod 2.25 gm/ Dextrose) 50 mls @ 100 mls/hr IVPB Q8H-IV [facility] [place]; Protocol Last Admin: 10/26/18 17:46 Dose: 100 mls/hr Insulin Aspart (Novolog Vial Sliding Scale -) 1 vial SQ TIDAC [facility] [place]; Protocol Last Admin: 10/26/18 17:46 Dose: 2 units Metoprolol Succinate (Toprol Xl -) 50 mg PO DAILY [facility] [place] Last Admin: 10/26/18 09:57 Dose: 50 mg Pantoprazole Sodium (Protonix -) 40 mg PO DAILY [facility] [place] Last Admin: 10/26/18 09:57 Dose: 40 mg Prednisone (Deltasone -) 20 mg PO DAILY [facility] [place] Last Admin: 10/26/18 09:56 Dose: 20 mg Rosuvastatin Calcium (Crestor -) 10 mg PO HS [facility] [place] Last Admin: 10/25/18 21:26 Dose: 10 mg Sevelamer Carbonate (Renvela -) 800 mg PO TIDCM [facility] [place] Last Admin: 10/26/18 17:46 Dose: 800 mg - Objective Vital Signs: Vital Signs Temperature 97.6 F 10/26/18 18:08 Pulse Rate 92 H 10/26/18 18:08 Respiratory Rate 20 10/26/18 18:08 Blood Pressure 146/78 10/26/18 18:08 O2 Sat by Pulse Oximetry (%) 98 10/26/18 09:00 Neck: Yes: WNL, Supple Cardiovascular: Yes: WNL, Regular Rate and Rhythm Respiratory: Yes: Diminished Gastrointestinal: Yes: WNL, Normal Bowel Sounds, Soft Edema: No Labs: CBC, BMP 10/26/18 06:32 10/26/18 06:32 INR, PTT INR 0.95 (0.83-1.09) 10/22/18 09:48 Problem List - Problems (1) Metabolic encephalopathy Assessment/Plan: Pt more awake ?Slightly dehydrated DC seroquel Encourage PO intake Worsening creatinine Code(s): G93.41 - METABOLIC ENCEPHALOPATHY (2) Pneumonia Assessment/Plan: S/P thoracentesis Follow cytology/cultures Repeat CXR Cont IV zosyn and po prednisone Cont nebulizers Cont BIPAP Code(s): J18.9 - PNEUMONIA, UNSPECIFIED ORGANISM (3) Acute on chronic systolic (congestive) heart failure Assessment/Plan: Lasix on hold due to increasing creatinine As per cardio Code(s): I50.23 - ACUTE ON CHRONIC SYSTOLIC (CONGESTIVE) HEART FAILURE (4) CKD (chronic kidney disease) Assessment/Plan: Creatinine increasing again Code(s): N18.9 - CHRONIC KIDNEY DISEASE, UNSPECIFIED (5) HTN (hypertension) Assessment/Plan: BP stable Cont metoprolol/lisinopril Code(s): I10 - ESSENTIAL (PRIMARY) HYPERTENSION (6) HLD (hyperlipidemia) Assessment/Plan: Cont crestor Code(s): E78.5 - HYPERLIPIDEMIA, UNSPECIFIED (7) Osteoarthritis Code(s): M19.90 - UNSPECIFIED OSTEOARTHRITIS, UNSPECIFIED SITE Qualifiers: Osteoarthritis location: knee Osteoarthritis type: unspecified Laterality : right Qualified Code(s): M17.11 - Unilateral primary osteoarthritis, right knee (8) CAD (coronary artery disease) Assessment/Plan: Cont plavix Code(s): I25.10 - ATHSCL HEART DISEASE OF [place] CORONARY ARTERY W/O ANG PCTRS
[2018-10-26] MEDS: ACETAMINOPHEN 325 MG TABLET (FP) PO PRN (20:28)
[2018-10-26] MEDS: ROSUVASTATIN CA 10 MG TABLET (FP) PO SCH (21:23)
[2018-10-27] MEDS ORDERED: PIPERACILLIN/TAZOBACTAM 2.25 GM VIAL IVPB ONE ×3 (00:35→17:11)
[2018-10-27] MEDS ORDERED: DEXTROSE 5%-WATER - 50 ML IVPB ONE ×3 (00:35→17:11)
[2018-10-27] MEDS: PIPERACILLIN/TAZOB 2.25 GM 2.25 GM in DEXTROSE 5%-WATER - 50 ML IVPB SCH ×3 (01:09→17:15)
[2018-10-27] MEDS: INSULIN SLIDING SCALE (NOVOLOG) 1 VIAL SQ SCH ×3 (06:05→17:16)
[2018-10-27 07:20] LABS: BASO % 0.3 % (0-2.0); EOS % 2.3 % (0-4.5); HEMATOCRIT 28.6 % (32.4-45.2); HEMOGLOBIN 9.1 GM/dL (10.7-15.3); LYMPH % 6.2 % (8-40); MCH 27.4 pg (25.7-33.7); MEAN CELL VOLUME 85.6 fl (80-96); MEAN PLT VOLUME 8.2 fl (7.5-11.1); MONO % 7.2 % (3.8-10.2); PLATELET COUNT 188 K/MM3 (134-434); RBC 3.34 M/mm3 (3.60-5.2); RDW 14.7 % (11.6-15.6); WHITE BLOOD COUNT 11.2 K/mm3 (4.0-10.0)
[2018-10-27] MEDS: ACETYLCYSTEINE 20% 200MG/ML 4 ML VIAL *FOR ORAL / INH USE ONLY NEB SCH ×4 (07:30→20:30)
[2018-10-27] MEDS: ALBUTEROL SO4 0.083% IH SOL 2.5 MG/3 ML VIAL.NEB. NEB SCH ×4 (07:30→20:30)
[2018-10-27 08:07] LABS: BLOOD UREA NITROGEN 79.3 mg/dL (7-18); CALCIUM 9.9 mg/dL (8.5-10.1); CREATININE 3.2 mg/dL (0.55-1.3); MAGNESIUM 2.9 mg/dL (1.8-2.4); PHOSPHOROUS 4.8 mg/dL (2.5-4.9); POTASSIUM 4.5 mmol/L (3.5-5.1)
[2018-10-27] MEDS: SEVELAMER CARBONATE 800 MG TAB (FP) PO SCH ×3 (08:15→17:17)
--- NOTE | 2018-10-27 09:17 | PN ---
Progress Note, Physician Chief Complaint: insomnia History of Present Illness: son states main issue is her being awake and sometimes agitated at night she is currently sleeping deeply and not easily rousable to communicate. family seated at bedside son denies sob at night or during days no cp, palpit, leg swelling no cigs - Current Medication List Current Medications: Active Medications Acetaminophen (Tylenol -) 650 mg PO Q6H PRN PRN Reason: FEVER Last Admin: 10/26/18 20:28 Dose: 650 mg Acetylcysteine (Mucomyst 20 Oral / Inh Use Only*) 200 mg NEB RQID [facility] Last Admin: 10/27/18 07:30 Dose: 200 mg Albuterol Sulfate (Ventolin 0.083% Nebulizer Soln -) 1 amp NEB RQID [facility] Last Admin: 10/27/18 07:30 Dose: 1 amp Amlodipine Besylate (Norvasc -) 10 mg PO DAILY [facility] Last Admin: 10/26/18 09:57 Dose: 10 mg Escitalopram Oxalate (Lexapro -) 10 mg PO DAILY [facility] Last Admin: 10/26/18 09:56 Dose: 10 mg Guaifenesin (Robitussin -) 10 ml PO Q6H PRN PRN Reason: COUGH Last Admin: 10/13/18 13:15 Dose: 10 ml Hydralazine HCl (Apresoline -) 50 mg PO BID [facility] Last Admin: 10/26/18 21:23 Dose: 50 mg Piperacillin Sod/Tazobactam (Sod 2.25 gm/ Dextrose) 50 mls @ 100 mls/hr IVPB Q8H-IV [facility]; Protocol Last Admin: 10/27/18 01:09 Dose: 100 mls/hr Insulin Aspart (Novolog Vial Sliding Scale -) 1 vial SQ TIDAC [facility]; Protocol Last Admin: 10/27/18 06:05 Dose: Not Given Metoprolol Succinate (Toprol Xl -) 50 mg PO DAILY [facility] Last Admin: 10/26/18 09:57 Dose: 50 mg Pantoprazole Sodium (Protonix -) 40 mg PO DAILY [facility] Last Admin: 10/26/18 09:57 Dose: 40 mg Prednisone (Deltasone -) 20 mg PO DAILY [facility] Last Admin: 10/26/18 09:56 Dose: 20 mg Rosuvastatin Calcium (Crestor -) 10 mg PO HS [facility] Last Admin: 10/26/18 21:23 Dose: 10 mg Sevelamer Carbonate (Renvela -) 800 mg PO TIDCM [facility] Last Admin: 10/27/18 08:15 Dose: 800 mg - Objective Vital Signs: Vital Signs Temperature 98.1 F 10/27/18 06:00 Pulse Rate 94 H 10/27/18 06:00 Respiratory Rate 18 10/27/18 06:00 Blood Pressure 125/65 10/27/18 06:00 O2 Sat by Pulse Oximetry (%) 96 10/27/18 06:00 Constitutional: Yes: No Distress, Calm Eyes: No: Sclera Icterus HENT: No: Nasal Congestion Cardiovascular: Yes: Regular Rate and Rhythm, JVD (possible (TDS)), S1, S2, Other (PMI non diplaced). No: Gallop, Murmur Respiratory: Yes: CTA Bilaterally. No: Accessory Muscle Use Gastrointestinal: Yes: Normal Bowel Sounds, Soft. No: Tenderness Musculoskeletal: Yes: Other (No kyphosis) Extremities: No: Cyanosis Edema: No Integumentary: No: Jaundice Neurological: Yes: Lethargy. No: Seizure Psychiatric: No: Agitated Labs: CBC, BMP 10/27/18 06:32 10/27/18 06:32 INR, PTT INR 0.95 (0.83-1.09) 10/22/18 09:48 Assessment/Plan Echo: LVSF appears mldly reduced, 40-45%. nl RV. mild MR. Acute on chronic systolic CHF, pleural effusion, ? PNA/parapneumonic effusion: -EF 40-45% -cont bb. marjan on hold for continuing jack -thoracentesis done, CXR improved (10/27: L lung intraalveolar infiltrates much reduced vs prior, L effusion present) -given ongoing congestive findings on xray, with worsening renal fxn, will dose lasix prn based on phys exam/sx's -10/27: suspect she remains mildly volume up, but resp status stable--holding lasix until renal w/u is completed -Cont supp O2, close clinical monitoring, pulm followup Suspected underlying CAD: -no signs acs -pt/family have declined cath due to MIKE risks (see prior dr welsh notes) -Resume Plavix when feasible. JACK on CKD: -baseline creat 1.5-2.0 -renal fxn worsened here, while not on diuretics -Renal following, suspects intravasc vol depletion due to poor oral intake-- workup per their recs HTN: -Stable -cont current Rx NSVT: -cont bb -sinus tachycardia noted on tele - likely in setting of PNA Altered MS: component of -head ct w/o acute changes -Likely due to Ativan, improved.
[2018-10-27] MEDS: PANTOPRAZOLE 40 MG TABLET (FP) PO SCH (10:18)
[2018-10-27] MEDS: predniSONE 20 MG TABLET (UD) PO SCH (10:19)
[2018-10-27] MEDS: ESCITALOPRAM OXALATE 10 MG TABLET (FP) PO SCH (10:19)
[2018-10-27] MEDS: metoPROLOL SUCCINATE 25 MG TAB.SR.24H (FP) PO SCH (10:19)
[2018-10-27] MEDS: amLODIPine BESYLATE 10 MG TABLET (FP) PO SCH (10:20)
[2018-10-27] MEDS: hydrALAZINE HCL 25 MG TABLET (FP) PO SCH ×2 (10:22→22:55)
--- NOTE | 2018-10-27 12:31 | PN ---
Progress Note (short form) - Note Progress Note: Agitated but in NAD on NC O2. Son at the bedside. Still with issues with Insomnia and Delerium. CXR: bilateral mild increase in Pulmonary vascular congestion. Intake & Output 10/24/18 10/25/18 10/26/18 10/27/18 23:59 23:59 23:59 23:59 Intake Total 150 70 705 50 Output Total 100 Balance 150 70 605 50 Weight 150 lb Last Vital Signs Temp Pulse Resp BP Pulse Ox 98.1 F 94 H 18 125/65 96 10/27/18 06:00 10/27/18 06:00 10/27/18 06:00 10/27/18 06:00 10/27/18 06:00 Active Medications Acetaminophen (Tylenol -) 650 mg PO Q6H PRN PRN Reason: FEVER Last Admin: 10/26/18 20:28 Dose: 650 mg Acetylcysteine (Mucomyst 20 Oral / Inh Use Only*) 200 mg NEB RQID [facility] Last Admin: 10/27/18 07:30 Dose: 200 mg Albuterol Sulfate (Ventolin 0.083% Nebulizer Soln -) 1 amp NEB RQID [facility] Last Admin: 10/27/18 07:30 Dose: 1 amp Amlodipine Besylate (Norvasc -) 10 mg PO DAILY [facility] Last Admin: 10/27/18 10:20 Dose: 10 mg Escitalopram Oxalate (Lexapro -) 10 mg PO DAILY [facility] Last Admin: 10/27/18 10:19 Dose: 10 mg Guaifenesin (Robitussin -) 10 ml PO Q6H PRN PRN Reason: COUGH Last Admin: 10/13/18 13:15 Dose: 10 ml Hydralazine HCl (Apresoline -) 50 mg PO BID [facility] Last Admin: 10/27/18 10:22 Dose: 50 mg Piperacillin Sod/Tazobactam (Sod 2.25 gm/ Dextrose) 50 mls @ 100 mls/hr IVPB Q8H-IV [facility]; Protocol Last Admin: 10/27/18 10:21 Dose: 100 mls/hr Insulin Aspart (Novolog Vial Sliding Scale -) 1 vial SQ TIDAC [facility]; Protocol Last Admin: 10/27/18 10:32 Dose: Not Given Metoprolol Succinate (Toprol Xl -) 50 mg PO DAILY [facility] Last Admin: 10/27/18 10:19 Dose: 50 mg Pantoprazole Sodium (Protonix -) 40 mg PO DAILY [facility] Last Admin: 10/27/18 10:18 Dose: 40 mg Prednisone (Deltasone -) 20 mg PO DAILY [facility] Last Admin: 10/27/18 10:19 Dose: 20 mg Rosuvastatin Calcium (Crestor -) 10 mg PO HS [facility] Last Admin: 10/26/18 21:23 Dose: 10 mg Sevelamer Carbonate (Renvela -) 800 mg PO TIDCM [facility] Last Admin: 10/27/18 12:04 Dose: 800 mg Constitutional: Yes: NAD on NC O2 Eyes: Yes: WNL HENT: Yes: WNL Neck: Yes: WNL Cardiovascular: Yes: Regular Rate and Rhythm, S1, S2 Respiratory: Yes: Diminished at the bases, bilateral rhonchi / rales Gastrointestinal: Yes: Normal Bowel Sounds, Soft Extremities: Yes: WNL Edema: No Labs: Laboratory Results - last 24 hr 10/26/18 10/26/18 10/26/18 12:36 12:36 12:36 WBC RBC Hgb Hct MCV MCH MCHC RDW Plt Count MPV Absolute Neuts (auto) Neutrophils % Lymphocytes % Monocytes % Eosinophils % Basophils % Nucleated RBC % Sodium Potassium Chloride Carbon Dioxide Anion Gap BUN Creatinine Est GFR (CKD-EPI)AfAm Est GFR (CKD-EPI)NonAf POC Glucometer Random Glucose Calcium Phosphorus Magnesium Urine Color Urine Appearance Urine pH Ur Specific [place] Urine Protein Urine Glucose (UA) Urine Ketones Urine Blood Urine Nitrite Urine Bilirubin Urine Urobilinogen Ur Leukocyte Esterase Urine WBC (Auto) Urine RBC (Auto) Urine Casts (Auto) U Pathogenic Cast Auto U Epithel Cells (Auto) U Sm Round Cell (Auto) Urine Bacteria (Auto) U Random Total Protein 222.1 H Ur Random Sodium < 18 L < 18 L Ur Random Potassium 32.8 Ur Random Chloride < 11 L 10/26/18 10/26/18 10/27/18 12:36 17:45 05:56 WBC RBC Hgb Hct MCV MCH MCHC RDW Plt Count MPV Absolute Neuts (auto) Neutrophils % Lymphocytes % Monocytes % Eosinophils % Basophils % Nucleated RBC % Sodium Potassium Chloride Carbon Dioxide Anion Gap BUN Creatinine Est GFR (CKD-EPI)AfAm Est GFR (CKD-EPI)NonAf POC Glucometer 170 116 Random Glucose Calcium Phosphorus Magnesium Urine Color Yellow Urine Appearance Cloudy Urine pH 5.0 Ur Specific [place] 1.016 Urine Protein 3+ H Urine Glucose (UA) Trace Urine Ketones Trace H Urine Blood Negative Urine Nitrite Negative Urine Bilirubin Negative Urine Urobilinogen 0.2 Ur Leukocyte Esterase Negative Urine WBC (Auto) 4 Urine RBC (Auto) 3 Urine Casts (Auto) 17 U Pathogenic Cast Auto None seen U Epithel Cells (Auto) 6.6 U Sm Round Cell (Auto) None seen Urine Bacteria (Auto) 0.7 U Random Total Protein Ur Random Sodium Ur Random Potassium Ur Random Chloride 10/27/18 10/27/18 10/27/18 06:32 06:32 10:30 WBC 11.2 H RBC 3.34 L Hgb 9.1 L Hct 28.6 L MCV 85.6 MCH 27.4 MCHC 32.0 RDW 14.7 Plt Count 188 MPV 8.2 Absolute Neuts (auto) 9.4 H Neutrophils % 84.0 H Lymphocytes % 6.2 L Monocytes % 7.2 Eosinophils % 2.3 Basophils % 0.3 Nucleated RBC % 0 Sodium 136 Potassium 4.5 Chloride 93 L Carbon Dioxide 35 H Anion Gap 8 BUN 79.3 H Creatinine 3.2 H Est GFR (CKD-EPI)AfAm 14.48 Est GFR (CKD-EPI)NonAf 12.49 POC Glucometer 140 Random Glucose 111 H Calcium 9.9 Phosphorus 4.8 Magnesium 2.9 H Urine Color Urine Appearance Urine pH Ur Specific [place] Urine Protein Urine Glucose (UA) Urine Ketones Urine Blood Urine Nitrite Urine Bilirubin Urine Urobilinogen Ur Leukocyte Esterase Urine WBC (Auto) Urine RBC (Auto) Urine Casts (Auto) U Pathogenic Cast Auto U Epithel Cells (Auto) U Sm Round Cell (Auto) Urine Bacteria (Auto) U Random Total Protein Ur Random Sodium Ur Random Potassium Ur Random Chloride Assessment/Plan IMP DYSPNEA ACUTE ON CHRONIC CHF ACUTE ON CHRONIC KIDNEY DISEASE ? ASHD HTN DM HLD H/O CVA PNEUMONIA HYPONATREMIA OPACIFICATION LEFT HEMITHORAX ATELECTASIS/EFFUSION PLAN LASIX ON HOLD DUE TO WORSENING RENAL FUNCTION SUPPLEMENTAL O2 NEEDED INHALED BRONCHODILATORS PRN MONITOR LYTES,RENAL FUNCTION PREDNISONE ABX PER ID CHEST PT FOLLOW FINAL PLEURAL STUDIES SEROQUEL HS DR RYAN
--- NOTE | 2018-10-27 13:52 | PN ---
Progress Note (short form) - Note Progress Note: Renal follow up for JACK/Fluid overload Pt seen and examined at the bedside awake and alert very agitated not eating as per family did not sleep last night making urine Vital Signs Temperature 98.1 F 10/27/18 06:00 Pulse Rate 94 H 10/27/18 06:00 Respiratory Rate 20 10/27/18 09:00 Blood Pressure 125/65 10/27/18 06:00 O2 Sat by Pulse Oximetry (%) 97 10/27/18 09:00 Intake & Output 10/24/18 10/25/18 10/26/18 10/27/18 23:59 23:59 23:59 23:59 Intake Total 150 70 705 50 Output Total 100 Balance 150 70 605 50 Weight 68.039 kg NAD on NC O2 RRR scattered rales soft NT/ND no LE or sacral edema CBC, BMP 10/27/18 06:32 10/27/18 06:32 Current Medications Acetaminophen (Tylenol -) 650 mg PO Q6H PRN PRN Reason: FEVER Last Admin: 10/26/18 20:28 Dose: 650 mg Acetylcysteine (Mucomyst 20 Oral / Inh Use Only*) 200 mg NEB RQID [facility] Last Admin: 10/27/18 12:00 Dose: 200 mg Albuterol Sulfate (Ventolin 0.083% Nebulizer Soln -) 1 amp NEB RQID [facility] Last Admin: 10/27/18 12:00 Dose: 1 amp Amlodipine Besylate (Norvasc -) 10 mg PO DAILY [facility] Last Admin: 10/27/18 10:20 Dose: 10 mg Escitalopram Oxalate (Lexapro -) 10 mg PO DAILY [facility] Last Admin: 10/27/18 10:19 Dose: 10 mg Guaifenesin (Robitussin -) 10 ml PO Q6H PRN PRN Reason: COUGH Last Admin: 10/13/18 13:15 Dose: 10 ml Hydralazine HCl (Apresoline -) 50 mg PO BID [facility] Last Admin: 10/27/18 10:22 Dose: 50 mg Piperacillin Sod/Tazobactam (Sod 2.25 gm/ Dextrose) 50 mls @ 100 mls/hr IVPB Q8H-IV [facility]; Protocol Last Admin: 10/27/18 10:21 Dose: 100 mls/hr Insulin Aspart (Novolog Vial Sliding Scale -) 1 vial SQ TIDAC [facility]; Protocol Last Admin: 10/27/18 10:32 Dose: Not Given Metoprolol Succinate (Toprol Xl -) 50 mg PO DAILY [facility] Last Admin: 10/27/18 10:19 Dose: 50 mg Pantoprazole Sodium (Protonix -) 40 mg PO DAILY [facility] Last Admin: 10/27/18 10:18 Dose: 40 mg Prednisone (Deltasone -) 20 mg PO DAILY [facility] Last Admin: 10/27/18 10:19 Dose: 20 mg Rosuvastatin Calcium (Crestor -) 10 mg PO HS [facility] Last Admin: 10/26/18 21:23 Dose: 10 mg Sevelamer Carbonate (Renvela -) 800 mg PO TIDCM [facility] Last Admin: 10/27/18 12:04 Dose: 800 mg 88 year old woman with hx of CKD stage 3 (baseline Cr 1.4-1.6), CHF, HTN, HLD, DM, CAD who presented with sob and admitted for CHF exacerbation witih JACK on CKD. #JACK on CKD #Hyponatremia #CHF exacerbation vs. acute PNA #Hypertension #CAD #DM #Anemia BUN/Cr gradually increasing, given she is not on diuretics suspect mild intravascular volume depletion in setting of poor oral intake Urine studies show renal hypoprofusion with preserved tubular function indicative of intravascular volume depletion however given persistence of chest congestion on CXR we cannot give IVF discussed option of NGT placement or enteral hydration and nutrition, family to discuss and make a decision in the interim encouraged oral hydration and solute intake as tolerated prognosis is poor case discussed with primary and pulmonary Thank you Javon Cota DO
[2018-10-27] MEDS: ROSUVASTATIN CA 10 MG TABLET (FP) PO SCH (22:49)
--- NOTE | 2018-10-27 23:13 | PN ---
Progress Note, Physician History of Present Illness: Pt more lethargic and not eating today - Current Medication List Current Medications: Active Medications Acetaminophen (Tylenol -) 650 mg PO Q6H PRN PRN Reason: FEVER Last Admin: 10/26/18 20:28 Dose: 650 mg Acetylcysteine (Mucomyst 20 Oral / Inh Use Only*) 200 mg NEB RQID [facility] Last Admin: 10/27/18 20:30 Dose: 200 mg Albuterol Sulfate (Ventolin 0.083% Nebulizer Soln -) 1 amp NEB RQID [facility] Last Admin: 10/27/18 20:30 Dose: 1 amp Amlodipine Besylate (Norvasc -) 10 mg PO DAILY [facility] Last Admin: 10/27/18 10:20 Dose: 10 mg Escitalopram Oxalate (Lexapro -) 10 mg PO DAILY [facility] Last Admin: 10/27/18 10:19 Dose: 10 mg Guaifenesin (Robitussin -) 10 ml PO Q6H PRN PRN Reason: COUGH Last Admin: 10/13/18 13:15 Dose: 10 ml Hydralazine HCl (Apresoline -) 50 mg PO BID [facility] Last Admin: 10/27/18 22:55 Dose: Not Given Piperacillin Sod/Tazobactam (Sod 2.25 gm/ Dextrose) 50 mls @ 100 mls/hr IVPB Q8H-IV [facility]; Protocol Last Admin: 10/27/18 17:15 Dose: 100 mls/hr Insulin Aspart (Novolog Vial Sliding Scale -) 1 vial SQ TIDAC [facility]; Protocol Last Admin: 10/27/18 17:16 Dose: 6 units Metoprolol Succinate (Toprol Xl -) 50 mg PO DAILY [facility] Last Admin: 10/27/18 10:19 Dose: 50 mg Pantoprazole Sodium (Protonix -) 40 mg PO DAILY [facility] Last Admin: 10/27/18 10:18 Dose: 40 mg Prednisone (Deltasone -) 20 mg PO DAILY [facility] Last Admin: 10/27/18 10:19 Dose: 20 mg Rosuvastatin Calcium (Crestor -) 10 mg PO HS [facility] Last Admin: 10/27/18 22:49 Dose: 10 mg Sevelamer Carbonate (Renvela -) 800 mg PO TIDCM [facility] Last Admin: 10/27/18 17:17 Dose: Not Given - Objective Vital Signs: Vital Signs Temperature 97.9 F 10/27/18 18:00 Pulse Rate 89 10/27/18 18:00 Respiratory Rate 19 10/27/18 20:54 Blood Pressure 110/63 10/27/18 18:00 O2 Sat by Pulse Oximetry (%) 97 10/27/18 20:54 Cardiovascular: Yes: WNL, Regular Rate and Rhythm Respiratory: Yes: Diminished Gastrointestinal: Yes: WNL, Normal Bowel Sounds, Soft Edema: No Labs: CBC, BMP 10/27/18 06:32 10/27/18 06:32 INR, PTT INR 0.95 (0.83-1.09) 10/22/18 09:48 Problem List - Problems (1) Metabolic encephalopathy Assessment/Plan: Long d/w pt's son an family about poor condition and outcome At this point spoke to family about NGT placement for nutrition and hyddration However family has not decided that they do not want NGT/feeding tube and want hospice Also spoke to them about DNR wc they want to think about Palliative care consult for hospice ?Slightly dehydrated Code(s): G93.41 - METABOLIC ENCEPHALOPATHY (2) Pneumonia Assessment/Plan: S/P thoracentesis Follow cytology/cultures Repeat CXR showed slight increase in congestive and infiltrative changes Cont IV zosyn and po prednisone Cont nebulizers Cont BIPAP WBC decreasing Code(s): J18.9 - PNEUMONIA, UNSPECIFIED ORGANISM (3) Acute on chronic systolic (congestive) heart failure Assessment/Plan: Lasix on hold due to increasing creatinine As per cardio Code(s): I50.23 - ACUTE ON CHRONIC SYSTOLIC (CONGESTIVE) HEART FAILURE (4) CKD (chronic kidney disease) Assessment/Plan: Creatinine increasing again Code(s): N18.9 - CHRONIC KIDNEY DISEASE, UNSPECIFIED (5) HTN (hypertension) Assessment/Plan: BP stable Cont metoprolol/lisinopril Code(s): I10 - ESSENTIAL (PRIMARY) HYPERTENSION (6) HLD (hyperlipidemia) Assessment/Plan: Cont crestor Code(s): E78.5 - HYPERLIPIDEMIA, UNSPECIFIED (7) Osteoarthritis Code(s): M19.90 - UNSPECIFIED OSTEOARTHRITIS, UNSPECIFIED SITE Qualifiers: Osteoarthritis location: knee Osteoarthritis type: unspecified Laterality : right Qualified Code(s): M17.11 - Unilateral primary osteoarthritis, right knee (8) CAD (coronary artery disease) Assessment/Plan: Cont plavix Code(s): I25.10 - ATHSCL HEART DISEASE OF [place] CORONARY ARTERY W/O ANG PCTRS
[2018-10-28] MEDS ORDERED: PIPERACILLIN/TAZOBACTAM 2.25 GM VIAL IVPB ONE ×3 (01:02→16:51)
[2018-10-28] MEDS ORDERED: DEXTROSE 5%-WATER - 50 ML IVPB ONE ×3 (01:02→16:51)
[2018-10-28] MEDS: PIPERACILLIN/TAZOB 2.25 GM 2.25 GM in DEXTROSE 5%-WATER - 50 ML IVPB SCH ×3 (01:05→17:56)
[2018-10-28] MEDS: INSULIN SLIDING SCALE (NOVOLOG) 1 VIAL SQ SCH ×3 (06:00→16:46)
[2018-10-28] MEDS: ALBUTEROL SO4 0.083% IH SOL 2.5 MG/3 ML VIAL.NEB. NEB SCH ×4 (08:35→20:17)
[2018-10-28] MEDS: ACETYLCYSTEINE 20% 200MG/ML 4 ML VIAL *FOR ORAL / INH USE ONLY NEB SCH ×3 (08:36→20:17)
[2018-10-28] MEDS ORDERED: PT OWN MED DRAWER 7, Y5N ONE (08:51)
[2018-10-28] MEDS: PANTOPRAZOLE 40 MG TABLET (FP) PO SCH (09:24)
[2018-10-28] MEDS: hydrALAZINE HCL 25 MG TABLET (FP) PO SCH ×2 (09:24→22:48)
[2018-10-28] MEDS: amLODIPine BESYLATE 10 MG TABLET (FP) PO SCH (09:24)
[2018-10-28] MEDS: metoPROLOL SUCCINATE 25 MG TAB.SR.24H (FP) PO SCH (09:24)
[2018-10-28] MEDS: predniSONE 20 MG TABLET (UD) PO SCH (09:24)
[2018-10-28] MEDS: ESCITALOPRAM OXALATE 10 MG TABLET (FP) PO SCH (09:24)
[2018-10-28] MEDS: SEVELAMER CARBONATE 800 MG TAB (FP) PO SCH ×3 (09:24→16:47)
[2018-10-28] MEDS ORDERED: MORPHINE SULFATE 2 MG/ML VIAL IVPUSH ONE ×2 (11:30→23:45)
--- NOTE | 2018-10-28 13:41 | PN ---
Progress Note (short form) - Note Progress Note: s: patient sleeping comfortably. Family present, discussed transition to hospice care, decline feeding tube. She received morphine this morning with improvement. Current Medications Acetaminophen (Tylenol -) 650 mg PO Q6H PRN PRN Reason: FEVER Last Admin: 10/26/18 20:28 Dose: 650 mg Acetylcysteine (Mucomyst 20 Oral / Inh Use Only*) 200 mg NEB RQID [facility] Last Admin: 10/28/18 11:54 Dose: 200 mg Albuterol Sulfate (Ventolin 0.083% Nebulizer Soln -) 1 amp NEB RQID [facility] Last Admin: 10/28/18 11:46 Dose: 1 amp Amlodipine Besylate (Norvasc -) 10 mg PO DAILY [facility] Last Admin: 10/28/18 09:24 Dose: Not Given Escitalopram Oxalate (Lexapro -) 10 mg PO DAILY [facility] Last Admin: 10/28/18 09:24 Dose: Not Given Guaifenesin (Robitussin -) 10 ml PO Q6H PRN PRN Reason: COUGH Last Admin: 10/13/18 13:15 Dose: 10 ml Hydralazine HCl (Apresoline -) 50 mg PO BID [facility] Last Admin: 10/28/18 09:24 Dose: Not Given Piperacillin Sod/Tazobactam (Sod 2.25 gm/ Dextrose) 50 mls @ 100 mls/hr IVPB Q8H-IV [facility]; Protocol Last Admin: 10/28/18 09:25 Dose: 100 mls/hr Insulin Aspart (Novolog Vial Sliding Scale -) 1 vial SQ TIDAC [facility]; Protocol Last Admin: 10/28/18 12:23 Dose: Not Given Metoprolol Succinate (Toprol Xl -) 50 mg PO DAILY [facility] Last Admin: 10/28/18 09:24 Dose: Not Given Pantoprazole Sodium (Protonix -) 40 mg PO DAILY [facility] Last Admin: 10/28/18 09:24 Dose: Not Given Prednisone (Deltasone -) 20 mg PO DAILY [facility] Last Admin: 10/28/18 09:24 Dose: Not Given Rosuvastatin Calcium (Crestor -) 10 mg PO HS [facility] Last Admin: 10/27/18 22:49 Dose: 10 mg Sevelamer Carbonate (Renvela -) 800 mg PO TIDCM [facility] Last Admin: 10/28/18 12:23 Dose: Not Given Vital Signs Period Temp Pulse Resp BP Sys/Vasquez Pulse Ox Last 24 Hr 97.9 F-98.9 F 85-95 18-20 106-131/54-65 97-97 Constitutional: Yes: No Distress, Calm Eyes: No: Sclera Icterus HENT: No: Nasal Congestion Cardiovascular: Yes: Regular Rate and Rhythm, JVD (possible (TDS)), S1, S2, Other (PMI non diplaced). No: Gallop, Murmur Respiratory: Yes: CTA Bilaterally. No: Accessory Muscle Use Gastrointestinal: Yes: Normal Bowel Sounds, Soft. No: Tenderness Musculoskeletal: Yes: Other (No kyphosis) Extremities: No: Cyanosis Edema: No Integumentary: No: Jaundice Neurological: Yes: Lethargy. No: Seizure Psychiatric: No: Agitated Assessment/Plan Echo: LVSF appears mldly reduced, 40-45%. nl RV. mild MR. Acute on chronic systolic CHF, pleural effusion, ? PNA/parapneumonic effusion: -EF 40-45% -thoracentesis done, CXR improved (10/27: L lung intraalveolar infiltrates much reduced vs prior, L effusion present) - holding lasix, likely dehydrated, poor PO intake and decline feeding tube. discussed with family -pursuing hospice and comfort care, palliative care consulted - cont current cardiac meds for now Suspected underlying CAD: -no signs acs -pt/family have declined cath due to MIKE risks (see prior dr welsh notes) , plavix dc'ed - plan for hospice care as above JACK on CKD: -baseline creat 1.5-2.0 -renal fxn worsened here, while not on diuretics, declining PEG tube HTN: - stable, cont current meds for now NSVT: -cont bb Altered MS: component of -head ct w/o acute changes -Likely due to Ativan, improved
--- NOTE | 2018-10-28 15:32 | PN ---
Progress Note (short form) - Note Progress Note: Renal follow up for JACK/Fluid overload Pt seen and examined at the bedside agitated overnight family decided on palliative care still not eating Vital Signs Temperature 98.9 F 10/28/18 06:00 Pulse Rate 95 H 10/28/18 09:17 Respiratory Rate 20 10/28/18 09:17 Blood Pressure 122/54 L 10/28/18 09:17 O2 Sat by Pulse Oximetry (%) 97 10/28/18 09:17 Intake & Output 10/25/18 10/26/18 10/27/18 10/28/18 23:59 23:59 23:59 23:59 Intake Total 70 705 110 50 Output Total 100 Balance 70 605 110 50 Weight 68.039 kg NAD on NC O2 RRR scattered rales soft NT/ND no LE or sacral edema CBC, BMP 10/27/18 06:32 10/27/18 06:32 Current Medications Acetaminophen (Tylenol -) 650 mg PO Q6H PRN PRN Reason: FEVER Last Admin: 10/26/18 20:28 Dose: 650 mg Acetylcysteine (Mucomyst 20 Oral / Inh Use Only*) 200 mg NEB RQID [facility] Last Admin: 10/28/18 11:54 Dose: 200 mg Albuterol Sulfate (Ventolin 0.083% Nebulizer Soln -) 1 amp NEB RQID [facility] Last Admin: 10/28/18 11:46 Dose: 1 amp Amlodipine Besylate (Norvasc -) 10 mg PO DAILY [facility] Last Admin: 10/28/18 09:24 Dose: Not Given Escitalopram Oxalate (Lexapro -) 10 mg PO DAILY [facility] Last Admin: 10/28/18 09:24 Dose: Not Given Guaifenesin (Robitussin -) 10 ml PO Q6H PRN PRN Reason: COUGH Last Admin: 10/13/18 13:15 Dose: 10 ml Hydralazine HCl (Apresoline -) 50 mg PO BID [facility] Last Admin: 10/28/18 09:24 Dose: Not Given Piperacillin Sod/Tazobactam (Sod 2.25 gm/ Dextrose) 50 mls @ 100 mls/hr IVPB Q8H-IV [facility]; Protocol Last Admin: 10/28/18 09:25 Dose: 100 mls/hr Insulin Aspart (Novolog Vial Sliding Scale -) 1 vial SQ TIDAC [facility]; Protocol Last Admin: 10/28/18 12:23 Dose: Not Given Metoprolol Succinate (Toprol Xl -) 50 mg PO DAILY [facility] Last Admin: 10/28/18 09:24 Dose: Not Given Pantoprazole Sodium (Protonix -) 40 mg PO DAILY [facility] Last Admin: 10/28/18 09:24 Dose: Not Given Prednisone (Deltasone -) 20 mg PO DAILY [facility] Last Admin: 10/28/18 09:24 Dose: Not Given Rosuvastatin Calcium (Crestor -) 10 mg PO HS [facility] Last Admin: 10/27/18 22:49 Dose: 10 mg Sevelamer Carbonate (Renvela -) 800 mg PO TIDCM [facility] Last Admin: 10/28/18 12:23 Dose: Not Given 88 year old woman with hx of CKD stage 3 (baseline Cr 1.4-1.6), CHF, HTN, HLD, DM, CAD who presented with sob and admitted for CHF exacerbation witih JACK on CKD. #JACK on CKD #Hyponatremia #CHF exacerbation vs. acute PNA #Hypertension #CAD #DM #Anemia for palliative care would discontinue further blood draws no IVF at this time will sign off case at this time please call if there are any questions or concerns thank you for allowing us to take part in the care of this patient Thank you Javon Cota DO
[2018-10-28] MEDS ORDERED: MORPHINE SULFATE 2 MG/ML VIAL IVPUSH PRN (21:00)
--- NOTE | 2018-10-28 21:00 | PN ---
Progress Note, Physician History of Present Illness: {t remains agitated w/ moaning - Current Medication List Current Medications: Active Medications Acetaminophen (Tylenol -) 650 mg PO Q6H PRN PRN Reason: FEVER Last Admin: 10/26/18 20:28 Dose: 650 mg Acetylcysteine (Mucomyst 20 Oral / Inh Use Only*) 200 mg NEB RQID [facility] Last Admin: 10/28/18 11:54 Dose: 200 mg Albuterol Sulfate (Ventolin 0.083% Nebulizer Soln -) 1 amp NEB RQID [facility] Last Admin: 10/28/18 15:58 Dose: Not Given Amlodipine Besylate (Norvasc -) 10 mg PO DAILY [facility] Last Admin: 10/28/18 09:24 Dose: Not Given Escitalopram Oxalate (Lexapro -) 10 mg PO DAILY [facility] Last Admin: 10/28/18 09:24 Dose: Not Given Guaifenesin (Robitussin -) 10 ml PO Q6H PRN PRN Reason: COUGH Last Admin: 10/13/18 13:15 Dose: 10 ml Hydralazine HCl (Apresoline -) 50 mg PO BID [facility] Last Admin: 10/28/18 09:24 Dose: Not Given Piperacillin Sod/Tazobactam (Sod 2.25 gm/ Dextrose) 50 mls @ 100 mls/hr IVPB Q8H-IV [facility]; Protocol Last Admin: 10/28/18 17:56 Dose: 100 mls/hr Insulin Aspart (Novolog Vial Sliding Scale -) 1 vial SQ TIDAC [facility]; Protocol Last Admin: 10/28/18 16:46 Dose: Not Given Metoprolol Succinate (Toprol Xl -) 50 mg PO DAILY [facility] Last Admin: 10/28/18 09:24 Dose: Not Given Pantoprazole Sodium (Protonix -) 40 mg PO DAILY [facility] Last Admin: 10/28/18 09:24 Dose: Not Given Prednisone (Deltasone -) 20 mg PO DAILY [facility] Last Admin: 10/28/18 09:24 Dose: Not Given Rosuvastatin Calcium (Crestor -) 10 mg PO HS [facility] Last Admin: 10/27/18 22:49 Dose: 10 mg Sevelamer Carbonate (Renvela -) 800 mg PO TIDCM [facility] Last Admin: 10/28/18 16:47 Dose: Not Given - Objective Vital Signs: Vital Signs Temperature 98.2 F 10/28/18 18:00 Pulse Rate 94 H 10/28/18 18:00 Respiratory Rate 18 10/28/18 18:00 Blood Pressure 114/70 10/28/18 18:00 O2 Sat by Pulse Oximetry (%) 97 10/28/18 09:17 HENT: Yes: WNL Neck: Yes: WNL, Supple Cardiovascular: Yes: WNL, Regular Rate and Rhythm Respiratory: Yes: WNL, Regular Edema: No Labs: CBC, BMP 10/27/18 06:32 10/27/18 06:32 INR, PTT INR 0.95 (0.83-1.09) 10/22/18 09:48 Problem List - Problems (1) Metabolic encephalopathy Assessment/Plan: Long d/w pt's son an family about poor condition and outcome Family foes not wnat any NGT or feeding tube Family does not want any NGT/feeding tube Will start IV morphine Palliative care consult noted Pt is now hospice Pt is DNR/DNI Family also do not want any further labs Code(s): G93.41 - METABOLIC ENCEPHALOPATHY (2) Pneumonia Assessment/Plan: S/P thoracentesis Follow cytology/cultures Repeat CXR showed slight increase in congestive and infiltrative changes Cont IV zosyn and po prednisone Cont nebulizers Cont BIPAP WBC decreasing Code(s): J18.9 - PNEUMONIA, UNSPECIFIED ORGANISM (3) Acute on chronic systolic (congestive) heart failure Assessment/Plan: Lasix on hold due to increasing creatinine As per cardio Code(s): I50.23 - ACUTE ON CHRONIC SYSTOLIC (CONGESTIVE) HEART FAILURE (4) CKD (chronic kidney disease) Assessment/Plan: Creatinine increasing again Code(s): N18.9 - CHRONIC KIDNEY DISEASE, UNSPECIFIED (5) HTN (hypertension) Assessment/Plan: BP stable Pt unable to tolerate PO Cont to monitor Code(s): I10 - ESSENTIAL (PRIMARY) HYPERTENSION (6) HLD (hyperlipidemia) Code(s): E78.5 - HYPERLIPIDEMIA, UNSPECIFIED (7) Osteoarthritis Code(s): M19.90 - UNSPECIFIED OSTEOARTHRITIS, UNSPECIFIED SITE Qualifiers: Osteoarthritis location: knee Osteoarthritis type: unspecified Laterality : right Qualified Code(s): M17.11 - Unilateral primary osteoarthritis, right knee (8) CAD (coronary artery disease) Code(s): I25.10 - ATHSCL HEART DISEASE OF [employer] CORONARY ARTERY W/O ANG PCTRS
[2018-10-28] MEDS: ROSUVASTATIN CA 10 MG TABLET (FP) PO SCH (22:49)
[2018-10-29] MEDS ORDERED: PIPERACILLIN/TAZOBACTAM 2.25 GM VIAL IVPB ONE ×2 (01:28→10:54)
[2018-10-29] MEDS ORDERED: DEXTROSE 5%-WATER - 50 ML IVPB ONE ×2 (01:28→10:54)
[2018-10-29] MEDS: PIPERACILLIN/TAZOB 2.25 GM 2.25 GM in DEXTROSE 5%-WATER - 50 ML IVPB SCH ×2 (01:41→11:03)
[2018-10-29] MEDS ORDERED: MORPHINE SULFATE 2 MG/ML VIAL IVPUSH PRN (02:15)
[2018-10-29] MEDS: INSULIN SLIDING SCALE (NOVOLOG) 1 VIAL SQ SCH ×2 (06:25→11:22)
[2018-10-29] MEDS: ACETYLCYSTEINE 20% 200MG/ML 4 ML VIAL *FOR ORAL / INH USE ONLY NEB SCH ×3 (08:00→16:08)
[2018-10-29] MEDS: ALBUTEROL SO4 0.083% IH SOL 2.5 MG/3 ML VIAL.NEB. NEB SCH ×3 (08:00→16:08)
[2018-10-29] MEDS: SEVELAMER CARBONATE 800 MG TAB (FP) PO SCH ×2 (09:12→11:58)
[2018-10-29] MEDS: hydrALAZINE HCL 25 MG TABLET (FP) PO SCH (11:08)
[2018-10-29] MEDS: PANTOPRAZOLE 40 MG TABLET (FP) PO SCH (11:09)
[2018-10-29] MEDS: amLODIPine BESYLATE 10 MG TABLET (FP) PO SCH (11:09)
[2018-10-29] MEDS: predniSONE 20 MG TABLET (UD) PO SCH (11:09)
[2018-10-29] MEDS: ESCITALOPRAM OXALATE 10 MG TABLET (FP) PO SCH (11:09)
[2018-10-29] MEDS: metoPROLOL SUCCINATE 25 MG TAB.SR.24H (FP) PO SCH (11:09)
--- NOTE | 2018-10-29 12:38 | DS ---
Physical Examination Vital Signs: Vital Signs Temperature 98.4 F 10/29/18 02:08 Pulse Rate 99 H 10/29/18 02:08 Respiratory Rate 20 10/29/18 02:08 Blood Pressure 115/59 L 10/29/18 02:08 O2 Sat by Pulse Oximetry (%) 96 10/28/18 21:00 Labs: CBC, BMP 10/27/18 06:32 10/27/18 06:32 Discharge Summary Reason For Visit: ACUTE ON CHRONIC CHF Current Active Problems Acute on chronic systolic (congestive) heart failure (Acute) CHF exacerbation (Acute) CVA (cerebral vascular accident) (Acute) Dyspnea (Acute) Leukocytosis (Acute) Metabolic encephalopathy (Acute) Pneumonia (Acute) Acute on chronic renal failure Respiratory failure Anemia HTN HLD Pleural effusions Functional Quadriplegia Hospital Course: Pt is a 88 y/o female w/ PMH significant for CHF (on O2 3L NC at home, never required bipap or intubation), HTN, HLD, DM and CKD, CAD and CVA . Pt presented to the ER from PCP office (Dr. Rayo Alberts) for CHF exacerbation. Pt was diuresised w/ lasix wc was than stopped due to worsening renal failure. Pt's last creatinine was 10/27/18 was 3.2. Pt was treated for pneumomia w/ IV zosyn wc she is still taking. Pt also was seen by pumonary/nephrology and pulmonary. Pt found to have large pleural effusions and underwent thoracentesis wc results are still pending. However pt has toxic encephalopathy/chf exacerbation/acute on chronic worsening renal failure and chronic respiratory failure. Pt has become more agitate and ativan was tried but pt was lethargic for more than 24 hrs and therefore it was not given again. Pt is unable to tolerate PO and family has refused any NGT or feeding tubes. Pt was seen by palliative care and is now hospice and DNR/DNI and is to be tansferred to [place] for [facility] car. Family has also refused any further blood testings. Condition: Guarded - Instructions Diet, Activity, Other Instructions: Aspiration precautions Disposition: SNF FACILITY - Home Medications Comprehensive Discharge Medication List: Ambulatory Orders Clopidogrel Bisulfate [Plavix] 75 mg PO DAILY 04/20/18 Linagliptin [Tradjenta] 5 mg PO DAILY 04/20/18 Metoprolol Succinate [Toprol Xl] 25 mg PO DAILY 04/20/18 Nifedipine ER [Procardia XL -] 30 mg PO DAILY 04/20/18 Rosuvastatin [Crestor -] 10 mg PO HS #30 tablet 05/09/18 Olmesartan Medoxomil [Benicar] 20 mg PO DAILY #30 tablet 05/10/18 Escitalopram Oxalate [Lexapro -] 10 mg PO DAILY 10/02/18 Acetylcysteine Po/INH 20% [Mucomyst 20 Oral / INH Use Only*] 200 mg NEB RQID vial 10/29/18 Albuterol 0.083% Nebulizer Tiffany [Ventolin 0.083% Nebulizer Soln -] 1 amp NEB RQID amp 10/29/18 Amlodipine Besylate [Norvasc -] 10 mg PO DAILY tablet 10/29/18 Guaifenesin [Robitussin -] 10 ml PO Q6H PRN cup 10/29/18 Insulin Sliding Scale [Novolog Vial Sliding Scale -] 1 vial SQ TIDAC units Metoprolol Succinate [Toprol XL -] 50 mg PO DAILY tab.sr.24h 10/29/18 Morphine Sulfate 2 mg IVPUSH Q6H PRN #1 vial MDD 1 10/29/18 Pantoprazole Sodium [Protonix -] 40 mg PO DAILY tablet.ec 10/29/18 Piperacillin/Tazob 2.25 gm [Zosyn -] 2.25 gm IVPB Q8H-IV vial 10/29/18 Sevelamer Carbonate [Renvela -] 800 mg PO TIDCM tab 10/29/18 hydrALAZINE HCL [Apresoline -] 50 mg PO BID tablet 10/29/18 predniSONE [Deltasone -] 20 mg PO DAILY tablet 10/29/18
[2018-10-29] MEDS ORDERED: MORPHINE SULFATE 2 MG/ML VIAL IVPUSH ONE (13:45)
[2018-10-29 14:15] VITALS: BP 118/57; PULSE 102; TEMP 98.9
== END 2018-10-29 16:38 | disposition hospice, inpatient (51) | DRG 291 ==
LOC: JER 10:56 → JERBED 13:38 → OBSVTOIN 16:48 → J4S 17:07
PROVIDERS: ADMIT Internal Medicine; ATTEND Internal Medicine
PROC: 0W9B3ZX Drainage of Left Pleural Cavity, Percutaneous Approach, Diagnostic (ICD-10-PCS; principal; 2018-10-22)
DX: I13.0 Hypertensive heart and chronic kidney disease with heart failure and stage 1 through stage 4 chronic kidney disease, or unspecified chronic kidney disease (principal); I50.23 Acute on chronic systolic (congestive) heart failure; J18.9 Pneumonia, unspecified organism; G93.41 Metabolic encephalopathy; R53.2 Functional quadriplegia; E87.1 Hypo-osmolality and hyponatremia; I69.351 Hemiplegia and hemiparesis following cerebral infarction affecting right dominant side; N17.9 Acute kidney failure, unspecified; I47.1 Supraventricular tachycardia; J98.11 Atelectasis; J95.811 Postprocedural pneumothorax; J96.10 Chronic respiratory failure, unspecified whether with hypoxia or hypercapnia; E11.22 Type 2 diabetes mellitus with diabetic chronic kidney disease; Z99.81 Dependence on supplemental oxygen; E78.5 Hyperlipidemia, unspecified; I25.10 Atherosclerotic heart disease of native coronary artery without angina pectoris; I42.8 Other cardiomyopathies; D64.9 Anemia, unspecified; E66.9 Obesity, unspecified; Y83.8 Other surgical procedures as the cause of abnormal reaction of the patient, or of later complication, without mention of misadventure at the time of the procedure; Z68.27 Body mass index [BMI] 27.0-27.9, adult; N18.3 Chronic kidney disease, stage 3 (moderate); Z66 Do not resuscitate; Z79.4 Long term (current) use of insulin
CPT/HCPCS: 36415; 36600; 70450-TC; 71045-TC-FY; 71250-TC; 76942; 80048; 80053; 81003; 82042; 82150; 82436; 82465; 82533; 82550; 82570; 82803; 82945; 82962; 83036; 83615; 83735; 83880; 83930; 83935; 83970; 83986; 84100; 84133; 84156; 84157; 84300; 84443; 84478; 84484; 85025; 85027; 85610; 87040; 87070; 87075; 87086; 87102; 87116; 87186; 87205; 87206; 87210; 87899; 88108; 88305-TC; 93005; 93010; 93306-TC; 94640; 94660; 94761; 97116-GP; 97161-GP; 99284-25; G0378; J1644